=== PATIENT | female | born 1970 | race Caucasian/White ===

== ENCOUNTER → 2016-12-24 | Outpatient (CLI) | payer MEDICAID ==
[~2016-12-24] MED LIST: /METO5TA PO; ALBU17IN INH; ALBU83IN INH; AMBI10TA PO; BACITAB3 PO; BACT800T5 PO; BUSP10TA PO; BUSP15TA47 PO; CALTTAB2 PO; CELE20TA PO; CELE40TA PO; CENTRAL LINE FLUSH IV; CIPR500T3 PO; CITA20TA4 PO; CITR1SOL PO; CRES40TA PO; CRES5TAB PO; DIFL150T PO; DIOV80TA3 PO; DOXY75CA3 PO; DRIS50002 PO; ELIQ5TAB PO; FLUC150T PO; FOLI1TAB2 PO; HUMA100I SC; HUMA100I3 SC; INSUDET SC; INSUHUMDS SC; KEFL500C7 PO; KLOR1POW2 PO; LASI20TA PO; LASI40TA PO; LEVA750T PO; LEVO500T PO; LEVO750T PO; LIDO1DIS2 TD; LIDO5DIS36 TD; META800T82 PO; METH2.5TA PO; MILKSUS5 PO; MULTTAB6 PO; PERC10TA17 PO; PERC5TAB PO; PERC7.5T12 PO; PERCOCET PO; PHEN25IN3 PO; PRED10TA PO; PROA1AER INH; PROBCAP14 PO; PROBCAP4 PO; PROZ40CA PO; ROBA750T4 PO; SENO8.6T10 PO; SENO8.6T9 PO; SERO1TAB PO; SILV1CRE19 TOP; SKEL-29 PO; SPIR25TA2 PO; TYLE650T30 PO; VALS1TAB49 PO; VANC500I IV; VITA500047 PO; VITMTA PO; ZYVO100T PO; mag citrate PO
--- NOTE | 2016-12-24 11:07 | REPMRS ---
Patient History The patient states she had a clinical breast exam in 2015. Patient has history of other cancer at age 37. Family history of breast cancer in 3 maternal aunts under age 50, endometrial cancer in maternal aunt under age 50, unknown cancer in maternal aunt under age 50, endometrial cancer in maternal grandmother under age 50, unknown cancer in 2 maternal cousins under age 50, endometrial cancer in 2 other maternal cousins under age 50, breast cancer in 2 other maternal cousins under age 50, and unknown cancer in 2 maternal uncles under age 50. Took hormonal contraceptives for 11 years. Patient states she has had a 9 lbs intentional weight loss since her last mammo Patient has very limited movement of both shoulders Digital Mammo Screening Bilat: December 24, 2016 - Exam #: [id number] Bilateral CC and MLO view(s) were taken. Technologist: Jessica Godinez, Technologist Prior study comparison: November 09, 2015, bilateral digital mammo screening bilat performed at [facility]. November 07, 2014, bilateral bilat screen digital mammo, performed at [facility] ([facility]). FINDINGS: There are scattered fibroglandular densities. There has been no change in the appearance of the mammogram from the prior studies. There is a mild amount of residual fibroglandular tissue which is fairly symmetric. There is no interval development of dominant mass, architectural distortion, or clustered microcalcification suggestive of malignancy. ASSESSMENT: BI-RADS/ACR category 1 mammogram. Negative. Recommendation Routine screening mammogram in 1 year (for women over age 40). This mammogram was interpreted with the aid of an FDA-approved computer-aided dectection system. Electronically Signed By: Shawn Aguirre MD 12/24/16 [id number]
== END ==
LOC: M RAD 10:08
PROVIDERS: ATTEND Internal Medicine
DX: Z12.39 Encounter for other screening for malignant neoplasm of breast (principal)

== ENCOUNTER 2016-12-26 10:12 | Emergency (ER) | payer MEDICAID ==
--- NOTE | 2016-12-26 11:11 | REP ---
Clinical: Trauma . Comparison: None . Findings: The ventricles, sulci, and cisterns are normal in position and appearance. Aguirre-white differentiation is maintained. No acute intracranial hemorrhage, mass/mass effect, pathology or trauma/injury. No evidence for acute infarction. No extra-axial fluid collection. Calvarium is intact. Paranasal sinuses and mastoid air cells are clear. Impression: Normal noncontrast head CT. No evidence for acute intracranial pathology or trauma/injury. Signed by Kelechi Gonzalez MD 12/26/2016 11:03 A
--- NOTE | 2016-12-26 11:29 | EDDOCDS ---
Physician Documentation [facility] Name: Ayaka Levine Age: 46 yrs Sex: Female : 1970 Arrival Date: 12/26/2016 Time: 10:12 Bed 12 Private MD: Agustin Boogie Disposition: 12/26 11:21 Critical Care: Critical care not applicable. pc Disposition: 12/26/16 11:22 Discharged to Home/Self Care. Impression: Fall on same level from slipping, tripping and stumbling, Contusion of scalp. - Condition is Stable. - Discharge Instructions: Facial or Scalp Contusion. - Medication Reconciliation, Local Pharmacy Hours form. - Follow up: Agustin Boogie; When: Call to arrange an appointment; Reason: Continuance of care. - Problem is new. - Symptoms have improved. HPI: 10:46 This 46 yrs old Female presents to ER via Walkin/Carried/Asstd with pc complaints of Fall Injury. 10:46 The history is obtained from the patient. She has chronic right leg weakness and says pc it gave out while she was walking in her home today. She fell and says she struck her head on a coffee table. She denies LOC but says she has vomited twice since. She is on Eliquis for a right leg DVT. She also complains of aching in her wrists and forearms. At their worst, the symptoms were moderate. In the emergency department, the symptoms are mild. The patient has experienced similar episodes in the past, several times. The patient has not recently seen a physician. Historical: - Allergies: Dilaudid (stops breathing); Latex (Rash); - Home Meds: 1. albuterol sulfate 2.5 mg /3 mL (0.083 %) Inhl nebu every 6 hours 2. Aldactone 25 mg Oral tab 1 tab once daily 3. Celexa 20 mg Oral tab 1 tab once daily 4. Crestor 40 mg Oral tab 1 tab nightly 5. Diovan 40 mg Oral tab once daily 6. Ambien 10 mg Oral tab 1 tab once daily 7. BuSpar 15 mg Oral tab three times a day 8. Lasix 40 mg Oral tab 1 tab once daily 9. Percocet 10-325 mg Oral tab 1 tab twice a day as needed 10. Seroquel 250mg Oral once daily 11. Humalog 100 unit/mL Sub-Q crtg With every meal 12. Levemir 70 units subcutaneous soln daily 13. Eliquis 5 mg oral tab 1 tab 2 times per day - PMHx: Anxiety; Asthma; back pain; Diabetes - IDDM: controlled; DVT; Hypercholesterolemia; Hypertension; Rheumatoid Arthritis; - PSHx: Appendectomy; Oophorectomy- Right; Cholecystectomy; Hysterectomy; toe right foot; shoulder surgeries bilateral 3 times each; - The history from nurses notes was reviewed: and I agree with what is documented. - Social history: Smoking status: Patient states former smoker of tobacco. No barriers to communication noted, The patient speaks fluent Turkmen, Speaks appropriately for age. - : The pt / caregiver states he / she is not on anticoagulants. Home medication list is obtained from the patient. - Hospitalizations: : No recent hospitalization is reported. - Exposure Risk Screening:: None identified. - Immunization history:: All immunizations up-to-date. - Family history: Not pertinent. - Social history:: the patient is a non-smoker, the patient does not drink alcohol. 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 pc Exam: 10:46 General Appearance: no acute distress, alert. pc 10:46 EENT: normal eye inspection, ears, nose and throat normal, pharynx normal, mucous membranes moist no apparent trauma, no signs of trauma to scalp at point of patient identified contact with the table. 10:46 Neck: The exam reveals no acute abnormalities. ROM is normal and painless. No nuchal rigidity is noted.. 10:46 Respiratory: no respiratory distress, normal breath sounds, chest non-tender. 10:46 CVS: regular pulse rate, regular rhythm, normal S1 and S2, no murmurs, strong peripheral pulses. 10:46 Abdomen: soft, non-tender, no organomegaly, normal bowel sounds. 10:46 Back: normal inspection. 10:46 Skin: skin color is normal, warm, dry. 10:46 Extremities: The extremities have a grossly normal appearance, are non-tender, without acute ROM abnormalities. 10:46 Neuro: oriented x 3, cranial nerves normal as tested, no motor deficits, no sensory deficits. 10:46 Psych: normal mood. Vital Signs: 10:14 BP 147 / 79; Pulse 94; Resp 18; Temp 97.6(O); Pulse Ox 100% on R/A; Weight 111.13 kg / ct3 245 lbs (R); Height 5 ft. 7 in. (170.18 cm) (R); Pain 8/10; 11:27 BP 117 / 58; Pulse 94; Resp 16; Temp 98.7(TE); Pulse Ox 96% on R/A; Pain 9/10; mlb1 10:14 Body Mass Index 38.37 (111.13 kg, 170.18 cm) ct3 MDM: 10:46 Differential Diagnosis: fall, head injury without evidence of trauma, on Eliquis. Plan: pc CT. 10:47 CT Head Without Contrast Ordered. EDFL 11:21 Data reviewed: old medical records, vital signs, nurses notes, all radiology studies pc and available results. Test interpretation: interpreted by Radiologist and personally reviewed, Head CT; no acute disease. The patient has been re-examined and re-evaluated. The clinical presentation did not require any ED treatment or interventions. Disposition: The historical points, examination findings, and any diagnostic results supporting the provided diagnosis, were discussed with the patient or legal guardian. The need for outpatient follow up with the provider listed on their discharge instructions was discussed. They were encouraged to return to [facility], or the nearest ED, if symptoms worsen/persist, or for any other questions/concerns. Signatures: Dispatcher [employer] Saul Melton MD MD pc Barney, Michael B RN RN mlb1 Jessica EscotoRN RN jo3 MTDEnriqueta
--- NOTE | 2016-12-26 11:29 | EDDOCDS ---
Nurse's Notes [facility] Name: Ayaka Levine Age: 46 yrs Sex: Female : 1970 Arrival Date: 12/26/2016 Time: 10:12 Bed 12 Private MD: Agustin Boogie Diagnosis: Fall on same level from slipping, tripping and stumbling;Contusion of scalp Presentation: 12/26 10:27 Presenting complaint: Patient states: Pt fell at 0800 and has pain to mario wrists, head jo3 and right hip. Had 2 episodes of vomiting at home. Pt is on anticoagulants. Adult Sepsis Screening: The patient does not have new or worsening altered mentation. Patient's respiratory rate is less than 22. Systolic blood pressure is greater than 100. Patient has a qSOFA score of 0- Negative Sepsis Screen. Suicide/Homicide risk assessment- the patient denies having any suicidal and/or homicidal ideations and does not present with any other emotional, behavioral or mental health complaints. Status: Patient is not a services engineer or dependent. Transition of care: patient was not received from another setting of care. 10:27 Acuity: ROSMERY Level 2 jo3 10:27 Method Of Arrival: Walkin/Carried/Asstd jo3 Triage Assessment: 10:30 General: Appears in no apparent distress, Behavior is appropriate for age, cooperative. jo3 Pain: Pain currently is 8 out of 10 on a pain scale. HIV screening NA for this visit Offered previously. Neurological: Level of Consciousness is awake, alert, Oriented to person, place, time. Respiratory: Airway is patent Respiratory effort is even, unlabored. Derm: Skin is pink, warm & dry. 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 albuterol sulfate 2.5 mg /3 mL (0.083 %) Inhl nebu every 6 hours 2. Aldactone 25 mg Oral tab 1 tab once daily 3. Celexa 20 mg Oral tab 1 tab once daily 4. Crestor 40 mg Oral tab 1 tab nightly 5. Diovan 40 mg Oral tab once daily 6. Ambien 10 mg Oral tab 1 tab once daily 7. BuSpar 15 mg Oral tab three times a day 8. Lasix 40 mg Oral tab 1 tab once daily 9. Percocet 10-325 mg Oral tab 1 tab twice a day as needed 10. Seroquel 250mg Oral once daily 11. Humalog 100 unit/mL Sub-Q crtg With every meal 12. Levemir 70 units subcutaneous soln daily 13. Eliquis 5 mg oral tab 1 tab 2 times per day - PMHx: Anxiety; Asthma; back pain; Diabetes - IDDM: controlled; DVT; Hypercholesterolemia; Hypertension; Rheumatoid Arthritis; - PSHx: Appendectomy; Oophorectomy- Right; Cholecystectomy; Hysterectomy; toe right foot; shoulder surgeries bilateral 3 times each; - The history from nurses notes was reviewed: and I agree with what is documented. - Social history: Smoking status: Patient states former smoker of tobacco. No barriers to communication noted, The patient speaks fluent Lithuanian, Speaks appropriately for age. - : The pt / caregiver states he / she is not on anticoagulants. Home medication list is obtained from the patient. - Hospitalizations: : No recent hospitalization is reported. - Exposure Risk Screening:: None identified. - Immunization history:: All immunizations up-to-date. - Family history: Not pertinent. - Social history:: the patient is a non-smoker, the patient does not drink alcohol. Screenin:27 Screening information is obtained from the patient. Fall risk: No risks identified. mlb1 Assistance ADL's: requires no assistance with activities of daily living. Abuse/DV Screen: The patient / caregiver reports he/she is: not in a situation that causes fear, pain or injury. Nutritional screening: No deficits noted. Advance Directives: Currently, there is no health care proxy. home support is adequate. Assessment: 11:00 General: Appears in no apparent distress, Behavior is cooperative. Pain: Location: mlb1 right frontal area, right temporal area and right side of forehead Pain currently is 9 out of 10 on a pain scale. Pain: Location: right hip. Neurological: Level of Consciousness is awake, alert, Oriented to person, place, time, Speech is normal, Pupils are PERRLA. Respiratory: Airway is patent Respiratory effort is even, unlabored, Breath sounds are clear bilaterally. Musculoskeletal: Range of motion intact in all extremities. 11:26 General: Appears in no apparent distress, comfortable, Behavior is appropriate for age, mlb1 cooperative. Pain: Location: right hip and right side of forehead and right temporal area and right frontal area Pain currently is 9 out of 10 on a pain scale. Neurological: No deficits noted. Derm: No deficits noted. Musculoskeletal: No deficits noted. Injury Description: no bruising or swelling noted. Vital Signs: 10:14 BP 147 / 79; Pulse 94; Resp 18; Temp 97.6(O); Pulse Ox 100% on R/A; Weight 111.13 kg ct3 (R); Height 5 ft. 7 in. (170.18 cm) (R); Pain 8/10; 11:27 BP 117 / 58; Pulse 94; Resp 16; Temp 98.7(TE); Pulse Ox 96% on R/A; Pain 9/10; mlb1 10:14 Body Mass Index 38.37 (111.13 kg, 170.18 cm) ct3 Vitals: 10:14 Log In Time: December 26, 2016 at 10:11. ct3 ED Course: 10:13 Patient visited by Lorena Jackson PCA. ct3 10:13 Patient moved to Waiting ct3 10:14 Agustin Boogie is Private Physician. ct3 10:15 Patient moved to Pre RCE ct3 10:28 Triage Initiated jo3 10:31 Patient visited by Jessica Escoto RN. jo3 10:40 Patient moved to 12 jo3 10:41 Saul Arreola MD is Attending Physician. pc 10:42 Patient visited by Claritza Barraza PCA. jb5 10:42 Pt greeted and oriented to ED. Patient advised of names of staff involved in care, jb5 location of call [place], wait times and NPO status. Patient has correct armband on for positive identification. Placed in gown. Bed in low position. Side rails up X2. Property :Personal belongings accompany Pt. 10:43 Patient visited by Claritza Barraza PCA. jb5 10:45 Patient visited by Saul Arreola MD. pc 11:13 CT Head Without Contrast Returned. EDMS 11:22 Agustin Boogie is Referral Physician. pc 11:28 Patient visited by Den Carter RN. mlb1 11:28 The patient / caregiver is instructed regarding the plan of care and ED course. mlb1 11:28 No IV's were initiated during this patient's visit. No procedures done that require mlb1 assistance. Order Results: Radiology Order: CT Head Without Contrast Test: CT Head Without Contrast REASON FOR EXAMINATION: HI on blood thinners; Clinical: Trauma .; ; Comparison: None .; ; Findings:; The ventricles, sulci, and cisterns are normal in position and appearance.; Aguirre-white differentiation is maintained. No acute intracranial hemorrhage,; mass/mass effect, pathology or trauma/injury. No evidence for acute infarction.; No extra-axial fluid collection. Calvarium is intact. Paranasal sinuses and; mastoid air cells are clear.; ; Impression:; Normal noncontrast head CT.; No evidence for acute intracranial pathology or trauma/injury.; ; ; Signed by; Kelechi Gonzalez MD 12/26/2016 11:03 A; Outcome: 11:01 CT Study completed. mlb1 11:22 Discharge ordered by Provider. 11:28 Discharge Assessment: Patient awake, alert and oriented x 3. No cognitive and/or mlb1 functional deficits noted. Patient verbalized understanding of disposition instructions. Patient awake and alert. patient administered narcotics - no. The following High Risk Discharge criteria are identified: None. Discharged to home ambulatory. Condition: good. Discharge instructions given to patient, Instructed on discharge instructions, follow up and referral plans. Demonstrated understanding of instructions, medications, Pt was receptive of discharge instructions/ teaching. 11:28 Patient left the ED. mlb1 Signatures: Dispatcher [employer] Saul Melton MD MD pc Barney, Michael B RN RN mlb1 Claritza Barraza, OCCUPATIONAL HEALTH PHYSICIAN OCCUPATIONAL HEALTH PHYSICIAN jb5 Jessica Escoto RN RN naif3 Lorena Jackson, OCCUPATIONAL HEALTH PHYSICIAN OCCUPATIONAL HEALTH PHYSICIAN ct3 MTDD
--- NOTE | 2016-12-28 12:30 | EDDOCDS ---
Nurse's Notes [facility] Name: Ayaka Levine Age: 46 yrs Sex: Female : 1970 Arrival Date: 12/26/2016 Time: 10:12 Bed 12 Private MD: Agustin Boogie Diagnosis: Fall on same level from slipping, tripping and stumbling;Contusion of scalp Presentation: 12/26 10:27 Presenting complaint: Patient states: Pt fell at 0800 and has pain to mario wrists, head jo3 and right hip. Had 2 episodes of vomiting at home. Pt is on anticoagulants. Adult Sepsis Screening: The patient does not have new or worsening altered mentation. Patient's respiratory rate is less than 22. Systolic blood pressure is greater than 100. Patient has a qSOFA score of 0- Negative Sepsis Screen. Suicide/Homicide risk assessment- the patient denies having any suicidal and/or homicidal ideations and does not present with any other emotional, behavioral or mental health complaints. Status: Patient is not a patient financial services coordinator or dependent. Transition of care: patient was not received from another setting of care. 10:27 Acuity: ROSMERY Level 2 jo3 10:27 Method Of Arrival: Walkin/Carried/Asstd jo3 Triage Assessment: 10:30 General: Appears in no apparent distress, Behavior is appropriate for age, cooperative. jo3 Pain: Pain currently is 8 out of 10 on a pain scale. HIV screening NA for this visit Offered previously. Neurological: Level of Consciousness is awake, alert, Oriented to person, place, time. Respiratory: Airway is patent Respiratory effort is even, unlabored. Derm: Skin is pink, warm & dry. 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 albuterol sulfate 2.5 mg /3 mL (0.083 %) Inhl nebu every 6 hours 2. Aldactone 25 mg Oral tab 1 tab once daily 3. Celexa 20 mg Oral tab 1 tab once daily 4. Crestor 40 mg Oral tab 1 tab nightly 5. Diovan 40 mg Oral tab once daily 6. Ambien 10 mg Oral tab 1 tab once daily 7. BuSpar 15 mg Oral tab three times a day 8. Lasix 40 mg Oral tab 1 tab once daily 9. Percocet 10-325 mg Oral tab 1 tab twice a day as needed 10. Seroquel 250mg Oral once daily 11. Humalog 100 unit/mL Sub-Q crtg With every meal 12. Levemir 70 units subcutaneous soln daily 13. Eliquis 5 mg oral tab 1 tab 2 times per day - PMHx: Anxiety; Asthma; back pain; Diabetes - IDDM: controlled; DVT; Hypercholesterolemia; Hypertension; Rheumatoid Arthritis; - PSHx: Appendectomy; Oophorectomy- Right; Cholecystectomy; Hysterectomy; toe right foot; shoulder surgeries bilateral 3 times each; - The history from nurses notes was reviewed: and I agree with what is documented. - Social history: Smoking status: Patient states former smoker of tobacco. No barriers to communication noted, The patient speaks fluent Serbian, Speaks appropriately for age. - : The pt / caregiver states he / she is not on anticoagulants. Home medication list is obtained from the patient. - Hospitalizations: : No recent hospitalization is reported. - Exposure Risk Screening:: None identified. - Immunization history:: All immunizations up-to-date. - Family history: Not pertinent. - Social history:: the patient is a non-smoker, the patient does not drink alcohol. Screenin:27 Screening information is obtained from the patient. Fall risk: No risks identified. mlb1 Assistance ADL's: requires no assistance with activities of daily living. Abuse/DV Screen: The patient / caregiver reports he/she is: not in a situation that causes fear, pain or injury. Nutritional screening: No deficits noted. Advance Directives: Currently, there is no health care proxy. home support is adequate. Assessment: 11:00 General: Appears in no apparent distress, Behavior is cooperative. Pain: Location: mlb1 right frontal area, right temporal area and right side of forehead Pain currently is 9 out of 10 on a pain scale. Pain: Location: right hip. Neurological: Level of Consciousness is awake, alert, Oriented to person, place, time, Speech is normal, Pupils are PERRLA. Respiratory: Airway is patent Respiratory effort is even, unlabored, Breath sounds are clear bilaterally. Musculoskeletal: Range of motion intact in all extremities. 11:26 General: Appears in no apparent distress, comfortable, Behavior is appropriate for age, mlb1 cooperative. Pain: Location: right hip and right side of forehead and right temporal area and right frontal area Pain currently is 9 out of 10 on a pain scale. Neurological: No deficits noted. Derm: No deficits noted. Musculoskeletal: No deficits noted. Injury Description: no bruising or swelling noted. Vital Signs: 10:14 BP 147 / 79; Pulse 94; Resp 18; Temp 97.6(O); Pulse Ox 100% on R/A; Weight 111.13 kg ct3 (R); Height 5 ft. 7 in. (170.18 cm) (R); Pain 8/10; 11:27 BP 117 / 58; Pulse 94; Resp 16; Temp 98.7(TE); Pulse Ox 96% on R/A; Pain 9/10; mlb1 10:14 Body Mass Index 38.37 (111.13 kg, 170.18 cm) ct3 Vitals: 10:14 Log In Time: December 26, 2016 at 10:11. ct3 ED Course: 10:13 Patient visited by Lorena Jackson PCA. ct3 10:13 Patient moved to Waiting ct3 10:14 Agustin Boogie is Private Physician. ct3 10:15 Patient moved to Pre RCE ct3 10:28 Triage Initiated jo3 10:31 Patient visited by Jessica Escoto RN. jo3 10:40 Patient moved to 12 jo3 10:41 Saul Arreola MD is Attending Physician. pc 10:42 Patient visited by Claritza Barraza PCA. jb5 10:42 Pt greeted and oriented to ED. Patient advised of names of staff involved in care, jb5 location of call [place], wait times and NPO status. Patient has correct armband on for positive identification. Placed in gown. Bed in low position. Side rails up X2. Property :Personal belongings accompany Pt. 10:43 Patient visited by Claritza Barraza PCA. jb5 10:45 Patient visited by Saul Arreola MD. pc 11:13 CT Head Without Contrast Returned. EDMS 11:22 Agustin Boogie is Referral Physician. pc 11:28 Patient visited by Den Carter RN. mlb1 11:28 The patient / caregiver is instructed regarding the plan of care and ED course. mlb1 11:28 No IV's were initiated during this patient's visit. No procedures done that require mlb1 assistance. 11:34 [facility] Payment Agreement was scanned into [employer] and attached to record. jp5 13:36 Patient name changed from Ayaka\S\A\S\Levine\S\ to Ayaka\S\Suellen\S\Levine. EDMS Order Results: Radiology Order: CT Head Without Contrast Test: CT Head Without Contrast REASON FOR EXAMINATION: HI on blood thinners; Clinical: Trauma .; ; Comparison: None .; ; Findings:; The ventricles, sulci, and cisterns are normal in position and appearance.; Aguirre-white differentiation is maintained. No acute intracranial hemorrhage,; mass/mass effect, pathology or trauma/injury. No evidence for acute infarction.; No extra-axial fluid collection. Calvarium is intact. Paranasal sinuses and; mastoid air cells are clear.; ; Impression:; Normal noncontrast head CT.; No evidence for acute intracranial pathology or trauma/injury.; ; ; Signed by; Kelechi Gonzalez MD 12/26/2016 11:03 A; Outcome: 11:01 CT Study completed. mlb1 11:22 Discharge ordered by Provider. 11:28 Discharge Assessment: Patient awake, alert and oriented x 3. No cognitive and/or mlb1 functional deficits noted. Patient verbalized understanding of disposition instructions. Patient awake and alert. patient administered narcotics - no. The following High Risk Discharge criteria are identified: None. Discharged to home ambulatory. Condition: good. Discharge instructions given to patient, Instructed on discharge instructions, follow up and referral plans. Demonstrated understanding of instructions, medications, Pt was receptive of discharge instructions/ teaching. 11:28 Patient left the ED. mlb1 Signatures: Dispatcher [employer] EDMS Saul Arreola MD MD pc Barney, Michael B RN RN mlb1 Claritza Barraza, ELEMENTARY SCHOOL SCIENCE TEACHER ELEMENTARY SCHOOL SCIENCE TEACHER jb5 Jessica Escoto RN RN Lorena Tsang, ELEMENTARY SCHOOL SCIENCE TEACHER ELEMENTARY SCHOOL SCIENCE TEACHER ct3 Angela Méndez jp5 Chart Complete MTDD
--- NOTE | 2016-12-28 12:30 | EDDOCDS ---
Physician Documentation [facility] Name: Ayaka Levine Age: 46 yrs Sex: Female : 1970 Arrival Date: 12/26/2016 Time: 10:12 Bed 12 Private MD: Agustin Boogie Disposition: 12/26 11:21 Critical Care: Critical care not applicable. pc Disposition: 12/26/16 11:22 Discharged to Home/Self Care. Impression: Fall on same level from slipping, tripping and stumbling, Contusion of scalp. - Condition is Stable. - Discharge Instructions: Facial or Scalp Contusion. - Medication Reconciliation, Local Pharmacy Hours form. - Follow up: Agustin Boogie; When: Call to arrange an appointment; Reason: Continuance of care. - Problem is new. - Symptoms have improved. HPI: 10:46 This 46 yrs old Female presents to ER via Walkin/Carried/Asstd with pc complaints of Fall Injury. 10:46 The history is obtained from the patient. She has chronic right leg weakness and says pc it gave out while she was walking in her home today. She fell and says she struck her head on a coffee table. She denies LOC but says she has vomited twice since. She is on Eliquis for a right leg DVT. She also complains of aching in her wrists and forearms. At their worst, the symptoms were moderate. In the emergency department, the symptoms are mild. The patient has experienced similar episodes in the past, several times. The patient has not recently seen a physician. Historical: - Allergies: Dilaudid (stops breathing); Latex (Rash); - Home Meds: 1. albuterol sulfate 2.5 mg /3 mL (0.083 %) Inhl nebu every 6 hours 2. Aldactone 25 mg Oral tab 1 tab once daily 3. Celexa 20 mg Oral tab 1 tab once daily 4. Crestor 40 mg Oral tab 1 tab nightly 5. Diovan 40 mg Oral tab once daily 6. Ambien 10 mg Oral tab 1 tab once daily 7. BuSpar 15 mg Oral tab three times a day 8. Lasix 40 mg Oral tab 1 tab once daily 9. Percocet 10-325 mg Oral tab 1 tab twice a day as needed 10. Seroquel 250mg Oral once daily 11. Humalog 100 unit/mL Sub-Q crtg With every meal 12. Levemir 70 units subcutaneous soln daily 13. Eliquis 5 mg oral tab 1 tab 2 times per day - PMHx: Anxiety; Asthma; back pain; Diabetes - IDDM: controlled; DVT; Hypercholesterolemia; Hypertension; Rheumatoid Arthritis; - PSHx: Appendectomy; Oophorectomy- Right; Cholecystectomy; Hysterectomy; toe right foot; shoulder surgeries bilateral 3 times each; - The history from nurses notes was reviewed: and I agree with what is documented. - Social history: Smoking status: Patient states former smoker of tobacco. No barriers to communication noted, The patient speaks fluent Norwegian, Speaks appropriately for age. - : The pt / caregiver states he / she is not on anticoagulants. Home medication list is obtained from the patient. - Hospitalizations: : No recent hospitalization is reported. - Exposure Risk Screening:: None identified. - Immunization history:: All immunizations up-to-date. - Family history: Not pertinent. - Social history:: the patient is a non-smoker, the patient does not drink alcohol. 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 pc Exam: 10:46 General Appearance: no acute distress, alert. pc 10:46 EENT: normal eye inspection, ears, nose and throat normal, pharynx normal, mucous membranes moist no apparent trauma, no signs of trauma to scalp at point of patient identified contact with the table. 10:46 Neck: The exam reveals no acute abnormalities. ROM is normal and painless. No nuchal rigidity is noted.. 10:46 Respiratory: no respiratory distress, normal breath sounds, chest non-tender. 10:46 CVS: regular pulse rate, regular rhythm, normal S1 and S2, no murmurs, strong peripheral pulses. 10:46 Abdomen: soft, non-tender, no organomegaly, normal bowel sounds. 10:46 Back: normal inspection. 10:46 Skin: skin color is normal, warm, dry. 10:46 Extremities: The extremities have a grossly normal appearance, are non-tender, without acute ROM abnormalities. 10:46 Neuro: oriented x 3, cranial nerves normal as tested, no motor deficits, no sensory deficits. 10:46 Psych: normal mood. Vital Signs: 10:14 BP 147 / 79; Pulse 94; Resp 18; Temp 97.6(O); Pulse Ox 100% on R/A; Weight 111.13 kg / ct3 245 lbs (R); Height 5 ft. 7 in. (170.18 cm) (R); Pain 8/10; 11:27 BP 117 / 58; Pulse 94; Resp 16; Temp 98.7(TE); Pulse Ox 96% on R/A; Pain 9/10; mlb1 10:14 Body Mass Index 38.37 (111.13 kg, 170.18 cm) ct3 MDM: 10:46 Differential Diagnosis: fall, head injury without evidence of trauma, on Eliquis. Plan: pc CT. 10:47 CT Head Without Contrast Ordered. EDAK 11:21 Data reviewed: old medical records, vital signs, nurses notes, all radiology studies pc and available results. Test interpretation: interpreted by Radiologist and personally reviewed, Head CT; no acute disease. The patient has been re-examined and re-evaluated. The clinical presentation did not require any ED treatment or interventions. Disposition: The historical points, examination findings, and any diagnostic results supporting the provided diagnosis, were discussed with the patient or legal guardian. The need for outpatient follow up with the provider listed on their discharge instructions was discussed. They were encouraged to return to [facility], or the nearest ED, if symptoms worsen/persist, or for any other questions/concerns. 11:34 [facility] Payment Agreement was scanned into [employer] and attached to record. jp5 11:34 Financial registration complete. jp5 Signatures: [facility] EDAK Saul Arreola MD MD pc Barney, Michael B RN RN mlb1 Jessica EscotoRN RN jo3 Angela Méndez jp5 The chart was reviewed and I authenticate all verbal orders and agree with the evaluation and treatment provided.Attachments: 11:34 [facility] Payment Agreement jp5 Chart Complete MTDD
--- NOTE | 2016-12-28 12:30 | EDDOCDS ---
Physician Documentation [facility] Name: Ayaka Levine Age: 46 yrs Sex: Female : 1970 Arrival Date: 12/26/2016 Time: 10:12 Bed 12 Private MD: Agustin Boogie Disposition: 12/26 11:21 Critical Care: Critical care not applicable. pc Disposition: 12/26/16 11:22 Discharged to Home/Self Care. Impression: Fall on same level from slipping, tripping and stumbling, Contusion of scalp. - Condition is Stable. - Discharge Instructions: Facial or Scalp Contusion. - Medication Reconciliation, Local Pharmacy Hours form. - Follow up: Agustin Boogie; When: Call to arrange an appointment; Reason: Continuance of care. - Problem is new. - Symptoms have improved. HPI: 10:46 This 46 yrs old Female presents to ER via Walkin/Carried/Asstd with pc complaints of Fall Injury. 10:46 The history is obtained from the patient. She has chronic right leg weakness and says pc it gave out while she was walking in her home today. She fell and says she struck her head on a coffee table. She denies LOC but says she has vomited twice since. She is on Eliquis for a right leg DVT. She also complains of aching in her wrists and forearms. At their worst, the symptoms were moderate. In the emergency department, the symptoms are mild. The patient has experienced similar episodes in the past, several times. The patient has not recently seen a physician. Historical: - Allergies: Dilaudid (stops breathing); Latex (Rash); - Home Meds: 1. albuterol sulfate 2.5 mg /3 mL (0.083 %) Inhl nebu every 6 hours 2. Aldactone 25 mg Oral tab 1 tab once daily 3. Celexa 20 mg Oral tab 1 tab once daily 4. Crestor 40 mg Oral tab 1 tab nightly 5. Diovan 40 mg Oral tab once daily 6. Ambien 10 mg Oral tab 1 tab once daily 7. BuSpar 15 mg Oral tab three times a day 8. Lasix 40 mg Oral tab 1 tab once daily 9. Percocet 10-325 mg Oral tab 1 tab twice a day as needed 10. Seroquel 250mg Oral once daily 11. Humalog 100 unit/mL Sub-Q crtg With every meal 12. Levemir 70 units subcutaneous soln daily 13. Eliquis 5 mg oral tab 1 tab 2 times per day - PMHx: Anxiety; Asthma; back pain; Diabetes - IDDM: controlled; DVT; Hypercholesterolemia; Hypertension; Rheumatoid Arthritis; - PSHx: Appendectomy; Oophorectomy- Right; Cholecystectomy; Hysterectomy; toe right foot; shoulder surgeries bilateral 3 times each; - The history from nurses notes was reviewed: and I agree with what is documented. - Social history: Smoking status: Patient states former smoker of tobacco. No barriers to communication noted, The patient speaks fluent Mauritanian, Speaks appropriately for age. - : The pt / caregiver states he / she is not on anticoagulants. Home medication list is obtained from the patient. - Hospitalizations: : No recent hospitalization is reported. - Exposure Risk Screening:: None identified. - Immunization history:: All immunizations up-to-date. - Family history: Not pertinent. - Social history:: the patient is a non-smoker, the patient does not drink alcohol. 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 pc Exam: 10:46 General Appearance: no acute distress, alert. pc 10:46 EENT: normal eye inspection, ears, nose and throat normal, pharynx normal, mucous membranes moist no apparent trauma, no signs of trauma to scalp at point of patient identified contact with the table. 10:46 Neck: The exam reveals no acute abnormalities. ROM is normal and painless. No nuchal rigidity is noted.. 10:46 Respiratory: no respiratory distress, normal breath sounds, chest non-tender. 10:46 CVS: regular pulse rate, regular rhythm, normal S1 and S2, no murmurs, strong peripheral pulses. 10:46 Abdomen: soft, non-tender, no organomegaly, normal bowel sounds. 10:46 Back: normal inspection. 10:46 Skin: skin color is normal, warm, dry. 10:46 Extremities: The extremities have a grossly normal appearance, are non-tender, without acute ROM abnormalities. 10:46 Neuro: oriented x 3, cranial nerves normal as tested, no motor deficits, no sensory deficits. 10:46 Psych: normal mood. Vital Signs: 10:14 BP 147 / 79; Pulse 94; Resp 18; Temp 97.6(O); Pulse Ox 100% on R/A; Weight 111.13 kg / ct3 245 lbs (R); Height 5 ft. 7 in. (170.18 cm) (R); Pain 8/10; 11:27 BP 117 / 58; Pulse 94; Resp 16; Temp 98.7(TE); Pulse Ox 96% on R/A; Pain 9/10; mlb1 10:14 Body Mass Index 38.37 (111.13 kg, 170.18 cm) ct3 MDM: 10:46 Differential Diagnosis: fall, head injury without evidence of trauma, on Eliquis. Plan: pc CT. 10:47 CT Head Without Contrast Ordered. EDWV 11:21 Data reviewed: old medical records, vital signs, nurses notes, all radiology studies pc and available results. Test interpretation: interpreted by Radiologist and personally reviewed, Head CT; no acute disease. The patient has been re-examined and re-evaluated. The clinical presentation did not require any ED treatment or interventions. Disposition: The historical points, examination findings, and any diagnostic results supporting the provided diagnosis, were discussed with the patient or legal guardian. The need for outpatient follow up with the provider listed on their discharge instructions was discussed. They were encouraged to return to [facility], or the nearest ED, if symptoms worsen/persist, or for any other questions/concerns. 11:34 [facility] Payment Agreement was scanned into [employer] and attached to record. jp5 11:34 Financial registration complete. jp5 Signatures: Dispatcher [facility] EDWV Saul Arreola MD MD pc Barney, Michael B RN RN mlb1 Jessica EscotoRN RN jo3 Angela Méndez jp5 The chart was reviewed and I authenticate all verbal orders and agree with the evaluation and treatment provided.Attachments: 11:34 [facility] Payment Agreement jp5 Chart Complete MTDD
== END 2016-12-26 11:28 | disposition home or self-care (01) ==
LOC: M ED 10:12
DX: S00.03XA Contusion of scalp, initial encounter (principal); W01.0XXA Fall on same level from slipping, tripping and stumbling without subsequent striking against object, initial encounter; Y92.019 Unspecified place in single-family (private) house as the place of occurrence of the external cause; Y93.01 Activity, walking, marching and hiking; Y99.8 Other external cause status; M05.40 Rheumatoid myopathy with rheumatoid arthritis of unspecified site; J45.909 Unspecified asthma, uncomplicated; M54.9 Dorsalgia, unspecified; E11.9 Type 2 diabetes mellitus without complications; E78.00 Pure hypercholesterolemia, unspecified; I10 Essential (primary) hypertension; Z86.711 Personal history of pulmonary embolism; Z87.891 Personal history of nicotine dependence; Z79.899 Other long term (current) drug therapy; Z79.4 Long term (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 insulin; Z79.01 Long term (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 anticoagulants; Z88.8 Allergy status to other drugs, medicaments and biological substances; Z91.040 Latex allergy status

== ENCOUNTER → 2017-02-25 | Outpatient (CLI) | payer MEDICAID ==
[2017-02-25 15:46] LABS: BASO % 0.6 % (0.0-1.0); EOS # 0.1 K/mm3 (0.0-0.50); EOS % 1.5 % (0.0-3.0); LARGE UNSTAINED CELL # 0.1 K/mm3 (0.0-0.4); LARGE UNSTAINED CELL % 1.3 % (0.0-4.0); LYMPH # 2.5 K/mm3 (1.5-4.5); LYMPH % 35.3 % (24.0-44.0); MEAN CORPUSCULAR HEMOGLOBIN 30.5 pg (27.0-33.0); MEAN CORPUSCULAR HGB CONC 34.8 g/dl (32.0-36.5); MEAN CORPUSCULAR VOLUME 87.8 fl (80.0-96.0); MONO # 0.2 K/mm3 (0.0-0.8); MONO % 2.3 % (0.0-5.0); NEUTROPHILS # 4.2 K/mm3 (1.8-7.7); PLATELET COUNT, AUTOMATED 240 k/mm3 (150-450); RED CELL DISTRIBUTION WIDTH 11.8 % (11.5-14.5); WHITE BLOOD COUNT 7.1 K/mm3 (4.0-10.0)
[2017-02-25 15:49] LABS: ALBUMIN 3.7 GM/DL (3.2-5.2); ALBUMIN/GLOBULIN RATIO 1.12 (1.00-1.93); ALKALINE PHOSPHATASE 78 U/L (45-117); ALT/SGPT 36 U/L (12-78); ANION GAP 9 MEQ/L (8-16); AST/SGOT 18 U/L (15-37); BILIRUBIN,TOTAL 0.3 MG/DL (0.2-1.0); BLOOD UREA NITROGEN 11 MG/DL (7-18); CALCIUM LEVEL 8.5 MG/DL (8.5-10.1); CARBON DIOXIDE LEVEL 28 MEQ/L (21-32); CHLORIDE LEVEL 102 MEQ/L (98-107); COMPLEMENT C3 138 MG/DL (90-180); COMPLEMENT C4 23.3 MG/DL (10-40); CREATININE FOR GFR 0.86 MG/DL (0.55-1.02); GLOMERULAR FILTRATION RATE > 60.0 (>58); IMMUNOGLOBULIN E 40.8 IU/ML (<100); IMMUNOGLOBULIN G 1170 MG/DL (681-1648); IMMUNOGLOBULIN M 93.4 MG/DL (40-230); POTASSIUM SERUM 4.4 MEQ/L (3.5-5.1); SODIUM LEVEL 139 MEQ/L (136-145)
[2017-02-25 15:58] LABS: GLUCOSE, FASTING 436 MG/DL (70-105)
[2017-02-28 08:06] LABS: SJOGREN'S ANTI SS-A <0.2 AI (0.0-0.9); SJOGREN'S ANTI SS-B 1.1 AI (0.0-0.9)
== END ==
LOC: M LAB 14:04
PROVIDERS: ATTEND Internal Medicine Rheumatology
DX: M19.90 Unspecified osteoarthritis, unspecified site (principal)

== ENCOUNTER 2017-07-05 21:47 | Emergency (ER) | payer OTHER, MEDICARE, MEDICAID ==
[~2017-07-05] VITALS: Ht 170.2 cm; Wt 122.7 kg
[~2017-07-05 21:47] MED LIST changes: +BACITAB PO; -BACITAB3 PO; -FOLI1TAB2 PO; +FOLI1TAB4 PO; +KEFL500C17 PO; -KEFL500C7 PO; -LEVA750T PO; +LEVA750T7 PO; -LIDO5DIS36 TD; +LIDO5DIS41 TD; -PERC10TA17 PO; +PERC10TA26 PO; -PROA1AER INH; +PROAAER10 INH; -SILV1CRE19 TOP; +SILV1CRE60 TOP; -SKEL-29 PO; +SKEL800T97 PO
[2017-07-05] MEDS ORDERED: NS 1,000 ML IV ONE (22:15)
[2017-07-05] MEDS ORDERED: MORPHINE 2 MG/ML 1ML SYRINGE IV ONE (22:30)
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
[2017-07-05 23:11] LABS: BASO % 0.5 % (0.0-1.0); EOS # 0.1 K/mm3 (0.0-0.50); LARGE UNSTAINED CELL # 0.1 K/mm3 (0.0-0.4); LARGE UNSTAINED CELL % 0.8 % (0.0-4.0); LYMPH % 18.2 % (24.0-44.0); MEAN CORPUSCULAR HEMOGLOBIN 30.5 pg (27.0-33.0); MEAN CORPUSCULAR HGB CONC 33.6 g/dl (32.0-36.5); MEAN CORPUSCULAR VOLUME 90.6 fl (80.0-96.0); MONO # 0.3 K/mm3 (0.0-0.8); MONO % 3.1 % (0.0-5.0); NEUTROPHILS # 8.1 K/mm3 (1.8-7.7); NEUTROPHILS % 76.4 % (36.0-66.0); PLATELET COUNT, AUTOMATED 251 k/mm3 (150-450); RED CELL DISTRIBUTION WIDTH 12.7 % (11.5-14.5); WHITE BLOOD COUNT 10.6 K/mm3 (4.0-10.0)
[2017-07-05 23:19] LABS: INR 1.15
[2017-07-05 23:37] LABS: ALBUMIN 3.3 GM/DL (3.2-5.2); ALKALINE PHOSPHATASE 76 U/L (45-117); ALT/SGPT 44 U/L (12-78); AMYLASE 22 U/L (25-115); ANION GAP 6 MEQ/L (8-16); AST/SGOT 54 U/L (15-37); BILIRUBIN,DIRECT < 0.1 MG/DL (0.0-0.2); BILIRUBIN,TOTAL 0.3 MG/DL (0.2-1.0); BLOOD UREA NITROGEN 10 MG/DL (7-18); CALCIUM LEVEL 8.8 MG/DL (8.5-10.1); CARBON DIOXIDE LEVEL 28 MEQ/L (21-32); CHLORIDE LEVEL 103 MEQ/L (98-107); CREATININE FOR GFR 0.74 MG/DL (0.55-1.02); GLOMERULAR FILTRATION RATE > 60.0 (>58); GLUCOSE, FASTING 338 MG/DL (70-105); POTASSIUM SERUM 4.1 MEQ/L (3.5-5.1); SODIUM LEVEL 137 MEQ/L (136-145); TOTAL PROTEIN 6.6 GM/DL (6.4-8.2)
[2017-07-05] MEDS ORDERED: ISOVUE-370 76% 100ML VIAL (Q9967) As Ordered ONE (23:55)
[2017-07-06] MEDS ORDERED: HumaLOG INSULIN (NovoLOG) PER UNIT SC ONE
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
[2017-07-06 02:28] LABS: YEAST LIKE CELL URINE AUTO SMALL
[2017-07-06 02:40] LABS: METHADONE URINE NEGATIVE (NEGATIVE)
[2017-07-06 04:45] VITALS: BP 105/74
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
--- NOTE | 2017-07-06 08:43 | ECGEPIP ---
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
== END 2017-07-06 05:25 | disposition home or self-care (01) ==
LOC: EDBD 21:47 → M ED 21:47
DX: S16.1XXA Strain of muscle, fascia and tendon at neck level, initial encounter (principal); M50.30 Other cervical disc degeneration, unspecified cervical region; V49.40XA Driver injured in collision with unspecified motor vehicles in traffic accident, initial encounter; Y92.410 Unspecified street and highway as the place of occurrence of the external cause; Y93.89 Activity, other specified; Y99.9 Unspecified external cause status
CPT/HCPCS: 70450; 71010; 71260; 72125; 72141; 73110; 74177; 80048; 80076; 80307; 81001; 82150; 82550; 82553; 83605; 83690; 85025; 85610; 85730; 86850; 86900; 86901; 93005; 93041; 94760; 96372; 96374; 99285; G0480; Q9967

== ENCOUNTER 2017-07-24 18:18 | Emergency (ER) | payer OTHER, MEDICARE, MEDICAID ==
[~2017-07-24] VITALS: Ht 170.2 cm; Wt 109.1 kg
[2017-07-24] MEDS ORDERED: CLEO150C PO (21:32)
[2017-07-24] MEDS ORDERED: CYCL10TA PO (21:33)
[2017-07-24] MEDS ORDERED: CLINDAMYCIN 150 MG CAP PO ONE (23:00)
[2017-07-24] MEDS ORDERED: CYCLOBENZAPRINE 10 MG TAB PO ONE (23:00)
[2017-07-24 23:02] VITALS: BP 138/71
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
== END 2017-07-24 23:03 | disposition home or self-care (01) ==
LOC: M ED 18:18
DX: S20.219D Contusion of unspecified front wall of thorax, subsequent encounter (principal); L03.113 Cellulitis of right upper limb; V49.9XXD Car occupant (driver) (passenger) injured in unspecified traffic accident, subsequent encounter; Y92.410 Unspecified street and highway as the place of occurrence of the external cause

== ENCOUNTER 2017-10-23 08:44 | Emergency (ER) | payer MEDICARE, MEDICAID ==
[~2017-10-23] VITALS: Ht 170.2 cm; Wt 109.1 kg
[~2017-10-23 08:44] MED LIST changes: +CLEO150C PO; +CYCL10TA PO
[2017-10-23 08:45] VITALS: BP 123/60
[2017-10-23] MEDS ORDERED: PERC5TAB12 PO (10:18)
[2017-10-23] MEDS ORDERED: PRED20TA PO (10:18)
== END 2017-10-23 10:32 | disposition home or self-care (01) ==
LOC: M ED 08:44
DX: M19.022 Primary osteoarthritis, left elbow (principal); I10 Essential (primary) hypertension; E11.9 Type 2 diabetes mellitus without complications; J45.909 Unspecified asthma, uncomplicated; E78.00 Pure hypercholesterolemia, unspecified; G62.9 Polyneuropathy, unspecified; K58.9 Irritable bowel syndrome, unspecified; F41.9 Anxiety disorder, unspecified; F33.9 Major depressive disorder, recurrent, unspecified; F43.10 Post-traumatic stress disorder, unspecified; F42.9 Obsessive-compulsive disorder, unspecified; Z79.899 Other long term (current) drug therapy; Z79.4 Long term (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 insulin; Z79.01 Long term (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 anticoagulants; Z88.5 Allergy status to narcotic agent; Z91.018 Allergy to other foods; Z91.040 Latex allergy status; Z87.891 Personal history of nicotine dependence

== ENCOUNTER 2017-11-23 12:47 | Emergency (ER) | payer MEDICARE, MEDICAID ==
[2017-11-23 15:38] LABS: HEMATOCRIT 38.1 % (36.0-47.0); MEAN CORPUSCULAR HGB CONC 34.1 g/dl (32.0-36.5); PLATELET COUNT, AUTOMATED 299 10^3/uL (150-450); RED BLOOD COUNT 4.33 10^6/uL (4.00-5.40); RED CELL DISTRIBUTION WIDTH 12.1 % (11.5-14.5); WHITE BLOOD COUNT 8.3 10^3/uL (4.0-10.0)
[2017-11-23 15:44] LABS: CONTROL LINE HCG INT CTR LINE PRESENT; HCG, SERUM QUALITATIVE NEGATIVE (NEGATIVE)
[2017-11-23] MEDS: ONDANSETRON 4MG/2ML VIAL (J2405) IV (15:45)
[2017-11-23] MEDS: PERCOCET 5MG/325MG TAB PO (15:46)
[2017-11-23 15:54] LABS: ALBUMIN 3.4 GM/DL (3.2-5.2); ALBUMIN/GLOBULIN RATIO 0.81 (1.00-1.93); ALKALINE PHOSPHATASE 77 U/L (45-117); ALT/SGPT 21 U/L (12-78); ANION GAP 5 MEQ/L (8-16); AST/SGOT 13 U/L (7-37); BILIRUBIN,DIRECT < 0.1 MG/DL (0.0-0.2); BILIRUBIN,TOTAL 0.3 MG/DL (0.2-1.0); BLOOD UREA NITROGEN 7 MG/DL (7-18); C REACTIVE PROTEIN QUANTITATIV 0.59 MG/DL (0.00-0.30); CALCIUM LEVEL 8.7 MG/DL (8.5-10.1); CARBON DIOXIDE LEVEL 29 MEQ/L (21-32); CHLORIDE LEVEL 104 MEQ/L (98-107); CREATININE FOR GFR 0.73 MG/DL (0.55-1.02); GLOMERULAR FILTRATION RATE > 60.0 (>58); GLUCOSE, FASTING 279 MG/DL (70-105); SODIUM LEVEL 138 MEQ/L (136-145); TOTAL PROTEIN 7.6 GM/DL (6.4-8.2)
[2017-11-23 16:06] LABS: ERYTHROCYTE SEDIMENTATION RATE 24 mm/hr (0-20)
[2017-11-23 16:31] LABS: ESTIMATED AVERAGE GLUCOSE 240 MG/DL (60-110)
[2017-11-23] MEDS ORDERED: ISOVUE-370 76% 100ML VIAL (Q9967) As Ordered (16:47)
[2017-11-23 17:15] LABS: INR 0.99; PROTHROMBIN TIME 13.2 SECONDS (12.4-14.5)
[2017-11-23] MEDS: CEFTRIAXONE SOD 2 GM in APPROPRIATE DILUENT 1 EA IV (17:20)
== END 2017-11-23 19:24 | disposition home or self-care (01) ==
LOC: M ED 12:47
DX: L03.115 Cellulitis of right lower limb (principal); E11.65 Type 2 diabetes mellitus with hyperglycemia; F41.9 Anxiety disorder, unspecified; M86.9 Osteomyelitis, unspecified; Z79.899 Other long term (current) drug therapy; Z79.01 Long term (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 anticoagulants; Z79.4 Long term (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 insulin; Z88.5 Allergy status to narcotic agent; Z91.018 Allergy to other foods; Z91.040 Latex allergy status; Z87.891 Personal history of nicotine dependence
CPT/HCPCS: J2405

== ENCOUNTER → 2017-12-11 | Outpatient (REF) | payer MEDICARE, MEDICAID | LOC: M LAB REF 18:38 | DX: D23.71 Other benign neoplasm of skin of right lower limb, including hip (principal); L98.9 Disorder of the skin and subcutaneous tissue, unspecified (principal); L90.5 Scar conditions and fibrosis of skin | CPT/HCPCS: 88305 ==

== ENCOUNTER → 2017-12-26 | Outpatient (CLI) | payer MEDICARE, MEDICAID | LOC: M RAD 08:54 | DX: Z12.4 Encounter for screening for malignant neoplasm of cervix (principal); Z12.31 Encounter for screening mammogram for malignant neoplasm of breast | CPT/HCPCS: 77067 ==

== ENCOUNTER 2018-01-09 08:46 | Day surgery (SDC) | payer MEDICARE, MEDICAID ==
[2018-01-09] MEDS: NS 1,000 ML IV (09:00)
[2018-01-09] MEDS ORDERED: PROPOFOL 200 MG/20 ML VIAL As Ordered ×3 (10:25→10:58)
== END 2018-01-09 11:05 | disposition home or self-care (01) ==
LOC: M SDC 08:46
DX: Z86.010 Personal history of colon polyps (principal); D12.4 Benign neoplasm of descending colon; D12.3 Benign neoplasm of transverse colon; D12.2 Benign neoplasm of ascending colon; K64.8 Other hemorrhoids; I10 Essential (primary) hypertension; J45.909 Unspecified asthma, uncomplicated; E10.40 Type 1 diabetes mellitus with diabetic neuropathy, unspecified; K58.9 Irritable bowel syndrome, unspecified; K21.9 Gastro-esophageal reflux disease without esophagitis; M62.81 Muscle weakness (generalized); M14.679 Charcot's joint, unspecified ankle and foot; R60.0 Localized edema; M54.9 Dorsalgia, unspecified; I49.9 Cardiac arrhythmia, unspecified; E78.00 Pure hypercholesterolemia, unspecified; R01.1 Cardiac murmur, unspecified; F41.9 Anxiety disorder, unspecified; F31.9 Bipolar disorder, unspecified; F32.9 Major depressive disorder, single episode, unspecified; G43.909 Migraine, unspecified, not intractable, without status migrainosus; R06.83 Snoring; Z88.5 Allergy status to narcotic agent; Z91.018 Allergy to other foods; Z91.040 Latex allergy status; Z79.899 Other long term (current) drug therapy; Z79.01 Long term (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 anticoagulants; Z79.4 Long term (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 insulin; Z86.718 Personal history of other venous thrombosis and embolism; Z92.21 Personal history of antineoplastic chemotherapy; Z87.828 Personal history of other (healed) physical injury and trauma; Z90.710 Acquired absence of both cervix and uterus
CPT/HCPCS: 45385

== ENCOUNTER → 2018-01-20 | Outpatient (REF) | payer MEDICARE, MEDICAID ==
[2018-01-20 12:03] LABS: HEMATOCRIT 38.4 % (36.0-47.0); HEMOGLOBIN 12.9 g/dl (12.0-16.0); MEAN CORPUSCULAR HEMOGLOBIN 29.2 pg (27.0-33.0); MEAN CORPUSCULAR HGB CONC 33.6 g/dl (32.0-36.5); MEAN CORPUSCULAR VOLUME 86.9 fl (80.0-96.0); PLATELET COUNT, AUTOMATED 338 10^3/uL (150-450); RED BLOOD COUNT 4.42 10^6/uL (4.00-5.40); RED CELL DISTRIBUTION WIDTH 12.7 % (11.5-14.5); WHITE BLOOD COUNT 9.6 10^3/uL (4.0-10.0)
[2018-01-20 12:31] LABS: ALBUMIN 3.5 GM/DL (3.2-5.2); ALBUMIN/GLOBULIN RATIO 0.95 (1.00-1.93); ALKALINE PHOSPHATASE 74 U/L (45-117); ALT/SGPT 22 U/L (12-78); ANION GAP 10 MEQ/L (8-16); AST/SGOT 12 U/L (7-37); BILIRUBIN,TOTAL 0.3 MG/DL (0.2-1.0); BLOOD UREA NITROGEN 13 MG/DL (7-18); CALCIUM LEVEL 9.1 MG/DL (8.5-10.1); CARBON DIOXIDE LEVEL 25 MEQ/L (21-32); CHLORIDE LEVEL 103 MEQ/L (98-107); CHOLESTEROL LEVEL 218 MG/DL (<200); CHOLESTEROL RISK RATIO 3.694 (<5); CREATININE FOR GFR 0.73 MG/DL (0.55-1.30); GLOMERULAR FILTRATION RATE > 60.0 (>58); GLUCOSE, FASTING 242 MG/DL (70-100); HDL CHOLESTEROL 59 MG/DL (>40); LDL CHOLESTEROL 139.8 MG/DL (<100); NON-HDL-C 159 MG/DL; POTASSIUM SERUM 4.3 MEQ/L (3.5-5.1); SODIUM LEVEL 138 MEQ/L (136-145); TOTAL PROTEIN 7.2 GM/DL (6.4-8.2); TRIGLYCERIDES LEVEL 96 MG/DL (<150)
[2018-01-20 12:44] LABS: TOTAL 25(OH) VITAMIN D 32.5 NG/ML (30.0-100.0)
[2018-01-20 14:05] LABS: ESTIMATED AVERAGE GLUCOSE 237 MG/DL (60-110); HEMOGLOBIN A1c 9.9 %
== END ==
LOC: M SFHCPLAZ 09:02
DX: E78.5 Hyperlipidemia, unspecified (principal); Z86.010 Personal history of colon polyps; E11.51 Type 2 diabetes mellitus with diabetic peripheral angiopathy without gangrene; I10 Essential (primary) hypertension; E55.9 Vitamin D deficiency, unspecified
CPT/HCPCS: 83735

== ENCOUNTER 2018-02-04 14:47 | Emergency (ER) | payer MEDICARE, MEDICAID ==
[2018-02-04 15:51] LABS: BASO # 0.1 10^3/uL (0.0-0.2); EOS # 0.2 10^3/uL (0.0-0.50); EOS % 1.8 % (0.0-3.0); HEMATOCRIT 40.5 % (36.0-47.0); HEMOGLOBIN 13.7 g/dl (12.0-16.0); IMMATURE GRANULOCYTE % 0.6 % (0-3.0); LYMPH # 4.2 10^3/uL (1.5-4.5); LYMPH % 40.3 % (24.0-44.0); MEAN CORPUSCULAR HEMOGLOBIN 29.6 pg (27.0-33.0); MEAN CORPUSCULAR HGB CONC 33.8 g/dl (32.0-36.5); MEAN CORPUSCULAR VOLUME 87.5 fl (80.0-96.0); MONO # 0.4 10^3/uL (0.0-0.8); MONO % 3.9 % (0.0-5.0); NEUTROPHILS # 5.4 10^3/uL (1.8-7.7); NEUTROPHILS % 52.4 % (36.0-66.0); PLATELET COUNT, AUTOMATED 322 10^3/uL (150-450); RED BLOOD COUNT 4.63 10^6/uL (4.00-5.40); RED CELL DISTRIBUTION WIDTH 12.5 % (11.5-14.5); WHITE BLOOD COUNT 10.3 10^3/uL (4.0-10.0)
[2018-02-04] MEDS: ASPIRIN 81 MG CHEW TABLET PO (16:00)
[2018-02-04] MEDS: ONDANSETRON 4MG/2ML VIAL (J2405) IV (16:03)
[2018-02-04 16:17] LABS: ALBUMIN 3.7 GM/DL (3.2-5.2); ALKALINE PHOSPHATASE 81 U/L (45-117); ALT/SGPT 24 U/L (12-78); ANION GAP 8 MEQ/L (8-16); AST/SGOT 10 U/L (7-37); BILIRUBIN,DIRECT < 0.1 MG/DL (0.0-0.2); BILIRUBIN,TOTAL 0.3 MG/DL (0.2-1.0); BLOOD UREA NITROGEN 18 MG/DL (7-18); CALCIUM LEVEL 8.9 MG/DL (8.5-10.1); CARBON DIOXIDE LEVEL 25 MEQ/L (21-32); CHLORIDE LEVEL 103 MEQ/L (98-107); CK-MB VALUE MASS < 1.0 NG/ML (<3.6); CPK CREATINE PHOSPHOKINASE 36 U/L (26-192); CREATININE FOR GFR 0.87 MG/DL (0.55-1.30); GLOMERULAR FILTRATION RATE > 60.0 (>58); GLUCOSE, FASTING 211 MG/DL (70-100); LIPASE 325 U/L (73-393); MB/CK RELATIVE INDEX 2.77 (< OR =4); NT-PRO BNP 28 PG/ML (<125); SODIUM LEVEL 136 MEQ/L (136-145); TOTAL PROTEIN 7.8 GM/DL (6.4-8.2); TROPONIN I < 0.02 NG/ML (< 0.10)
[2018-02-04] MEDS ORDERED: ISOVUE-370 76% 100ML VIAL (Q9967) As Ordered (16:23)
[2018-02-04 19:25] LABS: CPK CREATINE PHOSPHOKINASE 38 U/L (26-192); TROPONIN I < 0.02 NG/ML (< 0.10)
[2018-02-04] MEDS: ACETAMINOPHEN TAB 650MG DOSE (2X325MG) PO (19:25)
[2018-02-04 19:26] LABS: CK-MB VALUE MASS < 1.0 NG/ML (<3.6); MB/CK RELATIVE INDEX 2.63 (< OR =4)
== END 2018-02-04 20:05 | disposition home or self-care (01) ==
LOC: M ED 14:47
DX: R07.9 Chest pain, unspecified (principal); R00.0 Tachycardia, unspecified; R06.02 Shortness of breath; I51.9 Heart disease, unspecified; E78.5 Hyperlipidemia, unspecified; J45.909 Unspecified asthma, uncomplicated; R51 Headache; Z87.442 Personal history of urinary calculi; F31.9 Bipolar disorder, unspecified; F43.10 Post-traumatic stress disorder, unspecified; Z87.891 Personal history of nicotine dependence; Z79.4 Long term (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 insulin; Z79.899 Other long term (current) drug therapy; Z88.8 Allergy status to other drugs, medicaments and biological substances; Z91.018 Allergy to other foods; Z91.040 Latex allergy status
CPT/HCPCS: J2405

== ENCOUNTER 2018-04-01 11:36 | Emergency (ER) | payer MEDICARE, MEDICAID ==
[2018-04-01] MEDS: NORCO, ANEXSIA 5/325MG TABLET (HYDROcodone/ACETAMINOPHEN) PO (14:43)
== END 2018-04-01 15:10 | disposition home or self-care (01) ==
LOC: M ED 11:36
DX: S83.91XA Sprain of unspecified site of right knee, initial encounter (principal); S93.401A Sprain of unspecified ligament of right ankle, initial encounter; W54.1XXA Struck by dog, initial encounter; Y92.009 Unspecified place in unspecified non-institutional (private) residence as the place of occurrence of the external cause; E11.9 Type 2 diabetes mellitus without complications; J45.909 Unspecified asthma, uncomplicated; I10 Essential (primary) hypertension; E78.00 Pure hypercholesterolemia, unspecified; K58.9 Irritable bowel syndrome, unspecified; F41.9 Anxiety disorder, unspecified; F31.9 Bipolar disorder, unspecified; F43.10 Post-traumatic stress disorder, unspecified; F42.9 Obsessive-compulsive disorder, unspecified; Z79.899 Other long term (current) drug therapy; Z79.4 Long term (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 insulin; Z88.5 Allergy status to narcotic agent; Z91.040 Latex allergy status; Z91.018 Allergy to other foods; Z98.890 Other specified postprocedural states; Z86.69 Personal history of other diseases of the nervous system and sense organs; Z86.718 Personal history of other venous thrombosis and embolism
CPT/HCPCS: 73564

== ENCOUNTER → 2018-06-02 | Outpatient (CLI) | payer MEDICARE, MEDICAID ==
[2018-06-02 09:58] LABS: ANION GAP 9 MEQ/L (8-16); BLOOD UREA NITROGEN 15 MG/DL (7-18); CARBON DIOXIDE LEVEL 25 MEQ/L (21-32); CHLORIDE LEVEL 105 MEQ/L (98-107); CREATININE FOR GFR 0.91 MG/DL (0.55-1.30); GLOMERULAR FILTRATION RATE > 60.0 (>58); GLUCOSE, FASTING 255 MG/DL (70-100); POTASSIUM SERUM 4.1 MEQ/L (3.5-5.1); SODIUM LEVEL 139 MEQ/L (136-145)
== END ==
LOC: M LAB 08:58
DX: E11.621 Type 2 diabetes mellitus with foot ulcer (principal); L97.509 Non-pressure chronic ulcer of other part of unspecified foot with unspecified severity
CPT/HCPCS: 80048

== ENCOUNTER 2018-07-05 12:43 | Emergency (ER) | payer MEDICARE, MEDICAID | END 2018-07-05 13:40 | disposition home or self-care (01) | LOC: M ED 12:43 | DX: J32.9 Chronic sinusitis, unspecified (principal); E11.9 Type 2 diabetes mellitus without complications; I10 Essential (primary) hypertension; J45.909 Unspecified asthma, uncomplicated; G62.9 Polyneuropathy, unspecified; E78.00 Pure hypercholesterolemia, unspecified; K58.9 Irritable bowel syndrome, unspecified; F31.9 Bipolar disorder, unspecified; F43.10 Post-traumatic stress disorder, unspecified; F41.9 Anxiety disorder, unspecified; F42.9 Obsessive-compulsive disorder, unspecified; Z79.01 Long term (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 anticoagulants; Z87.891 Personal history of nicotine dependence; Z88.5 Allergy status to narcotic agent; Z91.040 Latex allergy status; Z91.018 Allergy to other foods; Z79.4 Long term (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 insulin; Z79.899 Other long term (current) drug therapy | CPT/HCPCS: 99282 ==

== ENCOUNTER 2018-08-09 08:56 | Inpatient (IN) | payer MEDICARE, MEDICAID, OTHER ==
[2018-08-09] MEDS: NS 1,000 ML IV ×3 (09:15→18:00)
[2018-08-09 09:17] LABS: BEDSIDE GLUCOSE 339 MG/DL (70-105)
[2018-08-09 09:44] LABS: BASO # 0.1 10^3/uL (0.0-0.2); BASO % 0.4 % (0.0-1.0); HEMATOCRIT 38.8 % (36.0-47.0); HEMOGLOBIN 13.1 g/dl (12.0-15.5); LYMPH # 1.8 10^3/uL (1.5-4.5); MEAN CORPUSCULAR HEMOGLOBIN 28.4 pg (27.0-33.0); MEAN CORPUSCULAR HGB CONC 33.8 g/dl (32.0-36.5); MONO # 1.1 10^3/uL (0.0-0.8); MONO % 5.8 % (0.0-5.0); NEUTROPHILS # 16.4 10^3/uL (1.8-7.7); NEUTROPHILS % 83.8 % (36.0-66.0); PLATELET COUNT, AUTOMATED 275 10^3/uL (150-450); RED BLOOD COUNT 4.62 10^6/uL (4.00-5.40); RED CELL DISTRIBUTION WIDTH 12.9 % (11.5-14.5); WHITE BLOOD COUNT 19.6 10^3/uL (4.0-10.0)
[2018-08-09 09:48] LABS: VENOUS BASE EXCESS -4.3 (-2.0-2.0); VENOUS HCO3 17.3 MEQ/L (23.0-27.0); VENOUS O2 SATURATION 99.1 % (60.0-80.0); VENOUS PARTIAL PRESSURE CO2 23.6 mmHg (38.0-50.0); VENOUS PH 7.482 UNITS (7.330-7.430)
[2018-08-09] MEDS: ACETAMINOPHEN 325 MG TAB PO (09:49)
[2018-08-09] MEDS: PIPERACILLIN/TAZOBACTAM SOD 4.5 GM in D5W MINI-BAG PLUS 50 ML IV (09:49)
[2018-08-09 10:02] LABS: VENOUS BASE EXCESS -2.9 (-2.0-2.0); VENOUS HCO3 19.4 MEQ/L (23.0-27.0); VENOUS PARTIAL PRESSURE CO2 27.7 mmHg (38.0-50.0); VENOUS PARTIAL PRESSURE O2 130.7 mmHg (30.0-50.0); VENOUS PH 7.463 UNITS (7.330-7.430); VENOUS STANDARD HCO3 22.1 MEQ/L; VENOUS TOTAL CO2 20.2 MEQ/L (24.0-28.0)
[2018-08-09 10:03] LABS: CONTROL LINE HCG INT CTR LINE PRESENT; HCG, SERUM QUALITATIVE NEGATIVE (NEGATIVE)
[2018-08-09 10:09] LABS: ALBUMIN 3.2 GM/DL (3.2-5.2); ALBUMIN/GLOBULIN RATIO 0.68 (1.00-1.93); ALKALINE PHOSPHATASE 74 U/L (45-117); ALT/SGPT 22 U/L (12-78); ANION GAP 14 MEQ/L (8-16); AST/SGOT 21 U/L (7-37); BILIRUBIN,DIRECT 0.3 MG/DL (0.0-0.2); BILIRUBIN,TOTAL 0.9 MG/DL (0.2-1.0); BLOOD UREA NITROGEN 12 MG/DL (7-18); CARBON DIOXIDE LEVEL 19 MEQ/L (21-32); CHLORIDE LEVEL 97 MEQ/L (98-107); CK-MB VALUE MASS < 1.0 NG/ML (<3.6); CPK CREATINE PHOSPHOKINASE 70 U/L (26-192); CREATININE FOR GFR 0.98 MG/DL (0.55-1.30); GLOMERULAR FILTRATION RATE > 60.0 (>58); GLUCOSE, FASTING 329 MG/DL (70-100); LIPASE 106 U/L (73-393); MAGNESIUM LEVEL 1.7 MG/DL (1.8-2.4); MB/CK RELATIVE INDEX 1.43 (< OR =4); POTASSIUM SERUM 4.1 MEQ/L (3.5-5.1); SODIUM LEVEL 130 MEQ/L (136-145); TOTAL PROTEIN 7.9 GM/DL (6.4-8.2); TROPONIN I < 0.02 NG/ML (< 0.10)
[2018-08-09 10:22] LABS: ACETONE/KETONE 10.24 MG/DL (<2.81)
[2018-08-09 10:23] LABS: OSMOLALITY SERUM 283 MOSM/KG (275-295)
[2018-08-09 10:23] LABS: LACTIC ACID SEPSIS PROTOCOL 1.7 MMOL/L (0.4-2.0)
[2018-08-09 10:30] LABS: ESTIMATED AVERAGE GLUCOSE 192 MG/DL (60-110); HEMOGLOBIN A1c 8.3 %
[2018-08-09] MEDS: HumuLIN R (REGULAR) INSULIN (NovoLIN R) **100U/ML** PER UNIT IV (10:41)
[2018-08-09] MEDS: ONDANSETRON 4MG/2ML VIAL (J2405) IV (10:41)
[2018-08-09 10:47] LABS: KETONE, URINE AUTO RFX 1+ mg/dL (NEGATIVE); LEUKOCYTE ESTERASE UR AUTO RFX NEGATIVE (NEGATIVE); MUCUS, URINE RFX SMALL (NEGATIVE); NITRITE, URINE AUTO RFX NEGATIVE (NEGATIVE); RBC, URINE AUTO RFX 1 /HPF (0-3); SPECIFIC GRAVITY UR AUTO RFX 1.031 (1.002-1.035); SQUAM EPITHELIAL CELL UR AURFX 1 /HPF (0-6); WBC, URINE AUTO RFX 3 /HPF (0-3)
[2018-08-09] MEDS ORDERED: GLUCAGON FOR INJ 1 MG VIAL (J1610) SC (11:15)
[2018-08-09] MEDS ORDERED: GLUCOSE 4 GM CHEW TABLET PO (11:15)
[2018-08-09] MEDS ORDERED: DEXTROSE 50% 50 ML SYRINGE IV (11:15)
[2018-08-09 11:57] LABS: BEDSIDE GLUCOSE 292 MG/DL (70-105)
[2018-08-09] MEDS: PANTOPRAZOLE 40MG INJ (PROTONIX) (C9113) IV (12:49)
[2018-08-09] MEDS: MAG SULF 1GM/100ML (MAG RUN) 1 GM in APPROPRIATE DILUENT 1 EA IV (12:49)
[2018-08-09] MEDS: CEFTAROLINE FOSAMIL 600 MG in D5W MINI-BAG PLUS 50 ML IV (12:49)
[2018-08-09] MEDS: HumaLOG INSULIN (NovoLOG) PER UNIT SC ×3 (12:50→20:46)
[2018-08-09] MEDS: ENOXAPARIN 40 MG/0.4 ML SYRINGE (J1650) SC (12:50)
[2018-08-09] MEDS: ACETAMINOPHEN TAB 650MG DOSE (2X325MG) PO ×2 (14:22→20:47)
[2018-08-09 15:24] LABS: ANION GAP 10 MEQ/L (8-16); BLOOD UREA NITROGEN 14 MG/DL (7-18); CALCIUM LEVEL 8.4 MG/DL (8.5-10.1); CARBON DIOXIDE LEVEL 21 MEQ/L (21-32); CHLORIDE LEVEL 101 MEQ/L (98-107); CREATININE FOR GFR 1.07 MG/DL (0.55-1.30); GLUCOSE, FASTING 326 MG/DL (70-100); POTASSIUM SERUM 3.6 MEQ/L (3.5-5.1); SODIUM LEVEL 132 MEQ/L (136-145)
[2018-08-09] MEDS: busPIRone 10 MG TAB PO ×2 (15:56→20:48)
[2018-08-09] MEDS: SODIUM PHOSPHATE INJ 30 MMOL in D5W 500 ML IV (15:56)
[2018-08-09] MEDS: LOSARTAN 50 MG TAB PO (15:57)
[2018-08-09] MEDS: traMADol 50 MG TAB PO (15:57)
[2018-08-09] MEDS: FOLIC ACID 1 MG TAB PO (15:58)
[2018-08-09] MEDS: MULTIVITAMINS/MINERALS THERAP 1 TAB PO (15:58)
[2018-08-09 16:08] LABS: BEDSIDE GLUCOSE 321 MG/DL (70-105)
[2018-08-09 17:58] LABS: BEDSIDE GLUCOSE 319 MG/DL (70-105)
[2018-08-09 20:26] LABS: BEDSIDE GLUCOSE 388 MG/DL (70-105)
[2018-08-09] MEDS: LEVEMIR (INSULIN DETEMIR) 1 UNITS/0.01ML SC (20:45)
[2018-08-09] MEDS: METAXALONE 800 MG TABLET PO (20:47)
[2018-08-09] MEDS: ROSUVASTATIN 10 MG TAB (CRESTOR) PO (20:47)
[2018-08-09] MEDS: LACTOBACILLUS ACIDOPHILUS CAP (BACID) PO (20:48)
[2018-08-09] MEDS: APIXABAN 5 MG TAB (ELIQUIS) PO (20:48)
[2018-08-09] MEDS: zolPIDEM TARTRATE 5 MG TAB PO (23:13)
[2018-08-10] MEDS: CEFTAROLINE FOSAMIL 600 MG in D5W MINI-BAG PLUS 50 ML IV ×2 (01:11→13:10)
[2018-08-10] MEDS: ACETAMINOPHEN TAB 650MG DOSE (2X325MG) PO (01:12)
[2018-08-10] MEDS: METAXALONE 800 MG TABLET PO ×3 (03:04→21:45)
[2018-08-10] MEDS: traMADol 50 MG TAB PO ×2 (03:05→15:40)
[2018-08-10] MEDS: NS 1,000 ML IV (03:06)
[2018-08-10 05:26] LABS: BASO % 0.4 % (0.0-1.0); EOS # 0.1 10^3/uL (0.0-0.50); EOS % 0.7 % (0.0-3.0); HEMATOCRIT 32.1 % (36.0-47.0); IMMATURE GRANULOCYTE % 0.7 % (0-3.0); LYMPH # 1.9 10^3/uL (1.5-4.5); LYMPH % 16.6 % (24.0-44.0); MEAN CORPUSCULAR HEMOGLOBIN 28.2 pg (27.0-33.0); MEAN CORPUSCULAR HGB CONC 33.3 g/dl (32.0-36.5); MEAN CORPUSCULAR VOLUME 84.7 fl (80.0-96.0); MONO # 0.9 10^3/uL (0.0-0.8); MONO % 8.2 % (0.0-5.0); NEUTROPHILS # 8.2 10^3/uL (1.8-7.7); NEUTROPHILS % 73.4 % (36.0-66.0); PLATELET COUNT, AUTOMATED 213 10^3/uL (150-450); RED BLOOD COUNT 3.79 10^6/uL (4.00-5.40); RED CELL DISTRIBUTION WIDTH 13.1 % (11.5-14.5); WHITE BLOOD COUNT 11.1 10^3/uL (4.0-10.0)
[2018-08-10 05:52] LABS: HEMOGLOBIN 10.7 g/dl (12.0-15.5)
[2018-08-10 06:05] LABS: ALBUMIN 2.4 GM/DL (3.2-5.2); ALBUMIN/GLOBULIN RATIO 0.51 (1.00-1.93); ALKALINE PHOSPHATASE 62 U/L (45-117); ALT/SGPT 15 U/L (12-78); ANION GAP 8 MEQ/L (8-16); AST/SGOT 14 U/L (7-37); BILIRUBIN,TOTAL 0.3 MG/DL (0.2-1.0); BLOOD UREA NITROGEN 12 MG/DL (7-18); CALCIUM LEVEL 8.4 MG/DL (8.5-10.1); CARBON DIOXIDE LEVEL 23 MEQ/L (21-32); CHLORIDE LEVEL 105 MEQ/L (98-107); CREATININE FOR GFR 0.78 MG/DL (0.55-1.30); GLOMERULAR FILTRATION RATE > 60.0 (>58); GLUCOSE, FASTING 253 MG/DL (70-100); MAGNESIUM LEVEL 2.2 MG/DL (1.8-2.4); POTASSIUM SERUM 3.5 MEQ/L (3.5-5.1); SODIUM LEVEL 136 MEQ/L (136-145); TOTAL PROTEIN 7.1 GM/DL (6.4-8.2)
[2018-08-10] MEDS ORDERED: SLF 3 ML SYR IV (08:15)
[2018-08-10] MEDS: PANTOPRAZOLE 40MG INJ (PROTONIX) (C9113) IV (08:42)
[2018-08-10] MEDS: APIXABAN 5 MG TAB (ELIQUIS) PO ×2 (08:43→21:39)
[2018-08-10] MEDS: MULTIVITAMINS/MINERALS THERAP 1 TAB PO (08:43)
[2018-08-10] MEDS: HumaLOG INSULIN (NovoLOG) PER UNIT SC ×4 (08:43→20:16)
[2018-08-10] MEDS: LOSARTAN 50 MG TAB PO (08:43)
[2018-08-10] MEDS: FOLIC ACID 1 MG TAB PO (08:43)
[2018-08-10] MEDS: busPIRone 10 MG TAB PO ×3 (08:44→21:39)
[2018-08-10] MEDS: INFLUENZA QUADRIVALENT PF VACCINE 0.5ML SYRINGE (90686) IM (08:45)
[2018-08-10] MEDS: LACTOBACILLUS ACIDOPHILUS CAP (BACID) PO ×2 (09:00→21:39)
[2018-08-10] MEDS: PERCOCET 5MG/325MG TAB PO ×2 (11:10→18:03)
[2018-08-10 13:06] LABS: BEDSIDE GLUCOSE 166 MG/DL (70-105)
[2018-08-10] MEDS: SLF 3 ML SYR IV ×2 (13:15→21:40)
[2018-08-10 17:04] LABS: BEDSIDE GLUCOSE 286 MG/DL (70-105)
[2018-08-10 20:14] LABS: BEDSIDE GLUCOSE 207 MG/DL (70-105)
[2018-08-10] MEDS: ROSUVASTATIN 10 MG TAB (CRESTOR) PO (21:39)
[2018-08-10] MEDS: LEVEMIR (INSULIN DETEMIR) 1 UNITS/0.01ML SC (21:39)
[2018-08-10] MEDS: zolPIDEM TARTRATE 5 MG TAB PO (21:45)
[2018-08-11] MEDS: PERCOCET 5MG/325MG TAB PO ×3 (01:06→20:59)
[2018-08-11] MEDS: CEFTAROLINE FOSAMIL 600 MG in D5W MINI-BAG PLUS 50 ML IV ×2 (01:06→12:48)
[2018-08-11] MEDS: SLF 3 ML SYR IV ×3 (05:39→21:01)
[2018-08-11] MEDS: traMADol 50 MG TAB PO (05:39)
[2018-08-11 06:46] LABS: BASO # 0.1 10^3/uL (0.0-0.2); BASO % 0.5 % (0.0-1.0); EOS # 0.2 10^3/uL (0.0-0.50); EOS % 2.2 % (0.0-3.0); HEMATOCRIT 31.3 % (36.0-47.0); HEMOGLOBIN 10.3 g/dl (12.0-15.5); IMMATURE GRANULOCYTE % 0.8 % (0-3.0); LYMPH # 2.5 10^3/uL (1.5-4.5); LYMPH % 25.6 % (24.0-44.0); MEAN CORPUSCULAR HEMOGLOBIN 28.2 pg (27.0-33.0); MEAN CORPUSCULAR HGB CONC 32.9 g/dl (32.0-36.5); MEAN CORPUSCULAR VOLUME 85.8 fl (80.0-96.0); MONO # 0.7 10^3/uL (0.0-0.8); MONO % 7.1 % (0.0-5.0); NEUTROPHILS # 6.3 10^3/uL (1.8-7.7); NEUTROPHILS % 63.8 % (36.0-66.0); PLATELET COUNT, AUTOMATED 275 10^3/uL (150-450); RED BLOOD COUNT 3.65 10^6/uL (4.00-5.40); RED CELL DISTRIBUTION WIDTH 13.2 % (11.5-14.5); WHITE BLOOD COUNT 9.9 10^3/uL (4.0-10.0)
[2018-08-11 07:07] LABS: ALBUMIN 2.4 GM/DL (3.2-5.2); ALBUMIN/GLOBULIN RATIO 0.51 (1.00-1.93); ALKALINE PHOSPHATASE 93 U/L (45-117); ALT/SGPT 36 U/L (12-78); ANION GAP 7 MEQ/L (8-16); AST/SGOT 39 U/L (7-37); BILIRUBIN,TOTAL 0.2 MG/DL (0.2-1.0); BLOOD UREA NITROGEN 14 MG/DL (7-18); CALCIUM LEVEL 8.7 MG/DL (8.5-10.1); CARBON DIOXIDE LEVEL 25 MEQ/L (21-32); CHLORIDE LEVEL 105 MEQ/L (98-107); CREATININE FOR GFR 0.77 MG/DL (0.55-1.30); GLOMERULAR FILTRATION RATE > 60.0 (>58); GLUCOSE, FASTING 217 MG/DL (70-100); MAGNESIUM LEVEL 2.2 MG/DL (1.8-2.4); POTASSIUM SERUM 3.5 MEQ/L (3.5-5.1); SODIUM LEVEL 137 MEQ/L (136-145); TOTAL PROTEIN 7.1 GM/DL (6.4-8.2)
[2018-08-11] MEDS: busPIRone 10 MG TAB PO ×3 (07:58→21:00)
[2018-08-11] MEDS: MULTIVITAMINS/MINERALS THERAP 1 TAB PO (07:58)
[2018-08-11] MEDS: LACTOBACILLUS ACIDOPHILUS CAP (BACID) PO ×2 (07:59→21:00)
[2018-08-11] MEDS: HumaLOG INSULIN (NovoLOG) PER UNIT SC ×4 (07:59→21:00)
[2018-08-11] MEDS: FOLIC ACID 1 MG TAB PO (07:59)
[2018-08-11] MEDS: APIXABAN 5 MG TAB (ELIQUIS) PO ×2 (07:59→21:01)
[2018-08-11] MEDS: LOSARTAN 50 MG TAB PO (07:59)
[2018-08-11 11:28] LABS: BEDSIDE GLUCOSE 205 MG/DL (70-105)
[2018-08-11] MEDS: PANTOPRAZOLE 40MG TAB (PROTONIX) PO (11:36)
[2018-08-11] MEDS: METAXALONE 800 MG TABLET PO ×2 (15:55→20:59)
[2018-08-11 16:31] LABS: BEDSIDE GLUCOSE 279 MG/DL (70-105)
[2018-08-11] MEDS: SENOKOT S TAB PO (17:26)
[2018-08-11] MEDS: NYSTATIN 100,000 UNITS/GM TOPICAL PWD 15 GM TOP (17:27)
[2018-08-11 20:05] LABS: BEDSIDE GLUCOSE 287 MG/DL (70-105)
[2018-08-11] MEDS: LEVEMIR (INSULIN DETEMIR) 1 UNITS/0.01ML SC (20:59)
[2018-08-11] MEDS: zolPIDEM TARTRATE 5 MG TAB PO (20:59)
[2018-08-11] MEDS: ROSUVASTATIN 10 MG TAB (CRESTOR) PO (21:00)
[2018-08-12] MEDS: traMADol 50 MG TAB PO ×2 (00:14→17:01)
[2018-08-12] MEDS: CEFTAROLINE FOSAMIL 600 MG in D5W MINI-BAG PLUS 50 ML IV (00:14)
[2018-08-12] MEDS: PERCOCET 5MG/325MG TAB PO ×3 (02:55→20:23)
[2018-08-12] MEDS: CYCLOBENZAPRINE 5MG TABLET PO (03:01)
[2018-08-12] MEDS: SLF 3 ML SYR IV ×3 (05:42→20:22)
[2018-08-12 06:42] LABS: BASO # 0.1 10^3/uL (0.0-0.2); BASO % 0.5 % (0.0-1.0); EOS # 0.3 10^3/uL (0.0-0.50); EOS % 2.9 % (0.0-3.0); HEMATOCRIT 30.4 % (36.0-47.0); HEMOGLOBIN 10.3 g/dl (12.0-15.5); IMMATURE GRANULOCYTE % 1.4 % (0-3.0); LYMPH # 2.4 10^3/uL (1.5-4.5); LYMPH % 24.8 % (24.0-44.0); MEAN CORPUSCULAR HEMOGLOBIN 28.9 pg (27.0-33.0); MEAN CORPUSCULAR HGB CONC 33.9 g/dl (32.0-36.5); MEAN CORPUSCULAR VOLUME 85.2 fl (80.0-96.0); MONO # 0.6 10^3/uL (0.0-0.8); MONO % 6.4 % (0.0-5.0); NEUTROPHILS # 6.2 10^3/uL (1.8-7.7); PLATELET COUNT, AUTOMATED 312 10^3/uL (150-450); RED BLOOD COUNT 3.57 10^6/uL (4.00-5.40); RED CELL DISTRIBUTION WIDTH 13.2 % (11.5-14.5); WHITE BLOOD COUNT 9.7 10^3/uL (4.0-10.0)
[2018-08-12 07:27] LABS: ALBUMIN 2.5 GM/DL (3.2-5.2); ALBUMIN/GLOBULIN RATIO 0.51 (1.00-1.93); ALKALINE PHOSPHATASE 200 U/L (45-117); ALT/SGPT 120 U/L (12-78); ANION GAP 6 MEQ/L (8-16); AST/SGOT 218 U/L (7-37); BILIRUBIN,TOTAL 0.6 MG/DL (0.2-1.0); BLOOD UREA NITROGEN 12 MG/DL (7-18); CALCIUM LEVEL 8.6 MG/DL (8.5-10.1); CARBON DIOXIDE LEVEL 27 MEQ/L (21-32); CHLORIDE LEVEL 103 MEQ/L (98-107); CREATININE FOR GFR 0.76 MG/DL (0.55-1.30); GLOMERULAR FILTRATION RATE > 60.0 (>58); GLUCOSE, FASTING 185 MG/DL (70-100); POTASSIUM SERUM 3.5 MEQ/L (3.5-5.1); SODIUM LEVEL 136 MEQ/L (136-145); TOTAL PROTEIN 7.4 GM/DL (6.4-8.2)
[2018-08-12] MEDS: FOLIC ACID 1 MG TAB PO (10:03)
[2018-08-12] MEDS: PANTOPRAZOLE 40MG TAB (PROTONIX) PO (10:03)
[2018-08-12] MEDS: APIXABAN 5 MG TAB (ELIQUIS) PO ×2 (10:03→20:21)
[2018-08-12] MEDS: SENOKOT S TAB PO ×2 (10:04→20:21)
[2018-08-12] MEDS: LACTOBACILLUS ACIDOPHILUS CAP (BACID) PO ×2 (10:04→20:21)
[2018-08-12] MEDS: MULTIVITAMINS/MINERALS THERAP 1 TAB PO (10:04)
[2018-08-12] MEDS: busPIRone 10 MG TAB PO ×3 (10:04→20:21)
[2018-08-12] MEDS: VANCOMYCIN HCL 1,000 MG, VIAL MATE ADAPTER 1 EACH in D5W 250 ML IV ×2 (10:05→17:01)
[2018-08-12] MEDS: LOSARTAN 50 MG TAB PO (10:05)
[2018-08-12] MEDS: HumaLOG INSULIN (NovoLOG) PER UNIT SC ×4 (10:06→20:22)
[2018-08-12 11:58] LABS: BEDSIDE GLUCOSE 193 MG/DL (70-105)
[2018-08-12 12:53] LABS: HEPATITIS B SURFACE ANTIGEN NEGATIVE (NEGATIVE)
[2018-08-12 13:20] LABS: HEPATITIS B CORE ANTIBODY IGM NEGATIVE (NEGATIVE); HEPATITIS C VIRUS ABY INDEX 0.1 INDEX (<0.8)
[2018-08-12 13:22] LABS: HEPATITIS A ANTIBODY IGM NEGATIVE (NEGATIVE)
[2018-08-12 17:00] LABS: BEDSIDE GLUCOSE 149 MG/DL (70-105)
[2018-08-12] MEDS: ROSUVASTATIN 10 MG TAB (CRESTOR) PO (20:21)
[2018-08-12] MEDS: LEVEMIR (INSULIN DETEMIR) 1 UNITS/0.01ML SC (20:22)
[2018-08-12 20:38] LABS: BEDSIDE GLUCOSE 269 MG/DL (70-105)
[2018-08-12] MEDS: zolPIDEM TARTRATE 5 MG TAB PO (23:38)
[2018-08-13] MEDS: VANCOMYCIN HCL 1,000 MG, VIAL MATE ADAPTER 1 EACH in D5W 250 ML IV ×3 (00:55→17:07)
[2018-08-13] MEDS: SLF 3 ML SYR IV ×3 (05:19→21:26)
[2018-08-13] MEDS: PERCOCET 5MG/325MG TAB PO ×3 (05:37→21:25)
[2018-08-13 06:43] LABS: HEMATOCRIT 30.5 % (36.0-47.0); LYMPH % 21.7 % (24.0-44.0); MEAN CORPUSCULAR HEMOGLOBIN 28.3 pg (27.0-33.0); MEAN CORPUSCULAR HGB CONC 32.8 g/dl (32.0-36.5); MEAN CORPUSCULAR VOLUME 86.4 fl (80.0-96.0); MONO % 5.6 % (0.0-5.0); PLATELET COUNT, AUTOMATED 346 10^3/uL (150-450); RED BLOOD COUNT 3.53 10^6/uL (4.00-5.40); RED CELL DISTRIBUTION WIDTH 13.3 % (11.5-14.5)
[2018-08-13 07:05] LABS: ALBUMIN 2.3 GM/DL (3.2-5.2); ALBUMIN/GLOBULIN RATIO 0.47 (1.00-1.93); ALKALINE PHOSPHATASE 243 U/L (45-117); ALT/SGPT 194 U/L (12-78); ANION GAP 7 MEQ/L (8-16); AST/SGOT 152 U/L (7-37); BILIRUBIN,TOTAL 0.4 MG/DL (0.2-1.0); BLOOD UREA NITROGEN 8 MG/DL (7-18); CALCIUM LEVEL 8.6 MG/DL (8.5-10.1); CARBON DIOXIDE LEVEL 29 MEQ/L (21-32); CHLORIDE LEVEL 101 MEQ/L (98-107); CREATININE FOR GFR 0.71 MG/DL (0.55-1.30); GLOMERULAR FILTRATION RATE > 60.0 (>58); GLUCOSE, FASTING 172 MG/DL (70-100); MAGNESIUM LEVEL 2.1 MG/DL (1.8-2.4); POTASSIUM SERUM 3.7 MEQ/L (3.5-5.1); SODIUM LEVEL 137 MEQ/L (136-145); TOTAL PROTEIN 7.2 GM/DL (6.4-8.2)
[2018-08-13] MEDS: MULTIVITAMINS/MINERALS THERAP 1 TAB PO (08:15)
[2018-08-13] MEDS: PANTOPRAZOLE 40MG TAB (PROTONIX) PO (08:15)
[2018-08-13] MEDS: LACTOBACILLUS ACIDOPHILUS CAP (BACID) PO ×2 (08:15→21:25)
[2018-08-13] MEDS: FOLIC ACID 1 MG TAB PO (08:15)
[2018-08-13] MEDS: APIXABAN 5 MG TAB (ELIQUIS) PO ×2 (08:15→21:25)
[2018-08-13] MEDS: LOSARTAN 50 MG TAB PO (08:15)
[2018-08-13] MEDS: busPIRone 10 MG TAB PO ×3 (08:15→21:25)
[2018-08-13] MEDS: traMADol 50 MG TAB PO (08:16)
[2018-08-13] MEDS: HumaLOG INSULIN (NovoLOG) PER UNIT SC ×4 (08:16→21:00)
[2018-08-13] MEDS: SENOKOT S TAB PO ×2 (08:16→21:24)
[2018-08-13] MEDS: METAXALONE 800 MG TABLET PO (09:30)
[2018-08-13] MEDS ORDERED: PERCOCET 5MG/325MG TAB PO (11:45)
[2018-08-13 11:59] LABS: BEDSIDE GLUCOSE 223 MG/DL (70-105)
[2018-08-13 16:39] LABS: BEDSIDE GLUCOSE 205 MG/DL (70-105)
[2018-08-13 21:13] LABS: BEDSIDE GLUCOSE 246 MG/DL (70-105)
[2018-08-13] MEDS: LEVEMIR (INSULIN DETEMIR) 1 UNITS/0.01ML SC (21:24)
[2018-08-13] MEDS: ROSUVASTATIN 10 MG TAB (CRESTOR) PO (21:24)
[2018-08-13] MEDS: zolPIDEM TARTRATE 5 MG TAB PO (22:05)
[2018-08-14] MEDS: VANCOMYCIN HCL 1,000 MG, VIAL MATE ADAPTER 1 EACH in D5W 250 ML IV ×3 (01:14→17:29)
[2018-08-14] MEDS: SLF 3 ML SYR IV ×3 (05:10→21:01)
[2018-08-14] MEDS: PERCOCET 5MG/325MG TAB PO ×3 (06:11→21:01)
[2018-08-14 06:15] LABS: BEDSIDE GLUCOSE 172 MG/DL (70-105)
[2018-08-14 06:31] LABS: HEMATOCRIT 32.3 % (36.0-47.0); HEMOGLOBIN 10.3 g/dl (12.0-15.5); MEAN CORPUSCULAR HEMOGLOBIN 27.8 pg (27.0-33.0); MEAN CORPUSCULAR HGB CONC 31.9 g/dl (32.0-36.5); MEAN CORPUSCULAR VOLUME 87.3 fl (80.0-96.0); PLATELET COUNT, AUTOMATED 409 10^3/uL (150-450); RED CELL DISTRIBUTION WIDTH 13.2 % (11.5-14.5); WHITE BLOOD COUNT 10.7 10^3/uL (4.0-10.0)
[2018-08-14 06:49] LABS: ADD MANUAL DIFFER YES; DIFF SLIDE NUMBER 18; POS COUNT POS FLAG; POSITIVE MORPH POS FLAG
[2018-08-14 06:56] LABS: ALBUMIN 2.3 GM/DL (3.2-5.2); ALBUMIN/GLOBULIN RATIO 0.43 (1.00-1.93); ALKALINE PHOSPHATASE 231 U/L (45-117); ALT/SGPT 135 U/L (12-78); ANION GAP 6 MEQ/L (8-16); AST/SGOT 74 U/L (7-37); BILIRUBIN,TOTAL 0.4 MG/DL (0.2-1.0); BLOOD UREA NITROGEN 7 MG/DL (7-18); CALCIUM LEVEL 8.7 MG/DL (8.5-10.1); CARBON DIOXIDE LEVEL 30 MEQ/L (21-32); CHLORIDE LEVEL 101 MEQ/L (98-107); CREATININE FOR GFR 0.78 MG/DL (0.55-1.30); GLOMERULAR FILTRATION RATE > 60.0 (>58); GLUCOSE, FASTING 164 MG/DL (70-100); MAGNESIUM LEVEL 2.2 MG/DL (1.8-2.4); POTASSIUM SERUM 3.3 MEQ/L (3.5-5.1); SODIUM LEVEL 137 MEQ/L (136-145); TOTAL PROTEIN 7.7 GM/DL (6.4-8.2)
[2018-08-14] MEDS: BISACODYL 10 MG SUPP PR (06:59)
[2018-08-14] MEDS: ONDANSETRON 4MG/2ML VIAL (J2405) IV ×2 (06:59→14:08)
[2018-08-14 07:15] LABS: ATYPICAL LYMPH 2 % (0-5); BANDS 1 % (< 11); EOSINOPHILS 3 % (0-5); LYMPHOCYTES 22 % (16-52); METAMYELOCYTES 2 % (0-0); MONOCYTES 4 % (0-8); NEUTROPHILS 66 % (35-75)
[2018-08-14 07:16] LABS: PLATELET ESTIMATE NORMAL (NORMAL)
[2018-08-14] MEDS: busPIRone 10 MG TAB PO ×3 (08:39→21:01)
[2018-08-14] MEDS: APIXABAN 5 MG TAB (ELIQUIS) PO ×2 (08:39→21:00)
[2018-08-14] MEDS: MULTIVITAMINS/MINERALS THERAP 1 TAB PO (08:39)
[2018-08-14] MEDS: FOLIC ACID 1 MG TAB PO (08:39)
[2018-08-14] MEDS: LOSARTAN 50 MG TAB PO (08:40)
[2018-08-14] MEDS: HumaLOG INSULIN (NovoLOG) PER UNIT SC ×4 (08:40→20:45)
[2018-08-14] MEDS: SENOKOT S TAB PO ×2 (08:40→21:00)
[2018-08-14] MEDS: PANTOPRAZOLE 40MG TAB (PROTONIX) PO (08:40)
[2018-08-14] MEDS: LACTOBACILLUS ACIDOPHILUS CAP (BACID) PO ×2 (08:40→21:01)
[2018-08-14] MEDS: ACETAMINOPHEN TAB 650MG DOSE (2X325MG) PO (08:51)
[2018-08-14] MEDS: POTASSIUM CHLORIDE 10 MEQ SR TABLET PO (10:26)
[2018-08-14 12:22] LABS: BEDSIDE GLUCOSE 242 MG/DL (70-105)
[2018-08-14] MEDS: CLOTRIMAZOLE 1% TOPICAL CREAM 30GM TOP ×2 (12:42→21:02)
[2018-08-14 17:16] LABS: BEDSIDE GLUCOSE 175 MG/DL (70-105)
[2018-08-14 20:40] LABS: BEDSIDE GLUCOSE 226 MG/DL (70-105)
[2018-08-14] MEDS: LEVEMIR (INSULIN DETEMIR) 1 UNITS/0.01ML SC (20:59)
[2018-08-14] MEDS: zolPIDEM TARTRATE 5 MG TAB PO (21:00)
[2018-08-14] MEDS: ROSUVASTATIN 10 MG TAB (CRESTOR) PO (21:01)
[2018-08-15] MEDS: VANCOMYCIN HCL 1,000 MG, VIAL MATE ADAPTER 1 EACH in D5W 250 ML IV ×2 (00:33→09:00)
[2018-08-15] MEDS: PERCOCET 5MG/325MG TAB PO ×3 (04:37→22:14)
[2018-08-15] MEDS: SLF 3 ML SYR IV ×3 (06:00→20:47)
[2018-08-15 07:14] LABS: HEMATOCRIT 31.1 % (36.0-47.0); MEAN CORPUSCULAR HEMOGLOBIN 28.1 pg (27.0-33.0); MEAN CORPUSCULAR HGB CONC 32.2 g/dl (32.0-36.5); MEAN CORPUSCULAR VOLUME 87.4 fl (80.0-96.0); PLATELET COUNT, AUTOMATED 445 10^3/uL (150-450); RED BLOOD COUNT 3.56 10^6/uL (4.00-5.40); RED CELL DISTRIBUTION WIDTH 13.1 % (11.5-14.5); WHITE BLOOD COUNT 10.1 10^3/uL (4.0-10.0)
[2018-08-15 07:22] LABS: ADD MANUAL DIFFER YES; DIFF SLIDE NUMBER 19; POS COUNT POS FLAG; POSITIVE MORPH POS FLAG
[2018-08-15 07:44] LABS: ALBUMIN 2.3 GM/DL (3.2-5.2); ALBUMIN/GLOBULIN RATIO 0.46 (1.00-1.93); ALKALINE PHOSPHATASE 218 U/L (45-117); ALT/SGPT 112 U/L (12-78); ANION GAP 7 MEQ/L (8-16); AST/SGOT 99 U/L (7-37); BILIRUBIN,TOTAL 0.5 MG/DL (0.2-1.0); BLOOD UREA NITROGEN 5 MG/DL (7-18); CALCIUM LEVEL 8.7 MG/DL (8.5-10.1); CARBON DIOXIDE LEVEL 29 MEQ/L (21-32); CHLORIDE LEVEL 102 MEQ/L (98-107); CREATININE FOR GFR 0.77 MG/DL (0.55-1.30); GLOMERULAR FILTRATION RATE > 60.0 (>58); GLUCOSE, FASTING 163 MG/DL (70-100); POTASSIUM SERUM 3.8 MEQ/L (3.5-5.1); SODIUM LEVEL 138 MEQ/L (136-145); TOTAL PROTEIN 7.3 GM/DL (6.4-8.2)
[2018-08-15 08:06] LABS: BANDS 3 % (< 11); BASOPHILS 1 % (0-4); EOSINOPHILS 2 % (0-5); LYMPHOCYTES 24 % (16-52); MONOCYTES 3 % (0-8); NEUTROPHILS 67 % (35-75); PLATELET ESTIMATE NORMAL (NORMAL)
[2018-08-15 08:07] LABS: ANISOCYTOSIS 1+; POLYCHROMASIA 1+
[2018-08-15] MEDS: METAXALONE 800 MG TABLET PO (08:50)
[2018-08-15] MEDS: HumaLOG INSULIN (NovoLOG) PER UNIT SC ×5 (08:51→21:00)
[2018-08-15] MEDS: PANTOPRAZOLE 40MG TAB (PROTONIX) PO (08:51)
[2018-08-15] MEDS: SENOKOT S TAB PO ×2 (08:51→20:22)
[2018-08-15] MEDS: busPIRone 10 MG TAB PO ×3 (08:51→20:23)
[2018-08-15] MEDS: MULTIVITAMINS/MINERALS THERAP 1 TAB PO (08:51)
[2018-08-15] MEDS: APIXABAN 5 MG TAB (ELIQUIS) PO ×2 (08:51→20:23)
[2018-08-15] MEDS: FOLIC ACID 1 MG TAB PO (08:51)
[2018-08-15] MEDS: LACTOBACILLUS ACIDOPHILUS CAP (BACID) PO ×2 (08:51→20:22)
[2018-08-15] MEDS: LOSARTAN 50 MG TAB PO (08:54)
[2018-08-15] MEDS: CLOTRIMAZOLE 1% TOPICAL CREAM 30GM TOP ×2 (08:54→20:24)
[2018-08-15 11:42] LABS: BEDSIDE GLUCOSE 179 MG/DL (70-105)
[2018-08-15] MEDS: BACTRIM 160MG/800MG DS TAB PO ×2 (13:15→20:22)
[2018-08-15] MEDS: LevoFLOXacin 500 MG TABLET PO (13:15)
[2018-08-15] MEDS: GABAPENTIN 100 MG CAP PO ×3 (13:15→20:22)
[2018-08-15] MEDS: IPRATROPIUM 0.5MG/ALBUTEROL 2.5MG INH SOL UD 3ML (DUONEB)(J7620) NEB (15:32)
[2018-08-15 16:52] LABS: BEDSIDE GLUCOSE 235 MG/DL (70-105)
[2018-08-15 20:05] LABS: BEDSIDE GLUCOSE 204 MG/DL (70-105)
[2018-08-15] MEDS: LEVEMIR (INSULIN DETEMIR) 1 UNITS/0.01ML SC (20:22)
[2018-08-15] MEDS: ROSUVASTATIN 10 MG TAB (CRESTOR) PO (20:23)
[2018-08-16] MEDS: zolPIDEM TARTRATE 5 MG TAB PO (00:03)
[2018-08-16] MEDS: METAXALONE 800 MG TABLET PO (03:47)
[2018-08-16] MEDS: PERCOCET 5MG/325MG TAB PO ×3 (04:41→19:35)
[2018-08-16] MEDS: SLF 3 ML SYR IV ×3 (05:31→21:25)
[2018-08-16] MEDS: LevoFLOXacin 500 MG TABLET PO (05:31)
[2018-08-16 06:23] LABS: BASO # 0.1 10^3/uL (0.0-0.2); BASO % 0.6 % (0.0-1.0); EOS # 0.3 10^3/uL (0.0-0.50); EOS % 2.8 % (0.0-3.0); HEMATOCRIT 29.9 % (36.0-47.0); HEMOGLOBIN 9.7 g/dl (12.0-15.5); IMMATURE GRANULOCYTE % 4.2 % (0-3.0); LYMPH # 2.2 10^3/uL (1.5-4.5); LYMPH % 23.5 % (24.0-44.0); MEAN CORPUSCULAR HEMOGLOBIN 28.4 pg (27.0-33.0); MEAN CORPUSCULAR HGB CONC 32.4 g/dl (32.0-36.5); MEAN CORPUSCULAR VOLUME 87.4 fl (80.0-96.0); MONO # 0.7 10^3/uL (0.0-0.8); MONO % 7.9 % (0.0-5.0); NEUTROPHILS # 5.7 10^3/uL (1.8-7.7); PLATELET COUNT, AUTOMATED 442 10^3/uL (150-450); RED BLOOD COUNT 3.42 10^6/uL (4.00-5.40); RED CELL DISTRIBUTION WIDTH 13.2 % (11.5-14.5); WHITE BLOOD COUNT 9.4 10^3/uL (4.0-10.0)
[2018-08-16 06:52] LABS: ALBUMIN 2.1 GM/DL (3.2-5.2); ALBUMIN/GLOBULIN RATIO 0.41 (1.00-1.93); ALKALINE PHOSPHATASE 181 U/L (45-117); ALT/SGPT 79 U/L (12-78); ANION GAP 6 MEQ/L (8-16); AST/SGOT 40 U/L (7-37); BILIRUBIN,TOTAL 0.3 MG/DL (0.2-1.0); BLOOD UREA NITROGEN 6 MG/DL (7-18); CALCIUM LEVEL 8.1 MG/DL (8.5-10.1); CARBON DIOXIDE LEVEL 28 MEQ/L (21-32); CHLORIDE LEVEL 102 MEQ/L (98-107); GLOMERULAR FILTRATION RATE > 60.0 (>58); GLUCOSE, FASTING 187 MG/DL (70-100); POTASSIUM SERUM 3.9 MEQ/L (3.5-5.1); SODIUM LEVEL 136 MEQ/L (136-145); TOTAL PROTEIN 7.2 GM/DL (6.4-8.2)
[2018-08-16] MEDS: HumaLOG INSULIN (NovoLOG) PER UNIT SC ×3 (07:32→17:00)
[2018-08-16] MEDS: FOLIC ACID 1 MG TAB PO (07:32)
[2018-08-16] MEDS: GABAPENTIN 100 MG CAP PO ×3 (07:32→21:23)
[2018-08-16] MEDS: MULTIVITAMINS/MINERALS THERAP 1 TAB PO (07:32)
[2018-08-16] MEDS: APIXABAN 5 MG TAB (ELIQUIS) PO ×2 (07:32→21:23)
[2018-08-16] MEDS: SENOKOT S TAB PO ×2 (07:33→21:24)
[2018-08-16] MEDS: busPIRone 10 MG TAB PO ×3 (07:33→21:23)
[2018-08-16] MEDS: PANTOPRAZOLE 40MG TAB (PROTONIX) PO (07:33)
[2018-08-16] MEDS: LOSARTAN 50 MG TAB PO (07:33)
[2018-08-16] MEDS: BACTRIM 160MG/800MG DS TAB PO ×2 (07:33→21:24)
[2018-08-16] MEDS: LACTOBACILLUS ACIDOPHILUS CAP (BACID) PO ×2 (07:33→21:23)
[2018-08-16] MEDS: CLOTRIMAZOLE 1% TOPICAL CREAM 30GM TOP ×2 (07:34→21:25)
[2018-08-16 11:42] LABS: BEDSIDE GLUCOSE 178 MG/DL (70-105)
[2018-08-16 16:28] LABS: BEDSIDE GLUCOSE 182 MG/DL (70-105)
[2018-08-16 20:09] LABS: BEDSIDE GLUCOSE 195 MG/DL (70-105)
[2018-08-16] MEDS: ROSUVASTATIN 10 MG TAB (CRESTOR) PO (21:23)
[2018-08-16] MEDS: LEVEMIR (INSULIN DETEMIR) 1 UNITS/0.01ML SC (21:24)
[2018-08-17] MEDS: PERCOCET 5MG/325MG TAB PO ×4 (05:03→23:58)
[2018-08-17] MEDS: LevoFLOXacin 500 MG TABLET PO (05:23)
[2018-08-17] MEDS: MIRALAX *UNIT DOSE* 17GM PACKET PO (05:23)
[2018-08-17] MEDS: SLF 3 ML SYR IV ×3 (05:25→20:41)
[2018-08-17 06:56] LABS: BEDSIDE GLUCOSE 223 MG/DL (70-105)
[2018-08-17 07:32] LABS: HEMATOCRIT 30.9 % (36.0-47.0); HEMOGLOBIN 9.9 g/dl (12.0-15.5); MEAN CORPUSCULAR HEMOGLOBIN 28.2 pg (27.0-33.0); PLATELET COUNT, AUTOMATED 456 10^3/uL (150-450); RED BLOOD COUNT 3.51 10^6/uL (4.00-5.40); RED CELL DISTRIBUTION WIDTH 13.2 % (11.5-14.5); WHITE BLOOD COUNT 9.4 10^3/uL (4.0-10.0)
[2018-08-17 07:40] LABS: ANION GAP 8 MEQ/L (8-16); BLOOD UREA NITROGEN 6 MG/DL (7-18); CALCIUM LEVEL 8.2 MG/DL (8.5-10.1); CARBON DIOXIDE LEVEL 28 MEQ/L (21-32); CHLORIDE LEVEL 101 MEQ/L (98-107); CREATININE FOR GFR 0.78 MG/DL (0.55-1.30); GLOMERULAR FILTRATION RATE > 60.0 (>58); GLUCOSE, FASTING 207 MG/DL (70-100); POTASSIUM SERUM 4.6 MEQ/L (3.5-5.1); SODIUM LEVEL 137 MEQ/L (136-145)
[2018-08-17] MEDS: MULTIVITAMINS/MINERALS THERAP 1 TAB PO (08:03)
[2018-08-17] MEDS: FOLIC ACID 1 MG TAB PO (08:03)
[2018-08-17] MEDS: GABAPENTIN 100 MG CAP PO ×3 (08:03→20:39)
[2018-08-17] MEDS: LACTOBACILLUS ACIDOPHILUS CAP (BACID) PO ×2 (08:03→20:40)
[2018-08-17] MEDS: BACTRIM 160MG/800MG DS TAB PO ×2 (08:03→20:39)
[2018-08-17] MEDS: busPIRone 10 MG TAB PO ×3 (08:03→20:39)
[2018-08-17] MEDS: PANTOPRAZOLE 40MG TAB (PROTONIX) PO (08:03)
[2018-08-17] MEDS: SENOKOT S TAB PO ×2 (08:03→20:38)
[2018-08-17] MEDS: LOSARTAN 50 MG TAB PO (08:03)
[2018-08-17] MEDS: HumaLOG INSULIN (NovoLOG) PER UNIT SC ×4 (08:04→21:40)
[2018-08-17] MEDS: CLOTRIMAZOLE 1% TOPICAL CREAM 30GM TOP ×2 (08:05→20:40)
[2018-08-17] MEDS: APIXABAN 5 MG TAB (ELIQUIS) PO ×2 (08:05→20:39)
[2018-08-17 11:37] LABS: BEDSIDE GLUCOSE 211 MG/DL (70-105)
[2018-08-17 16:51] LABS: BEDSIDE GLUCOSE 225 MG/DL (70-105)
[2018-08-17] MEDS: ROSUVASTATIN 10 MG TAB (CRESTOR) PO (20:39)
[2018-08-17] MEDS: LEVEMIR (INSULIN DETEMIR) 1 UNITS/0.01ML SC (21:41)
[2018-08-17 22:19] LABS: BEDSIDE GLUCOSE 277 MG/DL (70-105)
[2018-08-18] MEDS: MIRALAX *UNIT DOSE* 17GM PACKET PO (06:16)
[2018-08-18] MEDS: LevoFLOXacin 500 MG TABLET PO (06:17)
[2018-08-18] MEDS: PERCOCET 5MG/325MG TAB PO ×3 (06:17→20:10)
[2018-08-18] MEDS: SLF 3 ML SYR IV ×4 (06:18→22:00)
[2018-08-18 06:36] LABS: HEMATOCRIT 31.3 % (36.0-47.0); HEMOGLOBIN 10.1 g/dl (12.0-15.5); MEAN CORPUSCULAR HEMOGLOBIN 28.4 pg (27.0-33.0); MEAN CORPUSCULAR HGB CONC 32.3 g/dl (32.0-36.5); MEAN CORPUSCULAR VOLUME 87.9 fl (80.0-96.0); PLATELET COUNT, AUTOMATED 473 10^3/uL (150-450); RED BLOOD COUNT 3.56 10^6/uL (4.00-5.40); RED CELL DISTRIBUTION WIDTH 13.2 % (11.5-14.5); WHITE BLOOD COUNT 9.6 10^3/uL (4.0-10.0)
[2018-08-18 07:11] LABS: ALBUMIN 2.3 GM/DL (3.2-5.2); ALBUMIN/GLOBULIN RATIO 0.43 (1.00-1.93); ALKALINE PHOSPHATASE 157 U/L (45-117); ALT/SGPT 47 U/L (12-78); ANION GAP 6 MEQ/L (8-16); AST/SGOT 14 U/L (7-37); BILIRUBIN,TOTAL 0.3 MG/DL (0.2-1.0); BLOOD UREA NITROGEN 7 MG/DL (7-18); C REACTIVE PROTEIN QUANTITATIV 9.58 MG/DL (0.00-0.30); CALCIUM LEVEL 8.5 MG/DL (8.5-10.1); CARBON DIOXIDE LEVEL 29 MEQ/L (21-32); CHLORIDE LEVEL 100 MEQ/L (98-107); CREATININE FOR GFR 0.91 MG/DL (0.55-1.30); GLOMERULAR FILTRATION RATE > 60.0 (>58); GLUCOSE, FASTING 210 MG/DL (70-100); POTASSIUM SERUM 4.3 MEQ/L (3.5-5.1); SODIUM LEVEL 135 MEQ/L (136-145); TOTAL PROTEIN 7.7 GM/DL (6.4-8.2)
[2018-08-18] MEDS ORDERED: SPIRONOLACTONE 25 MG TAB PO (09:00)
[2018-08-18] MEDS ORDERED: FUROSEMIDE 40 MG TAB PO (09:00)
[2018-08-18] MEDS: GABAPENTIN 100 MG CAP PO ×3 (10:00→20:09)
[2018-08-18] MEDS: busPIRone 10 MG TAB PO ×3 (10:00→20:09)
[2018-08-18] MEDS: APIXABAN 5 MG TAB (ELIQUIS) PO ×2 (10:00→20:09)
[2018-08-18] MEDS: BACTRIM 160MG/800MG DS TAB PO ×2 (10:07→20:08)
[2018-08-18] MEDS: MULTIVITAMINS/MINERALS THERAP 1 TAB PO (10:07)
[2018-08-18] MEDS: LOSARTAN 50 MG TAB PO (10:07)
[2018-08-18] MEDS: LACTOBACILLUS ACIDOPHILUS CAP (BACID) PO ×2 (10:07→20:09)
[2018-08-18] MEDS: PANTOPRAZOLE 40MG TAB (PROTONIX) PO (10:07)
[2018-08-18] MEDS: SENOKOT S TAB PO ×2 (10:07→20:09)
[2018-08-18] MEDS: FOLIC ACID 1 MG TAB PO (10:08)
[2018-08-18] MEDS: HumaLOG INSULIN (NovoLOG) PER UNIT SC ×4 (10:09→21:18)
[2018-08-18] MEDS: CLOTRIMAZOLE 1% TOPICAL CREAM 30GM TOP ×2 (10:10→21:19)
[2018-08-18 11:22] LABS: BEDSIDE GLUCOSE 275 MG/DL (70-105)
[2018-08-18] MEDS: IPRATROPIUM 0.5MG/ALBUTEROL 2.5MG INH SOL UD 3ML (DUONEB)(J7620) NEB (13:47)
[2018-08-18 16:41] LABS: BEDSIDE GLUCOSE 272 MG/DL (70-105)
[2018-08-18] MEDS: MOM 30ML SUSPENSION UDC PO (17:46)
[2018-08-18] MEDS: ROSUVASTATIN 10 MG TAB (CRESTOR) PO (20:09)
[2018-08-18] MEDS: LEVEMIR (INSULIN DETEMIR) 1 UNITS/0.01ML SC (21:19)
[2018-08-18 21:54] LABS: BEDSIDE GLUCOSE 264 MG/DL (70-105)
[2018-08-19] MEDS: PERCOCET 5MG/325MG TAB PO ×2 (02:32→09:04)
[2018-08-19] MEDS: SLF 3 ML SYR IV (05:45)
[2018-08-19] MEDS: LevoFLOXacin 500 MG TABLET PO (05:52)
[2018-08-19 06:40] LABS: HEMATOCRIT 31.8 % (36.0-47.0); HEMOGLOBIN 10.2 g/dl (12.0-15.5); MEAN CORPUSCULAR HEMOGLOBIN 27.9 pg (27.0-33.0); MEAN CORPUSCULAR HGB CONC 32.1 g/dl (32.0-36.5); MEAN CORPUSCULAR VOLUME 86.9 fl (80.0-96.0); PLATELET COUNT, AUTOMATED 494 10^3/uL (150-450); RED BLOOD COUNT 3.66 10^6/uL (4.00-5.40); RED CELL DISTRIBUTION WIDTH 13.2 % (11.5-14.5); WHITE BLOOD COUNT 9.9 10^3/uL (4.0-10.0)
[2018-08-19 07:04] LABS: ALBUMIN 2.5 GM/DL (3.2-5.2); ALBUMIN/GLOBULIN RATIO 0.47 (1.00-1.93); ALKALINE PHOSPHATASE 133 U/L (45-117); ALT/SGPT 40 U/L (12-78); ANION GAP 6 MEQ/L (8-16); AST/SGOT 14 U/L (7-37); BILIRUBIN,TOTAL 0.3 MG/DL (0.2-1.0); BLOOD UREA NITROGEN 9 MG/DL (7-18); CALCIUM LEVEL 9.4 MG/DL (8.5-10.1); CARBON DIOXIDE LEVEL 30 MEQ/L (21-32); CHLORIDE LEVEL 98 MEQ/L (98-107); CREATININE FOR GFR 0.95 MG/DL (0.55-1.30); GLOMERULAR FILTRATION RATE > 60.0 (>58); GLUCOSE, FASTING 250 MG/DL (70-100); POTASSIUM SERUM 4.5 MEQ/L (3.5-5.1); SODIUM LEVEL 134 MEQ/L (136-145); TOTAL PROTEIN 7.8 GM/DL (6.4-8.2)
[2018-08-19 08:19] LABS: C REACTIVE PROTEIN QUANTITATIV 7.44 MG/DL (0.00-0.30)
[2018-08-19] MEDS: HumaLOG INSULIN (NovoLOG) PER UNIT SC (09:01)
[2018-08-19] MEDS: APIXABAN 5 MG TAB (ELIQUIS) PO (09:01)
[2018-08-19] MEDS: FOLIC ACID 1 MG TAB PO (09:01)
[2018-08-19] MEDS: busPIRone 10 MG TAB PO (09:02)
[2018-08-19] MEDS: LACTOBACILLUS ACIDOPHILUS CAP (BACID) PO (09:02)
[2018-08-19] MEDS: BACTRIM 160MG/800MG DS TAB PO (09:02)
[2018-08-19] MEDS: SENOKOT S TAB PO (09:02)
[2018-08-19] MEDS: PANTOPRAZOLE 40MG TAB (PROTONIX) PO (09:02)
[2018-08-19] MEDS: GABAPENTIN 100 MG CAP PO (09:03)
[2018-08-19] MEDS: MULTIVITAMINS/MINERALS THERAP 1 TAB PO (09:03)
[2018-08-19] MEDS: LOSARTAN 50 MG TAB PO (09:03)
[2018-08-19] MEDS: FLUCONAZOLE 50MG TABLET PO (10:05)
[2018-08-19] MEDS: CLOTRIMAZOLE 1% TOPICAL CREAM 30GM TOP (10:06)
[2018-08-21 14:25] LABS: BEDSIDE GLUCOSE 269 MG/DL (70-105)
== END 2018-08-19 11:59 | disposition home health service (06) | DRG 603 ==
LOC: M ED 08:56 → M MSPAV 08-10 17:25 → M ED INP 11:09 → M PCU 12:05
PROVIDERS: Internal Medicine
DX: L03.115 Cellulitis of right lower limb (principal); E87.1 Hypo-osmolality and hyponatremia; E83.42 Hypomagnesemia; K21.9 Gastro-esophageal reflux disease without esophagitis; F41.9 Anxiety disorder, unspecified; F32.9 Major depressive disorder, single episode, unspecified; I10 Essential (primary) hypertension; E11.65 Type 2 diabetes mellitus with hyperglycemia; Z86.718 Personal history of other venous thrombosis and embolism; Z79.01 Long term (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 anticoagulants; Z79.4 Long term (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 insulin; Z79.899 Other long term (current) drug therapy; Z88.5 Allergy status to narcotic agent; Z91.040 Latex allergy status; Z91.018 Allergy to other foods

== ENCOUNTER 2018-08-24 11:41 | Inpatient (IN) | payer MEDICARE, MEDICAID ==
[2018-08-24 12:49] LABS: BASO # 0.1 10^3/uL (0.0-0.2); EOS # 0.1 10^3/uL (0.0-0.50); EOS % 1.9 % (0.0-3.0); HEMATOCRIT 32.5 % (36.0-47.0); HEMOGLOBIN 10.4 g/dl (12.0-15.5); IMMATURE GRANULOCYTE % 0.3 % (0-3.0); LYMPH # 2.9 10^3/uL (1.5-4.5); MEAN CORPUSCULAR VOLUME 87.6 fl (80.0-96.0); MONO # 0.5 10^3/uL (0.0-0.8); MONO % 6.6 % (0.0-5.0); NEUTROPHILS # 3.2 10^3/uL (1.8-7.7); NEUTROPHILS % 47.2 % (36.0-66.0); PLATELET COUNT, AUTOMATED 515 10^3/uL (150-450); RED BLOOD COUNT 3.71 10^6/uL (4.00-5.40); RED CELL DISTRIBUTION WIDTH 13.2 % (11.5-14.5); WHITE BLOOD COUNT 6.8 10^3/uL (4.0-10.0)
[2018-08-24 12:58] LABS: ANION GAP 8 MEQ/L (8-16); BLOOD UREA NITROGEN 11 MG/DL (7-18); C REACTIVE PROTEIN QUANTITATIV 1.99 MG/DL (0.00-0.30); CALCIUM LEVEL 8.6 MG/DL (8.5-10.1); CARBON DIOXIDE LEVEL 27 MEQ/L (21-32); CHLORIDE LEVEL 101 MEQ/L (98-107); CREATININE FOR GFR 0.93 MG/DL (0.55-1.30); GLOMERULAR FILTRATION RATE > 60.0 (>58); GLUCOSE, FASTING 215 MG/DL (70-100); POTASSIUM SERUM 4.2 MEQ/L (3.5-5.1); SODIUM LEVEL 136 MEQ/L (136-145)
[2018-08-24 13:01] LABS: LACTIC ACID SEPSIS PROTOCOL 1.8 MMOL/L (0.4-2.0)
[2018-08-24 13:28] LABS: ERYTHROCYTE SEDIMENTATION RATE 106 mm/hr (0-20)
[2018-08-24] MEDS: NS 1,000 ML IV (13:30)
[2018-08-24] MEDS ORDERED: METAXALONE 800 MG TABLET PO (14:45)
[2018-08-24] MEDS ORDERED: ACETAMINOPHEN TAB 650MG DOSE (2X325MG) PO (14:45)
[2018-08-24] MEDS ORDERED: ONDANSETRON 4MG/2ML VIAL (J2405) IV (14:45)
[2018-08-24] MEDS: busPIRone 10 MG TAB PO ×2 (16:00→21:27)
[2018-08-24] MEDS: GABAPENTIN 300 MG CAP PO ×2 (16:00→21:27)
[2018-08-24] MEDS ORDERED: PIPERACILLIN/TAZOBACTAM SOD 3.375 GM in D5W MINI-BAG PLUS 50 ML IV (16:00)
[2018-08-24] MEDS ORDERED: VANCOMYCIN HCL 1,000 MG, VIAL MATE ADAPTER 1 EACH in D5W 250 ML IV (17:00)
[2018-08-24 18:32] LABS: BEDSIDE GLUCOSE 103 MG/DL (70-105)
[2018-08-24] MEDS: PERCOCET 5MG/325MG TAB PO ×2 (19:21→23:50)
[2018-08-24] MEDS: PIPERACILLIN/TAZOBACTAM SOD 3.375 GM in D5W MINI-BAG PLUS 50 ML IV (19:21)
[2018-08-24] MEDS ORDERED: GLUCOSE 4 GM CHEW TABLET PO (19:30)
[2018-08-24] MEDS ORDERED: GLUCAGON FOR INJ 1 MG VIAL (J1610) SC (19:30)
[2018-08-24] MEDS ORDERED: DEXTROSE 50% 50 ML SYRINGE IV (19:30)
[2018-08-24 21:24] LABS: BEDSIDE GLUCOSE 221 MG/DL (70-105)
[2018-08-24] MEDS: VANCOMYCIN HCL 1,000 MG, VIAL MATE ADAPTER 1 EACH in D5W 250 ML IV (21:26)
[2018-08-24] MEDS: APIXABAN 5 MG TAB (ELIQUIS) PO (21:27)
[2018-08-24] MEDS: ROSUVASTATIN 10 MG TAB (CRESTOR) PO (21:27)
[2018-08-24] MEDS: HumaLOG INSULIN (NovoLOG) PER UNIT SC (21:27)
[2018-08-24] MEDS: LEVEMIR (INSULIN DETEMIR) 1 UNITS/0.01ML SQ (21:29)
[2018-08-25] MEDS: PIPERACILLIN/TAZOBACTAM SOD 3.375 GM in D5W MINI-BAG PLUS 50 ML IV ×4 (00:58→19:08)
[2018-08-25] MEDS: PERCOCET 5MG/325MG TAB PO ×4 (01:36→19:09)
[2018-08-25] MEDS: VANCOMYCIN HCL 1,000 MG, VIAL MATE ADAPTER 1 EACH in D5W 250 ML IV ×3 (03:50→20:32)
[2018-08-25 06:58] LABS: BASO # 0.1 10^3/uL (0.0-0.2); BASO % 1.5 % (0.0-1.0); EOS # 0.2 10^3/uL (0.0-0.50); EOS % 3.1 % (0.0-3.0); HEMATOCRIT 29.7 % (36.0-47.0); HEMOGLOBIN 9.3 g/dl (12.0-15.5); IMMATURE GRANULOCYTE % 0.2 % (0-3.0); LYMPH # 3.4 10^3/uL (1.5-4.5); LYMPH % 55.4 % (24.0-44.0); MEAN CORPUSCULAR HEMOGLOBIN 27.6 pg (27.0-33.0); MEAN CORPUSCULAR HGB CONC 31.3 g/dl (32.0-36.5); MEAN CORPUSCULAR VOLUME 88.1 fl (80.0-96.0); MONO # 0.4 10^3/uL (0.0-0.8); MONO % 6.7 % (0.0-5.0); NEUTROPHILS % 33.1 % (36.0-66.0); PLATELET COUNT, AUTOMATED 464 10^3/uL (150-450); RED BLOOD COUNT 3.37 10^6/uL (4.00-5.40); RED CELL DISTRIBUTION WIDTH 13.1 % (11.5-14.5); WHITE BLOOD COUNT 6.2 10^3/uL (4.0-10.0)
[2018-08-25 07:29] LABS: ALBUMIN 2.4 GM/DL (3.2-5.2); ALBUMIN/GLOBULIN RATIO 0.51 (1.00-1.93); ALKALINE PHOSPHATASE 81 U/L (45-117); ALT/SGPT 22 U/L (12-78); ANION GAP 6 MEQ/L (8-16); AST/SGOT 23 U/L (7-37); BILIRUBIN,TOTAL 0.2 MG/DL (0.2-1.0); BLOOD UREA NITROGEN 9 MG/DL (7-18); CARBON DIOXIDE LEVEL 27 MEQ/L (21-32); CHLORIDE LEVEL 106 MEQ/L (98-107); GLOMERULAR FILTRATION RATE > 60.0 (>58); GLUCOSE, FASTING 136 MG/DL (70-100); POTASSIUM SERUM 3.8 MEQ/L (3.5-5.1); SODIUM LEVEL 139 MEQ/L (136-145); TOTAL PROTEIN 7.1 GM/DL (6.4-8.2)
[2018-08-25] MEDS: HumaLOG INSULIN (NovoLOG) PER UNIT SC ×4 (08:53→20:33)
[2018-08-25] MEDS: busPIRone 10 MG TAB PO ×3 (08:54→20:32)
[2018-08-25] MEDS: MULTIVITAMINS/MINERALS THERAP 1 TAB PO (08:54)
[2018-08-25] MEDS: VITAMIN D 50,000 UNITS CAPSULE (ERGOCALCIFEROL 1.25MG) PO (08:54)
[2018-08-25] MEDS: FOLIC ACID 1 MG TAB PO (08:54)
[2018-08-25] MEDS: APIXABAN 5 MG TAB (ELIQUIS) PO ×2 (08:54→20:32)
[2018-08-25] MEDS: OMEPRAZOLE 20 MG CAP PO (08:55)
[2018-08-25] MEDS: GABAPENTIN 300 MG CAP PO ×3 (08:55→20:32)
[2018-08-25] MEDS: LOSARTAN 50 MG TAB PO (08:55)
[2018-08-25 12:20] LABS: BEDSIDE GLUCOSE 129 MG/DL (70-105)
[2018-08-25 16:54] LABS: BEDSIDE GLUCOSE 206 MG/DL (70-105)
[2018-08-25 19:58] LABS: VANCOMYCIN LEVEL TROUGH 17.1 UG/ML (10.0-20.0)
[2018-08-25] MEDS: ROSUVASTATIN 10 MG TAB (CRESTOR) PO (20:32)
[2018-08-25] MEDS: LEVEMIR (INSULIN DETEMIR) 1 UNITS/0.01ML SQ (20:33)
[2018-08-25 20:53] LABS: BEDSIDE GLUCOSE 189 MG/DL (70-105)
[2018-08-26] MEDS: PIPERACILLIN/TAZOBACTAM SOD 3.375 GM in D5W MINI-BAG PLUS 50 ML IV ×4 (01:10→18:47)
[2018-08-26] MEDS: PERCOCET 5MG/325MG TAB PO ×4 (02:11→21:48)
[2018-08-26] MEDS: VANCOMYCIN HCL 1,000 MG, VIAL MATE ADAPTER 1 EACH in D5W 250 ML IV ×3 (03:46→20:17)
[2018-08-26 06:47] LABS: BASO # 0.1 10^3/uL (0.0-0.2); EOS # 0.2 10^3/uL (0.0-0.50); EOS % 2.5 % (0.0-3.0); HEMATOCRIT 28.1 % (36.0-47.0); IMMATURE GRANULOCYTE % 0.3 % (0-3.0); LYMPH % 50.6 % (24.0-44.0); MEAN CORPUSCULAR VOLUME 87.3 fl (80.0-96.0); MONO # 0.4 10^3/uL (0.0-0.8); MONO % 6.4 % (0.0-5.0); NEUTROPHILS # 2.3 10^3/uL (1.8-7.7); NEUTROPHILS % 39.2 % (36.0-66.0); PLATELET COUNT, AUTOMATED 433 10^3/uL (150-450); RED BLOOD COUNT 3.22 10^6/uL (4.00-5.40); RED CELL DISTRIBUTION WIDTH 13.2 % (11.5-14.5)
[2018-08-26 07:08] LABS: ALBUMIN 2.3 GM/DL (3.2-5.2); ALBUMIN/GLOBULIN RATIO 0.52 (1.00-1.93); ALKALINE PHOSPHATASE 76 U/L (45-117); ALT/SGPT 19 U/L (12-78); ANION GAP 5 MEQ/L (8-16); AST/SGOT 14 U/L (7-37); BILIRUBIN,TOTAL 0.2 MG/DL (0.2-1.0); BLOOD UREA NITROGEN 8 MG/DL (7-18); C REACTIVE PROTEIN QUANTITATIV 1.01 MG/DL (0.00-0.30); CALCIUM LEVEL 7.9 MG/DL (8.5-10.1); CARBON DIOXIDE LEVEL 28 MEQ/L (21-32); CHLORIDE LEVEL 106 MEQ/L (98-107); CREATININE FOR GFR 0.76 MG/DL (0.55-1.30); GLOMERULAR FILTRATION RATE > 60.0 (>58); GLUCOSE, FASTING 206 MG/DL (70-100); SODIUM LEVEL 139 MEQ/L (136-145); TOTAL PROTEIN 6.7 GM/DL (6.4-8.2)
[2018-08-26] MEDS: HumaLOG INSULIN (NovoLOG) PER UNIT SC ×4 (08:31→21:00)
[2018-08-26] MEDS: busPIRone 10 MG TAB PO ×3 (09:28→21:46)
[2018-08-26] MEDS: MULTIVITAMINS/MINERALS THERAP 1 TAB PO (09:29)
[2018-08-26] MEDS: LOSARTAN 50 MG TAB PO (09:29)
[2018-08-26] MEDS: FOLIC ACID 1 MG TAB PO (09:29)
[2018-08-26] MEDS: APIXABAN 5 MG TAB (ELIQUIS) PO ×2 (09:29→21:46)
[2018-08-26] MEDS: GABAPENTIN 300 MG CAP PO ×3 (09:29→21:46)
[2018-08-26] MEDS: OMEPRAZOLE 20 MG CAP PO (09:29)
[2018-08-26 11:44] LABS: BEDSIDE GLUCOSE 157 MG/DL (70-105)
[2018-08-26 17:16] LABS: BEDSIDE GLUCOSE 192 MG/DL (70-105)
[2018-08-26] MEDS: ROSUVASTATIN 10 MG TAB (CRESTOR) PO (21:46)
[2018-08-26 21:52] LABS: BEDSIDE GLUCOSE 226 MG/DL (70-105)
[2018-08-26] MEDS: LEVEMIR (INSULIN DETEMIR) 1 UNITS/0.01ML SQ (22:00)
[2018-08-27] MEDS: PIPERACILLIN/TAZOBACTAM SOD 3.375 GM in D5W MINI-BAG PLUS 50 ML IV ×3 (00:58→13:36)
[2018-08-27] MEDS: PERCOCET 5MG/325MG TAB PO ×3 (02:32→16:19)
[2018-08-27] MEDS: VANCOMYCIN HCL 1,000 MG, VIAL MATE ADAPTER 1 EACH in D5W 250 ML IV ×3 (04:12→20:08)
[2018-08-27 07:05] LABS: BASO # 0.1 10^3/uL (0.0-0.2); BASO % 1.3 % (0.0-1.0); EOS # 0.2 10^3/uL (0.0-0.50); EOS % 2.7 % (0.0-3.0); IMMATURE GRANULOCYTE % 0.2 % (0-3.0); LYMPH # 3.2 10^3/uL (1.5-4.5); LYMPH % 50.9 % (24.0-44.0); MEAN CORPUSCULAR HEMOGLOBIN 27.6 pg (27.0-33.0); MEAN CORPUSCULAR HGB CONC 32.1 g/dl (32.0-36.5); MEAN CORPUSCULAR VOLUME 85.9 fl (80.0-96.0); MONO # 0.4 10^3/uL (0.0-0.8); MONO % 6.3 % (0.0-5.0); NEUTROPHILS # 2.4 10^3/uL (1.8-7.7); NEUTROPHILS % 38.6 % (36.0-66.0); PLATELET COUNT, AUTOMATED 455 10^3/uL (150-450); RED BLOOD COUNT 3.26 10^6/uL (4.00-5.40); RED CELL DISTRIBUTION WIDTH 12.9 % (11.5-14.5); WHITE BLOOD COUNT 6.2 10^3/uL (4.0-10.0)
[2018-08-27 07:35] LABS: ALBUMIN 2.4 GM/DL (3.2-5.2); ALBUMIN/GLOBULIN RATIO 0.56 (1.00-1.93); ALKALINE PHOSPHATASE 73 U/L (45-117); ALT/SGPT 17 U/L (12-78); ANION GAP 7 MEQ/L (8-16); AST/SGOT 12 U/L (7-37); BILIRUBIN,TOTAL 0.2 MG/DL (0.2-1.0); BLOOD UREA NITROGEN 8 MG/DL (7-18); C REACTIVE PROTEIN QUANTITATIV 1.07 MG/DL (0.00-0.30); CARBON DIOXIDE LEVEL 29 MEQ/L (21-32); CHLORIDE LEVEL 103 MEQ/L (98-107); CREATININE FOR GFR 0.79 MG/DL (0.55-1.30); GLOMERULAR FILTRATION RATE > 60.0 (>58); GLUCOSE, FASTING 169 MG/DL (70-100); SODIUM LEVEL 139 MEQ/L (136-145); TOTAL PROTEIN 6.7 GM/DL (6.4-8.2)
[2018-08-27] MEDS: VITAMIN D 50,000 UNITS CAPSULE (ERGOCALCIFEROL 1.25MG) PO (08:25)
[2018-08-27] MEDS: FOLIC ACID 1 MG TAB PO (08:25)
[2018-08-27] MEDS: APIXABAN 5 MG TAB (ELIQUIS) PO ×2 (08:25→21:15)
[2018-08-27] MEDS: busPIRone 10 MG TAB PO ×3 (08:26→21:14)
[2018-08-27] MEDS: MULTIVITAMINS/MINERALS THERAP 1 TAB PO (08:26)
[2018-08-27] MEDS: OMEPRAZOLE 20 MG CAP PO (08:26)
[2018-08-27] MEDS: GABAPENTIN 300 MG CAP PO ×3 (08:26→21:15)
[2018-08-27] MEDS: LOSARTAN 50 MG TAB PO (08:27)
[2018-08-27] MEDS: HumaLOG INSULIN (NovoLOG) PER UNIT SC ×4 (08:52→21:00)
[2018-08-27] MEDS: FLUCONAZOLE 100 MG TAB PO (11:15)
[2018-08-27] MEDS: KETOROLAC 30 MG/ML VIAL (J1885) IV ×3 (11:16→23:32)
[2018-08-27 11:46] LABS: BEDSIDE GLUCOSE 130 MG/DL (70-105)
[2018-08-27] MEDS: MICONAZOLE-7 VAGINAL 2% CREAM 47.7 GM PV (12:19)
[2018-08-27] MEDS: LACTOBACILLUS ACIDOPHILUS CAP (BACID) PO ×3 (12:19→21:14)
[2018-08-27] MEDS ORDERED: MICONAZOLE TOPICAL 2% CREAM 15GM TOP (16:00)
[2018-08-27 17:37] LABS: BEDSIDE GLUCOSE 213 MG/DL (70-105)
[2018-08-27] MEDS: FUROSEMIDE 20 MG/2 ML VIAL (J1940) IV (17:48)
[2018-08-27] MEDS ORDERED: FUROSEMIDE 40 MG/4 ML VIAL (J1940) IV (18:00)
[2018-08-27 21:03] LABS: BEDSIDE GLUCOSE 242 MG/DL (70-105)
[2018-08-27] MEDS: ROSUVASTATIN 10 MG TAB (CRESTOR) PO (21:15)
[2018-08-27] MEDS: LEVEMIR (INSULIN DETEMIR) 1 UNITS/0.01ML SQ (21:16)
[2018-08-28] MEDS: VANCOMYCIN HCL 1,000 MG, VIAL MATE ADAPTER 1 EACH in D5W 250 ML IV ×2 (04:06→11:48)
[2018-08-28] MEDS: KETOROLAC 30 MG/ML VIAL (J1885) IV ×2 (04:06→11:11)
[2018-08-28] MEDS: PERCOCET 5MG/325MG TAB PO (06:49)
[2018-08-28 07:06] LABS: BASO # 0.1 10^3/uL (0.0-0.2); BASO % 1.1 % (0.0-1.0); EOS # 0.2 10^3/uL (0.0-0.50); EOS % 3.4 % (0.0-3.0); HEMATOCRIT 28.8 % (36.0-47.0); HEMOGLOBIN 9.2 g/dl (12.0-15.5); IMMATURE GRANULOCYTE % 0.2 % (0-3.0); LYMPH # 2.8 10^3/uL (1.5-4.5); LYMPH % 48.8 % (24.0-44.0); MEAN CORPUSCULAR HEMOGLOBIN 27.7 pg (27.0-33.0); MEAN CORPUSCULAR HGB CONC 31.9 g/dl (32.0-36.5); MEAN CORPUSCULAR VOLUME 86.7 fl (80.0-96.0); MONO # 0.4 10^3/uL (0.0-0.8); MONO % 6.4 % (0.0-5.0); NEUTROPHILS # 2.3 10^3/uL (1.8-7.7); NEUTROPHILS % 40.1 % (36.0-66.0); PLATELET COUNT, AUTOMATED 436 10^3/uL (150-450); RED BLOOD COUNT 3.32 10^6/uL (4.00-5.40); RED CELL DISTRIBUTION WIDTH 12.9 % (11.5-14.5); WHITE BLOOD COUNT 5.6 10^3/uL (4.0-10.0)
[2018-08-28 07:33] LABS: ALBUMIN 2.4 GM/DL (3.2-5.2); ALBUMIN/GLOBULIN RATIO 0.56 (1.00-1.93); ALKALINE PHOSPHATASE 71 U/L (45-117); ALT/SGPT 16 U/L (12-78); ANION GAP 6 MEQ/L (8-16); AST/SGOT 12 U/L (7-37); BILIRUBIN,TOTAL 0.2 MG/DL (0.2-1.0); BLOOD UREA NITROGEN 10 MG/DL (7-18); C REACTIVE PROTEIN QUANTITATIV 1.07 MG/DL (0.00-0.30); CALCIUM LEVEL 8.2 MG/DL (8.5-10.1); CARBON DIOXIDE LEVEL 29 MEQ/L (21-32); CHLORIDE LEVEL 102 MEQ/L (98-107); CREATININE FOR GFR 0.78 MG/DL (0.55-1.30); GLOMERULAR FILTRATION RATE > 60.0 (>58); GLUCOSE, FASTING 179 MG/DL (70-100); POTASSIUM SERUM 3.8 MEQ/L (3.5-5.1); SODIUM LEVEL 137 MEQ/L (136-145); TOTAL PROTEIN 6.7 GM/DL (6.4-8.2)
[2018-08-28] MEDS: HumaLOG INSULIN (NovoLOG) PER UNIT SC ×3 (08:30→17:54)
[2018-08-28] MEDS ORDERED: MOM 30ML SUSPENSION UDC PO (08:30)
[2018-08-28] MEDS: LACTOBACILLUS ACIDOPHILUS CAP (BACID) PO ×2 (08:30→12:19)
[2018-08-28] MEDS: busPIRone 10 MG TAB PO ×2 (09:15→15:55)
[2018-08-28] MEDS: LOSARTAN 50 MG TAB PO (09:16)
[2018-08-28] MEDS: SENOKOT S TAB PO (09:17)
[2018-08-28] MEDS: GABAPENTIN 300 MG CAP PO ×2 (09:17→15:55)
[2018-08-28] MEDS: FOLIC ACID 1 MG TAB PO (09:17)
[2018-08-28] MEDS: APIXABAN 5 MG TAB (ELIQUIS) PO (09:17)
[2018-08-28] MEDS: FLUCONAZOLE 100 MG TAB PO (09:17)
[2018-08-28] MEDS: MULTIVITAMINS/MINERALS THERAP 1 TAB PO (09:21)
[2018-08-28] MEDS: OMEPRAZOLE 20 MG CAP PO (09:21)
[2018-08-28] MEDS: MOM 30ML SUSPENSION UDC PO (09:21)
[2018-08-28 11:52] LABS: BEDSIDE GLUCOSE 186 MG/DL (70-105)
[2018-08-28 16:56] LABS: BEDSIDE GLUCOSE 222 MG/DL (70-105)
== END 2018-08-28 18:10 | disposition home or self-care (01) | DRG 603 ==
LOC: M ED 11:41 → M ED INP 13:28 → M PED 18:10
DX: L03.115 Cellulitis of right lower limb (principal); I10 Essential (primary) hypertension; K21.9 Gastro-esophageal reflux disease without esophagitis; F41.9 Anxiety disorder, unspecified; F32.9 Major depressive disorder, single episode, unspecified; E11.9 Type 2 diabetes mellitus without complications; Z87.891 Personal history of nicotine dependence; Z79.4 Long term (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 insulin; Z79.899 Other long term (current) drug therapy; Z88.5 Allergy status to narcotic agent; Z91.018 Allergy to other foods; Z91.040 Latex allergy status; E78.5 Hyperlipidemia, unspecified

== ENCOUNTER → 2018-09-15 | Outpatient (CLI) | payer MEDICARE, MEDICAID ==
[2018-09-15 11:07] LABS: ERYTHROCYTE SEDIMENTATION RATE 69 mm/hr (0-20)
[2018-09-15 11:33] LABS: ESTIMATED AVERAGE GLUCOSE 177 MG/DL (60-110); HEMOGLOBIN A1c 7.8 %
[2018-09-15 11:43] LABS: ALBUMIN 3.5 GM/DL (3.2-5.2); ALBUMIN/GLOBULIN RATIO 0.74 (1.00-1.93); ALKALINE PHOSPHATASE 77 U/L (45-117); ALT/SGPT 19 U/L (12-78); ANION GAP 9 MEQ/L (8-16); AST/SGOT 15 U/L (7-37); BILIRUBIN,TOTAL 0.3 MG/DL (0.2-1.0); BLOOD UREA NITROGEN 9 MG/DL (7-18); C REACTIVE PROTEIN QUANTITATIV 1.35 MG/DL (0.00-0.30); CALCIUM LEVEL 9.2 MG/DL (8.5-10.1); CARBON DIOXIDE LEVEL 25 MEQ/L (21-32); CHLORIDE LEVEL 103 MEQ/L (98-107); CREATININE FOR GFR 0.79 MG/DL (0.55-1.30); GLOMERULAR FILTRATION RATE > 60.0 (>58); GLUCOSE, FASTING 97 MG/DL (70-100); POTASSIUM SERUM 4.3 MEQ/L (3.5-5.1); SODIUM LEVEL 137 MEQ/L (136-145); TOTAL PROTEIN 8.2 GM/DL (6.4-8.2)
== END ==
LOC: M LAB 09:59
DX: I10 Essential (primary) hypertension (principal); E11.51 Type 2 diabetes mellitus with diabetic peripheral angiopathy without gangrene; Z87.2 Personal history of diseases of the skin and subcutaneous tissue
CPT/HCPCS: 83735

== ENCOUNTER 2018-09-24 15:47 | Emergency (ER) | payer MEDICARE, MEDICAID ==
[2018-09-24 17:15] LABS: BASO # 0.1 10^3/uL (0.0-0.2); BASO % 0.6 % (0.0-1.0); EOS # 0.2 10^3/uL (0.0-0.50); EOS % 2.2 % (0.0-3.0); HEMOGLOBIN 12.1 g/dl (12.0-15.5); IMMATURE GRANULOCYTE % 0.2 % (0-3.0); LYMPH % 46.8 % (24.0-44.0); MEAN CORPUSCULAR HEMOGLOBIN 28.1 pg (27.0-33.0); MEAN CORPUSCULAR HGB CONC 32.7 g/dl (32.0-36.5); MEAN CORPUSCULAR VOLUME 85.8 fl (80.0-96.0); MONO # 0.4 10^3/uL (0.0-0.8); MONO % 4.3 % (0.0-5.0); NEUTROPHILS # 3.9 10^3/uL (1.8-7.7); NEUTROPHILS % 45.9 % (36.0-66.0); PLATELET COUNT, AUTOMATED 343 10^3/uL (150-450); RED BLOOD COUNT 4.31 10^6/uL (4.00-5.40); RED CELL DISTRIBUTION WIDTH 13.1 % (11.5-14.5); WHITE BLOOD COUNT 8.5 10^3/uL (4.0-10.0)
[2018-09-24 17:34] LABS: ANION GAP 9 MEQ/L (8-16); BLOOD UREA NITROGEN 14 MG/DL (7-18); C REACTIVE PROTEIN QUANTITATIV 0.56 MG/DL (0.00-0.30); CARBON DIOXIDE LEVEL 26 MEQ/L (21-32); CHLORIDE LEVEL 102 MEQ/L (98-107); CREATININE FOR GFR 0.86 MG/DL (0.55-1.30); GLOMERULAR FILTRATION RATE > 60.0 (>58); GLUCOSE, FASTING 179 MG/DL (70-100); POTASSIUM SERUM 3.5 MEQ/L (3.5-5.1); SODIUM LEVEL 137 MEQ/L (136-145)
[2018-09-24 17:39] LABS: LACTIC ACID SEPSIS PROTOCOL 1.3 MMOL/L (0.4-2.0)
[2018-09-24 17:41] LABS: ERYTHROCYTE SEDIMENTATION RATE 55 mm/hr (0-20)
== END 2018-09-24 19:27 | disposition home or self-care (01) ==
LOC: M ED 15:47
DX: I89.0 Lymphedema, not elsewhere classified (principal); I87.2 Venous insufficiency (chronic) (peripheral); E11.40 Type 2 diabetes mellitus with diabetic neuropathy, unspecified; I10 Essential (primary) hypertension; K58.9 Irritable bowel syndrome, unspecified; K21.9 Gastro-esophageal reflux disease without esophagitis; K76.0 Fatty (change of) liver, not elsewhere classified; E78.00 Pure hypercholesterolemia, unspecified; F31.9 Bipolar disorder, unspecified; F43.10 Post-traumatic stress disorder, unspecified; M48.02 Spinal stenosis, cervical region; R16.0 Hepatomegaly, not elsewhere classified; F42.9 Obsessive-compulsive disorder, unspecified; M32.9 Systemic lupus erythematosus, unspecified; Z85.828 Personal history of other malignant neoplasm of skin; Z86.718 Personal history of other venous thrombosis and embolism; Z87.891 Personal history of nicotine dependence; Z79.01 Long term (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 anticoagulants; Z79.4 Long term (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 insulin; Z79.899 Other long term (current) drug therapy; Z88.5 Allergy status to narcotic agent; Z91.040 Latex allergy status; Z91.018 Allergy to other foods
CPT/HCPCS: 93971

== ENCOUNTER 2018-10-22 14:51 | Emergency (ER) | payer MEDICARE, MEDICAID, OTHER ==
[2018-10-22] MEDS: MORPHINE 4 MG/ML 1ML VIAL/SYRINGE (J2270) IV (15:47)
[2018-10-22] MEDS: NS 1,000 ML IV (15:47)
[2018-10-22] MEDS: ONDANSETRON 4MG/2ML VIAL (J2405) IV (15:47)
[2018-10-22 16:05] LABS: BASO # 0.1 10^3/uL (0.0-0.2); BASO % 0.6 % (0.0-1.0); EOS # 0.2 10^3/uL (0.0-0.50); EOS % 1.7 % (0.0-3.0); HEMATOCRIT 37.4 % (36.0-47.0); HEMOGLOBIN 12.3 g/dl (12.0-15.5); IMMATURE GRANULOCYTE % 0.5 % (0-3.0); LYMPH # 4.2 10^3/uL (1.5-4.5); LYMPH % 40.8 % (24.0-44.0); MEAN CORPUSCULAR HEMOGLOBIN 27.9 pg (27.0-33.0); MEAN CORPUSCULAR HGB CONC 32.9 g/dl (32.0-36.5); MEAN CORPUSCULAR VOLUME 84.8 fl (80.0-96.0); MONO # 0.4 10^3/uL (0.0-0.8); MONO % 4.1 % (0.0-5.0); NEUTROPHILS # 5.4 10^3/uL (1.8-7.7); NEUTROPHILS % 52.3 % (36.0-66.0); PLATELET COUNT, AUTOMATED 335 10^3/uL (150-450); RED BLOOD COUNT 4.41 10^6/uL (4.00-5.40); WHITE BLOOD COUNT 10.3 10^3/uL (4.0-10.0)
[2018-10-22 16:15] LABS: ANION GAP 6 MEQ/L (8-16); BLOOD UREA NITROGEN 12 MG/DL (7-18); C REACTIVE PROTEIN QUANTITATIV 0.63 MG/DL (0.00-0.30); CALCIUM LEVEL 8.8 MG/DL (8.5-10.1); CARBON DIOXIDE LEVEL 28 MEQ/L (21-32); CHLORIDE LEVEL 101 MEQ/L (98-107); CREATININE FOR GFR 0.78 MG/DL (0.55-1.30); GLOMERULAR FILTRATION RATE > 60.0 (>58); GLUCOSE, FASTING 227 MG/DL (70-100); POTASSIUM SERUM 3.8 MEQ/L (3.5-5.1); SODIUM LEVEL 135 MEQ/L (136-145)
[2018-10-22 16:16] LABS: INR 1.04; PROTHROMBIN TIME 13.7 SECONDS (12.1-14.4)
[2018-10-22 16:17] LABS: PARTIAL THROMBOPLASTIN TIME 33.2 SECONDS (25.4-37.6)
[2018-10-22 16:32] LABS: LACTIC ACID SEPSIS PROTOCOL 2.2 MMOL/L (0.4-2.0)
[2018-10-22 16:35] LABS: ERYTHROCYTE SEDIMENTATION RATE 46 mm/hr (0-20)
[2018-10-22] MEDS ORDERED: NS 1,000 ML IV (16:45)
== END 2018-10-22 16:58 | disposition home or self-care (01) ==
LOC: M ED 14:51
DX: M79.661 Pain in right lower leg (principal); R11.0 Nausea; E11.9 Type 2 diabetes mellitus without complications; I10 Essential (primary) hypertension; G43.909 Migraine, unspecified, not intractable, without status migrainosus; E78.5 Hyperlipidemia, unspecified; J45.909 Unspecified asthma, uncomplicated; J01.90 Acute sinusitis, unspecified; K21.9 Gastro-esophageal reflux disease without esophagitis; F43.10 Post-traumatic stress disorder, unspecified; F41.9 Anxiety disorder, unspecified; F32.9 Major depressive disorder, single episode, unspecified; F31.9 Bipolar disorder, unspecified; F42.9 Obsessive-compulsive disorder, unspecified; M32.9 Systemic lupus erythematosus, unspecified; Z79.01 Long term (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 anticoagulants; Z79.4 Long term (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 insulin; Z79.899 Other long term (current) drug therapy; Z88.5 Allergy status to narcotic agent; Z91.040 Latex allergy status; Z91.018 Allergy to other foods
CPT/HCPCS: J2270

== ENCOUNTER → 2018-12-08 | Outpatient (REF) | payer MEDICARE, MEDICAID ==
[~2018-12-08] MED LIST changes: +AMBI5TAB PO; +AUGM875T28 PO; +CEFD1CAP8 PO; -DRIS50002 PO; +DRIS50003 PO; +FOLI1TAB11 PO; -FOLI1TAB4 PO; +GABA-843 PO; +LANTINJ4 SQ; -LASI40TA PO; +LASI40TA9 PO; +LEVA1TAB2 PO; +LOSA50TA88 PO; +METF-723; +METH2.5T48 PO; -METH2.5TA PO; +METO5TAB2 PO; +NORCOTAB PO; +OMEP40CA2 PO; +PERC5TAB12 PO; +PRED20TA PO; +ROSU20TA4 PO; +SPIR-10 PO; -SPIR25TA2 PO; +SULF1TAB93 PO; +TOUJ1.2I SC; +TRAM50TA2 PO; +TYLE650T35 PO; +ZOFR4TAB14 PO; +ZOFR4TAB16 PO; -ZYVO100T PO; +ZYVO1TAB PO
[2018-12-08 13:32] LABS: APPEARANCE, URINE TURBID (CLEAR); BACTERIA, URINE AUTO 1+ (NEGATIVE); BILIRUBIN, URINE AUTO NEGATIVE (NEGATIVE); BLOOD, URINE BLOOD NEGATIVE (NEGATIVE); COLOR, URINE YELLOW (YELLOW); GLUCOSE, URINE (UA) AUTO 2+ mg/dL (NEGATIVE); KETONE, URINE AUTO NEGATIVE (NEGATIVE); LEUKOCYTE ESTERASE, URINE AUTO 2+ (NEGATIVE); MUCUS, URINE SMALL (NEGATIVE); NITRITE, URINE AUTO NEGATIVE (NEGATIVE); PROTEIN, URINE AUTO NEGATIVE (NEGATIVE); RBC, URINE AUTO 3 /HPF (0-3); SPECIFIC GRAVITY URINE AUTO 1.031 (1.002-1.035); SQUAMOUS EPITHELIAL CELL UR AU 44 /HPF (0-6); UROBILINOGEN, URINE AUTO 0.2 mg/dL (0.0-2.0); WBC, URINE AUTO 33 /HPF (0-3)
[2018-12-08 13:53] LABS: CHOLESTEROL RISK RATIO 4.518 (<5); THYROID STIMULATING HORMONE 1.57 uIU/ML (0.358-3.740)
== END ==
LOC: M SFHCPLAZ 11:18
PROVIDERS: ATTEND Internal Medicine
DX: E78.5 Hyperlipidemia, unspecified (principal); M62.81 Muscle weakness (generalized); F51.01 Primary insomnia; R30.0 Dysuria
CPT/HCPCS: 80061; 81001; 82085; 82550; 84443; 87086; G0463

== ENCOUNTER → 2018-12-10 | Outpatient (RCR) | payer MEDICARE, MEDICAID | END | disposition home or self-care (01) | LOC: M PT 11-16 11:44 | DX: Z51.89 Encounter for other specified aftercare (principal); M54.5 Low back pain ==

== ENCOUNTER → 2018-12-31 | Outpatient (CLI) | payer MEDICARE, MEDICAID ==
--- NOTE | 2018-12-31 18:23 | REPMRS ---
Patient History The patient states she has not had a clinical breast exam in over a year. Family history of endometrial cancer under age 50 in maternal grandmother, breast cancer under age 50 in maternal aunt, breast cancer under age 50 in maternal aunt, breast cancer under age 50 in maternal aunt, endometrial cancer under age 50 in maternal aunt, unknown cancer under age 50 in maternal cousin, unknown cancer under age 50 in maternal cousin, endometrial cancer under age 50 in maternal cousin, endometrial cancer under age 50 in maternal cousin, breast cancer under age 50 in maternal cousin, breast cancer under age 50 in maternal cousin, unknown cancer under age 50 in maternal aunt, unknown cancer under age 50 in maternal uncle, unknown cancer under age 50 in maternal uncle. Took hormonal contraceptives for 11 years. Digital Mammo Screening Bilat: December 31, 2018 - Exam #: [id number] Bilateral CC and MLO view(s) were taken. Technologist: Sarah Hines, Technologist Prior study comparison: December 26, 2017, bilateral digital mammo screening bilat performed at [facility]. December 24, 2016, bilateral digital mammo screening bilat performed at [facility]. FINDINGS: The breast tissue is almost entirely fat. There has been no change in the appearance of the mammogram from the prior studies. There is no interval development of dominant mass, areas of architectural distortion, or clustered microcalcification typical of malignancy. Scattered lymph nodes are seen in the axillae. 3-D tomosynthesis shows no additional findings. The patient's Tyrer-Cuzick lifetime risk assessment score is 11.5 %. No significant changes when compared with prior studies. Assessment: BI-RADS/ACR category 2 mammogram. Benign Findings. Recommendation Routine screening mammogram in 1 year. A. Negative x-ray reports should not delay biopsy if a dominant or clinically suspicious mass is present. B. Four to eight percent of cancers are not identified by mammography. C. Adenosis and dense breast may obscure an underlying neoplasm.(for women over age 40). This mammogram was interpreted with the aid of an FDA-approved computer-aided dectection system. Electronically Signed By: Seth De La Paz MD 12/31/18 [id number]
== END ==
LOC: M RAD 10:49
PROVIDERS: ATTEND Internal Medicine
DX: Z12.31 Encounter for screening mammogram for malignant neoplasm of breast (principal)

== ENCOUNTER → 2019-01-07 | Outpatient (RCR) | payer MEDICARE, MEDICAID | LOC: M PT 12-29 10:09 | PROVIDERS: ATTEND Psychiatry & Neurology Neurology | DX: Z51.89 Encounter for other specified aftercare (principal); M54.5 Low back pain ==

== ENCOUNTER 2019-02-24 12:21 | Emergency (ER) | payer MEDICARE, MEDICAID ==
[~2019-02-24] VITALS: Ht 170.2 cm; Wt 118.2 kg
[~2019-02-24 12:21] MED LIST changes: -/METO5TA PO; -CITA20TA4 PO; +CITA20TA6 PO; +HYDR-3715 PO; +METO1TAB88 PO; -NORCOTAB PO; +OXYC1TAB23 PO; +PRED-351 PO; -PRED10TA PO
--- NOTE | 2019-02-24 13:24 | REP ---
CT Head without contrast HISTORY: Headache COMPARISON: 07/05/2017 There is no intraparenchymal hemorrhage, acute infarct, mass or midline shift. The ventricular system is normal in appearance. There is no extra cerebral collection. There is no fracture. The visualized sinuses are clear. IMPRESSION: There is no intracranial lesion. Electronically Signed by Francisco Shah MD 02/24/2019 01:16 P
[2019-02-24] MEDS ORDERED: METOCLOPRAMIDE INJ 10MG/2ML VIAL (J2765) IV ONE (13:45)
[2019-02-24] MEDS ORDERED: KETOROLAC 30 MG/ML VIAL (J1885) IV ONE (13:45)
[2019-02-24] MEDS ORDERED: NS 1,000 ML IV ONE (13:45)
[2019-02-24 14:04] LABS: BASO # 0.1 10^3/uL (0.0-0.2); BASO % 0.6 % (0.0-1.0); EOS # 0.2 10^3/uL (0.0-0.50); HEMATOCRIT 39.7 % (36.0-47.0); HEMOGLOBIN 13.2 g/dl (12.0-15.5); LYMPH # 3.2 10^3/uL (1.5-4.5); LYMPH % 31.8 % (24.0-44.0); MEAN CORPUSCULAR HEMOGLOBIN 28.6 pg (27.0-33.0); MEAN CORPUSCULAR HGB CONC 33.2 g/dl (32.0-36.5); MEAN CORPUSCULAR VOLUME 85.9 fl (80.0-96.0); MONO # 0.5 10^3/uL (0.0-0.8); MONO % 4.6 % (0.0-5.0); NEUTROPHILS # 6.1 10^3/uL (1.8-7.7); NEUTROPHILS % 60.6 % (36.0-66.0); PLATELET COUNT, AUTOMATED 308 10^3/uL (150-450); RED BLOOD COUNT 4.62 10^6/uL (4.00-5.40)
--- NOTE | 2019-02-24 14:05 | REP ---
Chest one-view HISTORY: Chest pain Comparison: 08/09/2018 The lungs are clear. T the heart is upper limits of normal in size. The pulmonary vasculature is normal in appearance. Impression: No acute disease. Electronically Signed by Francisco Shah MD 02/24/2019 01:56 P
[2019-02-24 14:36] LABS: BLOOD UREA NITROGEN 10 MG/DL (7-18); CALCIUM LEVEL 9.6 MG/DL (8.5-10.1); CARBON DIOXIDE LEVEL 26 MEQ/L (21-32); CHLORIDE LEVEL 105 MEQ/L (98-107); CPK CREATINE PHOSPHOKINASE 43 U/L (26-192); GLOMERULAR FILTRATION RATE > 60.0 (>58); GLUCOSE, FASTING 145 MG/DL (70-100); MB/CK RELATIVE INDEX 3.26 (< OR =4); SODIUM LEVEL 138 MEQ/L (136-145); TROPONIN I < 0.02 NG/ML (< 0.10)
[2019-02-24] MEDS ORDERED: PROMETHAZINE INJ 25 MG/ML VIAL (J2550) IV ONE (16:00)
[2019-02-24] MEDS ORDERED: SUMAtriptan SUCCINATE 6 MG/0.5 ML VIAL SC ONE (16:00)
[2019-02-24] MEDS ORDERED: IMIT50TA PO (17:56)
[2019-02-24 18:26] VITALS: BP 135/66
--- NOTE | 2019-02-25 21:32 | ECGEPIP ---
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
== END 2019-02-24 18:33 | disposition home or self-care (01) ==
LOC: M ED 12:21
DX: G44.099 Other trigeminal autonomic cephalgias (TAC), not intractable (principal); E11.9 Type 2 diabetes mellitus without complications; E78.00 Pure hypercholesterolemia, unspecified; Z86.718 Personal history of other venous thrombosis and embolism; I10 Essential (primary) hypertension; E78.5 Hyperlipidemia, unspecified; K21.9 Gastro-esophageal reflux disease without esophagitis; G47.00 Insomnia, unspecified; Z79.4 Long term (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 insulin; Z79.01 Long term (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 anticoagulants; Z79.899 Other long term (current) drug therapy; Z88.5 Allergy status to narcotic agent; Z91.040 Latex allergy status
CPT/HCPCS: 70450; 71045; 80048; 82550; 82553; 84443; 84484; 85025; 85652; 93005; 93041; 94760; 96374; 96375; 99285; J1885; J2765

== ENCOUNTER → 2019-03-08 | Outpatient (CLI) | payer MEDICARE, MEDICAID ==
[~2019-03-08] MED LIST changes: +IMIT50TA PO
[2019-03-08 10:05] LABS: ALBUMIN 3.7 GM/DL (3.2-5.2); ALT/SGPT 28 U/L (12-78); BILIRUBIN,TOTAL 0.5 MG/DL (0.2-1.0); BLOOD UREA NITROGEN 12 MG/DL (7-18); C REACTIVE PROTEIN QUANTITATIV 0.85 MG/DL (0.00-0.30); CARBON DIOXIDE LEVEL 29 MEQ/L (21-32); CHLORIDE LEVEL 102 MEQ/L (98-107); CHOLESTEROL LEVEL 196 MG/DL (<200); CHOLESTEROL RISK RATIO 4.083 (<5); CREATININE FOR GFR 0.76 MG/DL (0.55-1.30); GLOMERULAR FILTRATION RATE > 60.0 (>58); GLUCOSE, FASTING 207 MG/DL (70-100); HDL CHOLESTEROL 48 MG/DL (>40); LDL CHOLESTEROL 117 MG/DL (<100); NON-HDL-C 148 MG/DL; POTASSIUM SERUM 4.1 MEQ/L (3.5-5.1); SODIUM LEVEL 135 MEQ/L (136-145); TOTAL PROTEIN 7.5 GM/DL (6.4-8.2); TRIGLYCERIDES LEVEL 153 MG/DL (<150)
[2019-03-08 10:13] LABS: MALB URINE SIEMENS 14.5 MG/L; MAU/CREAT RATIO 7.6 MCG/MG (0.0-30.0)
[2019-03-08 10:32] LABS: HEMOGLOBIN A1c 9.3 %
== END ==
LOC: M LAB 08:46
PROVIDERS: ATTEND Internal Medicine
DX: I10 Essential (primary) hypertension (principal); G43.109 Migraine with aura, not intractable, without status migrainosus; E11.51 Type 2 diabetes mellitus with diabetic peripheral angiopathy without gangrene; E78.5 Hyperlipidemia, unspecified

== ENCOUNTER 2019-04-22 09:54 | Emergency (ER) | payer MEDICARE, MEDICAID ==
[~2019-04-22] VITALS: Ht 170.2 cm; Wt 125.5 kg
[2019-04-22] MEDS ORDERED: NAPR-885 PO (10:12)
[2019-04-22] MEDS ORDERED: NS 1,000 ML IV ONE (10:30)
[2019-04-22 11:28] LABS: BASO # 0.1 10^3/uL (0.0-0.2); BASO % 0.9 % (0.0-1.0); EOS # 0.2 10^3/uL (0.0-0.50); EOS % 1.9 % (0.0-3.0); HEMATOCRIT 38.8 % (36.0-47.0); HEMOGLOBIN 12.9 g/dl (12.0-15.5); LYMPH # 3.5 10^3/uL (1.5-4.5); LYMPH % 39.4 % (24.0-44.0); MEAN CORPUSCULAR HEMOGLOBIN 29.5 pg (27.0-33.0); MEAN CORPUSCULAR HGB CONC 33.2 g/dl (32.0-36.5); MEAN CORPUSCULAR VOLUME 88.8 fl (80.0-96.0); MONO # 0.4 10^3/uL (0.0-0.8); MONO % 4.2 % (0.0-5.0); NEUTROPHILS # 4.7 10^3/uL (1.8-7.7); NEUTROPHILS % 53.3 % (36.0-66.0); PLATELET COUNT, AUTOMATED 304 10^3/uL (150-450); RED BLOOD COUNT 4.37 10^6/uL (4.00-5.40); WHITE BLOOD COUNT 8.9 10^3/uL (4.0-10.0)
--- NOTE | 2019-04-22 11:28 | REP ---
CT ABDOMEN AND PELVIS WITHOUT CONTRAST: CT abdomen and pelvis performed without oral or IV contrast. Sagittal and coronal reconstruction images are performed. Visualized lung bases demonstrate no infiltrate. Liver is grossly unremarkable. Patient has had a prior cholecystectomy. There does not appear to be significant biliary dilatation. The spleen, adrenals, pancreas and kidneys are unremarkable. No renal, ureteral or bladder calculus is seen and I see no hydroureteronephrosis. There is mild atherosclerotic calcification of the abdominal aorta without aneurysm. There is no adenopathy. There is no free air or free fluid. There is no bowel wall thickening. No pelvic mass is seen. There are degenerative changes of the spine. Tiny amount of air in the bladder is likely from recent catheterization. IMPRESSION: No renal, ureteral or bladder calculus and no hydroureteronephrosis. No free air or free fluid. Status post cholecystectomy. Tiny amount of air in the bladder is likely from recent catheterization. Electronically Signed by Shawn Aguirre MD 04/22/2019 04:38 P
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
[2019-04-22 11:49] LABS: ALBUMIN 3.3 GM/DL (3.2-5.2); ALT/SGPT 34 U/L (12-78); BILIRUBIN,TOTAL 0.3 MG/DL (0.2-1.0); BLOOD UREA NITROGEN 11 MG/DL (7-18); CALCIUM LEVEL 8.5 MG/DL (8.5-10.1); CARBON DIOXIDE LEVEL 22 MEQ/L (21-32); CHLORIDE LEVEL 107 MEQ/L (98-107); CREATININE FOR GFR 0.82 MG/DL (0.55-1.30); GLOMERULAR FILTRATION RATE > 60.0 (>58); GLUCOSE, FASTING 224 MG/DL (70-100); POTASSIUM SERUM 4.6 MEQ/L (3.5-5.1); SODIUM LEVEL 138 MEQ/L (136-145); TOTAL PROTEIN 7.4 GM/DL (6.4-8.2)
[2019-04-22 12:08] VITALS: BP 147/65
== END 2019-04-22 12:10 | disposition home or self-care (01) ==
LOC: M ED 09:54
DX: M25.551 Pain in right hip (principal); M25.521 Pain in right elbow; M25.531 Pain in right wrist; R10.9 Unspecified abdominal pain; E11.9 Type 2 diabetes mellitus without complications; I10 Essential (primary) hypertension; J45.909 Unspecified asthma, uncomplicated; K58.9 Irritable bowel syndrome, unspecified; E78.00 Pure hypercholesterolemia, unspecified; R51 Headache; M06.9 Rheumatoid arthritis, unspecified; M32.9 Systemic lupus erythematosus, unspecified; F41.9 Anxiety disorder, unspecified; F33.9 Major depressive disorder, recurrent, unspecified; F43.10 Post-traumatic stress disorder, unspecified; F42.9 Obsessive-compulsive disorder, unspecified; Z79.899 Other long term (current) drug therapy; Z79.4 Long term (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 insulin; Z79.01 Long term (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 anticoagulants; Z88.5 Allergy status to narcotic agent; Z91.040 Latex allergy status

== ENCOUNTER → 2019-05-26 | Outpatient (REF) | payer MEDICARE, MEDICAID ==
[~2019-05-26] MED LIST changes: +NAPR-885 PO; -ROSU20TA4 PO; +ROSU20TA5 PO
== END ==
LOC: M SFHCPLAZ 14:00
PROVIDERS: ATTEND Internal Medicine
DX: R10.9 Unspecified abdominal pain (principal); Z53.8 Procedure and treatment not carried out for other reasons

== ENCOUNTER → 2019-05-28 | Outpatient (REF) | payer MEDICARE, MEDICAID ==
[2019-05-28 15:01] LABS: APPEARANCE, URINE CLEAR (CLEAR); BACTERIA, URINE AUTO NEGATIVE (NEGATIVE); BILIRUBIN, URINE AUTO NEGATIVE (NEGATIVE); BLOOD, URINE BLOOD 1+ (NEGATIVE); COLOR, URINE YELLOW (YELLOW); GLUCOSE, URINE (UA) AUTO 3+ mg/dL (NEGATIVE); KETONE, URINE AUTO NEGATIVE (NEGATIVE); LEUKOCYTE ESTERASE, URINE AUTO NEGATIVE (NEGATIVE); NITRITE, URINE AUTO NEGATIVE (NEGATIVE); PROTEIN, URINE AUTO NEGATIVE (NEGATIVE); RBC, URINE AUTO 2 /HPF (0-3); SPECIFIC GRAVITY URINE AUTO 1.022 (1.002-1.035); SQUAMOUS EPITHELIAL CELL UR AU 1 /HPF (0-6); UROBILINOGEN, URINE AUTO 0.2 mg/dL (0.0-2.0); WBC, URINE AUTO 0 /HPF (0-3)
== END ==
LOC: M SFHCPLAZ 14:46
PROVIDERS: ATTEND Internal Medicine
DX: R10.9 Unspecified abdominal pain (principal)

== ENCOUNTER → 2019-07-09 | Outpatient (REF) | payer MEDICARE, MEDICAID ==
[2019-07-09 19:07] LABS: CHLAMYDIA DNA AMPLIFICATION NEGATIVE (NEGATIVE); GC DNA AMPLIFICATION NEGATIVE (NEGATIVE)
== END ==
LOC: M SFHCWAGY 14:59
PROVIDERS: ATTEND Family Medicine
DX: Z12.4 Encounter for screening for malignant neoplasm of cervix (principal); Z11.3 Encounter for screening for infections with a predominantly sexual mode of transmission; Z80.9 Family history of malignant neoplasm, unspecified
CPT/HCPCS: 81002; 87491; 87591; G0123; G0463

== ENCOUNTER 2019-09-30 14:01 | Emergency (ER) | payer MEDICARE, MEDICAID ==
[~2019-09-30] VITALS: Ht 170.2 cm; Wt 118.2 kg
[~2019-09-30 14:01] MED LIST changes: -OMEP40CA2 PO; +OMEP40CA97 PO
--- NOTE | 2019-09-30 14:55 | REP ---
Duplex extremity venous ultrasound: Right lower extremity. History: Right calf pain. History of DVT. Findings: The deep veins are anechoic and fully compressible from the groin to the popliteal fossa in the right lower extremity. Color flow imaging is homogeneous. Spectral Doppler interrogation demonstrates intact respiratory variation in flow and normal manual augmentation of flow. There is no evidence of deep vein thrombosis. Impression: Negative right lower extremity duplex venous ultrasound. No evidence of deep vein thrombosis. Electronically Signed by Delio Sylvester MD 09/30/2019 02:46 P
[2019-09-30 15:33] VITALS: BP 125/74
== END 2019-09-30 15:37 | disposition home or self-care (01) ==
LOC: M ED 14:01
DX: M25.561 Pain in right knee (principal); E11.9 Type 2 diabetes mellitus without complications; K21.9 Gastro-esophageal reflux disease without esophagitis; K58.9 Irritable bowel syndrome, unspecified; F31.9 Bipolar disorder, unspecified; F43.10 Post-traumatic stress disorder, unspecified; F42.9 Obsessive-compulsive disorder, unspecified; Z86.718 Personal history of other venous thrombosis and embolism; Z79.899 Other long term (current) drug therapy; Z79.4 Long term (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 insulin; Z79.01 Long term (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 anticoagulants; Z88.5 Allergy status to narcotic agent; Z91.040 Latex allergy status

== ENCOUNTER → 2019-11-16 | Outpatient (REF) | payer MEDICARE, MEDICAID ==
[~2019-11-16] MED LIST changes: -VALS1TAB49 PO; +VALS40TA9 PO
[2019-11-16 19:52] LABS: INFLUENZA A AMPLIFICATION NEGATIVE (NEGATIVE); INFLUENZA B AMPLIFICATION NEGATIVE (NEGATIVE)
== END ==
LOC: M LAB REF 19:13
PROVIDERS: ATTEND Physician Assistant Medical
DX: R50.9 Fever, unspecified (principal)

== ENCOUNTER → 2019-12-07 | Outpatient (CLI) | payer MEDICARE, MEDICAID ==
[2019-12-07 09:03] LABS: HEMOGLOBIN 12.7 g/dl (12.0-15.5); MEAN CORPUSCULAR HEMOGLOBIN 29.1 pg (27.0-33.0); MEAN CORPUSCULAR HGB CONC 31.8 g/dl (32.0-36.5); MEAN CORPUSCULAR VOLUME 91.5 fl (80.0-96.0); PLATELET COUNT, AUTOMATED 299 10^3/uL (150-450); RED BLOOD COUNT 4.37 10^6/uL (4.00-5.40); WHITE BLOOD COUNT 8.6 10^3/uL (4.0-10.0)
[2019-12-07 09:41] LABS: ALBUMIN 3.6 GM/DL (3.2-5.2); ALT/SGPT 29 U/L (12-78); BILIRUBIN,TOTAL 0.3 MG/DL (0.2-1.0); BLOOD UREA NITROGEN 11 MG/DL (7-18); CALCIUM LEVEL 8.9 MG/DL (8.5-10.1); CARBON DIOXIDE LEVEL 27 MEQ/L (21-32); CHLORIDE LEVEL 105 MEQ/L (98-107); CHOLESTEROL LEVEL 195 MG/DL (<200); CHOLESTEROL RISK RATIO 3.979 (<5); CREATININE FOR GFR 0.72 MG/DL (0.55-1.30); FERRITIN 87 NG/ML (8-252); FREE T4 1.14 NG/DL (0.76-1.46); GLOMERULAR FILTRATION RATE > 60.0 (>51); GLUCOSE, FASTING 162 MG/DL (70-100); HDL CHOLESTEROL 49 MG/DL (>40); IRON (FE) 46 UG/DL (50-170); LDL CHOLESTEROL 118 MG/DL (<100); NON-HDL-C 146 MG/DL; PERCENT SATURATION 17.4 % (13.2-45.0); POTASSIUM SERUM 4.5 MEQ/L (3.5-5.1); SODIUM LEVEL 138 MEQ/L (136-145); TOTAL IRON BINDING CAPACITY 265 UG/DL (250-450); TOTAL PROTEIN 7.3 GM/DL (6.4-8.2); TRIGLYCERIDES LEVEL 141 MG/DL (<150)
[2019-12-07 09:46] LABS: FOLATE 10.5 NG/ML; TOTAL 25(OH) VITAMIN D 21.1 NG/ML (30.0-100.0); VITAMIN B12 LEVEL 583 PG/ML
[2019-12-07 09:47] LABS: HEMOGLOBIN A1c 8.8 %
== END ==
LOC: M LAB 08:13
PROVIDERS: ATTEND Registered Nurse
DX: E66.01 Morbid (severe) obesity due to excess calories (principal); Z79.51 Long term (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 inhaled steroids; Z79.4 Long term (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 insulin; Z79.899 Other long term (current) drug therapy

== ENCOUNTER 2019-12-28 14:03 | Emergency (ER) | payer MEDICARE, MEDICAID ==
[2019-12-28] MEDS ORDERED: TRAZ-252 OR (14:19)
[2019-12-28] MEDS ORDERED: OXYB-54 OR (14:19)
--- NOTE | 2019-12-28 14:51 | REP ---
Clinical: Pain Technique: AP, lateral, bilateral oblique views of the right hand. Findings: Early arthritic changes involving the interphalangeal joints including subchondral sclerosis, joint space narrowing, and marginal spurring noted. No acute fracture or dislocation. Impression: Early arthritic changes. Electronically Signed by Kelechi Gonzalez MD 12/28/2019 02:43 P
--- NOTE | 2019-12-28 14:52 | REP ---
Clinical: Pain. Technique: AP, lateral, bilateral oblique views. Findings: The carpal bones, surrounding osseous structures, soft tissues, and joint spaces are essentially age-appropriate. There is no evidence for acute fracture or dislocation. No subcutaneous emphysema or radiodense foreign body. Impression: Generalized age-related changes. No acute fracture or dislocation. Electronically Signed by Kelechi Gonzalez MD 12/28/2019 02:44 P
[2019-12-28] MEDS ORDERED: KETOROLAC TROMETHAMINE 10 MG TAB PO ONE (16:00)
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
[2019-12-28 16:55] VITALS: BP 143/70
== END 2019-12-28 17:01 | disposition home or self-care (01) ==
LOC: M ED 14:03 → EDBD 14:03 → M ED 17:01
DX: S63.601A Unspecified sprain of right thumb, initial encounter (principal); Y04.8XXA Assault by other bodily force, initial encounter; Y07.410 Brother, perpetrator of maltreatment and neglect; E11.9 Type 2 diabetes mellitus without complications; I10 Essential (primary) hypertension; J45.909 Unspecified asthma, uncomplicated; M32.9 Systemic lupus erythematosus, unspecified; F31.9 Bipolar disorder, unspecified; F42.9 Obsessive-compulsive disorder, unspecified; K58.9 Irritable bowel syndrome, unspecified; G62.9 Polyneuropathy, unspecified; K21.9 Gastro-esophageal reflux disease without esophagitis; Z79.899 Other long term (current) drug therapy; Z79.4 Long term (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 insulin; Z79.01 Long term (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 anticoagulants; Z88.5 Allergy status to narcotic agent

== ENCOUNTER 2020-01-16 08:58 | Emergency (ER) | payer MEDICARE, MEDICAID ==
[~2020-01-16] VITALS: Ht 170.2 cm; Wt 122.9 kg
[2020-01-16 08:58] VITALS: BP 150/66
[~2020-01-16 08:58] MED LIST changes: +OXYB-54 OR; +TRAZ-252 OR
[2020-01-16 09:55] LABS: INFLUENZA A AMPLIFICATION POSITIVE (NEGATIVE); INFLUENZA B AMPLIFICATION NEGATIVE (NEGATIVE)
[2020-01-16] MEDS ORDERED: ALBUTEROL SULFATE 2.5 MG/0.5 ML INH NEB SOLN NEB ONE (10:00)
[2020-01-16] MEDS ORDERED: ACETAMINOPHEN 500 MG TAB PO ONE (10:00)
--- NOTE | 2020-01-16 10:23 | REP ---
Chest x-ray: Two views. History: Cough times 1 week. Decreased on the right. Comparison chest x-ray: February 24, 2019. Findings: The lungs are symmetrically aerated and clear. Pleural angles are sharp. Heart is not enlarged. Pulmonary vasculature is not increased. No significant bony abnormality. Impression: No active disease. Electronically Signed by Delio Sylvester MD 01/16/2020 10:14 A
== END 2020-01-16 10:44 | disposition home or self-care (01) ==
LOC: M ED 08:58
DX: J09.X2 Influenza due to identified novel influenza A virus with other respiratory manifestations (principal); E11.9 Type 2 diabetes mellitus without complications; I10 Essential (primary) hypertension; J45.909 Unspecified asthma, uncomplicated; F33.9 Major depressive disorder, recurrent, unspecified; F41.9 Anxiety disorder, unspecified; F43.10 Post-traumatic stress disorder, unspecified; F42.9 Obsessive-compulsive disorder, unspecified; E78.5 Hyperlipidemia, unspecified; M32.9 Systemic lupus erythematosus, unspecified; K58.9 Irritable bowel syndrome, unspecified; Z79.899 Other long term (current) drug therapy; Z79.4 Long term (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 insulin; Z79.01 Long term (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 anticoagulants; Z88.5 Allergy status to narcotic agent; Z91.040 Latex allergy status

== ENCOUNTER → 2020-01-27 | Outpatient (CLI) | payer MEDICARE, MEDICAID ==
--- NOTE | 2020-01-27 16:16 | REPPI ---
Chest x-ray: Two views. History: Shortness of breath. Comparison chest x-ray January 16, 2020. Findings: The lungs are symmetrically aerated. No focal infiltrate is seen. Pleural angles are sharp. Heart size is normal. Pulmonary vasculature is not increased. Impression: No infiltrate seen. Electronically Signed by Delio Sylvester MD 01/27/2020 04:08 P
== END ==
LOC: M PLAIMG 15:17
PROVIDERS: ATTEND Internal Medicine
DX: R06.02 Shortness of breath (principal)
CPT/HCPCS: 71046; 87486; 87581; 87633; 87798; G0463; U0002

== ENCOUNTER → 2020-01-27 | Outpatient (REF) | payer MEDICARE, MEDICAID | LOC: M SFHCPLAZ 16:46 | PROVIDERS: ATTEND Internal Medicine | DX: R06.02 Shortness of breath (principal) | CPT/HCPCS: 87486; 87581; 87633; 87798; U0002 ==

== ENCOUNTER 2020-04-03 11:00 | Emergency (ER) | payer MEDICARE, MEDICAID ==
[~2020-04-03] VITALS: Ht 170.2 cm; Wt 120.2 kg
[2020-04-03 11:00] VITALS: BP 138/77
[~2020-04-03 11:00] MED LIST changes: +CYCL-707 PO; -CYCL10TA PO; -METF-723; +METF-723 PO
[2020-04-03] MEDS ORDERED: NYSTOI TOP (11:28)
[2020-04-03] MEDS ORDERED: DOXY100C37 PO (11:28)
[2020-04-03] MEDS ORDERED: cefTRIAXone SOD 2 GM VIAL (J0696 PER 250MG) IM ONE (11:30)
[2020-04-03] MEDS ORDERED: LIDOCAINE 1% SDV 5ML VIAL DILUENT ONE (11:30)
[2020-04-03 11:50] LABS: BASO # 0.1 10^3/uL (0.0-0.2); BASO % 0.5 % (0.0-1.0); EOS # 0.1 10^3/uL (0.0-0.5); EOS % 0.8 % (0.0-3.0); HEMATOCRIT 35.6 % (36.0-47.0); HEMOGLOBIN 11.8 g/dl (12.0-15.5); LYMPH # 2.6 10^3/uL (1.5-5.0); LYMPH % 24.3 % (24.0-44.0); MEAN CORPUSCULAR HGB CONC 33.1 g/dl (32.0-36.5); MEAN CORPUSCULAR VOLUME 87.5 fl (80.0-96.0); MONO # 0.3 10^3/uL (0.0-0.8); MONO % 2.8 % (0.0-5.0); NEUTROPHILS # 7.6 10^3/uL (1.5-8.5); PLATELET COUNT, AUTOMATED 324 10^3/uL (150-450); RED BLOOD COUNT 4.07 10^6/uL (4.00-5.40); WHITE BLOOD COUNT 10.6 10^3/uL (4.0-10.0)
[2020-04-03] MEDS ORDERED: WARF-23 PO (12:06)
[2020-04-03] MEDS ORDERED: ENOX120I3 INJ (12:06)
[2020-04-03 12:14] LABS: ALBUMIN 3.7 GM/DL (3.2-5.2); ALT/SGPT 33 U/L (12-78); BILIRUBIN,DIRECT 0.3 MG/DL (0.0-0.2); BILIRUBIN,TOTAL 0.8 MG/DL (0.2-1.0); BLOOD UREA NITROGEN 12 MG/DL (7-18); C REACTIVE PROTEIN QUANTITATIV 1.01 MG/DL (0.00-0.30); CALCIUM LEVEL 8.7 MG/DL (8.5-10.1); CARBON DIOXIDE LEVEL 27 MEQ/L (21-32); CHLORIDE LEVEL 105 MEQ/L (98-107); CREATININE FOR GFR 0.81 MG/DL (0.55-1.30); GLOMERULAR FILTRATION RATE > 60.0 (>51); GLUCOSE, FASTING 249 MG/DL (70-100); POTASSIUM SERUM 4.1 MEQ/L (3.5-5.1); SODIUM LEVEL 134 MEQ/L (136-145); TOTAL PROTEIN 7.7 GM/DL (6.4-8.2)
[2020-04-03 12:23] LABS: ERYTHROCYTE SEDIMENTATION RATE 48 mm/hr (0-30)
== END 2020-04-03 12:17 | disposition home or self-care (01) ==
LOC: M ED 11:00
DX: L03.311 Cellulitis of abdominal wall (principal); J45.909 Unspecified asthma, uncomplicated; G43.909 Migraine, unspecified, not intractable, without status migrainosus; F31.9 Bipolar disorder, unspecified; E10.9 Type 1 diabetes mellitus without complications; F42.9 Obsessive-compulsive disorder, unspecified; Z91.040 Latex allergy status; Z88.5 Allergy status to narcotic agent; Z79.4 Long term (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 insulin; Z79.01 Long term (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 anticoagulants; Z79.899 Other long term (current) drug therapy; K21.9 Gastro-esophageal reflux disease without esophagitis
CPT/HCPCS: 36415; 80048; 80076; 85025; 85652; 86140; 87040; 87070; 87077; 87186; 87205; 99282; J0696

== ENCOUNTER 2020-04-04 10:08 | Emergency (ER) | payer MEDICARE, MEDICAID ==
[~2020-04-04] VITALS: Ht 170.2 cm; Wt 120.6 kg
[~2020-04-04 10:08] MED LIST changes: +DOXY100C37 PO; +ENOX120I3 INJ; +NYSTOI TOP; +WARF-23 PO
[2020-04-04 11:10] VITALS: BP 119/58
== END 2020-04-04 11:12 | disposition home or self-care (01) ==
LOC: M ED 10:08
DX: B35.6 Tinea cruris (principal); G44.209 Tension-type headache, unspecified, not intractable; E78.00 Pure hypercholesterolemia, unspecified; I10 Essential (primary) hypertension; J45.909 Unspecified asthma, uncomplicated; K58.9 Irritable bowel syndrome, unspecified; K21.9 Gastro-esophageal reflux disease without esophagitis; Z87.442 Personal history of urinary calculi; E11.40 Type 2 diabetes mellitus with diabetic neuropathy, unspecified; K76.0 Fatty (change of) liver, not elsewhere classified; Z79.84 Long term (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 oral hypoglycemic drugs; Z86.718 Personal history of other venous thrombosis and embolism; Z79.899 Other long term (current) drug therapy; Z79.01 Long term (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 anticoagulants; Z79.4 Long term (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 insulin

== ENCOUNTER → 2020-04-07 | Outpatient (CLI) | payer MEDICARE, MEDICAID ==
--- NOTE | 2020-04-07 08:41 | REP ---
Duplex extremity venous ultrasound: Bilateral lower extremity. History: Bilateral lower extremity edema. Rule out DVT. Findings: The deep veins are anechoic and fully compressible from the groin to the popliteal fossa in the left and right lower extremity. Color flow imaging is homogeneous. Spectral Doppler interrogation demonstrates intact respiratory variation in flow and normal manual augmentation of flow. There is no evidence of deep vein thrombosis. Impression: Negative bilateral lower extremity duplex venous ultrasound. No evidence of deep vein thrombosis. Electronically Signed by Delio Sylvester MD 04/07/2020 08:33 A
== END ==
LOC: M WHC 06:48
PROVIDERS: ATTEND Internal Medicine Hematology & Oncology
DX: R60.0 Localized edema (principal); R25.2 Cramp and spasm

== ENCOUNTER → 2020-04-18 | Outpatient (REF) | payer MEDICARE, MEDICAID ==
[2020-04-18 11:31] LABS: INR 2.94; PROTHROMBIN TIME 30.6 SECONDS (11.8-14.0)
== END ==
LOC: M SFHCPLAZ 09:20
PROVIDERS: ATTEND Internal Medicine
DX: Z86.718 Personal history of other venous thrombosis and embolism (principal)

== ENCOUNTER → 2020-05-02 | Outpatient (CLI) | payer MEDICARE, MEDICAID ==
[2020-05-02 12:41] LABS: INR 3.52; PROTHROMBIN TIME 35.3 SECONDS (11.8-14.0)
[2020-05-02 13:00] LABS: ALBUMIN 3.5 GM/DL (3.2-5.2); ALT/SGPT 30 U/L (12-78); BILIRUBIN,TOTAL 0.2 MG/DL (0.2-1.0); BLOOD UREA NITROGEN 13 MG/DL (7-18); CALCIUM LEVEL 9.1 MG/DL (8.5-10.1); CARBON DIOXIDE LEVEL 28 MEQ/L (21-32); CHLORIDE LEVEL 104 MEQ/L (98-107); CHOLESTEROL LEVEL 234 MG/DL (<200); CHOLESTEROL RISK RATIO 4.588 (<5); CREATININE FOR GFR 0.67 MG/DL (0.55-1.30); GLOMERULAR FILTRATION RATE > 60.0 (>51); GLUCOSE, FASTING 207 MG/DL (70-100); HDL CHOLESTEROL 51 MG/DL (>40); LDL CHOLESTEROL 150 MG/DL (<100); NON-HDL-C 183 MG/DL; POTASSIUM SERUM 4.5 MEQ/L (3.5-5.1); SODIUM LEVEL 136 MEQ/L (136-145); TOTAL PROTEIN 7.4 GM/DL (6.4-8.2); TRIGLYCERIDES LEVEL 166 MG/DL (<150)
[2020-05-02 13:50] LABS: HEMOGLOBIN A1c 9.2 %
== END ==
LOC: M PLALAB 09:45
PROVIDERS: ATTEND Internal Medicine
DX: I10 Essential (primary) hypertension (principal); E78.5 Hyperlipidemia, unspecified; E11.51 Type 2 diabetes mellitus with diabetic peripheral angiopathy without gangrene; E55.9 Vitamin D deficiency, unspecified; Z86.718 Personal history of other venous thrombosis and embolism

== ENCOUNTER → 2020-05-02 | Outpatient (CLI) | payer MEDICARE, MEDICAID ==
[2020-05-02 12:25] LABS: BASO # 0.1 10^3/uL (0.0-0.2); BASO % 0.9 % (0.0-1.0); EOS # 0.2 10^3/uL (0.0-0.5); EOS % 2.9 % (0.0-3.0); HEMATOCRIT 37.5 % (36.0-47.0); HEMOGLOBIN 12.3 g/dl (12.0-15.5); LYMPH # 2.7 10^3/uL (1.5-5.0); LYMPH % 39.5 % (24.0-44.0); MEAN CORPUSCULAR HEMOGLOBIN 28.9 pg (27.0-33.0); MEAN CORPUSCULAR HGB CONC 32.8 g/dl (32.0-36.5); MONO # 0.4 10^3/uL (0.0-0.8); MONO % 5.5 % (0.0-5.0); NEUTROPHILS # 3.5 10^3/uL (1.5-8.5); NEUTROPHILS % 50.9 % (36.0-66.0); PLATELET COUNT, AUTOMATED 299 10^3/uL (150-450); RED BLOOD COUNT 4.26 10^6/uL (4.00-5.40); WHITE BLOOD COUNT 6.9 10^3/uL (4.0-10.0)
[2020-05-02 12:55] LABS: BLOOD UREA NITROGEN 13 MG/DL (7-18); CARBON DIOXIDE LEVEL 28 MEQ/L (21-32); CHLORIDE LEVEL 105 MEQ/L (98-107); CREATININE FOR GFR 0.73 MG/DL (0.55-1.30); GLOMERULAR FILTRATION RATE > 60.0 (>51); GLUCOSE, FASTING 205 MG/DL (70-100); POTASSIUM SERUM 4.6 MEQ/L (3.5-5.1); SODIUM LEVEL 138 MEQ/L (136-145)
== END ==
LOC: M PLALAB 09:41
PROVIDERS: ATTEND Internal Medicine Cardiovascular Disease
DX: E78.5 Hyperlipidemia, unspecified (principal); E11.9 Type 2 diabetes mellitus without complications; R06.02 Shortness of breath

== ENCOUNTER → 2020-05-02 | Outpatient (CLI) | payer MEDICARE, MEDICAID ==
[~2020-05-02] MED LIST changes: +ACET650T61 PO; +METF500T13 PO; +NORC1TAB7 PO; -TYLE650T35 PO
== END ==
LOC: M PLALAB 09:37
PROVIDERS: ATTEND Registered Nurse
DX: E53.8 Deficiency of other specified B group vitamins (principal)

== ENCOUNTER → 2020-05-02 | Outpatient (CLI) | payer MEDICARE, MEDICAID ==
[~2020-05-02] MED LIST changes: -ACET650T61 PO; -METF500T13 PO; -NORC1TAB7 PO; +TYLE650T35 PO
--- NOTE | 2020-05-02 16:18 | REPMRS ---
Patient History The patient states she has not had a clinical breast exam in over a year. Family history of endometrial cancer under age 50 in maternal grandmother, breast cancer under age 50 in maternal aunt, breast cancer under age 50 in maternal aunt, breast cancer under age 50 in maternal aunt, endometrial cancer under age 50 in maternal aunt, unknown cancer under age 50 in maternal cousin, unknown cancer under age 50 in maternal cousin, endometrial cancer under age 50 in maternal cousin, endometrial cancer under age 50 in maternal cousin, breast cancer under age 50 in maternal cousin, breast cancer under age 50 in maternal cousin, unknown cancer under age 50 in maternal aunt, unknown cancer under age 50 in maternal uncle, unknown cancer under age 50 in maternal uncle. Took hormonal contraceptives for 11 years. 3D TOMOSYNTHESIS WAS PERFORMED. [facility] risk for [facility] cancer is 11.3%. INA FIGUEROA A. Digital Woman Screen Mammo: May 02, 2020 - Exam #: [id number] Bilateral CC and MLO view(s) were taken. Technologist: Malka Amador, Sagarologist Prior study comparison: December 31, 2018, bilateral digital mammo screening bilat, performed at [facility]. December 26, 2017, bilateral digital mammo screening bilat, performed at [facility]. FINDINGS: There are scattered fibroglandular densities. There has been no change in the appearance of the mammogram from the prior studies. There is a mild amount of residual fibroglandular tissue which is fairly symmetric. There is no interval development of dominant mass, architectural distortion, or clustered microcalcification suggestive of malignancy. Assessment: BI-RADS/ACR category 1 mammogram. Negative Mammogram. Recommendation Routine screening mammogram in 1 year (for women over age 40). This mammogram was interpreted with the aid of an FDA-approved computer-aided dectection system. Electronically Signed By: Shawn Aguirre MD 05/02/20 [id number]
== END ==
LOC: M WHC 12:51
PROVIDERS: ATTEND Internal Medicine
DX: Z12.31 Encounter for screening mammogram for malignant neoplasm of breast (principal); Z80.3 Family history of malignant neoplasm of breast; Z80.49 Family history of malignant neoplasm of other genital organs; Z86.718 Personal history of other venous thrombosis and embolism; I10 Essential (primary) hypertension; E78.5 Hyperlipidemia, unspecified; E11.51 Type 2 diabetes mellitus with diabetic peripheral angiopathy without gangrene; E55.9 Vitamin D deficiency, unspecified; R06.02 Shortness of breath

== ENCOUNTER → 2020-05-16 | Outpatient (REF) | payer MEDICARE, MEDICAID ==
[~2020-05-16] MED LIST changes: +ACET650T61 PO; +METF500T13 PO; +NORC1TAB7 PO; -TYLE650T35 PO
[2020-05-16 14:22] LABS: INR 1.64; PROTHROMBIN TIME 19.2 SECONDS (11.8-14.0)
[2020-05-16 14:48] LABS: ALBUMIN 3.5 GM/DL (3.2-5.2); ALT/SGPT 27 U/L (12-78); BILIRUBIN,TOTAL 0.2 MG/DL (0.2-1.0); BLOOD UREA NITROGEN 13 MG/DL (7-18); CALCIUM LEVEL 8.9 MG/DL (8.5-10.1); CARBON DIOXIDE LEVEL 27 MEQ/L (21-32); CHLORIDE LEVEL 103 MEQ/L (98-107); CHOLESTEROL LEVEL 190 MG/DL (<200); CREATININE FOR GFR 0.74 MG/DL (0.55-1.30); GLOMERULAR FILTRATION RATE > 60.0 (>51); GLUCOSE, FASTING 287 MG/DL (70-100); HDL CHOLESTEROL 46 MG/DL (>40); LDL CHOLESTEROL 111 MG/DL (<100); NON-HDL-C 144 MG/DL; POTASSIUM SERUM 4.7 MEQ/L (3.5-5.1); SODIUM LEVEL 135 MEQ/L (136-145); TOTAL 25(OH) VITAMIN D 26.7 NG/ML (30.0-100.0); TOTAL PROTEIN 7.4 GM/DL (6.4-8.2); TRIGLYCERIDES LEVEL 164 MG/DL (<150)
[2020-05-16 14:57] LABS: CREATININE, URINE 82.4 MG/DL; MALB URINE SIEMENS 7.9 MG/L; MAU/CREAT RATIO 9.5 MCG/MG (0.0-30.0)
[2020-05-16 19:09] LABS: HEMOGLOBIN A1c 9.3 %
== END ==
LOC: M PLALAB 12:31
PROVIDERS: ATTEND Internal Medicine
DX: E11.51 Type 2 diabetes mellitus with diabetic peripheral angiopathy without gangrene (principal); I10 Essential (primary) hypertension; E78.5 Hyperlipidemia, unspecified; Z86.718 Personal history of other venous thrombosis and embolism; E55.9 Vitamin D deficiency, unspecified; Z79.01 Long term (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 anticoagulants; Z79.899 Other long term (current) drug therapy

== ENCOUNTER → 2020-05-24 | Outpatient (CLI) | payer MEDICARE, MEDICAID | LOC: M LABSMTC 10:19 | PROVIDERS: ATTEND Internal Medicine Cardiovascular Disease | DX: Z11.59 Encounter for screening for other viral diseases (principal) | CPT/HCPCS: C9803; U0003 ==

== ENCOUNTER → 2020-06-07 | Outpatient (CLI) | payer MEDICARE, MEDICAID | LOC: M LABSMTC 10:15 | PROVIDERS: ATTEND Internal Medicine Cardiovascular Disease | DX: Z20.828 Contact with and (suspected) exposure to other viral communicable diseases (principal); Z79.01 Long term (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 anticoagulants | CPT/HCPCS: 36415; 80048; 85025; 85610; C9803; U0002 ==

== ENCOUNTER → 2020-06-07 | Outpatient (REF) | payer MEDICARE, MEDICAID ==
[2020-07-03 09:06] LABS: INR 3.29; PROTHROMBIN TIME 34.2 SECONDS (11.8-14.0)
[2020-07-03 09:15] LABS: BASO # 0.1 10^3/uL (0.0-0.2); BASO % 0.8 % (0.0-1.0); EOS # 0.2 10^3/uL (0.0-0.5); EOS % 2.8 % (0.0-3.0); HEMATOCRIT 39.6 % (36.0-47.0); HEMOGLOBIN 12.8 g/dl (12.0-15.5); LYMPH # 3.4 10^3/uL (1.5-5.0); LYMPH % 39.8 % (24.0-44.0); MEAN CORPUSCULAR HEMOGLOBIN 28.4 pg (27.0-33.0); MEAN CORPUSCULAR HGB CONC 32.3 g/dl (32.0-36.5); MEAN CORPUSCULAR VOLUME 87.8 fl (80.0-96.0); MONO # 0.4 10^3/uL (0.0-0.8); MONO % 4.7 % (0.0-5.0); NEUTROPHILS # 4.4 10^3/uL (1.5-8.5); NEUTROPHILS % 51.7 % (36.0-66.0); PLATELET COUNT, AUTOMATED 327 10^3/uL (150-450); RED BLOOD COUNT 4.51 10^6/uL (4.00-5.40); WHITE BLOOD COUNT 8.6 10^3/uL (4.0-10.0)
[2020-07-13 07:18] LABS: BLOOD UREA NITROGEN 10 MG/DL (7-18); CALCIUM LEVEL 8.8 MG/DL (8.5-10.1); CARBON DIOXIDE LEVEL 29 MEQ/L (21-32); CHLORIDE LEVEL 105 MEQ/L (98-107); CREATININE FOR GFR 0.72 MG/DL (0.55-1.30); GLOMERULAR FILTRATION RATE > 60.0 (>51); GLUCOSE, FASTING 204 MG/DL (70-100); POTASSIUM SERUM 4.6 MEQ/L (3.5-5.1); SODIUM LEVEL 137 MEQ/L (136-145)
== END ==
LOC: M SFHCPLAZ 08:39
PROVIDERS: ATTEND Internal Medicine
DX: E78.5 Hyperlipidemia, unspecified (principal); I10 Essential (primary) hypertension; I25.119 Atherosclerotic heart disease of native coronary artery with unspecified angina pectoris

== ENCOUNTER → 2020-07-05 | Outpatient (CLI) | payer MEDICARE, MEDICAID ==
[2020-07-05 17:34] LABS: INR 2.28; PROTHROMBIN TIME 25.6 SECONDS (11.8-14.0)
[2020-07-05 17:36] LABS: ALBUMIN 3.6 GM/DL (3.2-5.2); ALT/SGPT 22 U/L (12-78); BILIRUBIN,TOTAL 0.4 MG/DL (0.2-1.0); BLOOD UREA NITROGEN 10 MG/DL (7-18); CALCIUM LEVEL 8.9 MG/DL (8.5-10.1); CARBON DIOXIDE LEVEL 29 MEQ/L (21-32); CHLORIDE LEVEL 106 MEQ/L (98-107); CREATININE FOR GFR 0.74 MG/DL (0.55-1.30); GLOMERULAR FILTRATION RATE > 60.0 (>51); GLUCOSE, FASTING 183 MG/DL (70-100); POTASSIUM SERUM 4.4 MEQ/L (3.5-5.1); SODIUM LEVEL 138 MEQ/L (136-145); TOTAL PROTEIN 7.2 GM/DL (6.4-8.2)
== END ==
LOC: M PLALAB 15:33
PROVIDERS: ATTEND Nurse Practitioner Adult Health
DX: R60.0 Localized edema (principal); I10 Essential (primary) hypertension; Z86.718 Personal history of other venous thrombosis and embolism
CPT/HCPCS: 36415; 80053; 85610; G0463

== ENCOUNTER → 2020-07-10 | Outpatient (CLI) | payer MEDICARE, MEDICAID ==
[2020-07-10 13:32] LABS: BLOOD UREA NITROGEN 15 MG/DL (7-18); CALCIUM LEVEL 8.7 MG/DL (8.5-10.1); CARBON DIOXIDE LEVEL 32 MEQ/L (21-32); CHLORIDE LEVEL 104 MEQ/L (98-107); CREATININE FOR GFR 0.83 MG/DL (0.55-1.30); GLOMERULAR FILTRATION RATE > 60.0 (>51); GLUCOSE, FASTING 184 MG/DL (70-100); POTASSIUM SERUM 4.2 MEQ/L (3.5-5.1); SODIUM LEVEL 138 MEQ/L (136-145)
== END ==
LOC: M PLALAB 09:07
PROVIDERS: ATTEND Nurse Practitioner Adult Health
DX: R60.0 Localized edema (principal)
CPT/HCPCS: 36415; 80048; G0463

== ENCOUNTER → 2020-07-19 | Outpatient (CLI) | payer MEDICARE, MEDICAID ==
[2020-07-25 15:12] LABS: PROTEIN C ANTIGEN 45 % (60-150); PROTEIN S ANTIGEN FREE 38 % (57-157); PROTEIN S ANTIGEN TOTAL 43 % (60-150)
== END ==
LOC: M PLALAB 13:09
PROVIDERS: ATTEND Surgery
DX: E11.621 Type 2 diabetes mellitus with foot ulcer (principal); L97.522 Non-pressure chronic ulcer of other part of left foot with fat layer exposed; I87.311 Chronic venous hypertension (idiopathic) with ulcer of right lower extremity; L97.812 Non-pressure chronic ulcer of other part of right lower leg with fat layer exposed
CPT/HCPCS: 11042; 36415; 81241; 85302; 85305; 85306; G0463

== ENCOUNTER 2020-08-06 21:47 | Emergency (ER) | payer MEDICARE, MEDICAID ==
[~2020-08-06] VITALS: Ht 170.2 cm; Wt 127.0 kg
[~2020-08-06 21:47] MED LIST changes: -METF500T13 PO; -NORC1TAB7 PO
[2020-08-06 21:48] VITALS: BP 146/84
[2020-08-07] MEDS ORDERED: METF500T13 PO (10:28)
== END 2020-08-06 21:55 | disposition left against medical advice (07) ==
LOC: M ED 21:47
DX: Z53.21 Procedure and treatment not carried out due to patient leaving prior to being seen by health care provider (principal)

== ENCOUNTER 2020-08-07 09:57 | Emergency (ER) | payer MEDICARE, MEDICAID ==
[~2020-08-07] VITALS: Ht 170.2 cm; Wt 125.0 kg
[2020-08-07] MEDS ORDERED: METF500T13 PO (10:28)
--- NOTE | 2020-08-07 11:10 | REPVR ---
PROCEDURE INFORMATION: Exam: CT Cervical Spine Without Contrast Exam date and time: 08/07/2020 10:36 AM Age: 50 years old Clinical indication: Injury or trauma; Fall; Initial encounter; Blunt trauma; Additional info: Trauam on warfarin TECHNIQUE: Imaging protocol: Computed tomography images of the cervical spine without contrast. Radiation optimization: All CT scans at this facility use at least one of these dose optimization techniques: automated exposure control; mA and/or kV adjustment per patient size (includes targeted exams where dose is matched to clinical indication); or iterative reconstruction. COMPARISON: CT Spine,cervical w/o contrast 07/05/2017 10:31 PM FINDINGS: Vertebrae: No acute bony injury or malalignment in the cervical spine. Discs/Spinal canal/Neural foramina: No acute findings. Soft tissues: Unremarkable. Lungs: Mild apical airspace disease. IMPRESSION: No acute bony injury or malalignment in the cervical spine. Electronically signed by: Kunal Gtz On 08/07/2020 11:10:11 AM
--- NOTE | 2020-08-07 11:12 | REPVR ---
PROCEDURE INFORMATION: Exam: CT Head Without Contrast Exam date and time: 08/07/2020 10:36 AM Age: 50 years old Clinical indication: Injury or trauma; Fall; Initial encounter; Blunt trauma (contusions or hematomas); Consciousness not specified; Additional info: Trauam on warfarin TECHNIQUE: Imaging protocol: Computed tomography of the head without contrast. Radiation optimization: All CT scans at this facility use at least one of these dose optimization techniques: automated exposure control; mA and/or kV adjustment per patient size (includes targeted exams where dose is matched to clinical indication); or iterative reconstruction. COMPARISON: CT Head without contrast 02/24/2019 12:36 PM FINDINGS: Brain: Symmetric caliber of the cortical sulci. Mild small vessel ischemic change. Dural calcifications. No acute post-traumatic brain injury. Cerebral ventricles: Normal configuration of the ventricles. Bones/joints: No acute calvarial injury. Paranasal sinuses: No sinus fluid. Mastoid air cells: No mastoid effusion. Soft tissues: No significant scalp hematoma. IMPRESSION: No acute post-traumatic brain injury. Electronically signed by: Kunal Gtz On 08/07/2020 11:12:22 AM
--- NOTE | 2020-08-07 11:49 | REPVR ---
PROCEDURE INFORMATION: Exam: XR Left Wrist Exam date and time: 08/07/2020 11:31 AM Age: 50 years old Clinical indication: Pain and injury or trauma; Fall; Initial encounter; Sprain or strain; Wrist; Left; Patient HX: PT fell TECHNIQUE: Imaging protocol: XR Left wrist. Views: 3 or more views. COMPARISON: CR Wrist, complete 07/05/2017 10:33 PM FINDINGS: Bones/joints: Mild degenerative change. No acute bony injury or malalignment. Soft tissues: No radiopaque foreign body. IMPRESSION: No acute bony injury or malalignment. Electronically signed by: Kunal Gtz On 08/07/2020 11:48:32 AM
[2020-08-07 12:30] VITALS: BP 148/73
== END 2020-08-07 13:10 | disposition home or self-care (01) ==
LOC: M ED 09:57 → EDSEX 09:57 → EDBD 09:57 → M ED 13:10
DX: S63.502A Unspecified sprain of left wrist, initial encounter (principal); S43.402A Unspecified sprain of left shoulder joint, initial encounter; W01.0XXA Fall on same level from slipping, tripping and stumbling without subsequent striking against object, initial encounter; Y92.410 Unspecified street and highway as the place of occurrence of the external cause; Y93.K1 Activity, walking an animal; M54.2 Cervicalgia; M25.552 Pain in left hip; R07.81 Pleurodynia; E11.621 Type 2 diabetes mellitus with foot ulcer; L97.524 Non-pressure chronic ulcer of other part of left foot with necrosis of bone; I10 Essential (primary) hypertension; E78.5 Hyperlipidemia, unspecified; G43.909 Migraine, unspecified, not intractable, without status migrainosus; Z86.718 Personal history of other venous thrombosis and embolism; Z87.891 Personal history of nicotine dependence; Z79.01 Long term (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 anticoagulants; Z79.51 Long term (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 inhaled steroids; Z79.899 Other long term (current) drug therapy; Z91.040 Latex allergy status

== ENCOUNTER 2020-08-11 10:17 | Emergency (ER) | payer MEDICARE, MEDICAID ==
[~2020-08-11] VITALS: Ht 170.2 cm; Wt 125.9 kg
[~2020-08-11 10:17] MED LIST changes: +METF500T13 PO
[2020-08-11 11:01] LABS: BASO # 0.1 10^3/uL (0.0-0.2); BASO % 0.8 % (0.0-1.0); EOS # 0.2 10^3/uL (0.0-0.5); EOS % 1.9 % (0.0-3.0); HEMATOCRIT 39.1 % (36.0-47.0); HEMOGLOBIN 12.8 g/dl (12.0-15.5); LYMPH # 3.3 10^3/uL (1.5-5.0); LYMPH % 32.2 % (24.0-44.0); MEAN CORPUSCULAR HEMOGLOBIN 28.5 pg (27.0-33.0); MEAN CORPUSCULAR HGB CONC 32.7 g/dl (32.0-36.5); MEAN CORPUSCULAR VOLUME 87.1 fl (80.0-96.0); MONO # 0.5 10^3/uL (0.0-0.8); MONO % 4.8 % (0.0-5.0); NEUTROPHILS # 6.2 10^3/uL (1.5-8.5); NEUTROPHILS % 60.1 % (36.0-66.0); PLATELET COUNT, AUTOMATED 292 10^3/uL (150-450); RED BLOOD COUNT 4.49 10^6/uL (4.00-5.40); WHITE BLOOD COUNT 10.2 10^3/uL (4.0-10.0)
[2020-08-11 11:13] LABS: INR 2.7; PROTHROMBIN TIME 29.3 SECONDS (12.5-14.3)
[2020-08-11 11:14] LABS: PARTIAL THROMBOPLASTIN TIME 47.7 SECONDS (24.2-38.5)
[2020-08-11 11:37] LABS: ALBUMIN 3.5 GM/DL (3.2-5.2); ALT/SGPT 25 U/L (12-78); BILIRUBIN,DIRECT 0.1 MG/DL (0.0-0.2); BILIRUBIN,TOTAL 0.4 MG/DL (0.2-1.0); BLOOD UREA NITROGEN 14 MG/DL (7-18); C REACTIVE PROTEIN QUANTITATIV 1.06 MG/DL (0.00-0.30); CARBON DIOXIDE LEVEL 27 MEQ/L (21-32); CHLORIDE LEVEL 105 MEQ/L (98-107); CREATININE FOR GFR 0.84 MG/DL (0.55-1.30); GLOMERULAR FILTRATION RATE > 60.0 (>51); GLUCOSE, FASTING 280 MG/DL (70-100); POTASSIUM SERUM 4.3 MEQ/L (3.5-5.1); SODIUM LEVEL 136 MEQ/L (136-145); TOTAL PROTEIN 7.5 GM/DL (6.4-8.2)
[2020-08-11 11:42] LABS: ERYTHROCYTE SEDIMENTATION RATE 39 mm/hr (0-30)
[2020-08-11] MEDS ORDERED: NORCO, ANEXSIA 5/325MG TABLET (HYDROcodone/ACETAMINOPHEN) PO ONE (12:15)
[2020-08-11] MEDS ORDERED: NORC1TAB7 PO (12:22)
[2020-08-11 12:34] VITALS: BP 141/75
== END 2020-08-11 12:35 | disposition home or self-care (01) ==
LOC: M ED 10:17
DX: L97.429 Non-pressure chronic ulcer of left heel and midfoot with unspecified severity (principal); F31.9 Bipolar disorder, unspecified; E78.5 Hyperlipidemia, unspecified; E11.9 Type 2 diabetes mellitus without complications; I10 Essential (primary) hypertension; K21.9 Gastro-esophageal reflux disease without esophagitis; Z79.01 Long term (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 anticoagulants; Z79.4 Long term (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 insulin; Z79.51 Long term (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 inhaled steroids; Z79.899 Other long term (current) drug therapy; Z87.891 Personal history of nicotine dependence; Z88.6 Allergy status to analgesic agent; Z91.018 Allergy to other foods; Z91.040 Latex allergy status

== ENCOUNTER → 2020-08-22 | Outpatient (REF) | payer MEDICARE, MEDICAID ==
[~2020-08-22] MED LIST changes: +NORC1TAB7 PO
[2020-08-22 17:39] LABS: INR 2.38; PROTHROMBIN TIME 26.6 SECONDS (12.5-14.3)
[2020-08-22 17:46] LABS: HEMOGLOBIN A1c 9.6 %
[2020-08-22 17:56] LABS: BLOOD UREA NITROGEN 13 MG/DL (7-18); CALCIUM LEVEL 9.1 MG/DL (8.5-10.1); CARBON DIOXIDE LEVEL 28 MEQ/L (21-32); CHLORIDE LEVEL 102 MEQ/L (98-107); CREATININE FOR GFR 0.84 MG/DL (0.55-1.30); GLOMERULAR FILTRATION RATE > 60.0 (>51); GLUCOSE, FASTING 292 MG/DL (70-100); POTASSIUM SERUM 4.4 MEQ/L (3.5-5.1); SODIUM LEVEL 135 MEQ/L (136-145)
== END ==
LOC: M SFHCPLAZ 14:35
PROVIDERS: ATTEND Family Medicine
DX: E11.51 Type 2 diabetes mellitus with diabetic peripheral angiopathy without gangrene (principal); I10 Essential (primary) hypertension; Z86.718 Personal history of other venous thrombosis and embolism; Z79.899 Other long term (current) drug therapy
CPT/HCPCS: 36415; 80048; 83036; 85610; G0463

== ENCOUNTER → 2020-09-13 | Outpatient (CLI) | payer MEDICARE, MEDICAID ==
[2020-09-13 14:13] LABS: INR 2.32
== END ==
LOC: M PLALAB 11:18
PROVIDERS: ATTEND Internal Medicine
DX: Z86.718 Personal history of other venous thrombosis and embolism (principal); Z79.899 Other long term (current) drug therapy
CPT/HCPCS: 36415; 85610; G0463

== ENCOUNTER → 2020-09-27 | Outpatient (REF) | payer MEDICARE, MEDICAID ==
[2020-09-27 13:56] LABS: INR 1.14; PROTHROMBIN TIME 14.9 SECONDS (12.5-14.3)
== END ==
LOC: M PLALAB 09:30
PROVIDERS: ATTEND Internal Medicine
DX: Z86.718 Personal history of other venous thrombosis and embolism (principal); Z79.01 Long term (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 anticoagulants; Z79.899 Other long term (current) drug therapy

== ENCOUNTER → 2020-10-02 | Outpatient (REF) | payer MEDICARE, MEDICAID ==
[2020-10-02 14:06] LABS: INR 2.57; PROTHROMBIN TIME 28.2 SECONDS (12.5-14.3)
== END ==
LOC: M PLALAB 11:20
PROVIDERS: ATTEND Internal Medicine
DX: Z86.718 Personal history of other venous thrombosis and embolism (principal); Z79.899 Other long term (current) drug therapy; Z79.01 Long term (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 anticoagulants

== ENCOUNTER → 2020-10-03 | Outpatient (CLI) | payer MEDICARE, MEDICAID ==
--- NOTE | 2020-10-03 16:32 | REP ---
INDICATION: R25.2 R/O DVT RIGHT STAT - CALL [phone] COMPARISON: None. TECHNIQUE: Real time compression and duplex Doppler interrogation of the right lower extremity deep venous system is performed. FINDINGS: The right common femoral, superficial femoral and popliteal veins are fully compressible with transducer pressure and demonstrate normal spontaneous and phasic flow, without evidence of deep venous thrombosis. IMPRESSION: No evidence of deep venous thrombosis of the right lower extremity femoral popliteal venous system. <Electronically signed by Shawn Aguirre > 10/03/20 [id number]
== END ==
LOC: M PLAIMG 15:43
PROVIDERS: ATTEND Nurse Practitioner Adult Health
DX: R25.2 Cramp and spasm (principal); Z86.718 Personal history of other venous thrombosis and embolism
CPT/HCPCS: 93971; G0463

== ENCOUNTER → 2020-10-16 | Outpatient (REF) | payer MEDICARE, MEDICAID ==
[2020-10-16 10:40] LABS: INR 2.15; PROTHROMBIN TIME 24.5 SECONDS (12.5-14.3)
== END ==
LOC: M PLALAB 08:57
PROVIDERS: ATTEND Internal Medicine
DX: Z86.718 Personal history of other venous thrombosis and embolism (principal); Z79.899 Other long term (current) drug therapy

== ENCOUNTER → 2020-11-08 | Outpatient (CLI) | payer MEDICARE, MEDICAID | LOC: M LABSMTC 12:24 | PROVIDERS: ATTEND Family Medicine | DX: Z20.828 Contact with and (suspected) exposure to other viral communicable diseases (principal) ==

== ENCOUNTER → 2020-11-15 | Outpatient (CLI) | payer MEDICARE, MEDICAID ==
[~2020-11-15] MED LIST changes: +GABA-282 PO; -GABA-843 PO
--- NOTE | 2020-11-15 17:37 | REP ---
INDICATION: PAIN IN RT KNEE. COMPARISON: 04/04/2020. TECHNIQUE: Multiple sequences obtained in the axial, coronal and sagittal planes. FINDINGS: Menisci: There is diffuse fraying of the central aspect of the posterior horn of the lateral meniscus. The medial meniscus is intact. Cruciate ligaments: Intact. Collateral ligaments: Intact. Extensor mechanism/patellar retinacula: Intact. Cartilage: There is mild chondromalacia of the medial patellar facet. There is mild global chondromalacia of the femoral condyles and tibial plateaus. No focal osteochondral defect is seen. Bone marrow: Normal signal, no edema or occult fracture. Joint fluid: There is a mild to moderate joint effusion. Popliteal region: No cyst. There is a suprapatellar plica. IMPRESSION: No significant change when compared to the prior study. There is diffuse fraying of the central aspect of the posterior horn the lateral meniscus. Cruciate and collateral ligaments intact. Mild global chondromalacia as discussed above. Mild to moderate joint effusion. Suprapatellar plica. <Electronically signed by Shawn Aguirre > 11/15/20 [id number]
== END ==
LOC: M RAD 15:27
PROVIDERS: ATTEND Orthopaedic Surgery Sports Medicine
DX: M25.461 Effusion, right knee (principal); M25.561 Pain in right knee
CPT/HCPCS: 73721; G0463

== ENCOUNTER 2020-11-26 16:43 | Emergency (ER) | payer MEDICARE, MEDICAID ==
[~2020-11-26] VITALS: Ht 170.2 cm; Wt 117.2 kg
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
--- OUTSIDE RECORDS SUMMARY | 2020-11-26 16:53 | CCD | Continuity of Care Document ---
Author Author Ayaka WARREN MD Organization Unknown Address [address] [place] [address], [address] [place] [address] Phone [phone] Care Team Providers Care Packing And Final Assembly Supervisor Name Role Phone Agustin Boogie M.D. AUTM [phone] Jasmin Roque M.D. AUTM [phone] AUTM Unavailable [facility] AUTM [phone] Problems Active Problems Provider Date Allergic asthma without status asthmaticus Den Major MD Onset: 03/27/2015 Impacted cerumen Den Major MD Onset: 01/02/2016 Neoplasm of uncertain behavior of skin Den Major MD O nset: 01/02/2016 Chronic tonsillitis Den Major MD Onset: 01/02/2016 Sleep apnea Lory Saleh M.D. Onset: Disturbance of consciousness Lory Saleh M.D. O nset: 05/28/2016 Gastroesophageal reflux disease Kelli Booker Onset: 05/28/2016 Ex-smoker Lory Saleh M.D. Onset: Other insomnia not due to a substance or known physiol ogical condition Lory Saleh M.D. Onset: 05/28/2016 Social History Type Date Description Comments Sex Unknown ETOH Use Sociable ETOH Use Sociable Tobacco Use Start: Unknown End: Unknown Patient is a former smoker hx: 1 1/2ppd x 12 yrs, quit 2002 Recreational Drug Use Current Drug User Smoking Status Reviewed: 04/12/20 Patient is a former smoker hx : 1 1/2ppd x 12 yrs, quit 2002 Exercise Type/Frequency Exercises regularly Allergies, Adverse Reactions, Alerts Active Allergies Reaction Severity Comments Date Dilaudid 08/09/2014 Latex 03/27/2015 Medications Active Medications SIG Qnty Indications Ordering Provide r Date Gelsyn-3 16.8mg/2ML Soln Prefill S yringe right knee #1 10/16/20 swm/cp right knee #2 10/24/2020 swm/ag, right knee #3 swm/ag 10/31/2020. Kevin Warren MD 10/16/2020 Oxybutynin Chloride ER 5mg Tablets ER 24HR 1 by mouth every day 30tabs Cathy Santana MD 12/16 Crestor 20mg Tablets 1 by mouth every day Unknown Humalog 100Unit/ML Solution sliding scale tid Unknown Omeprazole 40mg Capsules DR 1 tab by mouth every day before meals Unknown 0 Ambien 10mg Tablets 1 by mouth every night at bedtime Unknown Toujeo Max Solostar 300Unit/ML Solution Pen-Inject Unknown Tramadol HCL 50mg Tablets 1-2 every 6 hours as needed for pain after surgery Unknown Trazodone HCL 50mg Tablets Unknown Metformin HCL 1000mg Tablets Unknown Losartan Potassium/Hydrochlorothiazide 100-25mg Tablets every day Unknown Immunizations Description No Information Available Vital Signs Date Vital Result Comment 10/16/2020 8:17am Body Temperature 96.7 F 03/15/2020 10:26am Body Temperature 97.2 F Height 67 inches 5'7" Weight 265.00 lb BMI (Body Mass Index) 41.5 kg/m2 Dixon Body Weight 135 lb Weight 120.204 kg BSA (Body Surface Area) 2.28 m2 Results Description No Information Available Procedures Date Code Description Status 10/31/2020 Inject/Drain Arthrocentesis Halina r Joint/Bursa/Ganglion Cyst Completed 10/24/2020 Inject/Drain Arthrocentesis Halina r Joint/Bursa/Ganglion Cyst Completed 10/16/2020 Inject/Drain Arthrocentesis Halina r Joint/Bursa/Ganglion Cyst Completed Medical Devices Description No Information Available Encounters Type Date Location Provider Dx Diagnosis Office Visit 10/31/2020 8:40a [facility] Kevin Warren MD Office Visit 10/24/2020 8:00a [facility] Kevin Warren MD M17.11 Unilateral primary osteoarthritis, right knee Assessments Date Code Description Provider 10/24/2020 M17.11 Unilateral primary osteoarthriti s, right knee Kevin Warren MD 10/16/2020 M17.11 Unilateral primary osteoarthriti s, right knee Kevin Warren MD 10/16/2020 M25.561 Pain in right knee Kevin fenton MD Plan of Treatment No Information Available Functional Status Functional Condition Comment Date Status Independent with all ADL's Activ e Independent with all IADL's Acti ve Mental Status Mental Condition Comment Date Status Cognitive ability not impaired A ctive Referrals Refer to Reason for Referral Status Appt Kevin Warren MD MRI RT KNEE PER DYNEE W NO AUTH REQUIRED. CASE #[id number]. LS Created [address] [place] [address] [phone] Kevin Warren MD [facility] 3 [id number] RIGHT KNEE APPROVED AUTH [id number], AUTH [employer] 11-09-20, SENT TO [facility] WilsonLD Created [address] [place] [address] [phone]
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
--- OUTSIDE RECORDS SUMMARY | 2020-11-26 16:53 | CCD | Continuity of Care Document ---
Author Author Ayaka WARREN MD Organization Unknown Address [address] [place] [address], [address] [place] [address] Phone [phone] Care Team Providers Care Locomotive Mechanic Name Role Phone Agustin Boogie M.D. AUTM [phone] Jasmin Roque M.D. AUTM [phone] AUTM Unavailable [facility] AUTM [phone] Problems Active Problems Provider Date Allergic asthma [...] #1 10/16/20 swm/cp right knee #2 10/24/2020 SWM/Ag, Kevin Warren MD 10/16/2020 Oxybutynin Chloride ER [...] lb BMI (Body Mass Index) 41.5 kg/m2 [place] Body Weight 135 lb Weight 120.204 kg BSA (Body Surface Area) 2.28 m2 Results Description No Information Available Procedures Date Code Description Status 10/16/2020 53711 Inject/Drain Arthrocentesis Halina r Joint/Bursa/Ganglion Cyst Completed Medical Devices Description No Information Available Encounters Description No Information Available Assessments Date Code Description Provider 10/16/2020 M17.11 Unilateral primary osteoarthriti s, right knee Kevin Warren MD 10/16/2020 M25.561 Pain in right knee Kevin fenton MD Plan of Treatment Future Appointment(s):* 10/31/2020 8:40 am - Kevin Warren MD at [facility] 10/16/2020 - Kevin Warren MD* M17.11 Unilateral primary osteoarthritis, right knee * M25.561 Pain in right knee* New Xrays:* MRI Right Knee, Ordered: 10/16/20 * Follow up:* with swm for next inj *after mri with swm Functional Status Functional Condition Comment Date Status Independent with all ADL's Activ e Independent with all IADL's Acti ve Mental Status Mental Condition Comment Date Status Cognitive ability not impaired A ctive Referrals Refer to Dr Reason for Referral Status Appt Date Kevin Warren MD MRI RT KNEE PER DYNEE W NO AUTH REQUIRED. CASE #[id number]. LS Created [address] [facility], [place] [address] [phone] Kevin Warren MD [facility] 3 [id number], [id number] RIGHT KNEE APPROVED AUTH [id number], AUTH [employer] 11-09-20, SENT TO SAUNDRA WilsonLD Created [address] [facility], [place] [address] [phone]
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
--- OUTSIDE RECORDS SUMMARY | 2020-11-26 16:53 | CCD | Summary of Care ---
Author Author [facility] Address Unknown Phone Unavailable Care Team Providers Care Drum Filler Name Role Phone Agustin Boogie MD PCP Reason for Visit * Reason Comments Diabetes Encounter Details Care Team Description Date Type Department Riaz Fisher PA [address] [place], [place] [id number] Type 2 diabetes mellitus with hypoglycem ia unawareness (Primary Dx); Type 2 diabetes mellitus with peripheral neuropathy; Type 2 diabetes mellitus with hyperglycemia, with long-term current use of insulin; Obesity (BMI 30-39.9); Insulin long-term use 11/14/2020 Telemedicine [facility] [address] [place] [id number] Allergies Comments Active Allergy Reactions Severity Noted Date Hydromorphone Hcl Anaphylaxis High 01/12/2016 Latex Rash Low 01/12/2016 documented as of this encounter (statuses as of 11/14/2020) Medications End Date Status Medication Sig Dispensed Refills Start Date Active lidocaine (LIDODERM) 5 % Place 1 patch 0 onto the skin every 24 (twenty-four) hours. Active spironolactone Take 25 mg by 0 (ALDACTONE) 25 MG tablet mouth daily. Active Vitamin D, Take 50,000 0 Ergocalciferol, 15413 Units by UNITS CAPS mouth every other day. Active busPIRone (BUSPAR) 10 MG Take 20 mg by 0 tablet mouth Three times daily Active omeprazole (PRILOSEC) 40 Take 40 mg by 0 MG capsule mouth daily. Active rosuvastatin (CRESTOR) 20 daily 0 06/1 0/201 MG tablet 8 Active gabapentin (NEURONTIN) Take 1 0 10/10/2 01 300 MG capsule capsule by 8 mouth Take one capsule with breakfast ,one cap with lunch, and two capsules at bedtime Active tramadol (ULTRAM) 50 MG TAKE ONE 0 tablet TABLET BY 8 MOUTH EVERY 12 HOURS NEEDED FOR PAIN SEVERE MAXIMUM DAILY DOSE 2 Active zolpidem (AMBIEN) 5 MG TAKE ONE 0 tablet TABLET BY 8 MOUTH ONCE A DAY AT BEDTIME NEEDED FOR INSOMNIA MAXIMUM DAILY DOSE 1 TABLET Active losartan (COZAAR) 50 MG Take 50 mg by 0 tablet mouth daily Active ONETOUCH VERIO test Use as 200 each stripIndications: Type 2 instructed 6 8 diabetes mellitus with times daily hyperglycemia, with long-term current use of insulin Active OneTouch (DELICA) MISC Use as 200 each fine lancetsIndications: directed 6 8 Type 2 diabetes mellitus times daily with hyperglycemia, with long-term current use of insulin Active ciclopirox (PENLAC) 8 % daily 3 solution 9 Active sumatriptan (IMITREX) 50 as needed 1 03/13 MG tablet 9 Active glucagon (GLUCAGON Inject 1 mg 2 each 1 EMERGENCY) 1 MG IM as 9 injectionIndications: directed as Type 2 diabetes mellitus needed. DX with hyperglycemia, with E11.65 long-term current use of insulin Active traZODone HCl 50 MG Oral TAKE ONE 08/28 Tablet (DESYREL) TABLET BY 9 MOUTH ONCE A DAY AT BEDTIME NEEDED Active Ondansetron 4 MG Oral DISSOLVE ONE 1 08/11/20 1 Tablet Disintegrating TABLET ON 9 (ZOFRAN-ODT) TONGUE EVERY 6 HOURS NEEDED FOR NAUSEA Active Insulin Lispro (1 Unit Inject subq 3 60 mL 1 1 Dial) 100 UNIT/ML times daily 9 Subcutaneous Solution per insulin Pen-injector (HUMALOG orders. Max KWIKPEN)Indications: Type Daily Dose: 2 diabetes mellitus with 55 units hyperglycemia, with inclusive of long-term current use of priming and insulin titiration. Dx code: E11.65 Active Vitamin B-[address] under 0 Sublingual Tablet the tongue Sublingual daily Active Pediatric Multiple Take by mouth 0 Vit-C-FA (CHILDRENS CHEWABLE MULTI VITS PO) Active Ensure High Protein Oral Take by mouth 0 Powder daily Active Folic Acid 1 MG Oral Take 1 tablet 90 tablet 3 Tablet by mouth 0 (FOLVITE)Indications: daily Encounter for methotrexate monitoring Active Warfarin Sodium 7.5 MG Take 1 tablet 0 Oral Tablet (COUMADIN) by mouth Friday- ay Active Warfarin Sodium 5 MG Oral Take one 0 Tablet (COUMADIN) tablet Friday by mouth Active Levocetirizine Take by mouth 0 Dihydrochloride (XYZAL daily PO) Active TORSEMIDE PO Take 20 mg by 0 mouth daily Active metFORMIN HCl ER 500 MG Take one 120 tablet 5 Oral Tablet Extended tablet with 0 Release 24 Hour breakfast and (GLUCOPHAGE-XR) 2 tablets with dinner Active OneTouch Verio w/Device 1 each by 1 kit 0 KitIndications: Type 2 Does not 0 diabetes mellitus with apply route hyperglycemia, with daily DX E long-term current use of 11.65 insulin Active Unifine Pentips Plus 31G USE TO INJECT 400 each 1 X 5 MM (Insulin Pen INSULIN FOUR 0 Needle)Indications: Type TIMES A DAY 2 diabetes mellitus with hyperglycemia, with long-term current use of insulin Active Methotrexate 2.5 MG Oral Take 8 96 tablet 3 1 TabletIndications: tablets by 0 Seropositive rheumatoid mouth every 7 arthritis (seven) days Active Toujeo Max SoloStar 300 Inject 80 30 mL 1 UNIT/ML Subcutaneous units under 1 Solution Pen-injector the skin (insulin glargine (2 Unit daily. MDD Dial))Indications: Type 2 102 units. diabetes mellitus with DX: E11.65 hypoglycemia unawareness 11/14/2020 Discontinued (No longer need ed) metaxalone (SKELAXIN) 800 Take 800 mg 0 MG tablet by mouth Three times daily. 11/14/2020 Discontinued (No longer need ed) furosemide (LASIX) 40 MG Take 40 mg by 0 tablet mouth daily. 11/14/2020 Discontinued (No longer need ed) Apixaban (ELIQUIS PO) Take 5 mg by 0 mouth. 11/14/2020 Discontinued (Reorder) Insulin Glargine (2 Unit Inject 80 120 mL 1 0 Dial) 300 UNIT/ML units under 0 Subcutaneous Solution the skin Pen-injector (Toujeo Max daily. MDD SoloStar)Indications: 102 units. Type 2 diabetes mellitus DX: E11.65 with hypoglycemia unawareness 11/14/2020 Discontinued (No longer need ed) levoFLOXacin 750 MG Oral Take 750 mg 0 Tablet (LEVAQUIN) by mouth daily 11/14/2020 Discontinued (Duplicate) Levocetirizine 0 Dihydrochloride 5 MG Oral 0 Tablet (XYZAL) documented as of this encounter (statuses as of 11/14/2020) Active Problems Problem Noted Date Type 2 diabetes mellitus with peripheral neuropathy 08/08/2020 Vitamin D deficiency 06/17/2019 Type 2 diabetes mellitus with hypoglycemia unawarenes s 06/17/2019 Essential hypertension 09/22/2018 Type 2 diabetes mellitus with hyperglycemia, with colton g-term current use of 12/29/2017 insulin Dyslipidemia 09/19/2017 Obesity (BMI 30-39.9) 09/19/2017 Methotrexate, fdc, current use 01/26/2016 Polyarthritis 01/12/2016 History of recurrent miscarriages, not currently preg nant 01/12/2016 Malar rash 01/12/2016 Seropositive rheumatoid arthritis 01/12/2016 Pleurisy 01/12/2016 Lower leg DVT (deep venous thromboembolism), chronic 01/12/2016 Dysphagia 01/12/2016 Insulin long-term use 09/19/1997 Last Assessment & Plan: Formatting of this note might be differ ent from the original. Insulin Injection Record Ayaka Levine 11/14/2020 Meal Time Insulin Type: Humalog Blood Glucose (Mg/dl) Breakfast Lunch Supper Day Snack Night Snack Correction for High Glucose if not Eating Meal Correction for High Glucose at Bedtime Less than 70 Treat low blood sugar with 15 grams carbohydrate (example: 4 ounces juice or 4 glucose t ablets), recheck in 15 minutes and repeat treatm ent until above 70, then take insulin in 70 - 90 row. 70 - 90 0 0 0 91 - 130 0 0 0 131 - 150 1 1 1 151 - 200 2 2 2 201 - 250 3 3 3 251 - 300 3 3 3 301 - 350 4 4 4 351 - 400 4 4 4 401 - 450 5 5 5 Over 450 5 5 5 Do not give mealtime or correction insu ezra more frequently than every 3 hours. Long acting insulin: Toujeo 80 units at bedtime - decrease by 4 units every 3 consecuti ve days your morning fasting blood sugar is below 90 Discontinue metformin Carb consistent diet Exercise daily Please check fingerstick glucose before each meal and bedtime and once a week At 2 am documented as of this encounter (statuses as of 11/14/2020) Resolved Problems Problem Noted Date Resolved Date Uncontrolled type 1 diabetes mellitus with hyperglycemia 1 11/19/2016 12/29/2017 Uncontrolled type 1 diabetes mellitus with hypoglycem ia without coma 09/19/2017 12/29/2017 Uncontrolled type 1 diabetes mellitus with diabetic p eripheral neuropathy 09/19/2017 12/29/2017 SLE (systemic lupus erythematosus) 01/12/201608/2016 Serositis 01/12/2016 01/18/2016 Diabetes type 2, uncontrolled 01/12/2016 09/19/20 17 watermaster current use of systemic steroids 01/12/2016 04/28/2018 documented as of this encounter (statuses as of 11/14/2020) Immunizations Name Administration Dates Next Due Pneumococcal Conjugate 02/14/2017 PCV13 Pneumococcal 08/01/2017 Polysaccharide PPV23 documented as of this encounter Social History Date Tobacco Use Types Packs/Day Years Used Quit: 01/11/2002 Former Smoker 1 9 Smokeless Tobacco: Never Used Drinks/Week oz/Week Comments Alcohol Use 0 Standard drinks or equivalent 0.0 rare Yes Sex Assigned at Date Recorded Not on file documented as of this encounter Last Filed Vital Signs Reading Time Taken Comments Vital Sign - - Blood Pressure - - Pulse - - Temperature - - Respiratory Rate - - Oxygen Saturation - - Inhaled Oxygen Concentration 112.9 kg (249 lb) 11/14/2020 9:21 AM EST Weight - - Height 39 08/08/2020 10:27 AM EDT Body Mass Index documented in this encounter Patient Instructions * Patient Instructions* Riaz Fisher PA - 11/14/2020 9:30 AM EST Insulin long-term use Insulin Injection Record Ayaka Levine 11/14/2020 Meal Time Insulin Type: Humalog Blood Glucose (Mg/dl) Breakfast Lunch Supper Day Snack Night Snack Correction for High Glucose if not Eating Meal Correcti on for High Glucose at Bedtime Less than 70 Treat low blood sugar with 15 grams carbohydrate (example: 4 ounces juice or 4 glucose tablets), recheck in 15 minutes and repeat treatment until above 70, then take insulin in 70 - 90 row. 70 - 90 0 0 0 91 - 130 0 0 0 131 - 150 1 1 1 151 - 200 2 2 2 201 - 250 3 3 3 251 - 300 3 3 3 301 - 350 4 4 4 351 - 400 4 4 4 401 - 450 5 5 5 Over 450 5 5 5 Do not give mealtime or correction insulin more frequently than every 3 hours. Long acting insulin: Toujeo 80 units at bedtime - decrease by 4 units every 3 consecutive days your morning fasting blood sugar is below 90 Discontinue metformin Carb consistent diet Exercise daily Please check fingerstick glucose before each meal and bedtime and once a week A t 2 am documented in this encounter Progress Notes * Riaz Fisher PA - 11/14/2020 9:30 AM EST Ayaka Levine is a 50 y.o. female seen today for evaluation and management of type II diabetes. History taken from patient. This is a telephonic visit which w as performed without the use of video technology due to patient inability to con nect with video. The patient was informed of the risks including security breach , technological failure, inability to perform a physical exam which could delay or prevent an accurate diagnosis, and potential complications from treatment dec isions rendered over a telephonic platform. The patient understands and consente d to the use of a telephonic visit/telephone call. She was last seen on 08/08/[address] Quevedo. Interval since last visit: - knee problem causing imobility, had weekly steroid injections with gel in Dece mber 2019 by orthopedic group in [place], last on done end of October. - wound management in [place] taking care of her ulcers, healing well now, two completely healed. - 08/29/20 underwent gastric sleeve procedure, Dr. Quevedo, went from 277 to 24 9, will be losing more now that she is more mobile with improvement in knee. - has not needed meal insulin after steroid injections, except a few times with supper used 1:10 ratio above 120, states no lows so far. - getting routine labs including A1c done today with primary - d/c metformin after gastric sleeve due to vomiting - started Dexcom G6 Questions or concerns: none HPI: Diabetes first diagnosed: 1995 Previously treated with: Metformin (d/c post gastric sleeve vomiting), Glipizide . Currently manages diabetes with: Toujeo 80 units qHS Humalog 1:10 over 120 Checks glucose with: Dexcom G6 SMBG - One touch ultra Adherence to medication: good Daily ASA: no, Eliquis 5 mg bid Statin: yes DIABETES RELATED ROS: 1. Blood sugar checks: 4/day 2. Symptoms of hypoglycemia: rare, Unawareness -states dog can warn her because she smells different to him. Require outside assistance: yes, 4+ years ago, Loss of consciousness: no, Seizu re: no Medic Alert: no 3. Threshold: unaware 4. Diabetic ketoacidosis: no 5. Neuropathic symptoms (paresthesiae/numbness/pain): yes 6. Macrovascular disease symptoms: h/o no ID, no CVA, no PVD, angina: no, intermittent claudication: Yes, (left le g bill clot, right leg last year), TIA: no 7. Last eye exam: 09/2019, Retinopathy: no 8. Forest Pathology Associate Professor: Dr. Galindo, q3 months Foot Ulceration: yes Neuropathy: yes - charcot's arthropathy 9. Cadd Technician: no, possibly in future 10. General Road Supervisor: no Nephropathy: no 11. Rheumatology: Dr. Barron, every 3-6 months - RA 12. Spare Hand: Dr. Santana - s/p total hysterectomy (2009) - treating poor bladder control (displaced due to hysterectomy) -Hx of back injury about 2002, [place], leg pain fol lowed DIET Numbers of meals per day: 3 meals, cut out bread, goal 1200 calories (talked to tobacco primer machine operator here) -son has intestinal blockage issues, her diet based around son - having less carbs Breakfast: 5:30 am - boiled egg, taost, coffee Lunch: 11 am - sandwich, fruits Dinner: 5:30 pm - meat, rice, pasta on Friday Beverages: diet cranberry, water, coffee, unsweetened tea Snacks: no Bedtime: MN Lives: son (autism) Work: disability Regular physical activity: walkng with dog 4-5 times a day Needs for diabetes education assessed: yes Flu vaccine: yes PHQ-2 Score: PHQ-9 Score: HOME BLOOD GLUCOSE RECORD States she sent BG logs last night through [employer] but I do not see anything. Cu rrently not home. - Post steroid treatment as per patient: AM BG 80-100, daytime 100-120, bedtime 115-120 Past Medical History: Diagnosis Date Anxiety Asthma Basal cell carcinoma 2009 Diabetes Dyslipidemia Hepatomegaly Hypertension IBS (irritable bowel syndrome) Osteomyelitis PTSD (post-traumatic stress disorder) Seizure 1999 Loss of conciousness associated with jerking, eyes rolled up, tongue bite, and incontinence, Past Surgical History: Procedure Laterality Date APPENDECTOMY CHOLECYSTECTOMY 1995 HYSTERECTOMY, ABDOM, BILAT SALPINGO OOPHORECTOMY SHOULDER SURGERY Bilateral toe amp Right 2013 right foot 2nd toe Family History Problem Relation Age of Onset Lupus Cousin Crohn's disease Cousin Psoriasis Son Cancer Mother COPD Mother Heart disease Mother Thyroid disease Sister hypo Diabetes Maternal Aunt Thyroid cancer Neg Hx SOCIAL HISTORY: Social History Tobacco Use Smoking status: Former Smoker Packs/day: 1.00 Years: 9.00 Pack years: 9.00 Quit date: 01/11/2002 Years since quittin.8 Smokeless tobacco: Never Used Substance Use Topics Alcohol use: Yes Alcohol/week: 0.0 standard drinks Comment: rare Drug use: No Allergies Allergen Reactions Dilaudid [Hydromorphone Hcl] Anaphylaxis Latex Rash Current Outpatient Medications Medication Sig Dispense Refill busPIRone (BUSPAR) 10 MG tablet Take 20 mg by mouth Three times daily ciclopirox (PENLAC) 8 % solution daily 3 Ensure High Protein Oral Powder Take by mouth daily Folic Acid 1 MG Oral Tablet (FOLVITE) Take 1 tablet by mouth daily 90 tab let 3 gabapentin (NEURONTIN) 300 MG capsule Take 1 capsule by mouth Take one ca psule with breakfast ,one cap with lunch, and two capsules at bedtime 0 glucagon (GLUCAGON EMERGENCY) 1 MG injection Inject 1 mg IM as directed a s needed. DX E11.65 2 each 1 Insulin Lispro (1 Unit Dial) 100 UNIT/ML Subcutaneous Solution Pen-inject or (HUMALOG KWIKPEN) Inject subq 3 times daily per insulin orders. Max Daily Do se: 55 units inclusive of priming and titiration. Dx code: E11.65 60 mL 1 Levocetirizine Dihydrochloride (XYZAL PO) Take by mouth daily lidocaine (LIDODERM) 5 % Place 1 patch onto the skin every 24 (twenty-fou r) hours. losartan (COZAAR) 50 MG tablet Take 50 mg by mouth daily metFORMIN HCl ER 500 MG Oral Tablet Extended Release 24 Hour (GLUCOPHAGE- XR) Take one tablet with breakfast and 2 tablets with dinner 120 tablet 5 Methotrexate 2.5 MG Oral Tablet Take 8 tablets by mouth every 7 (seven) d ays 96 tablet 3 omeprazole (PRILOSEC) 40 MG capsule Take 40 mg by mouth daily. Ondansetron 4 MG Oral Tablet Disintegrating (ZOFRAN-ODT) DISSOLVE ONE TAB LET ON TONGUE EVERY 6 HOURS NEEDED FOR NAUSEA 1 OneTouch (DELiHireHelp) MISC fine lancets Use as directed 6 times daily 200 eac h 5 ONETOUCH VERIO test strip Use as instructed 6 times daily 200 each 5 OneTouch Verio w/Device Kit 1 each by Does not apply route daily DX E 11. 65 1 kit 0 Pediatric Multiple Vit-C-FA (CHILDRENS CHEWABLE MULTI VITS PO) Take by mo uth rosuvastatin (CRESTOR) 20 MG tablet daily spironolactone (ALDACTONE) 25 MG tablet Take 25 mg by mouth daily. sumatriptan (IMITREX) 50 MG tablet as needed 1 TORSEMIDE PO Take 20 mg by mouth daily Toualvina Max SoloStar 300 UNIT/ML Subcutaneous Solution Pen-injector (insul in glargine (2 Unit Dial)) Inject 80 units under the skin daily. MDD 102 units. DX: E11.65 30 mL 1 tramadol (ULTRAM) 50 MG tablet TAKE ONE TABLET BY MOUTH EVERY 12 HOURS NEEDED FOR PAIN SEVERE MAXIMUM DAILY DOSE 2 0 traZODone HCl 50 MG Oral Tablet (DESYREL) TAKE ONE TABLET BY MOUTH ONCE A DAY AT BEDTIME NEEDED 5 Unifine Pentips Plus 31G X 5 MM (Insulin Pen Needle) USE TO INJECT INSULI N FOUR TIMES A DAY 400 each 1 Vitamin B-12 1000 MCG Sublingual Tablet Sublingual Place under the tongue daily Vitamin D, Ergocalciferol, 78080 UNITS CAPS Take 50,000 Units by mouth ev scot other day. Warfarin Sodium 5 MG Oral Tablet (COUMADIN) Take one tablet Friday by brian Warfarin Sodium 7.5 MG Oral Tablet (COUMADIN) Take 1 tablet by mouth -Friday zolpidem (AMBIEN) 5 MG tablet TAKE ONE TABLET BY MOUTH ONCE A DAY AT BEDT AVNI NEEDED FOR INSOMNIA MAXIMUM DAILY DOSE 1 TABLET 0 No current facility-administered medications for this visit. ROS: The full 10-point review of systems is otherwise negative except as noted in HPI . PHYSICAL EXAM: Vitals: 11/14/20 0921 Weight: 112.9 kg (249 lb) Body mass index is 39 kg/m. Wt Readings from Last 3 Encounters: 11/14/20 112.9 kg (249 lb) 08/08/20 124.7 kg (275 lb) 03/03/20 120.2 kg (265 lb) BP Readings from Last 3 Encounters: 11/19/19 138/81 09/20/19 124/74 06/17/19 128/76 Physical Exam: phone call OUTSIDE RECORDS: reviewed. Pertinent positives summarized in HPI LABS: results reviewed in epic, discussed with the pt. Lab Results Component Value Date HGBA1C 8.2 (H) 09/20/2019 HGBA1C 8.4 (H) 06/17/2019 HGBA1C 9.3 03/08/2019 Lab Results Component Value Date POCGLU 111 09/20/2019 Lab Results Component Value Date CHO 196 03/08/2019 TRIG 153 03/08/2019 HDL 48 03/08/2019 LDL 117 03/08/2019 No results found for: LDLDIRECT Lab Results Component Value Date CREATININE 0.68 11/19/2019 BUN 11 04/22/2019 NA 136 04/24/2018 K 4.8 04/24/2018 CL 96 (L) 04/24/2018 No components found for: EGFR Lab Results Component Value Date MICROALBCR 09/19/2017 Microalbumin less than linear limit, therefore no MALB/CRE ratio available Lab Results Component Value Date AST 19 11/19/2019 Lab Results Component Value Date ALT 19 11/19/2019 Lab Results Component Value Date TSH 1.570 12/08/2018 Lab Results Component Value Date FREET4 0.90 (L) 09/19/2017 Lab Results Component Value Date CALCIUM 9.6 04/24/2018 Assessment/Plan: 1. Diabetes Mellitus Type II: last Hemoglobin A1c of 9.3%, and a prior A1C of 8. 2%. Goal ~7% with no lows. - underwent gastric sleeve 08/29/20 - continue toujeo 80 units - decrease toujeo 4 units every 3 consecutive days fasting morning BG is below 9 0 - will likely need significant decrease in toujeo but current BG seems to be wel l controlled - gave a Humalog scale - do not restart metformin - encourage to continue to lose weight - consult education to help upload dexcom - advise to upload cgm or send BG logs in 2 weeks - patients last labs were reviewed. Lifestyle issues for good control of diabete s, including diet, weight management and physical activity was discussed with th e patient. We reviewed proper administration of patient's medications. - will get lab results from primary care The patient has been instructed to check their blood glucose level 4 times per d ay including fasting, premeal, and bedtime, but up to 6 times per day for sickda y management, when symptomatic, or is correcting a low blood sugar. We reviewed the goals for good glycemic control and the symptoms of low blood deleon gar. Should she note readings below 70 or above 250 on a regular basis, she is t o contact the office for further medication adjustment. She is aware of the 15:1 5 rule to treat hypoglycemic episodes and the need for yearly eye exams and prop er foot care. Recommend yearly dilated eye exam and immunization (Flu vaccination/Pneumonia va ccination, Vaccine for Shingles and Hepatitis B vaccination). 2. Blood Pressure: - takes losartan 50 mg daily, furosemide, and spironolactone. 3. Lipids: - LDL 111, takes Rosuvastatin 20 mg daily, followed by primary. 4. Vitamin D deficiency: - Vit D 26, takes supplement, followed by primary 5. Obesity: - BMI 39.00, discussed lifestyle management, healthy diet and exercise (goal 150 min/week or 30 min/day moderate with no more then two consecutive days without exercise) 6. Neuropathy: - takes gabapentin, followed by podiatry 7. Charcot's arthropathy: - will be getting a brace, followed by podiatry 8. Foot Ulcer: - on Abx, followed by wound management Time spent on the telephonic visit today: 24 minutes RTC 3 months Diabetes Self-Management Education/Training (DSME/T) Per [facility] policy AMB J-19, the [place] RN loan workout officer CDE may provide my patient with insulin adjustments and all diabetes management guidelines per approved policies AMB J-01 through AMB J-18. My patient may receive diabetes self-management edu cation for any nursing, nutrition, or physical therapy needs which arise and req uire the expertise of a [place] educator. Insulin long-term use Insulin Injection Record Ayaka Levine 11/14/2020 Meal Time Insulin Type: Humalog Blood Glucose (Mg/dl) Breakfast Lunch Supper Day Snack Night Snack Correction for High Glucose if not Eating Meal Correcti on for High Glucose at Bedtime Less than 70 Treat low blood sugar with 15 grams carbohydrate (example: 4 ounces juice or 4 glucose tablets), recheck in 15 minutes and repeat treatment until above 70, then take insulin in 70 - 90 row. 70 - 90 0 0 0 91 - 130 0 0 0 131 - 150 1 1 1 151 - 200 2 2 2 201 - 250 3 3 3 251 - 300 3 3 3 301 - 350 4 4 4 351 - 400 4 4 4 401 - 450 5 5 5 Over 450 5 5 5 Do not give mealtime or correction insulin more frequently than every 3 hours. Long acting insulin: Toujeo 80 units at bedtime - decrease by 4 units every 3 consecutive days your morning fasting blood sugar is below 90 Discontinue metformin Carb consistent diet Exercise daily Please check fingerstick glucose before each meal and bedtime and once a week A t 2 am Orders Placed This Encounter Toujeo Max SoloStar 300 UNIT/ML Subcutaneous Solution Pen-injector (insul in glargine (2 Unit Dial)) Thank you for allowing us to participate in the care of your patient. Please river l us with further questions. Riaz Fisher PA-C Endocrinology, Diabetes and Metabolism [facility] documented in this encounter Miscellaneous Notes * Assessment & Plan Note - Riaz Fisher PA - 11/14/2020 9:50 AM EST Associated Problem(s): Insulin long-term use Insulin Injection Record Ayaka Levine 11/14/2020 Meal Time Insulin Type: Humalog Blood Glucose (Mg/dl) Breakfast Lunch Supper Day Snack Night Snack Correction for High Glucose if not Eating Meal Correcti on for High Glucose at Bedtime Less than 70 Treat low blood sugar with 15 grams carbohydrate (example: 4 ounces juice or 4 glucose tablets), recheck in 15 minutes and repeat treatment until above 70, then take insulin in 70 - 90 row. 70 - 90 0 0 0 91 - 130 0 0 0 131 - 150 1 1 1 151 - 200 2 2 2 201 - 250 3 3 3 251 - 300 3 3 3 301 - 350 4 4 4 351 - 400 4 4 4 401 - 450 5 5 5 Over 450 5 5 5 Do not give mealtime or correction insulin more frequently than every 3 hours. Long acting insulin: Toujeo 80 units at bedtime - decrease by 4 units every 3 consecutive days your morning fasting blood sugar is below 90 Discontinue metformin Carb consistent diet Exercise daily Please check fingerstick glucose before each meal and bedtime and once a week A t 2 am documented in this encounter Plan of Treatment Care Team Description Date Type Specialty Riaz Fisher PA [address] [place] [address] [phone] 02/15/2021 Office Visit Endocrinology Ina Quevedo MD [address] [place] [address] [phone] 06/05/2021 Office Visit Endocrinology Health Maintenance Due Date Last Done Comments MMR Vaccines (1 of - 1970 Standard series) Varicella Vaccines (1 of 1970 2 - 2-dose childhood series) DTaP,Tdap,and Td Vaccines 1976 (1 - Tdap) HIV Screening 1982 Diabetic Foot Exam 1987 Dilated Retinal Exam 1987 Hepatitis B Vaccines (1 1988 of 3 - Risk 3-dose series) Cervical Cancer Screening 1990 5 years Breast Cancer Screening 2 2019 years Colon Cancer Screening 10 2019 yrs Lipid Disorder Screening 03/08/2020 03/08/2019, 12/08/2018 Urine Microalbumin 03/08/2020 03/08/2019, 09/19/2017 Hemoglobin A1c 03/20/2020 09/20/2019, 06/17/2019, 03/08/2019, Additional history exists Influenza Vaccine 08/10/2020 08/10/2018, 09/23/2017 Pneumococcal Vaccine: 65+ 2034 08/01/2017, Years (2 of 2 - PPSV23) 02/14/2017 Pneumococcal Vaccine: Completed 08/01/2017, Pediatrics (0 to 5 Years) 02/14/2017 and At-Risk Patients (6 to 64 Years) HIB Vaccines Aged Out No longer eligible based on patient's age to complete this topic Hepatitis A Vaccines Aged Out No longer eligibl e based on patient's age to complete this topic IPV Vaccines Aged Out No longer eligible based on patient's age to complete this topic documented as of this encounter Results Not on filedocumented in this encounter Visit Diagnoses Diagnosis Type 2 diabetes mellitus with hypoglyce marguerite unawareness - Primary Type II or unspecified type diabetes me llitus with other specified manifestations, not stated as uncontrolled Type 2 diabetes mellitus with periphera l neuropathy Type 2 diabetes mellitus with hyperglyc emia, with long-term current use of insulin Obesity (BMI 30-39.9) Obesity, unspecified Insulin long-term use Encounter for long-term (current) use o f insulin documented in this encounter
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
--- OUTSIDE RECORDS SUMMARY | 2020-11-26 16:54 | CCD ---
Continuity of Care Document (CCD) Created on: 10/16/2020 Ayaka Levine External Reference #: [id number] : [id number] Sex: Female Author Author Ayaka WARREN MD Organization Unknown Address [address] [place] [address], [address] [place] [address] Phone [phone] Care Team Providers Care Cloth Stretcher Name Role Phone Agustin Boogie M.D. AUTM [phone] Jasmin Roque M.D. AUTM [phone] AUTM Unavailable [facility] AUTM [phone] Problems Active Problems Provider Date Allergic asthma [...] S yringe right knee #1 10/16/20 swm/cp Kevin Warren MD 10/16/2020 Oxybutynin Chloride ER [...] lb BMI (Body Mass Index) 41.5 kg/m2 [place] Body Weight 135 lb Weight 120.204 kg BSA (Body Surface Area) 2.28 m2 Results Test Acquired Date Facility Test Result H/L Range Note Order 04/20/2020 [facility] Ce nter Physical PT Physical Therapy <pending> Procedures Date Code Description Status 10/16/2020 43697 Inject/Drain Arthrocentesis Halina r Joint/Bursa/Ganglion Cyst Completed Medical Devices Description No Information Available Encounters Type Date Location Provider Dx Diagnosis Office Visit 10/16/2020 8:10a [facility] Kevin Warren MD M17.11 Unilateral primary osteoarthritis, right knee M25.561 Pain in right knee Assessments Date Code Description Provider 10/16/2020 M17.11 Unilateral primary osteoarthriti s, right knee Kevin Warren MD 10/16/2020 M25.561 Pain in right knee Kevin fenton MD Plan of Treatment Future Appointment(s):* 10/31/2020 8:40 am - Kevin Warren MD at [facility] * 10/24/2020 8:00 am - Kevin Warren MD at [facility] 10/16/2020 - Kevin Warren MD* M17.11 Unilateral primary osteoarthritis, right knee * M25.561 Pain in right knee Functional Status Functional Condition Comment Date Status Independent with all ADL's Activ e Independent with all IADL's Acti ve Mental Status Mental Condition Comment Date Status Cognitive ability not impaired A ctive Referrals Refer to Dr Reason for Referral Status Appt Date Kevin Warren MD [facility] 3 [id number], [id number] RIGHT KNEE APPROVED AUTH [id number], AUTH [employer]ILL 11-09-20, SENT TO [facility] Do.LD Created [facility] [place] [address] [phone] Kevin Warren MD PT EVAL [phone], R IGHT KNEE, NO AUTH REQD DEEMED MED NEC. [facility] PT DEPT..LD Created [address] [place] [address] [phone] Kevin Warren MD Closed [facility] [place] [address] [phone]
--- OUTSIDE RECORDS SUMMARY | 2020-11-26 16:54 | CCD | Continuity of Care Document ---
Author Author Ayaka GARCIA QUALITY ASSURANCE/R&D LAB TECHNICIAN Organization Unknown Address [address], [address] [place] [address] Phone [phone] Care Team Providers Care Security Patrol Officer Name Role Phone Agustin Boogie MD AUTM [phone] Alvaro Barry M.D. AUTM [phone] Yariel Lemon MD AUTM [phone] Delio Kim M.D. AUTM Problems Active Problems Provider Date Morbid obesity Danni Garcia QUALITY ASSURANCE/R&D LAB TECHNICIAN Onset: 07/21/2020 Hyperlipidemia Danni Garcia, QUALITY ASSURANCE/R&D LAB TECHNICIAN Onset: 07/21/2020 Anemia Danni Garcia, QUALITY ASSURANCE/R&D LAB TECHNICIAN Onset: 07/21/2020 Deep venous thrombosis Danni Garcia QUALITY ASSURANCE/R&D LAB TECHNICIAN Onset: 07/21/2020 Depressive disorder Danni Garcia QUALITY ASSURANCE/R&D LAB TECHNICIAN Onset: 07/21/2020 Diabetes mellitus Danni Garcia QUALITY ASSURANCE/R&D LAB TECHNICIAN Onset: 07/21/2020 Essential hypertension Danni Garcia QUALITY ASSURANCE/R&D LAB TECHNICIAN Onset: 07/21/2020 Irritable bowel syndrome Danni Garcia QUALITY ASSURANCE/R&D LAB TECHNICIAN Onset: 07/21/20 20 Gastroesophageal reflux disease Danni Garcia QUALITY ASSURANCE/R&D LAB TECHNICIAN Onset: 0 07/21/2020 Social History Type Date Description Comments Sex Unknown ETOH Use 08/21/2020 Denies alcohol use Tobacco Use Start: Unknown End: Unknown Patient is a former smoker Allergies, Adverse Reactions, Alerts Active Allergies Reaction Severity Comments Date Dilaudid 01/09/2020 Latex 01/09/2020 Nickel rash 05/01/2020 Medications Active Medications SIG Qnty Indications Ordering Provide r Date Zofran 4mg Tablets needed Radha Cochran NP 06/09/2020 Metoprolol Succinate ER 25mg Tablets ER 24HR Take One Tablet By Mouth Every Day 90tabs Yariel Lemon MD 05/01/2020 Zolpidem Tartrate 5mg Tablets 1 PO daily AT bedtime. Unknown 01/09/2020 Vitamin D2 2000Unit Tablets 1 by mouth every day Unknown 01/09/2020 Stephanie Coxostar 300Unit/ML Solution Pen-Inject 88 units every night AT bedtime Unknown 01/09/2020 Spironolactone 25mg Tablets 1 by mouth every day Unknown 01/09/[address] 1 by mouth every day Unknown 01/09/2020 Methotrexate 2.5mg Tablets 8 tabs on directed by Rheumatology Unknown 01/09/2020 Losartan Potassium 50mg Tablets 1 by mouth every day Unknown 01/09/2020 Lidoderm 5% Patches apply to affected area needed remove after 12 hours Unknown 01/09/2020 Imitrex 50mg Tablets 1 by mouth AT onset of migraine, may repeat in 2 hours if symptoms persist. Unknown 01/09/2020 Humalog 100Unit/ML Solution S S Unknown 01/09/2020 Gabapentin 300mg Capsules 1 by mouth 2 times a day, then 600 mg AT night Unknown 01/09/2020 Folic Acid 800mcg Tablets 1 by mouth once a day Unknown 01/09/2020 Rosuvastatin Calcium 20mg Tablets 1 by mouth every day Unknown 01/09/2020 Buspirone HCL 10mg Tablets 2 by mouth three times a day Unknown 01/09/2020 Warfarin Sodium 7.5mg Tablets directed followed by PCP Dr Boogie in [place] Unknown Ergocalciferol 1.25mg (68785 Ut) C apsules take one capsule 3 times a week Unknown B12 Fast Dissolve 5000mcg Tablets Dispers 1 by mouth every day Unknown Torsemide 20mg Tablets 1 by mouth every day Unknown Metformin HCL 500mg Tablets take 1 tablet in the morning and 2 tablets with dinner Unknown Trazodone HCL 50mg Tablets take 1 tablet by mouth AT bedtime Unknown History Medications Aspirin [address] 1 by mouth every day Yariel Lemon MD 05/01/2020 - 07/24/2020 Immunizations Description No Information Available Vital Signs Date Vital Result Comment 09/08/2020 9:23am Height 67 inches 5'7" Weight 256.12 lb BMI (Body Mass Index) 40.1 kg/m2 BP Systolic 110 mmHg BP Diastolic 70 mmHg Heart Rate 77 /min Body Temperature 97.3 F Body Temperature 36.3 C O2 % BldC Oximetry 99 % 08/21/2020 1:02pm Height 67 inches 5'7" Weight 275.38 lb BMI (Body Mass Index) 43.1 kg/m2 BP Systolic 138 mmHg BP Diastolic 80 mmHg Heart Rate 77 /min Body Temperature 96.8 F Body Temperature 36.0 C O2 % BldC Oximetry 98 % Results Test Acquired Date Facility Test Result H/L Range Note Cbcadp 09/08/2020 [facility] [address] [place] [address] [phone] WBC. 9.63 x10E3/uL 4.2-12.0 RBC 4.75 x10E6/uL 3.9-5.4 HGB 13.5 g/dL 12.0-16.0 HCT 42.3 % 36-47 MCV 89.2 fL 80-98 MCH 28.5 pg 27-33 MCHC 31.9 g/dL Low 32-36 RDW 14.5 % 11.2-15.2 PLT 357 x10E3/uL 135-420 MPV 7.9 fL 7.0-12.3 % Elicia 62.3 % 41.0-80.0 %Lym 32.5 % 10.0-45.2 %[place] 3.0 % 2.0-13.0 %Eos 1.3 % 0.0-8.0 %Baso 0.9 % 0.0-3.0 Neut 6.0 x10E3/uL 2.0-8.1 Lymp 3.1 x10E3/uL 0.6-3.1 [place] 0.3 x10E3/uL 0.0-1.0 Eos 0.1 x10E3/uL 0.0-0.6 Baso 0.1 x10E3/uL 0.0-0.2 BMP-Female 09/08/2020 [facility] [address] [place] [address] [phone] Glucose 205 mg/dL High 74-106 1 BUN 10 mg/dL 6-20 Creatinine 0.8 mg/dL 0.5-1.3 Sodium 134 mmol/L Low 136-145 Potassium 5.2 mmol/L 3.5-5.3 Chloride 99 mmol/L 98-107 Co2 26 mEq/L 20-31 Anion Gap 9 mmol/L 7-16 eGFR-female 76 mL/m/1.73m - eGFR-Aa female 92 mL/m/1.73m - 2 Calcium 9.7 mg/dL 8.9-10.5 Laboratory test finding 09/08/2020 [facility] [address] [place] [address] [phone] Magnesium 1.8 mg/dL 1.7-2.4 3 Phosphorus 3.3 mg/dL 2.7-4.5 4 PT-Inr 09/08/2020 [facility] [address] [place] [address] [phone] PT 44.6 Sec High 10.6-13.0 Inr 4.1 - 5 Laboratory test finding 09/08/2020 [facility] [address] [place] [address] [phone] Venipuncture DONE - 6 Laboratory test finding 2020 [facility] [address] [place] [address] [phone] Sars Covid-19 Amplification NEGATIVE Normal Nega tive 7 Coronavirus 2019 Nasopharygeal 05/24/[address] [address] [phone] Coronavirus 2019 Nasopharygeal Testing was perf <SEE N OTE> 8 Complete Blood Count 05/02/2020 [facility] [address] [place] [address] [phone] White Blood Count 6.9 10 Normal 4.0-10.0 Red Blood Count 4.26 10 Normal 4.00-5.40 Hemoglobin 12.3 g/dL Normal 12.0-15.5 Hematocrit 37.5 % Normal 36.0-47.0 Mean Corpuscular Volume 88.0 fl Normal 80.0-96.0 Mean Corpuscular Hemoglobin 28.9 pg Normal 27.0-33.0 Mean Corpuscular HGB Conc 32.8 g/dL Normal 32.0-36.5 Red Cell Distribution Width 12.8 % Normal 11.5-14.5 Platelet Count, Automated 299 10 Normal 150-450 Nucleated Red Blood Cell % 0.0 % Normal 0-0 Differential Automated 05/02/[address] [address] [phone] Neutrophils % 50.9 % Normal 36.0-66.0 Lymph % 39.5 % Normal 24.0-44.0 [place]ot % 5.5 % High 0.0-5.0 Eos % 2.9 % Normal 0.0-3.0 Baso % 0.9 % Normal 0.0-1.0 Immature Granulocyte % 0.3 % Normal 0-3.0 Neutrophils # 3.5 10 Normal 1.5-8.5 Lymph # 2.7 10 Normal 1.5-5.0 Chicot # 0.4 10 Normal 0.0-0.8 Eos # 0.2 10 Normal 0.0-0.5 Baso # 0.1 10 Normal 0.0-0.2 Basic Metabolic Profile 05/02/[address] [address] [phone] Glucose, Fasting 205 mg/dL High 70-100 Blood Urea Nitrogen 13 mg/dL Normal 7-18 Creatinine For GFR 0.73 mg/dL Normal 0.55-1.30 Glomerular Filtration Rate > 60.0 Normal >51 9 Sodium Level 138 mEq/L Normal 136-145 Potassium Serum 4.6 mEq/L Normal 3.5-5.1 Chloride Level 105 mEq/L Normal 98-107 Carbon Dioxide Level 28 mEq/L Normal 21-32 Anion Gap 5 mEq/L Low 8-16 Calcium Level 9.0 mg/dL Normal 8.5-10.1 1 [place] Diabetes Associatio n (ADA) Recommended Range is 65-99 mg/dL 2 Normal Kidney Function or Mi ld Disease GFR >59 mL/min/1.73m2 Chronic Kidney Disease GFR 15-59 mL/min/1.73m2 Renal Failure GFR <15 mL/min/1.73m2 3 pt did not fast 4 04/17/2020-According to Magali s - Blood samples from some patients with monoclonal gammopathies may produce falsely elevated phosphorous results with this assay. 5 Results Confirmed by Repeat Analysis. called to Geri Rodriguez and transmitted 1206 josué 09/08/2020 * INR Interpretation : . Recommended Theraputic Range: 2.0 - 3.0 . For treatment/prophylaxis . of venous thrombosis, . prevention of embolism. . . 6 pt did not fast 7 A false negative result may occur if a specimen is improperly collected, transported or handled. False negative results may also occur if inadequate numbers of organisms are present in the specimen. As with any molecular test, mutations within the target regions of Xpert Xpress SARS-CoV-2 could affect primer and/or probe binding resulting in failure to detect the presence of virus. This test cannot rule out diseases caused by other bacterial or viral pathogens. DISCLAIMER: Testing was performed using the [employer] SARS-CoV-2 test. This test was developed and its performance characteristics determined by [employer]. This test has not been FDA cleared or approved. This test has been authorized by FDA under an Emergency Use Authorization (EUA). This test is only authorized for the duration of time the declaration that circumstances exist justifying the authorization of the emergency use of in vitro diagnostic tests for detection of SARS-CoV-2 virus and/or diagnosis of COVID-19 infection under section 564(b)(1) of the Act, 21 U.S.C. 360bbb-3(b)(1), unless the authorization is terminated or revoked sooner. 8 Testing was performed using the charlene(R) SARS-CoV-2 test. This test was developed and its performance characteristics determined by [employer]. This test has not been FDA cleared or approved. This test has been authorized by FDA under an Emergency Use Authorization (EUA). This test is only authorized for the duration of time the declaration that circumstances exist justifying the authorization of the emergency use of in vitro diagnostic tests for detection of SARS-CoV-2 virus and/or diagnosis of COVID-19 infection under section 564(b)(1) of the Act, 21 U.S.C. 360bbb-3(b)(1), unless the authorization is terminated or revoked sooner. When diagnostic testing is negative, the possibility of a false negative result should be considered in the context of a patient's recent exposures and the presence of clinical signs and symptoms consistent with COVID-19. An individual without symptoms of COVID-19 and who is not shedding SARS-CoV-2 virus would expect to have a negative (not detected) result in this assay. Performed at: RN - [facility] [address] [id number] Head Of Quality: Alla Mcgregor MD, Phone: [phone] Not Detected 9 Units are mL/min/1.73 m2 Chronic Kidney Disease Staging per NKF: Stage I & II GFR >=60 Normal to Mildly Decreased Stage III GFR 30-59 Moderately Decreased Stage IV GFR 15-29 Severely Decreased Stage V GFR <15 Very Little GFR Left ESRD GFR <15 on [employer] EX[employer]IVE Procedures Date Code Description Status 08/29/2020 99682 Laparoscopy Surg Gas t Restrict Procedure Longitudinal Gastrectomy Completed 06/12/2020 06132 Coronary Angiography With Left H eart Catheterization Completed 05/01/2020 24721 Echocardiography, Tranthoracic R eal-Time Image Documentation Completed 05/01/2020 59090 Echocardiography, Tranthoracic R eal-Time Image Documentation Completed 05/01/2020 93267 Cardiovascular Stress Test Inter pretation & Report Only Completed 05/01/2020 36404 Cardiovascular Stress Test Physi bryn Supervision Only Completed 05/01/2020 85205 Myocardial Perfusion Imaging Tomographic (Spect) Multiple Studies Completed Medical Devices Description No Information Available Encounters Type Date Location Provider Dx Diagnosis Office Visit 10/09/2020 10:30a [facility] Surgical Services Danni Garcia NP Z09 Encntr for f/u exam aft trtmt for cond oth than malig neoplm Office Visit 09/08/2020 9:30a [facility] Surgical Services Danni Garcia NP E66.01 Morbid (severe) obesity due to excess calories E11.9 Type 2 diabetes mellitus wit hout complications 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.01 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 nticoagulants Office Visit 09/01/2020 3:13a [facility] Surgical Services Prosper Cantrell DO Office Visit 08/30/2020 3:33a [facility] Surgical Services Delio Kim MD Office Visit 08/21/2020 12:30p [facility] Surgical Services Delio garcia MD E66.01 Morbid (severe) obesity due to excess ca lories I10 Essential (primary) hyperten livier E78.5 Hyperlipidemia, unspecified E11.9 Type 2 diabetes mellitus wit hout complications Z79.4 military source operations specialist (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 i nsulin Z79.01 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 nticoagulants Z68.41 Body mass index [BMI]40.0-44 .9, adult Office Visit 07/24/2020 1:45p [facility] [place] Yariel donis MD Z01.810 Encounter for preprocedural cardiovascul ar examination I25.10 Athscl heart disease of [place] ve coronary artery w/o ang pctrs E78.5 Hyperlipidemia, unspecified I11.0 Hypertensive heart disease w ith heart failure I50.32 Chronic diastolic (congestiv e) heart failure E66.01 Morbid (severe) obesity due to excess calories R60.0 Localized edema Z79.02 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 ntithrombotics/antiplatelets Z82.49 Family hx of ischem heart di s and oth dis of the circ sys Z68.41 Body mass index (BMI) 40.0-4 4.9, adult Office Visit 07/21/2020 9:00a [facility] Surgical Services Danni Garcia NP I25.84 Coronary atherosclerosis due to calcified coronary lesion E66.01 Morbid (severe) obesity due to excess calories I11.9 Hypertensive heart disease w ithout heart failure E78.00 Pure hypercholesterolemia, u nspecified J44.9 Chronic obstructive pulmonar y disease, unspecified I73.9 Peripheral vascular disease, unspecified Z68.41 Body mass index (BMI) 40.0-4 4.9, adult Office Visit 06/09/2020 1:45p [facility] [place] Radha cali NP R94.39 Abnormal result of other cardiovascular function study R07.9 Chest pain, unspecified Z82.49 Family hx of ischem heart di s and oth dis of the circ sys Office Visit 05/01/2020 3:45p [facility] [place] Yariel donis MD Z01.810 Encounter for preprocedural cardiovascul ar examination E78.5 Hyperlipidemia, unspecified I25.119 Athscl heart disease of [place] ve cor art w unsp ang pctrs I10 Essential (primary) hyperten livier Z82.49 Family hx of ischem heart di s and oth dis of the circ sys Assessments Date Code Description Provider 10/09/2020 Z09 Encounter for follow -up examination after completed treatment for conditions other than malignant neoplasm Danni Jose, QUALITY ASSURANCE/R&D LAB TECHNICIAN 09/08/2020 E66.01 Morbid (severe) obesity due to e xcess calories Danni Walker, QUALITY ASSURANCE/R&D LAB TECHNICIAN 09/08/2020 E11.9 Type 2 diabetes mellitus without complications Danni Walker, QUALITY ASSURANCE/R&D LAB TECHNICIAN 09/08/2020 Z79.01 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ntic oagulants Danni Walker, QUALITY ASSURANCE/R&D LAB TECHNICIAN 09/08/2020 E66.01 Morbid (severe) obesity due to e xcess calories [facility] 09/08/2020 Z79.01 skilled nursing (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 antic oagulants [facility] 09/08/2020 E66.01 Morbid (severe) obesity due to e xcess calories [facility] 09/08/2020 Z79.01 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ntic oagulants [facility] 08/29/2020 E66.01 Morbid (severe) obesity due to e xcess calories Delio Kim MD 08/29/2020 E11.9 Type 2 diabetes mellitus without complications Delio Kim MD 08/29/2020 I10 Essential (primary) hypertension Delio Kim MD 08/29/2020 Z79.4 skilled nursing (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 insul in Delio Kim MD 08/29/2020 Z68.41 Body mass index [BMI]40.0-44.9, adult Delio Kim MD 08/21/2020 E66.01 Morbid (severe) obesity due to e xcess calories Delio Kim MD 08/21/2020 I10 Essential (primary) hypertension Delio Kim MD 08/21/2020 E78.5 Hyperlipidemia, unspecified Fidencio Kim MD 08/21/2020 E11.9 Type 2 diabetes mellitus without complications Delio Kim MD 08/21/2020 Z79.4 military source operations specialist (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 insul in Delio Kim MD 08/21/2020 Z79.01 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ntic oagulanlydia Kim MD 08/21/2020 Z68.41 Body mass index [BMI]40.0-44.9, adult Delio Kim MD 07/24/2020 Z01.810 Encounter for preprocedural card iovascular examination Yariel Lemon MD 07/24/2020 I25.10 Atherosclerotic hear t disease of [place] coronary artery without angina pectoris Yariel Lemon MD 07/24/2020 E78.5 Hyperlipidemia, unspecified Yariel Lemon MD 07/24/2020 I11.0 Hypertensive heart disease with heart failure Yariel Lemon MD 07/24/2020 I50.32 Chronic diastolic (congestive) h eart failure Yariel Lemon MD 07/24/2020 E66.01 Morbid (severe) obesity due to e xcess calories Yariel Lemon MD 07/24/2020 R60.0 Localized edema Yariel Lemon MD 07/24/2020 Z79.02 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ntit hrombotics/antiplatelets Yariel Lemon MD 07/24/2020 Z82.49 Family history of is chemic heart disease and other diseases of the circulatory system Yariel Lemon MD 07/24/2020 Z68.41 Body mass index (BMI) 40.0-44.9, adult Yariel Lemon MD 07/21/2020 I25.84 Coronary atherosclerosis due to calcified coronary lesion Danni Garcia, CLIFF 07/21/2020 E66.01 Morbid (severe) obesity due to e xcess calories Danni Garcia, CLIFF 07/21/2020 I11.9 Hypertensive heart disease witho ut heart failure Danni Garcia, CLIFF 07/21/2020 E78.00 Pure hypercholesterolemia, unspe cified Danni Garcia, QUALITY ASSURANCE/R&D LAB TECHNICIAN 07/21/2020 J44.9 Chronic obstructive pulmonary di sease, unspecified Danni Walker, QUALITY ASSURANCE/R&D LAB TECHNICIAN 07/21/2020 I73.9 Peripheral vascular disease, uns pecified Danni Walker, QUALITY ASSURANCE/R&D LAB TECHNICIAN 07/21/2020 Z68.41 Body mass index (BMI) 40.0-44.9, adult Danni Garcia, CLIFF 06/12/2020 I25.10 Atherosclerotic hear t disease of [place] coronary artery without angina pectoris Ren Weaver MD 06/12/2020 I25.84 Coronary atherosclerosis due to calcified coronary lesion Ren Weaver MD 06/12/2020 I25.82 Chronic total occlusion of coron radha artery Ren Weaver MD 06/12/2020 I11.9 Hypertensive heart disease witho ut heart failure Ren Weaver MD 06/12/2020 E78.00 Pure hypercholesterolemia, unspe cified Ren Weaver MD 06/12/2020 J44.9 Chronic obstructive pulmonary di sease, unspecified Ren Weaver MD 06/12/2020 I73.9 Peripheral vascular disease, uns pecified Ren Weaver MD 06/12/2020 E11.9 Type 2 diabetes mellitus without complications Ren Weaver MD 06/12/2020 Z79.4 skilled nursing (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 insul in Ren Weaver MD 06/12/2020 Z79.01 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ntic oagulants Ren Weaver MD 06/12/2020 Z86.718 Personal history of other venous thrombosis and embolism Ren Weaver MD 06/12/2020 Z82.49 Family history of is chemic heart disease and other diseases of the circulatory system Ren Weaver MD 06/09/2020 R94.39 Abnormal result of other cardiov ascular function study Radha Cochran NP 06/09/2020 R07.9 Chest pain Radha Cochran NP 06/09/2020 Z82.49 Family history of is chemic heart disease and other diseases of the circulatory system Radha Cochran NP 05/01/2020 Z01.810 Encounter for preprocedural card iovascular examination Testing 05/01/2020 Z01.810 Encounter for preprocedural card iovascular examination Yariel Lemon MD 05/01/2020 R94.39 Abnormal result of other cardiov ascular function study Testing 05/01/2020 E78.5 Hyperlipidemia, unspecified Yariel Lemon MD 05/01/2020 R06.02 Shortness of breath Testing 05/01/2020 I25.119 Atherosclerotic hear t disease of [place] coronary artery with unspecified angina pectoris Yariel Lemon MD 05/01/2020 I10 Essential (primary) hypertension Testing 05/01/2020 I10 Essential (primary) hypertension Yariel Lemon MD 05/01/2020 E78.00 Pure hypercholesterolemia, unspe cified Testing 05/01/2020 Z82.49 Family history of is chemic heart disease and other diseases of the circulatory system Yariel Lemon MD 05/01/2020 E11.9 Type 2 diabetes mellitus without complications Testing 05/01/2020 Z01.810 Encounter for preprocedural card iovascular examination Yariel Lemon MD 05/01/2020 E66.9 Obesity, unspecified Testing 05/01/2020 R94.39 Abnormal result of other cardiov ascular function study Yariel Lemon MD 05/01/2020 Z87.891 Personal history of nicotine dep endence Testing 05/01/2020 R06.02 Shortness of breath Yariel phillips MD 05/01/2020 I10 Essential (primary) hypertension Yariel Lemon MD 05/01/2020 E78.00 Pure hypercholesterolemia, unspe cified Yariel Lemon MD 05/01/2020 E11.9 Type 2 diabetes mellitus without complications Yariel Lemon MD 05/01/2020 E66.9 Obesity, unspecified Yariel kimble MD 05/01/2020 Z87.891 Personal history of nicotine dep endence Yariel Lemon MD 05/01/2020 Z01.810 Encounter for preprocedural card iovascular examination Yariel Lemon MD 05/01/2020 R94.39 Abnormal result of other cardiov ascular function study Yariel Lemon MD 05/01/2020 R06.02 Shortness of breath Yariel phillips MD 05/01/2020 I10 Essential (primary) hypertension Yariel Lemon MD 05/01/2020 E78.00 Pure hypercholesterolemia, unspe cified Yariel Lemon MD 05/01/2020 E11.9 Type 2 diabetes mellitus without complications Yariel Lemon MD 05/01/2020 E66.9 Obesity, unspecified Yariel kimble MD 05/01/2020 Z87.891 Personal history of nicotine dep fatoumata Lemon MD Plan of Treatment Future Appointment(s):* 01/22/2021 1:30 pm - Yariel Lemon MD at [facility] [place] 08/21/2020 - Delio Kim MD* E66.01 Morbid (severe) obesity due to excess calories* New Labs:* CBC W/Auto Differential, Ordered: 08/21/20 * [facility]-Female, Ordered: 08/21/20 * Comments:* Ayaka has a long-standing history of morbid obesity.She has completed her bariatric program.She has had nutritional counseling.She has been seen and cleared by her psychologist.She has been seen and cleared by her gunstock spray unit adjuster for surgery.She will see her primary care physician tomorrow.She was instructed on which medications to avoid, and went to avoid them prior to her surgery.We discussed the surgery in detail.We discussed the risks, options, benefits, potential consultations with surgery in some detail.I discussed the use of the CHG wipes in detail.The patient will need routine blood testing performed by her primary care physician tomorrow. * I10 Essential (primary) hypertension * E78.5 Hyperlipidemia, unspecified* New Labs:* CBC W/Auto Differential, Ordered: 08/21/20 * [facility]-Female, Ordered: 08/21/20 * E11.9 Type 2 diabetes mellitus without complications* New Labs:* CBC W/Auto Differential, Ordered: 08/21/20 * [facility]-Female, Ordered: 08/21/20 * Z79.4 skilled nursing (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 insulin * Z79.01 skilled nursing (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 anticoagulants * Z68.41 Body mass index [BMI]40.0-44.9, adult Functional Status Description No Information Available Mental Status Description No Information Available Referrals Description No Information Available
--- OUTSIDE RECORDS SUMMARY | 2020-11-26 16:54 | CCD | Continuity of Care Document ---
Author Author [facility] Organization Unknown Address [address] [address] Phone [phone] Care Team Providers Care Wire Wheeler Name Role Phone Agustin Boogie MD AUTM [phone] Alvaro Barry M.D. AUTM [phone] Yariel Lemon MD AUTM [phone] Delio Kim M.D. AUTM [phone] Problems Active Problems Provider Date Morbid obesity Danni Walker, [employer] Onset: 07/21/2020 Hyperlipidemia Danni Walker, [employer] Onset: 07/21/2020 Anemia Danni Walker, [employer] Onset: 07/21/2020 Deep venous thrombosis Dannielma Garcia, [employer] Onset: 07/21/2020 Depressive disorder Danni Garcia, [employer] Onset: 07/21/2020 Diabetes mellitus Dannielma Garcia, [employer] Onset: 07/21/2020 Essential hypertension Danni Garcia, [employer] Onset: 07/21/2020 Irritable bowel syndrome Danni Garcia, [employer] Onset: 07/21/20 20 Gastroesophageal reflux disease Danni Garcia [employer] Onset: 0 07/21/2020 Social History Type Date [...] by mouth every day Unknown 01/09/2020 Stephanie Hernandez Solostar 300Unit/ML Solution Pen-Inject 88 units every night [...] directed followed by PCP Dr Boogie in [place] Unknown Ergocalciferol 1.25mg (74138 Ut) C apsules take one capsule 3 [...] Test Result H/L Range Note Cbcadp 09/08/2020 [facility] [address] [place] [address] [phone] WBC. 9.63 x10E3/uL 4.2-12.0 RBC 4.75 x10E6/uL 3.9-5.4 HGB 13.5 g/dL 12.0-16.0 HCT 42.3 % 36-47 MCV 89.2 fL 80-98 MCH 28.5 pg 27-33 MCHC 31.9 g/dL Low 32-36 RDW 14.5 % 11.2-15.2 PLT 357 x10E3/uL 135-420 MPV 7.9 fL 7.0-12.3 % Elicia 62.3 % 41.0-80.0 %Lym 32.5 % 10.0-45.2 %[place] 3.0 % 2.0-13.0 %Eos 1.3 % 0.0-8.0 %Baso 0.9 % 0.0-3.0 Neut 6.0 x10E3/uL 2.0-8.1 Lymp 3.1 x10E3/uL 0.6-3.1 [place] 0.3 x10E3/uL 0.0-1.0 Eos 0.1 x10E3/uL 0.0-0.6 Baso 0.1 x10E3/uL 0.0-0.2 BMP-Female 09/08/2020 [facility] [address] [address] [phone] Glucose 205 mg/dL High 74-106 1 BUN 10 mg/dL 6-20 Creatinine 0.8 mg/dL 0.5-1.3 Sodium 134 mmol/L Low 136-145 Potassium 5.2 mmol/L 3.5-5.3 Chloride 99 mmol/L 98-107 Co2 26 mEq/L 20-31 Anion Gap 9 mmol/L 7-16 eGFR-female 76 mL/m/1.73m - eGFR-Aa female 92 mL/m/1.73m - 2 Calcium 9.7 mg/dL 8.9-10.5 Laboratory test finding 09/08/2020 [facility] [address] [place] [phone] Magnesium 1.8 mg/dL 1.7-2.4 3 Phosphorus 3.3 mg/dL 2.7-4.5 4 PT-Inr 09/08/2020 [facility] [address] [place] [address] [phone] PT 44.6 Sec High 10.6-13.0 Inr 4.1 - 5 Laboratory test finding 09/08/2020 [facility] [address] [place] [address] [phone] Venipuncture DONE - 6 Laboratory test finding [facility] [address] [place] [address] [phone] Sars Covid-19 Amplification NEGATIVE Normal Nega tive 7 Coronavirus 2019 Nasopharygeal 05/24/[address] [address] [phone] Coronavirus 2019 Nasopharygeal Testing was perf <SEE N OTE> 8 Complete Blood Count 05/02/2020 [facility] enter [address] [place] [address] [phone] White Blood Count 6.9 10 Normal 4.0-10.0 [...] 0.0 % Normal 0-0 Differential Automated 05/02/[address] [id number] [phone] Neutrophils % 50.9 % Normal 36.0-66.0 Lymph % 39.5 % Normal 24.0-44.0 [place] % 5.5 % High 0.0-5.0 Eos % 2.9 % Normal 0.0-3.0 Baso % 0.9 % Normal 0.0-1.0 Immature Granulocyte % 0.3 % Normal 0-3.0 Neutrophils # 3.5 10 Normal 1.5-8.5 Lymph # 2.7 10 Normal 1.5-5.0 [place] # 0.4 10 Normal 0.0-0.8 Eos # 0.2 10 Normal 0.0-0.5 Baso # 0.1 10 Normal 0.0-0.2 Basic Metabolic Profile 05/02/[address] [address] [phone] Glucose, Fasting 205 mg/dL High 70-100 Blood [...] Calcium Level 9.0 mg/dL Normal 8.5-10.1 1 [place] [employer] n (ADA) Recommended Range is [...] Confirmed by Repeat Analysis. called to Geri Jennifer and transmitted 1206 josué 09/08/2020 * INR [...] pathogens. DISCLAIMER: Testing was performed using the [facility] SARS-CoV-2 test. This test was developed and its performance characteristics determined by [facility]. This test has not been FDA cleared [...] developed and its performance characteristics determined by [facility]. This test has not been FDA cleared [...] this assay. Performed at: RN - [facility] [address] [id number] Benefits Counselor: Alla Mcgregor MD, Phone: [phone] Not Detected 9 Units are mL/min/1.73 m2 Chronic Kidney Disease Staging per NKF: Stage I & II GFR >=60 Normal to Mildly Decreased Stage III GFR 30-59 Moderately Decreased Stage IV GFR 15-29 Severely Decreased Stage V GFR <15 Very Little GFR Left ESRD GFR <15 on TRAFFIC MANAGER Procedures Date Code Description Status 08/29/2020 29105 Laparoscopy Surg Gas t Restrict Procedure Longitudinal Gastrectomy Completed 06/12/2020 08925 Coronary Angiography With Left H eart Catheterization Completed 05/01/2020 33975 Echocardiography, Tranthoracic R eal-Time Image Documentation Completed 05/01/2020 78205 Echocardiography, Tranthoracic R eal-Time Image Documentation Completed 05/01/2020 87292 Cardiovascular Stress Test Inter pretation & Report Only Completed 05/01/2020 69457 Cardiovascular Stress Test Physi bryn Supervision Only Completed 05/01/2020 55930 Myocardial Perfusion Imaging Tomographic (Spect) Multiple Studies Completed Medical Devices Description No Information Available Encounters Type Date Location Provider Dx Diagnosis Office Visit 10/09/2020 10:30a [facility] [address] Surgical Services Danni Garcia NP Z09 Encntr for f/u exam aft trtmt for cond oth than malig neoplm Office Visit 09/08/2020 9:30a [facility] Danni Garcia NP E66.01 Morbid (severe) obesity due to excess calories E11.9 Type 2 diabetes mellitus wit hout complications Z79.01 USP (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 a nticoagulants Office Visit 09/01/2020 3:13a [facility] Prosper Cantrell DO Office Visit 08/30/2020 3:33a [facility] Delio Kim MD Office Visit 08/21/2020 12:30p [facility] Delio garcia MD E66.01 Morbid (severe) obesity due to excess ca lories I10 Essential (primary) hyperten livier E78.5 Hyperlipidemia, unspecified E11.9 Type 2 diabetes mellitus wit hout complications Z79.4 USP (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 i nsulin Z79.01 USP (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 a nticoagulants Z68.41 Body mass index [BMI]40.0-44 .9, adult Office Visit 07/24/2020 1:45p [facility] [place] Yariel donis MD Z01.810 Encounter for preprocedural cardiovascul ar examination I25.10 Athscl heart disease of [place] coronary artery w/o ang pctrs E78.5 Hyperlipidemia, unspecified I11.0 Hypertensive heart disease w ith heart failure I50.32 Chronic diastolic (congestiv e) heart failure E66.01 Morbid (severe) obesity due to excess calories R60.0 Localized edema Z79.02 long term care social worker (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 a ntithrombotics/antiplatelets Z82.49 Family hx of ischem heart di s and oth dis of the circ sys Z68.41 Body mass index (BMI) 40.0-4 4.9, adult Office Visit 07/21/2020 9:00a [facility] Surgical Services Danni Garcia NP I25.84 Coronary atherosclerosis due to calcified coronary lesion E66.01 Morbid (severe) obesity due to excess calories I11.9 Hypertensive heart disease w ithout heart failure E78.00 Pure hypercholesterolemia, u nspecified J44.9 Chronic obstructive pulmonar y disease, unspecified I73.9 Peripheral vascular disease, unspecified Z68.41 Body mass index (BMI) 40.0-4 4.9, adult Office Visit 06/09/2020 1:45p [facility] [place] Radha cali NP R94.39 Abnormal result of other cardiovascular function study R07.9 Chest pain, unspecified Z82.49 Family hx of ischem heart di s and oth dis of the circ sys Office Visit 05/01/2020 3:45p [facility] [place] Z01.810 Encounter for preprocedural cardiovascul [...] for conditions other than malignant neoplasm Danni Garcia, [employer] 09/08/2020 E66.01 Morbid (severe) obesity due to e xcess calories Danni Walker, [employer] 09/08/2020 E11.9 Type 2 diabetes mellitus without complications Danni Garcia, [employer] 09/08/2020 Z79.01 USP (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 antic oagulants Danni Garcia, [employer] 09/08/2020 E66.01 Morbid (severe) obesity due to e xcess calories [facility] 09/08/2020 Z79.01 long term care social worker (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 antic oagulants [facility] 09/08/2020 E66.01 Morbid (severe) obesity due to e xcess calories [facility] 09/08/2020 Z79.01 USP (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 antic oagulants [facility] 08/29/2020 E66.01 Morbid (severe) obesity due to e xcess calories Delio Kim MD 08/29/2020 E11.9 Type 2 diabetes mellitus without complications Delio Kim MD 08/29/2020 I10 Essential (primary) hypertension Delio Kim MD 08/29/2020 Z79.4 USP (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 insul in Delio Kim MD 08/29/2020 Z68.41 Body mass index [BMI]40.0-44.9, adult Delio Kim MD 08/21/2020 E66.01 Morbid (severe) obesity due to e xcess calories Delio Kim MD 08/21/2020 I10 Essential (primary) hypertension Delio Kim MD 08/21/2020 E78.5 Hyperlipidemia, unspecified Fidencio Kim MD 08/21/2020 E11.9 Type 2 diabetes mellitus without complications Delio Kim MD 08/21/2020 Z79.4 USP (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 insul in Delio Kim MD 08/21/2020 Z79.01 USP (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 antic oagulants Delio Kim MD 08/21/2020 Z68.41 Body mass index [BMI]40.0-44.9, adult Delio Kim MD 07/24/2020 Z01.810 Encounter for preprocedural card iovascular examination Yariel Lemon MD 07/24/2020 I25.10 Atherosclerotic hear t disease of [place] coronary artery without angina pectoris Yariel Lemon MD 07/24/2020 E78.5 Hyperlipidemia, unspecified Yariel Lemon MD 07/24/2020 I11.0 Hypertensive heart disease with heart failure Yariel Lemon MD 07/24/2020 I50.32 Chronic diastolic (congestive) h eart failure Yariel Lemon MD 07/24/2020 E66.01 Morbid (severe) obesity due to e xcess calories Yariel Lemon MD 07/24/2020 R60.0 Localized edema Yariel Lemon MD 07/24/2020 Z79.02 long term care social worker (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 antit hrombotics/antiplatelets Yariel Lemon [...] E78.00 Pure hypercholesterolemia, unspe cified Danni Garcia, CLIFF 07/21/2020 J44.9 Chronic obstructive pulmonary di sease, unspecified Danni Garcia, [employer] 07/21/2020 I73.9 Peripheral vascular disease, uns pecified Danni Garcia, CLIFF 07/21/2020 Z68.41 Body mass index (BMI) 40.0-44.9, adult Danni Garcia, CLIFF 06/12/2020 I25.10 Atherosclerotic hear t disease of [place] coronary artery without angina pectoris Ren Weaver [...] without complications Ren Weaver MD 06/12/2020 Z79.4 USP (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 insul in Ren Weaver MD 06/12/2020 Z79.01 USP (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 antic oagulants Ren Weaver [...] 05/01/2020 I25.119 Atherosclerotic hear t disease of [place] coronary artery with unspecified angina pectoris Yariel [...] 1:30 pm - Yariel Lemon MD at [facility] [place] 08/21/2020 - Delio Kim MD* E66.01 Morbid (severe) obesity due to excess calories* New Labs:* CBC W/Auto Differential, Ordered: 08/21/20 * CMP-Female, Ordered: 08/21/20 * Comments:* Ayaka has a long-standing history of morbid obesity.She has completed her bariatric program.She has had nutritional counseling.She has been seen and cleared by her psychologist.She has been seen and cleared by her triple drum operator for surgery.She will see her primary care [...] Labs:* CBC W/Auto Differential, Ordered: 08/21/20 * CMP-Female, Ordered: 08/21/20 * E11.9 Type 2 diabetes mellitus without complications* New Labs:* CBC W/Auto Differential, Ordered: 08/21/20 * [facility]-Female, Ordered: 08/21/20 * Z79.4 long term care social worker (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 insulin * Z79.01 USP (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 anticoagulants * Z68.41 Body mass index [BMI]40.0-44.9, adult Functional Status Description No Information Available Mental Status Description No Information Available Referrals Description No Information Available
--- OUTSIDE RECORDS SUMMARY | 2020-11-26 16:54 | CCD | Summary of Care ---
Author Author [facility] Organization [facility] Address Unknown Phone Unavailable Care Team Providers Care Technology Program Manager Name Role Phone Agustin Boogie MD PCP Reason for Referral * Consultation (Routine) Referred By Contact Referred To Contact Status Reason Specialty Diagnoses / Procedures Serafin Sampson MD [address] [place] [id number] Email: [email or web address] Jose Luis Perez MD [address] [place] [address] Dr Beard [address] [place] [phone] Authorized Specialty Services Gastroenterology Diagnoses Required Dysphagia, unspecified type Nutcracker esophagus Reason for Visit * Reason Comments Follow-up Encounter Details Care Team Description Date Type Department Serafin Sampson MD [address] [place] [id number] [phone] Dysphagia, unspecified type (Primary Dx) ; Seropositive rheumatoid arthritis; Nutcracker esophagus; Methotrexate, senior care, current use 09/29/2020 Telemedicine [facility] [[email or web address] Rheumatolog at [facility] [address], [address] [place] [phone] Allergies Comments Active Allergy Reactions Severity Noted Date Hydromorphone Hcl Anaphylaxis High 01/12/2016 Latex Rash Low 01/12/2016 documented as of this encounter (statuses as of 09/29/2020) Medications End Date Status Medication Sig Dispensed Refills Start Date Active metaxalone (SKELAXIN) 800 Take 800 mg 0 MG tablet by mouth Three times daily. Active lidocaine (LIDODERM) 5 % Place 1 patch 0 onto the skin every 24 (twenty-four) hours. Active furosemide (LASIX) 40 MG Take 40 mg by 0 tablet mouth daily. Active spironolactone Take 25 mg by 0 (ALDACTONE) 25 MG tablet mouth daily. Active Vitamin D, Take 50,000 0 Ergocalciferol, 15751 Units by UNITS CAPS mouth every other day. Active busPIRone (BUSPAR) 10 MG Take 20 mg by 0 tablet mouth Three times daily Active Apixaban (ELIQUIS PO) Take 5 mg by 0 mouth. Active omeprazole (PRILOSEC) 40 Take 40 mg by 0 MG capsule mouth daily. Active rosuvastatin (CRESTOR) 20 daily 0 04/10 0/201 MG tablet 8 Active gabapentin (NEURONTIN) Take 1 0 300 MG capsule capsule by 8 mouth [...] OneTouch (DELICA) MISC Use as 200 each 5 fine lancetsIndications: directed 6 8 Type 2 [...] Ondansetron 4 MG Oral DISSOLVE ONE 1 10/02/20 1 Tablet Disintegrating TABLET ON 9 (ZOFRAN-ODT) [...] and insulin titiration. Dx code: E11.65 Active Insulin Glargine (2 Unit Inject 80 120 mL 1 0 Dial) 300 UNIT/ML units under 0 Subcutaneous Solution the skin Pen-injector (Toujeo Max daily. MDD SoloStar)Indications: 102 units. Type 2 diabetes mellitus DX: E11.65 with hypoglycemia unawareness Additional Information Patient taking differently: Inject 88 units under the skin daily. MDD 102 units. DX: E11.65, Reported on 08/08/2020 10:30 AM Active Vitamin B-[address] under 0 Sublingual Tablet the tongue Sublingual daily Active Pediatric Multiple Take by mouth 0 Vit-C-FA (CHILDRENS CHEWABLE MULTI VITS PO) Active Ensure High Protein Oral Take by mouth 0 Powder daily Active Folic Acid 1 MG Oral Take 1 tablet 90 tablet 3 Tablet by mouth 0 (FOLVITE)Indications: daily Encounter for methotrexate monitoring Active levoFLOXacin 750 MG Oral Take 750 mg 0 Tablet (LEVAQUIN) by mouth daily Active Warfarin Sodium 7.5 MG Take 1 [...] rheumatoid mouth every 7 arthritis (seven) days 09/29/2020 Discontinued (Reorder) Methotrexate 2.5 MG Oral Take 8 96 tablet 3 0 TabletIndications: tablets by 0 Seropositive rheumatoid mouth every 7 arthritis (seven) days documented as of this encounter (statuses as of 09/29/2020) Active Problems Problem Noted Date Type 2 diabetes mellitus with peripheral neuropathy 08/08/2020 Vitamin D deficiency 06/17/2019 Type 2 diabetes mellitus with hypoglycemia unawarenes s 06/17/2019 Essential hypertension 09/22/2018 Type 2 diabetes mellitus with hyperglycemia, with colton g-term current use of 12/29/2017 insulin Dyslipidemia 09/19/2017 Obesity (BMI 30-39.9) 09/19/2017 Methotrexate, senior care, current use 01/26/2016 Polyarthritis 01/12/2016 History of recurrent miscarriages, not currently preg nant 01/12/2016 Malar rash 01/12/2016 Seropositive rheumatoid arthritis 01/12/2016 Pleurisy 01/12/2016 Lower leg DVT (deep venous thromboembolism), chronic 01/12/2016 Dysphagia 01/12/2016 Insulin long-term use 09/19/1997 Last Assessment & Plan: Long acting insulin: Toujeo 80 units at bedtime Humalog Pens: Meal dose plus correctio n Breakfast 12 units + correction factor Lunch 15 units + correction factor Supper 24 units + correction factor Correction Factor: 1:10 over 120 (bedti me 180) Do not give Humalog more then every 3 h ours Metformin ER 500 mg 1 tab with breakfas t and two tabs with dinner daily. Carb consistent diet Exercise daily Please check fingerstick glucose before each meal and bedtime and once a week At 2 am documented as of this encounter (statuses as of 09/29/2020) Resolved Problems Problem Noted Date Resolved Date Uncontrolled type 1 diabetes mellitus with hyperglycemia 1 11/19/2016 12/29/2017 Uncontrolled type 1 diabetes mellitus with hypoglycem ia without coma 09/19/2017 12/29/2017 Uncontrolled type 1 diabetes mellitus with diabetic p eripheral neuropathy 09/19/2017 12/29/2017 SLE (systemic lupus erythematosus) 01/12/201608/2016 Serositis 01/12/2016 01/18/2016 Diabetes type 2, uncontrolled 01/12/2016 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 01/12/2016 04/28/2018 documented as of this encounter (statuses as of 09/29/2020) Immunizations Name Administration Dates Next Due Pneumococcal [...] of this encounter Last Filed Vital Signs Not on filedocumented in this encounter Progress Notes * Serafin Sampson MD - 09/29/2020 10:30 AM EST Rheumatology Clinic Note Patient name: Ayaka Levine : 1970 PCP: Agustin Boogie MD Subjective The patient was informed of and understood the risks of telemedicine encouter including security breech, technological failure, inability to perform a physica l exam which could delay or prevent an accurate diagnosis, and potential complic ations from treatment decisions rendered over a telephonic platform. Nonetheless , she was advised that pyvu-jg-[id number] visit was not expected to bring more benefit s than harms in light of the ongoing COVID-19 pandemic, and provided a verbal co nsent to a telemedicine consultation as reported below. Reason for consultation: Follow-up rheumatoid arthritis History of Present Illness: Ms. Levine is [id number] woman who was originally evaluated in our clinic in [place] of 2016for 3-year history of symmetrical polyarthralgia. Physical exam showed synovitis. Additional clinical features; faical rash, phot osensitivity, pleurisy, and history of seizure with unclear etiology, raised a s uspicion for SLE; however, her BRIAN came back negative. Alternatively, she was fo und to have rheumatoid factor and erosive arthritis on X-ray. The patient was th usstarted on methotrexate. Her care has been challenged as she hasnot been able to follow with us consi stently. In January of 2019, her methotrexate was resumed, and the patient noted o verall improvement of arthritic symptoms. The patient developed open wound in her left foot summer 2019, she was put on pr otective boots, and abrasion with the boots led to open wounds in bilateral heel s. She opted to have laparoscopic sleeve gastrectomy for obesity and uncontroll ed diabetes 08/29/2020, for which she held her methotrexate 2 weeks prior. She noticed that her wound started to heal better after she held her methotrexate. After discussion with her PCP and her gastric bypass surgeon, she has not starte d methotrexate since end of August. She reports that her surgery went well, he r wounds had healed mostly except her left heel which has decreased over 50% in size, she is following wound care at [facility], she is not on any antibiotics. She reports she has lost 25 pounds since her surgery and her blood sugar is much better controlled now, she is on a soft diet and tolerated. 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 She denies a ny choking or aspiration episodes. Since of methotrexate, she reports she still has joint pressure in her fingers hips and knees, with morning stiffness lasting about an hour. She is using Tylenol 2 times a week to help with the pain. She was referred to dermatology for evaluation of migratory maculopapular rash, she has not been able to see dermatology. The patient has a history ofunprovoked DVT and has history of two miscarriag es, but her initial screening for lupus anticoagulant and antiphospholipid antib odies were negative. Review of systems: As noted above. The patient denied history of alopecia, oral ulcers, sicca, swel ling of parotid glands, xerostomia, postprandial abdominal pain, hematuria, and muscle weakness. The patient denied history of stroke, seizure, psychiatric illn ess, heart attack, renal disease, cytopenias, and venous thrombosis. The remaind er of the complete review of system was negative. Past Medical History: Past Medical History: Diagnosis Date Anxiety Asthma Basal cell carcinoma 2009 Diabetes Dyslipidemia Hepatomegaly Hypertension IBS (irritable bowel syndrome) Osteomyelitis PTSD (post-traumatic stress disorder) Seizure 1999 Loss of conciousness associated with jerking, eyes rolled up, tongue bite, and incontinence, Past Surgical History: Past Surgical History: Procedure Laterality Date APPENDECTOMY CHOLECYSTECTOMY 1995 HYSTERECTOMY, ABDOM, BILAT SALPINGO OOPHORECTOMY SHOULDER SURGERY Bilateral toe amp Right 2013 right foot 2nd toe Past Social History: Social History Socioeconomic History Marital status: Spouse name: Not on file Number of children: Not on file Years of education: Not on file Highest education level: Not on file Occupational History Not on file Social Needs Financial resource strain: Not on file Food insecurity Worry: Not on file Inability: Not on file Transportation needs Medical: Not on file Non-medical: Not on file Tobacco Use Smoking status: Former Smoker Packs/day: 1.00 Years: 9.00 Pack years: 9.00 Quit date: 01/11/2002 Years since quittin.7 Smokeless tobacco: Never Used Substance and Sexual Activity Alcohol use: Yes Alcohol/week: 0.0 standard drinks Comment: rare Drug use: No Sexual activity: Not on file Lifestyle Physical activity Days per week: Not on file Minutes per session: Not on file Stress: Not on file Relationships Social connections Talks on phone: Not on file Gets together: Not on file Attends christian service: Not on file Active member of club or organization: Not on file Attends meetings of clubs or organizations: Not on file Relationship status: Not on file Intimate partner violence Fear of current or ex partner: Not on file Emotionally abused: Not on file Physically abused: Not on file Forced sexual activity: Not on file Other Topics Concern Not on file Social History Narrative Not on file Family History: Family History Problem Relation Age of Onset Lupus Cousin Crohn's disease Cousin Psoriasis Son Cancer Mother COPD Mother Heart disease Mother Thyroid disease Sister hypo Diabetes Maternal Aunt Thyroid cancer Neg Hx Medications: Current Outpatient Medications Medication Sig Dispense Refill Apixaban (ELIQUIS PO) Take 5 mg by mouth. busPIRone (BUSPAR) 10 MG tablet Take 20 mg by mouth Three times daily ciclopirox (PENLAC) 8 % solution daily 3 Ensure High Protein Oral Powder Take by mouth daily Folic Acid 1 MG Oral Tablet (FOLVITE) Take 1 tablet by mouth daily 90 tab let 3 furosemide (LASIX) 40 MG tablet Take 40 mg by mouth daily. gabapentin (NEURONTIN) 300 MG capsule Take 1 capsule by mouth Take one ca psule with breakfast ,one cap with lunch, and two capsules at bedtime 0 glucagon (GLUCAGON EMERGENCY) 1 MG injection Inject 1 mg IM as directed a s needed. DX E11.65 2 each 1 Insulin Glargine (2 Unit Dial) 300 UNIT/ML Subcutaneous Solution Pen-inje ctor (Toujeo Max SoloStar) Inject 80 units under the skin daily. MDD 102 units. DX: E11.65 (Patient taking differently: Inject 88 units under the skin daily. MD Robison 102 units. DX: E11) 120 mL 1 Insulin Lispro (1 Unit Dial) 100 UNIT/ML Subcutaneous Solution Pen-inject or (HUMALOG KWIKPEN) Inject subq 3 times daily per insulin orders. Max Daily Do se: 55 units inclusive of priming and titiration. Dx code: E11.65 60 mL 1 Levocetirizine Dihydrochloride (XYZAL PO) Take by mouth daily levoFLOXacin 750 MG Oral Tablet (LEVAQUIN) Take 750 mg by mouth daily lidocaine (LIDODERM) 5 % Place 1 patch onto the skin every 24 (twenty-fou r) hours. losartan (COZAAR) 50 MG tablet Take 50 mg by mouth daily metaxalone (SKELAXIN) 800 MG tablet Take 800 mg by mouth Three times jami y. metFORMIN HCl ER 500 MG Oral Tablet [...] 6 HOURS NEEDED FOR NAUSEA 1 OneTouch (DELThe [employer] Foundation) MISC fine lancets Use as directed 6 times daily 200 eac h 5 ONETOUCH VERIO test strip Use as instructed 6 times daily 200 each 5 OneTouch Verio w/Device Kit 1 each by Does not apply route daily DX E 11 1 kit 0 Pediatric Multiple Vit-C-FA (CHILDRENS CHEWABLE MULTI VITS PO) Take by mo uth rosuvastatin (CRESTOR) 20 MG tablet daily spironolactone (ALDACTONE) 25 MG tablet Take 25 mg by mouth daily. sumatriptan (IMITREX) 50 MG tablet as needed 1 TORSEMIDE PO Take 20 mg by mouth daily tramadol (ULTRAM) 50 MG tablet TAKE ONE [...] under the tongue daily Vitamin D, Ergocalciferol, 98106 UNITS CAPS Take 50,000 Units by mouth ev scot other day. Warfarin Sodium 5 MG Oral Tablet (COUMADIN) Take one tablet Friday by Warfarin Sodium 7.5 MG Oral Tablet (COUMADIN) Take 1 tablet by mouth -Friday zolpidem (AMBIEN) 5 MG tablet TAKE ONE TABLET BY MOUTH ONCE A DAY AT BEDT AVNI NEEDED FOR INSOMNIA MAXIMUM DAILY DOSE 1 TABLET 0 No current facility-administered medications for this visit. Review of Systems: Review of Systems Constitutional: Negative. HENT: Negative. Eyes: Negative. Respiratory: Negative. Cardiovascular: Negative. Gastrointestinal: Negative. Endocrine: Negative. Genitourinary: Negative. Musculoskeletal: Positive for arthralgias. Skin: Positive for rash. Allergic/Immunologic: Negative. Neurological: Negative. Hematological: Negative. Psychiatric/Behavioral: Negative. Objective There were no vitals filed for this visit. PHYSICAL EXAM (visual only) The patient is not in acute distress. Constitutional: The patient is oriented to person, place, and time. The patient appears well-developed and well-nourished. No acute distress. HENT: The patient is not cushingoid. No facial redness. The patient is not in acute distress. No facial droop. Head: Normal looking, no alopecia. Right Ear: External ear normal. Left Ear: External ear normal. Nose: Nose normal. Mouth: no obvious swelling, can open normally. Eyes: The patient can close normally. Right eye exhibits no discharge. Left eye exhibits no discharge Neck: Normal range of motion. Neck supple. Cardiovascular: no cyanosis, not in distress while lying down. Pulmonary/Chest: Effort is not labored. Abdominal: The patient exhibits no distension. Musculoskeletal: The patient exhibits no swelling in upper and lower extremity j oints. Neurological: The patient is alert and oriented to person, place, and time. No facial droop. Exhibits normal muscle bulk. Coordination normal. Skin: No rash noted. No erythema. Psychiatric: Judgment and thought content normal. 06/2020 WBC 6.9, hemoglobin 12.3, platelet 299, creatinine 0.73, AST 15, ALT 27, alk phos 74. Given the current pandemic, to minimize exposure to healthcare facility, we have asked her to send us her blood results from 08/2020. Assessment & Plan Summary: Ms. Levine is [id number] woman presenting with 3-year his tory of multisystem illness characterized by polyarthritis, faical rash, photose nsitivity, pleurisy, unprovoked DVT, miscarriages, and seizure disorder. Her ser ologies were essentially negative except for mildly elevated rheumatoid factor. She noted improvement of arthritic symptoms on methotrexate. Several months ago, she developed non-healing lower extremity ulcers. In association with improved glucose control following the recent bariatric surgery, her wounds have signific antly improved. 1.Erosiverheumatoidarthirits: Methotrexate was stopped two weeks prior to the bariatric surgery. Following the surgery, her glucose control has significantly improved in association with sub stantial weight loss. Her wounds have also improved. The patient wonders if meth otrexate has contributed to the would development or poor would healing. However , methotrexate-induced cutaneous ulcers are generally more wide spread, and most patients have mucosal involvement whereas her ulcers were confined to the distal legs. Based on the clinical course, poor glucose control was the most likely d river of would development and poor would healing. We thus advised the patient t o resume methotrexate 20 mg once weekly along with folic acid 1 mg once daily. W e encouraged the patient to let us know should her ulcers recur. The patient nakul balized her understanding and agreed with the plans. 2. Migratory maculopapular rash: Given her diabetes, impetigo deserves to be considered. The patient missed the a ppointment in our Dermatology clinic. We will help her reschedule it. 3. Nutcracker esophagus: We referred her to our Gastroenterology service. 4. Toxicity monitoring for methotrexate: * Mucosal and gastrointestinal toxicities: I advised the patient to start Folic acid 1mg PO daily. * Liver and bone marrow toxicities: I advised the patient to comply with lab mon itoring (CBC and liver function panel) in our clinic every 2-3 months. * Pulmonary toxicities: The patient was instructed to notify us should she note worsening cough, dyspnea, or chest pain. * Increased susceptibility to infections:The patient has received 13-& 23-valent pneumococcal and annual flu vaccines. The patient was instructed t o notify us in case she develops any signs of infections. Given the current pand emic, it is imperative to minimize her number of visits to healthcare facilities . We asked her to send us the results of blood work from 08/2020. RTC: 3M The patient was seen with the attending, Dr Barron. Serafin Sampson MD Rheumatology Fellow, PGY-4 [facility] Attending addendum: I saw and evaluated the patient. Discussed with the resident and agree with the residents findings and plans as written, along with any supplemental dictated a nd/or attending documentation in the patient record by myself. I spent a total of 40 minutes for the care of this patient today, more than half of which was sp ent discussing the issues as documented above in my assessment and plan. documented in this encounter Plan of Treatment Care Team Description Date Type Specialty Riaz Fisher PA [address] [place] [address] [phone] 11/14/2020 Office Visit Endocrinology Riaz Fisher PA [address] [place] [address] [phone] 02/15/2021 Office Visit Endocrinology Ina Quevedo MD [address] [place] [address] [phone] 06/05/2021 Office Visit Endocrinology Order Schedule Name Type Priority Associated Diag noses Ordered: 09/29/2020 Referral to Outpatient Routine Dysphagia, unsp ecified Gastroenterology Referral type Nutcracker esophagus Health Maintenance Due Date Last Done Comments [...] filedocumented in this encounter Visit Diagnoses Diagnosis Dysphagia, unspecified type - Primary Seropositive rheumatoid arthritis Rheumatoid arthritis Nutcracker esophagus Dyskinesia of esophagus Methotrexate, senior care, current use Encounter for long-term (current) use o f other medications documented in this encounter
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
--- OUTSIDE RECORDS SUMMARY | 2020-11-26 16:54 | CCD | Continuity of Care Document ---
Author Author Ayaka GARCIA PATTERN MARKING SUPERVISOR Organization Unknown Address [address], [address] [place] [address] Phone [phone] Care Team Providers Care Silk Opener Name Role Phone Agustin Boogie MD AUTM [phone] Alvaro Barry M.D. AUTM [phone] Yariel Lemon MD AUTM [phone] Delio Kim M.D. AUTM Problems Active Problems Provider Date Morbid obesity Danni Garcia PATTERN MARKING SUPERVISOR Onset: 07/21/2020 Hyperlipidemia Danni Garcia, PATTERN MARKING SUPERVISOR Onset: 07/21/2020 Anemia Danni Garcia, PATTERN MARKING SUPERVISOR Onset: 07/21/2020 Deep venous thrombosis Danni Garcia PATTERN MARKING SUPERVISOR Onset: 07/21/2020 Depressive disorder Danni Garcia PATTERN MARKING SUPERVISOR Onset: 07/21/2020 Diabetes mellitus Danni Garcia PATTERN MARKING SUPERVISOR Onset: 07/21/2020 Essential hypertension Danni Garcia PATTERN MARKING SUPERVISOR Onset: 07/21/2020 Irritable bowel syndrome Danni Garcia PATTERN MARKING SUPERVISOR Onset: 07/21/20 20 Gastroesophageal reflux disease Danni Garcia NP Onset: 0 07/21/2020 Social History Type Date [...] directed followed by PCP Dr Boogie in [place] Unknown Ergocalciferol 1.25mg (84467 Ut) C apsules take one capsule 3 [...] Test Result H/L Range Note Cbcadp 09/08/2020 [facility] [address] [place] [address] [phone] WBC. 9.63 x10E3/uL 4.2-12.0 RBC 4.75 x10E6/uL 3.9-5.4 HGB 13.5 g/dL 12.0-16.0 HCT 42.3 % 36-47 MCV 89.2 fL 80-98 MCH 28.5 pg 27-33 MCHC 31.9 g/dL Low 32-36 RDW 14.5 % 11.2-15.2 PLT 357 x10E3/uL 135-420 MPV 7.9 fL 7.0-12.3 % Elicia 62.3 % 41.0-80.0 %Lym 32.5 % 10.0-45.2 %[place] 3.0 % 2.0-13.0 %Eos 1.3 % 0.0-8.0 %Baso 0.9 % 0.0-3.0 Neut 6.0 x10E3/uL 2.0-8.1 Lymp 3.1 x10E3/uL 0.6-3.1 [place] 0.3 x10E3/uL 0.0-1.0 Eos 0.1 x10E3/uL 0.0-0.6 Baso 0.1 x10E3/uL 0.0-0.2 BMP-Female 09/08/2020 [facility] [address] [place] [address] [phone] Glucose 205 mg/dL High 74-106 1 BUN 10 mg/dL 6-20 Creatinine 0.8 mg/dL 0.5-1.3 Sodium 134 mmol/L Low 136-145 Potassium 5.2 mmol/L 3.5-5.3 Chloride 99 mmol/L 98-107 Co2 26 mEq/L 20-31 Anion Gap 9 mmol/L 7-16 eGFR-female 76 mL/m/1.73m - eGFR-Aa female 92 mL/m/1.73m - 2 Calcium 9.7 mg/dL 8.9-10.5 Laboratory test finding 09/08/2020 [facility] [address] [place] [address] [phone] Magnesium 1.8 mg/dL 1.7-2.4 3 Phosphorus 3.3 mg/dL 2.7-4.5 4 PT-Inr 09/08/2020 [facility] [address] [place] [address] [phone] PT 44.6 Sec High 10.6-13.0 Inr 4.1 - 5 Laboratory test finding 09/08/2020 [facility] [address] [place] [address] [phone] Venipuncture DONE - 6 Laboratory test finding 2020 [facility] [address] [place] [address] [phone] Sars Covid-19 Amplification NEGATIVE Normal Nega tive 7 Coronavirus 2019 Nasopharygeal 05/24/[address] [address] [phone] Coronavirus 2019 Nasopharygeal Testing was perf <SEE N OTE> 8 Complete Blood Count 05/02/2020 [facility] [address] [place] [address] [phone] White Blood Count 6.9 10 Normal 4.0-10.0 [...] 0.0 % Normal 0-0 Differential Automated 05/02/[address] [address] [phone] Neutrophils % 50.9 % Normal 36.0-66.0 Lymph % 39.5 % Normal 24.0-44.0 [place] % 5.5 % High 0.0-5.0 Eos % 2.9 % Normal 0.0-3.0 Baso % 0.9 % Normal 0.0-1.0 Immature Granulocyte % 0.3 % Normal 0-3.0 Neutrophils # 3.5 10 Normal 1.5-8.5 Lymph # 2.7 10 Normal 1.5-5.0 [place] # 0.4 10 Normal 0.0-0.8 Eos # 0.2 10 Normal 0.0-0.5 Baso # 0.1 10 Normal 0.0-0.2 Basic Metabolic Profile 05/02/[address] [address] [phone] Glucose, Fasting 205 mg/dL High 70-100 Blood [...] Calcium Level 9.0 mg/dL Normal 8.5-10.1 1 [place] [employer] n (ADA) Recommended Range is [...] pathogens. DISCLAIMER: Testing was performed using the [employer] SARS-CoV-2 test. This test was developed and its performance characteristics determined by [employer]. This test has not been FDA cleared [...] developed and its performance characteristics determined by [employer]. This test has not been FDA cleared [...] this assay. Performed at: RN - [facility] [address] [id number] Floor Layer Apprentice: Alla Mcgregor MD, Phone: [phone] Not Detected 9 Units are mL/min/1.73 m2 Chronic Kidney Disease Staging per NKF: Stage I & II GFR >=60 Normal to Mildly Decreased Stage III GFR 30-59 Moderately Decreased Stage IV GFR 15-29 Severely Decreased Stage V GFR <15 Very Little GFR Left ESRD GFR <15 on POLICE [employer]GE[employer]CIN[employer] Procedures Date Code Description Status 08/29/2020 42516 Laparoscopy Surg Gas t Restrict Procedure Longitudinal Gastrectomy Completed 06/12/2020 03683 Coronary Angiography With Left H eart Catheterization Completed 05/01/2020 58858 Echocardiography, Tranthoracic R eal-Time Image Documentation Completed 05/01/2020 53690 Echocardiography, Tranthoracic R eal-Time Image Documentation Completed 05/01/2020 79937 Cardiovascular Stress Test Inter pretation & Report Only Completed 05/01/2020 96372 Cardiovascular Stress Test Physi bryn Supervision Only Completed 05/01/2020 78366 Myocardial Perfusion Imaging Tomographic (Spect) Multiple Studies Completed Medical Devices Description No Information Available Encounters Type Date Location Provider Dx Diagnosis Office Visit 09/08/2020 9:30a [facility] Danni Garcia NP E66.01 Morbid (severe) obesity due to excess calories E11.9 Type 2 diabetes mellitus wit hout complications Z79.01 exterminator helper termite (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 a nticoagulants Office Visit 09/01/2020 3:13a [facility] Prosper Cantrell DO Office Visit 08/30/2020 3:33a [facility] Delio Kim MD Office Visit 08/21/2020 12:30p [facility] Delio garcia MD E66.01 Morbid (severe) obesity due to excess ca lories I10 Essential (primary) hyperten livier E78.5 Hyperlipidemia, unspecified E11.9 Type 2 diabetes mellitus wit hout complications Z79.4 exterminator helper termite (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 i nsulin Z79.01 [facility] (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 a nticoagulants Z68.41 Body mass index [BMI]40.0-44 .9, adult Office Visit 07/24/2020 1:45p [facility] Gris donis MD Z01.810 Encounter for preprocedural cardiovascul ar examination I25.10 Athscl heart disease of [place] ve coronary artery w/o ang pctrs E78.5 Hyperlipidemia, unspecified I11.0 Hypertensive heart disease w ith heart failure I50.32 Chronic diastolic (congestiv e) heart failure E66.01 Morbid (severe) obesity due to excess calories R60.0 Localized edema Z79.02 exterminator helper termite (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 a ntithrombotics/antiplatelets Z82.49 Family hx of ischem heart di s and oth dis of the circ sys Z68.41 Body mass index (BMI) 40.0-4 4.9, adult Office Visit 07/21/2020 9:00a [facility] Danni Garcia NP I25.84 Coronary atherosclerosis due to calcified coronary lesion E66.01 Morbid (severe) obesity due to excess calories I11.9 Hypertensive heart disease w ithout heart failure E78.00 Pure hypercholesterolemia, u nspecified J44.9 Chronic obstructive pulmonar y disease, unspecified I73.9 Peripheral vascular disease, unspecified Z68.41 Body mass index (BMI) 40.0-4 4.9, adult Office Visit 06/09/2020 1:45p [facility] Radha cali NP R94.39 Abnormal result of other cardiovascular function study R07.9 Chest pain, unspecified Z82.49 Family hx of ischem heart di s and oth dis of the circ sys Office Visit 05/01/2020 3:45p [facility] Girs donis MD Z01.810 Encounter for preprocedural cardiovascul ar examination E78.5 Hyperlipidemia, unspecified I25.119 Athscl heart disease of [place] cor art w unsp ang pctrs I10 Essential (primary) hyperten livier Z82.49 Family hx of ischem heart di s and oth dis of the circ sys Assessments Date Code Description Provider 09/08/2020 E66.01 Morbid (severe) obesity due to e xcess calories Danni Garcia NP 09/08/2020 E11.9 Type 2 diabetes mellitus without complications Danni Garcia, CLIFF 09/08/2020 Z79.01 [facility] (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 antic oagulants Danni Garcia, CLIFF 09/08/2020 E66.01 Morbid (severe) obesity due to e xcess calories [facility] 09/08/2020 Z79.01 [facility] (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 antic oagulants [facility] 09/08/2020 E66.01 Morbid (severe) obesity due to e xcess calories [facility] 09/08/2020 Z79.01 [facility] (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 antic oagulants [facility] 08/29/2020 E66.01 Morbid (severe) obesity due to e xcess calories Delio Kim MD 08/29/2020 E11.9 Type 2 diabetes mellitus without complications Delio Kim MD 08/29/2020 I10 Essential (primary) hypertension Delio Kim MD 08/29/2020 Z79.4 [facility] (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 insul in Delio Kim MD 08/29/2020 Z68.41 Body mass index [BMI]40.0-44.9, adult Delio Kim MD 08/21/2020 E66.01 Morbid (severe) obesity due to e xcess calories Delio Kim MD 08/21/2020 I10 Essential (primary) hypertension Delio Kim MD 08/21/2020 E78.5 Hyperlipidemia, unspecified Fidencio Kim MD 08/21/2020 E11.9 Type 2 diabetes mellitus without complications Delio Kim MD 08/21/2020 Z79.4 [facility] (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 insul in Delio Kim MD 08/21/2020 Z79.01 exterminator helper termite (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 antic oagulants Delio Kim MD 08/21/2020 Z68.41 Body mass index [BMI]40.0-44.9, adult Delio Kim MD 07/24/2020 Z01.810 Encounter for preprocedural card iovascular examination Yariel Lemon MD 07/24/2020 I25.10 Atherosclerotic hear t disease of [place] coronary artery without angina pectoris Yariel Lemon MD 07/24/2020 E78.5 Hyperlipidemia, unspecified Yariel Lemon MD 07/24/2020 I11.0 Hypertensive heart disease with heart failure Yariel Lmeon MD 07/24/2020 I50.32 Chronic diastolic (congestive) h eart failure Yariel Lemon MD 07/24/2020 E66.01 Morbid (severe) obesity due to e xcess calories Yariel Lemon MD 07/24/2020 R60.0 Localized edema Yariel Lemon MD 07/24/2020 Z79.02 exterminator helper termite (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 antit hrombotics/antiplatelets Yariel Lemon MD 07/24/2020 Z82.49 Family history of is chemic heart disease and other diseases of the circulatory system Yariel Lemon MD 07/24/2020 Z68.41 Body mass index (BMI) 40.0-44.9, adult Yariel Lemon MD 07/21/2020 I25.84 Coronary atherosclerosis due to calcified coronary lesion Danni Garcia, CLIFF 07/21/2020 E66.01 Morbid (severe) obesity due to e xcess calories Danni Garcia, PATTERN MARKING SUPERVISOR 07/21/2020 I11.9 Hypertensive heart disease witho ut heart failure Danni Garcia, PATTERN MARKING SUPERVISOR 07/21/2020 E78.00 Pure hypercholesterolemia, unspe cified Danni Garcia, PATTERN MARKING SUPERVISOR 07/21/2020 J44.9 Chronic obstructive pulmonary di sease, unspecified Danni Garcia, PATTERN MARKING SUPERVISOR 07/21/2020 I73.9 Peripheral vascular disease, uns pecified Danni Garcia, PATTERN MARKING SUPERVISOR 07/21/2020 Z68.41 Body mass index (BMI) 40.0-44.9, adult Danni Garcia, PATTERN MARKING SUPERVISOR 06/12/2020 I25.10 Atherosclerotic hear t disease of [place] coronary artery without angina pectoris Ren Weaver [...] without complications Ren Weaver MD 06/12/2020 Z79.4 [facility] (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 insul in Ren Weaver MD 06/12/2020 Z79.01 [facility] (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 antic oagulants Ren Weaver [...] 05/01/2020 I25.119 Atherosclerotic hear t disease of [place] coronary artery with unspecified angina pectoris Yariel [...] of nicotine dep endence Yariel Lemon MD Plan of Treatment Future Appointment(s):* 01/22/2021 1:30 pm - Yariel Lemon MD at [facility] Functional Status Description No Information Available Mental Status Description No Information Available Referrals Description No Information Available
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
--- OUTSIDE RECORDS SUMMARY | 2020-11-26 16:55 | CCD | Continuity of Care Document ---
Author Author Ayaka GARCIA ELECTRIC DISTRIBUTION ENGINEER Organization Unknown Address [address], [address] [place] [address] Phone [phone] Care Team Providers Care Grinder Set Up Operator External Name Role Phone Agustin Boogie MD AUTM [phone] Alvaro Barry M.D. AUTM [phone] Yariel Lemon MD AUTM [phone] Delio Kim M.D. AUTM [phone] Problems Active Problems Provider Date Morbid obesity Danni Garcia ELECTRIC DISTRIBUTION ENGINEER Onset: 07/21/2020 Hyperlipidemia Danni Garcia, ELECTRIC DISTRIBUTION ENGINEER Onset: 07/21/2020 Anemia Danni Garcia, ELECTRIC DISTRIBUTION ENGINEER Onset: 07/21/2020 Deep venous thrombosis Danni Garcia ELECTRIC DISTRIBUTION ENGINEER Onset: 07/21/2020 Depressive disorder Danni Garcia ELECTRIC DISTRIBUTION ENGINEER Onset: 07/21/2020 Diabetes mellitus Danni Garcia ELECTRIC DISTRIBUTION ENGINEER Onset: 07/21/2020 Essential hypertension Danni Garcia ELECTRIC DISTRIBUTION ENGINEER Onset: 07/21/2020 Irritable bowel syndrome Danni Garcia ELECTRIC DISTRIBUTION ENGINEER Onset: 07/21/20 20 Gastroesophageal reflux disease Danni [...] directed followed by PCP Dr Boogie in [place] Unknown Ergocalciferol 1.25mg (94821 Ut) C apsules take one capsule 3 [...] Test Result H/L Range Note Cbcadp 09/08/2020 [facility] [address] [place] [address] [phone] WBC. 9.63 x10E3/uL 4.2-12.0 RBC 4.75 x10E6/uL 3.9-5.4 HGB 13.5 g/dL 12.0-16.0 HCT 42.3 % 36-47 MCV 89.2 fL 80-98 MCH 28.5 pg 27-33 MCHC 31.9 g/dL Low 32-36 RDW 14.5 % 11.2-15.2 PLT 357 x10E3/uL 135-420 MPV 7.9 fL 7.0-12.3 % Elicia 62.3 % 41.0-80.0 %Lym 32.5 % 10.0-45.2 %[place] 3.0 % 2.0-13.0 %Eos 1.3 % 0.0-8.0 %Baso 0.9 % 0.0-3.0 Neut 6.0 x10E3/uL 2.0-8.1 Lymp 3.1 x10E3/uL 0.6-3.1 [place] 0.3 x10E3/uL 0.0-1.0 Eos 0.1 x10E3/uL 0.0-0.6 Baso 0.1 x10E3/uL 0.0-0.2 BMP-Female 09/08/2020 [facility] [address] [place] [address] [phone] Glucose 205 mg/dL High 74-106 1 BUN 10 mg/dL 6-20 Creatinine 0.8 mg/dL 0.5-1.3 Sodium 134 mmol/L Low 136-145 Potassium 5.2 mmol/L 3.5-5.3 Chloride 99 mmol/L 98-107 Co2 26 mEq/L 20-31 Anion Gap 9 mmol/L 7-16 eGFR-female 76 mL/m/1.73m - eGFR-Aa female 92 mL/m/1.73m - 2 Calcium 9.7 mg/dL 8.9-10.5 Laboratory test finding 09/08/2020 [facility] [address] [place] [address] [phone] Magnesium 1.8 mg/dL 1.7-2.4 3 Phosphorus 3.3 mg/dL 2.7-4.5 4 PT-Inr 09/08/2020 [facility] [address] [place] [address] [phone] PT 44.6 Sec High 10.6-13.0 Inr 4.1 - 5 Laboratory test finding 09/08/2020 [facility] [address] [place] [address] [phone] Venipuncture DONE - 6 Laboratory test finding 2020 [facility] [address] [place] [address] [phone] Sars Covid-19 Amplification NEGATIVE Normal Nega tive 7 Coronavirus 2019 Nasopharygeal 05/24/[address] [address] [phone] Coronavirus 2019 Nasopharygeal Testing was perf <SEE N OTE> 8 Complete Blood Count 05/02/2020 [facility] enter [address] [place] [address] [phone] White Blood Count 6.9 10 Normal 4.0-10.0 [...] 0.0 % Normal 0-0 Differential Automated 05/02/[address] [address] [phone] Neutrophils % 50.9 % Normal 36.0-66.0 Lymph % 39.5 % Normal 24.0-44.0 [place] % 5.5 % High 0.0-5.0 Eos % 2.9 % Normal 0.0-3.0 Baso % 0.9 % Normal 0.0-1.0 Immature Granulocyte % 0.3 % Normal 0-3.0 Neutrophils # 3.5 10 Normal 1.5-8.5 Lymph # 2.7 10 Normal 1.5-5.0 [place] # 0.4 10 Normal 0.0-0.8 Eos # 0.2 10 Normal 0.0-0.5 Baso # 0.1 10 Normal 0.0-0.2 Basic Metabolic Profile 05/02/[address] [address] [phone] Glucose, Fasting 205 mg/dL High 70-100 Blood [...] Calcium Level 9.0 mg/dL Normal 8.5-10.1 1 [employer] Diabetes [employer] n (ADA) Recommended Range is [...] pathogens. DISCLAIMER: Testing was performed using the [employer] SARS-CoV-2 test. This test was developed and its performance characteristics determined by [facility] [facility]. This test has not been FDA cleared [...] developed and its performance characteristics determined by [employer]. This test has not been FDA cleared [...] this assay. Performed at: RN - [facility] [address] [id number] Organ Assembler: Alla Mcgregor MD, Phone: [phone] Not Detected 9 Units are mL/min/1.73 m2 Chronic Kidney Disease Staging per NKF: Stage I & II GFR >=60 Normal to Mildly Decreased Stage III GFR 30-59 Moderately Decreased Stage IV GFR 15-29 Severely Decreased Stage V GFR <15 Very Little GFR Left ESRD GFR <15 on PLANETARIUM TECHNICIAN Procedures Date Code Description Status 08/29/2020 94192 Laparoscopy Surg Gas t Restrict Procedure Longitudinal Gastrectomy Completed 06/12/2020 09570 Coronary Angiography With Left H eart Catheterization Completed 05/01/2020 46169 Echocardiography, Tranthoracic R eal-Time Image Documentation Completed 05/01/2020 10858 Echocardiography, Tranthoracic R eal-Time Image Documentation Completed 05/01/2020 37842 Cardiovascular Stress Test Inter pretation & Report Only Completed 05/01/2020 33818 Cardiovascular Stress Test Physi bryn Supervision Only Completed 05/01/2020 32461 Myocardial Perfusion Imaging Tomographic (Spect) Multiple Studies Completed Medical Devices Description No Information Available Encounters Type Date Location Provider Dx Diagnosis Office Visit 09/08/2020 9:30a [facility] Danni Garcia NP E66.01 Morbid (severe) obesity due to excess calories E11.9 Type 2 diabetes mellitus wit hout complications 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 (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 a nticoagulants Office Visit 09/01/2020 3:13a [facility] Surgical Services Prosper Cantrell DO Office Visit 08/30/2020 3:33a [facility] Services Delio Kim MD Office Visit 08/21/2020 12:30p [facility] Services Delio garcia MD E66.01 Morbid (severe) obesity due to excess ca lories I10 Essential (primary) hyperten livier E78.5 Hyperlipidemia, unspecified E11.9 Type 2 diabetes mellitus wit hout complications Z79.4 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 operator truck driver (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 i nsulin Z79.01 long-term (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 a nticoagulants Z68.41 Body mass index [BMI]40.0-44 .9, adult Office Visit 07/24/2020 1:45p [facility] AT [facility] Gris donis MD Z01.810 Encounter for preprocedural cardiovascul ar examination I25.10 Athscl heart disease of arnoldo ve coronary artery w/o ang pctrs E78.5 Hyperlipidemia, unspecified I11.0 Hypertensive heart disease w ith heart failure I50.32 Chronic diastolic (congestiv e) heart failure E66.01 Morbid (severe) obesity due to excess calories R60.0 Localized edema Z79.02 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 operator truck driver (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 a ntithrombotics/antiplatelets Z82.49 Family [...] Office Visit 06/09/2020 1:45p [facility] AT [place] Radha cali NP R94.39 Abnormal result of other cardiovascular function study R07.9 Chest pain, unspecified Z82.49 Family hx of ischem heart di s and oth dis of the circ sys Office Visit 05/01/2020 3:45p [facility]MP Cardiology AT [facility] Gris donis MD Z01.810 Encounter for preprocedural cardiovascul ar examination E78.5 Hyperlipidemia, unspecified I25.119 Athscl heart disease of arnoldo ve cor art w unsp ang pctrs I10 Essential (primary) hyperten livier Z82.49 Family hx of ischem heart di s and oth dis of the circ sys Office Visit 03/22/2020 10:30a [facility] Danni Garcia NP E66.01 Morbid (severe) obesity due to excess calories I89.0 Lymphedema, not elsewhere cl assified E78.5 Hyperlipidemia, unspecified K21.9 Gastro-esophageal reflux dis ease without esophagitis I10 Essential (primary) hyperten livier E11.9 Type 2 diabetes mellitus wit hout complications Assessments Date Code Description Provider 09/08/2020 E66.01 Morbid (severe) obesity due to e xcess calories Danni Garcia, ELECTRIC DISTRIBUTION ENGINEER 09/08/2020 E11.9 Type 2 diabetes mellitus without complications Danni Garcia, ELECTRIC DISTRIBUTION ENGINEER 09/08/2020 Z79.01 long-term (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 antic oagulants Danni Garcia, ELECTRIC DISTRIBUTION ENGINEER 09/08/2020 E66.01 Morbid (severe) obesity due to e xcess calories [facility] 09/08/2020 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 (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 antic oagulants [facility] 09/08/2020 E66.01 Morbid (severe) obesity due to e xcess calories [facility] 09/08/2020 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 (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 antic oagulants [facility] 08/29/2020 E66.01 Morbid (severe) obesity due to e xcess calories Delio Kim MD 08/29/2020 E11.9 Type 2 diabetes mellitus without complications Delio Kim MD 08/29/2020 I10 Essential (primary) hypertension Delio Kim MD 08/29/2020 Z79.4 long-term (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 insul in Delio Kim MD 08/29/2020 Z68.41 Body mass index [BMI]40.0-44.9, adult Delio Kim MD 08/21/2020 E66.01 Morbid (severe) obesity due to e xcess calories Delio Kim MD 08/21/2020 I10 Essential (primary) hypertension Delio Kim MD 08/21/2020 E78.5 Hyperlipidemia, unspecified Fidencio Kim MD 08/21/2020 E11.9 Type 2 diabetes mellitus without complications Delio Kim MD 08/21/2020 Z79.4 long-term (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 insul in Delio Kim MD 08/21/2020 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 (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 antic oagulants Delio Kim MD 08/21/2020 Z68.41 Body mass index [BMI]40.0-44.9, adult Delio Kim MD 07/24/2020 Z01.810 Encounter for preprocedural card iovascular examination Yariel Lemon MD 07/24/2020 I25.10 Atherosclerotic hear t disease of [place] coronary artery without angina pectoris Yariel Lemon MD 07/24/2020 E78.5 Hyperlipidemia, unspecified Yariel Lemon MD 07/24/2020 I11.0 Hypertensive heart disease with heart failure Yariel Lemon MD 07/24/2020 I50.32 Chronic diastolic (congestive) h eart failure Yariel Lemon MD 07/24/2020 E66.01 Morbid (severe) obesity due to e xcess calories Yariel Lemon MD 07/24/2020 R60.0 Localized edema Yariel Lemon MD 07/24/2020 Z79.02 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 operator truck driver (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 antit hrombotics/antiplatelets Yariel Lemon MD 07/24/2020 Z82.49 Family history of is chemic heart disease and other diseases of the circulatory system aYriel Lemon MD 07/24/2020 Z68.41 Body mass index [...] obstructive pulmonary di sease, unspecified Danni Garcia, CLIFF 07/21/2020 I73.9 Peripheral vascular disease, uns pecified Danni Garcia, CLIFF 07/21/2020 Z68.41 Body mass index (BMI) 40.0-44.9, adult Danni Garcia, CLIFF 06/12/2020 I25.10 Atherosclerotic hear t disease of [place] coronary artery without angina pectoris Ren Weaver [...] without complications Ren Weaver MD 06/12/2020 Z79.4 long-term (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 insul in Ren Weaver MD 06/12/2020 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 (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 antic oagulants Ren Weaver [...] and other diseases of the circulatory system Rahda Cochran NP 05/01/2020 Z01.810 Encounter for preprocedural card iovascular examination Testing 05/01/2020 Z01.810 Encounter for preprocedural card iovascular examination Yariel Lemon MD 05/01/2020 R94.39 Abnormal result of other cardiov ascular function study Testing 05/01/2020 E78.5 Hyperlipidemia, unspecified Yariel Lemon MD 05/01/2020 R06.02 Shortness of breath Testing 05/01/2020 I25.119 Atherosclerotic hear t disease of [place] coronary artery with unspecified angina pectoris Yariel [...] of nicotine dep endence Yariel Lemon MD 03/22/2020 E66.01 Morbid (severe) obesity due to e xcess calories Danni Garcia, LCIFF 03/22/2020 I89.0 Lymphedema, not elsewhere classi fied Danni Garcia, CLIFF 03/22/2020 E78.5 Hyperlipidemia, unspecified Daron Garcia, CLIFF 03/22/2020 K21.9 Gastro-esophageal reflux disease without esophagitis Danni Garcia, CLIFF 03/22/2020 I10 Essential (primary) hypertension Danni Garcia, CLIFF 03/22/2020 E11.9 Type 2 diabetes mellitus without complications Danni Garcia NP Plan of Treatment Future Appointment(s):* 10/09/2020 10:30 am - Danni Garcia NP at [facility] Surgical Services * 01/22/2021 1:30 pm - Yariel Lemon MD at [facility] Cardiology AT [place] 08/21/2020 - Delio Kim MD* E66.01 Morbid (severe) obesity due to excess calories* New Labs:* CBC W/Auto Differential, Ordered: 08/21/20 * CMP-Female, Ordered: 08/21/20 * Comments:* Ayaka has a long-standing history of morbid obesity.She has completed her bariatric program.She has had nutritional counseling.She has been seen and cleared by her psychologist.She has been seen and cleared by her motor and generator brush cutter for surgery.She will see her primary care [...] Ordered: 08/21/20 * CMP-Female, Ordered: 08/21/20 * Z79.4 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 operator truck driver (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 insulin * 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 (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 anticoagulants * Z68.41 Body mass index [BMI]40.0-44.9, adult Functional Status Description No Information Available Mental Status Description No Information Available Referrals Description No Information Available
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
--- OUTSIDE RECORDS SUMMARY | 2020-11-26 16:59 | CCD ---
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 Name Role Phone Yegiazarov, Y Georgiy Unavailable Unavailable Yegiazarov, Y Georgiy Unavailable Unavailable Yegiazarov, Y Georgiy Unavailable Unavailable Yegiazarov, Y Georgiy Unavailable Unavailable Yegiazarov, Y Georgiy Unavailable Unavailable Yegiazarov, Y Georgiy Unavailable Unavailable Yegiazarov, Y Georgiy Unavailable Unavailable Yegiazarov, Y Georgiy Unavailable Unavailable Yegiazarov, Y Georgiy Unavailable Unavailable Yegiazarov, Y Georgiy Unavailable Unavailable Yegiazarov, Y Georgiy Unavailable Unavailable Yegiazarov, Y Georgiy Unavailable Unavailable Yegiazarov, Y Georgiy Unavailable Unavailable Yegiazarov, Y Georgiy Unavailable Unavailable Yegiazarov, Y Georgiy Unavailable Unavailable Yegiazarov, Y Georgiy Unavailable Unavailable Yegiazarov, Y Georgiy Unavailable Unavailable Yegiazarov, Y Georgiy Unavailable Unavailable Yegiazarov, Y Georgiy Unavailable Unavailable Yegiazarov, Y Georgiy Unavailable Unavailable JAYLINMARCO Morales Unavailable Unavailable NC, EHUGHES Unavailable Unavailable Sabino Olivera MD Unavailable Unavailable Sabino Olivera MD Unavailable Unavailable Sabino Olivera MD Unavailable Unavailable Sabino Olivera MD Unavailable Unavailable Sabino Olivera MD Unavailable Unavailable Sabino Olivera MD Unavailable Unavailable Sabino Olivera MD Unavailable Unavailable Sabino Olivera MD Unavailable Unavailable Sabino Olivera MD Unavailable Unavailable Sabino Olivera MD Unavailable Unavailable Sabino Olivera MD Unavailable Unavailable Sabino Olivera MD Unavailable Unavailable Sabino Olivera MD Unavailable Unavailable Sabino Olivera MD Unavailable Unavailable Sabino Olivera MD Unavailable Unavailable Sabino Olivera MD Unavailable Unavailable Sabino Olivera MD Unavailable Unavailable Sabino Olivera MD Unavailable Unavailable Sabino Olivera MD Unavailable Unavailable Sabino Olivera MD Unavailable Unavailable Sabino Olivera MD Unavailable Unavailable Sabino Olivera MD Unavailable Unavailable Sabino Olivera MD Unavailable Unavailable Sabino Olivera MD Unavailable Unavailable Sabino Olivera MD Unavailable Unavailable Sabino Olivera MD Unavailable Unavailable Sabino Olivera MD Unavailable Unavailable Sabino Olivera MD Unavailable Unavailable Sabino Oilvera MD Unavailable Unavailable Sabino Olivera MD Unavailable Unavailable Sabino Olivera MD Unavailable Unavailable Sabino Olivera MD Unavailable Unavailable De EdisSabino MD Unavailable Unavailable De EdisSabino MD Unavailable Unavailable De EdisSabino MD Unavailable Unavailable De EdisSabino MD Unavailable Unavailable De EdisSabino MD Unavailable Unavailable De EdisSabino MD Unavailable Unavailable De EdisSabino MD Unavailable Unavailable De EdisSabino MD Unavailable Unavailable De EdisSabino MD Unavailable Unavailable De EdisSabino MD Unavailable Unavailable De EdisSabino MD Unavailable Unavailable De EdisSabino MD Unavailable Unavailable De EdisSabino MD Unavailable Unavailable De EdisSabino MD Unavailable Unavailable De Edis, Sabino Kebede MD Unavailable Unavailable De Edis, Sabino Kebede MD Unavailable Unavailable De EdisSabino MD Unavailable Unavailable De EdisSabino MD Unavailable Unavailable De EdisSabino MD Unavailable Unavailable De EdisSabino MD Unavailable Unavailable De EdisSabino MD Unavailable Unavailable De EdisSabino MD Unavailable Unavailable De EdisSabino MD Unavailable Unavailable De EdisSabino MD Unavailable Unavailable De EdisSabino MD Unavailable Unavailable De EdisSabino MD Unavailable Unavailable De EdisSabino MD Unavailable Unavailable De EdisSabino MD Unavailable Unavailable De EdisSabino MD Unavailable Unavailable De EdisSabino MD Unavailable Unavailable De EdisSabino MD Unavailable Unavailable De EdisSabino MD Unavailable Unavailable De EdisSabino MD Unavailable Unavailable De EdisSabino MD Unavailable Unavailable De EdisSabino MD Unavailable Unavailable De EdisSabino MD Unavailable Unavailable De Sabino Randhawa MD Unavailable Unavailable De EdisSabino MD Unavailable Unavailable De EdisSabino MD Unavailable Unavailable De EdisSabino MD Unavailable Unavailable De Sabino Randhawa MD Unavailable Unavailable De Sabino Randhawa MD Unavailable Unavailable De EdisSabino MD Unavailable Unavailable De EdisSabino MD Unavailable Unavailable De EdisSabino MD Unavailable Unavailable De EdisSabino beach Delio MD Unavailable Unavailable Sabino Olivera MD Unavailable Unavailable Sabino Olivera MD Unavailable Unavailable Mollison, Rell Brown MD Unavailable Unavailable Mollison, Rell Brown MD Unavailable Unavailable Mollison, Rell Brown MD Unavailable Unavailable Mollison, Rell Brown MD Unavailable Unavailable Mollison, Rell Brown MD Unavailable Unavailable Mollison, Rell Brown MD Unavailable Unavailable Mollison, Rell Brown MD Unavailable Unavailable Mollison, Rell Brown MD Unavailable Unavailable Mollison, Rell Brown MD Unavailable Unavailable Mollison, Rell Brown MD Unavailable Unavailable Mollison, Rell Brown MD Unavailable Unavailable Mollison, Rell Brown MD Unavailable Unavailable Mollison, Rell Brown MD Unavailable Unavailable Mollison, Rell Brown MD Unavailable Unavailable Mollison, Rell Brown MD Unavailable Unavailable Mollison, Rell Brown MD Unavailable Unavailable Mollison, Rell Brown MD Unavailable Unavailable Mollison, Rell Brown MD Unavailable Unavailable Mollison, Rell Brown MD Unavailable Unavailable Mollison, Rell Brown MD Unavailable Unavailable Mollison, Rell Brown MD Unavailable Unavailable Walker, H Danni LIBRARY ASSOCIATE Unavailable Unavailable Walker, H Danni LIBRARY ASSOCIATE Unavailable Unavailable Walker, H Danni LIBRARY ASSOCIATE Unavailable Unavailable Walker, H Danni LIBRARY ASSOCIATE Unavailable Unavailable Walker, H Danni LIBRARY ASSOCIATE Unavailable Unavailable Walker, H Danni LIBRARY ASSOCIATE Unavailable Unavailable Walker, H Danni LIBRARY ASSOCIATE Unavailable Unavailable Walker, H Danni LIBRARY ASSOCIATE Unavailable Unavailable Walker, H Danni LIBRARY ASSOCIATE Unavailable Unavailable Walker, H Danni LIBRARY ASSOCIATE Unavailable Unavailable Walker, H Danni LIBRARY ASSOCIATE Unavailable Unavailable Walker, H Danni LIBRARY ASSOCIATE Unavailable Unavailable Walker, H Danni LIBRARY ASSOCIATE Unavailable Unavailable Walker, H Danni LIBRARY ASSOCIATE Unavailable Unavailable Walker, H Danni LIBRARY ASSOCIATE Unavailable Unavailable Walker, H Danni LIBRARY ASSOCIATE Unavailable Unavailable Walker, H Danni LIBRARY ASSOCIATE Unavailable Unavailable Walker, H Danni LIBRARY ASSOCIATE Unavailable Unavailable Walker, H Danni LIBRARY ASSOCIATE Unavailable Unavailable Walker, H Danni LIBRARY ASSOCIATE Unavailable Unavailable Walker, H Danni LIBRARY ASSOCIATE Unavailable Unavailable Walker, H Danni LIBRARY ASSOCIATE Unavailable Unavailable Walker, H Danni LIBRARY ASSOCIATE Unavailable Unavailable Walker, H Danni LIBRARY ASSOCIATE Unavailable Unavailable Walker, H Danni LIBRARY ASSOCIATE Unavailable Unavailable Walker, H Danni LIBRARY ASSOCIATE Unavailable Unavailable Walker, H Danni LIBRARY ASSOCIATE Unavailable Unavailable Walker, H Danni LIBRARY ASSOCIATE Unavailable Unavailable Walker, H Danni LIBRARY ASSOCIATE Unavailable Unavailable Walker, H Danni LIBRARY ASSOCIATE Unavailable Unavailable Walker, H Danni LIBRARY ASSOCIATE Unavailable Unavailable Walker, H Danni LIBRARY ASSOCIATE Unavailable Unavailable Walker, H Danni LIBRARY ASSOCIATE Unavailable Unavailable Walker, H Danni LIBRARY ASSOCIATE Unavailable Unavailable Walker, H Danni LIBRARY ASSOCIATE Unavailable Unavailable Walker, H Danni LIBRARY ASSOCIATE Unavailable Unavailable Walker, H Danni LIBRARY ASSOCIATE Unavailable Unavailable Walker, H Danni LIBRARY ASSOCIATE Unavailable Unavailable Walker, H Danni LIBRARY ASSOCIATE Unavailable Unavailable Walker, H Danni LIBRARY ASSOCIATE Unavailable Unavailable Walker, H Danni LIBRARY ASSOCIATE Unavailable Unavailable Walker, H Danni LIBRARY ASSOCIATE Unavailable Unavailable Walker, H Danni LIBRARY ASSOCIATE Unavailable Unavailable Walker, H Danni LIBRARY ASSOCIATE Unavailable Unavailable Walker, H Danni LIBRARY ASSOCIATE Unavailable Unavailable Walker, H Danni LIBRARY ASSOCIATE Unavailable Unavailable Walker, H Danni LIBRARY ASSOCIATE Unavailable Unavailable Walker, H Danni LIBRARY ASSOCIATE Unavailable Unavailable Walker, H Danni LIBRARY ASSOCIATE Unavailable Unavailable Walker, H Danni LIBRARY ASSOCIATE Unavailable Unavailable Basilio Gonzalez MD Unavailable Unavailable HeitBasilio galeana MD Unavailable Unavailable HeitnerBasilio MD Unavailable Unavailable HeitBasilio galeana MD Unavailable Unavailable Heitner, Basilio Cooley MD Unavailable Unavailable Heitner, Basilio Cooley MD Unavailable Unavailable Heitner, Basilio Cooley MD Unavailable Unavailable Hedipika, Basilio Cooley MD Unavailable Unavailable HeBasilio bar MD Unavailable Unavailable HeBasilio bar MD Unavailable Unavailable HeBasilio bar MD Unavailable Unavailable HeBasilio bar MD Unavailable Unavailable HeitBasilio galeana MD Unavailable Unavailable HeBasilio bar MD Unavailable Unavailable HeBasilio bar MD Unavailable Unavailable HeBasilio bar MD Unavailable Unavailable HeBasilio bar MD Unavailable Unavailable HeBasilio bar MD Unavailable Unavailable HeBasilio bar MD Unavailable Unavailable HeBasilio bar MD Unavailable Unavailable Basilio Gonzalez MD Unavailable Unavailable Basilio Gonzalez MD Unavailable Unavailable HeBasilio bar MD Unavailable Unavailable HeBasilio bar MD Unavailable Unavailable Basilio Gonzalez MD Unavailable Unavailable XexemekGris gomez MD Unavailable Unavailable XexemekuGris MD Unavailable Unavailable XexemekGris gomez MD Unavailable Unavailable XexemekGris gomez MD Unavailable Unavailable XexemekGris gomez MD Unavailable Unavailable XexemekGris gomez MD Unavailable Unavailable XexemekGris gomez MD Unavailable Unavailable XexemekGris gomez MD Unavailable Unavailable XexemekGris gomez MD Unavailable Unavailable XexemekGris gomez MD Unavailable Unavailable XexemekGris gomez MD Unavailable Unavailable XexemekGris gomez MD Unavailable Unavailable XexemekGris gomez MD Unavailable Unavailable Xexemeku, K Yariel SIGALA Unavailable Unavailable Xexemeku, K Yariel SIGALA Unavailable Unavailable Xexemeku, K Yariel SIGALA Unavailable Unavailable Xexemeku, K Yariel SIGALA Unavailable Unavailable Xexemeku, K Yariel SIGALA Unavailable Unavailable Xexemeku, K Yariel SIGALA Unavailable Unavailable Xexemeku, K Yariel SIGALA Unavailable Unavailable Xexemeku, K Yariel SIGALA Unavailable Unavailable Xexemeku, K Yariel SIGALA Unavailable Unavailable Xexemeku, K Yariel SIGALA Unavailable Unavailable Xexemeku, K Yariel SIGALA Unavailable Unavailable Xexemeku, K Yariel SIGALA Unavailable Unavailable Xexemeku, K Yariel SIGALA Unavailable Unavailable Xexemeku, K Yariel SIGALA Unavailable Unavailable Xexemeku, K Yariel SIGALA Unavailable Unavailable Xexemeku, K Yariel SIGALA Unavailable Unavailable Xexemeku, K Yariel SIGALA Unavailable Unavailable Xexemeku, K Yariel SIGALA Unavailable Unavailable Xexemeku, K Yariel SIGALA Unavailable Unavailable Xexemeku, K Yariel SIGALA Unavailable Unavailable Xexemeku, K Yariel SIGALA Unavailable Unavailable Xexemeku, K Yariel SIGALA Unavailable Unavailable Xexemeku, K Yariel SIGALA Unavailable Unavailable Xexemeku, K Yariel SIGALA Unavailable Unavailable Xexemeku, K Yariel SIGALA Unavailable Unavailable Xexemeku, K Yariel SIGALA Unavailable Unavailable Xexemeku, K Yariel SIGALA Unavailable Unavailable Xexemeku, K Yariel SIGALA Unavailable Unavailable Xexemeku, K Yariel SIGALA Unavailable Unavailable Xexemeku, K Yariel SIGALA Unavailable Unavailable Xexemeku, K Yariel SIGALA Unavailable Unavailable Xexemeku, K Yariel SIGALA Unavailable Unavailable Xexemeku, K Yariel SIGALA Unavailable Unavailable Xexemeku, K Yariel SIGALA Unavailable Unavailable Xexemeku, K Yariel SIGALA Unavailable Unavailable Xexemeku, K Yariel SIGALA Unavailable Unavailable Xexemeku, K Yariel SIGALA Unavailable Unavailable Xexemeku, K Yariel SIGALA Unavailable Unavailable Xexemeku, K Yariel SIGALA Unavailable Unavailable Sabino Olivera MD Unavailable Unavailable Sabino Olivera MD Unavailable Unavailable Sabino Olivera MD Unavailable Unavailable Sabino Olivera MD Unavailable Unavailable De EdisSabino beach MD Unavailable Unavailable De EdisSabino beach MD Unavailable Unavailable De EdisSabino MD Unavailable Unavailable De EdisSabino MD Unavailable Unavailable De EdisSabino MD Unavailable Unavailable De Sabino Randhawa MD Unavailable Unavailable De EdisSabino beach MD Unavailable Unavailable De EdisSabino MD Unavailable Unavailable De EdisSabino MD Unavailable Unavailable De EdisSabino MD Unavailable Unavailable De EdisSabino MD Unavailable Unavailable De EdisSabino MD Unavailable Unavailable De EdisSabino MD Unavailable Unavailable De EdisSabino MD Unavailable Unavailable De EdisSabino MD Unavailable Unavailable De EdisSabino MD Unavailable Unavailable De Sabino Randhawa MD Unavailable Unavailable De EdisSabino MD Unavailable Unavailable De Sabino Randhawa MD Unavailable Unavailable De EdisSabino MD Unavailable Unavailable De EdisSabino MD Unavailable Unavailable De Sabino Randhawa MD Unavailable Unavailable De Sabino Randhawa MD Unavailable Unavailable De Sabino Randhawa MD Unavailable Unavailable De Sabino Randhawa MD Unavailable Unavailable De EdisSabino MD Unavailable Unavailable De EdisSabino MD Unavailable Unavailable De Sabino Randhawa MD Unavailable Unavailable De Sabino Rnadhawa MD Unavailable Unavailable De Sabino Randhawa MD Unavailable Unavailable De Sabino Randhawa MD Unavailable Unavailable De EdisSabino beach MD Unavailable Unavailable De EdisSabino MD Unavailable Unavailable De Sabino Randhawa MD Unavailable Unavailable De Sabino Randhawa MD Unavailable Unavailable De Sabino Randhawa MD Unavailable Unavailable De EdisSabino beach MD Unavailable Unavailable De Sabino Randhawa MD Unavailable Unavailable De Sabino Randhawa MD Unavailable Unavailable Sabino Olivera MD Unavailable Unavailable De Sabino Randhawa MD Unavailable Unavailable De Sabino Randhawa MD Unavailable Unavailable De EdisSabino MD Unavailable Unavailable De EdisSabino beach MD Unavailable Unavailable De Edis, Sabino Delio MD Unavailable Unavailable De Sabino Randhawa MD Unavailable Unavailable De Sabino Randhawa MD Unavailable Unavailable De Sabino Randhawa MD Unavailable Unavailable De Sabino Randhawa MD Unavailable Unavailable De Sabino Randhawa MD Unavailable Unavailable Sabino Olivera MD Unavailable Unavailable De Sabino Randhawa MD Unavailable Unavailable De Sabino Randhawa MD Unavailable Unavailable De EdisSabino beach MD Unavailable Unavailable De Sabino Randhawa MD Unavailable Unavailable De EdisSabino beach MD Unavailable Unavailable De Sabino Randhawa MD Unavailable Unavailable De Edis, Sabino Kebede MD Unavailable Unavailable De Edis, Sabino Kebede MD Unavailable Unavailable De Edis, Sabino Kebede MD Unavailable Unavailable De Edis, Sabino Kebede MD Unavailable Unavailable De Sabino Randhawa MD Unavailable Unavailable Sabino Olivera MD Unavailable Unavailable De Sabino Randhawa MD Unavailable Unavailable De Sabino Randhawa MD Unavailable Unavailable Sabino Olivera MD Unavailable Unavailable De Sabino Randhawa MD Unavailable Unavailable Sabino Olivera MD Unavailable Unavailable Sabino Olivera MD Unavailable Unavailable Sabino Olivera MD Unavailable Unavailable De Sabino Randhawa MD Unavailable Unavailable De Sabino Randhawa MD Unavailable Unavailable Sabino Olivera MD Unavailable Unavailable Sabino Olivera MD Unavailable Unavailable Sabino Olivera MD Unavailable Unavailable De Sabino Randhwaa MD Unavailable Unavailable VETO PIEDRA Unavailable Unavailable Bahamonde, E Radha LIBRARY ASSOCIATE Unavailable Unavailable Bahamonde, E Radha LIBRARY ASSOCIATE Unavailable Unavailable Bahamonde, E Radha LIBRARY ASSOCIATE Unavailable Unavailable Bahamonde, E Radha LIBRARY ASSOCIATE Unavailable Unavailable Bahamonde, E Radha LIBRARY ASSOCIATE Unavailable Unavailable Bahamonde, E Radha LIBRARY ASSOCIATE Unavailable Unavailable Bahamonde, E Radha LIBRARY ASSOCIATE Unavailable Unavailable Bahamonde, E Radha LIBRARY ASSOCIATE Unavailable Unavailable Bahamonde, E Radha LIBRARY ASSOCIATE Unavailable Unavailable Bahamonde, E Radha LIBRARY ASSOCIATE Unavailable Unavailable Bahamonde, E Radha LIBRARY ASSOCIATE Unavailable Unavailable Bahamonde, E Radha LIBRARY ASSOCIATE Unavailable Unavailable Bahamonde, E Radha LIBRARY ASSOCIATE Unavailable Unavailable Bahamonde, E Radha LIBRARY ASSOCIATE Unavailable Unavailable Bahamonde, E Radha LIBRARY ASSOCIATE Unavailable Unavailable Bahamonde, E Radha LIBRARY ASSOCIATE Unavailable Unavailable Bahamonde, E Radha LIBRARY ASSOCIATE Unavailable Unavailable Bahamonde, E Radha LIBRARY ASSOCIATE Unavailable Unavailable Bahamonde, E Radha LIBRARY ASSOCIATE Unavailable Unavailable Bahamonde, E Radha LIBRARY ASSOCIATE Unavailable Unavailable Bahamonde, E Radha LIBRARY ASSOCIATE Unavailable Unavailable Owen, Isidro Mcclure MD Unavailable Unavailable Owen, Isidro Mcclure MD Unavailable Unavailable Owen, Isidro Mcclure MD Unavailable Unavailable Owen, Isidro Mcclure MD Unavailable Unavailable Owen, Isidro Mcclure MD Unavailable Unavailable Owen, Isidro Mcclure MD Unavailable Unavailable Owen, Isidro Mcclure MD Unavailable Unavailable Owen, Isidro Mcclure MD Unavailable Unavailable Owen, Isidro Mcclure MD Unavailable Unavailable Owen, Isidro Mcclure MD Unavailable Unavailable Owen, Isidro Mcclure MD Unavailable Unavailable Owen, Isidro Mcclure MD Unavailable Unavailable Owen, Isidro Mcclure MD Unavailable Unavailable Owen, Isidro Mcclure MD Unavailable Unavailable Owen, Isidro Mcclure MD Unavailable Unavailable Owen, Isidro Mcclure MD Unavailable Unavailable Owen, Isidro Mcclure MD Unavailable Unavailable Owen, Isidro Mcclure MD Unavailable Unavailable Owen, Isidro Mcclure MD Unavailable Unavailable Owen, Isidro Mcclure MD Unavailable Unavailable Owen, Isidro Mcclure MD Unavailable Unavailable Owen, Isidro Mcclure MD Unavailable Unavailable Owen, Isidro Mcclure MD Unavailable Unavailable Owen, Isidro Mcclure MD Unavailable Unavailable Owen, Isidro Mcclure MD Unavailable Unavailable Owen, Isidro Mcclure MD Unavailable Unavailable Owen, Isidro Mcclure MD Unavailable Unavailable Owen, Isidro Mcclure MD Unavailable Unavailable Owen, Isidro Mcclure MD Unavailable Unavailable Owen, Isidro Mcclure MD Unavailable Unavailable Owen, Isidro Mcclure MD Unavailable Unavailable Owen, Isidro Mcclure MD Unavailable Unavailable Owen, Isidro Mcclure MD Unavailable Unavailable Owen, Isidro Mcclure MD Unavailable Unavailable Owen, Isidro Mcclure MD Unavailable Unavailable Owen, Isidro Mcclure MD Unavailable Unavailable Owen, Isidro Mcclure MD Unavailable Unavailable Owen, Isidro Mcclure MD Unavailable Unavailable Owen, Isidro Mcclure MD Unavailable Unavailable Owen, Isidro Mcclure MD Unavailable Unavailable Owen, Isidro Mcclure MD Unavailable Unavailable Owen, Isidro Mcclure MD Unavailable Unavailable Owen, Isidro Mcclure MD Unavailable Unavailable Owen, Isidro Mcclure MD Unavailable Unavailable Owen, Isidro Mcclure MD Unavailable Unavailable Owen, Isidro Mcclure MD Unavailable Unavailable Owen, Isidro Mcclure MD Unavailable Unavailable Owen, Isidro Mcclure MD Unavailable Unavailable Owen, Isidro Mcclure MD Unavailable Unavailable Owen, Isidro Mcclure MD Unavailable Unavailable Owen, Isidro Mcclure MD Unavailable Unavailable Owen, Isidro Mcclure MD Unavailable Unavailable Owen, Isidro Mcclure MD Unavailable Unavailable Owen, Isidro Mcclure MD Unavailable Unavailable Owen, Isidro Mcclure MD Unavailable Unavailable Owen, Isidro Mcclure MD Unavailable Unavailable Owen, Isidro Mcclure MD Unavailable Unavailable Owen, Isidro Mcclure MD Unavailable Unavailable Owen, Isidro Mcclure MD Unavailable Unavailable Owen, Isidro Mcclure MD Unavailable Unavailable Owen, Isidro Mcclure MD Unavailable Unavailable Owen, Isidro Mcclure MD Unavailable Unavailable Owen, Isidro Mcclure MD Unavailable Unavailable Owen, Isidro Mcclure MD Unavailable Unavailable Owen, Isidro Mcclure MD Unavailable Unavailable Owen, Isidro Mcclure MD Unavailable Unavailable Owen, Isidro Mcclure MD Unavailable Unavailable Owen, Isidro Mcclure MD Unavailable Unavailable Owen, Isidro Mcclure MD Unavailable Unavailable Owen, Isidro Mcclure MD Unavailable Unavailable Owen, Isidro Mcclure MD Unavailable Unavailable Owen, Isidro Mcclure MD Unavailable Unavailable Owen, Isidro Mcclure MD Unavailable Unavailable Owen, Isidro Mcclure MD Unavailable Unavailable Owen, Isidro Mcclure MD Unavailable Unavailable Owen, Isidro Mcclure MD Unavailable Unavailable Owen, Isidro Mcclure MD Unavailable Unavailable Owen, Isidro Mcclure MD Unavailable Unavailable Owen, Isidro Mcclure MD Unavailable Unavailable Owen, Isidro Mcclure MD Unavailable Unavailable Owen, Isidro Mcclure MD Unavailable Unavailable Owen, Isidro Mcclure MD Unavailable Unavailable Owen, Isidro Mcclure MD Unavailable Unavailable Owen, Isidro Mcclure MD Unavailable Unavailable Owen, Isidro Mcclure MD Unavailable Unavailable Owen, Isidro Mcclure MD Unavailable Unavailable Owen, Isidro Mcclure MD Unavailable Unavailable Owen, Isidro Mcclure MD Unavailable Unavailable Owen, Isidro Mcclure MD Unavailable Unavailable Owen, Isidro Mcclure MD Unavailable Unavailable Owen, Isidro Mcclure MD Unavailable Unavailable Owen, Isidro Mcclure MD Unavailable Unavailable Owen, Isidro Mcclure MD Unavailable Unavailable Owen, Isidro Mcclure MD Unavailable Unavailable Owen, Isidro Mcclure MD Unavailable Unavailable Owen, Isidro Mcclure MD Unavailable Unavailable Owen, Isidro Mcclure MD Unavailable Unavailable NELLY, M CAS DO Unavailable Unavailable NELLY, M CAS DO Unavailable Unavailable NELLY, M CAS DO Unavailable Unavailable NELLY, M CAS DO Unavailable Unavailable NELLY, M CAS DO Unavailable Unavailable NELLY, M CAS DO Unavailable Unavailable NELLY, M CAS DO Unavailable Unavailable NELLY, M CAS DO Unavailable Unavailable NELLY, M CAS DO Unavailable Unavailable NELLY, M CAS DO Unavailable Unavailable NELLY, M CAS DO Unavailable Unavailable NELLY, M CAS DO Unavailable Unavailable NELLY, M CAS DO Unavailable Unavailable NELLY, M CAS DO Unavailable Unavailable NELLY, M CAS DO Unavailable Unavailable NELLY, M CAS DO Unavailable Unavailable NELLY, M CAS DO Unavailable Unavailable NELLY, M CAS DO Unavailable Unavailable NELLY, M CAS DO Unavailable Unavailable NELLY, M CAS DO Unavailable Unavailable NELLY, M CAS DO Unavailable Unavailable NELLY, M CAS DO Unavailable Unavailable NELLY, M CAS DO Unavailable Unavailable NELLY, M CAS DO Unavailable Unavailable NELLY, M CAS DO Unavailable Unavailable NELLY, M CAS DO Unavailable Unavailable NELLY, M CAS DO Unavailable Unavailable NELLY, M CAS DO Unavailable Unavailable NELLY, M CAS DO Unavailable Unavailable NELLY, M CAS DO Unavailable Unavailable NELLY, M CAS DO Unavailable Unavailable NELLY, M CAS DO Unavailable Unavailable NELLY, M CAS DO Unavailable Unavailable NELLY, M CAS DO Unavailable Unavailable NELLY, M CAS DO Unavailable Unavailable NELLY, M CAS DO Unavailable Unavailable NELLY, M CAS DO Unavailable Unavailable NELLY, M CAS DO Unavailable Unavailable NELLY, M CAS DO Unavailable Unavailable NELLY, M CAS DO Unavailable Unavailable NELLY, M CAS DO Unavailable Unavailable NELLY, M CAS DO Unavailable Unavailable NELLY, M CAS DO Unavailable Unavailable NELLY, M CAS DO Unavailable Unavailable NELLY, M CAS DO Unavailable Unavailable NELLY, M CAS DO Unavailable Unavailable NELLY, M CAS DO Unavailable Unavailable NELLY, M CAS DO Unavailable Unavailable NELLY, M CAS DO Unavailable Unavailable NELLY, M CAS DO Unavailable Unavailable NELLY, M CAS DO Unavailable Unavailable NELLY, M CAS DO Unavailable Unavailable NELLY, M CAS DO Unavailable Unavailable NELLY, M CAS DO Unavailable Unavailable NELLY, M CAS DO Unavailable Unavailable NELLY, M CAS DO Unavailable Unavailable NELLY, M CAS DO Unavailable Unavailable NELLY, M CAS DO Unavailable Unavailable NELLY, M CAS DO Unavailable Unavailable NELLY, M CAS DO Unavailable Unavailable NELLY, M CAS DO Unavailable Unavailable NELLY, M CAS DO Unavailable Unavailable NELLY, M CAS DO Unavailable Unavailable NELLY, M CAS DO Unavailable Unavailable NELLY, M CAS DO Unavailable Unavailable NELLY, M CAS DO Unavailable Unavailable NELLY, M CAS DO Unavailable Unavailable NELLY, M CAS DO Unavailable Unavailable Agustin Boogie MD Unavailable Unavailable Agustin Boogie MD Unavailable Unavailable Agustin Boogie MD Unavailable Unavailable Agustin Boogie MD Unavailable Unavailable Agustin Boogie MD Unavailable Unavailable Agustin Boogie MD Unavailable Unavailable Agustin Boogie MD Unavailable Unavailable Agustin Boogie MD Unavailable Unavailable Agustin Boogie MD Unavailable Unavailable Agustin Boogie MD Unavailable Unavailable Agustin Boogie MD Unavailable Unavailable Agustin Boogie MD Unavailable Unavailable Agustin Boogie MD Unavailable Unavailable Agustin Boogie MD Unavailable Unavailable Agustin Boogie MD Unavailable Unavailable Agustin Boogie MD Unavailable Unavailable Agustin Boogie MD Unavailable Unavailable Agustin Boogie MD Unavailable Unavailable Agustin Boogie MD Unavailable Unavailable Agustin Boogie MD Unavailable Unavailable Agustin Boogie MD Unavailable Unavailable Agustin Boogie MD Unavailable Unavailable Agustin Boogie MD Unavailable Unavailable Agustin Boogie MD Unavailable Unavailable Agustin Boogie MD Unavailable Unavailable Agustin Boogie MD Unavailable Unavailable Agustin Boogie MD Unavailable Unavailable Agustin Boogie MD Unavailable Unavailable Agustin Boogie MD Unavailable Unavailable Agustin Boogie MD Unavailable Unavailable Agustin Boogie MD Unavailable Unavailable Agustin Boogie MD Unavailable Unavailable Agustin Boogie MD Unavailable Unavailable Agustin Boogie MD Unavailable Unavailable Agustin Boogie MD Unavailable Unavailable Agustin Boogie MD Unavailable Unavailable Agustin Boogie MD Unavailable Unavailable Agustin Boogie MD Unavailable Unavailable Agustin Boogie MD Unavailable Unavailable Agustin Boogie MD Unavailable Unavailable Agustin Boogie MD Unavailable Unavailable Agustin Boogie MD Unavailable Unavailable Agustin Boogie MD Unavailable Unavailable Agustin Boogie MD Unavailable Unavailable Agustin Boogie MD Unavailable Unavailable Agustin Boogie MD Unavailable Unavailable Agustin Boogie MD Unavailable Unavailable Agustin Boogie MD Unavailable Unavailable Agustin Boogie MD Unavailable Unavailable Agustin Boogie MD Unavailable Unavailable Agustin Boogie MD Unavailable Unavailable Agustin Boogie MD Unavailable Unavailable Agustin Boogie MD Unavailable Unavailable Agustin Boogie MD Unavailable Unavailable Agustin Boogie MD Unavailable Unavailable Agustin Boogie MD Unavailable Unavailable Agustin Boogie MD Unavailable Unavailable Agustin Boogie MD Unavailable Unavailable Agustin Boogie MD Unavailable Unavailable Agustin Boogie MD Unavailable Unavailable Agustin Boogie MD Unavailable Unavailable Agustin Boogie MD Unavailable Unavailable Agustin Boogie MD Unavailable Unavailable Agustin Boogie MD Unavailable Unavailable Agustin Boogie MD Unavailable Unavailable Agustin Boogie MD Unavailable Unavailable Agustin Boogie MD Unavailable Unavailable Agustin Boogie MD Unavailable Unavailable Agustin Boogie MD Unavailable Unavailable Agustin Boogie MD Unavailable Unavailable Agustin Boogie MD Unavailable Unavailable Agustin Boogie MD Unavailable Unavailable Sae, Nahomi Buckley MD Unavailable Unavailable SaeNahomi MD Unavailable Unavailable SaeNahomi MD Unavailable Unavailable SaeNahomi MD Unavailable Unavailable SaeNahomi MD Unavailable Unavailable Sae, Nahomi Buckley MD Unavailable Unavailable SaeNahomi MD Unavailable Unavailable SaeNahomi MD Unavailable Unavailable SaeNahomi MD Unavailable Unavailable SaeNahomi MD Unavailable Unavailable SaeNahomi MD Unavailable Unavailable SaeNahomi MD Unavailable Unavailable SaeNahomi MD Unavailable Unavailable SaeNahomi MD Unavailable Unavailable SaeNahomi MD Unavailable Unavailable SaeNahomi MD Unavailable Unavailable SaeNahomi MD Unavailable Unavailable SaeNahomi MD Unavailable Unavailable SaeNahomi MD Unavailable Unavailable SaeNahomi MD Unavailable Unavailable SaeNahomi MD Unavailable Unavailable SaeNahomi MD Unavailable Unavailable SaeNahomi MD Unavailable Unavailable SaeNahomi MD Unavailable Unavailable SaeNahomi MD Unavailable Unavailable SaeNahomi MD Unavailable Unavailable SaeNahomi MD Unavailable Unavailable SaeNahomi MD Unavailable Unavailable SaeNahomi MD Unavailable Unavailable SaeNahomi MD Unavailable Unavailable SaeNahomi MD Unavailable Unavailable SaeNahomi MD Unavailable Unavailable Sae, Nahomi Buckley MD Unavailable Unavailable Sae, Nahomi Buckley MD Unavailable Unavailable Sae, Nahomi Buckley MD Unavailable Unavailable Sae, Nahomi Buckley MD Unavailable Unavailable Sae, Nahomi Buckley MD Unavailable Unavailable Sae, Nahomi Buckley MD Unavailable Unavailable Sae, Nahomi Buckley MD Unavailable Unavailable Sae, Nahomi Buckley MD Unavailable Unavailable Sae, Nahomi Buckley MD Unavailable Unavailable Sae, Nahomi Buckley MD Unavailable Unavailable Sae, Nahomi Buckley MD Unavailable Unavailable Sae, Nahomi Buckley MD Unavailable Unavailable Sae, Nahomi Buckley MD Unavailable Unavailable Sae, Nahomi Buckley MD Unavailable Unavailable Sae, Nahomi Buckley MD Unavailable Unavailable Sae, aNhomi Buckley MD Unavailable Unavailable Sae, Nahomi Buckley MD Unavailable Unavailable Sae, Nahomi Buckley MD Unavailable Unavailable Sae, Nahomi Buckley MD Unavailable Unavailable Sae, Nahomi Buckley MD Unavailable Unavailable Sae, Nahomi Buckley MD Unavailable Unavailable Sae, Nahomi Buckley MD Unavailable Unavailable Sae, Nahomi Buckley MD Unavailable Unavailable Sae, Nahomi Buckley MD Unavailable Unavailable Sae, Nahomi Buckley MD Unavailable Unavailable Sae, Nahomi Buckley MD Unavailable Unavailable Sae, Nahomi Buckley MD Unavailable Unavailable Sae, Nahomi Buckley MD Unavailable Unavailable XexemekuGris MD Unavailable Unavailable Xexemeku, K Yariel SIGALA Unavailable Unavailable Xexemeku, K Yariel SIGALA Unavailable Unavailable Xexemeku, K Yariel SIGALA Unavailable Unavailable Xexemeku, K Yariel SIGALA Unavailable Unavailable Xexemeku, K Yariel SIGALA Unavailable Unavailable Xexemeku, K Yariel SIGALA Unavailable Unavailable Xexemeku, K Yariel SIGALA Unavailable Unavailable Xexemeku, K Yariel SIGALA Unavailable Unavailable Xexemeku, K Yariel SIGALA Unavailable Unavailable Xexemeku, K Yariel SIGALA Unavailable Unavailable Xexemeku, K Yariel SIGALA Unavailable Unavailable Xexemeku, K Yariel SIGALA Unavailable Unavailable Xexemeku, K Yariel SIGALA Unavailable Unavailable Xexemeku, K Yariel SIGALA Unavailable Unavailable Xexemeku, K Yariel SIGALA Unavailable Unavailable Xexemeku, K Yariel SIGALA Unavailable Unavailable Xexemeku, K Yariel SIGALA Unavailable Unavailable Xexemeku, K Yariel SIGALA Unavailable Unavailable Xexemeku, K Yariel SIGALA Unavailable Unavailable Xexemeku, K Yariel SIGALA Unavailable Unavailable Xexemeku, K Yariel SIGALA Unavailable Unavailable Xexemeku, K Yariel SIGALA Unavailable Unavailable Xexemeku, K Yariel SIGALA Unavailable Unavailable Xexemeku, K Yariel SIGALA Unavailable Unavailable Xexemeku, K Yariel SIGALA Unavailable Unavailable Xexemeku, K Yariel SIGALA Unavailable Unavailable Xexemeku, K Yariel SIGALA Unavailable Unavailable Xexemeku, K Yariel SIGALA Unavailable Unavailable Xexemeku, K Yariel SIGALA Unavailable Unavailable Xexemeku, K Yariel SIGALA Unavailable Unavailable Xexemeku, K Yariel SIGALA Unavailable Unavailable Xexemeku, K Yariel SIGALA Unavailable Unavailable Xexemeku, K Yariel SIGALA Unavailable Unavailable Xexemeku, K Yariel SIGALA Unavailable Unavailable Xexemeku, K Yariel SIGALA Unavailable Unavailable Xexemeku, K Yariel SIGALA Unavailable Unavailable Xexemeku, K Yariel SIGALA Unavailable Unavailable Xexemeku, K Yariel SIGALA Unavailable Unavailable Xexemeku, K Yariel SIGALA Unavailable Unavailable Xexemeku, K Yariel SIGALA Unavailable Unavailable Xexemeku, K Yariel SIGALA Unavailable Unavailable Xexemeku, K Yariel SIGALA Unavailable Unavailable Xexemeku, K Yariel SIGALA Unavailable Unavailable Xexemeku, K Yariel SIGALA Unavailable Unavailable Xexemeku, K Yariel SIGALA Unavailable Unavailable Xexemeku, K Yariel SIGALA Unavailable Unavailable Xexemeku, K Yariel SIGALA Unavailable Unavailable Xexemeku, K Yariel SIGALA Unavailable Unavailable Xexemeku, K Yariel SIGALA Unavailable Unavailable Xexemeku, K Yariel SIGALA Unavailable Unavailable Xexemeku, K Yariel SIGALA Unavailable Unavailable Sabino Olivera MD Unavailable Unavailable Sabino Olivera MD Unavailable Unavailable Sabino Olivera MD Unavailable Unavailable Sabino Olivera MD Unavailable Unavailable Sabino Olivera MD Unavailable Unavailable Sabino Olivera MD Unavailable Unavailable Sabino Olivera MD Unavailable Unavailable Sabino Olivera MD Unavailable Unavailable Sabino Olivera MD Unavailable Unavailable Sabino Olivera MD Unavailable Unavailable De EdisSabino beach MD Unavailable Unavailable De Sabino Randhawa MD Unavailable Unavailable De EdisSabino MD Unavailable Unavailable De EdisSabino MD Unavailable Unavailable De EdisSabino MD Unavailable Unavailable De EdisSabino beach MD Unavailable Unavailable De EdisSabino MD Unavailable Unavailable De EdisSabino MD Unavailable Unavailable De EdisSabino MD Unavailable Unavailable De EdisSabino MD Unavailable Unavailable De EdisSabino MD Unavailable Unavailable De EdisSabino MD Unavailable Unavailable De EdisSabino MD Unavailable Unavailable De EdisSabino MD Unavailable Unavailable De EdisSabino MD Unavailable Unavailable De EdisSabino MD Unavailable Unavailable De EdisSabino MD Unavailable Unavailable De EdisSabino MD Unavailable Unavailable De EdisSabino MD Unavailable Unavailable De EdisSabino MD Unavailable Unavailable De EdisSabino MD Unavailable Unavailable De EdisSabino MD Unavailable Unavailable De EdisSabino MD Unavailable Unavailable De Sabino Randhawa MD Unavailable Unavailable De EdisSabino MD Unavailable Unavailable De EdisSabino MD Unavailable Unavailable De EdisSabino MD Unavailable Unavailable De EdisSabino MD Unavailable Unavailable De Sabino Randhawa MD Unavailable Unavailable De Sabino Randhawa MD Unavailable Unavailable De EdisSabino beach MD Unavailable Unavailable De EdisSabino MD Unavailable Unavailable De EdisSabino MD Unavailable Unavailable De EdisSabino MD Unavailable Unavailable De EdisSabino beach MD Unavailable Unavailable De Sabino Randhawa MD Unavailable Unavailable De Sabino Randhawa MD Unavailable Unavailable De EdisSabino MD Unavailable Unavailable De EdisSabino MD Unavailable Unavailable De EdisSabino MD Unavailable Unavailable De Sabino Randhawa MD Unavailable Unavailable De Sabino Randhawa MD Unavailable Unavailable De EdisSabino MD Unavailable Unavailable De EdisSabino MD Unavailable Unavailable De EdisSabino MD Unavailable Unavailable Sabino Olivera MD Unavailable Unavailable Sabino Olivera MD Unavailable Unavailable Sabino Olivera MD Unavailable Unavailable Sabino Olivera MD Unavailable Unavailable Sabino Olivera MD Unavailable Unavailable Sabino Olivera MD Unavailable Unavailable Sabino Olivera MD Unavailable Unavailable Sabino Olivera MD Unavailable Unavailable Sabino Olivera MD Unavailable Unavailable Sabino Olivera MD Unavailable Unavailable Sabino Olivera MD Unavailable Unavailable Sabino Olivera MD Unavailable Unavailable Sabino Olivera MD Unavailable Unavailable Sabino Olivera MD Unavailable Unavailable Sabino Olivera MD Unavailable Unavailable Sabino Olivera MD Unavailable Unavailable Sabino Olivera MD Unavailable Unavailable Sabino Olivera MD Unavailable Unavailable Sabino Olivera MD Unavailable Unavailable Sabino Olivera MD Unavailable Unavailable Sabino Olivera MD Unavailable Unavailable Sabion Olivera MD Unavailable Unavailable Sabino Olivera MD Unavailable Unavailable Sabino Olivera MD Unavailable Unavailable Sabino Olivera MD Unavailable Unavailable Rell Youssef MD Unavailable Unavailable Rell Youssef MD Unavailable Unavailable Rell Youssef MD Unavailable Unavailable Rell Youssef MD Unavailable Unavailable Rell Youssef MD Unavailable Unavailable Rell Youssef MD Unavailable Unavailable Rell Youssef MD Unavailable Unavailable Rell Youssef MD Unavailable Unavailable Rell Youssef MD Unavailable Unavailable Rell Youssef MD Unavailable Unavailable Rell Youssef MD Unavailable Unavailable Rell Youssef MD Unavailable Unavailable Rell Youssef MD Unavailable Unavailable Rell Youssef MD Unavailable Unavailable Rell Youssef MD Unavailable Unavailable Rell Youssef MD Unavailable Unavailable Rell Youssef MD Unavailable Unavailable Rell Youssef MD Unavailable Unavailable Rell Youssef MD Unavailable Unavailable Rell Youssef MD Unavailable Unavailable Rell Youssef MD Unavailable Unavailable MAVERICK CUEVA MD Unavailable Unavailable MAVERICK CUEVA MD Unavailable Unavailable MAVERICK CUEVA MD Unavailable Unavailable MAVERICK CUEVA MD Unavailable Unavailable MAVERICK CUEVA MD Unavailable Unavailable MAVERICK CUEVA MD Unavailable Unavailable MAVERICK CUEVA MD Unavailable Unavailable HAMMADMAVERICK MD Unavailable Unavailable HAMMADMAVERICK MD Unavailable Unavailable HAMMADMAVERICK MD Unavailable Unavailable HAMMADMAVERICK MD Unavailable Unavailable HAMMADMAVERICK MD Unavailable Unavailable HAMMADMAVERICK MD Unavailable Unavailable HAMMADMAVERICK MD Unavailable Unavailable HAMMADMAVERICK MD Unavailable Unavailable HAMMADMAVERICK MD Unavailable Unavailable HAMMADMAVERICK MD Unavailable Unavailable HAMMADMAVERICK MD Unavailable Unavailable HAMMADMAVERICK MD Unavailable Unavailable HAMMADMAVERICK MD Unavailable Unavailable HAMMADMAVERICK MD Unavailable Unavailable HAMMADMAVERICK MD Unavailable Unavailable HAMMAD, MAVERICK SIGALA Unavailable Unavailable HAMMADMAVERICK MD Unavailable Unavailable HAMMAD, MAVERICK SIGALA Unavailable Unavailable HAMMADMAVERICK MD Unavailable Unavailable HAMMADMAVERICK MD Unavailable Unavailable HAMMADMAVERICK MD Unavailable Unavailable HAMMADMAVERICK MD Unavailable Unavailable HAMMADMAVERICK MD Unavailable Unavailable HAMMADMAVERICK MD Unavailable Unavailable HAMMADMAVERICK MD Unavailable Unavailable HAMMADMAVERICK MD Unavailable Unavailable HAMMADMAVERICK MD Unavailable Unavailable HAMMADMAVERICK MD Unavailable Unavailable HAMMADMAVERICK MD Unavailable Unavailable HAMMADMAVERICK MD Unavailable Unavailable HAMMADMAVERICK MD Unavailable Unavailable HAMMADMAVERICK MD Unavailable Unavailable HAMMADMAVERICK MD Unavailable Unavailable HAMMADMAVERICK MD Unavailable Unavailable HAMMADMAVERICK Singh MD Unavailable Unavailable HAMMADMAVERICK MD Unavailable Unavailable HAMMADMAVERICK Singh MD Unavailable Unavailable HAMMADMAVERICK MD Unavailable Unavailable HAMMADMAVERICK MD Unavailable Unavailable HAMMADMAVERICK MD Unavailable Unavailable HAMMADMAVERICK MD Unavailable Unavailable HAMMADMAVERICK Singh MD Unavailable Unavailable HAMMADMAVERICK Singh MD Unavailable Unavailable HAMMADMAVERICK Singh MD Unavailable Unavailable HAMMADMAVERICK Singh MD Unavailable Unavailable HAMMADMAVERICK MD Unavailable Unavailable HAMMADMAVERICK MD Unavailable Unavailable HAMMADMAVERICK MD Unavailable Unavailable HAMMADMAVERICK MD Unavailable Unavailable HAMMADMAVERICK MD Unavailable Unavailable HAMMADMAVERICK Singh MD Unavailable Unavailable HAMMADMAVERICK MD Unavailable Unavailable HAMMADMAVERICK MD Unavailable Unavailable HAMMADMAVERICK MD Unavailable Unavailable HAMMADMAVERICK MD Unavailable Unavailable HAMMADMAVERICK MD Unavailable Unavailable HAMMADMAVERICK MD Unavailable Unavailable HAMMADMAVERICK MD Unavailable Unavailable HAMMADMAVERICK Singh MD Unavailable Unavailable HAMMADMAVERICK Singh MD Unavailable Unavailable HAMMADMAVERICK MD Unavailable Unavailable HAMMADMAVERICK MD Unavailable Unavailable MD MARGAUX REYNOLDS Unavailable Unavailable Owen, Isidro Mcclure MD Unavailable Unavailable Owen, Isidro Mcclure MD Unavailable Unavailable Owen, Isidro Mcclure MD Unavailable Unavailable Owen, Isidro Mcclure MD Unavailable Unavailable Owen, Isidro Mcclure MD Unavailable Unavailable Owen, Isidro Mcclure MD Unavailable Unavailable Owen, Isidro Mcclure MD Unavailable Unavailable Owen, Isidro Mcclure MD Unavailable Unavailable Owen, Isidro Mcclure MD Unavailable Unavailable Owen, Isidro Mcclure MD Unavailable Unavailable Owen, Isidro Mcclure MD Unavailable Unavailable Owen, Isidro Mcclure MD Unavailable Unavailable Owen, Isidro Mcclure MD Unavailable Unavailable Owen, Isidro Mcclure MD Unavailable Unavailable Owen, Isidro Mcclure MD Unavailable Unavailable Owen, Isidro Mcclure MD Unavailable Unavailable Owen, Isidro Mcclure MD Unavailable Unavailable Owen, Isidro Mcclure MD Unavailable Unavailable Owen, Isidro Mcclure MD Unavailable Unavailable Owen, Isidro Mcclure MD Unavailable Unavailable Owen, Isidro Mcclure MD Unavailable Unavailable Owen, Isidro Mcclure MD Unavailable Unavailable Owen, Isidro Mcclure MD Unavailable Unavailable Owen, Isidro Mcclure MD Unavailable Unavailable Owen, Isidro Mcclure MD Unavailable Unavailable Owen, Isidro Mcclure MD Unavailable Unavailable Owen, Isidro Mcclure MD Unavailable Unavailable Owen, Isidro Mcclure MD Unavailable Unavailable Owen, Isidro Mcclure MD Unavailable Unavailable Owen, Isidro Mcclure MD Unavailable Unavailable Owen, Isidro Mcclure MD Unavailable Unavailable Owen, Isidro Mcclure MD Unavailable Unavailable Owen, Isidro Mcclure MD Unavailable Unavailable Owen, Isidro Mcclure MD Unavailable Unavailable Owen, Isidro Mcclure MD Unavailable Unavailable Owen, Isidro Mcclure MD Unavailable Unavailable Owen, Isidro Mcclure MD Unavailable Unavailable Owen, Isidro Mcclure MD Unavailable Unavailable Owen, Isidro Mcclure MD Unavailable Unavailable Owen, Isidro Mcclure MD Unavailable Unavailable Owen, Isidro Mcclure MD Unavailable Unavailable Owen, Isidro Mcclure MD Unavailable Unavailable Owen, Isidro Mcclure MD Unavailable Unavailable Owen, Isidro Mcclure MD Unavailable Unavailable Owen, Isidro Mcclure MD Unavailable Unavailable Owen, Isidro Mcclure MD Unavailable Unavailable Owen, Isidro Mcclure MD Unavailable Unavailable Owen, Isidro Mcclure MD Unavailable Unavailable Owen, Isidro Mcclure MD Unavailable Unavailable Owen, Isidro Mcclure MD Unavailable Unavailable Owen, Isidro Mcclure MD Unavailable Unavailable Owen, Isidro Mcclure MD Unavailable Unavailable Owen, Isidro Mcclure MD Unavailable Unavailable Owen, Isidro Mcclure MD Unavailable Unavailable Owen, Isidro Mcclure MD Unavailable Unavailable Owen, Isidro Mcclure MD Unavailable Unavailable Owen, Isidro Mcclure MD Unavailable Unavailable Owen, Isidro Mcclure MD Unavailable Unavailable Owen, Isidro Mcclure MD Unavailable Unavailable Owen, Isidro Mcclure MD Unavailable Unavailable Owen, Isidro Mcclure MD Unavailable Unavailable Owen, Isidro Mcclure MD Unavailable Unavailable Owen, Isidro Mcclure MD Unavailable Unavailable Owen, Isidro Mcclure MD Unavailable Unavailable Owen, Isidro Mcclure MD Unavailable Unavailable Owen, Isidro Mcclure MD Unavailable Unavailable Owen, Isidro Mcclure MD Unavailable Unavailable Owen, Isidro Mcclure MD Unavailable Unavailable Owen, Isidro Mcclure MD Unavailable Unavailable Owen, Isidro Mcclure MD Unavailable Unavailable Owen, Isidro Mcclure MD Unavailable Unavailable Owen, Isidro Mcclure MD Unavailable Unavailable Owen, Isidro Mcclure MD Unavailable Unavailable Owen, Isidro Mcclure MD Unavailable Unavailable Owen, Isidro Mcclure MD Unavailable Unavailable Owen, Isidro Mcclure MD Unavailable Unavailable Owen, Isidro Mcclure MD Unavailable Unavailable Owen, Isidro Mcclure MD Unavailable Unavailable Owen, Isidro Mcclure MD Unavailable Unavailable Owen, Isidro Mcclure MD Unavailable Unavailable Owen, Isidro Mcclure MD Unavailable Unavailable Owen, Isidro Mcclure MD Unavailable Unavailable Owen, Isidro Mcclure MD Unavailable Unavailable Owen, Isidro Mcclure MD Unavailable Unavailable Owen, Isidro Mcclure MD Unavailable Unavailable Owen, Isidro Mcclure MD Unavailable Unavailable Owen, Isidro Mcclure MD Unavailable Unavailable Owen, Isidro Mcclure MD Unavailable Unavailable Owen, Isidro Mcclure MD Unavailable Unavailable Owen, Isidro Mcclure MD Unavailable Unavailable Owen, Isidro Mcclure MD Unavailable Unavailable Owen, Isidro Mcclure MD Unavailable Unavailable Owen, Isidro Mcclure MD Unavailable Unavailable Owen, Isidro Mcclure MD Unavailable Unavailable Owen, Isidro Mcclure MD Unavailable Unavailable Owen, Isidro Mcclure MD Unavailable Unavailable Owen, Isidro Mcclure MD Unavailable Unavailable Walker, H Danni LIBRARY ASSOCIATE Unavailable Unavailable Walker, H Danni LIBRARY ASSOCIATE Unavailable Unavailable Walker, H Danni LIBRARY ASSOCIATE Unavailable Unavailable Walker, H Danni LIBRARY ASSOCIATE Unavailable Unavailable Walker, H Danni LIBRARY ASSOCIATE Unavailable Unavailable Walker, H Danni LIBRARY ASSOCIATE Unavailable Unavailable Walker, H Danni LIBRARY ASSOCIATE Unavailable Unavailable Walker, H Danni LIBRARY ASSOCIATE Unavailable Unavailable Walker, H Danni LIBRARY ASSOCIATE Unavailable Unavailable Walker, H Danni LIBRARY ASSOCIATE Unavailable Unavailable Walker, H Danni LIBRARY ASSOCIATE Unavailable Unavailable Walker, H Danni LIBRARY ASSOCIATE Unavailable Unavailable Walker, H Danni LIBRARY ASSOCIATE Unavailable Unavailable Walker, H Danni LIBRARY ASSOCIATE Unavailable Unavailable Walker, H Danni LIBRARY ASSOCIATE Unavailable Unavailable Walker, H Danni LIBRARY ASSOCIATE Unavailable Unavailable Walker, H Danni LIBRARY ASSOCIATE Unavailable Unavailable Walker, H Danni LIBRARY ASSOCIATE Unavailable Unavailable Walker, H Danni LIBRARY ASSOCIATE Unavailable Unavailable Walker, H Danni LIBRARY ASSOCIATE Unavailable Unavailable Walker, H Danni LIBRARY ASSOCIATE Unavailable Unavailable Walker, H Danni LIBRARY ASSOCIATE Unavailable Unavailable Walker, H Danni LIBRARY ASSOCIATE Unavailable Unavailable Walker, H Danni LIBRARY ASSOCIATE Unavailable Unavailable Walker, H Danni LIBRARY ASSOCIATE Unavailable Unavailable Walker, H Danni LIBRARY ASSOCIATE Unavailable Unavailable Walker, H Danni LIBRARY ASSOCIATE Unavailable Unavailable Walker, H Danni LIBRARY ASSOCIATE Unavailable Unavailable Walker, H Danni LIBRARY ASSOCIATE Unavailable Unavailable Walker, H Danni LIBRARY ASSOCIATE Unavailable Unavailable Walker, H Danni LIBRARY ASSOCIATE Unavailable Unavailable Walker, H Danni LIBRARY ASSOCIATE Unavailable Unavailable Walker, H Danni LIBRARY ASSOCIATE Unavailable Unavailable Walker, H Danni LIBRARY ASSOCIATE Unavailable Unavailable Walker, H Danni LIBRARY ASSOCIATE Unavailable Unavailable Walker, H Danni LIBRARY ASSOCIATE Unavailable Unavailable Walker, H Danni LIBRARY ASSOCIATE Unavailable Unavailable Walker, H Danni LIBRARY ASSOCIATE Unavailable Unavailable Walker, H Danni LIBRARY ASSOCIATE Unavailable Unavailable Walker, H Danni LIBRARY ASSOCIATE Unavailable Unavailable Walker, H Danni LIBRARY ASSOCIATE Unavailable Unavailable Walker, H Danni LIBRARY ASSOCIATE Unavailable Unavailable Walker, H Danni LIBRARY ASSOCIATE Unavailable Unavailable Walker, H Danni LIBRARY ASSOCIATE Unavailable Unavailable Walker, H Danni LIBRARY ASSOCIATE Unavailable Unavailable Walker, H Danni LIBRARY ASSOCIATE Unavailable Unavailable Walker, H Danni LIBRARY ASSOCIATE Unavailable Unavailable Walker, H Danni LIBRARY ASSOCIATE Unavailable Unavailable Walker, H Danni LIBRARY ASSOCIATE Unavailable Unavailable Walker, H Danni LIBRARY ASSOCIATE Unavailable Unavailable RHODA, 0000{ Unavailable Unavailable MADISON HAYWARD MD Unavailable Unavailable MADISON HAYWARD MD Unavailable Unavailable MADISON HAYWARD MD Unavailable Unavailable MADISON HAYWARD MD Unavailable Unavailable MADISON HAYWARD MD Unavailable Unavailable MADISON HAYWARD MD Unavailable Unavailable MADISON HAYWARD MD Unavailable Unavailable MADISON HAYWARD MD Unavailable Unavailable MADISON HAYWARD MD Unavailable Unavailable MADISON HAYWARD MD Unavailable Unavailable MADISON HAYWARD MD Unavailable Unavailable MADISON HAYWARD MD Unavailable Unavailable MADISON HAYWARD MD Unavailable Unavailable HAYWARD, MADISON MD Unavailable Unavailable HAYWARD, MADISON MD Unavailable Unavailable HAYWARD, MADISON MD Unavailable Unavailable HAYWARD, MADISON MD Unavailable Unavailable HAYWARD, MADISON MD Unavailable Unavailable HAYWARD, MADISON MD Unavailable Unavailable HAYWARD, MADISON MD Unavailable Unavailable HAYWARD, MADISON MD Unavailable Unavailable HAYWARD, MADISON MD Unavailable Unavailable HAYWARD, MADISON MD Unavailable Unavailable HAYWARD, MADISON MD Unavailable Unavailable HAYWARD, MADISON MD Unavailable Unavailable HAYWARD, MADISON MD Unavailable Unavailable HAYWARD, MADISON MD Unavailable Unavailable HAYWARD, MADISON MD Unavailable Unavailable HAYWARD, MADISON MD Unavailable Unavailable HAYWARD, MADISON MD Unavailable Unavailable Re-disclosure Warning The records that you are about to access may contain information from federally-assisted alcohol or drug abuse programs. If such information is present, then the following federally mandated warning applies: This information has been disclosed to you from records protected by federal confidentiality rules (42 CFR part 2). The federal rules prohibit you from making any further disclosure of this information unless further disclosure is expressly permitted by the written consent of the person to whom it pertains or as otherwise permitted by 42 CFR part 2. A general authorization for the release of medical or other information is NOT sufficient for this purpose. The Federal rules restrict any use of the information to criminally investigate or prosecute any alcohol or drug abuse patient.The records that you are about to access may contain highly sensitive health information, the redisclosure of which is protected by Article 27-F of the [facility] Public Health law. If you continue you may have access to information: Regarding HIV / AIDS; Provided by facilities licensed or operated by the [facility] Office of Mental Health; or Provided by the [facility] Office for People With Developmental Disabilities. If such information is present, then the following [facility] mandated warning applies: This information has been disclosed to you from confidential records which are protected by state law. State law prohibits you from making any further disclosure of this information without the specific written consent of the person to whom it pertains, or as otherwise permitted by law. Any unauthorized further disclosure in violation of state law may result in a fine or mcfp sentence or both. A general authorization for the release of medical or other information is NOT sufficient authorization for further disc losure. Allergies and Adverse Reactions Type Description Substance Reaction Status Data Source(s ) Drug allergy Dilaudid Hydromorphone Dyspnea Active eCW1 ([facility]) Family History Family Member Name Family Member Gender Family Member Status Date o f Status Description Data Source(s) Unknown Female Problem MEDENT ([facility]) Unknown Male Problem MEDENT ([facility] () - in his 30's Encounters Encounter Providers Location Date Indications Data Source(s ) Outpatient Attender: Ina Gallardo MD 06/05/2021 12:00:0 0 AM [facility] Outpatient Attender: Riaz Fisher 02/27/2021 12:00:0 0 AM [facility] Outpatient Attender: Riaz Fisher 02/15/2021 12:00:0 0 AM [facility] Outpatient Attender: VETO PIEDRA 12/29/2020 12:00:00 AM [facility] ([id number]) For Template [place] [address] [place] [address] 11/15/2020 12:00:00 AM EST eCW1 ([facility]) Outpatient Attender: Riaz Fisher [id number] 03/2021 12:00:00 AM EST - 11/14/2020 12:17:20 PM EST Type 2 diabetes mellitus with hypoglycem ia without coma [facility] Type 2 diabetes mellitus with hypoglycem ia without coma ([id number]) For [facility] [place] [address] [place] [address] 11/01/2020 12:00:00 AM EST eCW1 ([facility]) Outpatient Attender: Kevin Martin/Caitlin/Pedrito/Erma indl 10/31/2020 07:40:00 AM EST MEDENT ([facility]) Unknown [address] [facility] [address] 10/25/2020 12:00:00 AM EST eCW1 ([facility]) Unknown [address] [facility] [address] 10/25/2020 12:00:00 AM EST eCW1 ([facility]) Outpatient Attender: Kevin Martin/Molina/Pedrito/Re indl 10/24/2020 07:00:00 AM EST MEDENT ([facility]) Outpatient [address] [facility] [address] 10/18/2020 12:00:00 AM EST eCW1 ([facility]) Outpatient Attender: Kevin Martin/Molina/Pedrito/Re indl 10/16/2020 07:10:00 AM EST MEDENT ([facility]) Office Visit Attender: Danni Garcia NP [facility] Internal Med [facility] [place] 10/09/2020 09:30:00 AM EST [facility] ([facility] ([id number]) For [facility] [place] [address] 10/04/2020 12:00:00 AM EST eCW1 ([facility]) Outpatient [address] [facility] [address] 10/03/2020 12:00:00 AM EST eCW1 ([facility]) Unknown [address] [facility] [address] 10/02/2020 12:00:00 AM EST eCW1 ([facility]) Outpatient Attender: VETO PIEDRAReferrer: Agustin Boogie MD 07 [id number] 09/29/2020 12:00:00 AM EST - 09/29/2020 11:32:18 AM EST Dysphagia, unspecified [facility] Dysphagia, unspecified Outpatient Attender: VETO PIEDRA 09/29/2020 12:00:00 AM [facility] Unknown [address] [facility] [address] 09/28/2020 12:00:00 AM EST eCW1 ([facility]) Outpatient Referrer: MAVERICK CUEVA MD 09/28/2020 12:00:00 A M [facility] ([id number]) For [facility] [place] [address] 09/27/2020 12:00:00 AM EST eCW1 ([facility]) Outpatient [address] [facility] [address] 09/18/2020 12:00:00 AM EST eCW1 ([facility]) Unknown [address] [facility] [place] [address] 09/13/2020 12:00:00 AM EST eCW1 ([facility]) Unknown [address] [facility] Y [address] 09/13/2020 12:00:00 AM EST eCW1 ([facility]) Outpatient [address] [facility] Y [address] 09/13/2020 12:00:00 AM EST eCW1 ([facility]) Unknown [address] [facility] [address] 09/12/2020 12:00:00 AM EST eCW1 ([facility]) (PT/INR TV) Telephone Encounter Visit [address] [place] [address] 09/11/2020 12:00:00 AM EST eCW1 ([facility]) Unknown [address] [facility] [address] 09/11/2020 12:00:00 AM EST eCW1 ([facility]) Office Visit Attender: Danni Garcia NP CMP Internal Med at [facility] 09/08/2020 09:30:00 AM EDT MEDENT ([facility]) ([id number]) For [facility] [place] [address] [place] [address] 09/06/2020 12:00:00 AM EDT eCW1 ([facility]) Office Visit Attender: CAS VILLEGAS DO CMP Internal Med at [place] 09/01/2020 03:13:00 AM EDT MED[facility] ([facility]) Office Visit Attender: Delio Olivera MD CMP Internal Med at [place] 08/30/2020 03:33:00 AM EDT [facility] ([facility]) Inpatient Attender: Delio Olivera MD 08/29/2020 06:50 :48 AM EDT [facility] [place] [facility] Inpatient Attender: Delio Olivera MDAdmitter: Delio Olivera MD 08/29/2020 06:25:00 AM EDT - 09/01/2020 12:38:00 PM EDT OBESITY, E66.01 [facility] OBESITY, E66.01 Patient discharged. [place] ( in Healthcare facility) Attender: Sajan Olivera MDAdmitter: Delio Olivera MDConsultant: MARCO JAYLIN 08/29/2020 06:25:00 A M EDT [facility] Outpatient [address] [facility] [address] 08/28/2020 12:00:00 AM EDT eCW1 ([facility]) Unknown [address] [facility] [address] 08/28/2020 12:00:00 AM EDT eCW1 ([facility]) Outpatient [address] [facility] [address] 08/25/2020 12:00:00 AM EDT eCW1 ([facility]) Unknown [address] [facility] [address] 08/25/2020 12:00:00 AM EDT eCW1 ([facility]) Unknown [address] [facility] [address] 08/24/2020 12:00:00 AM EDT eCW1 ([facility]) Outpatient [address] [facility] [address] 08/23/2020 12:00:00 AM EDT eCW1 ([facility]) Outpatient [address] [facility] [address] 08/22/2020 12:00:00 AM EDT eCW1 ([facility]) Outpatient Attender: Delio Olivera MD [facility] Internal Med at [place] 08/21/2020 12:30:00 PM EDT [facility] ([facility]) Outpatient [address] [facility] [address] 08/16/2020 12:00:00 AM EDT eCW1 ([facility]) Unknown [address] [facility] [address] 08/16/2020 12:00:00 AM EDT eCW1 ([facility]) Unknown [address] [facility] [address] 08/14/2020 12:00:00 AM EDT eCW1 ([facility]) Outpatient Attender: VETO PIEDRA 08/11/2020 12:00:00 AM ED [facility] Outpatient [address] [facility] [address] 08/10/2020 12:00:00 AM EDT eCW1 ([facility]) Outpatient Attender: 0000{ RHODA 08/09/2020 10:31:00 AM E DT [facility] Outpatient Attender: Delio Olivera MD 08/09/2020 10:31:00 AM EDT MORBID OBESITY [facility]ESITY Outpatient Attender: Ina Gallardo MD [id number] 08/08/2020 1 2:00:00 AM EDT Type 2 diabetes mellitus with hyperglycemia [facility] Type 2 diabetes mellitus with hyperglyce doug Outpatient Attender: Riaz Fisher 08/08/2020 12:00:0 0 AM [facility] Outpatient Attender: Yariel Lemon MD CMP [place] 07/24/2020 01:45:00 PM EDT [facility] ([facility]) Outpatient Attender: Danni Garcia NP CMP Internal Med [place] 07/21/2020 09:00:00 AM EDT [facility] ([facility]) Outpatient Attender: MAVERICK CUEVA MD [id number] 07/21/2020 12:00:00 AM [facility] [address] [place] [address] 07/14/2020 12:00:00 AM EDT eCW1 ([facility]) Outpatient Attender: Riaz Fisher [id number] 07/06/2020 1 2:00:00 AM [facility] Outpatient Attender: Riaz Fisher 06/13/2020 12:00:0 0 AM EDT [facility] Outpatient Attender: Ren Weaver MD 06/12/2020 10:17: 54 AM EDT [facility] [place] [facility] Outpatient Attender: Ren Weaver MDAdmitter: Ren vallejo MD 06/12/2020 08:48:00 AM EDT - 06/12/2020 03:30:00 PM EDT ABNORMAL NUCLEAR TEST LEFT HEART CATH [facility] ABNORMAL NUCLEAR TEST LEFT HEART CATH Patient discharged. Outpatient Referrer: MAVERICK CUEVA MD 06/12/2020 12:00:00 A M T [facility] Outpatient Attender: Radha Cochran NP CMP Internal Med at [place] 06/09/2020 01:45:00 PM EDT [facility] ([facility]) Unknown [address] [facility] [address] 05/26/2020 12:00:00 AM EDT [facility]CW1 ([facility]) Outpatient [address] [facility] [address] 05/25/2020 12:00:00 AM EDT eCW1 ([facility]) Unknown [address] [facility] [address] 05/24/2020 12:00:00 AM EDT eCW1 ([facility]) [facility] [address] [facility] [address] 05/17/2020 12:00:00 AM EDT eCW1 ([facility]) Outpatient Attender: Yariel Lemon MD [facility]MP [place] [facility] [place] 05/01/2020 03:45:00 PM EDT MED[facility] ([facility]) Outpatient Attender: Yariel Lemon MD 05/01/2020 11: 48:00 AM EDT [place] [address] [address] [address] [facility] [place] [address] [address] [address] Unknown [address] [facility] [address] 04/28/2020 12:00:00 AM EDT eCW1 ([facility]) Outpatient Attender: MADISON HAYWARD MD Physical Therapy 08:15:00 AM EDT MEDENT ([facility]) Outpatient Attender: JOE COUNT INCLUDES [facility] 04/18/2020 07:39:07 PM E DT [facility] Unknown [address] [facility] [address] 04/18/2020 12:00:00 AM EDT eCW1 ([facility]) [place] [address] [facility] [address] 04/17/2020 12:00:00 AM EDT [facility]1 [facility] Outpatient Attender: Kevin Martin/Caitlin/Pedrito/Re indl 04/12/2020 10:40:00 AM EDT [facility] ([facility]) Outpatient [address] [facility] [address] 04/11/2020 12:00:00 AM EDT eCW1 ([facility]) Outpatient Referrer: Kevin Youssef MD 04/10/2020 09:23:00 PM EDT [facility] Outpatient Attender: JOE COUNT INCLUDES THE [facility] 04/08/2020 12:11:51 AM E DT [facility] [place] [address] [facility] [address] 04/06/2020 12:00:00 AM EDT eCW1 ([facility]) Outpatient Referrer: Kevin Youssef MD 04/04/2020 09:10:00 AM EDT [facility] [place] [address] [facility] [address] 04/04/2020 12:00:00 AM EDT eCW1 ([facility]) [facility] [place] [address] [facility] [address] 03/31/2020 12:00:00 AM EDT eCW1 ([facility]) Outpatient Referrer: Kevin Youssef MD 03/27/2020 09:18:00 AM EDT [facility] Outpatient Attender: Danni Garcia NP CMP Internal Med [place] 03/22/2020 10:30:00 AM EDT MEDENT ([facility]) MARCIA Hussein: [address], [place] [address], Ph. Attender: Danni Garcia NP [facility] - Main Schedule 03/22/2020 12:00:00 AM EDT AKIRA ([facility]) Outpatient Referrer: Kevin Youssef MD 03/20/2020 09:06:00 AM EDT [facility] Outpatient Attender: Kevin Martin/Caitlin/Pedrito/Re indl 03/15/2020 10:00:00 AM EDT MEDENT ([facility]) [address] [address] 03/14/2020 12:00:00 AM EDT eCW1 [facility] [address] [address] 03/07/2020 12:00:00 AM EDT eCW1 ([facility]) [address] [address] 03/06/2020 12:00:00 AM EDT eCW1 ([facility]) Outpatient Attender: Riaz Fisher [id number] 03/03/2020 1 2:00:00 AM EDT Hyperlipidemia, unspecified [facility] Hyperlipidemia, unspecified [address] [address] 03/03/2020 12:00:00 AM EDT eCW1 ([facility]) [address] [address] 03/03/2020 12:00:00 AM EDT eCW1 ([facility]) Outpatient Attender: MAVERICK CUEVA MD [id number] 02/25/2020 12:00:00 AM EDT [facility] Outpatient Attender: Danni Garcia NP CMP Internal Med [place] 02/16/2020 11:00:00 AM EDT [facility] ([facility]) MARCIA Hussein: [address], [place] [address], Ph. Attender: Danni Garcia LIBRARY ASSOCIATE [facility] - Main Schedule 02/16/2020 12:00:00 AM EDT AKIRA ([facility]) ALVARO HusseinP: [address], [place] [address], Ph. Attender: Danni Garcia LIBRARY ASSOCIATE [facility] - Main Schedule 02/16/2020 12:00:00 AM EDT AKIRA ([facility]) Outpatient Attender: Riaz Fisher 02/16/2020 12:00:0 0 AM EDT [facility] [address] [place] [address] 02/14/2020 12:00:00 AM EDT eCW1 ([facility]) Outpatient Referrer: MD MARGAUX REYNOLDS 02/10/2020 05:45: 00 AM EDT [facility] [address] [place] [address] 02/09/2020 12:00:00 AM EDT eCW1 ([facility]) [address] [address] 02/07/2020 12:00:00 AM EDT eCW1 ([facility]) [address] [address] 02/04/2020 12:00:00 AM EDT eCW1 ([facility]) [address] [address] 02/03/2020 12:00:00 AM EDT eCW1 ([facility]) [address] [address] 02/02/2020 12:00:00 AM EDT eCW1 ([facility]) [address] [address] 01/31/2020 12:00:00 AM EDT eCW1 ([facility]) [facility] [address] [place] [address], [place] [address] 01/28/2020 12:00:00 AM EDT eCW1 ([facility]) [address] [address] 01/27/2020 12:00:00 AM EDT eCW1 ([facility]) [facility] [address] [place] [address] 01/27/2020 12:00:00 AM EDT eCW1 ([facility]) [address] [address] 01/27/2020 12:00:00 AM EDT eCW1 ([facility]) Outpatient Referrer: MD MARGAUX REYNOLDS 01/25/2020 10:34: 00 AM EDT [facility] [address] [address] 01/18/2020 12:00:00 AM EDT eCW1 ([facility]) [address] [address] 01/17/2020 12:00:00 AM EDT eCW1 ([facility]) Outpatient Attender: Yariel Lemon MD [facility] [place] 01/10/2020 01:30:00 PM EST [facility]ENT ([facility]) Outpatient Attender: Yasir Gonzalez MD Physical Therapy 12/2019 07:30:00 AM EST MEDENT ([facility]) Outpatient Referrer: MD MARGAUX REYNOLDS 01/04/2020 12:09: 00 PM EST [facility] [address] [address] 01/03/2020 12:00:00 AM EST eCW1 ([facility]) [address] [address] 12/29/2019 12:00:00 AM EST eCW1 ([facility]) [facility] [address] [place] [address] 12/22/2019 12:00:00 AM EST eCW1 ([facility]) Outpatient Attender: Riaz Fisher 12/21/2019 12:00:0 0 AM EST [facility] [address] [place] [address] 12/16/2019 12:00:00 AM EST eCW1 ([facility]) Outpatient Attender: Danni Garcia NP [facility] Internal Med at [facility] 12/15/2019 09:58:00 AM EST [facility] ([facility]) Outpatient Attender: 0000{ MIRA LOMA 12/15/2019 09:36:00 AM E [facility] Outpatient Attender: Danni Garcia NP 12/15/2019 09:3 6:00 AM EST PERSONAL HISTORY OF OTHER VENOUS THROMBOSIS AND EMBOLISM/ MO [facility] PERSONAL HISTORY OF OTHER VENOUS THROMBO SIS AND EMBOLISM/ MO MARCIA Hussein: [address], [place] [address], Ph. Attender: Danni Garcia NP [facility] - Main Schedule 12/15/2019 12:00:00 AM EST AKIRA ([facility]) MARCIA Hussein: [address], [place] [address], Ph. Attender: Danni Garcia NP [facility] sicians - Main Schedule 12/15/2019 12:00:00 AM EST AKIRA ([facility]) MARCIA Hussein: [address], [place] [address], Ph. Attender: Danni Garcia NP [facility] sicians - Main Schedule 12/15/2019 12:00:00 AM EST AKIRA ([facility]) [facility] [address] [address] 12/01/2019 12:00:00 AM EST eCW1 ([facility]) Outpatient Attender: MAVERICK CUEVA MD [id number] 2019 12:00:00 AM EST - 11/19/2019 01:20:43 PM EST Unspecified osteoarthritis, unspecified site [facility] Unspecified osteoarthritis, unspecified site MARCIA Hussein: [address], [place] [address], Ph. Attender: Danni Garcia NP [facility] sicians - Main Schedule 11/01/2019 12:00:00 AM EST AKIRA ([facility]) MARCIA Hussein: [address], [place] [address], Ph. Attender: Danni Garcia NP [facility] - Main Schedule 11/01/2019 12:00:00 AM EST AKIRA ([facility]) MARCIA Hussein: [address], [place] [address], Ph. Attender: Danni Garcia NP [facility] - Main Schedule 11/01/2019 12:00:00 AM EST AKIRA ([facility]) MARCIA Hussein: [address], [place] [address], Ph. Attender: Danni Garcia NP [facility] - Main Schedule 11/01/2019 12:00:00 AM EST AKIRA ([facility]) Outpatient Attender: MAVERICK CUEVA MD 10/29/2019 12:00:[address] [facility] [place] [address] [place] [address], [place] [address] 10/18/2019 12:00:00 AM EST eCW1 ([facility]) [address] [address] 10/18/2019 12:00:00 AM EST eCW1 ([facility]) Outpatient Referrer: MD MARGAUX REYNOLDS 10/13/2019 09:02: 00 PM EST [facility] [place] [address] [facility] [address] 10/01/2019 12:00:00 AM EST eCW1 ([facility]) Outpatient Attender: MAVERCIK CUEVA MD [id number] 2018 12:00:00 AM EDT - 04/23/2019 12:19:28 PM EDT Rheumatoid arthritis with rheumatoid fac tor, unspecified [facility] Rheumatoid arthritis with rheumatoid fac tor, unspecified Immunizations Vaccine Date Status Description Data Source(s) IIV3. This is one of two codes replacing CVX 15, which is being retired. 08/23/2020 08:20:00 AM EDT completed eCW1 ([facility]) IIV3. This is one of two codes replacing CVX 15, which is being retired. 08/23/2020 08:20:00 AM EDT completed eCW1 ([facility]) IIV3. This is one of two codes replacing CVX 15, which is being retired. 08/23/2020 08:20:00 AM EDT completed eCW1 ([facility]) IIV3. This is one of two codes replacing CVX 15, which is being retired. 08/23/2020 08:20:00 AM EDT completed eCW1 ([facility]) IIV3. This is one of two codes replacing CVX 15, which is being retired. 08/23/2020 08:20:00 AM EDT completed eCW1 ([facility]) IIV3. This is one of two codes replacing CVX 15, which is being retired. 08/23/2020 08:20:00 AM EDT completed eCW1 ([facility]) IIV3. This is one of two codes replacing CVX 15, which is being retired. 08/23/2020 08:20:00 AM EDT completed eCW1 ([facility]) IIV3. This is one of two codes replacing CVX 15, which is being retired. 08/23/2020 08:20:00 AM EDT completed eCW1 ([facility]) IIV3. This is one of two codes replacing CVX 15, which is being retired. 08/23/2020 08:20:00 AM EDT completed eCW1 ([facility]) IIV3. This is one of two codes replacing CVX 15, which is being retired. 08/23/2020 08:20:00 AM EDT completed eCW1 ([facility]) IIV3. This is one of two codes replacing CVX 15, which is being retired. 08/23/2020 08:20:00 AM EDT completed eCW1 ([facility]) IIV3. This is one of two codes replacing CVX 15, which is being retired. 08/23/2020 08:20:00 AM EDT completed eCW1 ([facility]) IIV3. This is one of two codes replacing CVX 15, which is being retired. 08/23/2020 08:20:00 AM EDT completed eCW1 ([facility]) IIV3. This is one of two codes replacing CVX 15, which is being retired. 08/23/2020 08:20:00 AM EDT completed eCW1 ([facility]) IIV3. This is one of two codes replacing CVX 15, which is being retired. 08/23/2020 08:20:00 AM EDT completed eCW1 ([facility]) IIV3. This is one of two codes replacing CVX 15, which is being retired. 08/23/2020 08:20:00 AM EDT completed eCW1 ([facility]) IIV3. This is one of two codes replacing CVX 15, which is being retired. 08/23/2020 08:20:00 AM EDT completed eCW1 ([facility]) IIV3. This is one of two codes replacing CVX 15, which is being retired. 08/23/2020 08:20:00 AM EDT completed eCW1 ([facility]) IIV3. This is one of two codes replacing CVX 15, which is being retired. 08/23/2020 08:20:00 AM EDT completed eCW1 ([facility]) IIV3. This is one of two codes replacing CVX 15, which is being retired. 08/23/2020 08:20:00 AM EDT completed eCW1 ([facility]) IIV3. This is one of two codes replacing CVX 15, which is being retired. 08/23/2020 08:20:00 AM EDT completed eCW1 ([facility]) IIV3. This is one of two codes replacing CVX 15, which is being retired. 08/23/2020 08:20:00 AM EDT completed eCW1 ([facility]) IIV3. This is one of two codes replacing CVX 15, which is being retired. 08/23/2020 08:20:00 AM EDT completed eCW1 ([facility]) IIV3. This is one of two codes replacing CVX 15, which is being retired. 08/23/2020 08:20:00 AM EDT completed eCW1 ([facility]) IIV3. This is one of two codes replacing CVX 15, which is being retired. 08/23/2020 08:20:00 AM EDT completed eCW1 ([facility]) IIV3. This is one of two codes replacing CVX 15, which is being retired. 08/23/2020 08:20:00 AM EDT completed eCW1 ([facility]) IIV3. This is one of two codes replacing CVX 15, which is being retired. 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 MDD 102 units. DX: E11.65 [facility] Type 2 diabetes mellitus with hypoglycem ia unawareness levocetirizine dihydrochloride 5 MG Oral Tablet Levocetirizine Dihydrochloride 5 MG Oral Tablet (XYZAL) Levocetirizine Dihydrochloride 5 MG Oral Tablet (XYZAL ) 11/07/2020 12:00:00 AM EST aborted [facility] Gelsyn-3 Gelsyn-3 10/16/2020 12:00:00 AM EST activ e MEDENT ([facility], ) Methotrexate 2.5 MG Oral Tablet Methotrexate 2.5 MG Oral Tab let 09/29/2020 12:00:00 AM EST 20 mg Oral active Seropositive rhe umatoid arthritis Take 8 tablets by mouth every 7 (seven) days [facility] Seropositive rheumatoid arthritis Polymyxin B 28539 UNT/ML / Trimethoprim 1 MG/ML Ophthalmic Solution [Polytrim] Polytrim 09564-4.1 UNIT/ML Polytrim 42900-5.1 UNIT/ML 09/13/2020 12:00:00 AM EST active Polytrim 36791-2. 1 UNIT/ML eCW1 ([facility]) Polymyxin B 90931 UNT/ML / Trimethoprim 1 MG/ML Ophthalmic Solution [Polytrim] Polytrim 92730-1.1 UNIT/ML Polytrim 33417-7.1 UNIT/ML 09/13/2020 12:00:00 AM EST active Polytrim 43143-0. 1 UNIT/ML eCW1 ([facility]) Polymyxin B 60164 UNT/ML / Trimethoprim 1 MG/ML Ophthalmic Solution [Polytrim] Polytrim 02416-8.1 UNIT/ML Polytrim 90322-0.1 UNIT/ML 09/13/2020 12:00:00 AM EST suspended Polytrim 25341 -0.1 UNIT/ML eCW1 ([facility]) Polymyxin B 35722 UNT/ML / Trimethoprim 1 MG/ML Ophthalmic Solution [Polytrim] Polytrim 11359-0.1 UNIT/ML Polytrim 50368-0.1 UNIT/ML 09/13/2020 12:00:00 AM EST active Polytrim 96880-4. 1 UNIT/ML eCW1 ([facility]) Polymyxin B 27885 UNT/ML / Trimethoprim 1 MG/ML Ophthalmic Solution [Polytrim] Polytrim 16732-5.1 UNIT/ML Polytrim 53067-0.1 UNIT/ML 09/13/2020 12:00:00 AM EST active Polytrim 14031-8. 1 UNIT/ML eCW1 ([facility]) Polymyxin B 72709 UNT/ML / Trimethoprim 1 MG/ML Ophthalmic Solution [Polytrim] Polytrim 37371-7.1 UNIT/ML Polytrim 08419-5.1 UNIT/ML 09/13/2020 12:00:00 AM EST suspended Polytrim 45750 -0.1 UNIT/ML eCW1 ([facility]) Polymyxin B 20868 UNT/ML / Trimethoprim 1 MG/ML Ophthalmic Solution [Polytrim] Polytrim 17037-5.1 UNIT/ML Polytrim 87917-9.1 UNIT/ML 09/13/2020 12:00:00 AM EST active Polytrim 30798-4. 1 UNIT/ML eCW1 ([facility]) Polymyxin B 74973 UNT/ML / Trimethoprim 1 MG/ML Ophthalmic Solution [Polytrim] Polytrim 75554-8.1 UNIT/ML Polytrim 08435-3.1 UNIT/ML 09/13/2020 12:00:00 AM EST suspended Polytrim 29082 -0.1 UNIT/ML eCW1 ([facility]) Polymyxin B 03883 UNT/ML / Trimethoprim 1 MG/ML Ophthalmic Solution [Polytrim] Polytrim 77881-3.1 UNIT/ML Polytrim 84565-8.1 UNIT/ML 09/13/2020 12:00:00 AM EST suspended Polytrim 42927 -0.1 UNIT/ML eCW1 ([facility]) Polymyxin B 25879 UNT/ML / Trimethoprim 1 MG/ML Ophthalmic Solution [Polytrim] Polytrim 80529-6.1 UNIT/ML Polytrim 40239-6.1 UNIT/ML 09/13/2020 12:00:00 AM EST suspended Polytrim 10296 -0.1 UNIT/ML eCW1 ([facility]) Polymyxin B 56740 UNT/ML / Trimethoprim 1 MG/ML Ophthalmic Solution [Polytrim] Polytrim 56315-4.1 UNIT/ML Polytrim 15009-7.1 UNIT/ML 09/13/2020 12:00:00 AM EST suspended Polytrim 27668 -0.1 UNIT/ML eCW1 ([facility]) Polymyxin B 34184 UNT/ML / Trimethoprim 1 MG/ML Ophthalmic Solution [Polytrim] Polytrim 92181-5.1 UNIT/ML Polytrim 80354-9.1 UNIT/ML 09/13/2020 12:00:00 AM EST suspended Polytrim 23957 -0.1 UNIT/ML eCW1 ([facility]) Polymyxin B 09331 UNT/ML / Trimethoprim 1 MG/ML Ophthalmic Solution [Polytrim] Polytrim 71940-1.1 UNIT/ML Polytrim 75026-2.1 UNIT/ML 09/13/2020 12:00:00 AM EST suspended Polytrim 91121 -0.1 UNIT/ML eCW1 ([facility]) Polymyxin B 32075 UNT/ML / Trimethoprim 1 MG/ML Ophthalmic Solution [Polytrim] Polytrim 08288-0.1 UNIT/ML Polytrim 91044-7.1 UNIT/ML 09/13/2020 12:00:00 AM EST suspended Polytrim 00289 -0.1 UNIT/ML eCW1 ([facility]) Polymyxin B 76800 UNT/ML / Trimethoprim 1 MG/ML Ophthalmic Solution [Polytrim] Polytrim 59952-1.1 UNIT/ML Polytrim 76189-2.1 UNIT/ML 09/13/2020 12:00:00 AM EST active Polytrim 36857-4. 1 UNIT/ML eCW1 ([facility]) Polymyxin B 61487 UNT/ML / Trimethoprim 1 MG/ML Ophthalmic Solution [Polytrim] Polytrim 83657-3.1 UNIT/ML Polytrim 87593-1.1 UNIT/ML 09/13/2020 12:00:00 AM EST active Polytrim 21185-1. 1 UNIT/ML eCW1 ([facility]) Unifine Pentips Plus 31G X 5 MM (Insulin Pen Needle) 8470-38 5001 09/12/2020 12:00:00 AM EST active Type 2 diabetes mellitus with hyperglycemia, with long-term current use of insulin USE TO INJECT INSULIN FOUR TIMES A DAY [facility] Type 2 diabetes mellitus with hyperglyce doug, with long-term current use of insulin [employer] w/Device Kit 24297-483-72 08/08/2020 12:00:00 AM EDT 1 {each} Does not apply active Type 2 diabetes mellitus with hyperglycemia, with long-term current use of insulin 1 each by Does not ap ply route daily DX E 11.65 [facility] Type 2 diabetes mellitus with hyperglyce doug, with long-term current use of insulin 24 HR Metformin hydrochloride 500 MG Ext ended Release Oral Tablet metFORMIN HCl ER 500 MG Oral Tablet Extended Release 24 Hour (GLUCOPHAGE-XR) metFORMIN HCl ER 500 MG Oral Tablet Extended Release 24 Hour (GLUCOPHAGE-XR) 07/06/2020 12:00:00 AM EDT active Take one tablet with breakfast and 2 tablets with dinner [facility] Sulfamethoxazole 800 MG / Trimethoprim 160 MG Oral Tab let Sulfamethoxazole/Trimethoprim DS 06/29/2020 12:00:00 AM EDT ORAL active MEDENT ([facility] Levofloxacin 750 MG Oral Tablet Levofloxacin 06/29/2020 12:00:00 AM E DT ORAL active MEDENT ([facility] Cephalexin 500 MG Oral Tablet Cephalexin 06/21/2020 12:00:00 AM EDT ORAL active MED[facility] ([facility] Mupirocin 0.02 MG/MG Topical Ointment Mupirocin 06/21/2020 12:00:00 AM EDT active MEDENT ([facility] Ondansetron 4 MG Oral Tablet [Zofran] Zofran 06/09/2020 12:00:00 AM EDT active MEDENT ([facility]) Aspirin 81 MG Delayed Release Oral Tablet Aspirin 81 2019 12:00:00 AM EDT ORAL completed MEDENT ([facility]) 24 HR metoprolol succinate 25 MG Extended Release Oral Tablet Metoprolol Succinate ER 05/01/2020 12:00:00 AM EDT active MEDENT ([facility]) Unifine Pentips Plus 31G X 5 MM (Insulin Pen Needle) [id number] [id number] 03/09/2020 12:00:00 AM EDT active Type 2 diabetes mellitus with hyperglycemia, with long-term current use of insulin USE DIRECTED TO INJECT INSULIN FOUR TIMES A DAY [facility] Type 2 diabetes mellitus with hyperglyce doug, with long-term current use of insulin levocetirizine dihydrochloride 5 MG Oral Tablet Levocetirizine Dihydrochloride 5 MG Levocetirizine Dihydrochloride 5 MG 03/07/2020 12:00:00 AM EDT 1.0 {tablet_in_the_evening} active Levoceti rizine Dihydrochloride 5 MG eCW1 ([facility]) levocetirizine dihydrochloride 5 MG Oral Tablet Levocetirizine Dihydrochloride 5 MG Levocetirizine Dihydrochloride 5 MG 03/07/2020 12:00:00 AM EDT 1.0 {tablet_in_the_evening} active Levoceti rizine Dihydrochloride 5 MG eCW1 ([facility]) levocetirizine dihydrochloride 5 MG Oral Tablet Levocetirizine Dihydrochloride 5 MG Levocetirizine Dihydrochloride 5 MG 03/07/2020 12:00:00 AM EDT 1.0 {tablet_in_the_evening} active Levoceti rizine Dihydrochloride 5 MG eCW1 ([facility]) levocetirizine dihydrochloride 5 MG Oral Tablet Levocetirizine Dihydrochloride 5 MG Levocetirizine Dihydrochloride 5 MG 03/07/2020 12:00:00 AM EDT 1.0 {tablet_in_the_evening} active Levoceti rizine Dihydrochloride 5 MG eCW1 ([facility]) levocetirizine dihydrochloride 5 MG Oral Tablet Levocetirizine Dihydrochloride 5 MG Levocetirizine Dihydrochloride 5 MG 03/07/2020 12:00:00 AM EDT 1.0 {tablet_in_the_evening} active Levoceti rizine Dihydrochloride 5 MG eCW1 ([facility]) levocetirizine dihydrochloride 5 MG Oral Tablet Levocetirizine Dihydrochloride 5 MG Levocetirizine Dihydrochloride 5 MG 03/07/2020 12:00:00 AM EDT 1.0 {tablet_in_the_evening} active Levoceti rizine Dihydrochloride 5 MG eCW1 ([facility]) levocetirizine dihydrochloride 5 MG Oral Tablet Levocetirizine Dihydrochloride 5 MG Levocetirizine Dihydrochloride 5 MG 03/07/2020 12:00:00 AM EDT active 1 tablet in the evening eCW1 ([facility]) levocetirizine dihydrochloride 5 MG Oral Tablet Levocetirizine Dihydrochloride 5 MG Levocetirizine Dihydrochloride 5 MG 03/07/2020 12:00:00 AM EDT 1.0 {tablet_in_the_evening} active Levoceti rizine Dihydrochloride 5 MG eCW1 ([facility]) levocetirizine dihydrochloride 5 MG Oral Tablet Levocetirizine Dihydrochloride 5 MG Levocetirizine Dihydrochloride 5 MG 03/07/2020 12:00:00 AM EDT 1.0 {tablet_in_the_evening} active Levoceti rizine Dihydrochloride 5 MG eCW1 ([facility]) levocetirizine dihydrochloride 5 MG Oral Tablet Levocetirizine Dihydrochloride 5 MG Levocetirizine Dihydrochloride 5 MG 03/07/2020 12:00:00 AM EDT 1.0 {tablet_in_the_evening} active Levoceti rizine Dihydrochloride 5 MG eCW1 ([facility]) levocetirizine dihydrochloride 5 MG Oral Tablet Levocetirizine Dihydrochloride 5 MG Levocetirizine Dihydrochloride 5 MG 03/07/2020 12:00:00 AM EDT 1.0 {tablet_in_the_evening} active Levoceti rizine Dihydrochloride 5 MG eCW1 ([facility]) levocetirizine dihydrochloride 5 MG Oral Tablet Levocetirizine Dihydrochloride 5 MG Levocetirizine Dihydrochloride 5 MG 03/07/2020 12:00:00 AM EDT 1.0 {tablet_in_the_evening} active Levoceti rizine Dihydrochloride 5 MG eCW1 ([facility]) levocetirizine dihydrochloride 5 MG Oral Tablet Levocetirizine Dihydrochloride 5 MG Levocetirizine Dihydrochloride 5 MG 03/07/2020 12:00:00 AM EDT 1.0 {tablet_in_the_evening} active Levoceti rizine Dihydrochloride 5 MG eCW1 ([facility]) levocetirizine dihydrochloride 5 MG Oral Tablet Levocetirizine Dihydrochloride 5 MG Levocetirizine Dihydrochloride 5 MG 03/07/2020 12:00:00 AM EDT 1.0 {tablet_in_the_evening} active Levoceti rizine Dihydrochloride 5 MG eCW1 ([facility]) levocetirizine dihydrochloride 5 MG Oral Tablet Levocetirizine Dihydrochloride 5 MG Levocetirizine Dihydrochloride 5 MG 03/07/2020 12:00:00 AM EDT 1.0 {tablet_in_the_evening} active Levoceti rizine Dihydrochloride 5 MG eCW1 ([facility]) levocetirizine dihydrochloride 5 MG Oral Tablet Levocetirizine Dihydrochloride 5 MG Levocetirizine Dihydrochloride 5 MG 03/07/2020 12:00:00 AM EDT 1.0 {tablet_in_the_evening} active Levoceti rizine Dihydrochloride 5 MG eCW1 ([facility]) levocetirizine dihydrochloride 5 MG Oral Tablet Levocetirizine Dihydrochloride 5 MG Levocetirizine Dihydrochloride 5 MG 03/07/2020 12:00:00 AM EDT 1.0 {tablet_in_the_evening} active Levoceti rizine Dihydrochloride 5 MG eCW1 ([facility]) levocetirizine dihydrochloride 5 MG Oral Tablet Levocetirizine Dihydrochloride 5 MG Levocetirizine Dihydrochloride 5 MG 03/07/2020 12:00:00 AM EDT 1.0 {tablet_in_the_evening} active Levoceti rizine Dihydrochloride 5 MG eCW1 ([facility]) levocetirizine dihydrochloride 5 MG Oral Tablet Levocetirizine Dihydrochloride 5 MG Levocetirizine Dihydrochloride 5 MG 03/07/2020 12:00:00 AM EDT 1.0 {tablet_in_the_evening} active Levoceti rizine Dihydrochloride 5 MG eCW1 ([facility]) levocetirizine dihydrochloride 5 MG Oral Tablet Levocetirizine Dihydrochloride 5 MG Levocetirizine Dihydrochloride 5 MG 03/07/2020 12:00:00 AM EDT 1.0 {tablet_in_the_evening} active Levoceti rizine Dihydrochloride 5 MG eCW1 ([facility]) levocetirizine dihydrochloride 5 MG Oral Tablet Levocetirizine Dihydrochloride 5 MG Levocetirizine Dihydrochloride 5 MG 03/07/2020 12:00:00 AM EDT 1.0 {tablet_in_the_evening} active Levoceti rizine Dihydrochloride 5 MG eCW1 ([facility]) levocetirizine dihydrochloride 5 MG Oral Tablet Levocetirizine Dihydrochloride 5 MG Levocetirizine Dihydrochloride 5 MG 03/07/2020 12:00:00 AM EDT 1.0 {tablet_in_the_evening} active Levoceti rizine Dihydrochloride 5 MG eCW1 ([facility]) levocetirizine dihydrochloride 5 MG Oral Tablet Levocetirizine Dihydrochloride 5 MG Levocetirizine Dihydrochloride 5 MG 03/07/2020 12:00:00 AM EDT 1.0 {tablet_in_the_evening} active Levoceti rizine Dihydrochloride 5 MG eCW1 ([facility]) levocetirizine dihydrochloride 5 MG Oral Tablet Levocetirizine Dihydrochloride 5 MG Levocetirizine Dihydrochloride 5 MG 03/07/2020 12:00:00 AM EDT 1.0 {tablet_in_the_evening} active Levoceti rizine Dihydrochloride 5 MG eCW1 ([facility]) levocetirizine dihydrochloride 5 MG Oral Tablet Levocetirizine Dihydrochloride 5 MG Levocetirizine Dihydrochloride 5 MG 03/07/2020 12:00:00 AM EDT 1.0 {tablet_in_the_evening} active Levoceti rizine Dihydrochloride 5 MG eCW1 ([facility]) levocetirizine dihydrochloride 5 MG Oral Tablet Levocetirizine Dihydrochloride 5 MG Levocetirizine Dihydrochloride 5 MG 03/07/2020 12:00:00 AM EDT 1.0 {tablet_in_the_evening} active Levoceti rizine Dihydrochloride 5 MG eCW1 ([facility]) levocetirizine dihydrochloride 5 MG Oral Tablet Levocetirizine Dihydrochloride 5 MG Levocetirizine Dihydrochloride 5 MG 03/07/2020 12:00:00 AM EDT 1.0 {tablet_in_the_evening} active Levoceti rizine Dihydrochloride 5 MG eCW1 ([facility]) levocetirizine dihydrochloride 5 MG Oral Tablet Levocetirizine Dihydrochloride 5 MG Levocetirizine Dihydrochloride 5 MG 03/07/2020 12:00:00 AM EDT 1.0 {tablet_in_the_evening} active Levoceti rizine Dihydrochloride 5 MG eCW1 ([facility]) levocetirizine dihydrochloride 5 MG Oral Tablet Levocetirizine Dihydrochloride 5 MG Levocetirizine Dihydrochloride 5 MG 03/07/2020 12:00:00 AM EDT 1.0 {tablet_in_the_evening} active Levoceti rizine Dihydrochloride 5 MG eCW1 ([facility]) levocetirizine dihydrochloride 5 MG Oral Tablet Levocetirizine Dihydrochloride 5 MG Levocetirizine Dihydrochloride 5 MG 03/07/2020 12:00:00 AM EDT 1.0 {tablet_in_the_evening} active Levoceti rizine Dihydrochloride 5 MG eCW1 ([facility]) levocetirizine dihydrochloride 5 MG Oral Tablet Levocetirizine Dihydrochloride 5 MG Levocetirizine Dihydrochloride 5 MG 03/07/2020 12:00:00 AM EDT 1.0 {tablet_in_the_evening} active Levoceti rizine Dihydrochloride 5 MG eCW1 ([facility]) levocetirizine dihydrochloride 5 MG Oral Tablet Levocetirizine Dihydrochloride 5 MG Levocetirizine Dihydrochloride 5 MG 03/07/2020 12:00:00 AM EDT 1.0 {tablet_in_the_evening} active Levoceti rizine Dihydrochloride 5 MG eCW1 ([facility]) levocetirizine dihydrochloride 5 MG Oral Tablet Levocetirizine Dihydrochloride 5 MG Levocetirizine Dihydrochloride 5 MG 03/07/2020 12:00:00 AM EDT 1.0 {tablet_in_the_evening} active Levoceti rizine Dihydrochloride 5 MG eCW1 ([facility]) levocetirizine dihydrochloride 5 MG Oral Tablet Levocetirizine Dihydrochloride 5 MG Levocetirizine Dihydrochloride 5 MG 03/07/2020 12:00:00 AM EDT 1.0 {tablet_in_the_evening} active Levoceti rizine Dihydrochloride 5 MG eCW1 ([facility]) levocetirizine dihydrochloride 5 MG Oral Tablet Levocetirizine Dihydrochloride 5 MG Levocetirizine Dihydrochloride 5 MG 03/07/2020 12:00:00 AM EDT 1.0 {tablet_in_the_evening} active Levoceti rizine Dihydrochloride 5 MG eCW1 ([facility]) levocetirizine dihydrochloride 5 MG Oral Tablet Levocetirizine Dihydrochloride 5 MG Levocetirizine Dihydrochloride 5 MG 03/07/2020 12:00:00 AM EDT 1.0 {tablet_in_the_evening} active Levoceti rizine Dihydrochloride 5 MG eCW1 ([facility]) levocetirizine dihydrochloride 5 MG Oral Tablet Levocetirizine Dihydrochloride 5 MG Levocetirizine Dihydrochloride 5 MG 03/07/2020 12:00:00 AM EDT 1.0 {tablet_in_the_evening} active Levoceti rizine Dihydrochloride 5 MG eCW1 ([facility]) Ibuprofen 800 MG Oral Tablet Ibuprofen 800 MG 03/03/2020 12:00:00 AM E DT suspended Ibuprofen 800 MG eCW1 ([facility]) Ibuprofen 800 MG Oral Tablet Ibuprofen 800 MG 03/03/2020 12:00:00 AM E DT active Ibuprofen 800 MG eCW1 ([facility]) Triamcinolone Acetonide 55 MCG/ACT Triamcinolone Acetonide 5 5 MCG/ACT 03/03/2020 12:00:00 AM EDT 1.0 {spray_in_each_nostril} act [place] Triamcinolone Acetonide 55 MCG/ACT eCW1 ([facility]) Triamcinolone Acetonide 55 MCG/ACT Triamcinolone Acetonide 5 5 MCG/ACT 03/03/2020 12:00:00 AM EDT 1.0 {spray_in_each_nostril} leon pended Triamcinolone Acetonide 55 MCG/ACT eCW1 ([facility]) Fexofenadine hydrochloride 180 MG Oral Tablet Fexofena dine HCl 180 MG Fexofenadine HCl 180 MG 03/03/2020 12:00:00 AM EDT 1.0 {tablet_as_nee ded} suspended Fexofenadine HCl 180 MG eCW1 ([facility]) Fexofenadine hydrochloride 180 MG Oral Tablet Fexofena dine HCl 180 MG Fexofenadine HCl 180 MG 03/03/2020 12:00:00 AM EDT 1.0 {tablet_as_nee ded} suspended Fexofenadine HCl 180 MG eCW1 ([facility]) Fexofenadine hydrochloride 180 MG Oral Tablet Fexofena dine HCl 180 MG Fexofenadine HCl 180 MG 03/03/2020 12:00:00 AM EDT 1.0 {tablet_as_nee ded} suspended Fexofenadine HCl 180 MG eCW1 ([facility]) Ibuprofen 800 MG Oral Tablet Ibuprofen 800 MG 03/03/2020 12:00:00 AM E DT suspended Ibuprofen 800 MG eCW1 ([facility]) Ibuprofen 800 MG Oral Tablet Ibuprofen 800 MG 03/03/2020 12:00:00 AM E DT active Ibuprofen 800 MG eCW1 ([facility]) Triamcinolone Acetonide 55 MCG/ACT Triamcinolone Acetonide 5 5 MCG/ACT 03/03/2020 12:00:00 AM EDT 1.0 {spray_in_each_nostril} leon pended Triamcinolone Acetonide 55 MCG/ACT eCW1 ([facility]) Fexofenadine hydrochloride 180 MG Oral Tablet Fexofena dine HCl 180 MG Fexofenadine HCl 180 MG 03/03/2020 12:00:00 AM EDT active 1 tablet as needed eCW1 ([facility]) Fexofenadine hydrochloride 180 MG Oral Tablet Fexofena dine HCl 180 MG Fexofenadine HCl 180 MG 03/03/2020 12:00:00 AM EDT 1.0 {tablet_as_nee ded} suspended Fexofenadine HCl 180 MG eCW1 ([facility]) Ibuprofen 800 MG Oral Tablet Ibuprofen 800 MG 03/03/2020 12:00:00 AM E DT suspended Ibuprofen 800 MG eCW1 ([facility]) Fexofenadine hydrochloride 180 MG Oral Tablet Fexofena dine HCl 180 MG Fexofenadine HCl 180 MG 03/03/2020 12:00:00 AM EDT 1.0 {tablet_as_nee ded} suspended Fexofenadine HCl 180 MG eCW1 ([facility]) Ibuprofen 800 MG Oral Tablet Ibuprofen 800 MG 03/03/2020 12:00:00 AM E DT suspended Ibuprofen 800 MG eCW1 ([facility]) Fexofenadine hydrochloride 180 MG Oral Tablet Fexofena dine HCl 180 MG Fexofenadine HCl 180 MG 03/03/2020 12:00:00 AM EDT 1.0 {tablet_as_nee ded} suspended Fexofenadine HCl 180 MG eCW1 ([facility]) Ibuprofen 800 MG Oral Tablet Ibuprofen 800 MG 03/03/2020 12:00:00 AM E DT suspended Ibuprofen 800 MG eCW1 ([facility]) Ibuprofen 800 MG Oral Tablet Ibuprofen 800 MG 03/03/2020 12:00:00 AM E DT suspended Ibuprofen 800 MG eCW1 ([facility]) Fexofenadine hydrochloride 180 MG Oral Tablet Fexofena dine HCl 180 MG Fexofenadine HCl 180 MG 03/03/2020 12:00:00 AM EDT 1.0 {tablet_as_nee ded} active Fexofenadine HCl 180 MG eCW1 ([facility]) Triamcinolone Acetonide 55 MCG/ACT Triamcinolone Acetonide 5 5 MCG/ACT 03/03/2020 12:00:00 AM EDT 1.0 {spray_in_each_nostril} leon pended Triamcinolone Acetonide 55 MCG/ACT eCW1 ([facility]) Fexofenadine hydrochloride 180 MG Oral Tablet Fexofena dine HCl 180 MG Fexofenadine HCl 180 MG 03/03/2020 12:00:00 AM EDT 1.0 {tablet_as_nee ded} suspended Fexofenadine HCl 180 MG eCW1 ([facility]) Triamcinolone Acetonide 55 MCG/ACT Triamcinolone Acetonide 5 5 MCG/ACT 03/03/2020 12:00:00 AM EDT 1.0 {spray_in_each_nostril} leon pended Triamcinolone Acetonide 55 MCG/ACT eCW1 ([facility]) Ibuprofen 800 MG Oral Tablet Ibuprofen 800 MG 03/03/2020 12:00:00 AM E DT active Ibuprofen 800 MG eCW1 ([facility]) Ibuprofen 800 MG Oral Tablet Ibuprofen 800 MG 03/03/2020 12:00:00 AM E DT suspended Ibuprofen 800 MG eCW1 ([facility]) Fexofenadine hydrochloride 180 MG Oral Tablet Fexofena dine HCl 180 MG Fexofenadine HCl 180 MG 03/03/2020 12:00:00 AM EDT 1.0 {tablet_as_nee ded} suspended Fexofenadine HCl 180 MG eCW1 ([facility]) Fexofenadine hydrochloride 180 MG Oral Tablet Fexofena dine HCl 180 MG Fexofenadine HCl 180 MG 03/03/2020 12:00:00 AM EDT 1.0 {tablet_as_nee ded} suspended Fexofenadine HCl 180 MG eCW1 ([facility]) Triamcinolone Acetonide 55 MCG/ACT Triamcinolone Acetonide 5 5 MCG/ACT 03/03/2020 12:00:00 AM EDT 1.0 {spray_in_each_nostril} leon pended Triamcinolone Acetonide 55 MCG/ACT eCW1 ([facility]) Triamcinolone Acetonide 55 MCG/ACT Triamcinolone Acetonide 5 5 MCG/ACT 03/03/2020 12:00:00 AM EDT 1.0 {spray_in_each_nostril} leon pended Triamcinolone Acetonide 55 MCG/ACT eCW1 ([facility]) Fexofenadine hydrochloride 180 MG Oral Tablet Fexofena dine HCl 180 MG Fexofenadine HCl 180 MG 03/03/2020 12:00:00 AM EDT 1.0 {tablet_as_nee ded} suspended Fexofenadine HCl 180 MG eCW1 ([facility]) Triamcinolone Acetonide 55 MCG/ACT Triamcinolone Acetonide 5 5 MCG/ACT 03/03/2020 12:00:00 AM EDT 1.0 {spray_in_each_nostril} leon pended Triamcinolone Acetonide 55 MCG/ACT eCW1 ([facility]) Triamcinolone Acetonide 55 MCG/ACT Triamcinolone Acetonide 5 5 MCG/ACT 03/03/2020 12:00:00 AM EDT 1.0 {spray_in_each_nostril} leon pended Triamcinolone Acetonide 55 MCG/ACT eCW1 ([facility]) Triamcinolone Acetonide 55 MCG/ACT Triamcinolone Acetonide 5 5 MCG/ACT 03/03/2020 12:00:00 AM EDT 1.0 {spray_in_each_nostril} act [place] Triamcinolone Acetonide 55 MCG/ACT eCW1 ([facility]) Fexofenadine hydrochloride 180 MG Oral Tablet Fexofena dine HCl 180 MG Fexofenadine HCl 180 MG 03/03/2020 12:00:00 AM EDT 1.0 {tablet_as_nee ded} active Fexofenadine HCl 180 MG eCW1 ([facility]) Ibuprofen 800 MG Oral Tablet Ibuprofen 800 MG 03/03/2020 12:00:00 AM E DT suspended Ibuprofen 800 MG eCW1 ([facility]) Ibuprofen 800 MG Oral Tablet Ibuprofen 800 MG 03/03/2020 12:00:00 AM E DT suspended Ibuprofen 800 MG eCW1 ([facility]) Ibuprofen 800 MG Oral Tablet Ibuprofen 800 MG 03/03/2020 12:00:00 AM E DT suspended Ibuprofen 800 MG eCW1 ([facility]) Ibuprofen 800 MG Oral Tablet Ibuprofen 800 MG 03/03/2020 12:00:00 AM E DT suspended Ibuprofen 800 MG eCW1 ([facility]) Fexofenadine hydrochloride 180 MG Oral Tablet Fexofena dine HCl 180 MG Fexofenadine HCl 180 MG 03/03/2020 12:00:00 AM EDT 1.0 {tablet_as_nee ded} active Fexofenadine HCl 180 MG eCW1 ([facility]) Triamcinolone Acetonide 55 MCG/ACT Triamcinolone Acetonide 5 5 MCG/ACT 03/03/2020 12:00:00 AM EDT 1.0 {spray_in_each_nostril} leon pended Triamcinolone Acetonide 55 MCG/ACT eCW1 ([facility]) Ibuprofen 800 MG Oral Tablet Ibuprofen 800 MG 03/03/2020 12:00:00 AM E DT active Ibuprofen 800 MG eCW1 ([facility]) Triamcinolone Acetonide 55 MCG/ACT Triamcinolone Acetonide 5 5 MCG/ACT 03/03/2020 12:00:00 AM EDT 1.0 {spray_in_each_nostril} leon pended Triamcinolone Acetonide 55 MCG/ACT eCW1 ([facility]) Fexofenadine hydrochloride 180 MG Oral Tablet Fexofena dine HCl 180 MG Fexofenadine HCl 180 MG 03/03/2020 12:00:00 AM EDT 1.0 {tablet_as_nee ded} suspended Fexofenadine HCl 180 MG eCW1 ([facility]) Fexofenadine hydrochloride 180 MG Oral Tablet Fexofena dine HCl 180 MG Fexofenadine HCl 180 MG 03/03/2020 12:00:00 AM EDT 1.0 {tablet_as_nee ded} active Fexofenadine HCl 180 MG eCW1 ([facility]) Fexofenadine hydrochloride 180 MG Oral Tablet Fexofena dine HCl 180 MG Fexofenadine HCl 180 MG 03/03/2020 12:00:00 AM EDT 1.0 {tablet_as_nee ded} suspended Fexofenadine HCl 180 MG eCW1 ([facility]) Fexofenadine hydrochloride 180 MG Oral Tablet Fexofena dine HCl 180 MG Fexofenadine HCl 180 MG 03/03/2020 12:00:00 AM EDT 1.0 {tablet_as_nee ded} active Fexofenadine HCl 180 MG eCW1 ([facility]) Triamcinolone Acetonide 55 MCG/ACT Triamcinolone Acetonide 5 5 MCG/ACT 03/03/2020 12:00:00 AM EDT 1.0 {spray_in_each_nostril} leon pended Triamcinolone Acetonide 55 MCG/ACT eCW1 ([facility]) Fexofenadine hydrochloride 180 MG Oral Tablet Fexofena dine HCl 180 MG Fexofenadine HCl 180 MG 03/03/2020 12:00:00 AM EDT 1.0 {tablet_as_nee ded} suspended Fexofenadine HCl 180 MG eCW1 ([facility]) Fexofenadine hydrochloride 180 MG Oral Tablet Fexofena dine HCl 180 MG Fexofenadine HCl 180 MG 03/03/2020 12:00:00 AM EDT 1.0 {tablet_as_nee ded} suspended Fexofenadine HCl 180 MG eCW1 ([facility]) Triamcinolone Acetonide 55 MCG/ACT Triamcinolone Acetonide 5 5 MCG/ACT 03/03/2020 12:00:00 AM EDT 1.0 {spray_in_each_nostril} leon pended Triamcinolone Acetonide 55 MCG/ACT eCW1 ([facility]) Fexofenadine hydrochloride 180 MG Oral Tablet Fexofena dine HCl 180 MG Fexofenadine HCl 180 MG 03/03/2020 12:00:00 AM EDT 1.0 {tablet_as_nee ded} active Fexofenadine HCl 180 MG eCW1 ([facility]) Triamcinolone Acetonide 55 MCG/ACT Triamcinolone Acetonide 5 5 MCG/ACT 03/03/2020 12:00:00 AM EDT 1.0 {spray_in_each_nostril} leon pended Triamcinolone Acetonide 55 MCG/ACT eCW1 ([facility]) Triamcinolone Acetonide 55 MCG/ACT Triamcinolone Acetonide 5 5 MCG/ACT 03/03/2020 12:00:00 AM EDT 1.0 {spray_in_each_nostril} leon pended Triamcinolone Acetonide 55 MCG/ACT eCW1 ([facility]) Triamcinolone Acetonide 55 MCG/ACT Triamcinolone Acetonide 5 5 MCG/ACT 03/03/2020 12:00:00 AM EDT 1.0 {spray_in_each_nostril} [place] Triamcinolone Acetonide 55 MCG/ACT eCW1 ([facility]) Triamcinolone Acetonide 55 MCG/ACT Triamcinolone Acetonide 5 5 MCG/ACT 03/03/2020 12:00:00 AM EDT 1.0 {spray_in_each_nostril} leon pended Triamcinolone Acetonide 55 MCG/ACT eCW1 ([facility]) Triamcinolone Acetonide 55 MCG/ACT Triamcinolone Acetonide 5 5 MCG/ACT 03/03/2020 12:00:00 AM EDT 1.0 {spray_in_each_nostril} leon pended Triamcinolone Acetonide 55 MCG/ACT eCW1 ([facility]) Triamcinolone Acetonide 55 MCG/ACT Triamcinolone Acetonide 5 5 MCG/ACT 03/03/2020 12:00:00 AM EDT 1.0 {spray_in_each_nostril} leon pended Triamcinolone Acetonide 55 MCG/ACT eCW1 ([facility]) Fexofenadine hydrochloride 180 MG Oral Tablet Fexofena dine HCl 180 MG Fexofenadine HCl 180 MG 03/03/2020 12:00:00 AM EDT 1.0 {tablet_as_nee ded} suspended Fexofenadine HCl 180 MG eCW1 ([facility]) Fexofenadine hydrochloride 180 MG Oral Tablet Fexofena dine HCl 180 MG Fexofenadine HCl 180 MG 03/03/2020 12:00:00 AM EDT 1.0 {tablet_as_nee ded} suspended Fexofenadine HCl 180 MG eCW1 ([facility]) Triamcinolone Acetonide 55 MCG/ACT Triamcinolone Acetonide 5 5 MCG/ACT 03/03/2020 12:00:00 AM EDT 1.0 {spray_in_each_nostril} leon pended Triamcinolone Acetonide 55 MCG/ACT eCW1 ([facility]) Ibuprofen 800 MG Oral Tablet Ibuprofen 800 MG 03/03/2020 12:00:00 AM E DT suspended Ibuprofen 800 MG eCW1 ([facility]) Triamcinolone Acetonide 55 MCG/ACT Triamcinolone Acetonide 5 5 MCG/ACT 03/03/2020 12:00:00 AM EDT 1.0 {spray_in_each_nostril} leon pended Triamcinolone Acetonide 55 MCG/ACT eCW1 ([facility]) Ibuprofen 800 MG Oral Tablet Ibuprofen 800 MG 03/03/2020 12:00:00 AM E DT suspended Ibuprofen 800 MG eCW1 ([facility]) Triamcinolone Acetonide 55 MCG/ACT Triamcinolone Acetonide 5 5 MCG/ACT 03/03/2020 12:00:00 AM EDT active 1 spray in each nostril eCW1 ([facility]) Triamcinolone Acetonide 55 MCG/ACT Triamcinolone Acetonide 5 5 MCG/ACT 03/03/2020 12:00:00 AM EDT 1.0 {spray_in_each_nostril} [place] Triamcinolone Acetonide 55 MCG/ACT eCW1 ([facility]) Fexofenadine hydrochloride 180 MG Oral Tablet Fexofena dine HCl 180 MG Fexofenadine HCl 180 MG 03/03/2020 12:00:00 AM EDT 1.0 {tablet_as_nee ded} active Fexofenadine HCl 180 MG eCW1 ([facility]) Fexofenadine hydrochloride 180 MG Oral Tablet Fexofena dine HCl 180 MG Fexofenadine HCl 180 MG 03/03/2020 12:00:00 AM EDT 1.0 {tablet_as_nee ded} suspended Fexofenadine HCl 180 MG eCW1 ([facility]) Ibuprofen 800 MG Oral Tablet Ibuprofen 800 MG 03/03/2020 12:00:00 AM E DT active Ibuprofen 800 MG eCW1 ([facility]) Fexofenadine hydrochloride 180 MG Oral Tablet Fexofena dine HCl 180 MG Fexofenadine HCl 180 MG 03/03/2020 12:00:00 AM EDT 1.0 {tablet_as_nee ded} active Fexofenadine HCl 180 MG eCW1 ([facility]) Fexofenadine hydrochloride 180 MG Oral Tablet Fexofena dine HCl 180 MG Fexofenadine HCl 180 MG 03/03/2020 12:00:00 AM EDT 1.0 {tablet_as_nee ded} suspended Fexofenadine HCl 180 MG eCW1 ([facility]) Ibuprofen 800 MG Oral Tablet Ibuprofen 800 MG 03/03/2020 12:00:00 AM E DT active 1 tablet with food or mil k as needed eCW1 ([facility]) Ibuprofen 800 MG Oral Tablet Ibuprofen 800 MG 03/03/2020 12:00:00 AM E DT active Ibuprofen 800 MG eCW1 ([facility]) Fexofenadine hydrochloride 180 MG Oral Tablet Fexofena dine HCl 180 MG Fexofenadine HCl 180 MG 03/03/2020 12:00:00 AM EDT 1.0 {tablet_as_nee ded} suspended Fexofenadine HCl 180 MG eCW1 ([facility]) Triamcinolone Acetonide 55 MCG/ACT Triamcinolone Acetonide 5 5 MCG/ACT 03/03/2020 12:00:00 AM EDT 1.0 {spray_in_each_nostril} leon pended Triamcinolone Acetonide 55 MCG/ACT eCW1 ([facility]) Ibuprofen 800 MG Oral Tablet Ibuprofen 800 MG 03/03/2020 12:00:00 AM E DT suspended Ibuprofen 800 MG eCW1 ([facility]) Ibuprofen 800 MG Oral Tablet Ibuprofen 800 MG 03/03/2020 12:00:00 AM E DT suspended Ibuprofen 800 MG eCW1 ([facility]) Fexofenadine hydrochloride 180 MG Oral Tablet Fexofena dine HCl 180 MG Fexofenadine HCl 180 MG 03/03/2020 12:00:00 AM EDT 1.0 {tablet_as_nee ded} suspended Fexofenadine HCl 180 MG eCW1 ([facility]) Ibuprofen 800 MG Oral Tablet Ibuprofen 800 MG 03/03/2020 12:00:00 AM E DT suspended Ibuprofen 800 MG eCW1 ([facility]) Triamcinolone Acetonide 55 MCG/ACT Triamcinolone Acetonide 5 5 MCG/ACT 03/03/2020 12:00:00 AM EDT 1.0 {spray_in_each_nostril} [place] Triamcinolone Acetonide 55 MCG/ACT eCW1 ([facility]) Triamcinolone Acetonide 55 MCG/ACT Triamcinolone Acetonide 5 5 MCG/ACT 03/03/2020 12:00:00 AM EDT 1.0 {spray_in_each_nostril} [place] Triamcinolone Acetonide 55 MCG/ACT eCW1 ([facility]) Fexofenadine hydrochloride 180 MG Oral Tablet Fexofena dine HCl 180 MG Fexofenadine HCl 180 MG 03/03/2020 12:00:00 AM EDT 1.0 {tablet_as_nee ded} suspended Fexofenadine HCl 180 MG eCW1 ([facility]) Triamcinolone Acetonide 55 MCG/ACT Triamcinolone Acetonide 5 5 MCG/ACT 03/03/2020 12:00:00 AM EDT 1.0 {spray_in_each_nostril} leon pended Triamcinolone Acetonide 55 MCG/ACT eCW1 ([facility]) Fexofenadine hydrochloride 180 MG Oral Tablet Fexofena dine HCl 180 MG Fexofenadine HCl 180 MG 03/03/2020 12:00:00 AM EDT 1.0 {tablet_as_nee ded} suspended Fexofenadine HCl 180 MG eCW1 ([facility]) Fexofenadine hydrochloride 180 MG Oral Tablet Fexofena dine HCl 180 MG Fexofenadine HCl 180 MG 03/03/2020 12:00:00 AM EDT 1.0 {tablet_as_nee ded} suspended Fexofenadine HCl 180 MG eCW1 ([facility]) Triamcinolone Acetonide 55 MCG/ACT Triamcinolone Acetonide 5 5 MCG/ACT 03/03/2020 12:00:00 AM EDT 1.0 {spray_in_each_nostril} leon pended Triamcinolone Acetonide 55 MCG/ACT eCW1 ([facility]) Triamcinolone Acetonide 55 MCG/ACT Triamcinolone Acetonide 5 5 MCG/ACT 03/03/2020 12:00:00 AM EDT 1.0 {spray_in_each_nostril} [place] Triamcinolone Acetonide 55 MCG/ACT eCW1 ([facility]) Triamcinolone Acetonide 55 MCG/ACT Triamcinolone Acetonide 5 5 MCG/ACT 03/03/2020 12:00:00 AM EDT 1.0 {spray_in_each_nostril} leon pended Triamcinolone Acetonide 55 MCG/ACT eCW1 ([facility]) Ibuprofen 800 MG Oral Tablet Ibuprofen 800 MG 03/03/2020 12:00:00 AM E DT suspended Ibuprofen 800 MG eCW1 ([facility]) Ibuprofen 800 MG Oral Tablet Ibuprofen 800 MG 03/03/2020 12:00:00 AM E DT suspended Ibuprofen 800 MG eCW1 ([facility]) Fexofenadine hydrochloride 180 MG Oral Tablet Fexofena dine HCl 180 MG Fexofenadine HCl 180 MG 03/03/2020 12:00:00 AM EDT 1.0 {tablet_as_nee ded} suspended Fexofenadine HCl 180 MG eCW1 ([facility]) Triamcinolone Acetonide 55 MCG/ACT Triamcinolone Acetonide 5 5 MCG/ACT 03/03/2020 12:00:00 AM EDT 1.0 {spray_in_each_nostril} leon pended Triamcinolone Acetonide 55 MCG/ACT eCW1 ([facility]) Ibuprofen 800 MG Oral Tablet Ibuprofen 800 MG 03/03/2020 12:00:00 AM E DT suspended Ibuprofen 800 MG eCW1 ([facility]) Ibuprofen 800 MG Oral Tablet Ibuprofen 800 MG 03/03/2020 12:00:00 AM E DT suspended Ibuprofen 800 MG eCW1 ([facility]) Ibuprofen 800 MG Oral Tablet Ibuprofen 800 MG 03/03/2020 12:00:00 AM E DT suspended Ibuprofen 800 MG eCW1 ([facility]) Ibuprofen 800 MG Oral Tablet Ibuprofen 800 MG 03/03/2020 12:00:00 AM E DT active Ibuprofen 800 MG eCW1 ([facility]) Ibuprofen 800 MG Oral Tablet Ibuprofen 800 MG 03/03/2020 12:00:00 AM E DT suspended Ibuprofen 800 MG eCW1 ([facility]) Triamcinolone Acetonide 55 MCG/ACT Triamcinolone Acetonide 5 5 MCG/ACT 03/03/2020 12:00:00 AM EDT 1.0 {spray_in_each_nostril} leon pended Triamcinolone Acetonide 55 MCG/ACT eCW1 ([facility]) Ibuprofen 800 MG Oral Tablet Ibuprofen 800 MG 03/03/2020 12:00:00 AM E DT active Ibuprofen 800 MG eCW1 ([facility]) Fexofenadine hydrochloride 180 MG Oral Tablet Fexofena dine HCl 180 MG Fexofenadine HCl 180 MG 03/03/2020 12:00:00 AM EDT 1.0 {tablet_as_nee ded} active Fexofenadine HCl 180 MG eCW1 ([facility]) Fexofenadine hydrochloride 180 MG Oral Tablet Fexofena dine HCl 180 MG Fexofenadine HCl 180 MG 03/03/2020 12:00:00 AM EDT 1.0 {tablet_as_nee ded} suspended Fexofenadine HCl 180 MG eCW1 ([facility]) Ibuprofen 800 MG Oral Tablet Ibuprofen 800 MG 03/03/2020 12:00:00 AM E DT suspended Ibuprofen 800 MG eCW1 ([facility]) Triamcinolone Acetonide 55 MCG/ACT Triamcinolone Acetonide 5 5 MCG/ACT 03/03/2020 12:00:00 AM EDT 1.0 {spray_in_each_nostril} [place] Triamcinolone Acetonide 55 MCG/ACT eCW1 ([facility]) Triamcinolone Acetonide 55 MCG/ACT Triamcinolone Acetonide 5 5 MCG/ACT 03/03/2020 12:00:00 AM EDT 1.0 {spray_in_each_nostril} [place] Triamcinolone Acetonide 55 MCG/ACT eCW1 ([facility]) Fexofenadine hydrochloride 180 MG Oral Tablet Fexofena dine HCl 180 MG Fexofenadine HCl 180 MG 03/03/2020 12:00:00 AM EDT 1.0 {tablet_as_nee ded} suspended Fexofenadine HCl 180 MG eCW1 ([facility]) Triamcinolone Acetonide 55 MCG/ACT Triamcinolone Acetonide 5 5 MCG/ACT 03/03/2020 12:00:00 AM EDT 1.0 {spray_in_each_nostril} leon pended Triamcinolone Acetonide 55 MCG/ACT eCW1 ([facility]) Ibuprofen 800 MG Oral Tablet Ibuprofen 800 MG 03/03/2020 12:00:00 AM E DT active Ibuprofen 800 MG eCW1 ([facility]) Triamcinolone Acetonide 55 MCG/ACT Triamcinolone Acetonide 5 5 MCG/ACT 03/03/2020 12:00:00 AM EDT 1.0 {spray_in_each_nostril} leon pended Triamcinolone Acetonide 55 MCG/ACT eCW1 ([facility]) Ibuprofen 800 MG Oral Tablet Ibuprofen 800 MG 03/03/2020 12:00:00 AM E DT suspended Ibuprofen 800 MG eCW1 ([facility]) Ibuprofen 800 MG Oral Tablet Ibuprofen 800 MG 03/03/2020 12:00:00 AM E DT suspended Ibuprofen 800 MG eCW1 ([facility]) Ibuprofen 800 MG Oral Tablet Ibuprofen 800 MG 03/03/2020 12:00:00 AM E DT suspended Ibuprofen 800 MG eCW1 ([facility]) Ibuprofen 800 MG Oral Tablet Ibuprofen 800 MG 03/03/2020 12:00:00 AM E DT suspended Ibuprofen 800 MG eCW1 ([facility]) Fexofenadine hydrochloride 180 MG Oral Tablet Fexofena dine HCl 180 MG Fexofenadine HCl 180 MG 03/03/2020 12:00:00 AM EDT 1.0 {tablet_as_nee ded} suspended Fexofenadine HCl 180 MG eCW1 ([facility]) Methotrexate 2.5 MG Oral Tablet Methotrexate 2.5 MG Oral Tab let 02/25/2020 12:00:00 AM EDT 20 mg Oral aborted Seropositive rhe umatoid arthritis Take 8 tablets by mouth every 7 (seven) days [facility] Seropositive rheumatoid arthritis Folic Acid 1 MG Oral Tablet Folic Acid 1 MG Oral Table t (FOLVITE) Folic Acid 1 MG Oral Tablet (FOLVITE) 02/25/2020 12:00:00 AM EDT 1 mg Oral active Encounter for methotrexate monitoring Take 1 tablet by mouth daily [facility] Encounter for methotrexate monitoring Cheratussin AC 100-10 MG/5ML UNK 02/02/2020 12:00:00 AM EDT active 5 ml eCW1 ([facility]) Cheratussin AC 100-10 MG/5ML UNK 02/02/2020 12:00:00 AM EDT active 5 ml eCW1 ([facility]) NasoNeb Nebulizer Replacement - NasoNeb Nebulizer Replacemen t - 01/27/2020 12:00:00 AM EDT active NasoNeb Nebulizer Replacement - eCW1 ([facility]) NasoNeb Nebulizer Replacement - NasoNeb Nebulizer Replacemen t - 01/27/2020 12:00:00 AM EDT active NasoNeb Nebulizer Replacement - eCW1 ([facility]) NasoNeb Nebulizer Replacement - NasoNeb Nebulizer Replacemen t - 01/27/2020 12:00:00 AM EDT active NasoNeb Nebulizer Replacement - eCW1 ([facility]) Flonase Sensimist 27.5 MCG/SPRAY Flonase Sensimist 27.5 MCG/ SPRAY 01/27/2020 12:00:00 AM EDT 1.0 {spray_in_each_nostril} susp ended Flonase Sensimist 27.5 MCG/SPRAY eCW1 ([facility]) Alcohol Swabs - Alcohol Swabs - 01/27/2020 12:00:00 AM EDT active Alcohol Swabs - eCW1 ([facility]) Alcohol Swabs - Alcohol Swabs - 01/27/2020 12:00:00 AM EDT active Alcohol Swabs - eCW1 ([facility]) Alcohol Swabs - Alcohol Swabs - 01/27/2020 12:00:00 AM EDT active Alcohol Swabs - eCW1 ([facility]) Flonase Sensimist 27.5 MCG/SPRAY Flonase Sensimist 27.5 MCG/ SPRAY 01/27/2020 12:00:00 AM EDT active 1 spray in each nostril eCW1 ([facility]) NasoNeb Nebulizer Replacement - NasoNeb Nebulizer Replacemen t - 01/27/2020 12:00:00 AM EDT active NasoNeb Nebulizer Replacement - eCW1 ([facility]) Nebulizer Air Tube/Plugs - Nebulizer Air Tube/Plugs - 2019 12:00:00 AM EDT active Nebulizer Air Tub e/Plugs - eCW1 ([facility]) NasoNeb Nebulizer Replacement - NasoNeb Nebulizer Replacemen t - 01/27/2020 12:00:00 AM EDT active as direc imelda eCW1 ([facility]) Alcohol Swabs - Alcohol Swabs - 01/27/2020 12:00:00 AM EDT active Alcohol Swabs - eCW1 ([facility]) Alcohol Swabs - Alcohol Swabs - 01/27/2020 12:00:00 AM EDT active Alcohol Swabs - eCW1 ([facility]) Nebulizer Air Tube/Plugs - Nebulizer Air Tube/Plugs - 2019 12:00:00 AM EDT active Nebulizer Air Tub e/Plugs - eCW1 ([facility]) NasoNeb Nebulizer Replacement - NasoNeb Nebulizer Replacemen t - 01/27/2020 12:00:00 AM EDT active NasoNeb Nebulizer Replacement - eCW1 ([facility]) Flonase Sensimist 27.5 MCG/SPRAY Flonase Sensimist 27.5 MCG/ SPRAY 01/27/2020 12:00:00 AM EDT 1.0 {spray_in_each_nostril} susp ended Flonase Sensimist 27.5 MCG/SPRAY eCW1 ([facility]) NasoNeb Nebulizer Replacement - NasoNeb Nebulizer Replacemen t - 01/27/2020 12:00:00 AM EDT active NasoNeb Nebulizer Replacement - eCW1 ([facility]) Nebulizer Air Tube/Plugs - Nebulizer Air Tube/Plugs - 2019 12:00:00 AM EDT active Nebulizer Air Tub e/Plugs - eCW1 ([facility]) NasoNeb Nebulizer Replacement - NasoNeb Nebulizer Replacemen t - 01/27/2020 12:00:00 AM EDT active NasoNeb Nebulizer Replacement - eCW1 ([facility]) Flonase Sensimist 27.5 MCG/SPRAY Flonase Sensimist 27.5 MCG/ SPRAY 01/27/2020 12:00:00 AM EDT 1.0 {spray_in_each_nostril} susp ended Flonase Sensimist 27.5 MCG/SPRAY eCW1 ([facility]) Alcohol Swabs - Alcohol Swabs - 01/27/2020 12:00:00 AM EDT active Alcohol Swabs - eCW1 ([facility]) Flonase Sensimist 27.5 MCG/SPRAY Flonase Sensimist 27.5 MCG/ SPRAY 01/27/2020 12:00:00 AM EDT 1.0 {spray_in_each_nostril} susp ended Flonase Sensimist 27.5 MCG/SPRAY eCW1 ([facility]) NasoNeb Nebulizer Replacement - NasoNeb Nebulizer Replacemen t - 01/27/2020 12:00:00 AM EDT active NasoNeb Nebulizer Replacement - eCW1 ([facility]) Alcohol Swabs - Alcohol Swabs - 01/27/2020 12:00:00 AM EDT active Alcohol Swabs - eCW1 ([facility]) Nebulizer Air Tube/Plugs - Nebulizer Air Tube/Plugs - 2019 12:00:00 AM EDT active Nebulizer Air Tub e/Plugs - eCW1 ([facility]) Nebulizer Air Tube/Plugs - Nebulizer Air Tube/Plugs - 2019 12:00:00 AM EDT active Nebulizer Air Tub e/Plugs - eCW1 ([facility]) NasoNeb Nebulizer Replacement - NasoNeb Nebulizer Replacemen t - 01/27/2020 12:00:00 AM EDT active NasoNeb Nebulizer Replacement - eCW1 ([facility]) Nebulizer Air Tube/Plugs - Nebulizer Air Tube/Plugs - 2019 12:00:00 AM EDT active Nebulizer Air Tub e/Plugs - eCW1 ([facility]) Nebulizer Air Tube/Plugs - Nebulizer Air Tube/Plugs - 2019 12:00:00 AM EDT active Nebulizer Air Tub e/Plugs - eCW1 ([facility]) Nebulizer Air Tube/Plugs - Nebulizer Air Tube/Plugs - 2019 12:00:00 AM EDT active Nebulizer Air Tub e/Plugs - eCW1 ([facility]) Alcohol Swabs - Alcohol Swabs - 01/27/2020 12:00:00 AM EDT active Alcohol Swabs - eCW1 ([facility]) Flonase Sensimist 27.5 MCG/SPRAY Flonase Sensimist 27.5 MCG/ SPRAY 01/27/2020 12:00:00 AM EDT 1.0 {spray_in_each_nostril} susp ended Flonase Sensimist 27.5 MCG/SPRAY eCW1 ([facility]) NasoNeb Nebulizer Replacement - NasoNeb Nebulizer Replacemen t - 01/27/2020 12:00:00 AM EDT active NasoNeb Nebulizer Replacement - eCW1 ([facility]) Nebulizer Air Tube/Plugs - Nebulizer Air Tube/Plugs - 2019 12:00:00 AM EDT active Nebulizer Air Tub e/Plugs - eCW1 ([facility]) Nebulizer Air Tube/Plugs - Nebulizer Air Tube/Plugs - 2019 12:00:00 AM EDT active Nebulizer Air Tub e/Plugs - eCW1 ([facility]) Flonase Sensimist 27.5 MCG/SPRAY Flonase Sensimist 27.5 MCG/ SPRAY 01/27/2020 12:00:00 AM EDT 1.0 {spray_in_each_nostril} susp ended Flonase Sensimist 27.5 MCG/SPRAY eCW1 ([facility]) Alcohol Swabs - Alcohol Swabs - 01/27/2020 12:00:00 AM EDT active Alcohol Swabs - eCW1 ([facility]) Flonase Sensimist 27.5 MCG/SPRAY Flonase Sensimist 27.5 MCG/ SPRAY 01/27/2020 12:00:00 AM EDT 1.0 {spray_in_each_nostril} susp ended Flonase Sensimist 27.5 MCG/SPRAY eCW1 ([facility]) Alcohol Swabs - Alcohol Swabs - 01/27/2020 12:00:00 AM EDT active Alcohol Swabs - eCW1 ([facility]) Flonase Sensimist 27.5 MCG/SPRAY Flonase Sensimist 27.5 MCG/ SPRAY 01/27/2020 12:00:00 AM EDT 1.0 {spray_in_each_nostril} susp ended Flonase Sensimist 27.5 MCG/SPRAY eCW1 ([facility]) Alcohol Swabs - Alcohol Swabs - 01/27/2020 12:00:00 AM EDT active Alcohol Swabs - eCW1 ([facility]) Alcohol Swabs - Alcohol Swabs - 01/27/2020 12:00:00 AM EDT active Alcohol Swabs - eCW1 ([facility]) Nebulizer Air Tube/Plugs - Nebulizer Air Tube/Plugs - 2019 12:00:00 AM EDT active Nebulizer Air Tub e/Plugs - eCW1 ([facility]) NasoNeb Nebulizer Replacement - NasoNeb Nebulizer Replacemen t - 01/27/2020 12:00:00 AM EDT active NasoNeb Nebulizer Replacement - eCW1 ([facility]) Flonase Sensimist 27.5 MCG/SPRAY Flonase Sensimist 27.5 MCG/ SPRAY 01/27/2020 12:00:00 AM EDT 1.0 {spray_in_each_nostril} susp ended Flonase Sensimist 27.5 MCG/SPRAY eCW1 ([facility]) Flonase Sensimist 27.5 MCG/SPRAY Flonase Sensimist 27.5 MCG/ SPRAY 01/27/2020 12:00:00 AM EDT 1.0 {spray_in_each_nostril} susp ended Flonase Sensimist 27.5 MCG/SPRAY eCW1 ([facility]) Flonase Sensimist 27.5 MCG/SPRAY Flonase Sensimist 27.5 MCG/ SPRAY 01/27/2020 12:00:00 AM EDT 1.0 {spray_in_each_nostril} susp ended Flonase Sensimist 27.5 MCG/SPRAY eCW1 ([facility]) NasoNeb Nebulizer Replacement - NasoNeb Nebulizer Replacemen t - 01/27/2020 12:00:00 AM EDT active NasoNeb Nebulizer Replacement - eCW1 ([facility]) Nebulizer Air Tube/Plugs - Nebulizer Air Tube/Plugs - 2019 12:00:00 AM EDT active Nebulizer Air Tub e/Plugs - eCW1 ([facility]) Alcohol Swabs - Alcohol Swabs - 01/27/2020 12:00:00 AM EDT active Alcohol Swabs - eCW1 ([facility]) NasoNeb Nebulizer Replacement - NasoNeb Nebulizer Replacemen t - 01/27/2020 12:00:00 AM EDT active NasoNeb Nebulizer Replacement - eCW1 ([facility]) NasoNeb Nebulizer Replacement - NasoNeb Nebulizer Replacemen t - 01/27/2020 12:00:00 AM EDT active NasoNeb Nebulizer Replacement - eCW1 ([facility]) Flonase Sensimist 27.5 MCG/SPRAY Flonase Sensimist 27.5 MCG/ SPRAY 01/27/2020 12:00:00 AM EDT 1.0 {spray_in_each_nostril} susp ended Flonase Sensimist 27.5 MCG/SPRAY eCW1 ([facility]) Nebulizer Air Tube/Plugs - Nebulizer Air Tube/Plugs - 2019 12:00:00 AM EDT active Nebulizer Air Tub e/Plugs - eCW1 ([facility] [facility] Nebulizer Air Tube/Plugs - Nebulizer Air Tube/Plugs - 2019 12:00:00 AM EDT active as directed eCW1 ([facility]) Flonase Sensimist 27.5 MCG/SPRAY Flonase Sensimist 27.5 MCG/ SPRAY 01/27/2020 12:00:00 AM EDT 1.0 {spray_in_each_nostril} susp ended Flonase Sensimist 27.5 MCG/SPRAY eCW1 ([facility]) Alcohol Swabs - Alcohol Swabs - 01/27/2020 12:00:00 AM EDT active Alcohol Swabs - eCW1 ([facility]) Nebulizer Air Tube/Plugs - Nebulizer Air Tube/Plugs - 2019 12:00:00 AM EDT active Nebulizer Air Tub e/Plugs - eCW1 ([facility]) Nebulizer Air Tube/Plugs - Nebulizer Air Tube/Plugs - 2019 12:00:00 AM EDT active Nebulizer Air Tub e/Plugs - eCW1 ([facility]) Flonase Sensimist 27.5 MCG/SPRAY Flonase Sensimist 27.5 MCG/ SPRAY 01/27/2020 12:00:00 AM EDT 1.0 {spray_in_each_nostril} susp ended Flonase Sensimist 27.5 MCG/SPRAY eCW1 ([facility]) NasoNeb Nebulizer Replacement - NasoNeb Nebulizer Replacemen t - 01/27/2020 12:00:00 AM EDT active NasoNeb Nebulizer Replacement - eCW1 ([facility]) Flonase Sensimist 27.5 MCG/SPRAY Flonase Sensimist 27.5 MCG/ SPRAY 01/27/2020 12:00:00 AM EDT 1.0 {spray_in_each_nostril} susp ended Flonase Sensimist 27.5 MCG/SPRAY eCW1 ([facility]) Nebulizer Air Tube/Plugs - Nebulizer Air Tube/Plugs - 2019 12:00:00 AM EDT active Nebulizer Air Tub e/Plugs - eCW1 ([facility]) NasoNeb Nebulizer Replacement - NasoNeb Nebulizer Replacemen t - 01/27/2020 12:00:00 AM EDT active NasoNeb Nebulizer Replacement - eCW1 ([facility]) Nebulizer Air Tube/Plugs - Nebulizer Air Tube/Plugs - 2019 12:00:00 AM EDT active Nebulizer Air Tub e/Plugs - eCW1 ([facility]) Flonase Sensimist 27.5 MCG/SPRAY Flonase Sensimist 27.5 MCG/ SPRAY 01/27/2020 12:00:00 AM EDT 1.0 {spray_in_each_nostril} susp ended Flonase Sensimist 27.5 MCG/SPRAY eCW1 ([facility]) NasoNeb Nebulizer Replacement - NasoNeb Nebulizer Replacemen t - 01/27/2020 12:00:00 AM EDT active NasoNeb Nebulizer Replacement - eCW1 ([facility]) Alcohol Swabs - Alcohol Swabs - 01/27/2020 12:00:00 AM EDT active Alcohol Swabs - eCW1 ([facility]) Flonase Sensimist 27.5 MCG/SPRAY Flonase Sensimist 27.5 MCG/ SPRAY 01/27/2020 12:00:00 AM EDT 1.0 {spray_in_each_nostril} susp ended Flonase Sensimist 27.5 MCG/SPRAY eCW1 ([facility]) NasoNeb Nebulizer Replacement - NasoNeb Nebulizer Replacemen t - 01/27/2020 12:00:00 AM EDT active NasoNeb Nebulizer Replacement - eCW1 ([facility]) RA Tussin Cough DM Sugar Free 100-10 MG/5ML RA Tussin Cough DM Sugar Free 100-10 MG/5ML 01/27/2020 12:00:00 AM EDT active 10 ml as needed eCW1 ([facility]) Flonase Sensimist 27.5 MCG/SPRAY Flonase Sensimist 27.5 MCG/ SPRAY 01/27/2020 12:00:00 AM EDT 1.0 {spray_in_each_nostril} susp ended Flonase Sensimist 27.5 MCG/SPRAY eCW1 ([facility]) Alcohol Swabs - Alcohol Swabs - 01/27/2020 12:00:00 AM EDT active Alcohol Swabs - eCW1 ([facility]) Flonase Sensimist 27.5 MCG/SPRAY Flonase Sensimist 27.5 MCG/ SPRAY 01/27/2020 12:00:00 AM EDT 1.0 {spray_in_each_nostril} susp ended Flonase Sensimist 27.5 MCG/SPRAY eCW1 ([facility]) NasoNeb Nebulizer Replacement - NasoNeb Nebulizer Replacemen t - 01/27/2020 12:00:00 AM EDT active NasoNeb Nebulizer Replacement - eCW1 ([facility]) Nebulizer Air Tube/Plugs - Nebulizer Air Tube/Plugs - 2019 12:00:00 AM EDT active Nebulizer Air Tub e/Plugs - eCW1 ([facility]) Flonase Sensimist 27.5 MCG/SPRAY Flonase Sensimist 27.5 MCG/ SPRAY 01/27/2020 12:00:00 AM EDT 1.0 {spray_in_each_nostril} susp ended Flonase Sensimist 27.5 MCG/SPRAY eCW1 ([facility]) Alcohol Swabs - Alcohol Swabs - 01/27/2020 12:00:00 AM EDT active Alcohol Swabs - eCW1 ([facility]) NasoNeb Nebulizer Replacement - NasoNeb Nebulizer Replacemen t - 01/27/2020 12:00:00 AM EDT active NasoNeb Nebulizer Replacement - eCW1 ([facility]) Alcohol Swabs - Alcohol Swabs - 01/27/2020 12:00:00 AM EDT active Alcohol Swabs - eCW1 ([facility]) NasoNeb Nebulizer Replacement - NasoNeb Nebulizer Replacemen t - 01/27/2020 12:00:00 AM EDT active NasoNeb Nebulizer Replacement - eCW1 ([facility]) Flonase Sensimist 27.5 MCG/SPRAY Flonase Sensimist 27.5 MCG/ SPRAY 01/27/2020 12:00:00 AM EDT 1.0 {spray_in_each_nostril} susp ended Flonase Sensimist 27.5 MCG/SPRAY eCW1 ([facility]) Alcohol Swabs - Alcohol Swabs - 01/27/2020 12:00:00 AM EDT active Alcohol Swabs - eCW1 ([facility]) Flonase Sensimist 27.5 MCG/SPRAY Flonase Sensimist 27.5 MCG/ SPRAY 01/27/2020 12:00:00 AM EDT 1.0 {spray_in_each_nostril} susp ended Flonase Sensimist 27.5 MCG/SPRAY eCW1 ([facility]) NasoNeb Nebulizer Replacement - NasoNeb Nebulizer Replacemen t - 01/27/2020 12:00:00 AM EDT active NasoNeb Nebulizer Replacement - eCW1 ([facility]) NasoNeb Nebulizer Replacement - NasoNeb Nebulizer Replacemen t - 01/27/2020 12:00:00 AM EDT active NasoNeb Nebulizer Replacement - eCW1 ([facility]) Nebulizer Air Tube/Plugs - Nebulizer Air Tube/Plugs - 2019 12:00:00 AM EDT active Nebulizer Air Tub e/Plugs - eCW1 ([facility]) NasoNeb Nebulizer Replacement - NasoNeb Nebulizer Replacemen t - 01/27/2020 12:00:00 AM EDT active NasoNeb Nebulizer Replacement - eCW1 ([facility]) RA Tussin Cough DM Sugar Free 100-10 MG/5ML RA Tussin Cough DM Sugar Free 100-10 MG/5ML 01/27/2020 12:00:00 AM EDT active 10 ml as needed eCW1 ([facility]) Alcohol Swabs - Alcohol Swabs - 01/27/2020 12:00:00 AM EDT active Alcohol Swabs - eCW1 ([facility]) Flonase Sensimist 27.5 MCG/SPRAY Flonase Sensimist 27.5 MCG/ SPRAY 01/27/2020 12:00:00 AM EDT 1.0 {spray_in_each_nostril} susp ended Flonase Sensimist 27.5 MCG/SPRAY eCW1 ([facility]) NasoNeb Nebulizer Replacement - NasoNeb Nebulizer Replacemen t - 01/27/2020 12:00:00 AM EDT active NasoNeb Nebulizer Replacement - eCW1 ([facility]) NasoNeb Nebulizer Replacement - NasoNeb Nebulizer Replacemen t - 01/27/2020 12:00:00 AM EDT active NasoNeb Nebulizer Replacement - eCW1 ([facility]) Alcohol Swabs - Alcohol Swabs - 01/27/2020 12:00:00 AM EDT active Alcohol Swabs - eCW1 ([facility]) Alcohol Swabs - Alcohol Swabs - 01/27/2020 12:00:00 AM EDT active Alcohol Swabs - eCW1 ([facility]) Alcohol Swabs - Alcohol Swabs - 01/27/2020 12:00:00 AM EDT active Alcohol Swabs - eCW1 ([facility]) NasoNeb Nebulizer Replacement - NasoNeb Nebulizer Replacemen t - 01/27/2020 12:00:00 AM EDT active NasoNeb Nebulizer Replacement - eCW1 ([facility]) Flonase Sensimist 27.5 MCG/SPRAY Flonase Sensimist 27.5 MCG/ SPRAY 01/27/2020 12:00:00 AM EDT 1.0 {spray_in_each_nostril} susp ended Flonase Sensimist 27.5 MCG/SPRAY eCW1 ([facility]) Alcohol Swabs - Alcohol Swabs - 01/27/2020 12:00:00 AM EDT active Alcohol Swabs - eCW1 ([facility]) Nebulizer Air Tube/Plugs - Nebulizer Air Tube/Plugs - 2019 12:00:00 AM EDT active Nebulizer Air Tub e/Plugs - eCW1 ([facility]) NasoNeb Nebulizer Replacement - NasoNeb Nebulizer Replacemen t - 01/27/2020 12:00:00 AM EDT active NasoNeb Nebulizer Replacement - eCW1 ([facility]) Nebulizer Air Tube/Plugs - Nebulizer Air Tube/Plugs - 2019 12:00:00 AM EDT active Nebulizer Air Tub e/Plugs - eCW1 ([facility]) Nebulizer Air Tube/Plugs - Nebulizer Air Tube/Plugs - 2019 12:00:00 AM EDT active Nebulizer Air Tub e/Plugs - eCW1 ([facility]) Alcohol Swabs - Alcohol Swabs - 01/27/2020 12:00:00 AM EDT active Alcohol Swabs - eCW1 ([facility]) Nebulizer Air Tube/Plugs - Nebulizer Air Tube/Plugs - 2019 12:00:00 AM EDT active Nebulizer Air Tub e/Plugs - eCW1 ([facility]) Alcohol Swabs - Alcohol Swabs - 01/27/2020 12:00:00 AM EDT active Alcohol Swabs - eCW1 ([facility]) Flonase Sensimist 27.5 MCG/SPRAY Flonase Sensimist 27.5 MCG/ SPRAY 01/27/2020 12:00:00 AM EDT 1.0 {spray_in_each_nostril} susp ended Flonase Sensimist 27.5 MCG/SPRAY eCW1 ([facility]) Nebulizer Air Tube/Plugs - Nebulizer Air Tube/Plugs - 2019 12:00:00 AM EDT active as directed eCW1 ([facility]) Flonase Sensimist 27.5 MCG/SPRAY Flonase Sensimist 27.5 MCG/ SPRAY 01/27/2020 12:00:00 AM EDT 1.0 {spray_in_each_nostril} susp ended Flonase Sensimist 27.5 MCG/SPRAY eCW1 ([facility]) Alcohol Swabs - Alcohol Swabs - 01/27/2020 12:00:00 AM EDT active Alcohol Swabs - eCW1 ([facility]) Alcohol Swabs - Alcohol Swabs - 01/27/2020 12:00:00 AM EDT active Alcohol Swabs - eCW1 ([facility]) Flonase Sensimist 27.5 MCG/SPRAY Flonase Sensimist 27.5 MCG/ SPRAY 01/27/2020 12:00:00 AM EDT 1.0 {spray_in_each_nostril} susp ended Flonase Sensimist 27.5 MCG/SPRAY eCW1 ([facility]) Nebulizer Air Tube/Plugs - Nebulizer Air Tube/Plugs - 2019 12:00:00 AM EDT active Nebulizer Air Tub e/Plugs - eCW1 ([facility]) Nebulizer Air Tube/Plugs - Nebulizer Air Tube/Plugs - 2019 12:00:00 AM EDT active Nebulizer Air Tub e/Plugs - eCW1 ([facility]) Nebulizer Air Tube/Plugs - Nebulizer Air Tube/Plugs - 2019 12:00:00 AM EDT active Nebulizer Air Tub e/Plugs - eCW1 ([facility]) Flonase Sensimist 27.5 MCG/SPRAY Flonase Sensimist 27.5 MCG/ SPRAY 01/27/2020 12:00:00 AM EDT 1.0 {spray_in_each_nostril} susp ended Flonase Sensimist 27.5 MCG/SPRAY eCW1 ([facility]) Nebulizer Air Tube/Plugs - Nebulizer Air Tube/Plugs - 2019 12:00:00 AM EDT active Nebulizer Air Tub e/Plugs - eCW1 ([facility]) NasoNeb Nebulizer Replacement - NasoNeb Nebulizer Replacemen t - 01/27/2020 12:00:00 AM EDT active NasoNeb Nebulizer Replacement - eCW1 ([facility]) Flonase Sensimist 27.5 MCG/SPRAY Flonase Sensimist 27.5 MCG/ SPRAY 01/27/2020 12:00:00 AM EDT 1.0 {spray_in_each_nostril} susp ended Flonase Sensimist 27.5 MCG/SPRAY eCW1 ([facility]) Nebulizer Air Tube/Plugs - Nebulizer Air Tube/Plugs - 2019 12:00:00 AM EDT active Nebulizer Air Tub e/Plugs - eCW1 ([facility]) Nebulizer Air Tube/Plugs - Nebulizer Air Tube/Plugs - 2019 12:00:00 AM EDT active Nebulizer Air Tub e/Plugs - eCW1 ([facility]) NasoNeb Nebulizer Replacement - NasoNeb Nebulizer Replacemen t - 01/27/2020 12:00:00 AM EDT active NasoNeb Nebulizer Replacement - eCW1 ([facility]) NasoNeb Nebulizer Replacement - NasoNeb Nebulizer Replacemen t - 01/27/2020 12:00:00 AM EDT active NasoNeb Nebulizer Replacement - eCW1 ([facility]) Alcohol Swabs - Alcohol Swabs - 01/27/2020 12:00:00 AM EDT active Alcohol Swabs - eCW1 ([facility]) Flonase Sensimist 27.5 MCG/SPRAY Flonase Sensimist 27.5 MCG/ SPRAY 01/27/2020 12:00:00 AM EDT 1.0 {spray_in_each_nostril} susp ended Flonase Sensimist 27.5 MCG/SPRAY eCW1 ([facility]) Nebulizer Air Tube/Plugs - Nebulizer Air Tube/Plugs - 2019 12:00:00 AM EDT active Nebulizer Air Tub e/Plugs - eCW1 ([facility]) Nebulizer Air Tube/Plugs - Nebulizer Air Tube/Plugs - 2019 12:00:00 AM EDT active Nebulizer Air Tub e/Plugs - eCW1 ([facility]) Nebulizer Air Tube/Plugs - Nebulizer Air Tube/Plugs - 2019 12:00:00 AM EDT active Nebulizer Air Tub e/Plugs - eCW1 ([facility]) Flonase Sensimist 27.5 MCG/SPRAY Flonase Sensimist 27.5 MCG/ SPRAY 01/27/2020 12:00:00 AM EDT 1.0 {spray_in_each_nostril} susp ended Flonase Sensimist 27.5 MCG/SPRAY eCW1 ([facility]) Alcohol Swabs - Alcohol Swabs - 01/27/2020 12:00:00 AM EDT active Alcohol Swabs - eCW1 ([facility]) Flonase Sensimist 27.5 MCG/SPRAY Flonase Sensimist 27.5 MCG/ SPRAY 01/27/2020 12:00:00 AM EDT 1.0 {spray_in_each_nostril} susp ended Flonase Sensimist 27.5 MCG/SPRAY eCW1 ([facility]) NasoNeb Nebulizer Replacement - NasoNeb Nebulizer Replacemen t - 01/27/2020 12:00:00 AM EDT active NasoNeb Nebulizer Replacement - eCW1 ([facility]) Flonase Sensimist 27.5 MCG/SPRAY Flonase Sensimist 27.5 MCG/ SPRAY 01/27/2020 12:00:00 AM EDT active 1 spray in each nostril eCW1 ([facility]) NasoNeb Nebulizer Replacement - NasoNeb Nebulizer Replacemen t - 01/27/2020 12:00:00 AM EDT active NasoNeb Nebulizer Replacement - eCW1 ([facility]) NasoNeb Nebulizer Replacement - NasoNeb Nebulizer Replacemen t - 01/27/2020 12:00:00 AM EDT active as direc imelda eCW1 ([facility]) Alcohol Swabs - Alcohol Swabs - 01/27/2020 12:00:00 AM EDT active Alcohol Swabs - eCW1 ([facility]) Alcohol Swabs - Alcohol Swabs - 01/27/2020 12:00:00 AM EDT active as directed eCW1 ([facility]) Nebulizer Air Tube/Plugs - Nebulizer Air Tube/Plugs - 2019 12:00:00 AM EDT active Nebulizer Air Tub e/Plugs - eCW1 ([facility]) NasoNeb Nebulizer Replacement - NasoNeb Nebulizer Replacemen t - 01/27/2020 12:00:00 AM EDT active NasoNeb Nebulizer Replacement - eCW1 ([facility]) Nebulizer Air Tube/Plugs - Nebulizer Air Tube/Plugs - 2019 12:00:00 AM EDT active Nebulizer Air Tub e/Plugs - eCW1 ([facility]) Alcohol Swabs - Alcohol Swabs - 01/27/2020 12:00:00 AM EDT active Alcohol Swabs - eCW1 ([facility]) Alcohol Swabs - Alcohol Swabs - 01/27/2020 12:00:00 AM EDT active Alcohol Swabs - eCW1 ([facility]) Alcohol Swabs - Alcohol Swabs - 01/27/2020 12:00:00 AM EDT active Alcohol Swabs - eCW1 ([facility]) Flonase Sensimist 27.5 MCG/SPRAY Flonase Sensimist 27.5 MCG/ SPRAY 01/27/2020 12:00:00 AM EDT 1.0 {spray_in_each_nostril} susp ended Flonase Sensimist 27.5 MCG/SPRAY eCW1 ([facility]) NasoNeb Nebulizer Replacement - NasoNeb Nebulizer Replacemen t - 01/27/2020 12:00:00 AM EDT active NasoNeb Nebulizer Replacement - eCW1 ([facility]) NasoNeb Nebulizer Replacement - NasoNeb Nebulizer Replacemen t - 01/27/2020 12:00:00 AM EDT active NasoNeb Nebulizer Replacement - eCW1 ([facility]) Flonase Sensimist 27.5 MCG/SPRAY Flonase Sensimist 27.5 MCG/ SPRAY 01/27/2020 12:00:00 AM EDT 1.0 {spray_in_each_nostril} susp ended Flonase Sensimist 27.5 MCG/SPRAY eCW1 ([facility]) Flonase Sensimist 27.5 MCG/SPRAY Flonase Sensimist 27.5 MCG/ SPRAY 01/27/2020 12:00:00 AM EDT 1.0 {spray_in_each_nostril} susp ended Flonase Sensimist 27.5 MCG/SPRAY eCW1 ([facility]) Nebulizer Air Tube/Plugs - Nebulizer Air Tube/Plugs - 2019 12:00:00 AM EDT active Nebulizer Air Tub e/Plugs - eCW1 ([facility]) Flonase Sensimist 27.5 MCG/SPRAY Flonase Sensimist 27.5 MCG/ SPRAY 01/27/2020 12:00:00 AM EDT 1.0 {spray_in_each_nostril} susp ended Flonase Sensimist 27.5 MCG/SPRAY eCW1 ([facility]) Nebulizer Air Tube/Plugs - Nebulizer Air Tube/Plugs - 2019 12:00:00 AM EDT active Nebulizer Air Tub e/Plugs - eCW1 ([facility]) Alcohol Swabs - Alcohol Swabs - 01/27/2020 12:00:00 AM EDT active Alcohol Swabs - eCW1 ([facility]) Alcohol Swabs - Alcohol Swabs - 01/27/2020 12:00:00 AM EDT active as directed eCW1 ([facility]) Alcohol Swabs - Alcohol Swabs - 01/27/2020 12:00:00 AM EDT active Alcohol Swabs - eCW1 ([facility]) ConverginTouch Verio w/Device Kit [id number] 01/21/2020 12:00:00 AM EDT 1 {each} Does not apply aborted Type 2 diabetes mellitus with hyperglycemia, with long-term current use of insulin 1 each by Does not ap ply route daily DX E 11.65 [facility] Type 2 diabetes mellitus with hyperglyce doug, with long-term current use of insulin Insulin Glargine (2 Unit Dial) 300 UNIT/ ML Subcutaneous Solution Pen-injector (Toujeo Max SoloStar) [id number] 01/13/2020 12:00:00 AM EST aborted 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 MDD 102 units. DX: E11.65 [facility] Type 2 diabetes mellitus with hypoglycem ia unawareness Folic Acid 0.8 MG Oral Tablet Folic Acid 01/09/2020 12:00:00 AM EST ORAL active [facility] ([facility]) Sumatriptan 50 MG Oral Tablet [Imitrex] Imitrex 01/09/2020 12:00:0 0 AM EST ORAL active [facility] ([facility]) Insulin Lispro 100 UNT/ML Injectable Solution [Humalog] Shereen log 01/09/2020 12:00:00 AM EST active M EDENT ([facility]) gabapentin 300 MG Oral Capsule Gabapentin 01/09/2020 12:00:00 AM EST ORAL active [facility] ([facility]) Furosemide 40 MG Oral Tablet [Lasix] Lasix 01/09/2020 12:00:00 AM EST ORAL active [facility] ([facility]) Lidocaine Hydrochloride 0.05 MG/MG Transdermal Patch [Lidode rm] Lidoderm 01/09/2020 12:00:00 AM EST active [facility] ([facility]) Losartan Potassium 50 MG Oral Tablet Losartan Potassium 11/2019 12:00:00 AM EST ORAL active [facility] ([facility]) metaxalone 800 MG Oral Tablet Metaxalone 01/09/2020 12:00:00 AM EST ORAL completed [facility] ([facility]) 24 HR Metformin hydrochloride 750 MG Extended Release Oral Tablet Metformin HCL ER 01/09/2020 12:00:00 AM EST active [facility] ([facility]) buspirone hydrochloride 10 MG Oral Tablet Buspirone HCL 01/09/2020 12:00:00 AM EST ORAL active [facility] ([facility]) Rosuvastatin calcium 20 MG Oral Tablet Rosuvastatin Calcium 01/09/2020 12:00:00 AM EST ORAL active [facility] ([facility]) apixaban 5 MG Oral Tablet [Eliquis] Eliquis 01/09/2020 12:00:[address] ORAL completed [facility] ([facility]) Omeprazole 20 MG Delayed Release Oral Capsule Omeprazole 01/09/2020 12:00:00 AM EST ORAL active [facility] ([facility]) Methotrexate 2.5 MG Oral Tablet Methotrexate 01/09/2020 12:00:00 AM EST active [facility] ([facility]) Spironolactone 25 MG Oral Tablet Spironolactone 01/09/2020 12:00:00 A M EST ORAL active [facility] ([facility]) Toujeo Max Solostar Toujeo Max Solostar 01/09/2020 12:00:00 AM EST active [facility] tramadol hydrochloride 50 MG Oral Tablet Tramadol HCL 01/09/2020 12:00:00 AM EST ORAL completed [facility] ([facility]) Ergocalciferol 2000 UNT Oral Tablet Vitamin D2 01/09/2020 12:00:00 AM EST ORAL active [facility] ([facility]) Zolpidem tartrate 5 MG Oral Tablet Zolpidem Tartrate 01/09/2020 12:00:00 AM EST ORAL active [facility] ( [facility]) Cefuroxime 500 MG Oral Tablet Cefuroxime Axetil 500 MG Cefur oxime Axetil 500 MG 01/03/2020 12:00:00 AM EST suspended 1 tablet eCW1 ([facility]) Cefuroxime 500 MG Oral Tablet Cefuroxime Axetil 500 MG Cefur oxime Axetil 500 MG 01/03/2020 12:00:00 AM EST suspended 1 tablet eCW1 ([facility]) Cefuroxime 500 MG Oral Tablet Cefuroxime Axetil 500 MG Cefur oxime Axetil 500 MG 01/03/2020 12:00:00 AM EST active 1 tablet eCW1 ([facility]) 24 HR Oxybutynin chloride 5 MG Extended Release Oral Tablet Oxybutynin Chloride ER 5 MG Oxybutynin Chloride ER 5 MG 12/22/2019 12:00:00 AM EST 1.0 {tablet} active Oxybutynin Chloride ER 5 MG eCW1 ([facility]) 24 HR Oxybutynin chloride 5 MG Extended Release Oral Tablet Oxybutynin Chloride ER 5 MG Oxybutynin Chloride ER 5 MG 12/22/2019 12:00:00 AM EST 1.0 {tablet} active Oxybutynin Chloride ER 5 MG eCW1 ([facility]) 24 HR Oxybutynin chloride 5 MG Extended Release Oral Tablet Oxybutynin Chloride ER 5 MG Oxybutynin Chloride ER 5 MG 12/22/2019 12:00:00 AM EST 1.0 {tablet} active Oxybutynin Chloride ER 5 MG eCW1 ([facility]) 24 HR Oxybutynin chloride 5 MG Extended Release Oral Tablet Oxybutynin Chloride ER 5 MG Oxybutynin Chloride ER 5 MG 12/22/2019 12:00:00 AM EST 1.0 {tablet} active Oxybutynin Chloride ER 5 MG eCW1 ([facility]) 24 HR Oxybutynin chloride 5 MG Extended Release Oral Tablet Oxybutynin Chloride ER 5 MG Oxybutynin Chloride ER 5 MG 12/22/2019 12:00:00 AM EST 1.0 {tablet} active Oxybutynin Chloride ER 5 MG eCW1 ([facility]) 24 HR Oxybutynin chloride 5 MG Extended Release Oral Tablet Oxybutynin Chloride ER 5 MG Oxybutynin Chloride ER 5 MG 12/22/2019 12:00:00 AM EST active 1 tablet eCW1 ([facility]) 24 HR Oxybutynin chloride 5 MG Extended Release Oral Tablet Oxybutynin Chloride ER 5 MG Oxybutynin Chloride ER 5 MG 12/22/2019 12:00:00 AM EST 1.0 {tablet} active Oxybutynin Chloride ER 5 MG eCW1 ([facility]) 24 HR Oxybutynin chloride 5 MG Extended Release Oral Tablet Oxybutynin Chloride ER 5 MG Oxybutynin Chloride ER 5 MG 12/22/2019 12:00:00 AM EST active 1 tablet eCW1 ([facility]) 24 HR Oxybutynin chloride 5 MG Extended Release Oral Tablet Oxybutynin Chloride ER 5 MG Oxybutynin Chloride ER 5 MG 12/22/2019 12:00:00 AM EST 1.0 {tablet} active Oxybutynin Chloride ER 5 MG eCW1 ([facility]) 24 HR Oxybutynin chloride 5 MG Extended Release Oral Tablet Oxybutynin Chloride ER 5 MG Oxybutynin Chloride ER 5 MG 12/22/2019 12:00:00 AM EST 1.0 {tablet} active Oxybutynin Chloride ER 5 MG eCW1 ([facility]) 24 HR Oxybutynin chloride 5 MG Extended Release Oral Tablet Oxybutynin Chloride ER 5 MG Oxybutynin Chloride ER 5 MG 12/22/2019 12:00:00 AM EST 1.0 {tablet} active Oxybutynin Chloride ER 5 MG eCW1 ([facility]) 24 HR Oxybutynin chloride 5 MG Extended Release Oral Tablet Oxybutynin Chloride ER 5 MG Oxybutynin Chloride ER 5 MG 12/22/2019 12:00:00 AM EST active 1 tablet eCW1 ([facility]) 24 HR Oxybutynin chloride 5 MG Extended Release Oral Tablet Oxybutynin Chloride ER 5 MG Oxybutynin Chloride ER 5 MG 12/22/2019 12:00:00 AM EST 1.0 {tablet} active Oxybutynin Chloride ER 5 MG eCW1 ([facility]) 24 HR Oxybutynin chloride 5 MG Extended Release Oral Tablet Oxybutynin Chloride ER 5 MG Oxybutynin Chloride ER 5 MG 12/22/2019 12:00:00 AM EST 1.0 {tablet} active Oxybutynin Chloride ER 5 MG eCW1 ([facility]) 24 HR Oxybutynin chloride 5 MG Extended Release Oral Tablet Oxybutynin Chloride ER 5 MG Oxybutynin Chloride ER 5 MG 12/22/2019 12:00:00 AM EST 1.0 {tablet} active Oxybutynin Chloride ER 5 MG eCW1 ([facility]) 24 HR Oxybutynin chloride 5 MG Extended Release Oral Tablet Oxybutynin Chloride ER 5 MG Oxybutynin Chloride ER 5 MG 12/22/2019 12:00:00 AM EST 1.0 {tablet} active Oxybutynin Chloride ER 5 MG eCW1 ([facility]) 24 HR Oxybutynin chloride 5 MG Extended Release Oral Tablet Oxybutynin Chloride ER 5 MG Oxybutynin Chloride ER 5 MG 12/22/2019 12:00:00 AM EST 1.0 {tablet} active Oxybutynin Chloride ER 5 MG eCW1 ([facility]) 24 HR Oxybutynin chloride 5 MG Extended Release Oral Tablet Oxybutynin Chloride ER 5 MG Oxybutynin Chloride ER 5 MG 12/22/2019 12:00:00 AM EST 1.0 {tablet} active Oxybutynin Chloride ER 5 MG eCW1 ([facility]) 24 HR Oxybutynin chloride 5 MG Extended Release Oral Tablet Oxybutynin Chloride ER 5 MG Oxybutynin Chloride ER 5 MG 12/22/2019 12:00:00 AM EST 1.0 {tablet} active Oxybutynin Chloride ER 5 MG eCW1 ([facility]) 24 HR Oxybutynin chloride 5 MG Extended Release Oral Tablet Oxybutynin Chloride ER 5 MG Oxybutynin Chloride ER 5 MG 12/22/2019 12:00:00 AM EST 1.0 {tablet} active Oxybutynin Chloride ER 5 MG eCW1 ([facility]) 24 HR Oxybutynin chloride 5 MG Extended Release Oral Tablet Oxybutynin Chloride ER 5 MG Oxybutynin Chloride ER 5 MG 12/22/2019 12:00:00 AM EST 1.0 {tablet} active Oxybutynin Chloride ER 5 MG eCW1 ([facility]) 24 HR Oxybutynin chloride 5 MG Extended Release Oral Tablet Oxybutynin Chloride ER 5 MG Oxybutynin Chloride ER 5 MG 12/22/2019 12:00:00 AM EST 1.0 {tablet} active Oxybutynin Chloride ER 5 MG eCW1 ([facility]) 24 HR Oxybutynin chloride 5 MG Extended Release Oral Tablet Oxybutynin Chloride ER 5 MG Oxybutynin Chloride ER 5 MG 12/22/2019 12:00:00 AM EST 1.0 {tablet} active Oxybutynin Chloride ER 5 MG eCW1 ([facility]) 24 HR Oxybutynin chloride 5 MG Extended Release Oral Tablet Oxybutynin Chloride ER 5 MG Oxybutynin Chloride ER 5 MG 12/22/2019 12:00:00 AM EST 1.0 {tablet} active Oxybutynin Chloride ER 5 MG eCW1 ([facility]) 24 HR Oxybutynin chloride 5 MG Extended Release Oral Tablet Oxybutynin Chloride ER 5 MG Oxybutynin Chloride ER 5 MG 12/22/2019 12:00:00 AM EST 1.0 {tablet} active Oxybutynin Chloride ER 5 MG eCW1 ([facility]) 24 HR Oxybutynin chloride 5 MG Extended Release Oral Tablet Oxybutynin Chloride ER 5 MG Oxybutynin Chloride ER 5 MG 12/22/2019 12:00:00 AM EST 1.0 {tablet} active Oxybutynin Chloride ER 5 MG eCW1 ([facility]) 24 HR Oxybutynin chloride 5 MG Extended Release Oral Tablet Oxybutynin Chloride ER 5 MG Oxybutynin Chloride ER 5 MG 12/22/2019 12:00:00 AM EST 1.0 {tablet} active Oxybutynin Chloride ER 5 MG eCW1 ([facility]) 24 HR Oxybutynin chloride 5 MG Extended Release Oral Tablet Oxybutynin Chloride ER 5 MG Oxybutynin Chloride ER 5 MG 12/22/2019 12:00:00 AM EST 1.0 {tablet} active Oxybutynin Chloride ER 5 MG eCW1 ([facility]) 24 HR Oxybutynin chloride 5 MG Extended Release Oral Tablet Oxybutynin Chloride ER 5 MG Oxybutynin Chloride ER 5 MG 12/22/2019 12:00:00 AM EST 1.0 {tablet} active Oxybutynin Chloride ER 5 MG eCW1 ([facility]) 24 HR Oxybutynin chloride 5 MG Extended Release Oral Tablet Oxybutynin Chloride ER 5 MG Oxybutynin Chloride ER 5 MG 12/22/2019 12:00:00 AM EST 1.0 {tablet} active Oxybutynin Chloride ER 5 MG eCW1 ([facility]) 24 HR Oxybutynin chloride 5 MG Extended Release Oral Tablet Oxybutynin Chloride ER 5 MG Oxybutynin Chloride ER 5 MG 12/22/2019 12:00:00 AM EST 1.0 {tablet} active Oxybutynin Chloride ER 5 MG eCW1 ([facility]) 24 HR Oxybutynin chloride 5 MG Extended Release Oral Tablet Oxybutynin Chloride ER 5 MG Oxybutynin Chloride ER 5 MG 12/22/2019 12:00:00 AM EST 1.0 {tablet} active Oxybutynin Chloride ER 5 MG eCW1 ([facility]) 24 HR Oxybutynin chloride 5 MG Extended Release Oral Tablet Oxybutynin Chloride ER 5 MG Oxybutynin Chloride ER 5 MG 12/22/2019 12:00:00 AM EST active 1 tablet eCW1 ([facility]) 24 HR Oxybutynin chloride 5 MG Extended Release Oral Tablet Oxybutynin Chloride ER 5 MG Oxybutynin Chloride ER 5 MG 12/22/2019 12:00:00 AM EST 1.0 {tablet} active Oxybutynin Chloride ER 5 MG eCW1 ([facility]) 24 HR Oxybutynin chloride 5 MG Extended Release Oral Tablet Oxybutynin Chloride ER 5 MG Oxybutynin Chloride ER 5 MG 12/22/2019 12:00:00 AM EST 1.0 {tablet} active Oxybutynin Chloride ER 5 MG eCW1 ([facility]) 24 HR Oxybutynin chloride 5 MG Extended Release Oral Tablet Oxybutynin Chloride ER 5 MG Oxybutynin Chloride ER 5 MG 12/22/2019 12:00:00 AM EST 1.0 {tablet} active Oxybutynin Chloride ER 5 MG eCW1 ([facility]) 24 HR Oxybutynin chloride 5 MG Extended Release Oral Tablet Oxybutynin Chloride ER 5 MG Oxybutynin Chloride ER 5 MG 12/22/2019 12:00:00 AM EST active 1 tablet eCW1 ([facility]) 24 HR Oxybutynin chloride 5 MG Extended Release Oral Tablet Oxybutynin Chloride ER 5 MG Oxybutynin Chloride ER 5 MG 12/22/2019 12:00:00 AM EST 1.0 {tablet} active Oxybutynin Chloride ER 5 MG eCW1 ([facility]) 24 HR Oxybutynin chloride 5 MG Extended Release Oral Tablet Oxybutynin Chloride ER 5 MG Oxybutynin Chloride ER 5 MG 12/22/2019 12:00:00 AM EST 1.0 {tablet} active Oxybutynin Chloride ER 5 MG eCW1 ([facility]) 24 HR Oxybutynin chloride 5 MG Extended Release Oral Tablet Oxybutynin Chloride ER 5 MG Oxybutynin Chloride ER 5 MG 12/22/2019 12:00:00 AM EST 1.0 {tablet} active Oxybutynin Chloride ER 5 MG eCW1 ([facility]) 24 HR Oxybutynin chloride 5 MG Extended Release Oral Tablet Oxybutynin Chloride ER 5 MG Oxybutynin Chloride ER 5 MG 12/22/2019 12:00:00 AM EST 1.0 {tablet} active Oxybutynin Chloride ER 5 MG eCW1 ([facility]) ammonium lactate 120 MG/ML Topical Cream Ammonium Lactate 12/20/2019 12:00:00 AM EST active MEDENT ([facility] 24 HR Oxybutynin chloride 5 MG Extended Release Oral T ablet Oxybutynin Chloride ER 12/16/2019 12:00:00 AM EST ORAL active MEDENT ([facility], ) 24 HR Oxybutynin chloride 5 MG Extended Release Oral Tablet Oxybutynin Chloride ER 5 MG Oxybutynin Chloride ER 5 MG 12/16/2019 12:00:00 AM EST active 1 tablet eCW1 ([facility]) 3 ML Insulin Lispro 100 UNT/ML Pen Injec tor Insulin Lispro (1 Unit Dial) 100 UNIT/ML Subcutaneous Solution Pen-injector (HUMALOG KWIKPEN) Insulin Lispro (1 Unit Dial) 100 UNIT/ML Subcutaneous Solution Pen-injector (HUMALOG KWIKPEN) 10/05/2019 12:00:00 AM EST [facility] [place] Type 2 diabetes mellitus with hyperglycemia, with long-term current use of insulin I nject subq 3 times daily per insulin orders. Max Daily Dose: 55 units inclusive of priming and titiration. Dx code: E11.65 [facility] Type 2 diabetes mellitus with hyperglyce doug, with long-term current use of insulin Glucagon 1 MG Injection glucagon (GLUCAGON EMERGENCY) 1 MG injection glucagon (GLUCAGON EMERGENCY) 1 MG injection 06/17/2019 12:00:00 AM EDT active Type 2 diabetes mellitus with hyperglycemia, with long-term current use of insulin Inject 1 mg IM as directed as needed. D X E11.65 [facility] Type 2 diabetes mellitus with hyperglyce doug, with long-term current use of insulin 24 HR Metformin hydrochloride 500 MG Ext ended Release Oral Tablet metformin (GLUCOPHAGE-XR) 500 MG 24 hr tablet metformin (GLUCOPHAGE-XR) 500 MG 24 hr tablet 09/22/2018 12:00:00 AM EST 1000 mg Oral aborted Take 2 tablets by mouth Two times daily with meals [facility] OneTouch Delica Plus Lancet 33 gauge [id number] completed OneTouch Delica Plus Lancet 33 gauge AKIRA ([facility]) sure comfort mis 31gx3/16 completed sure comfort mis 31gx3/16 AKIRA ([facility]) 24 HR Metformin hydrochloride 500 MG Ext ended Release Oral Tablet metformin ER 500 mg tablet,extended release 24 hr metformin ER 500 mg tablet,extended rele ase 24 hr completed 24 HR M etformin hydrochloride 500 MG Extended Release Oral Tablet AKIRA ([facility]) NITROFURANTOIN, MACROCRYSTALS 25 MG / Ni trofurantoin, Monohydrate 75 MG Oral Capsule nitrofurantoin monohydrate/macrocrystals 100 mg capsule nitrofurantoin monohydrate/macrocrystals 100 mg capsule completed NITROFURANTOIN, MACROCRYSTALS 25 MG / Nitrofurantoin, Monohydrate 75 MG Oral Capsule AKIRA ([facility] ) NITROFURANTOIN, MACROCRYSTALS 25 MG / Ni trofurantoin, Monohydrate 75 MG Oral Capsule nitrofurantoin monohydrate/macrocrystals 100 mg capsule nitrofurantoin monohydrate/macrocrystals 100 mg capsule completed NITROFURANTOIN, MACROCRYSTALS 25 MG / Nitrofurantoin, Monohydrate 75 MG Oral Capsule [facility] Unifine Pentips Plus 31 gauge x 3/16" needle [id number] completed Unifine Pentips Plus 31 gauge x 3/16" needle AKIRA ([facility] ) Cephalexin 500 MG Oral Capsule cephalexin 500 mg capsu le cephalexin 500 mg capsule completed Cephalexin 500 MG Oral Capsule AKIRA ([facility] ) Glucagon 1 MG Injection Glucagon Emergen cy Kit (human-recomb) 1 mg solution for injection Glucagon Emergency Kit (human-recomb) 1 mg solution for injectio n completed glucagon (rDNA) 1 MG I njection AKIRA ([facility] ) Cephalexin 500 MG Oral Capsule cephalexin 500 mg capsu le cephalexin 500 mg capsule completed Cephalexin 500 MG Oral Capsule AKIR[facility] ([facility] ) Amoxicillin 875 MG / Clavulanate 125 MG Oral Tablet amoxicillin 875 mg-potassium clavulanate 125 mg tablet amoxicillin 875 mg-potassium clavulanate 125 mg tablet completed amoxici llin 875 MG / clavulanate 125 MG Oral Tablet [facility] ([facility] ) Cefuroxime 500 MG Oral Tablet cefuroxime axetil 500 mg tablet cefuroxime axetil 500 mg tablet completed cefuroxi me 500 MG Oral Tablet [facility]IR[facility] ([facility] ) 24 HR Metformin hydrochloride 500 MG Ext ended Release Oral Tablet metformin ER 500 mg tablet,extended release 24 hr metformin ER 500 mg tablet,extended rele ase 24 hr completed 24 HR M etformin hydrochloride 500 MG Extended Release Oral Tablet [facility] ([facility] ) 24 HR Metformin hydrochloride 500 MG Ext ended Release Oral Tablet metformin ER 500 mg tablet,extended release 24 hr metformin ER 500 mg tablet,extended rele ase 24 hr completed 24 HR M etformin hydrochloride 500 MG Extended Release Oral Tablet [facility] ([facility] ) Ondansetron 4 MG Disintegrating Oral Tab let ondansetron 4 mg disintegrating tablet ondansetron 4 mg disintegrating tablet completed Ondansetron 4 MG Disintegrating Oral Tablet AKIRA ([facility] ) ciclopirox 80 MG/ML Topical Solution ciclopirox 8 % to pical solution ciclopirox 8 % topical solution completed ciclopirox 80 MG/ML Topical Solution [facility] ([facility] ) Glucagon 1 MG Injection Glucagon Emergen cy Kit (human-recomb) 1 mg solution for injection Glucagon Emergency Kit (human-recomb) 1 mg solution for injectio n completed glucagon (rDNA) 1 MG I njection [facility]IRA ([facility] ) ciclopirox 80 MG/ML Topical Solution ciclopirox 8 % to pical solution ciclopirox 8 % topical solution completed ciclopirox 80 MG/ML Topical Solution [facility]IRA ([facility] ) Afluria Qd 2018- (36 mos up)(PF)60 mcg (15 mcg x4)/0.5 mL IM s yringe [id number] completed 0.5 ML influen za A virus A/[place] (H1N1) antigen 0.03 MG/ML / influenza A virus A/ (H3N2) antigen 0.03 MG/ML / influenza B virus B/ antigen 0.03 MG/ML / influenza B virus B/[facility] antigen 0.03 MG/ML Prefilled Syringe [Afluria Quadrivalent ] AKIRA ([facility] ) OneTouch Verio test strips [id number] comp leted OneTouch Verio test strips AKIRA ([facility] ) NITROFURANTOIN, MACROCRYSTALS 25 MG / Ni trofurantoin, Monohydrate 75 MG Oral Capsule nitrofurantoin monohydrate/macrocrystals 100 mg capsule nitrofurantoin monohydrate/macrocrystals 100 mg capsule completed NITROFURANTOIN, MACROCRYSTALS 25 MG / Nitrofurantoin, Monohydrate 75 MG Oral Capsule [facility] ([facility]) sure comfort mis 31gx3/16 completed sure comfort mis 31gx3/16 [facility]IR[facility] ([facility]) sure comfort mis 31gx3/16 completed sure comfort mis 31gx3/16 [facility]IR[facility] ([facility]) Furosemide 40 MG Oral Tablet furosemide (LASIX) 40 MG tablet furosemide (LASIX) 40 MG tablet 40 mg Oral aborted Take 40 mg by mouth daily. [facility] Afluria Qd 2019- (36 mos up)(PF)60 mcg (15 mcg x4)/0.5 mL IM s yringe [id number] completed 0.5 ML influen za A virus A/[place] (H1N1) antigen 0.03 MG/ML / influenza A virus A/ (H3N2) antigen 0.03 MG/ML / influenza B virus B/ antigen 0.03 MG/ML / influenza B virus B/[facility] antigen 0.03 MG/ML Prefilled Syringe [Afluria Quadrivalent ] [facility]IR[facility] ([facility]) ciclopirox 80 MG/ML Topical Solution ciclopirox 8 % to pical solution ciclopirox 8 % topical solution completed ciclopirox 80 MG/ML Topical Solution [facility] ([facility]) metaxalone 800 MG Oral Tablet metaxalone (SKELAXIN) 80 0 MG tablet metaxalone (SKELAXIN) 800 MG tablet 800 mg Oral aborted Take 800 mg by mouth Three times daily. [facility] Glucagon 1 MG Injection Glucagon Emergen cy Kit (human-recomb) 1 mg solution for injection Glucagon Emergency Kit (human-recomb) 1 mg solution for injectio n completed glucagon (rDNA) 1 MG I njection AKIRA ([facility]) NITROFURANTOIN, MACROCRYSTALS 25 MG / Ni trofurantoin, Monohydrate 75 MG Oral Capsule nitrofurantoin monohydrate/macrocrystals 100 mg capsule nitrofurantoin monohydrate/macrocrystals 100 mg capsule completed nitrofurantoin, macrocrystals 25 MG / nitrofurantoin, monohydrate 75 MG Oral Capsule [facility]IR[facility] ([facility]) Ondansetron 4 MG Disintegrating Oral Tab let ondansetron 4 mg disintegrating tablet ondansetron 4 mg disintegrating tablet completed Ondansetron 4 MG Disintegrating Oral Tablet [facility]IR[facility] ([facility]) Glucagon 1 MG Injection Glucagon Emergen cy Kit (human-recomb) 1 mg solution for injection Glucagon Emergency Kit (human-recomb) 1 mg solution for injectio n completed glucagon (rDNA) 1 MG I njection [facility]IR[facility] ([facility]) Ondansetron 4 MG Disintegrating Oral Tab let ondansetron 4 mg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 SUBCUTANEOUS TISSUE 20 SQ CM/< 06/29/2020 12:00:00 AM EDT [facility] ([facility] DEBRIDEMENT SUBCUTANEOUS TISSUE 20 SQ CM/< 06/21/2020 12:00:00 AM EDT MED[facility] ([facility] Coronary Angiography With Left Heart Catheterization 06/12/2020 12:00:00 AM EDT [facility] ([facility]) Tenotomy Toe Subcutaneous Single 06/06/2020 12:00:00 A M EDT MEDENT ([facility] DEBRIDEMENT OPEN WOUND 20 SQ CM/< 06/06/2020 12:00:00 AM EDT MEDENT ([facility] DEBRIDEMENT NAIL ANY METHOD 6/> 05/23/2020 12:00:00 AM EDT MEDENT ([facility] DEBRIDEMENT OPEN WOUND 20 SQ CM/< 05/23/2020 12:00:00 AM EDT MEDENT ([facility] Myocardial Perfusion Imaging Tomographic (Spect) Multiple St udies 05/01/2020 12:00:00 AM EDT MEDENT ([facility]) Cardiovascular Stress Test Physician Supervision Only 05/01/2020 12:00:00 AM EDT [facility]ENT ([facility]) Cardiovascular Stress Test Interpretation & Report Only 05/01/2020 12:00:00 AM EDT [facility] ([facility]) Echocardiography, Tranthoracic Real-Time Image Documentation 05/01/2020 12:00:00 AM EDT [facility] ([facility]) Echocardiography, Tranthoracic Real-Time Image Documentation 05/01/2020 12:00:00 AM EDT [facility] ([facility]) RADEX ANKLE COMPLETE MINIMUM 3 VIEWS 04/21/2020 12:00: 00 AM EDT MEDENT ([facility]) RADEX FOOT COMPLETE MINIMUM 3 VIEWS 04/21/2020 12:00:0 0 AM EDT MEDENT ([facility]) RADIOLOGIC EXAM KNEE COMPLETE 4/MORE VIEWS 03/15/2020 12:00:00 AM EDT MEDENT ([facility]) Inject/Drain Arthrocentesis Major Joint/Bursa/Ganglion Cyst 03/15/2020 12:00:00 AM EDT [facility] X-Ray Knee Complete W/Obliques & Tunnel And/Or Standing View s 03/15/2020 12:00:00 AM EDT [facility] PARING/CUTTING BENIGN HYPERKERATOTIC LESION 2-4 2019 12:00:00 AM EDT [facility] ([facility] Electrocardiogram Complete 01/10/2020 12:00:00 AM EST [facility] ([facility]) RADEX WRIST COMPLETE MINIMUM 3 VIEWS 01/10/2020 12:00: 00 AM EST MEDENT ([facility]) Office Visit, Est Pt., Level 4 PC 01/03/2020 12:00:00 AM EST eCW1 ([facility]) PARING/CUTTING BENIGN HYPERKERATOTIC LESION 2-4 2019 12:00:00 AM EST MEDENT ([facility] DEBRIDEMENT NAIL ANY METHOD 6/> 12/20/2019 12:00:00 AM EST [facility]ENT ([facility] SIMPLE CYSTOMETROGRAM 12/16/2019 12:00:00 AM EST eCW1 ([facility]) CREATININE BLOOD CREATININE WITH GFR Routine 11/19/2019 1:32 PM EST Inflammatory arthritis Encounter for methotrexate monitoring 11/19/2019 06:32:00 PM [facility] Inflammatory arthritis SEDIMENTATION RATE RBC AUTOMATED SEDIMENTATION RATE, AUTOMATED Routine 11/19/2019 1:32 PM EST Inflammatory arthritis 11/19/2019 06:32:00 PM EST Inflammatory a [facility] Inflammatory arthritis BLOOD COUNT COMPLETE AUTO&AUTO DIFRNTL WBC COUNT CBC AND DIFFER ENTIAL Routine 11/19/2019 1:32 PM EST Inflammatory arthritis Encounter for methotrexate monitoring 11/19/2019 06:32:00 PM [facility] Inflammatory arthritis COMPLEMENT ANTIGEN EACH COMPONENT C3 COMPLEMENT Routine 11/19/2019 1:32 PM EST Inflammatory arthritis 11/19/2019 06:32:00 PM EST Inflammatory a [facility] Inflammatory arthritis COMPLEMENT ANTIGEN EACH COMPONENT C4 COMPLEMENT Routine 11/19/2019 1:32 PM EST Inflammatory arthritis 11/19/2019 06:32:00 PM EST Inflammatory a [facility] Inflammatory arthritis ANTINUCLEAR ANTIBODIES BRIAN BRIAN Routine 11/19/2019 1 :32 PM EST Inflammatory arthritis 11/19/2019 06:32:00 PM EST Inflammatory a [facility] Inflammatory arthritis HEPATIC FUNCTION PANEL HEPATIC FUNCTION PANEL A Routine 11/19/2019 1:32 PM EST Inflammatory arthritis Encounter for methotrexate monitoring 11/19/2019 06:32:00 PM EST [facility] for [facility]rexate monitoring Inflammatory arthritis XR, chest, 2 view 11/01/2019 12:00:00 AM EST AKIRA ([facility]) XR, chest, 2 view 11/01/2019 12:00:00 AM EST AKIRA ([facility]) XR, chest, 2 view 11/01/2019 12:00:00 AM EST AKIRA ([facility]) XR, chest, 2 view 11/01/2019 12:00:00 AM EST AKIRA ([facility]) PARING/CUTTING BENIGN HYPERKERATOTIC LESION 1 10/11/20 19 12:00:00 AM EST [facility] DEBRIDEMENT NAIL ANY METHOD 6/> 10/11/2019 12:00:00 AM EST [facility] ([facility] Results ID Date Data Source [id number] 11/14/2020 11:29:59 AM EST [facility] Name Value Range Interpretation Code Description Data Iman rce(s) Supporting Document(s) Progress Note [facility] DAMZHe2zGoZGDaKi60/ZDPjuMYUtu4RyOKzbKRa1NXldSVUpK2JxRZB1sS7aCXE9YJjWHdNpWzCoYPV9 lbm [file] BjVqZAAdTbVrCU7AVj6OFhS8DOL1jYFvNo1VEHq6MiTDZsScYN4XATn= ID Date Data Source [id number] 11/08/2020 01:30:00 PM EST [facility] Name Value Range Interpretation Code Description Data Iman rce(s) Supporting Document(s) SARS coronavirus 2 RNA [facility] This lab was ordered by [facility] and reported by [facility]. ID Date Data Source Ultrasound : Leg, right 10/03/2020 12:00:00 AM EST eCW1 ([facility]) Name Value Range Interpretation Code Description Data Iman rce(s) Supporting Document(s) Ultrasound : Leg, right eCW1 ( [facility]) ID Date Data Source [id number] 09/29/2020 09:06:53 PM EST [facility] Name Value Range Interpretation Code Description Data Iman rce(s) Supporting Document(s) Progress Note [facility] RUJDHd6oOqGVSaZu54/BEMdqOMPql9CiEYjhHIm8XKnzQNQwO1HtCZT2fD4rENJ5YVgLItBiWmRtUFDf lbm [file] [facility]+Fa+lbL+Fkzim+rnsv6Hgdb1jlmjuUu1Mj6+K3 [file] [id number]JGsP1VET0cFYkQr7LUCY5OFNVVpRoPO7JCOt= ID Date Data Source PT-INR Fingerstick 09/11/2020 03:17:01 AM EST W1 ([facility]) Name Value Range Interpretation Code Description Data Iman rce(s) Supporting Document(s) 5MG on Sundays Current Dose 1 eCW1 ([facility]) 4.1 (September 08, 2020) INR eCW1 ([facility]) 7.5MG the ROW Current Dose 2 eCW1 ([facility]) Yes-RADHA Gaines Verified Patient' s Name and eCW1 ([facility]) Blood Draw Internal QC Acceptable (Y /N) eCW1 ([facility]) 5MG Tabs Tab Strength eCW1 ([facility]) - Recent Bleeding eCW1 ([facility]) DVT Indication for Anticoagulation eCW1 ([facility]) She took none on September 08 New Dose 1 eCW1 ([facility]) 5 mg daily New Dose 2 eCW1 ([facility]) 2-3 Therapeutic Range eCW1 ([facility]) Education Given (Date / Initia ls) eCW1 ([facility]) FR - eCW1 ([facility]) Weekly Total eCW1 ([facility]) 09/13 Next PT-INR eCW1 ([facility]) ID Date Data Source [id number] 09/08/2020 10:16:00 AM EDT MEDENT ([facility]) Name Value Range Interpretation Code Description Data Iman rce(s) Supporting Document(s) Venipuncture Laboratory test result MEDE NT ([facility]) pt did not fast ID Date Data Source [id number] 09/08/2020 10:16:00 AM EDT [facility] Name Value Range Interpretation Code Description Data Iman rce(s) Supporting Document(s) INR in Platelet poor plasma by Coagulation assay 4.1 Record coming over is a correction and thus replaces a final [facility] Results Confirmed by Repeat Analysis. called to [facility] and transmitted 120 josué 09/08/2020 * INR Interpretation : . Recommended Theraputic Range: 2.0 - 3.0 . For treatment/prophylaxis . of venous thrombosis, . prevention of embolism. . . Prothrombin time (PT) 44.6 Sec 10.6-13.0 Above high normal MEDENT ([facility]) ID Date Data Source [id number] 09/08/2020 10:16:00 AM EDT [facility] Name Value Range Interpretation Code Description Data Iman rce(s) Supporting Document(s) Magnesium [Mass/volume] in Serum or Plasma 1.8 mg/dL 1.7-2.4 MEDENT ([facility]) pt did not fast Phosphate [Moles/volume] in Serum or Plasma 3.3 mg/dL 2.7-4.5 MEDENT ([facility]) 04/17/2020-According to [employer] Blood sa mples from some patients with monoclonal gammopathies may produce falsely elevated phosphorous results with this assay. ID Date Data Source [id number] 09/08/2020 10:16:00 AM EDT [facility] ([facility]) Name Value Range Interpretation Code Description Data Iman rce(s) Supporting Document(s) Urea nitrogen [Moles/volume] in Serum or Plasma 10 mg/dL 6-20 [facility] ([facility]) Glucose [Mass/volume] in Serum or Plasma 205 mg/dL 74-106 Above high normal [facility] ([facility]) [place] Diabetes Association (ADA) Recommended Range is 65-99 mg/dL Creatinine [Mass/volume] in Serum or Plasma 0.8 mg/dL 0.5-1.3 [facility] ([facility]) Sodium [Moles/volume] in Serum or Plasma 134 mmol/L 136-145 Below low normal [facility] ([facility]) Potassium [Moles/volume] in Serum or Plasma 5.2 mmol/L 3.5-5.3 [facility] ([facility]) Chloride [Moles/volume] in Serum or Plasma 99 mmol/L 98-107 [facility] ([facility]) Carbon dioxide, total [Moles/volume] in Serum or Plasma 26 meq/L 20 -31 [facility] ([facility]) Anion Gap 9 mmol/L 7-16 [facility]) eGFR-Aa female 92 mL/m/1.73m [facility] <content>Normal Kidney Function or Mild Disease GFR >59 mL/min/1.73m2</content>
<content>Chronic Kidney Disease GFR 15-59 mL/min/1.73m2</content>
<content>Renal Failure GFR <15 mL/min/1.73m2</content>
<content></content> eGFR-female 76 mL/m/1.73m [facility] ([facility]) Calcium [Mass/volume] in Serum or Plasma 9.7 mg/dL 8.9-10.5 [facility] ([facility]) ID Date Data Source [id number] 09/08/2020 10:16:00 AM EDT [facility]) Name Value Range Interpretation Code Description Data Iman rce(s) Supporting Document(s) WBC. 9.63 x10E3/uL 4.2-12.0 [facility]) Erythrocytes [#/volume] in Blood by Automated count 4.75 x10E6/uL 3.9 -5.4 [facility] ([facility]) Hemoglobin [Mass/volume] in Blood 13.5 g/dL 12.0-16.0 [facility] ([facility]) MCV 89.2 fL 80-98 [facility]) MCH 28.5 pg 27-33 [facility]) Hematocrit [Volume Fraction] of Blood by Automated count 42.3 % 3 6-47 [facility] ([facility]) Platelets [#/volume] in Blood by Automated count 357 x10E3/uL 135-420 [facility] ([facility]) RDW 14.5 % 11.2-15.2 [facility]) MCHC 31.9 g/dL 32-36 Below low normal [facility] ([facility]) %[place] 3.0 % 2.0-13.0 [facility]) % Elicia 62.3 % 41.0-80.0 [facility]) MPV 7.9 fL 7.0-12.3 [facility]) %Lym 32.5 % 10.0-45.2 [facility]) %Eos 1.3 % 0.0-8.0 [facility]) %Baso 0.9 % 0.0-3.0 [facility]) Neut 6.0 x10E3/uL 2.0-8.1 [facility]) [place] 0.3 x10E3/uL 0.0-1.0 [facility] Lymp 3.1 x10E3/uL 0.6-3.1 [facility] Eos 0.1 x10E3/uL 0.0-0.6 [facility]) Baso 0.1 x10E3/uL 0.0-0.2 [facility]) ID Date Data Source [id number] 09/01/2020 09:44:02 AM EDT [facility] Name Value Range Interpretation Code Description Data Iman rce(s) Supporting Document(s) POC GLUCOSE 108 mg/dL (70-99) H [facility] NOTIFIED NURSEPERFORMED BY CLINICAL S TAFF ID Date Data Source [id number] 09/01/2020 06:33:23 AM EDT [facility] Name Value Range Interpretation Code Description Data Iman rce(s) Supporting Document(s) POC GLUCOSE 112 mg/dL (70-99) H [facility] NOTIFIED NURSEPERFORMED BY CLINICAL S TAFF ID Date Data Source [id number] 09/01/2020 05:01:51 AM EDT [facility] Name Value Range Interpretation Code Description Data Iman rce(s) Supporting Document(s) POC GLUCOSE 87 mg/dL (70-99) [facility] PERFORMED BY CLINICAL STAFF ID Date Data Source [id number] 09/01/2020 03:48:09 AM EDT [facility] Name Value Range Interpretation Code Description Data Iman rce(s) Supporting Document(s) POC GLUCOSE 104 mg/dL (70-99) H [facility] NOTIFIED NURSEPERFORMED BY CLINICAL S TAFF ID Date Data Source [id number] 09/01/2020 02:34:20 AM EDT [facility] Name Value Range Interpretation Code Description Data Iman rce(s) Supporting Document(s) POC GLUCOSE 114 mg/dL (70-99) H [facility] PERFORMED BY CLINICAL STAFF ID Date Data Source [id number] 09/01/2020 02:28:44 AM EDT [facility] Name Value Range Interpretation Code Description Data Iman rce(s) Supporting Document(s) POC GLUCOSE 63 mg/dL (70-99) L [facility] NOTIFIED NURSEPERFORMED BY CLINICAL S TAFF ID Date Data Source [id number] 08/31/2020 10:25:04 PM EDT [facility] Name Value Range Interpretation Code Description Data Iman rce(s) Supporting Document(s) POC GLUCOSE 86 mg/dL (70-99) [facility] PERFORMED BY CLINICAL STAFF ID Date Data Source [id number] 08/31/2020 05:46:24 PM EDT [facility] Name Value Range Interpretation Code Description Data Iman rce(s) Supporting Document(s) POC GLUCOSE 85 mg/dL (70-99) [facility] PERFORMED BY CLINICAL STAFF ID Date Data Source [id number] 08/31/2020 04:26:36 PM EDT [facility] Name Value Range Interpretation Code Description Data Iman rce(s) Supporting Document(s) POC GLUCOSE 98 mg/dL (70-99) [facility] NOTIFIED NURSEPERFORMED BY CLINICAL S TAFF ID Date Data Source [id number] 08/31/2020 03:14:51 PM EDT [facility] Name Value Range Interpretation Code Description Data Iman rce(s) Supporting Document(s) POC GLUCOSE 86 mg/dL (70-99) [facility] PERFORMED BY CLINICAL STAFF ID Date Data Source [id number] 08/31/2020 01:42:58 PM EDT [facility] Name Value Range Interpretation Code Description Data Iman rce(s) Supporting Document(s) POC GLUCOSE 117 mg/dL (70-99) H [facility] PERFORMED BY CLINICAL STAFF ID Date Data Source [id number] 08/31/2020 12:29:25 PM EDT [facility] Name Value Range Interpretation Code Description Data Iman rce(s) Supporting Document(s) POC GLUCOSE 127 mg/dL (70-99) H [facility] NOTIFIED NURSEPERFORMED BY CLINICAL S TAFF ID Date Data Source [id number] 08/31/2020 11:29:26 AM EDT [facility] Name Value Range Interpretation Code Description Data Iman rce(s) Supporting Document(s) POC GLUCOSE 155 mg/dL (70-99) H [facility] PERFORMED BY CLINICAL STAFF ID Date Data Source [id number] 08/31/2020 09:46:06 AM EDT [facility] Name Value Range Interpretation Code Description Data Iman rce(s) Supporting Document(s) POC GLUCOSE 100 mg/dL (70-99) H [facility] NOTIFIED NURSEPERFORMED BY CLINICAL S ELMO ID Date Data Source [id number] 08/31/2020 07:21:33 AM EDT [facility] Name Value Range Interpretation Code Description Data Iman rce(s) Supporting Document(s) SODIUM 143 mmol/L (136-145) [facility] POTASSIUM 3.7 mmol/L (3.6-5.2) [facility] CHLORIDE 110 mmol/L (100-108) H [facility] CO2 27 mmol/L (22-31) [facility] ANION GAP 6 mmol/L (7-16) L [facility] UREA NITROGEN 9 mg/dL (7-24) [facility] CREATININE 0.68 mg/dL (0.60-1.00) [facility] BUN/CREAT RATIO 13.2 RATIO (10.0-20.0) [facility] GLUCOSE 80 mg/dL (70-99) [facility] CALCIUM 8.0 mg/dL (8.4-10.2) L [facility] GFR >60 ml/min/1.73m2 (>59) [facility] GFR ( AMER) >60 ml/min/1.73m2 (>59) [facility] GFR INTERPRETATION [facility] --NORMAL KIDNEY FUNCTION OR MILD DISEASE - GFR >OR= 60CHRONIC KIDNEY DISEASE - GFR 15 - 59RENAL FAILURE - GFR <15 Est. GFR calculation based on the MDRDstudy equation, which assumes a steadystate for creatinine. Est. GFR should notbe used for medication dosing. ID Date Data Source [id number] 08/31/2020 06:53:04 AM EDT [facility] Name Value Range Interpretation Code Description Data Iman rce(s) Supporting Document(s) WBC 6.7 10*3/uL (4.1-11.0) [facility] RBC 3.65 10*6/uL (4.00-5.40) L [facility] HGB 10.3 g/dL (12.0-16.0) L [facility] HCT 31.8 % (36.0-47.0) L [facility] MCV 87.0 fL (80.0-95.0) [facility] MCH 28.2 pg (27.0-32.0) [facility] MCHC 32.4 g/dL (32.0-36.0) [facility] RDW 14.9 % (10.5-14.5) H [facility] PLT 266 10*3/uL (150-450) [facility] MPV 8.0 fL (7.1-10.7) [facility] ID Date Data Source [id number] 08/31/2020 05:49:09 AM EDT [facility] Name Value Range Interpretation Code Description Data Iman rce(s) Supporting Document(s) POC GLUCOSE 78 mg/dL (70-99) [facility] NOTIFIED NURSEPERFORMED BY CLINICAL S TAFF ID Date Data Source [id number] 08/31/2020 01:46:09 AM EDT [facility] Name Value Range Interpretation Code Description Data Iman rce(s) Supporting Document(s) POC GLUCOSE 84 mg/dL (70-99) [facility] NOTIFIED NURSEPERFORMED BY CLINICAL S TAFF ID Date Data Source [id number] 08/31/2020 12:26:14 AM EDT [facility] Name Value Range Interpretation Code Description Data Iman rce(s) Supporting Document(s) POC GLUCOSE 98 mg/dL (70-99) [facility] NOTIFIED NURSEPERFORMED BY CLINICAL S TAFF ID Date Data Source [id number] 08/30/2020 11:29:24 PM EDT [facility] Name Value Range Interpretation Code Description Data Iman rce(s) Supporting Document(s) POC GLUCOSE 101 mg/dL (70-99) H [facility] PERFORMED BY CLINICAL STAFF ID Date Data Source [id number] 08/30/2020 10:30:18 PM EDT [facility] Name Value Range Interpretation Code Description Data Iman rce(s) Supporting Document(s) POC GLUCOSE 94 mg/dL (70-99) [facility] NOTIFIED NURSEPERFORMED BY CLINICAL S TAFF ID Date Data Source [id number] 08/30/2020 10:11:15 PM EDT [facility] Name Value Range Interpretation Code Description Data Iman rce(s) Supporting Document(s) POC GLUCOSE 63 mg/dL (70-99) L [facility] NOTIFIED NURSEPERFORMED BY CLINICAL S TAFF ID Date Data Source [id number] 08/30/2020 09:48:14 PM EDT [facility] Name Value Range Interpretation Code Description Data Iman rce(s) Supporting Document(s) POC GLUCOSE 50 mg/dL (70-99) L [facility] NOTIFIED NURSEPERFORMED BY CLINICAL S TAFF ID Date Data Source [id number] 08/30/2020 05:50:06 PM EDT [facility] Name Value Range Interpretation Code Description Data Iman rce(s) Supporting Document(s) POC GLUCOSE 174 mg/dL (70-99) H [facility] PERFORMED BY CLINICAL STAFF ID Date Data Source [id number] 08/30/2020 02:01:46 PM EDT [facility] Name Value Range Interpretation Code Description Data Iman rce(s) Supporting Document(s) POC GLUCOSE 122 mg/dL (70-99) H [facility] PERFORMED BY CLINICAL STAFF ID Date Data Source [id number] 08/30/2020 12:17:41 PM EDT [facility] Name Value Range Interpretation Code Description Data Iman rce(s) Supporting Document(s) POC GLUCOSE 58 mg/dL (70-99) L [facility] PERFORMED BY CLINICAL STAFF ID Date Data Source [id number] 08/30/2020 10:17:52 AM EDT [facility] Name Value Range Interpretation Code Description Data Iman rce(s) Supporting Document(s) POC GLUCOSE 60 mg/dL (70-99) L [facility] PERFORMED BY CLINICAL STAFF ID Date Data Source [id number] 08/30/2020 08:31:43 AM EDT [facility] Name Value Range Interpretation Code Description Data Iman rce(s) Supporting Document(s) POC GLUCOSE 91 mg/dL (70-99) [facility] PERFORMED BY CLINICAL STAFF ID Date Data Source [id number] 08/30/2020 07:36:25 AM EDT [facility] Name Value Range Interpretation Code Description Data Iman rce(s) Supporting Document(s) POC GLUCOSE 64 mg/dL (70-99) L [facility] NOTIFIED NURSEPERFORMED BY CLINICAL S TAFF ID Date Data Source [id number] 08/30/2020 07:58:30 AM EDT [facility] Name Value Range Interpretation Code Description Data Iman rce(s) Supporting Document(s) SODIUM 143 mmol/L (136-145) [facility] POTASSIUM 3.9 mmol/L (3.6-5.2) [facility] CHLORIDE 110 mmol/L (100-108) H [facility] CO2 27 mmol/L (22-31) [facility] ANION GAP 6 mmol/L (7-16) L [facility] UREA NITROGEN 13 mg/dL (7-24) [facility] CREATININE 0.75 mg/dL (0.60-1.00) [facility] BUN/CREAT RATIO 17.3 RATIO (10.0-20.0) [facility] GLUCOSE 65 mg/dL (70-99) L [facility] CALCIUM 9.1 mg/dL (8.4-10.2) [facility] GFR >60 ml/min/1.73m2 (>59) [facility] GFR ( AMER) >60 ml/min/1.73m2 (>59) [facility] GFR INTERPRETATION [facility] --NORMAL KIDNEY FUNCTION OR MILD DISEASE - GFR >OR= 60CHRONIC KIDNEY DISEASE - GFR 15 - 59RENAL FAILURE - GFR <15 Est. GFR calculation based on the MDRDstudy equation, which assumes a steadystate for creatinine. Est. GFR should notbe used for medication dosing. ID Date Data Source [id number] 08/30/2020 07:58:30 AM EDT [facility] Name Value Range Interpretation Code Description Data Iman rce(s) Supporting Document(s) MAGNESIUM 2.2 mg/dL (1.7-2.4) [facility] ID Date Data Source [id number] 08/30/2020 07:35:59 AM EDT [facility] Name Value Range Interpretation Code Description Data Iman rce(s) Supporting Document(s) WBC 10.8 10*3/uL (4.1-11.0) [facility] RBC 3.99 10*6/uL (4.00-5.40) L [facility] HGB 11.5 g/dL (12.0-16.0) L [facility] HCT 34.3 % (36.0-47.0) L [facility] MCV 85.8 fL (80.0-95.0) [facility] MCH 28.7 pg (27.0-32.0) [facility] MCHC 33.5 g/dL (32.0-36.0) [facility] RDW 15.2 % (10.5-14.5) H [facility] PLT 348 10*3/uL (150-450) [facility] MPV 8.2 fL (7.1-10.7) [facility] ID Date Data Source [id number] 08/30/2020 06:40:27 AM EDT [facility] Name Value Range Interpretation Code Description Data Iman rce(s) Supporting Document(s) POC GLUCOSE 74 mg/dL (70-99) [facility] PERFORMED BY CLINICAL STAFF ID Date Data Source [id number] 08/30/2020 06:28:55 AM EDT [facility] Name Value Range Interpretation Code Description Data Iman rce(s) Supporting Document(s) POC GLUCOSE 65 mg/dL (70-99) L [facility] PERFORMED BY CLINICAL STAFF ID Date Data Source [id number] 08/30/2020 02:20:44 AM EDT [facility] Name Value Range Interpretation Code Description Data Iman rce(s) Supporting Document(s) POC GLUCOSE 83 mg/dL (70-99) [facility] NOTIFIED NURSEPERFORMED BY CLINICAL S TAFF ID Date Data Source [id number] 08/29/2020 10:35:14 PM EDT [facility] Name Value Range Interpretation Code Description Data Iman rce(s) Supporting Document(s) POC GLUCOSE 117 mg/dL (70-99) H [facility] PERFORMED BY CLINICAL STAFF ID Date Data Source [id number] 08/29/2020 06:15:10 PM EDT [facility] Name Value Range Interpretation Code Description Data Iman rce(s) Supporting Document(s) POC GLUCOSE 142 mg/dL (70-99) H [facility] PERFORMED BY CLINICAL STAFF ID Date Data Source [id number] 08/29/2020 05:05:50 PM EDT [facility] Name Value Range Interpretation Code Description Data Iman rce(s) Supporting Document(s) POC GLUCOSE 129 mg/dL (70-99) H [facility] PERFORMED BY CLINICAL STAFF ID Date Data Source [id number] 08/29/2020 04:03:52 PM EDT [facility] Name Value Range Interpretation Code Description Data Iman rce(s) Supporting Document(s) POC GLUCOSE 146 mg/dL (70-99) H [facility] PERFORMED BY CLINICAL STAFF ID Date Data Source [id number] 08/29/2020 02:57:12 PM EDT [facility] Name Value Range Interpretation Code Description Data Iman rce(s) Supporting Document(s) POC GLUCOSE 178 mg/dL (70-99) H [facility] NOTIFIED NURSEPERFORMED BY CLINICAL S TAFF ID Date Data Source [id number] 08/29/2020 02:30:46 PM EDT [facility] Name Value Range Interpretation Code Description Data Iman rce(s) Supporting Document(s) POC GLUCOSE 222 mg/dL (70-99) H [facility] PERFORMED BY CLINICAL STAFF ID Date Data Source [id number] 08/29/2020 12:35:31 PM EDT [facility] Name Value Range Interpretation Code Description Data Iman rce(s) Supporting Document(s) POC GLUCOSE 209 mg/dL (70-99) H [facility] PERFORMED BY CLINICAL STAFF ID Date Data Source [id number] 08/29/2020 04:50:00 PM EDT [facility] [place], [place] [address]FQEYJAR NAME: EMILIO LEVINEDATE OF : 1970REPORT: OPERATIONPATIENT NUMBER: [id number] STATUS: IPMEDICAL RECORD NUMBER: [id number] OF ADMISSION: 08/29/2020DATE OF DISCHARGE:ROOM: 11DATE OF PROCEDURE: 08/29/2020PREOPERATIVE DIAGNOSIS: Morbid obesity.POSTOPERATIVE DIAGNOSIS: Morbid obesity.PROCEDURE PERFORMED: Laparoscopic sleeve gastrectomy.SURGEON: Delio Gallardo MDASSISTANT: NESS WeldonTHESIA: General endotracheal anesthesia.ANESTHESIOLOGIST: Leandro Terrell MDESTIMATED BLOOD LOSS: Minimal.BRIEF INDICATIONS FOR PROCEDURE: Emilio is a 50-year-old white femalewith a longstanding history of morbid obesity and multiple comorbidconditi ons. She has completed our bariatric program including nutritionalcounseling, psychological evaluation, age-appropriate medical workup. Shehas been cleared for her surgery. She has been approved by insurance andshe now presents for elective sleeve gastrectomy. Please also note a TAPblock was performed by the surgeons as well.PROCEDURE: After informed consent was obtained, the patient was taken tothe operating room. She was placed in supine position. The patient hasbilateral heel ulcers, so she was padded accordingly with offloading of herheels. She was prepped and draped in the usual sterile fashion and atime-out was performed. We verified patient, position, antibiotics,anticoagulants, SCDs, and other appropriate aspects of the case. Weperformed a transverse incision above the umbilicus about 23 cm from thexiphoid process and carried the incision down through the subcutaneoustissues to the level of the fascia. The fascia was opened in the uppermidline and Onel clamps were placed on the fascia. The peritoneum wasentered bluntly under direct visualization and stay sutures of 0 Vicrylwere placed on the fascial edges. A small Raad wound protector wasplaced and then a 12-mm Bruna cannula was introduced as well. The abdomenwas insufflated with carbon dioxide. Then under direct laparoscopicvisualization, we performed a left-sided TAP block in the usual fashion. We utilized 40 mL of 0.5 percent ropivacaine mixed with 20 mL of saline. Ultimately, so we had a mixture and then we injected this 10 mL at a timein three different spots, first the left side, then the right side. Thet hree spots were from just below the costal margin just above the anteriorsuperior iliac spine approximately midway in between by injecting the localanesthetic into the transversus abdominus plane to perform the local tapblock with ropivacaine. This was first performed on the left side and thenon the right side. We then introduced our trocars, a 12 mm trocar wasplaced in the right lower quadrant about 10 cm from the supraumbilicaltrocar, a 12 mm trocar was placed near the left midclavicular line about 10cm away from the supraumbilical trocar and a 5 mm trocar was placed lateraland above that by abo ut 10 and 3 cm respectively. Once those trocars wereplaced, the patient was placed in reverse Trendelenburg position. Weanesthetized the skin, subcutaneous tissue and fascia in the subxiphoidposition, introduced a 5 mm trocar and removed this and ultimately placed aNathanson retractor in the left lobe of liver to retract the left lobe ofliver out of harm's way. At this point, we had good visualization of thestomach and we began mobilization. We chose a convenient spot near thejunction of the antrum and the body of the stomach and started to take downthe gastrosplenic ligament. We opened the gastrosplenic ligament at thegreater curvature and continued to march cephalad along the greatercurvature until we had completely mobilized the body and fundus of thestomach all the way up to the gastroesophageal junction. Once we hadmobilized this, we mobilized the stomach first laterally off the spleen andthen posteriorly off the retroperitoneum and left francine of the diaphragmuntil we had defined the gastroesophageal junction very nicely. At thatpoint, we started to dissect distally taking down portions of thegastrocolic ligament along the antrum towards the pylorus until we hadcompletely mobilized the stomach and the stomach was attached only by theperipyloric attachments as well as the lesser curve. At this point, Imarked the stomach on the anterior wall about 1 cm from thegastroesophageal junction and again about 3 cm from the greatest deflectionof the angularis incisura on a radial arc toward the central portion of thestomach. Once those two areas were marked, we placed our small standardbariatric clamp into the abdominal cavity and fed the stomach through theclamp symmetrically. Looking at both the anterior and posterior de santiago, wesplayed out the stomach until the clamp was in good position and theanterior and posterior de santiago of the stomach were well-approximatedsymmetrically. Once we did that, we made sure the orogastric tube passedthrough the gastric tube into the antrum and we utilized the 60-mm 10-20 Mediaelon stapler first with one gold load followed by three blue loads untilwe had completely transected the sleeve gastrectomy from its specimen. Itshould be noted we did give glucagon part way through the case to relax thestomach. There was no evidence of any significant bleeding. The patientwas flattened. The left upper quadrant was flooded and a leak test wasperformed which was negative. The orogastric tube was removed. Wesuctioned about *------* mL of serosanguineous fluid from the left upperquadrant. There was no evidence of significant bleeding. We had felt clare twe got as much fluid as possible. We then removed the Kathy retractorand we grasped the stomach and removed the specimen. We removed all thetrocars under direct laparoscopic visualization, desufflated the abdomen,closing the periumbilical incision at the fascial level with [id number] suture of 0 Vicryl on UR5 needle and tying the previouslyplaced stay sutures to one another. Once that had been completed, weclosed all the trocar sites at skin level with buried interrupted shortrunning segments of Monocryl. We applied all the appropriate dressings andtook the patient to the recovery room in stable condition.DICTATED BY: Delio Gallardo, MDDictated: 08/29/2020 12:15DT: 08/29/2020 12:20Job #: [id number]: [facility] computer generated reports are not confirmed orauthenticated unless they are signed by the providerElectronically Authenticated by:DELIO GALLARDO MD On 08/29/2020 04:50 PM EDT Name Value Range Interpretation Code Description Data Iman rce(s) Supporting Document(s) ID Date Data Source [id number] 08/31/2020 02:11:41 PM EDT [place], [place] [address]Tel# SURGICAL PATHOLOGY REPORTPatient Name:EMILIO LEVINE:1970Received:08/30/2020Accession #:[id number](s) Received: A: Portion of stomachClinical Diagnosis and History: Morbid obesity. DIAGNOSIS:PORTION OF STOMACH BENIGN GASTRIC TISSUE WITH NO SIGNIFICANT PATHOLOGICABNORMALITY. GROSS DESCRIPTION: Specimen received in formalin labeled "portion of stomach" is a portionof stomach measuring 17.0 cm along the greater curvature and stapled alongthe opposite margin. There is minimal attached fat at the greatercurvature. The serosa is yellow-castaneda and glistening. The wall measures0.6 cm in thickness. The lumen contains residual hemorrhagic material. It is lined by hernandez-castaneda glistening mucosa with the usual rugae. No focallesions are identified. Sections are submitted with sections of themargin in cassette 1 for microscopic examination. (2 blocks) lmls/tbsReported: 08/31/2020Electronically Signed Out By Ky Almonte MD [facility] [place] [address]Technical component performed at [facility], Histopathology, [address] [place] [address], [id number].Reported at [facility], [address] [place] [address], Formerly [facility].This report may include immunohistochemical or in-situ hybridizationresults. Testing was developed and the performance characteristicsdetermined by [facility], as required byCLIA '88. The FDA has determined that approval for specific use is notnecessary for clinical use. The quality of Hematoxylin and Eosin stainsand as applicable, for all immunohistochemical and/or special stains,including positive and negative controls, were reviewed and consideredappropriate.ICD codes: E66.01CPT4 codes: A: 72973O Name Value Range Interpretation Code Description Data Iman rce(s) Supporting Document(s) ID Date Data Source [id number] 08/29/2020 09:22:49 AM EDT [facility] Name Value Range Interpretation Code Description Data Iman rce(s) Supporting Document(s) POC GLUCOSE 221 mg/dL (70-99) H [facility] PERFORMED BY CLINICAL STAFF ID Date Data Source [id number] 08/29/2020 08:11:58 AM EDT [facility] SPEC EXP DATE 09/01/2020PATI ENT ABO/Rh A POSITIVEANTIBODY SCREEN NEGATIVETESTING SITE PERFORMED AT [address] [place] [address] Name Value Range Interpretation Code Description Data Iman rce(s) Supporting Document(s) TYPE AND SCREEN [facility] PATIENT ABO/Rh A POSITIVE ID Date Data Source [id number] 08/29/2020 07:18:19 AM EDT [facility] Name Value Range Interpretation Code Description Data Iman rce(s) Supporting Document(s) WBC 8.2 10*3/uL (4.1-11.0) [facility] [place] RBC 4.46 10*6/uL (4.00-5.40) [facility] HGB 12.9 g/dL (12.0-16.0) [facility] HCT 38.2 % (36.0-47.0) [facility] MCV 85.6 fL (80.0-95.0) [facility] MCH 29.0 pg (27.0-32.0) [facility] MCHC 33.9 g/dL (32.0-36.0) [facility] RDW 14.9 % (10.5-14.5) H [facility] PLT 355 10*3/uL (150-450) [facility] MPV 8.1 fL (7.1-10.7) [facility] ID Date Data Source [id number] 08/29/2020 06:50:47 AM EDT [facility] Name Value Range Interpretation Code Description Data Iman rce(s) Supporting Document(s) POC GLUCOSE 213 mg/dL (70-99) H [facility] PERFORMED BY CLINICAL STAFF ID Date Data Source Rapid Strep (Priyanka Strep A+ LISBET) 08/25/2020 10:57:25 AM EDT eCW1 ([facility]) Name Value Range Interpretation Code Description Data Iman rce(s) Supporting Document(s) YES Internal Controls Perform ed (Y/N) eCW1 ([facility]) NEGATIVE Rapid Strep (Priyanka Strep A+ LISBET) eCW1 ([facility]) NEGATIVE Result (Positive/Negative) eCW 1 ([facility]) ID Date Data Source [id number] 08/24/2020 12:00:00 AM EDT [facility] Name Value Range Interpretation Code Description Data Iman rce(s) Supporting Document(s) SARS coronavirus 2 RNA [Presence] in Res piratory specimen by SREEDHAR with probe detection [facility] This lab was ordered by Charis Arzola and reported by [email or web address]. ID Date Data Source [id number] 08/23/2020 11:12:05 AM EDT eCW1 ([facility]) Name Value Range Interpretation Code Description Data Iman rce(s) Supporting Document(s) Prothrombin time (PT) 26.6 PROTHROMBIN TI ME eCW1 ([facility]) INR in Platelet poor plasma by Coagulation assay 2.38 INR eCW1 ([facility]) ID Date Data Source Basic Metabolic Profile (BMP) 08/23/2020 11:11:57 AM EDT eCW 1 ([facility]) Name Value Range Interpretation Code Description Data Iman rce(s) Supporting Document(s) 292 GLUCOSE, FASTING eCW1 ([facility]) 13 BLOOD UREA NITROGEN eCW1 ([facility]) 0.84 CREATININE FOR GFR eCW1 ([facility]) > 60.0 GLOMERULAR FILTRATION RATE eCW 1 ([facility]) 135 SODIUM LEVEL eCW1 ([facility]) 9.1 CALCIUM LEVEL eCW1 ([facility]) 28 CARBON DIOXIDE LEVEL eCW1 ([facility]) 4.4 POTASSIUM SERUM eCW1 ([facility]) 102 CHLORIDE LEVEL eCW1 ([facility]) ID Date Data Source [id number] 08/23/2020 11:11:50 AM EDT eCW1 ([facility]) Name Value Range Interpretation Code Description Data Iman rce(s) Supporting Document(s) Hemoglobin A1c/Hemoglobin.total in Blood 9.6 HEMOGLOBIN A1c eCW1 ([facility]) HEMOGLOBIN A1c ID Date Data Source [id number] 08/09/2020 12:44:00 PM EDT [facility] DATE OF EXAM: 08/09/2020UPPER GI SERIES INDICATION: Preprocedure workup for gastric sleeve COMPARISON: None TECHNIQUE: Digital Radiography was utilized for this exam. A single supine film of the abdomen was obtained. Subsequently, the patient was observed to swallow barium under fluoroscopic control. Multiple spot films of the esophagus, stomach, and duodenum were obtained. Subsequently, routine images of the stomach and duodenum were obtained. FINDINGS: Preliminary manager of tax film of the abdomen shows a large amount of stool seen throughout the colon. Surgical clips noted in the right upper quadrant. The patient swallowed barium without difficulty. The esophagus appears normal and there is no evidence of hiatal hernia or reflux however tertiary contractions with delayed esophageal motility noted. Multiple projections of the stomach demonstrate it to be normal in size, shape, and position with a normal mucosal pattern. Barium flows readily into the duodenal bulb and into the duodenum. The duodenal C-loop appears unremarkable. Radiation Exposure Time: 0.7 min. Number of images obtained: 54 IMPRESSION: Tertiary contractions noted with slow esophageal motility. The remainder of the exam is unremarkable. This procedure was performed by Sue Dorantes [facility] Professional interpretation performed at [facility] .End of diagnostic report for accession: [id number] Interpreted: Mayte Qiu MDTranscribed: 08/09/2020 12:39 PMSigned: 08/09/2020 12:44 PM Mayte Qiu MD [facility] # [id number] BILL # [id number] 2IRV Name Value Range Interpretation Code Description Data Iman rce(s) Supporting Document(s) ID Date Data Source [id number] 08/08/2020 11:05:05 AM EDT [facility] Name Value Range Interpretation Code Description Data Iman rce(s) Supporting Document(s) Progress Note [facility] HKUHLi3oHuTADlRz68/LXTkjIICky9LoWGirNIo6BWzoTCNiH3EgLIU9cA7fKGC3UJsWTtZgUoOoAEP9 lbm [file] ogNati9r1yr1JQCFoy6Dc88pAt6am9t5v6pG99Rh8/bjv+u+5wf0ndx0Q3DA7uFYlq2E4rvQMxrUS+MAGAÑA [file] ICAgICAgICAgICAgICAgICAgICAgICAgICAgICAgICAgICAgICAgICAgICAgICAgICAgICAgICAgICAg ICAgICAgICAgDQogICAgICAgICAgICAgICAgICAgIC AgICAgICAgICAgICAgICAgICAgICAgICAgICAgICAgICAgICAgICAgICAgICAgICAgICAgICAgICAgIC AgICAgICAgICAgICAgICAgICAgDQogICAgICAgICAgICAgICAgICAgICAgICAgICAgICAgICAgICAgIC AgICAgICAgICAgICAgICAgICAgICAgICAgICAgICAg ICAgICAgICAgICAgICAgICAgICAgICAgICAgICAgDQogICAgICAgICAgICAgICAgICAgICAgICAgICAg ICAgICAgICAgICAgICAgICAgICAgICAgICAgICAgICAgICAgICAgICAgICAgICAgICAgICAgICAgICAg ICAgICAgICAgICAgDQogICAgICAgICAgICAgICAgIC AgICAgICAgICAgICAgICAgICAgICAgICAgICAgICAgICAgICAgICAgICAgICAgICAgICAgICAgICAgIC AgICAgICAgICAgICAgICAgICAgICAgDQogICAgICAgICAgICAgICAgICAgICAgICAgICAgICAgICAgIC AgICAgICAgICAgICAgICAgICAgICAgICAgICAgICAg ICAgICAgICAgICAgICAgICAgICAgICAgICAgICAgICAgDQogICAgICAgICAgICAgICAgICAgICAgICAg ICAgICAgICAgICAgICAgICAgICAgICAgICAgICAgICAgICAgICAgICAgICAgICAgICAgICAgICAgICAg ICAgICAgICAgICAgICAgDQogICAgICAgICAgICAgIC AgICAgICAgICAgICAgICAgICAgICAgICAgICAgICAgICAgICAgICAgICAgICAgICAgICAgICAgICAgIC AgICAgICAgICAgICAgICAgICAgICAgICAgDQogICAgICAgICAgICAgICAgICAgICAgICAgICAgICAgIC AgICAgICAgICAgICAgICAgICAgICAgICAgICAgICAg ICAgICAgICAgICAgICAgICAgICAgICAgICAgICAgICAgICAgDQogICAgICAgICAgICAgICAgICAgICAg ICAgICAgICAgICAgICAgICAgICAgICAgICAgICAgICAgICAgICAgICAgICAgICAgICAgICAgICAgICAg RBWpJPUyMQIbDZByLUFfUPFaLHh4A3srHUZnUSCiXY 9sGSa2Up0+JTfYTwVcPFL2xaHscL6GUC6cu8DeMQlsLUExq0JvPJt1UR2UBPHfGGboER1JQWaawr8KMA EbKTZjrRSUg8ypJcPzXBL1BDTzYjeuRY1IGMKhN3vhviWuLWImSNUANOgsOWNCPQirRZRXFXVrZPIfBt NvCcVzDZFfYWFvJIAGIBC7LKHcIqOwOIHfENGeRQ5V TQHbX319cwJtAH1UTl8NXoSwFO2jnr2RAnAsKULzPbyUWrj9GSbpCO8JyGWsySVmRaEwUZEIXvJxX3js s0AgDptcTOFSXLmaPK1Ql7YolZFkSYx+Vb9KVW7co5NiEHoxBfWtYH0ezu1GYFnRGkNkX0FmaBakGZDd n9vyNYNtZN2vxXSjYVX2TRStlQpwWHLIu3CyqMQbmY EsaPL8CfB5NbRsPuGjVOR4HBJiFH9gOZhlOP2KSZH4FCuhLWGyVEMeE1xFDkSlNSJxWxZnsLljKO3RSn ZdA4GazwNhfGImTeXyBDWNHt0+DCexlxIqBncNEmO4EATio8XsETf8UD8YOYXqBAtuGY4OMFDcjM2mHJ ziOL0QEeTvRVBhJOYQFcAtC45sjRFmWOi4Y9DmGjFn ZGVkRmlsZXMgPDwvTmFtZXMgWyBdDQogID4+ID4+HPlhEQ1PUKtcrgPhPHIpMn2WHYXpQJIbQH1wEIJg LBUxS3B2wWvkBIXQIeQpP2cvczskMA1tFOGfQ065tRnzroRkZJT4DDZsIk4NMGRcEUO4MNWfvKVgPbHj WLURVEkgVN3RjCJaVEY4gC9fAGmrXWVqKQEbO0fJJx RluNapAP28lCtkdvPgaADqKLs+Iw5NNO8dc9MdXUr8rnUbZXmpVBO6CAdqZNNtXXPhUULqTNL4UBS5VB NAUsBtPMOgGWUuYYinMNNyYERaqz3JTKJqYEIwUVI9ONFoJUKpOQFyOGrbYKFyRSFjYrxhHAInQOUdAM 4NSbIcOKEcWPUhRWrjFFEdGIVexs4AVVXpMCRqBuW5 MlEpFHYvXQEdFEegJTLfSLFoVxCoHIRyFVDxPX6PWcXkOOEuLKGeNannFNUrQDIrej9ERBKuCEQhIeB1 NBAhYHQdVGWtBDlpSPHuPYJ2PYYxCTEuXZTnKN6NUyVkSHFkKYokXFwzMUMjIRWcnk2FEIReADVoWon5 KqZcKIRhZPWfGVrwAKUbACArJFC1FKFnNYWzMZ5GWl UiGVPnDRI9KFAfOVJyPCXdmg9AMTGwRIZfSDs2ClSbFOCxXEDkHZmzCDRmTUM1IEUzMTOpVHShHF6REa OmVBPaVTpgKLksNRAuWRAexl9MBAMgMZOtDGY1CGJhEZYiFUFdVQmwDMLbFIYpDVL2VDDvUAArEG8KRb RcFQEnKmYkHzwtHSHcKTHvbb4AKBReFEPlLtF5CLKf UZQvDAQfVErfRPPtUYB9MgN7QDZaFVCnJA3WNaTiHZFsExH6YzOyWANqVPZgsm9CUDXqULOqBDFnBEQg MWMbQUAwTKjuZKGuZLN3PJyeRVLhCWWsIL0YPbOjQKEzXcC4SnDjQCIrFKZhwz7FOZHtRCZtHYm2NwLs ODQcLSTqOMrzZHJsQFX8JaxzPWAkSAEkLO6UCnRoZC YpKpj7RDnjBGZuIIDszm1QHIBlVMFgAscsGkOuOJAsTVYiGAwaBHHjNZC9OPd8FKLwMEJhOS2HKlUyNP GlRdqyMlCdAPTkVHNhnf3IKGZgXUUdGGW2BiCdOOXePEBeFJpdEGHzRQC6CMS1DSWyVQYcIK5BNpNjFV PkPmg2VyCsSEYvYRZhfi2RZYKaPOJ4QUC0IHHhQPTy MURaXReiORJzCOFnRUY2IXDxYRLuSN5UEcGbBRVmTGN4RNVsGPUsLNTxfg8SGIEiUXL9TGz9IpEmVHWd FHQbULb9lyTblNPuRKw6DU9IG5UnhxHzIwvLIa9Xm474UYL7WPIwRn3ES3lkZp5fKLJpQHHISh8KOAp0 LuvyEIMcXBZfD6KjLTBnGZMqBSSmSSCoRJVsTBXtTm I+HJimFBD6DJRhDCDrIzMxIlC7MPQwVADiVZD4O1EeBMH9Cf3tHSVQUu7+DQpzdGFydHhyZWYNCjQxOT p5XZvzPUIRAk8V ID Date Data Source [id number] 07/22/2020 09:17:21 AM EDT [facility] Name Value Range Interpretation Code Description Data Iman rce(s) Supporting Document(s) Progress Note [facility] MFWXGb9gLuLIAwTu18/ZTYvvLWJlk8XdTJyfLIo1DAcgRIAeM8WmLGI6rT7wKBZ2BTzMQqMhYpPeKRNg lbm [file] Kiu1ZlBlXBF2FqI+WN1dRAy+Lc6Xc1NgdkO1jePfXEfvMXI5Wz6LYRNVF9NDWh== ID Date Data Source [id number] 07/06/2020 10:23:44 AM EDT [facility] Name Value Range Interpretation Code Description Data Iman rce(s) Supporting Document(s) Progress Note [facility] SILCKk8pXpDBUhVc93/YHQkwGFNri1JjUNzsHVt1MQphJHLmL4GuXMN0dC2qOAS5ZCnKWfTuCdLtOWV5 lbm [file] bjWERl7C50HlenQecnSliHVDswyI57lY/OvvEwSltQksMmg4Pd+85PqzfOtHLPoqON6/d1xIWDQ+I/oJsué [file] ICAgICAgICAgICAgICAgICAgICAgICAgICAgICAgICAgICAgICAgICAgICAgICAgICAgICAgICAgICAg ICAgICANCiAgICAgICAgICAgICAgICAgICAgICAgIC AgICAgICAgICAgICAgICAgICAgICAgICAgICAgICAgICAgICAgICAgICAgICAgICAgICAgICAgICAgIC AgICAgICAgICAgICAgICANCiAgICAgICAgICAgICAgICAgICAgICAgICAgICAgICAgICAgICAgICAgIC AgICAgICAgICAgICAgICAgICAgICAgICAgICAgICAg ICAgICAgICAgICAgICAgICAgICAgICAgICANCiAgICAgICAgICAgICAgICAgICAgICAgICAgICAgICAg ICAgICAgICAgICAgICAgICAgICAgICAgICAgICAgICAgICAgICAgICAgICAgICAgICAgICAgICAgICAg ICAgICAgICANCiAgICAgICAgICAgICAgICAgICAgIC AgICAgICAgICAgICAgICAgICAgICAgICAgICAgICAgICAgICAgICAgICAgICAgICAgICAgICAgICAgIC AgICAgICAgICAgICAgICAgICANCiAgICAgICAgICAgICAgICAgICAgICAgICAgICAgICAgICAgICAgIC AgICAgICAgICAgICAgICAgICAgICAgICAgICAgICAg ICAgICAgICAgICAgICAgICAgICAgICAgICAgICANCiAgICAgICAgICAgICAgICAgICAgICAgICAgICAg ICAgICAgICAgICAgICAgICAgICAgICAgICAgICAgICAgICAgICAgICAgICAgICAgICAgICAgICAgICAg ICAgICAgICAgICANCiAgICAgICAgICAgICAgICAgIC AgICAgICAgICAgICAgICAgICAgICAgICAgICAgICAgICAgICAgICAgICAgICAgICAgICAgICAgICAgIC AgICAgICAgICAgICAgICAgICAgICANCiAgICAgICAgICAgICAgICAgICAgICAgICAgICAgICAgICAgIC AgICAgICAgICAgICAgICAgICAgICAgICAgICAgICAg ICAgICAgICAgICAgICAgICAgICAgICAgICAgICAgICANCiAgICAgICAgICAgICAgICAgICAgICAgICAg ICAgICAgICAgICAgICAgICAgICAgICAgICAgICAgICAgICAgICAgICAgICAgICAgICAgICAgICAgICAg ICAgICAgICAgICAgICANCjw/kYAtR6otxNXhniW3V6 wjDw5THc4NKX0bw3VjJYNsZNdbjgOxYljCOhBcMLZnQwxRGmy3SNdoQQ4BvVOrR5HpT3AnEQnnVC7GWO XiDFSvyILpOUDgVBLyTpJ3JSCdBDzmBQ6MgGLfLZzrGHReSQNbHhQsHIPrUGTdXYNdYUItMNPNNWSeOX NvRvVwACQpGXRwDEcfMGJDHWZ2AMIlXuUgNORcMTGt DbFeACOCUP0ILaWvP3VtyX30CGRrVCg+Fc3BMB2jb3PgIMc0AIDeJM0oow5WYYtQDgHtE3RrbgO1GMLl VFZiDh4SRTKyMZRbgBE0NSWbHWQYTsXsM0IzpB78TFEWTu8+CHzglrIwPkcDQyYkHPAbe2XjIPa1FH8B VVEbFLs1gTGsCBWaY9Fvm3JvGi66XDBeHryaN3Qqad ppzQUWPJmhN9iknzPos5NoCGMLUZT1ZUbyQvckFjQdJBTnLDsqOIJVRJbXIhDzB3Erk4HpFdR6LYMuRd KoYQaoPGFhTnB4JW95bSacCD2ZPKTdWUDxPU96TQWvOAFeVg2MXq0RWzCpEA6lqp3QFWBqTCAlHulILn n3DIclXY7PhLXbV7SccQEhg4uKImGdZ1GKEMY8JDKw Il6YLGGgAcUrQYBoCHliEU0iZYWcGQVJkYxbipZ2MV1FRY1qpgXrOC6WDsHeEf5pVh9JRzZlU3DdP2Bx JHVxBJYWCHtsAD1QHYdpKR7rLA8Fl4IMfVRhuX9tlb3QMYCfLDNcGktywz5FOesyJ1I0hSdbIMYkRIDb NZVWVSfcHZ2FAYLtJUG6JMQwDSPgBPYJSaIoR87uXR 7UL1Ize46dZaM6NDPdQaHyPCyjOR49bLuqchWxdTHoeXnpRL7HHd6+DQplbmRvYmoNCnhyZWYNCjAgND JXKgFuBQWpMPFcEZEhHvQ6EfAeVp6ONQAnIODfWFYdFySdJVIaMETqJIswBTUtLWZ4NFC2HEZbYLZqBH 2INwVuAUVdLXZ2BRTjDIOtBJYixx5HMQGpIAAeDCC3 MgGkYKDdWADcBHjoKRVpRLQnWoA2GSHePIFqJS9QCkIuWFEwWDZ2RVQaYSQiXUYsgp8VOZAhRTJkFkdk EhRvWSWhEDKiSQbsOXYuGXA9LLL8MDMgBYLcTX2VDqQjGVNeTBo7TfbcYSGaMQIcud1ZXEYgESHlUYg6 PPTrFYZwJOTrPZtnQASeMNVcYiTgQNWoLWXfOW3KCt FcGDRuCOX5NUTgRJYgIQAsxf9TTSKeBUTnCzA4PJEkVVDsDHQoCJsxWPCrFOT4PuV3MIOvVLFqKD5XSa ZrXPKdEBs2YtBvZJJpDIYylb0CQLQzDYIzCPL1VrIwWXUdFCNoRZfmXIVsEFHtIbUiLAYfICHiKF9MFe DrFRHaOqL1KfWfQIMsCCZyvq6PQVKjERTzFPXqUrFa UOGeMDKfLFtnDTVnXAK3WvZ6UAIfJJHhWC5ZWpDcNXXzGhk4QhWdVQVnZKWbod8MISNrEJYbSed6ABBy LAKxCVQuFLhzKXMfVVE2NYS4WARjDOBzDT4AHsQiYMFtVtz0RuRjGRWjTOUoew7IMHTpOBWnDYV1PRIt XJPiIMQmXVbtCNXlDRB2ZGniKSLcQXUrBT2FUvLpFO GuVqCdJwTjXRYmHSBfsw2OQXKzFFJxAYBmZwWfPHTgDKNkITobZCPgYDVoPfZ3IJTuFAUiTG7WRuGiVS IfQlV6ORDgEEFnTOZupk1EABTgJUF8Mnw2AhRbNLSmTXXsAEpqOLLrSEKnMJO8WENrZUWgYF5YCwTzNL WySZOrSrjyEQNtOJZjkp7XFYFnRKT6FfHyBpUfUUAz QNJmJUleJFAtQOOaDlijKISpBJWgWH3FPgVlSZZkRKR4HDalCWWbICYpvy7ZTTYoFCD8YJqwBBAxFINk EARzRNdlMCLvMBB3YMcdDTApMCYjYH9LFgEzXTJjYQB6WESbVGEtNSThka6YGWGdAJR3CcKyJEFzODTv EIDbYYwjNNFsUUW7TRylZMIsOAQrTW6XKbEuAXWmHS nnHmCwXVGgUHLiig4KcYVfiNqvfu8SNGzLFn0YdBfwDSCuILuvHy3ipJM1MxMzBIWNQg5OyhYwWLJgMX ZBKZqbHFBzVMhyQkJeMDZtR3XwCBK6LDDaZpPyHRCxNKR2IEL8WsRkFwX6RFEfX4PiN8ScIPTeEkyfWH LeZSX1JsWwJODlZLPxFQN+OJ6bGSg+Qh0Ju9SheuP2hgGzYVs2BfL2UK2VQQIVP9TTTm== ID Date Data Source [id number] 06/12/2020 12:36:01 PM EDT [facility] Name Value Range Interpretation Code Description Data Iman rce(s) Supporting Document(s) POC GLUCOSE 178 mg/dL (70-99) H [facility] PERFORMED BY CLINICAL STAFF ID Date Data Source [id number] 06/12/2020 10:17:53 AM EDT [facility] Name Value Range Interpretation Code Description Data Iman rce(s) Supporting Document(s) PT 14.0 s (9.2-11.9) H [facility] PERFORMED AT [address] [facility] [address] INR 1.36 [facility] SUGGESTED THERAPEUTIC RANGES USING INR F ORSTABILIZED ANTICOAGULATED PATIENTS:STANDARD DOSE THERAPY INR 2.0-3.0 DVT, PE, PREVENT DVT OR EMBOLISMHIGH DOSE THERAPY INR 2.5-3.5 PREVENT EMBOLISM FROM MECHANICAL HEART VALVE ID Date Data Source [id number] 2020 10:15:00 AM EDT [facility] Name Value Range Interpretation Code Description Data Iman rce(s) Supporting Document(s) Laboratory test finding (navigational concept) Laboratory test r esult Normal (applies to non-numeric results) [facility] ([facility]) A false negative result may occur if a s pecimen is improperly collected, transported or handled. False [...] pathogens. DISCLAIMER: Testing was performed using the [employer] / ?.?? SARS-CoV-2 test. This test was developed and its performance characteristics determined by [employer] / ?.??. This test has not been FDA cleared [...] the authorization is terminated or revoked sooner. ID Date Data Source [id number] 2020 10:15:00 AM EDT [facility]) Name Value Range Interpretation Code Description Data Iman rce(s) Supporting Document(s) Coronavirus 2019 Nasopharygeal Laboratory test result [facility] ([facility]) Laboratory test finding (navigational concept) Laboratory test r esult Normal (applies to non-numeric results) [facility] ([facility]) A false negative result may occur if a s pecimen is improperly collected, transported or handled. False [...] pathogens. DISCLAIMER: Testing was performed using the [employer] SARS-CoV-2 test. This test was developed and its performance characteristics determined by [employer] / ?.??. This test has not been FDA cleared [...] the authorization is terminated or revoked sooner. ID Date Data Source [id number] 05/24/2020 01:02:00 PM EDT [facility] ([facility]) Name Value Range Interpretation Code Description Data Iman rce(s) Supporting Document(s) Laboratory test finding (navigational concept) Laboratory test result [facility] ([facility]) Testing was performed using the charlene(R) SARS-CoV-2 test. This test was developed and its performance characteristics determined by [employer]. This test has not been FDA cleared [...] detected) result in this assay. Performed at: [facility] [id number] Lead Carpenter: Alla Mcgregor MD, Phone: [phone] Not Detected ID Date Data Source [id number] 05/24/2020 12:00:00 AM EDT [facility] Name Value Range Interpretation Code Description Data Iman rce(s) Supporting Document(s) SARS coronavirus 2 RNA [facility] This lab was ordered by [facility] and reported by [facility]. ID Date Data Source [id number] 05/02/2020 09:45:00 AM EDT [facility] ([facility]) Name Value Range Interpretation Code Description Data Iman rce(s) Supporting Document(s) Glucose, Fasting 205 mg/dL 70-100 Above high normal [facility]) Blood Urea Nitrogen 13 mg/dL 7-18 Normal (applies to non-nume davis results) [facility]) Creatinine For GFR 0.73 mg/dL 0.55-1.30 Normal (applies to non -numeric results) [facility]) Glomerular Filtration Rate Laboratory test result Normal (applies to non- numeric results) [facility]) <content>Units are mL/min/1.73 m2</content>
<content></content>
<content>Chronic Kidney Disease Staging per NKF:</content>
<content></content>
<content>Stage I & II GFR >=60 Normal to Mildly Decreased</content>
<content>Stage III GFR 30- 59 Moderately Decreased</content>
<content>Stage IV GFR 15-29 Severely Decreased</content>
<content>Stage V GFR <15 Very Little GFR Left</content>
<content>ESRD GFR <15 on ASSISTANT PROFESSOR OF GEOGRAPHY</content>
<content></content> Sodium Level 138 meq/L 136-145 Normal (applies to non-numeric res ults) [facility]) Potassium Serum 4.6 meq/L 3.5-5.1 Normal (applies to non-numeric results) [facility]) Chloride Level 105 meq/L 98-107 Normal (applies to non-numeric r esults) [facility]) Anion Gap 5 meq/L 8-16 Below low normal [facility] ([facility]) Calcium Level 9.0 mg/dL 8.5-10.1 Normal (applies to non-numeric re sults) [facility]) Carbon Dioxide Level 28 meq/L 21-32 Normal (applies to non-num jem results) [facility] ([facility]) ID Date Data Source [id number] 05/02/2020 09:45:00 AM EDT [facility] ([facility]) Name Value Range Interpretation Code Description Data Iman rce(s) Supporting Document(s) Neutrophils % 50.9 % 36.0-66.0 Normal (applies to non-numeric re sults) [facility] ([facility]) Lymph % 39.5 % 24.0-44.0 Normal (applies to non-numeric resul ts) [facility] ([facility]) [place] % 5.5 % 0.0-5.0 Above high normal [facility] Eos % 2.9 % 0.0-3.0 Normal (applies to non-numeric resul ts) [facility] ([facility]) Baso % 0.9 % 0.0-1.0 Normal (applies to non-numeric resul ts) [facility] ([facility]) Neutrophils # 3.5 10 1.5-8.5 Normal (applies to non-numeric re sults) [facility] ([facility]) Immature Granulocyte % 0.3 % 0-3.0 Normal (applies to non-n umeric results) [facility]) [place] # 0.4 10 0.0-0.8 Normal (applies to non-numeric resul ts) [facility] ([facility]) Lymph # 2.7 10 1.5-5.0 Normal (applies to non-numeric resul ts) [facility] ([facility]) Baso # 0.1 10 0.0-0.2 Normal (applies to non-numeric resul ts) [facility] ([facility]) Eos # 0.2 10 0.0-0.5 Normal (applies to non-numeric resul ts) [facility] ([facility]) ID Date Data Source [id number] 05/02/2020 09:45:00 AM EDT [facility] ([facility]) Name Value Range Interpretation Code Description Data Iman rce(s) Supporting Document(s) White Blood Count 6.9 10 4.0-10.0 Normal (applies to non-numeri c results) [facility] ([facility]) Red Blood Count 4.26 10 4.00-5.40 Normal (applies to non-numeric results) [facility] ([facility]) Hemoglobin 12.3 g/dL 12.0-15.5 Normal (applies to non-numeric resul ts) [facility]) Hematocrit 37.5 % 36.0-47.0 Normal (applies to non-numeric resul ts) [facility]) Mean Corpuscular Hemoglobin 28.9 pg 27.0-33.0 Norm al (applies to non-numeric results) [facility] ([facility]) Mean Corpuscular HGB Conc 32.8 g/dL 32.0-36.5 Normal (applies to non-numeric results) [facility] ([facility]) Mean Corpuscular Volume 88.0 fl 80.0-96.0 Normal ( applies to non-numeric results) [facility] ([facility]) Red Cell Distribution Width 12.8 % 11.5-14.5 Norm al (applies to non-numeric results) [facility] ([facility]) Platelet Count, Automated 299 10 150-450 Normal (applies to non-numeric results) [facility] ([facility]) Nucleated Red Blood Cell % 0.0 % 0-0 Normal (applies to n on-numeric results) [facility] ([facility]) ID Date Data Source [id number] 04/20/2020 02:23:00 PM EDT [facility] ([facility], ) Name Value Range Interpretation Code Description Data Iman rce(s) Supporting Document(s) Laboratory test finding (navigational concept) Laboratory test result [facility] ([facility], ) ID Date Data Source [id number] 04/04/2020 12:00:00 AM EDT [facility] Kevin Youssef MD Patient Name: CHAD LEVINE1 [facility] Date of : 1970Suite Date of Exam: 04/04/2020[place] [id number]#: Fax: [phone] EXAM: MRI KNEE RIGHT WITHOUT CONTRASTCLINICAL INFORMATION: Pain.3T multiplanar MRI imaging of the right knee was obtained using varioussequences.There are no prior right knee MRI examinations for comparison. Prior tibiaand fibula MRI of 08/24/2018 showed soft tissue edema without evidence ofan osseous abnormality.The anterior and posterior horns of the medial meniscus are within normallimits. The anterior and posterior horns of the lateral meniscus arewithin normal limits. The anterior and posterior cruciate ligaments areintact. The quadriceps and patellar tendons are intact. The medial andlateral collateral ligaments are intact. The medial and lateral patellarretinacula are intact. There is a minimal joint effusion. There is noBaker's cyst. There is mild thinning of the articular cartilages. Themarrow signal is within normal limits. There is slight parapatellar plica.IMPRESSION:There is no evidence of acute internal derangement. There is mildchondromalacia. Findings as described above.Accredited by the [employer] in [place].LUZ Baeza/Devon you for referring EMILIO LEVINE to our office. Electronically Signed - CHE BROOKE DO 04/04/20 13:24 Name Value Range Interpretation Code Description Data Iman rce(s) Supporting Document(s) ID Date Data Source [id number] 03/03/2020 01:00:39 PM T [facility] Name Value Range Interpretation Code Description Data Iman rce(s) Supporting Document(s) Progress Note [facility] KFGSKz7oZpYHJoYq58/SMOlzRWNtl7LcSRmrCWc4MAafMWLzV5XkDIV4aT0kVZP7ESuGOdDoTzNiIUL0 [facility] PfRvmZCzSxGSTlMrtLZdTtZPoeZfvcvSZePP9WoSI4NZVyC91jXBCnDJMmV1DfSBA1Wlo+Iy2FHGRqeP UlUR7NQwhY8Y4DbnzOGj2uEL+goYBFX9Kynw82hOVFfRYzKR5uwcgETi1CmlsBZGDX3RUS+xSUa2HYfu 3SaykxTXNlfSsjW9xA7J9dqKl/s6qX0OmhH0S/F7+G ySbjekxhR9x9rCiUtuTltYW6HUsFMyVAqQ6n0/pTm885nTIlIWln14AEvJDFuxgCmDX4dh4ow+n0pbru tRrO7xQnBoSzP+4j9rwrT7Jz+J9++jo8o1UzekYsz5mv70IFhVhipsDnVs/nKEKhqRNhe84kzeASghiw jl2FE3E8EpCEb3TTqu2+BUwMue4YSVJX1SNLeRwt6t yLM6RxDyPDeHUFkes5iFhReRAXAfmkhZayMOlJwSFTBpmuZV81i90a/eM8jbs9Ht43RI2Xu28SHx7nQz sMFiMF8KnZKPvL0qqZjG0bc9SkK9e1j+XPRClnC/5ayR/46WcIr3bwDVJBgvUmzJWWI6IrbqrWh5V6cS CfA8jBTp0mhzG18S7Lwn4aTC0nK11TV7P4uUaoaKfq u4gEoRgd84REw5fK/NUrUK6tt5v3pSstyMk7KxV/qVF6JPcTGjyGW4QWGqlPvj8Cc+cdAGO9jEtHH0lh LmWIrnw7pufyGcBpAvmlqkfsYfDyFzyDqxFHgR1gCpUUA5euSFw3+pRywS4pVZSAEwVSoNbfK5fFgyYK pMbviypeMEGM6TFAOw3csX8ArlkO92XzCGSdfWz73n 3QRlOOK4J1o+jmRA3ZRK7kEJCLlVqsUEmvVJhw+FTBltXjvIeWVByWvBECo1TVEDTUaeohg90cPYtSWm T14rlf2ixEYqiUQHxdimMrkB7/OTpLD4/LHWtr8vUBCVxxY1hmI67tVdtDnOc9KF0cOwRgRBsMnu26Va uo/OpTMZmXZs+MATpdNskogkiZNfxJaeggZhinn+mj [file] RePSxnPfD5kc/7o20VXBNlQDmnTXM2cg/4dOr3M7nUN/kjSu+bFqcPJDgZlf+8EFZsmv+MEGZsmv+DULCE MARIA Zsmv+VFFDtRGX6Nm6vNuCRZJy+mPgbOBWfINP/iWCPtWY1texnbTAy8nrf8y3JVKJ9cLKn75uS27QsbN Josué/wgw/Mkm/1kJbmbGd41BUp+REFaW0/ygYjPzSY+W [file] SqtTt8oN/418Jb96aCMmi4DMlEShb/vp marketing services and skin/cNcUrEaHHntmOfckiIK5xHNSbsRljol3fVmWOv+rjCmzfdR fLmCbixVRaftyId6UWWfaIqjJ2x3/A3vhPbvZCKRhQ0QxGZGcxrDc6UuOijLTinrqzj/9f8ZLEb+hBN2 4O3iNFRaIP3NIJnom9oG/9EfFnBpNZiRMtT1WTlOJT tlU/PFlm7M8X9Ua3LWIGZRVguixXOdRp5ZIPfjcCSArstBI7Cvsr34kPP4/rZTAaxpTEMsrrrm/td5Y2 0Nt7MorQJ0cvP3RLxfsrz7S/NqN7Y5PbIMPod1ijY9sHjk6Ko49mYam5KReYsFxd1Mc9Vj6EH7NcHxYh RneigPJOn6ErppICzNKEjAlGtbv4xW60at64Wvvuqv gBc6vI75LWDlecCoYvOBWLD14olQrgcVIGvxabfuaEF6tM/tG0uszTHW5GSIxdmlSz9GYwB2V/ni/4o5 58KebtsTJMeoGqfz8OW9pq9z+U2y3NnDdStUHuUDJzAffzoNN/5t/ZodQ1NXIyRsObPD9n7Nw3dQcjVj fJxNodOCWUpGXTtdbChPaYv/CPYAW/dwlDsiWQhVhQ TDZxIDf3lNR3lusMJZLUuNSqiVkAIvUTOp8tsXEt+kZ6ri4Iu5d4XCpAB5PBHnpQ8Qdw9Bn3SJb5bjZ2 YypTbb85O3+H40yOcfC/oF+NosdU7E9xQdUFJvZjznNj9WDoivTx8JlaAfrlvfXOYeVnVIKqyBTboECV fZSdjECAXTCh0ay9B+gwcAO8u40n3jgdqvYarh8bDf Vlhb7pyHp5xavNFQ6JFPLqVk3mFyAc9My0ZtsvZdHLUX2A1rbeR3/jdtF8x45ZZtOE71rWmUTLHSm5ht Bwf44pkn4hf6fRcyDaZRW2c/jtQN3yx/7pK18GBBNHBRQunOxAsWgGiPQD5pj2MfsWyJjHlMRhhw+ke1 CMoaz8qT2rwcnvVhEapNhTFHMvXuuYWZ+7qR+n03yu Nr9e7ugQlNiBefiuSSQx5YaZT+v6Ul/3Uc6A4BN39Crc95f3lUa4mPOa2s9ALIpQ7HQu4VlgJ3HpjhH6 T0oR8VLT2Car1Fiok5nOopPe0KynSBx+Cn5J6AP6O21zSRjYqrtcWc/4hz3WBdZyZnxsR0Vuh5Oz06sN KUX1fyzBEIJiIMk4p7Kt03Vxu6X/DgOKh5FXgBKAfu iREfiMG3V26gqthtbZI6HttBOFBPAmcPB6lMCkZ/Ky/y7+pS5qeMcH67kBUbuvZXLFe+syh0omJAKYny 5NeCvDMhIkrmmqWvC/HHF6M7+Lee+KPov1NtcHTPLskFVlAopW5KkyutADaOJKeEdKA2o/cygR8NfQ3Kh [file] jr+Nielsen+aEkyC3QPBjJqq15RMQAK3cUeViYrb4oe4EWQRCiihrNY+tBt3LwCgpqtUCQihqySBF/4AV/A2y DSxTyj2aMr0i0RRIWSUkDl62WdJ/pnIrZ0wncb+Zl6 5/vgZ5PQBkS60qIlqNc7GebIKa+THEt0E1jebLcOx7DjmBsDmqfGdpBhFbEb2mGYWvAENDhSQggE8mWW lyC5FV65w9roN8O8uEicjZcUovFvNPChxI0VRKKtjEDTgpfo4z/qjql626dNf7XVZgXacd1cV/yFW0lb 0tRJuxbpDly0m08vheCibv4ryEP6waNKd0IXxOBcPL 9EHRLCm5vjfY6cLqK2UdaqV0MStCEszYGx+8XV9wkOMe6PJIOdoe37wC5i/28XIq7Fg7g7oHs8AQDey4 c0zP4Js9AqtFMMjkfI47/HqnzBxkspkAUC9/iKPf9ClFcac8lNxjqXLoy0ONzCuDG/ZBo/cUjcld6mVV +wtf7feEFeWLgMbQKOmMsm/54p4zzNrMYk1EVZT+Cn Oo8XFTpZ8cmcY6TVEllqhImUcIKN316y9mrU/NNPPRZwRVFJaCUkzkdon+mc4JEwEnKIIarZ1+w8r/gi vL/oo3jqp/oqX/it/VQv8Cm+9NXv3epkUIorOr8utYH3sbjKriXsDNXQiwgQJ9iXbHsde527b62Ntkw7 zTDXFMLVVC6vSJVc6z/5RBA997cu1rIgCFJNBLxtlj mI9cXRBfAL0ilbjiagHL/+rZ/geY4J5CwjmL6EiwY9q6Z6682oRloddIIdok7+RG5/HqvEFTa/yCZ+FE Oft7VN/CCcveetnfkR+PMgJdx8OOyOe9XZGSjbDzwRqRuFYCgTJAgk9bA8clHrJJlZDLlBrmPwRQeLw3 medical supervisor/ca97CjYRIygC3dEF8HCsXMFBf4u/DMxWMrYR2/ [file] CAUSE ANALYST+PbBekIpOpmpr3c8d46AyqUHhYtbuB2B7nbeBMhcI3dU7Vo5J0gQGYK1O8scG8lHIi3ZMfOSW0X9V [file] Wbfg6zkcvv8Vl7Ii5qsnkOhMfihAfiuZMSsanLKnPUsg0zZUs1lR8Ibp+vp marketing services and skin+OX34coP6KsWOMznZhrzR [file] PIZYUef/Josué+H/9UIr/OeSdRpCpQI4yAjU631muzvJji6XiZz4rKhuT+5ueKaY3HscIXJfkXw4leUHLFU [file] cDNUgpbM5UeuX0FVn9KpIimYNQuwBSrcz1rlmvJD9xhbsinRq1kTkrBheLTreJBv5rdO/Ana Laura+2qJorXp [file] +58/MfhhBXvI/cvqdO9/H0A4WR4P+kerTsZ5Uz+Yaima PMzfHe80tvgnqY74WiB+lmbiq4PBAU8nHGncSlvfFm2YU63rjxAT+VRU38wfzXWWsk+P4OsbzmOsy+IX 7jCZDxQLWIg2NxQi+DQHI9DJZ18TDgNpNHlm07sU9ki+5yzB/cITR4qzB1GBa0Ie4hshppqfoypVw/MU BP1cFb+FS5FId6JttPNxMs11EQs4ASHW1fjabQNUm/ aw7+/V9/9N/LVYO5fqY7AFe4Ml8kkqskptldxNi/OUSO8lNo+QL0w+V7omcttul1sNfPPu+QNPadmRSr DgbR7El5Lp15K4x/kWgewV7epkhP5Tgk+KPYnNlp7Bmh01DzB+mvmivRaaIdowokKbPBgwgNvydY2VxK vjIJCzLXMC1WzTkqSs1F03zwW0a82M3rk2rQSFUNQr 3aZAgxkrSDe3Hh6lI0L5uQF8AVrqeOPWK4HxGJtF95xTusvZK+T6/asset specialist/+qpCoD7llUi6dO2v0TQH0Sg [file] ICAgICAgICAgICAgICAgICAgICAgICAgICAgICAgIC AgICAgICAgICAgICAgICAgICAgICAgICAgICAgICAgICAgICAgICAgICAgICAgICAgICAgICAgICAgIA 0KICAgICAgICAgICAgICAgICAgICAgICAgICAgICAgICAgICAgICAgICAgICAgICAgICAgICAgICAgIC AgICAgICAgICAgICAgICAgICAgICAgICAgICAgICAg HUKuUKSsAADlBR8EOBQvWMFgYSCiGNQfSVTmYLFnQGJyEXXrSQLkSUIpSVFgGUFoTNUzWMOaQBBnFWLn BBYzPKOxWBKbAVDwDPFtZVTeHJYjDILvGFQoBMXcJDCdFVTzRJEaTZFbZOUuBWCfQLGuOS2OFSWoNBSa ICAgICAgICAgICAgICAgICAgICAgICAgICAgICAgIC AgICAgICAgICAgICAgICAgICAgICAgICAgICAgICAgICAgICAgICAgICAgICAgICAgICAgICAgICAgIC PtBF4JZREfAIEyKSIuFXZbHWZwHOWyOIEcLTSnWYPqWSKsMXOdHOEjMGVfXKMjRSJwEMSkGUSvACScTJ AgICAgICAgICAgICAgICAgICAgICAgICAgICAgICAg SACnLYBuWMVoEWXcMH3QNQDdFHXeSQQvAQPcOOTiLWLqWMUiZGDqNWGuQREnOUWcCCWgARCdTPPqVOOr MGQvRSGsPSLnPLQdODDlQTMlPWSeMIIpBALzRZToCGYoPHKzUPUdJVLeZWEuWTZrMLUnYAQlDT1OAVUb ICAgICAgICAgICAgICAgICAgICAgICAgICAgICAgIC AgICAgICAgICAgICAgICAgICAgICAgICAgICAgICAgICAgICAgICAgICAgICAgICAgICAgICAgICAgIC QvJUZwXI6EYZRxZOGmZDQsYUHfQXIiYQEaWZIaODWfRTLoXJKcORNjLHTbJNVqSANzLANvHXSdAJBjEZ AgICAgICAgICAgICAgICAgICAgICAgICAgICAgICAg FFNbCCNuGTCaZAFuGQYbRT8BJKDcSUMvRPFhJMPgNBIuBHAbAHMwZLLdSJDpCMGeZWPsGZQkLBBpQPDm VYHgMJVbRCXdSWJoEMPkYZCoOABeITKuFYUoZUIeDQEgRMRxIXZnQSWfIUEtKGRnMHFmOAVvWHDnGA8S WS66cHKhc0C0XPUvUY5ojax/Vf3RYZukzaWjcXUuXX 9CHcZfIY3twl3RCoKqZB1mhq5HRDkRDaCbM9N6jKWuBDFlEXMQIgRkH04cBMrhHr48AFypRNQvAlWhKW p1Yv8ZDvZqL0axEGYrFzR9DGCvSzP4EFOeWfS0LPMtQcYmBIMeKZDjAGNnNWAQWOS2LCFyTvFvRxUiEE GoMTobQPVPCIXuKEVmLrCtTlFeLXPcQB1RXALuG297 bnQgMTANCj4+QJbvupPzQmgCViUnCOVym7ZfXGy6MD8OUPLzPitpw9ToCZVaDADFHOoaSD5SZYI4NHJw SOOwLw4YIMCrQ695hcPfPC4QMp5IUeHsOS1drx5WTHShMWDaCpzPGzg3NGxxBB4PwJEaMIuNmc8jviPq xhWOj2JvmaQvpLTGKX5uT4y7AQykHHBvoAL0GRTqni owPQHcKAAfII0hZH4tXQLgQSIpMwPqDFZWGI2KCZOpFLYudCCaXSNrDDYHGY4CLYunGEW9EOOwqmJwcF OnMUxjNC6RWOFqihFjNZCtOUVRGKd+Ji3MUS7cc4GxNPs3KXMdUC0ujn1KKOjZAfTeT5G2aPObK1M1XC loTt4HBWCoMQNuBKYkQLDIXEfnIU7SEV0mezV3GY2T dTXqEZAlRYBtsVEeIZu9L58pwAFqWNkzCT5ZALQ+Zarina+Kv5MKPJeEABvOPCzVwCtENDAZbOjD9JfB5LT y8ZaG0NqUU77kTbjdxQpQGxyPO0XOS1yXBRiMMPDMY7PmXKnzU1wgtU3FzCiPXNLAmZvS18ikRToHIEi IVFkFTAvQr0JNVUhI4BvrrReoXoblbWcVYKvQPDIME 3UHGkubaAucFMojCupIW64tZiyJP6ZHm6GHiPlDG6kvu0AqIBwRz7CETR9PA7MTLPgUWLhEIGtNQG9OF GjXfJlPPeeOLOxTPZcOEH1FTRwXBWbIO7LRuKbVBWcWED4FIXiOAIlFWHkgy8RHHDkSCZcEttyDgWlDU RpLLNtGKqvGZTkHHIlJBL6WDLnOKIeTH4GGyTxUJNe EGXyJGwfRCNhKBXjlt6LADRoUOUvKhAbZSFnOSAoGONpQDguVEDrPUG0HoN9LWJkURHiFW3JSnYtVAVo EQN0WOGcJAFbZYKzuc2DWUVaCMClFWXyJTXsUQWrKAFqLNwxVUVeGMZ5DRDnIGSyHCMyGN8VKrWoVURr ARVvIMUkKBRlYRTajx3HSRQuENYrCGU8CdKkJKYmOT TaQMtuWTNhVAA7UGR2SHKtJZVtEY0AWjWvWIZfHLQqYqZpRAAjHIWeaz2YDQNaKPQvQgu8KwVkUBRvCJ JyUQpiQHWgJBS6YQerZJZlUKLeMK1IJhHaNHQnMzEpPAzuTYPcKIItiv6POUNzVRMgFWBcQULhBYPaVV RnBCdpBWOzHHOqENZ2TUMtSNMnSE5AKsGnVUSbLlO9 EQVbXJBsLOKsvt5NRPBbGTBvZmJ1SPKcGKSkABEuNDluHVUyKCV1SwN6UHYhUFDmUM1VVnMfRDSjGayk GsNgPLLtRVVbtl8MXNMeDPAcWqEeDaWqIVVsBNAfDNxjRJAvERA3TAv5OOStDZYrGQ4WBwPgTEBoFooi NKByRRPuQMBzxl6RWJWbIIXuSDS2XsZwHJSxZZRxLI gdSDEoWBY1YOT1FTQcQWDlNI0LTdLwWMUePcd5TakiHQTpEOOqwq2TRNLqTMPrAMpoWpDoPYEkLWNpOS njJDWpOMEvNgO7DKIjEMIwDQ0MXuQlWTIgGHQ5QKBmVSSnCNHkqh3SMMJtZRP1HLh0ZNSzMFIiZXZvUJ atPBQbXZDhBOLlAENvJNBeNY4WSmTqVXMwEKIyFVUk RZTfIYDcja1ALBMsQXO0XhIcYFMcSAIqPJMpGZacIIBqLJKzNBS2UYPfIIKuRD5TVwHqYLGvXDB3OTGb LEGqINJeee4ISJRlZXM7APqeYnDfTRLjTJKeZMjwRBZxMuM0OHM1PLDhPUNjGD5QBzItJQHjBAEeYxNe YGMkVZOsro6MSFKlZOUqLqi6GvVmOJDrTUVqZMqmJX AwFbQ2RWB5XOYhOUWiOF0SXdOfYQWhBHdyFCMcADDmVRCdyl3FkPTbuZfowm4ZCUrNFa0XoBwtDJU2WY siMt1juPV3CBJeWMMKDm9WtlOkIHXvVPFNIKrxXBVfSIRzQLywVxY5NTCaRfRySpC1KBYaTYU5GBSeFJ J8DpInFvJ2M6GtVvSwXfIwUCM1LSGfZTn9WeI1WsH6 DLK6Pna1PND+SK3cYWr+Ve7Ja3MrviR5mtAfFVnsMBwsTXEAVwGnJL7EPOb= ID Date Data Source [id number] 02/25/2020 09:29:12 PM EDT [facility] Name Value Range Interpretation Code Description Data Iman rce(s) Supporting Document(s) Progress Note [facility] NQIQNm2gLiNSWjQt08/EUSvsJLSzh2SzQWyaZHo2LMprMRSeA9GvTEU6tD8sHRY9AMxVRjCtObBtTZU9 lbm [file] AtY4NJZ0kSWzKn4XEsggYCMXOjYcNO3IYYz= ID Date Data Source [id number] 01/27/2020 03:13:00 PM EDT [facility] Name Value Range Interpretation Code Description Data Iman rce(s) Supporting Document(s) SARS CORONAVIRUS 2 RNA [facility] This lab was ordered by [facility] and reported by [facility]. ID Date Data Source RESPIRATORY PANEL 01/27/2020 12:00:00 AM EDT eCW1 ([facility]) Name Value Range Interpretation Code Description Data Iman rce(s) Supporting Document(s) This respiratory PCR panel detects Influenza A H1, H3 and RESPIRATORY PANEL eCW1 ([facility]) ID Date Data Source [id number] 01/10/2020 02:35:00 PM EST [facility] ([facility]) Name Value Range Interpretation Code Description Data Iman rce(s) Supporting Document(s) EKG Laboratory test result [facility] ([facility]) ID Date Data Source [id number] 12/15/2019 11:31:00 AM EST [facility] DATE OF EXAM: 12/15/2019Chest Radiograph s, 2 views INDICATION: Personal history of other venous thrombosis and embolism morbid obesity TECHNIQUE: PA and lateral views of the chest were obtained. COMPARISON: None. FINDINGS: The chest wall appears normal. There is no evidence of pleural disease. The lungs are clear. The cardiac and mediastinal silhouette appears unremarkable. Degenerative changes are seen throughout the spine. IMPRESSION: No acute disease. Professional interpretation performed at [facility] [phone].End of diagnostic report for accession: [id number] Interpreted: Nia Haleyranscribed: 12/15/2019 11:31 AMSigned: 12/15/2019 11:31 AM Nia Haley DO [facility] # [id number] BILL # [id number] [facility] Name Value Range Interpretation Code Description Data Iman rce(s) Supporting Document(s) ID Date Data Source [id number] 12/15/2019 12:22:00 PM EST [facility] DATE OF EXAM: 12/15/2019Addendum Begins ARICOSE VEIN DOPPLER STUDY INDICATION: Venous hypertension COMPARISON: None TECHNIQUE: The greater and lesser saphenous veins bilaterally were evaluated in both the supine and standing positions without/with Valsalva maneuvering. FINDINGS: There is no deep venous thrombosis.No reflux in the bilateral lesser saphenous veins was identified. There is reflux in the right greater saphenous vein in both the supine ( duration 1950 msec) and upright ( duration 2400 msec) positions. There is reflux in the left greater saphenous vein in both the supine ( duration 2229 msec) and upright ( duration 721 msec) positions. The right greater saphenous vein measures 8 mm in diameter at the junction with the common femoral vein, 5 mm in the proximal thigh, 4 mm in the mid thigh, 4 mm in the distal thigh, and 3 mm in the proximal calf. The left greater saphenous vein measures 6 mm in diameter at the junction with the common femoral vein, 5 mm in the proximal thigh, 3 mm in the mid thigh, 3 mm in the distal thigh, and 3 mm in the proximal calf. The right lesser saphenous vein measures 5 mm in diameter proximally and 3 mm distally.The left lesser saphenous vein measures 5 mm in diameter proximally and 5 mm distally. IMPRESSION: No evidence of reflux in the bilateral lesser saphenous veins. There is bilateral greater saphenous venous reflux. Professional interpretation performed at [facility] .Addendum EndsBILATERAL LOWER EXTREMITY VENOUS DOPPLER ULTRASOUND INDICATION: Pain and swelling COMPARISON: None TECHNIQUE: Duplex ultrasound with spectral analysis was used to study deep venous system from common femoral to the calf. Combination of compressibility and flow augmentation utilized to assess patency. FINDINGS: There was good compressibility and flow augmentation seen throughout. No thrombus or decreased flow seen at any level. Limited visualization of the anterior/posterior tibial and peroneal veins is unremarkable. IMPRESSION: No evidence of deep venous thrombosis. Professional interpretation performed at [facility] [phone].End of diagnostic report for accession: [id number] Interpreted: Shahid Fritz MDTranscribed: 12/15/2019 10:58 AMSigned: 12/15/2019 12:22 PM Xander Fritz MD [facility] # [id number] BILL # [id number] [facility] Name Value Range Interpretation Code Description Data Iman rce(s) Supporting Document(s) ID Date Data Source [id number] 12/07/2019 08:30:00 AM EST [facility] ([facility]) Name Value Range Interpretation Code Description Data Iman rce(s) Supporting Document(s) white blood count 8.6 10 4.0-10.0 normal White Blood Count [facility] ([facility]) hematocrit 40.0 % 36.0-47.0 normal Hematocrit [facility] ([facility]) mean corpuscular volume 91.5 fL 80.0-96.0 normal Mean Corpusc ular Volume [facility]IRA ([facility]) hemoglobin 12.7 g/dL 12.0-15.5 normal Hemoglobin [facility] ([facility]) red blood count 4.37 10 4.00-5.40 normal Red Blood Count ATHE NA ([facility]) mean corpuscular HGB conc 31.8 g/dL 32.0-36.5 Below low malgorzata l Mean Corpuscular HGB Conc [facility]IRA ([facility]) platelet count, automated 299 10 150-450 normal Platelet C ount, Automated [facility] ([facility]) mean corpuscular hemoglobin 29.1 pg 27.0-33.0 normal Mean Corpuscular Hemoglobin [facility]A ([facility]) red cell distribution width 11.7 % 11.5-14.5 normal Red Cell Distribution Width [facility] ([facility]) nucleated red blood cell % 0.0 % 0-0 normal Nucleated Red Blood Cell % [facility] ([facility]) ID Date Data Source [id number] 12/07/2019 08:30:00 AM EST [facility] ([facility]) Name Value Range Interpretation Code Description Data Iman rce(s) Supporting Document(s) white blood count 8.6 10 4.0-10.0 normal White Blood Count [facility] ([facility]) hemoglobin 12.7 g/dL 12.0-15.5 normal Hemoglobin [facility]A ([facility]) red blood count 4.37 10 4.00-5.40 normal Red Blood Count ATHE NA ([facility]) hematocrit 40.0 % 36.0-47.0 normal Hematocrit [facility]IR[facility] ([facility]) mean corpuscular hemoglobin 29.1 pg 27.0-33.0 normal Mean Corpuscular Hemoglobin [facility]A ([facility]) mean corpuscular volume 91.5 fL 80.0-96.0 normal Mean Corpusc ular Volume AKIRA ([facility]) red cell distribution width 11.7 % 11.5-14.5 normal Red Cell Distribution Width [facility] ([facility]) mean corpuscular HGB conc 31.8 g/dL 32.0-36.5 Below low malgorzata l Mean Corpuscular HGB Conc [facility]IRA ([facility]) platelet count, automated 299 10 150-450 normal Platelet C ount, Automated [facility] ([facility]) nucleated red blood cell % 0.0 % 0-0 normal Nucleated Red Blood Cell % [facility] ([facility]) ID Date Data Source [id number] 12/07/2019 08:30:00 AM EST [facility] ([facility]) Name Value Range Interpretation Code Description Data Iman rce(s) Supporting Document(s) white blood count 8.6 10 4.0-10.0 normal White Blood Count AKIRA ([facility]) red blood count 4.37 10 4.00-5.40 normal Red Blood Count ATHE NA ([facility]) hemoglobin 12.7 g/dL 12.0-15.5 normal Hemoglobin AKIRA ([facility]) mean corpuscular volume 91.5 fL 80.0-96.0 normal Mean Corpusc ular Volume AKIRA ([facility]) hematocrit 40.0 % 36.0-47.0 normal Hematocrit AKIRA ([facility]) mean corpuscular hemoglobin 29.1 pg 27.0-33.0 normal Mean Corpuscular Hemoglobin AKIRA ([facility]) mean corpuscular HGB conc 31.8 g/dL 32.0-36.5 Below low malgorzata l Mean Corpuscular HGB Conc AKIRA ([facility]) nucleated red blood cell % 0.0 % 0-0 normal Nucleated Red Blood Cell % AKIRA ([facility]) platelet count, automated 299 10 150-450 normal Platelet C ount, Automated AKIRA ([facility]) red cell distribution width 11.7 % 11.5-14.5 normal Red Cell Distribution Width AKIRA ([facility]) ID Date Data Source [id number] 12/07/2019 08:29:00 AM EST [facility] ([facility]) Name Value Range Interpretation Code Description Data Iman rce(s) Supporting Document(s) Thiamine [Mass/volume] in Blood 130.3 nmol/L 66.5-200.0 Normal (applies to non- numeric results) [facility] ([facility]) Performed at: [address] [id number] Lead Carpenter: Rima Pappas MD, Phone: [phone] ID Date Data Source [id number] 12/07/2019 08:29:00 AM EST [place] ([facility]) Name Value Range Interpretation Code Description Data Iman rce(s) Supporting Document(s) vitamin B1 level whole blood 130.3 nmol/L 66.5-200.0 normal Vitamin B1 Level Whole Blood AKIRA ([facility]) ID Date Data Source [id number] 12/07/2019 08:29:00 AM EST [place] ([facility]) Name Value Range Interpretation Code Description Data Iman rce(s) Supporting Document(s) ID Date Data Source [id number] 12/07/2019 08:29:00 AM EST AKIRA ([facility]) Name Value Range Interpretation Code Description Data Iman rce(s) Supporting Document(s) ID Date Data Source [id number] 12/07/2019 08:29:00 AM EST AKIRA ([facility]) Name Value Range Interpretation Code Description Data Iman rce(s) Supporting Document(s) ID Date Data Source [id number] 12/07/2019 08:29:00 AM EST AKIRA ([facility]) Name Value Range Interpretation Code Description Data Iman rce(s) Supporting Document(s) ID Date Data Source [id number] 12/07/2019 08:29:00 AM EST AKIRA ([facility]) Name Value Range Interpretation Code Description Data Iman rce(s) Supporting Document(s) Hemoglobin A1c/Hemoglobin.total in Blood 8.8 % normal Hemoglobin a1C AKIRA ([facility]) estimated average glucose 206 mg/dL 60-110 Above high norm al Estimated Average Glucose AKIRA ([facility]) ID Date Data Source [id number] 12/07/2019 08:29:00 AM EST AKIRA ([facility]) Name Value Range Interpretation Code Description Data Iman rce(s) Supporting Document(s) ferritin 87 NG/mL 8-252 normal Ferritin AKIRA ([facility]) ID Date Data Source [id number] 12/07/2019 08:29:00 AM EST AKIRA ([facility]) Name Value Range Interpretation Code Description Data Iman rce(s) Supporting Document(s) total 25(oh) vitamin D 21.1 NG/mL 30.0-100.0 Below low normal T otal 25(Oh) Vitamin D AKIRA ([facility]) ID Date Data Source [id number] 12/07/2019 08:29:00 AM EST AKIRA ([facility]) Name Value Range Interpretation Code Description Data Iman rce(s) Supporting Document(s) vitamin B12 level 583 pg/mL normal Vitamin B12 Level AKIRA ([facility]) folate 10.5 NG/mL normal Folate AKIRA ([facility]) ID Date Data Source [id number] 12/07/2019 08:29:00 AM EST AKIRA ([facility]) Name Value Range Interpretation Code Description Data Iman rce(s) Supporting Document(s) thyroid stimulating hormone 1.520 uIU/mL 0.358-3.740 normal Thyroid Stimulating Hormone AKIRA ([facility]) free T4 1.14 NG/dL 0.76-1.46 normal Free T4 [facility]A ([facility]) ID Date Data Source [id number] 12/07/2019 08:29:00 AM EST AKIRA ([facility]) Name Value Range Interpretation Code Description Data Iman rce(s) Supporting Document(s) iron (fe) 46 ug/dL 50-170 Below low normal Iron (Fe) AKIRA ( [facility]) total iron binding capacity 265 ug/dL 250-450 normal Total Iron Binding Capacity AKIRA ([facility]) percent saturation 17.4 % 13.2-45.0 normal Percent Saturatio n AKIRA ([facility]) ID Date Data Source [id number] 12/07/2019 08:29:00 AM EST AKIRA ([facility]) Name Value Range Interpretation Code Description Data Iman rce(s) Supporting Document(s) triglycerides level 141 mg/dL <150 normal Triglycerides [place] deb[place] AKIRA ([facility]) HDL cholesterol 49 mg/dL >40 normal HDL Cholesterol ATHE NA ([facility]) Cholesterol in LDL [Mass/volume] in Serum or Plasma 118 mg/dL <100 Above high normal LDL Ch[facility] cholesterol level 195 mg/dL <200 normal Cholesterol Level AKIRA ([facility]) non-HDL-C 146 mg/dL normal Non-hdl-c AKIRA ([facility]) cholesterol risk ratio <5 normal Cholesterol R isk Ratio AKIRA ([facility]) ID Date Data Source [id number] 12/07/2019 08:29:00 AM EST AKIRA ([facility]) Name Value Range Interpretation Code Description Data Iman rce(s) Supporting Document(s) blood urea nitrogen 11 mg/dL 7-18 normal Blood Urea Nitro gen AKIRA ([facility]) glucose, fasting 162 mg/dL 70-100 Above high normal Glucose, Fas ting AKIRA ([facility]) sodium level 138 mEq/L 136-145 normal Sodium Level AKIRA (Health system) creatinine for GFR 0.72 mg/dL 0.55-1.30 normal Creatinine for GF R AKIRA ([facility]) glomerular filtration rate > 60.0 >51 normal Glomerula r Filtration Rate AKIRA ([facility]) potassium serum 4.5 mEq/L 3.5-5.1 normal Potassium Serum ATHE NA ([facility]) chloride level 105 mEq/L 98-107 normal Chloride Level AKIRA ([facility]) carbon dioxide level 27 mEq/L 21-32 normal Carbon Dioxide Level AKIRA ([facility]) anion gap 6 mEq/L 8-16 Below low normal Anion Gap AKIRA ( [facility]) alkaline phosphatase 77 U/L 45-117 normal Alkaline Phosph atase AKIRA ([facility]) AST/SGOT 20 U/L 7-37 normal AST/SGOT AKIRA ([facility]) calcium level 8.9 mg/dL 8.5-10.1 normal Calcium Level AKIRA ( [facility]) ALT/SGPT 29 U/L 12-78 normal ALT/SGPT AKIRA ([facility]) albumin 3.6 gm/dL 3.2-5.2 normal Albumin AKIRA ([facility]) bilirubin,total 0.3 mg/dL 0.2-1.0 normal Bilirubin,total ATHE NA ([facility]) total protein 7.3 gm/dL 6.4-8.2 normal Total Protein AKIRA ( [facility]) albumin/globulin ratio 1.00-1.93 Below low normal Albumin /globulin Ratio AKIRA ([facility]) ID Date Data Source [id number] 12/07/2019 08:29:00 AM EST AKIRA ([facility]) Name Value Range Interpretation Code Description Data Iman rce(s) Supporting Document(s) vitamin B1 level whole blood 130.3 nmol/L 66.5-200.0 normal Vitamin B1 Level Whole Blood AKIRA ([facility]) ID Date Data Source [id number] 12/07/2019 08:29:00 AM EST AKIRA ([facility]) Name Value Range Interpretation Code Description Data Iman rce(s) Supporting Document(s) ID Date Data Source [id number] 12/07/2019 08:29:00 AM EST AKIRA ([facility]) Name Value Range Interpretation Code Description Data Iman rce(s) Supporting Document(s) ID Date Data Source [id number] 12/07/2019 08:29:00 AM EST AKIRA ([facility]) Name Value Range Interpretation Code Description Data Iman rce(s) Supporting Document(s) ID Date Data Source [id number] 12/07/2019 08:29:00 AM EST AKIRA ([facility]) Name Value Range Interpretation Code Description Data Iman rce(s) Supporting Document(s) ID Date Data Source [id number] 12/07/2019 08:29:00 AM EST AKIRA ([facility]) Name Value Range Interpretation Code Description Data Iman rce(s) Supporting Document(s) estimated average glucose 206 mg/dL 60-110 Above high norm al Estimated Average Glucose AKIRA ([facility]) Hemoglobin A1c/Hemoglobin.total in Blood 8.8 % normal Hemoglobin a1C AKIRA ([facility]) ID Date Data Source [id number] 12/07/2019 08:29:00 AM EST AKIRA ([facility]) Name Value Range Interpretation Code Description Data Iman rce(s) Supporting Document(s) ferritin 87 NG/mL 8-252 normal Ferritin AKIRA ([facility]) ID Date Data Source [id number] 12/07/2019 08:29:00 AM EST AKIRA ([facility]) Name Value Range Interpretation Code Description Data Iman rce(s) Supporting Document(s) total 25(oh) vitamin D 21.1 NG/mL 30.0-100.0 Below low normal T otal 25(Oh) Vitamin D AKIRA ([facility]) ID Date Data Source [id number] 12/07/2019 08:29:00 AM EST AKIRA ([facility]) Name Value Range Interpretation Code Description Data Iman rce(s) Supporting Document(s) folate 10.5 NG/mL normal Folate AKIRA ([facility]) vitamin B12 level 583 pg/mL normal Vitamin B12 Level AKIRA ([facility]) ID Date Data Source [id number] 12/07/2019 08:29:00 AM EST AKIRA ([facility]) Name Value Range Interpretation Code Description Data Iman rce(s) Supporting Document(s) free T4 1.14 NG/dL 0.76-1.46 normal Free T4 AKIRA ([facility]) thyroid stimulating hormone 1.520 uIU/mL 0.358-3.740 normal Thyroid Stimulating Hormone AKIRA ([facility]) ID Date Data Source [id number] 12/07/2019 08:29:00 AM EST AKIRA ([facility]) Name Value Range Interpretation Code Description Data Iman rce(s) Supporting Document(s) total iron binding capacity 265 ug/dL 250-450 normal Total Iron Binding Capacity AKIRA ([facility]) iron (fe) 46 ug/dL 50-170 Below low normal Iron (Fe) AKIRA ( [facility]) percent saturation 17.4 % 13.2-45.0 normal Percent Saturatio n AKIRA ([facility]) ID Date Data Source [id number] 12/07/2019 08:29:00 AM EST AKIRA ([facility]) Name Value Range Interpretation Code Description Data Iman rce(s) Supporting Document(s) triglycerides level 141 mg/dL <150 normal Triglycerides Le debbie AKIRA ([facility]) cholesterol level 195 mg/dL <200 normal Cholesterol Level AKIRA ([facility]) HDL cholesterol 49 mg/dL >40 normal HDL Cholesterol ATHE NA ([facility]) non-HDL-C 146 mg/dL normal Non-hdl-c AKIRA ([facility]) Cholesterol in LDL [Mass/volume] in Serum or Plasma 118 mg/dL <100 Above high normal LDL Cholesterol AKIRA ([facility]) cholesterol risk ratio <5 normal Cholesterol R isk Ratio AKIRA ([facility]) ID Date Data Source [id number] 12/07/2019 08:29:00 AM EST AKIRA ([facility]) Name Value Range Interpretation Code Description Data Iman rce(s) Supporting Document(s) glucose, fasting 162 mg/dL 70-100 Above high normal Glucose, Fas ting AKIRA ([facility]) blood urea nitrogen 11 mg/dL 7-18 normal Blood Urea Nitro gen AKIRA ([facility]) creatinine for GFR 0.72 mg/dL 0.55-1.30 normal Creatinine for GF R AKIRA ([facility]) glomerular filtration rate > 60.0 >51 normal Glomerula r Filtration Rate AKIRA ([facility]) sodium level 138 mEq/L 136-145 normal Sodium Level [facility]A (Health system) chloride level 105 mEq/L 98-107 normal Chloride Level AKIRA ([facility]) potassium serum 4.5 mEq/L 3.5-5.1 normal Potassium Serum ATHE NA ([facility]) carbon dioxide level 27 mEq/L 21-32 normal Carbon Dioxide Level AKIRA ([facility]) calcium level 8.9 mg/dL 8.5-10.1 normal Calcium Level AKIRA ( [facility]) ALT/SGPT 29 U/L 12-78 normal ALT/SGPT AKIRA ([facility]) anion gap 6 mEq/L 8-16 Below low normal Anion Gap AKIRA ( [facility]) AST/SGOT 20 U/L 7-37 normal AST/SGOT AKIRA ([facility]) total protein 7.3 gm/dL 6.4-8.2 normal Total Protein AKIRA ( [facility]) albumin 3.6 gm/dL 3.2-5.2 normal Albumin AKIRA ([facility]) bilirubin,total 0.3 mg/dL 0.2-1.0 normal Bilirubin,total ATHE NA ([facility]) alkaline phosphatase 77 U/L 45-117 normal Alkaline Phosph atase AKIRA ([facility]) albumin/globulin ratio 1.00-1.93 Below low normal Albumin /globulin Ratio AKIRA ([facility]) ID Date Data Source [id number] 12/07/2019 08:29:00 AM EST AKIRA ([facility]) Name Value Range Interpretation Code Description Data Iman rce(s) Supporting Document(s) vitamin B1 level whole blood 130.3 nmol/L 66.5-200.0 normal Vitamin B1 Level Whole Blood AKIRA ([facility]) ID Date Data Source [id number] 12/07/2019 08:29:00 AM EST AKIRA ([facility] ) Name Value Range Interpretation Code Description Data Iman rce(s) Supporting Document(s) ID Date Data Source [id number] 12/07/2019 08:29:00 AM EST AKIRA ([facility] ) Name Value Range Interpretation Code Description Data Iman rce(s) Supporting Document(s) ID Date Data Source [id number] 12/07/2019 08:29:00 AM EST AKIRA ([facility] ) Name Value Range Interpretation Code Description Data Iman rce(s) Supporting Document(s) ID Date Data Source [id number] 12/07/2019 08:29:00 AM EST AKIRA ([facility]) Name Value Range Interpretation Code Description Data Iman rce(s) Supporting Document(s) ID Date Data Source [id number] 12/07/2019 08:29:00 AM EST AKIRA ([facility] ) Name Value Range Interpretation Code Description Data Iman rce(s) Supporting Document(s) Hemoglobin A1c/Hemoglobin.total in Blood 8.8 % normal Hemoglobin a1C AKIRA ([facility]) estimated average glucose 206 mg/dL 60-110 Above high norm al Estimated Average Glucose AKRIA ([facility]) ID Date Data Source [id number] 12/07/2019 08:29:00 AM EST AKIRA ([facility]) Name Value Range Interpretation Code Description Data Iman rce(s) Supporting Document(s) ferritin 87 NG/mL 8-252 normal Ferritin AKIRA ([facility] ) ID Date Data Source [id number] 12/07/2019 08:29:00 AM EST AKIRA ([facility]) Name Value Range Interpretation Code Description Data Iman rce(s) Supporting Document(s) total 25(oh) vitamin D 21.1 NG/mL 30.0-100.0 Below low normal T otal 25(Oh) Vitamin D AKIRA ([facility]) ID Date Data Source [id number] 12/07/2019 08:29:00 AM EST AKIRA ([facility]) Name Value Range Interpretation Code Description Data Iman rce(s) Supporting Document(s) folate 10.5 NG/mL normal Folate AKIRA ([facility]) vitamin B12 level 583 pg/mL normal Vitamin B12 Level AKIRA ([facility]) ID Date Data Source [id number] 12/07/2019 08:29:00 AM EST AKIRA ([facility]) Name Value Range Interpretation Code Description Data Iman rce(s) Supporting Document(s) free T4 1.14 NG/dL 0.76-1.46 normal Free T4 AKIRA ([facility]) thyroid stimulating hormone 1.520 uIU/mL 0.358-3.740 normal Thyroid Stimulating Hormone AKIRA ([facility]) ID Date Data Source [id number] 12/07/2019 08:29:00 AM EST AKIRA ([facility]) Name Value Range Interpretation Code Description Data Iman rce(s) Supporting Document(s) iron (fe) 46 ug/dL 50-170 Below low normal Iron (Fe) AKIRA ( [facility]) percent saturation 17.4 % 13.2-45.0 normal Percent Saturatio n AKIRA ([facility]) total iron binding capacity 265 ug/dL 250-450 normal Total Iron Binding Capacity AKIRA ([facility]) ID Date Data Source [id number] 12/07/2019 08:29:00 AM EST AKIRA ([facility]) Name Value Range Interpretation Code Description Data Iman rce(s) Supporting Document(s) Cholesterol in LDL [Mass/volume] in Serum or Plasma 118 mg/dL <100 Above high normal LDL Cholesterol AKIRA ([facility]) HDL cholesterol 49 mg/dL >40 normal HDL Cholesterol ATHE NA ([facility]) cholesterol level 195 mg/dL <200 normal Cholesterol Level AKIRA ([facility]) triglycerides level 141 mg/dL <150 normal Triglycerides Le debbie AKIRA ([facility]) non-HDL-C 146 mg/dL normal Non-hdl-c AKIRA ([facility]) cholesterol risk ratio <5 normal Cholesterol R isk Ratio AKIRA ([facility]) ID Date Data Source [id number] 12/07/2019 08:29:00 AM EST AKIRA ([facility]) Name Value Range Interpretation Code Description Data Iman rce(s) Supporting Document(s) glucose, fasting 162 mg/dL 70-100 Above high normal Glucose, Fas ting AKIRA ([facility]) creatinine for GFR 0.72 mg/dL 0.55-1.30 normal Creatinine for GF R AKIRA ([facility]) sodium level 138 mEq/L 136-145 normal Sodium Level AKIRA (Health system) blood urea nitrogen 11 mg/dL 7-18 normal Blood Urea Nitro gen AKIRA ([facility]) glomerular filtration rate > 60.0 >51 normal Glomerula r Filtration Rate AKIRA ([facility]) potassium serum 4.5 mEq/L 3.5-5.1 normal Potassium Serum ATHE NA ([facility]) chloride level 105 mEq/L 98-107 normal Chloride Level AKIRA ([facility]) anion gap 6 mEq/L 8-16 Below low normal Anion Gap AKIRA ( [facility]) carbon dioxide level 27 mEq/L 21-32 normal Carbon Dioxide Level AKIRA ([facility]) AST/SGOT 20 U/L 7-37 normal AST/SGOT AKIRA ([facility]) calcium level 8.9 mg/dL 8.5-10.1 normal Calcium Level AKIRA ( [facility]) alkaline phosphatase 77 U/L 45-117 normal Alkaline Phosph atase AKIRA ([facility]) ALT/SGPT 29 U/L 12-78 normal ALT/SGPT AKIRA ([facility]) albumin/globulin ratio 1.00-1.93 Below low normal Albumin /globulin Ratio AKIRA ([facility]) albumin 3.6 gm/dL 3.2-5.2 normal Albumin AKIRA ([facility]) total protein 7.3 gm/dL 6.4-8.2 normal Total Protein AKIRA ( [facility]) bilirubin,total 0.3 mg/dL 0.2-1.0 normal Bilirubin,total ATHE NA ([facility]) ID Date Data Source [id number] 11/22/2019 03:21:41 PM EST [facility] Name Value Range Interpretation Code Description Data Iman rce(s) Supporting Document(s) Progress Note [facility] [id number] [facility] [file] [id number] ID Date Data Source [id number] 11/19/2019 04:50:38 PM [facility] Name Value Range Interpretation Code Description Data Iman rce(s) Supporting Document(s) Leukocytes [#/volume] in Blood by Automated count 10.3 10*3/uL 4-10 [facility] Erythrocytes [#/volume] in Blood by Automated count 4.32 10*6/uL 4.1- 5.3 [facility] Hemoglobin [Mass/volume] in Blood 13.1 g/dL 11.5-15.5 [facility] Hematocrit [Volume Fraction] of Blood by Automated count 39.2 % 3 6-45 [facility] Erythrocyte mean corpuscular volume [Entitic volume] by Auto mated count 90.8 fL 80-96 [facility] Erythrocyte mean corpuscular hemoglobin [Entitic mass] by Automated count 30.3 pg 27-33 [facility] Erythrocyte mean corpuscular hemoglobin concentration [Mass/volume] by Automated count 33.4 g/dL 32.0-36.0 [facility] distribution width [Ratio] by Automated count 13.0 % 11.5-14.5 [facility] Platelets [#/volume] in Blood by Automated count 365 10*3/uL 150-400 [facility] Differential cell count method - Blood [facility] Neutrophils/100 leukocytes in Blood by Automated count 51 % [facility] Lymphocytes/100 leukocytes in Blood by Automated count 42 % [facility] Monocytes/100 leukocytes in Blood by Automated count 5 % [facility] Eosinophils/100 leukocytes in Blood by Automated count 1 % [facility] Basophils/100 leukocytes in Blood by Automated count 1 % [facility] Neutrophils [#/volume] in Blood by Automated count 5.29 10*3/uL 1.8-7 .0 [facility] Lymphocytes [#/volume] in Blood by Automated count 4.30 10*3/uL 1.2-4 .0 H [facility] Monocytes [#/volume] in Blood by Automated count 0.49 10*3/uL 0-0.8 [facility] Eosinophils [#/volume] in Blood by Automated count 0.14 10*3/uL 0-0.5 [facility] Basophils [#/volume] in Blood by Automated count 0.06 10*3/uL 0-0.2 [facility] Nucleated erythrocytes/100 leukocytes [Ratio] in Blood by Automated count 0 /100{WBCs} 0-0 [facility] ID Date Data Source [id number] 11/19/2019 04:56:49 PM [facility] Value Range Interpretation Code Description Data Iman rce(s) Supporting Document(s) Erythrocyte sedimentation rate 26 mm/hr <30 [facility] ID Date Data Source [id number] 11/19/2019 05:17:03 PM [facility] Value Range Interpretation Code Description Data Iman rce(s) Supporting Document(s) Complement C3 [Mass/volume] in Serum or Plasma 149 mg/dL 90-180 [facility] ID Date Data Source [id number] 11/19/2019 05:17:03 PM [facility] Value Range Interpretation Code Description Data Iman rce(s) Supporting Document(s) Complement C4 [Mass/volume] in Serum or Plasma 23 mg/dL 10-40 [facility] ID Date Data Source [id number] 11/19/2019 05:17:03 PM [facility] Value Range Interpretation Code Description Data Iman rce(s) Supporting Document(s) Creatinine [Mass/volume] in Serum or Plasma 0.68 mg/dL 0.50-0.90 [facility] Glomerular filtration rate/1.73 sq M pre dicted among non-blacks [Volume Rate/Area] in Serum or Plasma by Creatinine-based formula (MDRD) >6 0 [facility] Glomerular filtration rate/1.73 sq M pre dicted among blacks [Volume Rate/Area] in Serum or Plasma by Creatinine-based formula (MDRD) >60 [facility] ID Date Data Source [id number] 11/19/2019 05:17:03 PM [facility] Value Range Interpretation Code Description Data Iman rce(s) Supporting Document(s) Albumin [Mass/volume] in Serum or Plasma by Bromocresol green (BCG) dye binding method 4.6 g/dL 3.5-5.2 [facility] Bilirubin.total [Mass/volume] in Serum or Plasma 0.4 mg/dL <1.2 [facility] Bilirubin.direct [Mass/volume] in Serum or Plasma <0.3 [facility] Alkaline phosphatase [Enzymatic activity/volume] in Serum or Plasma 76 U/L 35-104 [facility] Aspartate aminotransferase [Enzymatic activity/volume] in Serum or Plasma 19 U/L <32 [facility] Alanine aminotransferase [Enzymatic activity/volume] in Seru m or Plasma 19 U/L <33 [facility] Protein [Mass/volume] in Serum or Plasma 7.8 g/dL 6.4-8.3 [facility] ID Date Data Source [id number] 11/22/2019 02:39:19 PM EST [facility] Name Value Range Interpretation Code Description Data Iman rce(s) Supporting Document(s) Nuclear Ab Pattern Homogenous [Titer] in Serum <80 [facility] Nuclear Ab pattern.speckled [Titer] in Serum <80 [facility] Nuclear Ab pattern.rim [Titer] in Serum <80 [facility] Nuclear Ab pattern.nucleolar [Titer] in Serum <80 [facility] Procedure Social History Code Duration Value Status Description Data Source(s ) Alcohol intake 11/14/2020 12:00:00 AM EST Current drinker of al cohol (finding) completed Current drinker of alcohol (finding) [facility] Tobacco use and exposure 11/14/2020 12:00:00 AM EST Never used co mpleted Never used [facility] Cigarette pack-years 11/14/2020 12:00:00 AM EST UNK [facility] Cigarettes smoked current (pack per day) - Reported 11/14/19 21 12:00:00 AM EST UNK completed [facility] Smoking 11/14/2020 12:00:00 AM EST Former smoker completed Former smoker [facility] Smoking 08/25/2020 04:53:00 PM EDT Former Smoker completed Former Smoker [facility] ETOH Use 08/21/2020 12:00:00 AM EDT Denies alcohol use complete d Denies alcohol use [facility] ([facility]) Alcohol intake 08/08/2020 12:00:00 AM EDT Current drinker of al cohol (finding) completed Current drinker of alcohol (finding) [facility] Alcohol intake 07/20/2020 12:00:00 AM EDT Current drinker of al cohol (finding) completed Current drinker of alcohol (finding) [facility] Alcohol intake 07/06/2020 12:00:00 AM EDT Current drinker of al cohol (finding) completed Current drinker of alcohol (finding) [facility] Smoking 04/12/2020 12:00:00 AM EDT Patient is a former smoker completed Patient is a former smoker [facility] ([facility] ) Alcohol intake 03/03/2020 12:00:00 AM EDT Current drinker of al cohol (finding) completed Current drinker of alcohol (finding) [facility] Cigarette pack-years 03/03/2020 12:00:00 AM EDT UNK completed [facility] Cigarettes smoked current (pack per day) - Reported 03/03/20 12:00:00 AM EDT UNK completed [facility] Smoking 03/03/2020 12:00:00 AM EDT Former smoker completed Former smoker [facility] Alcohol intake 11/22/2019 12:00:00 AM EST Current drinker of al cohol (finding) completed Current drinker of alcohol (finding) [facility] Cigarette pack-years 11/22/2019 12:00:00 AM EST UNK [facility] Cigarettes smoked current (pack per day) - Reported 11/22/19 12:00:00 AM EST UNK completed [facility] Smoking 11/22/2019 12:00:00 AM EST Former smoker completed Former smoker [facility] Vital Signs ID Date Data Source UNK Name Value Range Interpretation Code Description Data Source(s) Diastolic blood pressure 63 mm[Hg] 63 mm[Hg] eCW1 ([facility]) Systolic blood pressure 135 mm[Hg] 135 mm[Hg] e CW1 ([facility]) Body temperature 96.6 [degF] 96.6 [degF] eCW1 ( [facility]) Respiratory rate 16 /min 16 /min eCW1 ([facility] [facility] Heart rate 81 /min 81 /min eCW1 ([facility]) Body mass index (BMI) [Ratio] 39.15 kg/m2 39.15 kg/m2 eCW1 ([facility]) Body height 67 [in_i] 67 [in_i] eCW1 ([facility]) Body weight kg eCW1 ([facility]) Body weight 250 [lb_av] 250 [lb_av] eCW1 ([facility]) Diastolic blood pressure 63 mm[Hg] 63 mm[Hg] eCW1 ([facility]) Systolic blood pressure 137 mm[Hg] 137 mm[Hg] e CW1 ([facility]) Body temperature 95.3 [degF] 95.3 [degF] eCW1 ( [facility]) Respiratory rate 18 /min 18 /min eCW1 ([facility]) Heart rate 78 /min 78 /min eCW1 ([facility]) Body mass index (BMI) [Ratio] 39.15 kg/m2 39.15 kg/m2 W1 ([facility]) Body height 67 [in_i] 67 [in_i] eCW1 ([facility]) Body weight kg eCW1 ([facility]) Body weight 250 [lb_av] 250 [lb_av] eCW1 ([facility]) Diastolic blood pressure 61 mm[Hg] 61 mm[Hg] eCW1 ([facility]) Systolic blood pressure 150 mm[Hg] 150 mm[Hg] e CW1 ([facility]) Body temperature 96.7 [degF] 96.7 [degF] eCW1 ( [facility]) Respiratory rate 18 /min 18 /min eCW1 ([facility]) Heart rate 75 /min 75 /min eCW1 ([facility]) Body mass index (BMI) [Ratio] 39.62 kg/m2 39.62 kg/m2 eCW1 ([facility]) Body height 67 [in_i] 67 [in_i] eCW1 ([facility]) Body weight kg eCW1 ([facility]) Body weight 253 [lb_av] 253 [lb_av] eCW1 ([facility]) Body temperature 96.7 [degF] 96.7 [degF] MEDENT ([facility] ) Diastolic blood pressure 70 mm[Hg] 70 mm[Hg] eCW1 ([facility]) Systolic blood pressure 158 mm[Hg] 158 mm[Hg] e CW1 ([facility]) Body temperature 97.1 [degF] 97.1 [degF] eCW1 ( [facility]) Respiratory rate 18 /min 18 /min eCW1 ([facility]) Heart rate 83 /min 83 /min eCW1 ([facility]) Body mass index (BMI) [Ratio] 40.72 kg/m2 40.72 kg/m2 eCW1 ([facility]) Body height 67 [in_i] 67 [in_i] eCW1 ([facility]) Body weight kg eCW1 ([facility]) Body weight 260 [lb_av] 260 [lb_av] eCW1 ([facility]) Diastolic blood pressure 74 mm[Hg] 74 mm[Hg] eCW1 ([facility]) Systolic blood pressure 120 mm[Hg] 120 mm[Hg] e CW1 ([facility]) Body temperature 97.4 [degF] 97.4 [degF] eCW1 ( [facility]) Respiratory rate 18 /min 18 /min eCW1 ([facility]) Heart rate 92 /min 92 /min eCW1 ([facility]) Body mass index (BMI) [Ratio] 40.72 kg/m2 40.72 kg/m2 eCW1 ([facility]) Body height 67 [in_i] 67 [in_i] eCW1 ([facility]) Body weight 260 [lb_av] 260 [lb_av] eCW1 ([facility]) Diastolic blood pressure 53 mm[Hg] 53 mm[Hg] eCW1 ([facility]) Systolic blood pressure 134 mm[Hg] 134 mm[Hg] e CW1 ([facility]) Body temperature 95.4 [degF] 95.4 [degF] eCW1 ( [facility]) Respiratory rate 18 /min 18 /min eCW1 ([facility]) Heart rate 82 /min 82 /min eCW1 ([facility]) Body mass index (BMI) [Ratio] 40.25 kg/m2 40.25 kg/m2 eCW1 ([facility]) Body height 67 [in_i] 67 [in_i] eCW1 ([facility]) Body weight kg eCW1 ([facility]) Body weight 257 [lb_av] 257 [lb_av] eCW1 ([facility]) Diastolic blood pressure 58 mm[Hg] 58 mm[Hg] eCW1 ([facility]) Systolic blood pressure 111 mm[Hg] 111 mm[Hg] e CW1 ([facility]) Body temperature 98.9 [degF] 98.9 [degF] eCW1 ( [facility]) Respiratory rate 16 /min 16 /min eCW1 ([facility]) Heart rate 71 /min 71 /min eCW1 ([facility]) Body mass index (BMI) [Ratio] 40.25 kg/m2 40.25 kg/m2 eCW1 ([facility]) Body height 67 [in_i] 67 [in_i] eCW1 ([facility]) Body weight [lb_av] eCW1 ([facility]) Diastolic blood pressure 68 mm[Hg] 68 mm[Hg] eCW1 ([facility]) Systolic blood pressure 112 mm[Hg] 112 mm[Hg] e CW1 ([facility]) Body temperature 98.2 [degF] 98.2 [degF] eCW1 ( [facility]) Respiratory rate 18 /min 18 /min eCW1 ([facility]) Heart rate 119 /min 119 /min eCW1 ([facility]) Body mass index (BMI) [Ratio] 40.56 kg/m2 40.56 kg/m2 eCW1 ([facility]) Body weight 259 [lb_av] 259 [lb_av] eCW1 ([facility]) Body height 67 [in_i] 67 [in_i] eCW1 ([facility]) Oxygen saturation in Arterial blood by Pulse oximetry 99 % 99 % MEDENT ([facility]) Body temperature 36.3 La 36.3 La MEDENT ( [facility]) Body temperature 97.3 [degF] 97.3 [degF] MEDENT ([facility]) Heart rate 77 /min 77 /min MEDENT ([facility]) Diastolic blood pressure 70 mm[Hg] 70 mm[Hg] MEDENT ([facility]) Systolic blood pressure 110 mm[Hg] 110 mm[Hg] M EDENT ([facility]) Body mass index (BMI) [Ratio] 40.1 kg/m2 40.1 k g/m2 MEDENT ([facility]) Body weight 256.12 [lb_av] 256.12 [lb_av] MEDEN T ([facility]) Body height 67 [in_i] 67 [in_i] MEDENT ([facility]) 5'7" Diastolic blood pressure 76 mm[Hg] 76 mm[Hg] eCW1 ([facility]) Systolic blood pressure 132 mm[Hg] 132 mm[Hg] e CW1 ([facility]) Body temperature 96.9 [degF] 96.9 [degF] eCW1 ( [facility]) Respiratory rate 18 /min 18 /min eCW1 ([facility]) Heart rate 96 /min 96 /min eCW1 ([facility]) Body mass index (BMI) [Ratio] 42.44 kg/m2 42.44 kg/m2 W1 ([facility]) Body height 67 [in_i] 67 [in_i] eCW1 ([facility]) Body weight kg eCW1 ([facility]) Body weight 271 [lb_av] 271 [lb_av] eCW1 ([facility]) Body temperature 36.6 la Normal (applies to non-numeric results) 36.6 la [facility] Respiratory rate 17 min Normal (applies to non-numeric results) 17 min [facility] Heart rate 57 min Normal (applies to non-numeric resul ts) 57 min [facility] Diastolic blood pressure 72 mm[Hg] Normal (applies to non-numeric results) 72 mm[Hg] [facility] Systolic blood pressure 108 mm[Hg] Normal (applies t o non-numeric results) 108 mm[Hg] [facility] Deprecated Oxygen saturation in Capillary blood by Oximetry 96 % Normal (applies to non-numeric results) 96 % [facility] Inhaled oxygen concentration 21 % Normal (appl ies to non-numeric results) 21 % [facility] Body height 169.25146787247625 cm Normal (applies to non-numeric results) 169.70813171867554 cm [facility] Body weight Measured 120.9 kg Normal (applies to n on-numeric results) 120.9 kg [facility] Body mass index (BMI) [Ratio] 41.75 kg/m2 No rmal (applies to non-numeric results) 41.75 kg/m2 [facility] Diastolic blood pressure 70 mm[Hg] 70 mm[Hg] eCW1 ([facility]) Systolic blood pressure 130 mm[Hg] 130 mm[Hg] e CW1 ([facility]) Body temperature 97 [degF] 97 [degF] eCW1 ([facility]) Respiratory rate 18 /min 18 /min eCW1 ([facility]) Heart rate 96 /min 96 /min eCW1 ([facility]) Body mass index (BMI) [Ratio] 42.44 kg/m2 42.44 kg/m2 W1 ([facility]) Body height 67 [in_i] 67 [in_i] eCW1 ([facility]) Body weight 271 [lb_av] 271 [lb_av] eCW1 ([facility]) Diastolic blood pressure 81 mm[Hg] 81 mm[Hg] eCW1 ([facility]) Systolic blood pressure 123 mm[Hg] 123 mm[Hg] e CW1 ([facility]) Body temperature 94.9 [degF] 94.9 [degF] eCW1 ( [facility]) Respiratory rate 18 /min 18 /min eCW1 ([facility]) Heart rate 79 /min 79 /min eCW1 ([facility]) Body mass index (BMI) [Ratio] 42.60 kg/m2 42.60 kg/m2 eCW1 ([facility]) Body height 67 [in_i] 67 [in_i] eCW1 ([facility]) Body weight kg eCW1 ([facility]) Body weight 272 [lb_av] 272 [lb_av] eCW1 ([facility]) Diastolic blood pressure 68 mm[Hg] 68 mm[Hg] eCW1 ([facility]) Systolic blood pressure 120 mm[Hg] 120 mm[Hg] e CW1 ([facility]) Body temperature 96.6 [degF] 96.6 [degF] eCW1 ( [facility]) Respiratory rate 18 /min 18 /min eCW1 ([facility]) Heart rate 110 /min 110 /min eCW1 ([facility]) Body mass index (BMI) [Ratio] 43.07 kg/m2 43.07 kg/m2 eCW1 ([facility]) Body height 67 [in_i] 67 [in_i] eCW1 ([facility]) Body weight 275 [lb_av] 275 [lb_av] eCW1 ([facility]) Oxygen saturation in Arterial blood by Pulse oximetry 98 % 98 % MEDENT ([facility]) Body temperature 36.0 La 36.0 La MEDENT ( [facility]) Body temperature 96.8 [degF] 96.8 [degF] MEDENT ([facility]) Heart rate 77 /min 77 /min MEDENT ([facility]) Diastolic blood pressure 80 mm[Hg] 80 mm[Hg] MEDENT ([facility]) Systolic blood pressure 138 mm[Hg] 138 mm[Hg] M EDENT ([facility]) Body mass index (BMI) [Ratio] 43.1 kg/m2 43.1 k g/m2 MEDENT ([facility]) Body weight 275.38 [lb_av] 275.38 [lb_av] MEDEN T ([facility]) Body height 67 [in_i] 67 [in_i] MEDENT ([facility]) 5'7" Diastolic blood pressure 73 mm[Hg] 73 mm[Hg] eCW1 ([facility]) Systolic blood pressure 150 mm[Hg] 150 mm[Hg] e CW1 ([facility]) Body temperature 96.8 [degF] 96.8 [degF] eCW1 ( [facility]) Respiratory rate 18 /min 18 /min eCW1 ([facility]) Heart rate 95 /min 95 /min eCW1 ([facility]) Body mass index (BMI) [Ratio] 42.91 kg/m2 42.91 kg/m2 eCW1 ([facility]) Body height 67 [in_i] 67 [in_i] eCW1 ([facility]) Body weight 274 [lb_av] 274 [lb_av] eCW1 ([facility]) Diastolic blood pressure 70 mm[Hg] 70 mm[Hg] eCW1 ([facility]) Systolic blood pressure 130 mm[Hg] 130 mm[Hg] e CW1 ([facility]) Body temperature 98.2 [degF] 98.2 [degF] eCW1 ( [facility]) Respiratory rate 18 /min 18 /min eCW1 ([facility]) Heart rate 90 /min 90 /min eCW1 ([facility]) Body mass index (BMI) [Ratio] 42.91 kg/m2 42.91 kg/m2 eCW1 ([facility]) Body height 67 [in_i] 67 [in_i] eCW1 ([facility]) Body weight 274 [lb_av] 274 [lb_av] eCW1 ([facility]) Heart rate 72 /min 72 /min MEDENT ([facility]) Diastolic blood pressure 62 mm[Hg] 62 mm[Hg] MEDENT ([facility]) Systolic blood pressure 126 mm[Hg] 126 mm[Hg] M EDENT ([facility]) Body mass index (BMI) [Ratio] 43.3 kg/m2 43.3 k g/m2 MEDENT ([facility]) Body weight 276.25 [lb_av] 276.25 [lb_av] MEDEN T ([facility]) Body height 67 [in_i] 67 [in_i] MEDENT ([facility]) 5'7" Body mass index (BMI) [Ratio] 41.5 kg/m2 41.5 k g/m2 MEDENT ([facility]) Body weight 265.00 [lb_av] 265.00 [lb_av] MEDEN T ([facility]) Body height 67 [in_i] 67 [in_i] MEDENT ([facility]) 5'7" Diastolic blood pressure 76 mm[Hg] 76 mm[Hg] eCW1 ([facility]) Systolic blood pressure 124 mm[Hg] 124 mm[Hg] e CW1 ([facility]) Body temperature 97.5 [degF] 97.5 [degF] eCW1 ( [facility]) Respiratory rate 20 /min 20 /min eCW1 ([facility]) Heart rate 104 /min 104 /min eCW1 ([facility]) Body mass index (BMI) [Ratio] 41.97 kg/m2 41.97 kg/m2 W1 ([facility]) Body height 67 [in_i] 67 [in_i] eCW1 ([facility]) Body weight 268.0 [lb_av] 268.0 [lb_av] eCW1 ([facility]) Heart rate 84 /min 84 /min MEDENT ([facility]) Diastolic blood pressure 68 mm[Hg] 68 mm[Hg] MEDENT ([facility]) Systolic blood pressure 132 mm[Hg] 132 mm[Hg] M EDENT ([facility]) Body mass index (BMI) [Ratio] 42.4 kg/m2 42.4 k g/m2 MEDENT ([facility]) Body weight 270.50 [lb_av] 270.50 [lb_av] MEDEN T ([facility]) Body height 67 [in_i] 67 [in_i] MEDENT ([facility]) 5'7" Heart rate 84 /min 84 /min MEDENT ([facility]) Diastolic blood pressure 68 mm[Hg] 68 mm[Hg] MEDENT ([facility]) Systolic blood pressure 132 mm[Hg] 132 mm[Hg] M EDENT ([facility]) Body mass index (BMI) [Ratio] 42.4 kg/m2 42.4 k g/m2 MEDENT ([facility]) Body weight 270.50 [lb_av] 270.50 [lb_av] MEDEN T ([facility]) Body mass index (BMI) [Ratio] 41.5 kg/m2 41.5 k g/m2 MEDENT ([facility] ) Body weight 265.00 [lb_av] 265.00 [lb_av] MEDEN T ([facility] ) Body height 67 [in_i] 67 [in_i] MEDENT ([facility] ) 5'7" Body temperature 97.1 [degF] 97.1 [degF] MEDENT ([facility] ) Diastolic blood pressure 70 mm[Hg] 70 mm[Hg] eCW1 ([facility]) Systolic blood pressure 124 mm[Hg] 124 mm[Hg] e CW1 ([facility]) Body temperature 97.8 [degF] 97.8 [degF] eCW1 ( [facility]) Respiratory rate 20 /min 20 /min eCW1 ([facility]) Heart rate 99 /min 99 /min eCW1 ([facility]) Body mass index (BMI) [Ratio] 41.50 kg/m2 41.50 kg/m2 W1 ([facility]) Body height 67 [in_i] 67 [in_i] eCW1 ([facility]) Body weight 265.0 [lb_av] 265.0 [lb_av] eCW1 ([facility]) Body weight 265 [lb_av] 265 [lb_av] AKIRA ([facility]) Body mass index (BMI) [Ratio] 41.5 kg/m2 41.5 k g/m2 AKIRA ([facility]) Body height 67 [in_i] 67 [in_i] AKIRA ([facility]) [place] body weight 135 [lb_av] 135 [lb_av] MEDEN T ([facility]) Body mass index (BMI) [Ratio] 41.5 kg/m2 41.5 k g/m2 MEDENT ([facility]) Body weight 265.00 [lb_av] 265.00 [lb_av] MEDEN T ([facility]) Body height 67 [in_i] 67 [in_i] MEDENT ([facility]) 5'7" Body temperature 97.2 [degF] 97.2 [degF] MEDENT ([facility]) Body surface area Derived from formula 2.28 m2 2.28 m2 MEDENT ([facility]) Body weight 120.204 kg 120.204 [facility] Diastolic blood pressure 76 mm[Hg] 76 mm[Hg] eCW1 ([facility]) Systolic blood pressure 122 mm[Hg] 122 mm[Hg] e CW1 ([facility]) Body temperature 97.2 [degF] 97.2 [degF] eCW1 ( [facility]) Respiratory rate 20 /min 20 /min eCW1 ([facility]) Heart rate 100 /min 100 /min W1 ([facility]) Body mass index (BMI) [Ratio] 41.53 kg/m2 41.53 kg/m2 W1 ([facility]) Body height 67 [in_us] 67 [in_us] eCW1 ([facility]) Body weight Measured 265.2 [lb_av] 265.2 [lb_av ] eCW1 ([facility]) Body weight 265 [lb_av] 265 [lb_av] AKIRA ([facility] ) Body mass index (BMI) [Ratio] 41.5 kg/m2 41.5 k g/m2 AKIRA ([facility] ) Body height 67 [in_i] 67 [in_i] AKIRA ([facility] ) Body weight 265 [lb_av] 265 [lb_av] AKIRA ([facility] ) Body mass index (BMI) [Ratio] 41.5 kg/m2 41.5 k g/m2 AKIRA ([facility]) Body height 67 [in_i] 67 [in_i] AKIRA ([facility]) Diastolic blood pressure 80 mm[Hg] 80 mm[Hg] eCW1 ([facility]) Systolic blood pressure 128 mm[Hg] 128 mm[Hg] e CW1 ([facility]) Body temperature 98.1 [degF] 98.1 [degF] eCW1 ( [facility]) Respiratory rate 20 /min 20 /min eCW1 ([facility]) Heart rate /min eCW1 ([facility]) Body mass index (BMI) [Ratio] 41.25 kg/m2 41.25 kg/m2 W1 ([facility]) Body height 67 [in_us] 67 [in_us] eCW1 ([facility]) Body weight Measured 263.4 [lb_av] 263.4 [lb_av ] eCW1 ([facility]) Heart rate 84 /min 84 /min MEDENT ([facility]) Diastolic blood pressure 70 mm[Hg] 70 mm[Hg] MEDENT ([facility]) Systolic blood pressure 144 mm[Hg] 144 mm[Hg] M EDENT ([facility]) Diastolic blood pressure 72 mm[Hg] 72 mm[Hg] MEDENT ([facility]) Systolic blood pressure 132 mm[Hg] 132 mm[Hg] M EDENT ([facility]) Body mass index (BMI) [Ratio] 42.3 kg/m2 42.3 k g/m2 MEDENT ([facility]) Body weight 270.38 [lb_av] 270.38 [lb_av] MEDEN T ([facility]) Body height 67 [in_i] 67 [in_i] MEDENT ([facility]) 5'7" Heart rate 84 /min 84 /min MEDENT ([facility]) Diastolic blood pressure 72 mm[Hg] 72 mm[Hg] MEDENT ([facility]) Systolic blood pressure 132 mm[Hg] 132 mm[Hg] M EDENT ([facility]) Body mass index (BMI) [Ratio] 42.3 kg/m2 42.3 k g/m2 MEDENT ([facility]) Body weight 270.38 [lb_av] 270.38 [lb_av] MEDEN T ([facility]) Body mass index (BMI) [Ratio] 42.6 kg/m2 42.6 k g/m2 MEDENT ([facility]) Body weight 272.00 [lb_av] 272.00 [lb_av] MEDEN T ([facility]) Body height 67 [in_i] 67 [in_i] MEDENT ([facility]) 5'7" Body temperature 97.4 [degF] 97.4 [degF] MEDENT ([facility] ) Diastolic blood pressure 80 mm[Hg] 80 mm[Hg] eCW1 ([facility]) Systolic blood pressure 130 mm[Hg] 130 mm[Hg] e CW1 ([facility]) Body temperature 97.4 [degF] 97.4 [degF] eCW1 ( [facility]) Respiratory rate 20 /min 20 /min eCW1 ([facility]) Heart rate 101 /min 101 /min eCW1 ([facility]) Body mass index (BMI) [Ratio] 42.57 kg/m2 42.57 kg/m2 W1 ([facility]) Body height 67 [in_us] 67 [in_us] eCW1 ([facility]) Body weight Measured 271.8 [lb_av] 271.8 [lb_av ] eCW1 ([facility]) Diastolic blood pressure 72 mm[Hg] 72 mm[Hg] eCW1 ([facility]) Systolic blood pressure 126 mm[Hg] 126 mm[Hg] e CW1 ([facility]) Body mass index (BMI) [Ratio] 41.94 kg/m2 41.94 kg/m2 W1 ([facility]) Body height 67 [in_us] 67 [in_us] eCW1 ([facility]) Body weight Measured 267.8 [lb_av] 267.8 [lb_av ] eCW1 ([facility]) Body weight 265 [lb_av] 265 [lb_av] AKIRA ([facility]) Systolic blood pressure 144 mm[Hg] 144 mm[Hg] A THENA ([facility]) Body mass index (BMI) [Ratio] 41.5 kg/m2 41.5 k g/m2 AKIRA ([facility]) Body height 67 [in_i] 67 [in_i] AKIRA ([facility]) Diastolic blood pressure 78 mm[Hg] 78 mm[Hg] AKIRA ([facility]) Body weight 265 [lb_av] 265 [lb_av] AKIRA ([facility]) Systolic blood pressure 144 mm[Hg] 144 mm[Hg] A THENA ([facility]) Body mass index (BMI) [Ratio] 41.5 kg/m2 41.5 k g/m2 AKIRA ([facility]) Body height 67 [in_i] 67 [in_i] AKIRA ([facility]) Diastolic blood pressure 78 mm[Hg] 78 mm[Hg] AKIRA ([facility]) Body weight 265 [lb_av] 265 [lb_av] AKIRA ([facility]) Systolic blood pressure 144 mm[Hg] 144 mm[Hg] A THENA ([facility]) Body mass index (BMI) [Ratio] 41.5 kg/m2 41.5 k g/m2 AKIRA ([facility]) Body height 67 [in_i] 67 [in_i] AKIRA ([facility]) Diastolic blood pressure 78 mm[Hg] 78 mm[Hg] AKIRA ([facility]) Body weight 269 [lb_av] 269 [lb_av] AKIRA ([facility]) Systolic blood pressure 140 mm[Hg] 140 mm[Hg] A THENA ([facility]) Body mass index (BMI) [Ratio] 42.1 kg/m2 42.1 k g/m2 AKIRA ([facility]) Body height 67 [in_i] 67 [in_i] AKIRA ([facility]) Diastolic blood pressure 80 mm[Hg] 80 mm[Hg] AKIRA ([facility]) Body weight 269 [lb_av] 269 [lb_av] AKIRA ([facility]) Systolic blood pressure 140 mm[Hg] 140 mm[Hg] A THENA ([facility]) Body mass index (BMI) [Ratio] 42.1 kg/m2 42.1 k g/m2 AKIRA ([facility]) Body height 67 [in_i] 67 [in_i] AKIRA ([facility]) Diastolic blood pressure 80 mm[Hg] 80 mm[Hg] AKIRA ([facility]) Body weight 269 [lb_av] 269 [lb_av] AKIRA ([facility] ) Systolic blood pressure 140 mm[Hg] 140 mm[Hg] A THENA ([facility]) Body mass index (BMI) [Ratio] 42.1 kg/m2 42.1 k g/m2 AKIRA ([facility]) Body height 67 [in_i] 67 [in_i] AKIRA ([facility]) Diastolic blood pressure 80 mm[Hg] 80 mm[Hg] AKIRA ([facility]) Body weight 269 [lb_av] 269 [lb_av] AKIRA ([facility]) Systolic blood pressure 140 mm[Hg] 140 mm[Hg] A THENA ([facility]) Body mass index (BMI) [Ratio] 42.1 kg/m2 42.1 k g/m2 AKIRA ([facility]) Body height 67 [in_i] 67 [in_i] AKIRA ([facility]) Diastolic blood pressure 80 mm[Hg] 80 mm[Hg] AKIRA ([facility]) ID Date Data Source [id number] 11/14/2020 07:40:32 PM EST [facility] Name Value Range Interpretation Code Description Data Source(s) WEIGHT RECORDED 249 lb 249 lb [facility] ID Date Data Source [id number] 08/08/2020 10:52:01 AM EDT [facility] Name Value Range Interpretation Code Description Data Source(s) WEIGHT RECORDED 275 lb 275 lb [facility] Body height Measured 67 in 67 in [facility] ID Date Data Source [id number] 03/03/2020 01:00:39 PM [facility] Name Value Range Interpretation Code Description Data Source(s) WEIGHT RECORDED 265 lb 265 lb [facility] Body height Measured 67 in 67 in [facility] ID Date Data Source [id number] 12/20/2019 05:51:18 PM [facility] Name Value Range Interpretation Code Description Data Source(s) WEIGHT RECORDED 265.4 lb 265.4 lb [facility] Body height Measured 67.28 in 67.28 in [facility] ID Date Data Source [id number] 11/09/2019 11:38:28 AM [facility] Name Value Range Interpretation Code Description Data Source(s) WEIGHT RECORDED 278.2 lb 278.2 lb [place] [facility] Body height Measured 67.32 in 67.32 in [facility] Patient Treatment Plan of Care Planned Activity Planned Date Details Description Data Source (s) Stephanie Garcia 300 UNIT/ML Subcutan eous Solution Pen-injector (insulin glargine (2 Unit Dial)) 11/14/2020 12:00:00 AM [facility] levocetirizine dihydrochloride 5 MG Oral Tablet 11/07/2020 12:00:00 AM [facility] Methotrexate 2.5 MG Oral Tablet 09/29/2020 12:00:00 AM [facility] Polymyxin B 63501 UNT/ML / Trimethoprim 1 MG/ML Ophtha lmic Solution [Polytrim] 09/13/2020 12:00:00 AM EST eCW1 ([facility]) Polymyxin B 33921 UNT/ML / Trimethoprim 1 MG/ML Ophtha lmic Solution [Polytrim] 09/13/2020 12:00:00 AM EST eCW1 ([facility]) Unifine Pentips Plus 31G X 5 MM (Insulin Pen Needle) 020 12:00:00 AM [facility] OneTouch Verio w/Device Kit 08/08/2020 12:00:00 AM [facility] 24 HR Metformin hydrochloride 500 MG Extended Release Oral Tablet 07/06/2020 12:00:00 AM [facility] Unifine Pentips Plus 31G X 5 MM (Insulin Pen Needle) 020 12:00:00 AM [facility] levocetirizine dihydrochloride 5 MG Oral Tablet 03/07/2020 12:00:00 AM EDT eCW ([facility]) Fexofenadine hydrochloride 180 MG Oral Tablet 03/03/2020 12:00:00 A M EDT eCW ([facility]) Ibuprofen 800 MG Oral Tablet 03/03/2020 12:00:00 AM EDT eCW ([facility]) Triamcinolone Acetonide 55 MCG/ACT 03/03/2020 12:00:00 AM EDT eCW ([facility]) Methotrexate 2.5 MG Oral Tablet 02/25/2020 12:00:00 AM [facility] Folic Acid 1 MG Oral Tablet 02/25/2020 12:00:00 AM [facility] Cheratussin AC 100-10 MG/5ML 02/02/2020 12:00:00 AM EDT eCW ([facility]) Cheratussin AC 100-10 MG/5ML 02/02/2020 12:00:00 AM EDT eCW ([facility]) NasoNeb Nebulizer Replacement - 01/27/2020 12:00:00 AM EDT eC ([facility]) Alcohol Swabs - 01/27/2020 12:00:00 AM EDT eC ([facility]) Nebulizer Air Tube/Plugs - 01/27/2020 12:00:00 AM EDT eCW1 ([facility]) RA Tussin Cough DM Sugar Free 100-10 MG/5ML 01/27/2020 12:00:00 AM EDT eCW1 ([facility]) Flonase Sensimist 27.5 MCG/SPRAY 01/27/2020 12:00:00 AM EDT eC ([facility]) OneTouch Verio w/Device Kit 01/21/2020 12:00:00 AM [facility] Insulin Glargine (2 Unit Dial) 300 UNIT/ ML Subcutaneous Solution Pen-injector (Stephanie Garcia) 01/13/2020 12:00:00 AM [facility] Cefuroxime 500 MG Oral Tablet 01/03/2020 12:00:00 AM EST [place] [facility] ([facility]) 24 HR Oxybutynin chloride 5 MG Extended Release Oral T ablet 12/22/2019 12:00:00 AM EST [place] [facility] ([facility]) 24 HR Oxybutynin chloride 5 MG Extended Release Oral T ablet 12/22/2019 12:00:00 AM EST [place] [facility] ([facility]) 24 HR Oxybutynin chloride 5 MG Extended Release Oral T ablet 12/16/2019 12:00:00 AM EST [place] [facility] ([facility]) 3 ML Insulin Lispro 100 UNT/ML Pen Injector 10/05/2019 12:00:00 AM [facility] Glucagon 1 MG Injection 06/17/2019 12:00:00 AM [facility] 24 HR Metformin hydrochloride 500 MG Extended Release Oral Tablet 09/22/2018 12:00:00 AM [facility] ospital Apixaban (ELIQUIS PO) [facility] Furosemide 40 MG Oral Tablet [facility] metaxalone 800 MG Oral Tablet [facility] Levofloxacin 750 MG Oral Tablet [facility] OneTouch Verio test strips A [facility] ([facility]) OneTouch Verio Flex Meter AT [facility] ([facility]) OneTouch Delica Plus Lancet 33 gauge AKIRA ([facility]) Ondansetron 4 MG Disintegrating Oral Tablet [facility]IR[facility] ([facility]) NITROFURANTOIN, MACROCRYSTALS 25 MG / Ni trofurantoin, Monohydrate 75 MG Oral Capsule [facility] ([facility]) 24 HR Metformin hydrochloride 500 MG Extended Release Oral Tablet [facility] ([facility]) Glucagon 1 MG Injection ATHE NA ([facility]) ciclopirox 80 MG/ML Topical Solution [facility] ([facility]) Cephalexin 500 MG Oral Capsule [facility]IR[facility] ([facility]) Cefuroxime 500 MG Oral Tablet [facility] ([facility]) buspirone hydrochloride 10 MG Oral Tablet [facility] ([facility]) Amoxicillin 875 MG / Clavulanate 125 MG Oral Tablet [facility] ([facility]) Afluria Qd 2018- (36 mos up)(PF)60 mcg (15 mcg x4)/0.5 mL IM syri nge AKIRA ([facility]) sure comfort mis 31gx3/16 AT [facility] ([facility]) Ondansetron 4 MG Disintegrating Oral Tablet [facility]IR[facility] ([facility]) NITROFURANTOIN, MACROCRYSTALS 25 MG / Ni trofurantoin, Monohydrate 75 MG Oral Capsule [facility]IR[facility] ([facility]) 24 HR Metformin hydrochloride 500 MG Extended Release Oral Tablet [facility] ([facility]) Afluria Qd 2019 (36 mos up)(PF)60 mcg (15 mcg x4)/0.5 mL IM syri nge AKIRA ([facility]) Unifine Pentips Plus 31 gauge x 3/16" needle AKIRA ([facility]) sure comfort mis 31gx3/16 AT [facility] ([facility]) Glucagon 1 MG Injection ATHE NA ([facility]) ciclopirox 80 MG/ML Topical Solution [facility]IRA ([facility]) Cephalexin 500 MG Oral Capsule [facility]IR[facility] ([facility]) sure comfort mis 31gx3/16 AT [facility] ([facility]) Ondansetron 4 MG Disintegrating Oral Tablet [facility] ([facility]) NITROFURANTOIN, MACROCRYSTALS 25 MG / Ni trofurantoin, Monohydrate 75 MG Oral Capsule [facility]IR[facility] ([facility]) 24 HR Metformin hydrochloride 500 MG Extended Release Oral Tablet [facility] ([facility]) Glucagon 1 MG Injection ATHE NA ([facility]) ciclopirox 80 MG/ML Topical Solution [facility]IRA ([facility]) Cephalexin 500 MG Oral Capsule [facility]IR[facility] ([facility]) Afluria Qd 2019 (36 mos up)(PF)60 mcg (15 mcg x4)/0.5 mL IM syri nge AKIRA ([facility]) Unifine Pentips 31 gauge x 3/16" needle [facility]IRA ([facility]) sure comfort mis 31gx3/16 AT [place] ([facility]) Ondansetron 4 MG Disintegrating Oral Tablet [facility] ([facility]) NITROFURANTOIN, MACROCRYSTALS 25 MG / Ni trofurantoin, Monohydrate 75 MG Oral Capsule [facility] ([facility]) 24 HR Metformin hydrochloride 500 MG Extended Release Oral Tablet [facility] ([facility]) Glucagon 1 MG Injection ATHE NA ([facility]) ciclopirox 80 MG/ML Topical Solution [facility]IR[facility] ([facility]) Cephalexin 500 MG Oral Capsule [facility] ([facility]) buspirone hydrochloride 10 MG Oral Tablet [facility] ([facility])
[2020-11-26] MEDS ORDERED: ASPIRIN 81 MG CHEW TABLET PO ONE ×2 (17:15)
[2020-11-26] MEDS ORDERED: ONDANSETRON 4MG/2ML VIAL IV ONE ×2 (17:15→20:45)
--- OUTSIDE RECORDS SUMMARY | 2020-11-26 17:30 | CCD ---
Author Author [facility] Organization [facility] Address Unknown Phone Unavailable Care Team Providers Care Assistant Pressman Name Role Phone Yegiazarov, Y Georgiy Unavailable [...] Brown MD Unavailable Unavailable Walker, H Danni SADDLE TREE STITCHER Unavailable Unavailable Walker, H Danni SADDLE TREE STITCHER Unavailable Unavailable Walker, H Danni SADDLE TREE STITCHER Unavailable Unavailable Walker, H Danni SADDLE TREE STITCHER Unavailable Unavailable Walker, H Danni SADDLE TREE STITCHER Unavailable Unavailable Walker, H Danni SADDLE TREE STITCHER Unavailable Unavailable Walker, H Danni SADDLE TREE STITCHER Unavailable Unavailable Walker, H Danni SADDLE TREE STITCHER Unavailable Unavailable Walker, H Danni SADDLE TREE STITCHER Unavailable Unavailable Walker, H Danni SADDLE TREE STITCHER Unavailable Unavailable Walker, H Danni SADDLE TREE STITCHER Unavailable Unavailable Walker, H Danni SADDLE TREE STITCHER Unavailable Unavailable Walker, H Danni SADDLE TREE STITCHER Unavailable Unavailable Walker, H Danni SADDLE TREE STITCHER Unavailable Unavailable Walker, H Danni SADDLE TREE STITCHER Unavailable Unavailable Walker, H Danni SADDLE TREE STITCHER Unavailable Unavailable Walker, H Danni SADDLE TREE STITCHER Unavailable Unavailable Walker, H Danni SADDLE TREE STITCHER Unavailable Unavailable Walker, H Danni SADDLE TREE STITCHER Unavailable Unavailable Walker, H Danni SADDLE TREE STITCHER Unavailable Unavailable Walker, H Danni SADDLE TREE STITCHER Unavailable Unavailable Walker, H Danni SADDLE TREE STITCHER Unavailable Unavailable Walker, H Danni SADDLE TREE STITCHER Unavailable Unavailable Walker, H Danni SADDLE TREE STITCHER Unavailable Unavailable Walker, H Danni SADDLE TREE STITCHER Unavailable Unavailable Walker, H Danni SADDLE TREE STITCHER Unavailable Unavailable Walker, H Danni SADDLE TREE STITCHER Unavailable Unavailable Walker, H Danni SADDLE TREE STITCHER Unavailable Unavailable Walker, H Danni SADDLE TREE STITCHER Unavailable Unavailable Walker, H Danni SADDLE TREE STITCHER Unavailable Unavailable Walker, H Danni SADDLE TREE STITCHER Unavailable Unavailable Walker, H Danni SADDLE TREE STITCHER Unavailable Unavailable Walker, H Danni SADDLE TREE STITCHER Unavailable Unavailable Walker, H Danni SADDLE TREE STITCHER Unavailable Unavailable Walker, H Danni SADDLE TREE STITCHER Unavailable Unavailable Walker, H Danni SADDLE TREE STITCHER Unavailable Unavailable Walker, H Danni SADDLE TREE STITCHER Unavailable Unavailable Walker, H Danni SADDLE TREE STITCHER Unavailable Unavailable Walker, H Danni SADDLE TREE STITCHER Unavailable Unavailable Walker, H Danni SADDLE TREE STITCHER Unavailable Unavailable Walker, H Danni SADDLE TREE STITCHER Unavailable Unavailable Walker, H Danni SADDLE TREE STITCHER Unavailable Unavailable Walker, H Danni SADDLE TREE STITCHER Unavailable Unavailable Walker, H Danni SADDLE TREE STITCHER Unavailable Unavailable Walker, H Danni SADDLE TREE STITCHER Unavailable Unavailable Walker, H Danni SADDLE TREE STITCHER Unavailable Unavailable Walker, H Danni SADDLE TREE STITCHER Unavailable Unavailable Walker, H Danni SADDLE TREE STITCHER Unavailable Unavailable Walker, H Danni SADDLE TREE STITCHER Unavailable Unavailable Walker, H Danni SADDLE TREE STITCHER Unavailable Unavailable Basilio Gonzalez MD Unavailable Unavailable [...] K Yariel SIGALA Unavailable Unavailable Xexemeku, K Yarile SIGALA Unavailable Unavailable Xexemeku, K Yariel SIGALA Unavailable Unavailable Sabion Olivera MD Unavailable Unavailable [...] Unavailable De EdisSabino MD Unavailable Unavailable De EdisaSbino MD Unavailable Unavailable De EdisSabino MD Unavailable [...] Unavailable De Sabino Randhawa MD Unavailable Unavailable VETO PIEDRA Unavailable Unavailable Bahamonde, E Radha SADDLE TREE STITCHER Unavailable Unavailable Bahamonde, E Radha SADDLE TREE STITCHER Unavailable Unavailable Bahamonde, E Radha SADDLE TREE STITCHER Unavailable Unavailable Bahamonde, E Radha SADDLE TREE STITCHER Unavailable Unavailable Bahamonde, E Radha SADDLE TREE STITCHER Unavailable Unavailable Bahamonde, E Radha SADDLE TREE STITCHER Unavailable Unavailable Bahamonde, E Radha SADDLE TREE STITCHER Unavailable Unavailable Bahamonde, E Radha SADDLE TREE STITCHER Unavailable Unavailable Bahamonde, E Radha SADDLE TREE STITCHER Unavailable Unavailable Bahamonde, E Radha SADDLE TREE STITCHER Unavailable Unavailable Bahamonde, E Radha SADDLE TREE STITCHER Unavailable Unavailable Bahamonde, E Radha SADDLE TREE STITCHER Unavailable Unavailable Bahamonde, E Radha SADDLE TREE STITCHER Unavailable Unavailable Bahamonde, E Radha SADDLE TREE STITCHER Unavailable Unavailable Bahamonde, E Radha SADDLE TREE STITCHER Unavailable Unavailable Bahamonde, E Radha SADDLE TREE STITCHER Unavailable Unavailable Bahamonde, E Radha SADDLE TREE STITCHER Unavailable Unavailable Bahamonde, E Radha SADDLE TREE STITCHER Unavailable Unavailable Bahamonde, E Radha SADDLE TREE STITCHER Unavailable Unavailable Bahamonde, E Radha SADDLE TREE STITCHER Unavailable Unavailable Bahamonde, E Radha SADDLE TREE STITCHER Unavailable Unavailable Owen, Isidro Mcclure MD Unavailable [...] Unavailable Owen, Isidro Mcclure MD Unavailable Unavailable Owne, Isidro Mcclure MD Unavailable Unavailable Owen, Isidro [...] M CAS DO Unavailable Unavailable NELLY, M CSA DO Unavailable Unavailable NELLY, M CAS DO [...] Nahomi Buckley MD Unavailable Unavailable Sae, Nahomi Bucklye MD Unavailable Unavailable Sae, Nahomi Buckley MD [...] K Yariel SIGALA Unavailable Unavailable Xexemeku, K Yairel SIGALA Unavailable Unavailable Xexemeku, K Yariel SIGALA [...] Yariel SIGALA Unavailable Unavailable Xexemeku, K Yariel ISGALA Unavailable Unavailable Xexemeku, K Yariel SIGALA Unavailable [...] MD Unavailable Unavailable HAMMADMAVERICK MD Unavailable Unavailable HAMMADMAVERIKC MD Unavailable Unavailable HAMMADMAVERICK MD Unavailable Unavailable [...] Mcclure MD Unavailable Unavailable Walker, H Danni SADDLE TREE STITCHER Unavailable Unavailable Walker, H Danni SADDLE TREE STITCHER Unavailable Unavailable Walker, H Danni SADDLE TREE STITCHER Unavailable Unavailable Walker, H Danni SADDLE TREE STITCHER Unavailable Unavailable Walker, H Danni SADDLE TREE STITCHER Unavailable Unavailable Walker, H Danni SADDLE TREE STITCHER Unavailable Unavailable Walker, H Danni SADDLE TREE STITCHER Unavailable Unavailable Walker, H Danni SADDLE TREE STITCHER Unavailable Unavailable Walker, H Danni SADDLE TREE STITCHER Unavailable Unavailable Walker, H Danni SADDLE TREE STITCHER Unavailable Unavailable Walker, H Danni SADDLE TREE STITCHER Unavailable Unavailable Walker, H Danni SADDLE TREE STITCHER Unavailable Unavailable Walker, H Danni SADDLE TREE STITCHER Unavailable Unavailable Walker, H Danni SADDLE TREE STITCHER Unavailable Unavailable Walker, H Danni SADDLE TREE STITCHER Unavailable Unavailable Walker, H Danni SADDLE TREE STITCHER Unavailable Unavailable Walker, H Danni SADDLE TREE STITCHER Unavailable Unavailable Walker, H Danni SADDLE TREE STITCHER Unavailable Unavailable Walker, H Danni SADDLE TREE STITCHER Unavailable Unavailable Walker, H Danni SADDLE TREE STITCHER Unavailable Unavailable Walker, H Danni SADDLE TREE STITCHER Unavailable Unavailable Walker, H Danni SADDLE TREE STITCHER Unavailable Unavailable Walker, H Danni SADDLE TREE STITCHER Unavailable Unavailable Walker, H Danni SADDLE TREE STITCHER Unavailable Unavailable Walker, H Danni SADDLE TREE STITCHER Unavailable Unavailable Walker, H Danni SADDLE TREE STITCHER Unavailable Unavailable Walker, H Danni SADDLE TREE STITCHER Unavailable Unavailable Walker, H Danni SADDLE TREE STITCHER Unavailable Unavailable Walker, H Danni SADDLE TREE STITCHER Unavailable Unavailable Walker, H Danni SADDLE TREE STITCHER Unavailable Unavailable Walker, H Danni SADDLE TREE STITCHER Unavailable Unavailable Walker, H Danni SADDLE TREE STITCHER Unavailable Unavailable Walker, H Danni SADDLE TREE STITCHER Unavailable Unavailable Walker, H Danni SADDLE TREE STITCHER Unavailable Unavailable Walker, H Danni SADDLE TREE STITCHER Unavailable Unavailable Walker, H Danni SADDLE TREE STITCHER Unavailable Unavailable Walker, H Danni SADDLE TREE STITCHER Unavailable Unavailable Walker, H Danni SADDLE TREE STITCHER Unavailable Unavailable Walker, H Danni SADDLE TREE STITCHER Unavailable Unavailable Walker, H Danni SADDLE TREE STITCHER Unavailable Unavailable Walker, H Danni SADDLE TREE STITCHER Unavailable Unavailable Walker, H Danni SADDLE TREE STITCHER Unavailable Unavailable Walker, H Danni SADDLE TREE STITCHER Unavailable Unavailable Walker, H Danni SADDLE TREE STITCHER Unavailable Unavailable Walker, H Danni SADDLE TREE STITCHER Unavailable Unavailable Walker, H Danni SADDLE TREE STITCHER Unavailable Unavailable Walker, H Danni SADDLE TREE STITCHER Unavailable Unavailable Walker, H Danni SADDLE TREE STITCHER Unavailable Unavailable Walker, H Danni SADDLE TREE STITCHER Unavailable Unavailable Walker, H Danni SADDLE TREE STITCHER Unavailable Unavailable RHODA, 0000{ Unavailable Unavailable MADISON [...] is protected by Article 27-F of the [facility] Public Health law. If you continue you may have access to information: Regarding HIV / AIDS; Provided by facilities licensed or operated by the [facility] Office of Mental Health; or Provided by the [facility] Office for People With Developmental Disabilities. If such information is present, then the following [facility] mandated warning applies: This information has been [...] law may result in a fine or residential sentence or both. A general authorization for the release of medical or other information is NOT sufficient authorization for further disc losure. Allergies and Adverse Reactions Type Description Substance Reaction Status Data Source(s ) Drug allergy Dilaudid Hydromorphone Dyspnea Active eCW1 ([facility]) Family History Family Member Name Family Member Gender Family Member Status Date o f Status Description Data Source(s) Unknown Female Problem MEDENT ([facility]) Unknown Male Problem MEDENT ([facility] () - in his 30's Encounters Encounter Providers Location Date Indications Data Source(s ) Outpatient Attender: Ina Gallardo MD 06/05/2021 12:00:0 0 AM [facility] Outpatient Attender: Riaz Fisher 02/27/2021 12:00:0 0 AM [facility] Outpatient Attender: Riaz Fisher 02/15/2021 12:00:0 0 AM [facility] Outpatient Attender: VETO PIEDRA 12/29/2020 12:00:00 AM [facility] ([id number]) For Template [place] [address] [place] [address] 11/15/2020 12:00:00 AM EST eCW1 ([facility]) Outpatient Attender: Riaz Fisher [id number] 03/2021 12:00:00 AM EST - 11/14/2020 12:17:20 PM EST Type 2 diabetes mellitus with hypoglycem ia without coma [facility] Type 2 diabetes mellitus with hypoglycem ia without coma ([id number]) [facility] [place] [address] [place] [address] 11/01/2020 12:00:00 AM EST eCW1 ([facility]) Outpatient Attender: Kevin Martin/Caitlin/Pedrito/Erma indl 10/31/2020 07:40:00 AM EST MEDENT ([facility]) Unknown [address] [facility] [address] 10/25/2020 12:00:00 AM EST eCW1 ([facility]) Unknown [address] [facility] [address] 10/25/2020 12:00:00 AM EST eCW1 ([facility]) Outpatient Attender: Kevin Martin/Fenton/Pedrito/Re indl 10/24/2020 07:00:00 AM EST MEDENT ([facility]) Outpatient [address] [facility] [address] 10/18/2020 12:00:00 AM EST eCW1 ([facility]) Outpatient Attender: Kevin Martin/Fenton/Pedrito/Re indl 10/16/2020 07:10:00 AM EST MEDENT ([facility]) Office Visit Attender: Danni Garcia NP CMP Internal Med [place] 10/09/2020 09:30:00 AM EST MEDENT ([facility]) ([id number]) For [facility] [place] [address] 10/04/2020 12:00:00 AM EST eCW1 ([facility]) Outpatient [address] [facility] [address] 10/03/2020 12:00:00 AM EST eCW1 ([facility]) Unknown [address] [facility] [address] 10/02/2020 12:00:00 AM EST eCW1 ([facility]) Outpatient Attender: VETO PIEDARReferrer: Agustin Boogie MD 07 [id number] 09/29/2020 12:00:00 AM EST - 09/29/2020 11:32:18 AM EST Dysphagia, unspecified [facility] Dysphagia, unspecified Outpatient Attender: VETO PIEDRA 09/29/2020 12:00:00 AM [facility] Unknown [address] [facility] [address] 09/28/2020 12:00:00 AM EST eCW1 ([facility]) Outpatient Referrer: MAVERICK CUEVA MD 09/28/2020 12:00:00 A M [facility] ([id number]) For [facility] [place] [address] 09/27/2020 12:00:00 AM EST eCW1 ([facility]) [place] [address] [facility] [address] 09/18/2020 12:00:00 AM EST eCW1 ([facility]) Unknown [address] [facility] [place] [address] 09/13/2020 12:00:00 AM EST eCW1 ([facility]) Unknown [address] [facility] [place] [address] 09/13/2020 12:00:00 AM EST eCW1 ([facility]) Outpatient [address] [facility] [place] [address] 09/13/2020 12:00:00 AM EST eCW1 ([facility]) Unknown [address] [facility] [address] 09/12/2020 12:00:00 AM EST eCW1 ([facility]) (PT/INR TV) Telephone Encounter Visit [address] [place] [address] 09/11/2020 12:00:00 AM EST eCW1 ([facility]) Unknown [address] [facility] [address] 09/11/2020 12:00:00 AM EST eCW1 ([facility]) Office Visit Attender: Danni Garcia NP CMP Internal Med at [facility] 09/08/2020 09:30:00 AM EDT MEDENT ([facility]) ([id number]) For [place] [address] [place] [address] 09/06/2020 12:00:00 AM EDT eCW1 ([facility]) Office Visit Attender: CAS VILLEGAS DO CMP Internal Med at [place] 09/01/2020 03:13:00 AM EDT MEDENT ([facility]) Office Visit Attender: Delio Olivera MD CMP Internal Med at [place] 08/30/2020 03:33:00 AM EDT [facility] ([facility]) Inpatient Attender: Delio Olivera MD 08/29/2020 06:50 :48 AM EDT [facility] Inpatient Attender: Delio Olivera MDAdmitter: Delio Olivera MD 08/29/2020 06:25:00 AM EDT - 09/01/2020 12:38:00 PM EDT OBESITY, E66.01 [facility] OBESITY, E66.01 Patient discharged. [place] ( in Healthcare facility) Attender: Sajan Olivera MDAdmitter: Delio Olivera MDConsultant: MARCO JAYLIN 08/29/2020 06:25:00 A M EDT [facility] Out[place] [address] [facility] [address] 08/28/2020 12:00:00 AM EDT eCW1 ([facility]) [place] [address] [facility] [address] 08/28/2020 12:00:00 AM EDT eCW1 ([facility]) Out[place] [address] [facility] [address] 08/25/2020 12:00:00 AM EDT eCW1 ([facility]) Unknown [address] [facility] [address] 08/25/2020 12:00:00 AM EDT eCW1 ([facility]) [place] [address] [facility] [address] 08/24/2020 12:00:00 AM EDT eCW1 ([facility]) Out[place] [address] [facility] [address] 08/23/2020 12:00:00 AM EDT eCW1 ([facility]) Outpatient [address] [facility] [address] 08/22/2020 12:00:00 AM EDT eCW1 ([facility]) Outpatient Attender: Delio Olivera MD [facility] Internal Med at [place] 08/21/2020 12:30:00 PM EDT [facility] ([facility] [place] [address] [facility] [address] 08/16/2020 12:00:00 AM EDT eCW1 ([facility]) Unknown [address] [facility] [address] 08/16/2020 12:00:00 AM EDT eCW1 ([facility]) Unknown [address] [facility] [address] 08/14/2020 12:00:00 AM EDT eCW1 ([facility]) Outpatient Attender: VETO PIEDRA 08/11/2020 12:00:00 AM ED [facility] Outpatient [address] [facility] [address] 08/10/2020 12:00:00 AM EDT eCW1 ([facility]) Outpatient Attender: 0000{ RHODA 08/09/2020 10:31:00 AM E DT [facility] Outpatient Attender: Delio Olivera MD 08/09/2020 10:31:00 AM EDT [facility]ES[facility] Outpatient Attender: Ina Gallardo MD [id number] 08/08/2020 1 2:00:00 AM EDT Type 2 diabetes mellitus with hyperglycemia [facility] Type 2 diabetes mellitus with hyperglyce doug Outpatient Attender: Riaz Fisher 08/08/2020 12:00:0 0 AM [facility] Outpatient Attender: Yariel Lemon MD CMP [place] 07/24/2020 01:45:00 PM EDT MEDENT ([facility]) Outpatient Attender: Danni Garcia NP CMP Internal Med [place] 07/21/2020 09:00:00 AM EDT MEDENT ([facility]) Outpatient Attender: MAVERICK CUEVA MD [id number] 07/21/2020 12:00:00 AM [facility] [address] [place] [address] 07/14/2020 12:00:00 AM EDT eCW1 ([facility]) Outpatient Attender: Riaz Fisher [id number] 07/06/2020 1 2:00:00 AM [facility] Outpatient Attender: Riaz Fisher 06/13/2020 12:00:0 0 AM EDT [facility] Outpatient Attender: Ren Weaver MD 06/12/2020 10:17: 54 AM EDT [facility] Outpatient Attender: Ren Weaver MDAdmitter: Ren vallejo MD 06/12/2020 08:48:00 AM EDT - 06/12/2020 03:30:00 PM EDT ABNORMAL NUCLEAR TEST LEFT HEART CATH [facility] ABNORMAL NUCLEAR TEST LEFT HEART CATH Patient discharged. Outpatient Referrer: MAVERICK CUEVA MD 06/12/2020 12:00:00 A M T [facility] Outpatient Attender: Radha Cochran NP CMP Internal Med at [place] 06/09/2020 01:45:00 PM EDT [facility] ([facility]) [place] [address] [facility] [address] 05/26/2020 12:00:00 AM EDT [facility] [place] [address] [facility] [address] 05/25/2020 12:00:00 AM EDT eCW1 ([facility]) Unknown [address] [facility] [address] 05/24/2020 12:00:00 AM EDT eCW1 ([facility]) [facility] [address] [facility] [address] 05/17/2020 12:00:00 AM EDT eCW1 ([facility]) Outpatient Attender: Yariel Lemon MD CMP [place] 05/01/2020 03:45:00 PM EDT MEDENT ([facility]) Outpatient Attender: Yariel Lemon MD 05/01/2020 11: 48:00 AM EDT [place] [address] [address] [address] [facility] [place] [address] [place] [address] [place] [address] [facility] [address] 04/28/2020 12:00:00 AM EDT eCW1 ([facility]) Outpatient Attender: MADISON HAYWARD MD Physical Therapy 08:15:00 AM EDT MEDENT ([facility]) Outpatient Attender: JOE [facility] 04/18/2020 07:39:07 PM E DT [facility] Unknown [address] [facility] [address] 04/18/2020 12:00:00 AM EDT eCW1 ([facility]) Unknown [address] [facility] [address] 04/17/2020 12:00:00 AM EDT eCW1 [facility]) Outpatient Attender: Kevin Martin/Caitlin/Pedrito/Re indl 04/12/2020 10:40:00 AM EDT MEDENT ([facility]) [place] [address] [facility] [address] 04/11/2020 12:00:00 AM EDT eCW1 ([facility]) Outpatient Referrer: Kevin Youssef MD 04/10/2020 09:23:00 PM EDT [facility] Outpatient Attender: JOE [facility] 04/08/2020 12:11:51 AM E DT [facility] [place] [address] [facility] [address] 04/06/2020 12:00:00 AM EDT eCW1 ([facility]) Outpatient Referrer: Kevin Youssef MD 04/04/2020 09:10:00 AM EDT [facility] [place] [address] [facility] [address] 04/04/2020 12:00:00 AM EDT eCW1 ([facility]) [facility] [place] [address] [facility] [address] 03/31/2020 12:00:00 AM EDT eCW1 ([facility]) Outpatient Referrer: Kevin Youssef MD 03/27/2020 09:18:00 AM EDT [facility] Outpatient Attender: Danni Garcia NP CMP Internal Med [place] 03/22/2020 10:30:00 AM EDT MEDENT ([facility]) MARCIA Hussein: [address], [place] [address], Ph. Attender: Danni Garcia NP [facility] - Main Schedule 03/22/2020 12:00:00 AM EDT AKIRA ([facility]) Outpatient Referrer: Kevin Youssef MD 03/20/2020 09:06:00 AM EDT [facility] Outpatient Attender: Kevin Martin/Caitlin/Pedrito/Re indl 03/15/2020 10:00:00 AM EDT MEDENT ([facility] [address] [address] 03/14/2020 12:00:00 AM EDT eCW1 ([facility]) [address] [address] 03/07/2020 12:00:00 AM EDT eCW1 ([facility]) [address] [address] 03/06/2020 12:00:00 AM EDT eCW1 ([facility]) Outpatient Attender: Riaz Fisher [id number] 03/03/2020 1 2:00:00 AM EDT Hyperlipidemia, unspecified [facility] Hyperlipidemia, unspecified [address] [address] 03/03/2020 12:00:00 AM EDT eCW1 ([facility]) [address] [address] 03/03/2020 12:00:00 AM EDT eCW1 ([facility]) Outpatient Attender: MAVERICK CUEVA MD [id number] 02/25/2020 12:00:00 AM EDT [facility] Outpatient Attender: Danni Garcia NP CMP Internal Med [place] 02/16/2020 11:00:00 AM EDT MEDENT ([facility]) MARCIA Hussein: [address], [place] [address], Ph. Attender: Danni Garcia SADDLE TREE STITCHER [facility] - Main Schedule 02/16/2020 12:00:00 AM EDT AKIRA ([facility]) ALVARO HusseinP: [address], [place] [address], Ph. Attender: Danni Garcia SADDLE TREE STITCHER [facility] - Main Schedule 02/16/2020 12:00:00 AM EDT AKIRA ([facility]) Outpatient Attender: Riaz Fisher 02/16/2020 12:00:0 0 AM EDT [facility] [address] [place] [address] 02/14/2020 12:00:00 AM EDT eCW1 ([facility]) Outpatient Referrer: MD MARGAUX REYNOLDS 02/10/2020 05:45: 00 AM EDT [facility] [address] [place] [address] 02/09/2020 12:00:00 AM EDT eCW1 ([facility]) [address] [address] 02/07/2020 12:00:00 AM EDT eCW1 ([facility]) [address] [address] 02/04/2020 12:00:00 AM EDT eCW1 ([facility]) [address] [address] 02/03/2020 12:00:00 AM EDT eCW1 ([facility]) [address] [address] 02/02/2020 12:00:00 AM EDT eCW1 ([facility]) [address] [address] 01/31/2020 12:00:00 AM EDT eCW1 ([facility]) [facility] [address] [place] [address] [address] 01/28/2020 12:00:00 AM EDT eCW1 ([facility]) [address] [address] 01/27/2020 12:00:00 AM EDT eCW1 ([facility]) [facility] [address] [place] [id number] 01/27/2020 12:00:00 AM EDT eCW1 ([facility]) [address] [address] 01/27/2020 12:00:00 AM EDT eCW1 ([facility]) Outpatient Referrer: MD MARGAUX REYNOLDS 01/25/2020 10:34: 00 AM EDT [facility] [address] [address] 01/18/2020 12:00:00 AM EDT eCW1 ([facility]) [address] [address] 01/17/2020 12:00:00 AM EDT eCW1 ([facility]) Outpatient Attender: Yariel Lemon MD [facility] [place] 01/10/2020 01:30:00 PM EST MEDENT ([facility]) Outpatient Attender: Yasir Gonzalez MD Physical Therapy 12/2019 07:30:00 AM EST MEDENT ([facility]) Outpatient Referrer: MD MARGAUX REYNOLDS 01/04/2020 12:09: 00 PM EST [facility] [address] [address] 01/03/2020 12:00:00 AM EST eCW1 ([facility]) [address] [address] 12/29/2019 12:00:00 AM EST eCW1 ([facility]) [facility] [address] [place] [address] 12/22/2019 12:00:00 AM EST eCW1 ([facility]) Outpatient Attender: Riaz Fisher 12/21/2019 12:00:0 0 AM EST [facility] [address] [place] [address] 12/16/2019 12:00:00 AM EST eCW1 ([facility]) Outpatient Attender: Danni Garcia NP [facility] at [facility] 12/15/2019 09:58:00 AM EST MEDENT ([facility]) Outpatient Attender: 0000{ [place] 12/15/2019 09:36:00 AM E [facility] Outpatient Attender: Danni Garcia NP 12/15/2019 09:3 6:00 AM EST PERSONAL HISTORY OF OTHER VENOUS THROMBOSIS AND EMBOLISM/ MO [facility] PERSONAL HISTORY OF OTHER VENOUS THROMBO SIS AND EMBOLISM/ MO MARCIA Hussein: [address], [place] [address], Ph. Attender: Danni Garcia NP [facility] - Main Schedule 12/15/2019 12:00:00 AM EST AKIRA ([facility]) MARCIA Hussein: [address], [place] [address], Ph. Attender: Danni Garcia NP [facility] sicians - Main Schedule 12/15/2019 12:00:00 AM EST AKIRA ([facility]) MARCIA Hussein: [address], [place] [address], Ph. Attender: Danni Garcia NP [facility] - Main Schedule 12/15/2019 12:00:00 AM EST AKIRA ([facility]) [facility] [address] [address] 12/01/2019 12:00:00 AM EST eCW1 ([facility]) Outpatient Attender: MAVERICK CUEVA MD [id number] 2019 12:00:00 AM EST - 11/19/2019 01:20:43 PM EST Unspecified osteoarthritis, unspecified site [facility] Unspecified osteoarthritis, unspecified site MARCIA Hussein: [address], [place] [address], Ph. Attender: Danni Garcia NP [facility] sicians - Main Schedule 11/01/2019 12:00:00 AM EST AKIRA ([facility]) MARCIA Hussein: [address], [place] [address], Ph. Attender: Danni Garcia NP [facility] - Main Schedule 11/01/2019 12:00:00 AM EST AKIRA ([facility]) MARCIA Hussein: [address], [place] [address], Ph. Attender: Danni Garcia NP [facility] - Main Schedule 11/01/2019 12:00:00 AM EST AKIRA ([facility]) MARCIA Hussein: [address], [place] [address], Ph. Attender: Danni Garcia NP [facility] - Main Schedule 11/01/2019 12:00:00 AM EST AKIRA ([facility]) Outpatient Attender: MAVERICK CUEVA MD 10/29/2019 12:00:00 A M EST [facility] [address] [place] [address], [place] [address] 10/18/2019 12:00:00 AM EST eCW1 ([facility]) [address] [address] 10/18/2019 12:00:00 AM EST eCW1 ([facility]) Outpatient Referrer: MD MARGAUX REYNOLDS 10/13/2019 09:02: 00 PM EST [facility] [place] [address] [facility] [address] 10/01/2019 12:00:00 AM EST eCW1 ([facility]) Outpatient Attender: MAVERICK CUEVA MD [id number] 2018 12:00:00 AM EDT - 04/23/2019 12:19:28 PM EDT Rheumatoid arthritis with rheumatoid fac tor, unspecified [facility] Rheumatoid arthritis with rheumatoid fac tor, unspecified Immunizations Vaccine Date Status Description Data Source(s) IIV3. This is one of two codes replacing CVX 15, which is being retired. 08/23/2020 08:20:00 AM EDT completed eCW1 ([facility]) IIV3. This is one of two codes replacing CVX 15, which is being retired. 08/23/2020 08:20:00 AM EDT completed eCW1 ([facility]) IIV3. This is one of two codes replacing CVX 15, which is being retired. 08/23/2020 08:20:00 AM EDT completed eCW1 ([facility]) IIV3. This is one of two codes replacing CVX 15, which is being retired. 08/23/2020 08:20:00 AM EDT completed eCW1 ([facility]) IIV3. This is one of two codes replacing CVX 15, which is being retired. 08/23/2020 08:20:00 AM EDT completed eCW1 ([facility]) IIV3. This is one of two codes replacing CVX 15, which is being retired. 08/23/2020 08:20:00 AM EDT completed eCW1 ([facility]) IIV3. This is one of two codes replacing CVX 15, which is being retired. 08/23/2020 08:20:00 AM EDT completed eCW1 ([facility]) IIV3. This is one of two codes replacing CVX 15, which is being retired. 08/23/2020 08:20:00 AM EDT completed eCW1 ([facility]) IIV3. This is one of two codes replacing CVX 15, which is being retired. 08/23/2020 08:20:00 AM EDT completed eCW1 ([facility]) IIV3. This is one of two codes replacing CVX 15, which is being retired. 08/23/2020 08:20:00 AM EDT completed eCW1 ([facility]) IIV3. This is one of two codes replacing CVX 15, which is being retired. 08/23/2020 08:20:00 AM EDT completed eCW1 ([facility]) IIV3. This is one of two codes replacing CVX 15, which is being retired. 08/23/2020 08:20:00 AM EDT completed eCW1 ([facility]) IIV3. This is one of two codes replacing CVX 15, which is being retired. 08/23/2020 08:20:00 AM EDT completed eCW1 ([facility]) IIV3. This is one of two codes replacing CVX 15, which is being retired. 08/23/2020 08:20:00 AM EDT completed eCW1 ([facility]) IIV3. This is one of two codes replacing CVX 15, which is being retired. 08/23/2020 08:20:00 AM EDT completed eCW1 ([facility]) IIV3. This is one of two codes replacing CVX 15, which is being retired. 08/23/2020 08:20:00 AM EDT completed eCW1 ([facility]) IIV3. This is one of two codes replacing CVX 15, which is being retired. 08/23/2020 08:20:00 AM EDT completed eCW1 ([facility]) IIV3. This is one of two codes replacing CVX 15, which is being retired. 08/23/2020 08:20:00 AM EDT completed eCW1 ([facility]) IIV3. This is one of two codes replacing CVX 15, which is being retired. 08/23/2020 08:20:00 AM EDT completed eCW1 ([facility]) IIV3. This is one of two codes replacing CVX 15, which is being retired. 08/23/2020 08:20:00 AM EDT completed eCW1 ([facility]) IIV3. This is one of two codes replacing CVX 15, which is being retired. 08/23/2020 08:20:00 AM EDT completed eCW1 ([facility]) IIV3. This is one of two codes replacing CVX 15, which is being retired. 08/23/2020 08:20:00 AM EDT completed eCW1 ([facility]) IIV3. This is one of two codes replacing CVX 15, which is being retired. 08/23/2020 08:20:00 AM EDT completed eCW1 ([facility]) IIV3. This is one of two codes replacing CVX 15, which is being retired. 08/23/2020 08:20:00 AM EDT completed eCW1 ([facility]) IIV3. This is one of two codes replacing CVX 15, which is being retired. 08/23/2020 08:20:00 AM EDT completed eCW1 ([facility]) IIV3. This is one of two codes replacing CVX 15, which is being retired. 08/23/2020 08:20:00 AM EDT completed eCW1 ([facility]) IIV3. This is one of two codes replacing CVX 15, which is being retired. 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 MDD 102 units. DX: E11.65 [facility] Type 2 diabetes mellitus with hypoglycem ia unawareness levocetirizine dihydrochloride 5 MG Oral Tablet Levocetirizine Dihydrochloride 5 MG Oral Tablet (XYZAL) Levocetirizine Dihydrochloride 5 MG Oral Tablet (XYZAL ) 11/07/2020 12:00:00 AM EST aborted [facility] Gelsyn-3 Gelsyn-3 10/16/2020 12:00:00 AM EST activ e MEDENT ([facility] ) Methotrexate 2.5 MG Oral Tablet Methotrexate 2.5 MG Oral Tab let 09/29/2020 12:00:00 AM EST 20 mg Oral active Seropositive rhe umatoid arthritis Take 8 tablets by mouth every 7 (seven) days [facility] Seropositive rheumatoid arthritis Polymyxin B 90402 UNT/ML / Trimethoprim 1 MG/ML Ophthalmic Solution [Polytrim] Polytrim 24746-3.1 UNIT/ML Polytrim 52489-6.1 UNIT/ML 09/13/2020 12:00:00 AM EST active Polytrim 62990-3. 1 UNIT/ML eCW1 ([facility]) Polymyxin B 35682 UNT/ML / Trimethoprim 1 MG/ML Ophthalmic Solution [Polytrim] Polytrim 53870-7.1 UNIT/ML Polytrim 82213-6.1 UNIT/ML 09/13/2020 12:00:00 AM EST active Polytrim 58737-8. 1 UNIT/ML eCW1 ([facility]) Polymyxin B 79999 UNT/ML / Trimethoprim 1 MG/ML Ophthalmic Solution [Polytrim] Polytrim 66529-1.1 UNIT/ML Polytrim 16569-9.1 UNIT/ML 09/13/2020 12:00:00 AM EST suspended Polytrim 27770 -0.1 UNIT/ML eCW1 ([facility]) Polymyxin B 73342 UNT/ML / Trimethoprim 1 MG/ML Ophthalmic Solution [Polytrim] Polytrim 08416-3.1 UNIT/ML Polytrim 59846-2.1 UNIT/ML 09/13/2020 12:00:00 AM EST active Polytrim 98892-4. 1 UNIT/ML eCW1 ([facility]) Polymyxin B 70748 UNT/ML / Trimethoprim 1 MG/ML Ophthalmic Solution [Polytrim] Polytrim 18076-8.1 UNIT/ML Polytrim 31045-0.1 UNIT/ML 09/13/2020 12:00:00 AM EST active Polytrim 09931-7. 1 UNIT/ML eCW1 ([facility]) Polymyxin B 80032 UNT/ML / Trimethoprim 1 MG/ML Ophthalmic Solution [Polytrim] Polytrim 29083-8.1 UNIT/ML Polytrim 76441-6.1 UNIT/ML 09/13/2020 12:00:00 AM EST suspended Polytrim 23882 -0.1 UNIT/ML eCW1 ([facility]) Polymyxin B 40064 UNT/ML / Trimethoprim 1 MG/ML Ophthalmic Solution [Polytrim] Polytrim 45055-9.1 UNIT/ML Polytrim 29168-0.1 UNIT/ML 09/13/2020 12:00:00 AM EST active Polytrim 75160-7. 1 UNIT/ML eCW1 ([facility]) Polymyxin B 03925 UNT/ML / Trimethoprim 1 MG/ML Ophthalmic Solution [Polytrim] Polytrim 03986-1.1 UNIT/ML Polytrim 19883-1.1 UNIT/ML 09/13/2020 12:00:00 AM EST suspended Polytrim 82005 -0.1 UNIT/ML eCW1 ([facility]) Polymyxin B 73182 UNT/ML / Trimethoprim 1 MG/ML Ophthalmic Solution [Polytrim] Polytrim 23797-1.1 UNIT/ML Polytrim 08984-5.1 UNIT/ML 09/13/2020 12:00:00 AM EST suspended Polytrim 19587 -0.1 UNIT/ML eCW1 ([facility]) Polymyxin B 28297 UNT/ML / Trimethoprim 1 MG/ML Ophthalmic Solution [Polytrim] Polytrim 94808-1.1 UNIT/ML Polytrim 22366-2.1 UNIT/ML 09/13/2020 12:00:00 AM EST suspended Polytrim 54090 -0.1 UNIT/ML eCW1 ([facility]) Polymyxin B 74220 UNT/ML / Trimethoprim 1 MG/ML Ophthalmic Solution [Polytrim] Polytrim 50982-2.1 UNIT/ML Polytrim 34147-0.1 UNIT/ML 09/13/2020 12:00:00 AM EST suspended Polytrim 54439 -0.1 UNIT/ML eCW1 ([facility]) Polymyxin B 32379 UNT/ML / Trimethoprim 1 MG/ML Ophthalmic Solution [Polytrim] Polytrim 41452-3.1 UNIT/ML Polytrim 10032-0.1 UNIT/ML 09/13/2020 12:00:00 AM EST suspended Polytrim 13429 -0.1 UNIT/ML eCW1 ([facility]) Polymyxin B 35963 UNT/ML / Trimethoprim 1 MG/ML Ophthalmic Solution [Polytrim] Polytrim 75489-7.1 UNIT/ML Polytrim 07447-2.1 UNIT/ML 09/13/2020 12:00:00 AM EST suspended Polytrim 69775 -0.1 UNIT/ML eCW1 ([facility]) Polymyxin B 41875 UNT/ML / Trimethoprim 1 MG/ML Ophthalmic Solution [Polytrim] Polytrim 97637-4.1 UNIT/ML Polytrim 06963-9.1 UNIT/ML 09/13/2020 12:00:00 AM EST suspended Polytrim 99732 -0.1 UNIT/ML eCW1 ([facility]) Polymyxin B 22207 UNT/ML / Trimethoprim 1 MG/ML Ophthalmic Solution [Polytrim] Polytrim 24648-8.1 UNIT/ML Polytrim 96925-1.1 UNIT/ML 09/13/2020 12:00:00 AM EST active Polytrim 27809-1. 1 UNIT/ML eCW1 ([facility]) Polymyxin B 22642 UNT/ML / Trimethoprim 1 MG/ML Ophthalmic Solution [Polytrim] Polytrim 90610-3.1 UNIT/ML Polytrim 67656-9.1 UNIT/ML 09/13/2020 12:00:00 AM EST active Polytrim 82697-1. 1 UNIT/ML eCW1 ([facility]) Unifine Pentips Plus 31G X 5 MM (Insulin Pen Needle) 8470-38 5001 09/12/2020 12:00:00 AM EST active Type 2 diabetes mellitus with hyperglycemia, with long-term current use of insulin USE TO INJECT INSULIN FOUR TIMES A DAY [facility] Type 2 diabetes mellitus with hyperglyce doug, with long-term current use of insulin [employer] w/Device Kit 71349-433-54 08/08/2020 12:00:00 AM EDT 1 {each} Does not apply active Type 2 diabetes mellitus with hyperglycemia, with long-term current use of insulin 1 each by Does not ap ply route daily DX E 11.65 [facility] Type 2 diabetes mellitus with hyperglyce doug, with long-term current use of insulin 24 HR Metformin hydrochloride 500 MG Ext ended Release Oral Tablet metFORMIN HCl ER 500 MG Oral Tablet Extended Release 24 Hour (GLUCOPHAGE-XR) metFORMIN HCl ER 500 MG Oral Tablet Extended Release 24 Hour (GLUCOPHAGE-XR) 07/06/2020 12:00:00 AM EDT active Take one tablet with breakfast and 2 tablets with dinner [facility] Sulfamethoxazole 800 MG / Trimethoprim 160 MG [...] Zofran 06/09/2020 12:00:00 AM EDT active MEDENT ([facility]) Aspirin 81 MG Delayed Release Oral Tablet Aspirin 81 2019 12:00:00 AM EDT ORAL completed MEDENT ([facility]) 24 HR metoprolol succinate 25 MG Extended Release Oral Tablet Metoprolol Succinate ER 05/01/2020 12:00:00 AM EDT active MEDENT ([facility]) Unifine Pentips Plus 31G X 5 MM (Insulin Pen Needle) 8470-38 5001 03/09/2020 12:00:00 AM EDT active Type 2 diabetes mellitus with hyperglycemia, with long-term current use of insulin USE DIRECTED TO INJECT INSULIN FOUR TIMES A DAY [facility] Type 2 diabetes mellitus with hyperglyce doug, with long-term current use of insulin levocetirizine dihydrochloride 5 MG Oral Tablet Levocetirizine Dihydrochloride 5 MG Levocetirizine Dihydrochloride 5 MG 03/07/2020 12:00:00 AM EDT 1.0 {tablet_in_the_evening} active Levoceti rizine Dihydrochloride 5 MG eCW1 ([facility]) levocetirizine dihydrochloride 5 MG Oral Tablet Levocetirizine Dihydrochloride 5 MG Levocetirizine Dihydrochloride 5 MG 03/07/2020 12:00:00 AM EDT 1.0 {tablet_in_the_evening} active Levoceti rizine Dihydrochloride 5 MG eCW1 ([facility]) levocetirizine dihydrochloride 5 MG Oral Tablet Levocetirizine Dihydrochloride 5 MG Levocetirizine Dihydrochloride 5 MG 03/07/2020 12:00:00 AM EDT 1.0 {tablet_in_the_evening} active Levoceti rizine Dihydrochloride 5 MG eCW1 ([facility]) levocetirizine dihydrochloride 5 MG Oral Tablet Levocetirizine Dihydrochloride 5 MG Levocetirizine Dihydrochloride 5 MG 03/07/2020 12:00:00 AM EDT 1.0 {tablet_in_the_evening} active Levoceti rizine Dihydrochloride 5 MG eCW1 ([facility]) levocetirizine dihydrochloride 5 MG Oral Tablet Levocetirizine Dihydrochloride 5 MG Levocetirizine Dihydrochloride 5 MG 03/07/2020 12:00:00 AM EDT 1.0 {tablet_in_the_evening} active Levoceti rizine Dihydrochloride 5 MG eCW1 ([facility]) levocetirizine dihydrochloride 5 MG Oral Tablet Levocetirizine Dihydrochloride 5 MG Levocetirizine Dihydrochloride 5 MG 03/07/2020 12:00:00 AM EDT 1.0 {tablet_in_the_evening} active Levoceti rizine Dihydrochloride 5 MG eCW1 ([facility]) levocetirizine dihydrochloride 5 MG Oral Tablet Levocetirizine Dihydrochloride 5 MG Levocetirizine Dihydrochloride 5 MG 03/07/2020 12:00:00 AM EDT active 1 tablet in the evening eCW1 ([facility]) levocetirizine dihydrochloride 5 MG Oral Tablet Levocetirizine Dihydrochloride 5 MG Levocetirizine Dihydrochloride 5 MG 03/07/2020 12:00:00 AM EDT 1.0 {tablet_in_the_evening} active Levoceti rizine Dihydrochloride 5 MG eCW1 ([facility]) levocetirizine dihydrochloride 5 MG Oral Tablet Levocetirizine Dihydrochloride 5 MG Levocetirizine Dihydrochloride 5 MG 03/07/2020 12:00:00 AM EDT 1.0 {tablet_in_the_evening} active Levoceti rizine Dihydrochloride 5 MG eCW1 ([facility]) levocetirizine dihydrochloride 5 MG Oral Tablet Levocetirizine Dihydrochloride 5 MG Levocetirizine Dihydrochloride 5 MG 03/07/2020 12:00:00 AM EDT 1.0 {tablet_in_the_evening} active Levoceti rizine Dihydrochloride 5 MG eCW1 ([facility]) levocetirizine dihydrochloride 5 MG Oral Tablet Levocetirizine Dihydrochloride 5 MG Levocetirizine Dihydrochloride 5 MG 03/07/2020 12:00:00 AM EDT 1.0 {tablet_in_the_evening} active Levoceti rizine Dihydrochloride 5 MG eCW1 ([facility]) levocetirizine dihydrochloride 5 MG Oral Tablet Levocetirizine Dihydrochloride 5 MG Levocetirizine Dihydrochloride 5 MG 03/07/2020 12:00:00 AM EDT 1.0 {tablet_in_the_evening} active Levoceti rizine Dihydrochloride 5 MG eCW1 ([facility]) levocetirizine dihydrochloride 5 MG Oral Tablet Levocetirizine Dihydrochloride 5 MG Levocetirizine Dihydrochloride 5 MG 03/07/2020 12:00:00 AM EDT 1.0 {tablet_in_the_evening} active Levoceti rizine Dihydrochloride 5 MG eCW1 ([facility]) levocetirizine dihydrochloride 5 MG Oral Tablet Levocetirizine Dihydrochloride 5 MG Levocetirizine Dihydrochloride 5 MG 03/07/2020 12:00:00 AM EDT 1.0 {tablet_in_the_evening} active Levoceti rizine Dihydrochloride 5 MG eCW1 ([facility]) levocetirizine dihydrochloride 5 MG Oral Tablet Levocetirizine Dihydrochloride 5 MG Levocetirizine Dihydrochloride 5 MG 03/07/2020 12:00:00 AM EDT 1.0 {tablet_in_the_evening} active Levoceti rizine Dihydrochloride 5 MG eCW1 ([facility]) levocetirizine dihydrochloride 5 MG Oral Tablet Levocetirizine Dihydrochloride 5 MG Levocetirizine Dihydrochloride 5 MG 03/07/2020 12:00:00 AM EDT 1.0 {tablet_in_the_evening} active Levoceti rizine Dihydrochloride 5 MG eCW1 ([facility]) levocetirizine dihydrochloride 5 MG Oral Tablet Levocetirizine Dihydrochloride 5 MG Levocetirizine Dihydrochloride 5 MG 03/07/2020 12:00:00 AM EDT 1.0 {tablet_in_the_evening} active Levoceti rizine Dihydrochloride 5 MG eCW1 ([facility]) levocetirizine dihydrochloride 5 MG Oral Tablet Levocetirizine Dihydrochloride 5 MG Levocetirizine Dihydrochloride 5 MG 03/07/2020 12:00:00 AM EDT 1.0 {tablet_in_the_evening} active Levoceti rizine Dihydrochloride 5 MG eCW1 ([facility]) levocetirizine dihydrochloride 5 MG Oral Tablet Levocetirizine Dihydrochloride 5 MG Levocetirizine Dihydrochloride 5 MG 03/07/2020 12:00:00 AM EDT 1.0 {tablet_in_the_evening} active Levoceti rizine Dihydrochloride 5 MG eCW1 ([facility]) levocetirizine dihydrochloride 5 MG Oral Tablet Levocetirizine Dihydrochloride 5 MG Levocetirizine Dihydrochloride 5 MG 03/07/2020 12:00:00 AM EDT 1.0 {tablet_in_the_evening} active Levoceti rizine Dihydrochloride 5 MG eCW1 ([facility]) levocetirizine dihydrochloride 5 MG Oral Tablet Levocetirizine Dihydrochloride 5 MG Levocetirizine Dihydrochloride 5 MG 03/07/2020 12:00:00 AM EDT 1.0 {tablet_in_the_evening} active Levoceti rizine Dihydrochloride 5 MG eCW1 ([facility]) levocetirizine dihydrochloride 5 MG Oral Tablet Levocetirizine Dihydrochloride 5 MG Levocetirizine Dihydrochloride 5 MG 03/07/2020 12:00:00 AM EDT 1.0 {tablet_in_the_evening} active Levoceti rizine Dihydrochloride 5 MG eCW1 ([facility]) levocetirizine dihydrochloride 5 MG Oral Tablet Levocetirizine Dihydrochloride 5 MG Levocetirizine Dihydrochloride 5 MG 03/07/2020 12:00:00 AM EDT 1.0 {tablet_in_the_evening} active Levoceti rizine Dihydrochloride 5 MG eCW1 ([facility]) levocetirizine dihydrochloride 5 MG Oral Tablet Levocetirizine Dihydrochloride 5 MG Levocetirizine Dihydrochloride 5 MG 03/07/2020 12:00:00 AM EDT 1.0 {tablet_in_the_evening} active Levoceti rizine Dihydrochloride 5 MG eCW1 ([facility]) levocetirizine dihydrochloride 5 MG Oral Tablet Levocetirizine Dihydrochloride 5 MG Levocetirizine Dihydrochloride 5 MG 03/07/2020 12:00:00 AM EDT 1.0 {tablet_in_the_evening} active Levoceti rizine Dihydrochloride 5 MG eCW1 ([facility]) levocetirizine dihydrochloride 5 MG Oral Tablet Levocetirizine Dihydrochloride 5 MG Levocetirizine Dihydrochloride 5 MG 03/07/2020 12:00:00 AM EDT 1.0 {tablet_in_the_evening} active Levoceti rizine Dihydrochloride 5 MG eCW1 ([facility]) levocetirizine dihydrochloride 5 MG Oral Tablet Levocetirizine Dihydrochloride 5 MG Levocetirizine Dihydrochloride 5 MG 03/07/2020 12:00:00 AM EDT 1.0 {tablet_in_the_evening} active Levoceti rizine Dihydrochloride 5 MG eCW1 ([facility]) levocetirizine dihydrochloride 5 MG Oral Tablet Levocetirizine Dihydrochloride 5 MG Levocetirizine Dihydrochloride 5 MG 03/07/2020 12:00:00 AM EDT 1.0 {tablet_in_the_evening} active Levoceti rizine Dihydrochloride 5 MG eCW1 ([facility]) levocetirizine dihydrochloride 5 MG Oral Tablet Levocetirizine Dihydrochloride 5 MG Levocetirizine Dihydrochloride 5 MG 03/07/2020 12:00:00 AM EDT 1.0 {tablet_in_the_evening} active Levoceti rizine Dihydrochloride 5 MG eCW1 ([facility]) levocetirizine dihydrochloride 5 MG Oral Tablet Levocetirizine Dihydrochloride 5 MG Levocetirizine Dihydrochloride 5 MG 03/07/2020 12:00:00 AM EDT 1.0 {tablet_in_the_evening} active Levoceti rizine Dihydrochloride 5 MG eCW1 ([facility]) levocetirizine dihydrochloride 5 MG Oral Tablet Levocetirizine Dihydrochloride 5 MG Levocetirizine Dihydrochloride 5 MG 03/07/2020 12:00:00 AM EDT 1.0 {tablet_in_the_evening} active Levoceti rizine Dihydrochloride 5 MG eCW1 ([facility]) levocetirizine dihydrochloride 5 MG Oral Tablet Levocetirizine Dihydrochloride 5 MG Levocetirizine Dihydrochloride 5 MG 03/07/2020 12:00:00 AM EDT 1.0 {tablet_in_the_evening} active Levoceti rizine Dihydrochloride 5 MG eCW1 ([facility]) levocetirizine dihydrochloride 5 MG Oral Tablet Levocetirizine Dihydrochloride 5 MG Levocetirizine Dihydrochloride 5 MG 03/07/2020 12:00:00 AM EDT 1.0 {tablet_in_the_evening} active Levoceti rizine Dihydrochloride 5 MG eCW1 ([facility]) levocetirizine dihydrochloride 5 MG Oral Tablet Levocetirizine Dihydrochloride 5 MG Levocetirizine Dihydrochloride 5 MG 03/07/2020 12:00:00 AM EDT 1.0 {tablet_in_the_evening} active Levoceti rizine Dihydrochloride 5 MG eCW1 ([facility]) levocetirizine dihydrochloride 5 MG Oral Tablet Levocetirizine Dihydrochloride 5 MG Levocetirizine Dihydrochloride 5 MG 03/07/2020 12:00:00 AM EDT 1.0 {tablet_in_the_evening} active Levoceti rizine Dihydrochloride 5 MG eCW1 ([facility]) levocetirizine dihydrochloride 5 MG Oral Tablet Levocetirizine Dihydrochloride 5 MG Levocetirizine Dihydrochloride 5 MG 03/07/2020 12:00:00 AM EDT 1.0 {tablet_in_the_evening} active Levoceti rizine Dihydrochloride 5 MG eCW1 ([facility]) levocetirizine dihydrochloride 5 MG Oral Tablet Levocetirizine Dihydrochloride 5 MG Levocetirizine Dihydrochloride 5 MG 03/07/2020 12:00:00 AM EDT 1.0 {tablet_in_the_evening} active Levoceti rizine Dihydrochloride 5 MG eCW1 ([facility]) Ibuprofen 800 MG Oral Tablet Ibuprofen 800 MG 03/03/2020 12:00:00 AM E DT suspended Ibuprofen 800 MG eCW1 ([facility]) Ibuprofen 800 MG Oral Tablet Ibuprofen 800 MG 03/03/2020 12:00:00 AM E DT active Ibuprofen 800 MG eCW1 ([facility]) Triamcinolone Acetonide 55 MCG/ACT Triamcinolone Acetonide 5 5 MCG/ACT 03/03/2020 12:00:00 AM EDT 1.0 {spray_in_each_nostril} act [place] Triamcinolone Acetonide 55 MCG/ACT eCW1 ([facility]) Triamcinolone Acetonide 55 MCG/ACT Triamcinolone Acetonide 5 5 MCG/ACT 03/03/2020 12:00:00 AM EDT 1.0 {spray_in_each_nostril} leon pended Triamcinolone Acetonide 55 MCG/ACT eCW1 ([facility]) Fexofenadine hydrochloride 180 MG Oral Tablet Fexofena dine HCl 180 MG Fexofenadine HCl 180 MG 03/03/2020 12:00:00 AM EDT 1.0 {tablet_as_nee ded} suspended Fexofenadine HCl 180 MG eCW1 ([facility]) Fexofenadine hydrochloride 180 MG Oral Tablet Fexofena dine HCl 180 MG Fexofenadine HCl 180 MG 03/03/2020 12:00:00 AM EDT 1.0 {tablet_as_nee ded} suspended Fexofenadine HCl 180 MG eCW1 ([facility]) Fexofenadine hydrochloride 180 MG Oral Tablet Fexofena dine HCl 180 MG Fexofenadine HCl 180 MG 03/03/2020 12:00:00 AM EDT 1.0 {tablet_as_nee ded} suspended Fexofenadine HCl 180 MG eCW1 ([facility]) Ibuprofen 800 MG Oral Tablet Ibuprofen 800 MG 03/03/2020 12:00:00 AM E DT suspended Ibuprofen 800 MG eCW1 ([facility]) Ibuprofen 800 MG Oral Tablet Ibuprofen 800 MG 03/03/2020 12:00:00 AM E DT active Ibuprofen 800 MG eCW1 ([facility]) Triamcinolone Acetonide 55 MCG/ACT Triamcinolone Acetonide 5 5 MCG/ACT 03/03/2020 12:00:00 AM EDT 1.0 {spray_in_each_nostril} leon pended Triamcinolone Acetonide 55 MCG/ACT eCW1 ([facility]) Fexofenadine hydrochloride 180 MG Oral Tablet Fexofena dine HCl 180 MG Fexofenadine HCl 180 MG 03/03/2020 12:00:00 AM EDT active 1 tablet as needed eCW1 ([facility]) Fexofenadine hydrochloride 180 MG Oral Tablet Fexofena dine HCl 180 MG Fexofenadine HCl 180 MG 03/03/2020 12:00:00 AM EDT 1.0 {tablet_as_nee ded} suspended Fexofenadine HCl 180 MG eCW1 ([facility]) Ibuprofen 800 MG Oral Tablet Ibuprofen 800 MG 03/03/2020 12:00:00 AM E DT suspended Ibuprofen 800 MG eCW1 ([facility]) Fexofenadine hydrochloride 180 MG Oral Tablet Fexofena dine HCl 180 MG Fexofenadine HCl 180 MG 03/03/2020 12:00:00 AM EDT 1.0 {tablet_as_nee ded} suspended Fexofenadine HCl 180 MG eCW1 ([facility]) Ibuprofen 800 MG Oral Tablet Ibuprofen 800 MG 03/03/2020 12:00:00 AM E DT suspended Ibuprofen 800 MG eCW1 ([facility]) Fexofenadine hydrochloride 180 MG Oral Tablet Fexofena dine HCl 180 MG Fexofenadine HCl 180 MG 03/03/2020 12:00:00 AM EDT 1.0 {tablet_as_nee ded} suspended Fexofenadine HCl 180 MG eCW1 ([facility]) Ibuprofen 800 MG Oral Tablet Ibuprofen 800 MG 03/03/2020 12:00:00 AM E DT suspended Ibuprofen 800 MG eCW1 ([facility]) Ibuprofen 800 MG Oral Tablet Ibuprofen 800 MG 03/03/2020 12:00:00 AM E DT suspended Ibuprofen 800 MG eCW1 ([facility]) Fexofenadine hydrochloride 180 MG Oral Tablet Fexofena dine HCl 180 MG Fexofenadine HCl 180 MG 03/03/2020 12:00:00 AM EDT 1.0 {tablet_as_nee ded} active Fexofenadine HCl 180 MG eCW1 ([facility]) Triamcinolone Acetonide 55 MCG/ACT Triamcinolone Acetonide 5 5 MCG/ACT 03/03/2020 12:00:00 AM EDT 1.0 {spray_in_each_nostril} leon pended Triamcinolone Acetonide 55 MCG/ACT eCW1 ([facility]) Fexofenadine hydrochloride 180 MG Oral Tablet Fexofena dine HCl 180 MG Fexofenadine HCl 180 MG 03/03/2020 12:00:00 AM EDT 1.0 {tablet_as_nee ded} suspended Fexofenadine HCl 180 MG eCW1 ([facility]) Triamcinolone Acetonide 55 MCG/ACT Triamcinolone Acetonide 5 5 MCG/ACT 03/03/2020 12:00:00 AM EDT 1.0 {spray_in_each_nostril} leon pended Triamcinolone Acetonide 55 MCG/ACT eCW1 ([facility]) Ibuprofen 800 MG Oral Tablet Ibuprofen 800 MG 03/03/2020 12:00:00 AM E DT active Ibuprofen 800 MG eCW1 ([facility]) Ibuprofen 800 MG Oral Tablet Ibuprofen 800 MG 03/03/2020 12:00:00 AM E DT suspended Ibuprofen 800 MG eCW1 ([facility]) Fexofenadine hydrochloride 180 MG Oral Tablet Fexofena dine HCl 180 MG Fexofenadine HCl 180 MG 03/03/2020 12:00:00 AM EDT 1.0 {tablet_as_nee ded} suspended Fexofenadine HCl 180 MG eCW1 ([facility]) Fexofenadine hydrochloride 180 MG Oral Tablet Fexofena dine HCl 180 MG Fexofenadine HCl 180 MG 03/03/2020 12:00:00 AM EDT 1.0 {tablet_as_nee ded} suspended Fexofenadine HCl 180 MG eCW1 ([facility]) Triamcinolone Acetonide 55 MCG/ACT Triamcinolone Acetonide 5 5 MCG/ACT 03/03/2020 12:00:00 AM EDT 1.0 {spray_in_each_nostril} leon pended Triamcinolone Acetonide 55 MCG/ACT eCW1 ([facility]) Triamcinolone Acetonide 55 MCG/ACT Triamcinolone Acetonide 5 5 MCG/ACT 03/03/2020 12:00:00 AM EDT 1.0 {spray_in_each_nostril} leon pended Triamcinolone Acetonide 55 MCG/ACT eCW1 ([facility]) Fexofenadine hydrochloride 180 MG Oral Tablet Fexofena dine HCl 180 MG Fexofenadine HCl 180 MG 03/03/2020 12:00:00 AM EDT 1.0 {tablet_as_nee ded} suspended Fexofenadine HCl 180 MG eCW1 ([facility]) Triamcinolone Acetonide 55 MCG/ACT Triamcinolone Acetonide 5 5 MCG/ACT 03/03/2020 12:00:00 AM EDT 1.0 {spray_in_each_nostril} leon pended Triamcinolone Acetonide 55 MCG/ACT eCW1 ([facility]) Triamcinolone Acetonide 55 MCG/ACT Triamcinolone Acetonide 5 5 MCG/ACT 03/03/2020 12:00:00 AM EDT 1.0 {spray_in_each_nostril} leon pended Triamcinolone Acetonide 55 MCG/ACT eCW1 ([facility]) Triamcinolone Acetonide 55 MCG/ACT Triamcinolone Acetonide 5 5 MCG/ACT 03/03/2020 12:00:00 AM EDT 1.0 {spray_in_each_nostril} act [place] Triamcinolone Acetonide 55 MCG/ACT eCW1 ([facility]) Fexofenadine hydrochloride 180 MG Oral Tablet Fexofena dine HCl 180 MG Fexofenadine HCl 180 MG 03/03/2020 12:00:00 AM EDT 1.0 {tablet_as_nee ded} active Fexofenadine HCl 180 MG eCW1 ([facility]) Ibuprofen 800 MG Oral Tablet Ibuprofen 800 MG 03/03/2020 12:00:00 AM E DT suspended Ibuprofen 800 MG eCW1 ([facility]) Ibuprofen 800 MG Oral Tablet Ibuprofen 800 MG 03/03/2020 12:00:00 AM E DT suspended Ibuprofen 800 MG eCW1 ([facility]) Ibuprofen 800 MG Oral Tablet Ibuprofen 800 MG 03/03/2020 12:00:00 AM E DT suspended Ibuprofen 800 MG eCW1 ([facility]) Ibuprofen 800 MG Oral Tablet Ibuprofen 800 MG 03/03/2020 12:00:00 AM E DT suspended Ibuprofen 800 MG eCW1 ([facility]) Fexofenadine hydrochloride 180 MG Oral Tablet Fexofena dine HCl 180 MG Fexofenadine HCl 180 MG 03/03/2020 12:00:00 AM EDT 1.0 {tablet_as_nee ded} active Fexofenadine HCl 180 MG eCW1 ([facility]) Triamcinolone Acetonide 55 MCG/ACT Triamcinolone Acetonide 5 5 MCG/ACT 03/03/2020 12:00:00 AM EDT 1.0 {spray_in_each_nostril} leon pended Triamcinolone Acetonide 55 MCG/ACT eCW1 ([facility]) Ibuprofen 800 MG Oral Tablet Ibuprofen 800 MG 03/03/2020 12:00:00 AM E DT active Ibuprofen 800 MG eCW1 ([facility]) Triamcinolone Acetonide 55 MCG/ACT Triamcinolone Acetonide 5 5 MCG/ACT 03/03/2020 12:00:00 AM EDT 1.0 {spray_in_each_nostril} leon pended Triamcinolone Acetonide 55 MCG/ACT eCW1 ([facility]) Fexofenadine hydrochloride 180 MG Oral Tablet Fexofena dine HCl 180 MG Fexofenadine HCl 180 MG 03/03/2020 12:00:00 AM EDT 1.0 {tablet_as_nee ded} suspended Fexofenadine HCl 180 MG eCW1 ([facility]) Fexofenadine hydrochloride 180 MG Oral Tablet Fexofena dine HCl 180 MG Fexofenadine HCl 180 MG 03/03/2020 12:00:00 AM EDT 1.0 {tablet_as_nee ded} active Fexofenadine HCl 180 MG eCW1 ([facility]) Fexofenadine hydrochloride 180 MG Oral Tablet Fexofena dine HCl 180 MG Fexofenadine HCl 180 MG 03/03/2020 12:00:00 AM EDT 1.0 {tablet_as_nee ded} suspended Fexofenadine HCl 180 MG eCW1 ([facility]) Fexofenadine hydrochloride 180 MG Oral Tablet Fexofena dine HCl 180 MG Fexofenadine HCl 180 MG 03/03/2020 12:00:00 AM EDT 1.0 {tablet_as_nee ded} active Fexofenadine HCl 180 MG eCW1 ([facility]) Triamcinolone Acetonide 55 MCG/ACT Triamcinolone Acetonide 5 5 MCG/ACT 03/03/2020 12:00:00 AM EDT 1.0 {spray_in_each_nostril} leon pended Triamcinolone Acetonide 55 MCG/ACT eCW1 ([facility]) Fexofenadine hydrochloride 180 MG Oral Tablet Fexofena dine HCl 180 MG Fexofenadine HCl 180 MG 03/03/2020 12:00:00 AM EDT 1.0 {tablet_as_nee ded} suspended Fexofenadine HCl 180 MG eCW1 ([facility]) Fexofenadine hydrochloride 180 MG Oral Tablet Fexofena dine HCl 180 MG Fexofenadine HCl 180 MG 03/03/2020 12:00:00 AM EDT 1.0 {tablet_as_nee ded} suspended Fexofenadine HCl 180 MG eCW1 ([facility]) Triamcinolone Acetonide 55 MCG/ACT Triamcinolone Acetonide 5 5 MCG/ACT 03/03/2020 12:00:00 AM EDT 1.0 {spray_in_each_nostril} leon pended Triamcinolone Acetonide 55 MCG/ACT eCW1 ([facility]) Fexofenadine hydrochloride 180 MG Oral Tablet Fexofena dine HCl 180 MG Fexofenadine HCl 180 MG 03/03/2020 12:00:00 AM EDT 1.0 {tablet_as_nee ded} active Fexofenadine HCl 180 MG eCW1 ([facility]) Triamcinolone Acetonide 55 MCG/ACT Triamcinolone Acetonide 5 5 MCG/ACT 03/03/2020 12:00:00 AM EDT 1.0 {spray_in_each_nostril} leon pended Triamcinolone Acetonide 55 MCG/ACT eCW1 ([facility]) Triamcinolone Acetonide 55 MCG/ACT Triamcinolone Acetonide 5 5 MCG/ACT 03/03/2020 12:00:00 AM EDT 1.0 {spray_in_each_nostril} leon pended Triamcinolone Acetonide 55 MCG/ACT eCW1 ([facility]) Triamcinolone Acetonide 55 MCG/ACT Triamcinolone Acetonide 5 5 MCG/ACT 03/03/2020 12:00:00 AM EDT 1.0 {spray_in_each_nostril} act [place] Triamcinolone Acetonide 55 MCG/ACT eCW1 ([facility]) Triamcinolone Acetonide 55 MCG/ACT Triamcinolone Acetonide 5 5 MCG/ACT 03/03/2020 12:00:00 AM EDT 1.0 {spray_in_each_nostril} leon pended Triamcinolone Acetonide 55 MCG/ACT eCW1 ([facility]) Triamcinolone Acetonide 55 MCG/ACT Triamcinolone Acetonide 5 5 MCG/ACT 03/03/2020 12:00:00 AM EDT 1.0 {spray_in_each_nostril} leon pended Triamcinolone Acetonide 55 MCG/ACT eCW1 ([facility]) Triamcinolone Acetonide 55 MCG/ACT Triamcinolone Acetonide 5 5 MCG/ACT 03/03/2020 12:00:00 AM EDT 1.0 {spray_in_each_nostril} leon pended Triamcinolone Acetonide 55 MCG/ACT eCW1 ([facility]) Fexofenadine hydrochloride 180 MG Oral Tablet Fexofena dine HCl 180 MG Fexofenadine HCl 180 MG 03/03/2020 12:00:00 AM EDT 1.0 {tablet_as_nee ded} suspended Fexofenadine HCl 180 MG eCW1 ([facility]) Fexofenadine hydrochloride 180 MG Oral Tablet Fexofena dine HCl 180 MG Fexofenadine HCl 180 MG 03/03/2020 12:00:00 AM EDT 1.0 {tablet_as_nee ded} suspended Fexofenadine HCl 180 MG eCW1 ([facility]) Triamcinolone Acetonide 55 MCG/ACT Triamcinolone Acetonide 5 5 MCG/ACT 03/03/2020 12:00:00 AM EDT 1.0 {spray_in_each_nostril} leon pended Triamcinolone Acetonide 55 MCG/ACT eCW1 ([facility]) Ibuprofen 800 MG Oral Tablet Ibuprofen 800 MG 03/03/2020 12:00:00 AM E DT suspended Ibuprofen 800 MG eCW1 ([facility]) Triamcinolone Acetonide 55 MCG/ACT Triamcinolone Acetonide 5 5 MCG/ACT 03/03/2020 12:00:00 AM EDT 1.0 {spray_in_each_nostril} leon pended Triamcinolone Acetonide 55 MCG/ACT eCW1 ([facility]) Ibuprofen 800 MG Oral Tablet Ibuprofen 800 MG 03/03/2020 12:00:00 AM E DT suspended Ibuprofen 800 MG eCW1 ([facility]) Triamcinolone Acetonide 55 MCG/ACT Triamcinolone Acetonide 5 5 MCG/ACT 03/03/2020 12:00:00 AM EDT active 1 spray in each nostril eCW1 ([facility]) Triamcinolone Acetonide 55 MCG/ACT Triamcinolone Acetonide 5 5 MCG/ACT 03/03/2020 12:00:00 AM EDT 1.0 {spray_in_each_nostril} act [place] Triamcinolone Acetonide 55 MCG/ACT eCW1 ([facility]) Fexofenadine hydrochloride 180 MG Oral Tablet Fexofena dine HCl 180 MG Fexofenadine HCl 180 MG 03/03/2020 12:00:00 AM EDT 1.0 {tablet_as_nee ded} active Fexofenadine HCl 180 MG eCW1 ([facility]) Fexofenadine hydrochloride 180 MG Oral Tablet Fexofena dine HCl 180 MG Fexofenadine HCl 180 MG 03/03/2020 12:00:00 AM EDT 1.0 {tablet_as_nee ded} suspended Fexofenadine HCl 180 MG eCW1 ([facility]) Ibuprofen 800 MG Oral Tablet Ibuprofen 800 MG 03/03/2020 12:00:00 AM E DT active Ibuprofen 800 MG eCW1 ([facility]) Fexofenadine hydrochloride 180 MG Oral Tablet Fexofena dine HCl 180 MG Fexofenadine HCl 180 MG 03/03/2020 12:00:00 AM EDT 1.0 {tablet_as_nee ded} active Fexofenadine HCl 180 MG eCW1 ([facility]) Fexofenadine hydrochloride 180 MG Oral Tablet Fexofena dine HCl 180 MG Fexofenadine HCl 180 MG 03/03/2020 12:00:00 AM EDT 1.0 {tablet_as_nee ded} suspended Fexofenadine HCl 180 MG eCW1 ([facility]) Ibuprofen 800 MG Oral Tablet Ibuprofen 800 MG 03/03/2020 12:00:00 AM E DT active 1 tablet with food or mil k as needed eCW1 ([facility]) Ibuprofen 800 MG Oral Tablet Ibuprofen 800 MG 03/03/2020 12:00:00 AM E DT active Ibuprofen 800 MG eCW1 ([facility]) Fexofenadine hydrochloride 180 MG Oral Tablet Fexofena dine HCl 180 MG Fexofenadine HCl 180 MG 03/03/2020 12:00:00 AM EDT 1.0 {tablet_as_nee ded} suspended Fexofenadine HCl 180 MG eCW1 ([facility]) Triamcinolone Acetonide 55 MCG/ACT Triamcinolone Acetonide 5 5 MCG/ACT 03/03/2020 12:00:00 AM EDT 1.0 {spray_in_each_nostril} leon pended Triamcinolone Acetonide 55 MCG/ACT eCW1 ([facility]) Ibuprofen 800 MG Oral Tablet Ibuprofen 800 MG 03/03/2020 12:00:00 AM E DT suspended Ibuprofen 800 MG eCW1 ([facility]) Ibuprofen 800 MG Oral Tablet Ibuprofen 800 MG 03/03/2020 12:00:00 AM E DT suspended Ibuprofen 800 MG eCW1 ([facility]) Fexofenadine hydrochloride 180 MG Oral Tablet Fexofena dine HCl 180 MG Fexofenadine HCl 180 MG 03/03/2020 12:00:00 AM EDT 1.0 {tablet_as_nee ded} suspended Fexofenadine HCl 180 MG eCW1 ([facility]) Ibuprofen 800 MG Oral Tablet Ibuprofen 800 MG 03/03/2020 12:00:00 AM E DT suspended Ibuprofen 800 MG eCW1 ([facility]) Triamcinolone Acetonide 55 MCG/ACT Triamcinolone Acetonide 5 5 MCG/ACT 03/03/2020 12:00:00 AM EDT 1.0 {spray_in_each_nostril} act [place] Triamcinolone Acetonide 55 MCG/ACT eCW1 ([facility]) Triamcinolone Acetonide 55 MCG/ACT Triamcinolone Acetonide 5 5 MCG/ACT 03/03/2020 12:00:00 AM EDT 1.0 {spray_in_each_nostril} act [place] Triamcinolone Acetonide 55 MCG/ACT eCW1 ([facility]) Fexofenadine hydrochloride 180 MG Oral Tablet Fexofena dine HCl 180 MG Fexofenadine HCl 180 MG 03/03/2020 12:00:00 AM EDT 1.0 {tablet_as_nee ded} suspended Fexofenadine HCl 180 MG eCW1 ([facility]) Triamcinolone Acetonide 55 MCG/ACT Triamcinolone Acetonide 5 5 MCG/ACT 03/03/2020 12:00:00 AM EDT 1.0 {spray_in_each_nostril} leon pended Triamcinolone Acetonide 55 MCG/ACT eCW1 ([facility]) Fexofenadine hydrochloride 180 MG Oral Tablet Fexofena dine HCl 180 MG Fexofenadine HCl 180 MG 03/03/2020 12:00:00 AM EDT 1.0 {tablet_as_nee ded} suspended Fexofenadine HCl 180 MG eCW1 ([facility]) Fexofenadine hydrochloride 180 MG Oral Tablet Fexofena dine HCl 180 MG Fexofenadine HCl 180 MG 03/03/2020 12:00:00 AM EDT 1.0 {tablet_as_nee ded} suspended Fexofenadine HCl 180 MG eCW1 ([facility]) Triamcinolone Acetonide 55 MCG/ACT Triamcinolone Acetonide 5 5 MCG/ACT 03/03/2020 12:00:00 AM EDT 1.0 {spray_in_each_nostril} leon pended Triamcinolone Acetonide 55 MCG/ACT eCW1 ([facility]) Triamcinolone Acetonide 55 MCG/ACT Triamcinolone Acetonide 5 5 MCG/ACT 03/03/2020 12:00:00 AM EDT 1.0 {spray_in_each_nostril} act [place] Triamcinolone Acetonide 55 MCG/ACT eCW1 ([facility]) Triamcinolone Acetonide 55 MCG/ACT Triamcinolone Acetonide 5 5 MCG/ACT 03/03/2020 12:00:00 AM EDT 1.0 {spray_in_each_nostril} leon pended Triamcinolone Acetonide 55 MCG/ACT eCW1 ([facility]) Ibuprofen 800 MG Oral Tablet Ibuprofen 800 MG 03/03/2020 12:00:00 AM E DT suspended Ibuprofen 800 MG eCW1 ([facility]) Ibuprofen 800 MG Oral Tablet Ibuprofen 800 MG 03/03/2020 12:00:00 AM E DT suspended Ibuprofen 800 MG eCW1 ([facility]) Fexofenadine hydrochloride 180 MG Oral Tablet Fexofena dine HCl 180 MG Fexofenadine HCl 180 MG 03/03/2020 12:00:00 AM EDT 1.0 {tablet_as_nee ded} suspended Fexofenadine HCl 180 MG eCW1 ([facility]) Triamcinolone Acetonide 55 MCG/ACT Triamcinolone Acetonide 5 5 MCG/ACT 03/03/2020 12:00:00 AM EDT 1.0 {spray_in_each_nostril} leon pended Triamcinolone Acetonide 55 MCG/ACT eCW1 ([facility]) Ibuprofen 800 MG Oral Tablet Ibuprofen 800 MG 03/03/2020 12:00:00 AM E DT suspended Ibuprofen 800 MG eCW1 ([facility]) Ibuprofen 800 MG Oral Tablet Ibuprofen 800 MG 03/03/2020 12:00:00 AM E DT suspended Ibuprofen 800 MG eCW1 ([facility]) Ibuprofen 800 MG Oral Tablet Ibuprofen 800 MG 03/03/2020 12:00:00 AM E DT suspended Ibuprofen 800 MG eCW1 ([facility]) Ibuprofen 800 MG Oral Tablet Ibuprofen 800 MG 03/03/2020 12:00:00 AM E DT active Ibuprofen 800 MG eCW1 ([facility]) Ibuprofen 800 MG Oral Tablet Ibuprofen 800 MG 03/03/2020 12:00:00 AM E DT suspended Ibuprofen 800 MG eCW1 ([facility]) Triamcinolone Acetonide 55 MCG/ACT Triamcinolone Acetonide 5 5 MCG/ACT 03/03/2020 12:00:00 AM EDT 1.0 {spray_in_each_nostril} leon pended Triamcinolone Acetonide 55 MCG/ACT eCW1 ([facility]) Ibuprofen 800 MG Oral Tablet Ibuprofen 800 MG 03/03/2020 12:00:00 AM E DT active Ibuprofen 800 MG eCW1 ([facility]) Fexofenadine hydrochloride 180 MG Oral Tablet Fexofena dine HCl 180 MG Fexofenadine HCl 180 MG 03/03/2020 12:00:00 AM EDT 1.0 {tablet_as_nee ded} active Fexofenadine HCl 180 MG eCW1 ([facility]) Fexofenadine hydrochloride 180 MG Oral Tablet Fexofena dine HCl 180 MG Fexofenadine HCl 180 MG 03/03/2020 12:00:00 AM EDT 1.0 {tablet_as_nee ded} suspended Fexofenadine HCl 180 MG eCW1 ([facility]) Ibuprofen 800 MG Oral Tablet Ibuprofen 800 MG 03/03/2020 12:00:00 AM E DT suspended Ibuprofen 800 MG eCW1 ([facility]) Triamcinolone Acetonide 55 MCG/ACT Triamcinolone Acetonide 5 5 MCG/ACT 03/03/2020 12:00:00 AM EDT 1.0 {spray_in_each_nostril} act [place] Triamcinolone Acetonide 55 MCG/ACT eCW1 ([facility]) Triamcinolone Acetonide 55 MCG/ACT Triamcinolone Acetonide 5 5 MCG/ACT 03/03/2020 12:00:00 AM EDT 1.0 {spray_in_each_nostril} act [place] Triamcinolone Acetonide 55 MCG/ACT eCW1 ([facility]) Fexofenadine hydrochloride 180 MG Oral Tablet Fexofena dine HCl 180 MG Fexofenadine HCl 180 MG 03/03/2020 12:00:00 AM EDT 1.0 {tablet_as_nee ded} suspended Fexofenadine HCl 180 MG eCW1 ([facility]) Triamcinolone Acetonide 55 MCG/ACT Triamcinolone Acetonide 5 5 MCG/ACT 03/03/2020 12:00:00 AM EDT 1.0 {spray_in_each_nostril} leon pended Triamcinolone Acetonide 55 MCG/ACT eCW1 ([facility]) Ibuprofen 800 MG Oral Tablet Ibuprofen 800 MG 03/03/2020 12:00:00 AM E DT active Ibuprofen 800 MG eCW1 ([facility]) Triamcinolone Acetonide 55 MCG/ACT Triamcinolone Acetonide 5 5 MCG/ACT 03/03/2020 12:00:00 AM EDT 1.0 {spray_in_each_nostril} leon pended Triamcinolone Acetonide 55 MCG/ACT eCW1 ([facility]) Ibuprofen 800 MG Oral Tablet Ibuprofen 800 MG 03/03/2020 12:00:00 AM E DT suspended Ibuprofen 800 MG eCW1 ([facility]) Ibuprofen 800 MG Oral Tablet Ibuprofen 800 MG 03/03/2020 12:00:00 AM E DT suspended Ibuprofen 800 MG eCW1 ([facility]) Ibuprofen 800 MG Oral Tablet Ibuprofen 800 MG 03/03/2020 12:00:00 AM E DT suspended Ibuprofen 800 MG eCW1 ([facility]) Ibuprofen 800 MG Oral Tablet Ibuprofen 800 MG 03/03/2020 12:00:00 AM E DT suspended Ibuprofen 800 MG eCW1 ([facility]) Fexofenadine hydrochloride 180 MG Oral Tablet Fexofena dine HCl 180 MG Fexofenadine HCl 180 MG 03/03/2020 12:00:00 AM EDT 1.0 {tablet_as_nee ded} suspended Fexofenadine HCl 180 MG eCW1 ([facility]) Methotrexate 2.5 MG Oral Tablet Methotrexate 2.5 MG Oral Tab let 02/25/2020 12:00:00 AM EDT 20 mg Oral aborted Seropositive rhe umatoid arthritis Take 8 tablets by mouth every 7 (seven) days [facility] Seropositive rheumatoid arthritis Folic Acid 1 MG Oral Tablet Folic Acid 1 MG Oral Table t (FOLVITE) Folic Acid 1 MG Oral Tablet (FOLVITE) 02/25/2020 12:00:00 AM EDT 1 mg Oral active Encounter for methotrexate monitoring Take 1 tablet by mouth daily [facility] Encounter for methotrexate monitoring Cheratussin AC 100-10 MG/5ML UNK 02/02/2020 12:00:00 AM EDT active 5 ml eCW1 ([facility]) Cheratussin AC 100-10 MG/5ML UNK 02/02/2020 12:00:00 AM EDT active 5 ml eCW1 ([facility]) NasoNeb Nebulizer Replacement - NasoNeb Nebulizer Replacemen t - 01/27/2020 12:00:00 AM EDT active NasoNeb Nebulizer Replacement - eCW1 ([facility]) NasoNeb Nebulizer Replacement - NasoNeb Nebulizer Replacemen t - 01/27/2020 12:00:00 AM EDT active NasoNeb Nebulizer Replacement - eCW1 ([facility]) NasoNeb Nebulizer Replacement - NasoNeb Nebulizer Replacemen t - 01/27/2020 12:00:00 AM EDT active NasoNeb Nebulizer Replacement - eCW1 ([facility]) Flonase Sensimist 27.5 MCG/SPRAY Flonase Sensimist 27.5 MCG/ SPRAY 01/27/2020 12:00:00 AM EDT 1.0 {spray_in_each_nostril} susp ended Flonase Sensimist 27.5 MCG/SPRAY eCW1 ([facility]) Alcohol Swabs - Alcohol Swabs - 01/27/2020 12:00:00 AM EDT active Alcohol Swabs - eCW1 ([facility]) Alcohol Swabs - Alcohol Swabs - 01/27/2020 12:00:00 AM EDT active Alcohol Swabs - eCW1 ([facility]) Alcohol Swabs - Alcohol Swabs - 01/27/2020 12:00:00 AM EDT active Alcohol Swabs - eCW1 ([facility]) Flonase Sensimist 27.5 MCG/SPRAY Flonase Sensimist 27.5 MCG/ SPRAY 01/27/2020 12:00:00 AM EDT active 1 spray in each nostril eCW1 ([facility]) NasoNeb Nebulizer Replacement - NasoNeb Nebulizer Replacemen t - 01/27/2020 12:00:00 AM EDT active NasoNeb Nebulizer Replacement - eCW1 ([facility]) Nebulizer Air Tube/Plugs - Nebulizer Air Tube/Plugs - 2019 12:00:00 AM EDT active Nebulizer Air Tub e/Plugs - eCW1 ([facility]) NasoNeb Nebulizer Replacement - NasoNeb Nebulizer Replacemen t - 01/27/2020 12:00:00 AM EDT active as direc imelda eCW1 ([facility]) Alcohol Swabs - Alcohol Swabs - 01/27/2020 12:00:00 AM EDT active Alcohol Swabs - eCW1 ([facility]) Alcohol Swabs - Alcohol Swabs - 01/27/2020 12:00:00 AM EDT active Alcohol Swabs - eCW1 ([facility]) Nebulizer Air Tube/Plugs - Nebulizer Air Tube/Plugs - 2019 12:00:00 AM EDT active Nebulizer Air Tub e/Plugs - eCW1 ([facility]) NasoNeb Nebulizer Replacement - NasoNeb Nebulizer Replacemen t - 01/27/2020 12:00:00 AM EDT active NasoNeb Nebulizer Replacement - eCW1 ([facility]) Flonase Sensimist 27.5 MCG/SPRAY Flonase Sensimist 27.5 MCG/ SPRAY 01/27/2020 12:00:00 AM EDT 1.0 {spray_in_each_nostril} susp ended Flonase Sensimist 27.5 MCG/SPRAY eCW1 ([facility]) NasoNeb Nebulizer Replacement - NasoNeb Nebulizer Replacemen t - 01/27/2020 12:00:00 AM EDT active NasoNeb Nebulizer Replacement - eCW1 ([facility]) Nebulizer Air Tube/Plugs - Nebulizer Air Tube/Plugs - 2019 12:00:00 AM EDT active Nebulizer Air Tub e/Plugs - eCW1 ([facility]) NasoNeb Nebulizer Replacement - NasoNeb Nebulizer Replacemen t - 01/27/2020 12:00:00 AM EDT active NasoNeb Nebulizer Replacement - eCW1 ([facility]) Flonase Sensimist 27.5 MCG/SPRAY Flonase Sensimist 27.5 MCG/ SPRAY 01/27/2020 12:00:00 AM EDT 1.0 {spray_in_each_nostril} susp ended Flonase Sensimist 27.5 MCG/SPRAY eCW1 ([facility]) Alcohol Swabs - Alcohol Swabs - 01/27/2020 12:00:00 AM EDT active Alcohol Swabs - eCW1 ([facility]) Flonase Sensimist 27.5 MCG/SPRAY Flonase Sensimist 27.5 MCG/ SPRAY 01/27/2020 12:00:00 AM EDT 1.0 {spray_in_each_nostril} susp ended Flonase Sensimist 27.5 MCG/SPRAY eCW1 ([facility]) NasoNeb Nebulizer Replacement - NasoNeb Nebulizer Replacemen t - 01/27/2020 12:00:00 AM EDT active NasoNeb Nebulizer Replacement - eCW1 ([facility]) Alcohol Swabs - Alcohol Swabs - 01/27/2020 12:00:00 AM EDT active Alcohol Swabs - eCW1 ([facility]) Nebulizer Air Tube/Plugs - Nebulizer Air Tube/Plugs - 2019 12:00:00 AM EDT active Nebulizer Air Tub e/Plugs - eCW1 ([facility]) Nebulizer Air Tube/Plugs - Nebulizer Air Tube/Plugs - 2019 12:00:00 AM EDT active Nebulizer Air Tub e/Plugs - eCW1 ([facility]) NasoNeb Nebulizer Replacement - NasoNeb Nebulizer Replacemen t - 01/27/2020 12:00:00 AM EDT active NasoNeb Nebulizer Replacement - eCW1 ([facility]) Nebulizer Air Tube/Plugs - Nebulizer Air Tube/Plugs - 2019 12:00:00 AM EDT active Nebulizer Air Tub e/Plugs - eCW1 ([facility]) Nebulizer Air Tube/Plugs - Nebulizer Air Tube/Plugs - 2019 12:00:00 AM EDT active Nebulizer Air Tub e/Plugs - eCW1 ([facility]) Nebulizer Air Tube/Plugs - Nebulizer Air Tube/Plugs - 2019 12:00:00 AM EDT active Nebulizer Air Tub e/Plugs - eCW1 ([facility]) Alcohol Swabs - Alcohol Swabs - 01/27/2020 12:00:00 AM EDT active Alcohol Swabs - eCW1 ([facility]) Flonase Sensimist 27.5 MCG/SPRAY Flonase Sensimist 27.5 MCG/ SPRAY 01/27/2020 12:00:00 AM EDT 1.0 {spray_in_each_nostril} susp ended Flonase Sensimist 27.5 MCG/SPRAY eCW1 ([facility]) NasoNeb Nebulizer Replacement - NasoNeb Nebulizer Replacemen t - 01/27/2020 12:00:00 AM EDT active NasoNeb Nebulizer Replacement - eCW1 ([facility]) Nebulizer Air Tube/Plugs - Nebulizer Air Tube/Plugs - 2019 12:00:00 AM EDT active Nebulizer Air Tub e/Plugs - eCW1 ([facility]) Nebulizer Air Tube/Plugs - Nebulizer Air Tube/Plugs - 2019 12:00:00 AM EDT active Nebulizer Air Tub e/Plugs - eCW1 ([facility]) Flonase Sensimist 27.5 MCG/SPRAY Flonase Sensimist 27.5 MCG/ SPRAY 01/27/2020 12:00:00 AM EDT 1.0 {spray_in_each_nostril} susp ended Flonase Sensimist 27.5 MCG/SPRAY eCW1 ([facility]) Alcohol Swabs - Alcohol Swabs - 01/27/2020 12:00:00 AM EDT active Alcohol Swabs - eCW1 ([facility]) Flonase Sensimist 27.5 MCG/SPRAY Flonase Sensimist 27.5 MCG/ SPRAY 01/27/2020 12:00:00 AM EDT 1.0 {spray_in_each_nostril} susp ended Flonase Sensimist 27.5 MCG/SPRAY eCW1 ([facility]) Alcohol Swabs - Alcohol Swabs - 01/27/2020 12:00:00 AM EDT active Alcohol Swabs - eCW1 ([facility]) Flonase Sensimist 27.5 MCG/SPRAY Flonase Sensimist 27.5 MCG/ SPRAY 01/27/2020 12:00:00 AM EDT 1.0 {spray_in_each_nostril} susp ended Flonase Sensimist 27.5 MCG/SPRAY eCW1 ([facility]) Alcohol Swabs - Alcohol Swabs - 01/27/2020 12:00:00 AM EDT active Alcohol Swabs - eCW1 ([facility]) Alcohol Swabs - Alcohol Swabs - 01/27/2020 12:00:00 AM EDT active Alcohol Swabs - eCW1 ([facility]) Nebulizer Air Tube/Plugs - Nebulizer Air Tube/Plugs - 2019 12:00:00 AM EDT active Nebulizer Air Tub e/Plugs - eCW1 ([facility]) NasoNeb Nebulizer Replacement - NasoNeb Nebulizer Replacemen t - 01/27/2020 12:00:00 AM EDT active NasoNeb Nebulizer Replacement - eCW1 ([facility]) Flonase Sensimist 27.5 MCG/SPRAY Flonase Sensimist 27.5 MCG/ SPRAY 01/27/2020 12:00:00 AM EDT 1.0 {spray_in_each_nostril} susp ended Flonase Sensimist 27.5 MCG/SPRAY eCW1 ([facility]) Flonase Sensimist 27.5 MCG/SPRAY Flonase Sensimist 27.5 MCG/ SPRAY 01/27/2020 12:00:00 AM EDT 1.0 {spray_in_each_nostril} susp ended Flonase Sensimist 27.5 MCG/SPRAY eCW1 ([facility]) Flonase Sensimist 27.5 MCG/SPRAY Flonase Sensimist 27.5 MCG/ SPRAY 01/27/2020 12:00:00 AM EDT 1.0 {spray_in_each_nostril} susp ended Flonase Sensimist 27.5 MCG/SPRAY eCW1 ([facility]) NasoNeb Nebulizer Replacement - NasoNeb Nebulizer Replacemen t - 01/27/2020 12:00:00 AM EDT active NasoNeb Nebulizer Replacement - eCW1 ([facility]) Nebulizer Air Tube/Plugs - Nebulizer Air Tube/Plugs - 2019 12:00:00 AM EDT active Nebulizer Air Tub e/Plugs - eCW1 ([facility]) Alcohol Swabs - Alcohol Swabs - 01/27/2020 12:00:00 AM EDT active Alcohol Swabs - eCW1 ([facility]) NasoNeb Nebulizer Replacement - NasoNeb Nebulizer Replacemen t - 01/27/2020 12:00:00 AM EDT active NasoNeb Nebulizer Replacement - eCW1 ([facility]) NasoNeb Nebulizer Replacement - NasoNeb Nebulizer Replacemen t - 01/27/2020 12:00:00 AM EDT active NasoNeb Nebulizer Replacement - eCW1 ([facility]) Flonase Sensimist 27.5 MCG/SPRAY Flonase Sensimist 27.5 MCG/ SPRAY 01/27/2020 12:00:00 AM EDT 1.0 {spray_in_each_nostril} susp ended Flonase Sensimist 27.5 MCG/SPRAY eCW1 ([facility]) Nebulizer Air Tube/Plugs - Nebulizer Air Tube/Plugs - 2019 12:00:00 AM EDT active Nebulizer Air Tub e/Plugs - eCW1 ([facility]) Nebulizer Air Tube/Plugs - Nebulizer Air Tube/Plugs - 2019 12:00:00 AM EDT active as directed eCW1 ([facility]) Flonase Sensimist 27.5 MCG/SPRAY Flonase Sensimist 27.5 MCG/ SPRAY 01/27/2020 12:00:00 AM EDT 1.0 {spray_in_each_nostril} susp ended Flonase Sensimist 27.5 MCG/SPRAY eCW1 ([facility]) Alcohol Swabs - Alcohol Swabs - 01/27/2020 12:00:00 AM EDT active Alcohol Swabs - eCW1 ([facility]) Nebulizer Air Tube/Plugs - Nebulizer Air Tube/Plugs - 2019 12:00:00 AM EDT active Nebulizer Air Tub e/Plugs - eCW1 ([facility]) Nebulizer Air Tube/Plugs - Nebulizer Air Tube/Plugs - 2019 12:00:00 AM EDT active Nebulizer Air Tub e/Plugs - eCW1 ([facility]) Flonase Sensimist 27.5 MCG/SPRAY Flonase Sensimist 27.5 MCG/ SPRAY 01/27/2020 12:00:00 AM EDT 1.0 {spray_in_each_nostril} susp ended Flonase Sensimist 27.5 MCG/SPRAY eCW1 ([facility]) NasoNeb Nebulizer Replacement - NasoNeb Nebulizer Replacemen t - 01/27/2020 12:00:00 AM EDT active NasoNeb Nebulizer Replacement - eCW1 ([facility]) Flonase Sensimist 27.5 MCG/SPRAY Flonase Sensimist 27.5 MCG/ SPRAY 01/27/2020 12:00:00 AM EDT 1.0 {spray_in_each_nostril} susp ended Flonase Sensimist 27.5 MCG/SPRAY eCW1 ([facility]) Nebulizer Air Tube/Plugs - Nebulizer Air Tube/Plugs - 2019 12:00:00 AM EDT active Nebulizer Air Tub e/Plugs - eCW1 ([facility]) NasoNeb Nebulizer Replacement - NasoNeb Nebulizer Replacemen t - 01/27/2020 12:00:00 AM EDT active NasoNeb Nebulizer Replacement - eCW1 ([facility]) Nebulizer Air Tube/Plugs - Nebulizer Air Tube/Plugs - 2019 12:00:00 AM EDT active Nebulizer Air Tub e/Plugs - eCW1 ([facility]) Flonase Sensimist 27.5 MCG/SPRAY Flonase Sensimist 27.5 MCG/ SPRAY 01/27/2020 12:00:00 AM EDT 1.0 {spray_in_each_nostril} susp ended Flonase Sensimist 27.5 MCG/SPRAY eCW1 ([facility]) NasoNeb Nebulizer Replacement - NasoNeb Nebulizer Replacemen t - 01/27/2020 12:00:00 AM EDT active NasoNeb Nebulizer Replacement - eCW1 ([facility]) Alcohol Swabs - Alcohol Swabs - 01/27/2020 12:00:00 AM EDT active Alcohol Swabs - eCW1 ([facility]) Flonase Sensimist 27.5 MCG/SPRAY Flonase Sensimist 27.5 MCG/ SPRAY 01/27/2020 12:00:00 AM EDT 1.0 {spray_in_each_nostril} susp ended Flonase Sensimist 27.5 MCG/SPRAY eCW1 ([facility]) NasoNeb Nebulizer Replacement - NasoNeb Nebulizer Replacemen t - 01/27/2020 12:00:00 AM EDT active NasoNeb Nebulizer Replacement - eCW1 ([facility]) RA Tussin Cough DM Sugar Free 100-10 MG/5ML RA Tussin Cough DM Sugar Free 100-10 MG/5ML 01/27/2020 12:00:00 AM EDT active 10 ml as needed eCW1 ([facility]) Flonase Sensimist 27.5 MCG/SPRAY Flonase Sensimist 27.5 MCG/ SPRAY 01/27/2020 12:00:00 AM EDT 1.0 {spray_in_each_nostril} susp ended Flonase Sensimist 27.5 MCG/SPRAY eCW1 ([facility]) Alcohol Swabs - Alcohol Swabs - 01/27/2020 12:00:00 AM EDT active Alcohol Swabs - eCW1 ([facility]) Flonase Sensimist 27.5 MCG/SPRAY Flonase Sensimist 27.5 MCG/ SPRAY 01/27/2020 12:00:00 AM EDT 1.0 {spray_in_each_nostril} susp ended Flonase Sensimist 27.5 MCG/SPRAY eCW1 ([facility]) NasoNeb Nebulizer Replacement - NasoNeb Nebulizer Replacemen t - 01/27/2020 12:00:00 AM EDT active NasoNeb Nebulizer Replacement - eCW1 ([facility]) Nebulizer Air Tube/Plugs - Nebulizer Air Tube/Plugs - 2019 12:00:00 AM EDT active Nebulizer Air Tub e/Plugs - eCW1 ([facility]) Flonase Sensimist 27.5 MCG/SPRAY Flonase Sensimist 27.5 MCG/ SPRAY 01/27/2020 12:00:00 AM EDT 1.0 {spray_in_each_nostril} susp ended Flonase Sensimist 27.5 MCG/SPRAY eCW1 ([facility]) Alcohol Swabs - Alcohol Swabs - 01/27/2020 12:00:00 AM EDT active Alcohol Swabs - eCW1 ([facility]) NasoNeb Nebulizer Replacement - NasoNeb Nebulizer Replacemen t - 01/27/2020 12:00:00 AM EDT active NasoNeb Nebulizer Replacement - eCW1 ([facility]) Alcohol Swabs - Alcohol Swabs - 01/27/2020 12:00:00 AM EDT active Alcohol Swabs - eCW1 ([facility]) NasoNeb Nebulizer Replacement - NasoNeb Nebulizer Replacemen t - 01/27/2020 12:00:00 AM EDT active NasoNeb Nebulizer Replacement - eCW1 ([facility]) Flonase Sensimist 27.5 MCG/SPRAY Flonase Sensimist 27.5 MCG/ SPRAY 01/27/2020 12:00:00 AM EDT 1.0 {spray_in_each_nostril} susp ended Flonase Sensimist 27.5 MCG/SPRAY eCW1 ([facility]) Alcohol Swabs - Alcohol Swabs - 01/27/2020 12:00:00 AM EDT active Alcohol Swabs - eCW1 ([facility]) Flonase Sensimist 27.5 MCG/SPRAY Flonase Sensimist 27.5 MCG/ SPRAY 01/27/2020 12:00:00 AM EDT 1.0 {spray_in_each_nostril} susp ended Flonase Sensimist 27.5 MCG/SPRAY eCW1 ([facility]) NasoNeb Nebulizer Replacement - NasoNeb Nebulizer Replacemen t - 01/27/2020 12:00:00 AM EDT active NasoNeb Nebulizer Replacement - eCW1 ([facility]) NasoNeb Nebulizer Replacement - NasoNeb Nebulizer Replacemen t - 01/27/2020 12:00:00 AM EDT active NasoNeb Nebulizer Replacement - eCW1 ([facility]) Nebulizer Air Tube/Plugs - Nebulizer Air Tube/Plugs - 2019 12:00:00 AM EDT active Nebulizer Air Tub e/Plugs - eCW1 ([facility]) NasoNeb Nebulizer Replacement - NasoNeb Nebulizer Replacemen t - 01/27/2020 12:00:00 AM EDT active NasoNeb Nebulizer Replacement - eCW1 ([facility]) RA Tussin Cough DM Sugar Free 100-10 MG/5ML RA Tussin Cough DM Sugar Free 100-10 MG/5ML 01/27/2020 12:00:00 AM EDT active 10 ml as needed eCW1 ([facility]) Alcohol Swabs - Alcohol Swabs - 01/27/2020 12:00:00 AM EDT active Alcohol Swabs - eCW1 ([facility]) Flonase Sensimist 27.5 MCG/SPRAY Flonase Sensimist 27.5 MCG/ SPRAY 01/27/2020 12:00:00 AM EDT 1.0 {spray_in_each_nostril} susp ended Flonase Sensimist 27.5 MCG/SPRAY eCW1 ([facility]) NasoNeb Nebulizer Replacement - NasoNeb Nebulizer Replacemen t - 01/27/2020 12:00:00 AM EDT active NasoNeb Nebulizer Replacement - eCW1 ([facility]) NasoNeb Nebulizer Replacement - NasoNeb Nebulizer Replacemen t - 01/27/2020 12:00:00 AM EDT active NasoNeb Nebulizer Replacement - eCW1 ([facility]) Alcohol Swabs - Alcohol Swabs - 01/27/2020 12:00:00 AM EDT active Alcohol Swabs - eCW1 ([facility]) Alcohol Swabs - Alcohol Swabs - 01/27/2020 12:00:00 AM EDT active Alcohol Swabs - eCW1 ([facility]) Alcohol Swabs - Alcohol Swabs - 01/27/2020 12:00:00 AM EDT active Alcohol Swabs - eCW1 ([facility]) NasoNeb Nebulizer Replacement - NasoNeb Nebulizer Replacemen t - 01/27/2020 12:00:00 AM EDT active NasoNeb Nebulizer Replacement - eCW1 ([facility]) Flonase Sensimist 27.5 MCG/SPRAY Flonase Sensimist 27.5 MCG/ SPRAY 01/27/2020 12:00:00 AM EDT 1.0 {spray_in_each_nostril} susp ended Flonase Sensimist 27.5 MCG/SPRAY eCW1 ([facility]) Alcohol Swabs - Alcohol Swabs - 01/27/2020 12:00:00 AM EDT active Alcohol Swabs - eCW1 ([facility]) Nebulizer Air Tube/Plugs - Nebulizer Air Tube/Plugs - 2019 12:00:00 AM EDT active Nebulizer Air Tub e/Plugs - eCW1 ([facility]) NasoNeb Nebulizer Replacement - NasoNeb Nebulizer Replacemen t - 01/27/2020 12:00:00 AM EDT active NasoNeb Nebulizer Replacement - eCW1 ([facility]) Nebulizer Air Tube/Plugs - Nebulizer Air Tube/Plugs - 2019 12:00:00 AM EDT active Nebulizer Air Tub e/Plugs - eCW1 ([facility]) Nebulizer Air Tube/Plugs - Nebulizer Air Tube/Plugs - 2019 12:00:00 AM EDT active Nebulizer Air Tub e/Plugs - eCW1 ([facility]) Alcohol Swabs - Alcohol Swabs - 01/27/2020 12:00:00 AM EDT active Alcohol Swabs - eCW1 ([facility]) Nebulizer Air Tube/Plugs - Nebulizer Air Tube/Plugs - 2019 12:00:00 AM EDT active Nebulizer Air Tub e/Plugs - eCW1 ([facility]) Alcohol Swabs - Alcohol Swabs - 01/27/2020 12:00:00 AM EDT active Alcohol Swabs - eCW1 ([facility]) Flonase Sensimist 27.5 MCG/SPRAY Flonase Sensimist 27.5 MCG/ SPRAY 01/27/2020 12:00:00 AM EDT 1.0 {spray_in_each_nostril} susp ended Flonase Sensimist 27.5 MCG/SPRAY eCW1 ([facility]) Nebulizer Air Tube/Plugs - Nebulizer Air Tube/Plugs - 2019 12:00:00 AM EDT active as directed eCW1 ([facility]) Flonase Sensimist 27.5 MCG/SPRAY Flonase Sensimist 27.5 MCG/ SPRAY 01/27/2020 12:00:00 AM EDT 1.0 {spray_in_each_nostril} susp ended Flonase Sensimist 27.5 MCG/SPRAY eCW1 ([facility]) Alcohol Swabs - Alcohol Swabs - 01/27/2020 12:00:00 AM EDT active Alcohol Swabs - eCW1 ([facility]) Alcohol Swabs - Alcohol Swabs - 01/27/2020 12:00:00 AM EDT active Alcohol Swabs - eCW1 ([facility]) Flonase Sensimist 27.5 MCG/SPRAY Flonase Sensimist 27.5 MCG/ SPRAY 01/27/2020 12:00:00 AM EDT 1.0 {spray_in_each_nostril} susp ended Flonase Sensimist 27.5 MCG/SPRAY eCW1 ([facility]) Nebulizer Air Tube/Plugs - Nebulizer Air Tube/Plugs - 2019 12:00:00 AM EDT active Nebulizer Air Tub e/Plugs - eCW1 ([facility]) Nebulizer Air Tube/Plugs - Nebulizer Air Tube/Plugs - 2019 12:00:00 AM EDT active Nebulizer Air Tub e/Plugs - eCW1 ([facility]) Nebulizer Air Tube/Plugs - Nebulizer Air Tube/Plugs - 2019 12:00:00 AM EDT active Nebulizer Air Tub e/Plugs - eCW1 ([facility]) Flonase Sensimist 27.5 MCG/SPRAY Flonase Sensimist 27.5 MCG/ SPRAY 01/27/2020 12:00:00 AM EDT 1.0 {spray_in_each_nostril} susp ended Flonase Sensimist 27.5 MCG/SPRAY eCW1 ([facility]) Nebulizer Air Tube/Plugs - Nebulizer Air Tube/Plugs - 2019 12:00:00 AM EDT active Nebulizer Air Tub e/Plugs - eCW1 ([facility]) NasoNeb Nebulizer Replacement - NasoNeb Nebulizer Replacemen t - 01/27/2020 12:00:00 AM EDT active NasoNeb Nebulizer Replacement - eCW1 ([facility]) Flonase Sensimist 27.5 MCG/SPRAY Flonase Sensimist 27.5 MCG/ SPRAY 01/27/2020 12:00:00 AM EDT 1.0 {spray_in_each_nostril} susp ended Flonase Sensimist 27.5 MCG/SPRAY eCW1 ([facility]) Nebulizer Air Tube/Plugs - Nebulizer Air Tube/Plugs - 2019 12:00:00 AM EDT active Nebulizer Air Tub e/Plugs - eCW1 ([facility]) Nebulizer Air Tube/Plugs - Nebulizer Air Tube/Plugs - 2019 12:00:00 AM EDT active Nebulizer Air Tub e/Plugs - eCW1 ([facility]) NasoNeb Nebulizer Replacement - NasoNeb Nebulizer Replacemen t - 01/27/2020 12:00:00 AM EDT active NasoNeb Nebulizer Replacement - eCW1 ([facility]) NasoNeb Nebulizer Replacement - NasoNeb Nebulizer Replacemen t - 01/27/2020 12:00:00 AM EDT active NasoNeb Nebulizer Replacement - eCW1 ([facility]) Alcohol Swabs - Alcohol Swabs - 01/27/2020 12:00:00 AM EDT active Alcohol Swabs - eCW1 ([facility]) Flonase Sensimist 27.5 MCG/SPRAY Flonase Sensimist 27.5 MCG/ SPRAY 01/27/2020 12:00:00 AM EDT 1.0 {spray_in_each_nostril} susp ended Flonase Sensimist 27.5 MCG/SPRAY eCW1 ([facility]) Nebulizer Air Tube/Plugs - Nebulizer Air Tube/Plugs - 2019 12:00:00 AM EDT active Nebulizer Air Tub e/Plugs - eCW1 ([facility]) Nebulizer Air Tube/Plugs - Nebulizer Air Tube/Plugs - 2019 12:00:00 AM EDT active Nebulizer Air Tub e/Plugs - eCW1 ([facility]) Nebulizer Air Tube/Plugs - Nebulizer Air Tube/Plugs - 2019 12:00:00 AM EDT active Nebulizer Air Tub e/Plugs - eCW1 ([facility]) Flonase Sensimist 27.5 MCG/SPRAY Flonase Sensimist 27.5 MCG/ SPRAY 01/27/2020 12:00:00 AM EDT 1.0 {spray_in_each_nostril} susp ended Flonase Sensimist 27.5 MCG/SPRAY eCW1 ([facility]) Alcohol Swabs - Alcohol Swabs - 01/27/2020 12:00:00 AM EDT active Alcohol Swabs - eCW1 ([facility]) Flonase Sensimist 27.5 MCG/SPRAY Flonase Sensimist 27.5 MCG/ SPRAY 01/27/2020 12:00:00 AM EDT 1.0 {spray_in_each_nostril} susp ended Flonase Sensimist 27.5 MCG/SPRAY eCW1 ([facility]) NasoNeb Nebulizer Replacement - NasoNeb Nebulizer Replacemen t - 01/27/2020 12:00:00 AM EDT active NasoNeb Nebulizer Replacement - eCW1 ([facility]) Flonase Sensimist 27.5 MCG/SPRAY Flonase Sensimist 27.5 MCG/ SPRAY 01/27/2020 12:00:00 AM EDT active 1 spray in each nostril eCW1 ([facility]) NasoNeb Nebulizer Replacement - NasoNeb Nebulizer Replacemen t - 01/27/2020 12:00:00 AM EDT active NasoNeb Nebulizer Replacement - eCW1 ([facility]) NasoNeb Nebulizer Replacement - NasoNeb Nebulizer Replacemen t - 01/27/2020 12:00:00 AM EDT active as direc imelda eCW1 ([facility]) Alcohol Swabs - Alcohol Swabs - 01/27/2020 12:00:00 AM EDT active Alcohol Swabs - eCW1 ([facility]) Alcohol Swabs - Alcohol Swabs - 01/27/2020 12:00:00 AM EDT active as directed eCW1 ([facility]) Nebulizer Air Tube/Plugs - Nebulizer Air Tube/Plugs - 2019 12:00:00 AM EDT active Nebulizer Air Tub e/Plugs - eCW1 ([facility]) NasoNeb Nebulizer Replacement - NasoNeb Nebulizer Replacemen t - 01/27/2020 12:00:00 AM EDT active NasoNeb Nebulizer Replacement - eCW1 ([facility]) Nebulizer Air Tube/Plugs - Nebulizer Air Tube/Plugs - 2019 12:00:00 AM EDT active Nebulizer Air Tub e/Plugs - eCW1 ([facility]) Alcohol Swabs - Alcohol Swabs - 01/27/2020 12:00:00 AM EDT active Alcohol Swabs - eCW1 ([facility]) Alcohol Swabs - Alcohol Swabs - 01/27/2020 12:00:00 AM EDT active Alcohol Swabs - eCW1 ([facility]) Alcohol Swabs - Alcohol Swabs - 01/27/2020 12:00:00 AM EDT active Alcohol Swabs - eCW1 ([facility]) Flonase Sensimist 27.5 MCG/SPRAY Flonase Sensimist 27.5 MCG/ SPRAY 01/27/2020 12:00:00 AM EDT 1.0 {spray_in_each_nostril} susp ended Flonase Sensimist 27.5 MCG/SPRAY eCW1 ([facility]) NasoNeb Nebulizer Replacement - NasoNeb Nebulizer Replacemen t - 01/27/2020 12:00:00 AM EDT active NasoNeb Nebulizer Replacement - eCW1 ([facility]) NasoNeb Nebulizer Replacement - NasoNeb Nebulizer Replacemen t - 01/27/2020 12:00:00 AM EDT active NasoNeb Nebulizer Replacement - eCW1 ([facility]) Flonase Sensimist 27.5 MCG/SPRAY Flonase Sensimist 27.5 MCG/ SPRAY 01/27/2020 12:00:00 AM EDT 1.0 {spray_in_each_nostril} susp ended Flonase Sensimist 27.5 MCG/SPRAY eCW1 ([facility]) Flonase Sensimist 27.5 MCG/SPRAY Flonase Sensimist 27.5 MCG/ SPRAY 01/27/2020 12:00:00 AM EDT 1.0 {spray_in_each_nostril} susp ended Flonase Sensimist 27.5 MCG/SPRAY eCW1 ([facility]) Nebulizer Air Tube/Plugs - Nebulizer Air Tube/Plugs - 2019 12:00:00 AM EDT active Nebulizer Air Tub e/Plugs - eCW1 ([facility]) Flonase Sensimist 27.5 MCG/SPRAY Flonase Sensimist 27.5 MCG/ SPRAY 01/27/2020 12:00:00 AM EDT 1.0 {spray_in_each_nostril} susp ended Flonase Sensimist 27.5 MCG/SPRAY eCW1 ([facility]) Nebulizer Air Tube/Plugs - Nebulizer Air Tube/Plugs - 2019 12:00:00 AM EDT active Nebulizer Air Tub e/Plugs - eCW1 ([facility]) Alcohol Swabs - Alcohol Swabs - 01/27/2020 12:00:00 AM EDT active Alcohol Swabs - eCW1 ([facility]) Alcohol Swabs - Alcohol Swabs - 01/27/2020 12:00:00 AM EDT active as directed eCW1 ([facility]) Alcohol Swabs - Alcohol Swabs - 01/27/2020 12:00:00 AM EDT active Alcohol Swabs - eCW1 ([facility]) CloudSyncTouch Verio w/Device Kit [id number] 01/21/2020 12:00:00 AM EDT 1 {each} Does not apply aborted Type 2 diabetes mellitus with hyperglycemia, with long-term current use of insulin 1 each by Does not ap ply route daily DX E 11.65 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 MDD 102 units. DX: E11.65 [facility] Type 2 diabetes mellitus with hypoglycem ia unawareness Folic Acid 0.8 MG Oral Tablet Folic Acid 01/09/2020 12:00:00 AM EST ORAL active MEDENT ([facility]) Sumatriptan 50 MG Oral Tablet [Imitrex] Imitrex 01/09/2020 12:00:0 0 AM EST ORAL active [facility] ([facility]) Insulin Lispro 100 UNT/ML Injectable Solution [Humalog] Shereen log 01/09/2020 12:00:00 AM EST active [facility] ([facility]) gabapentin 300 MG Oral Capsule Gabapentin 01/09/2020 12:00:00 AM EST ORAL active [facility] ([facility]) Furosemide 40 MG Oral Tablet [Lasix] Lasix 01/09/2020 12:00:00 AM EST ORAL active [facility] ([facility]) Lidocaine Hydrochloride 0.05 MG/MG Transdermal Patch [Lidode rm] Lidoderm 01/09/2020 12:00:00 AM EST active [facility] ([facility]) Losartan Potassium 50 MG Oral Tablet Losartan Potassium 11/2019 12:00:00 AM EST ORAL active [facility] ([facility]) metaxalone 800 MG Oral Tablet Metaxalone 01/09/2020 12:00:00 AM EST ORAL completed [facility] ([facility]) 24 HR Metformin hydrochloride 750 MG Extended Release Oral Tablet Metformin HCL ER 01/09/2020 12:00:00 AM EST active [facility] ([facility]) buspirone hydrochloride 10 MG Oral Tablet Buspirone HCL 01/09/2020 12:00:00 AM EST ORAL active [facility] ([facility]) Rosuvastatin calcium 20 MG Oral Tablet Rosuvastatin Calcium 01/09/2020 12:00:00 AM EST ORAL active [facility] ([facility]) apixaban 5 MG Oral Tablet [Eliquis] Eliquis 01/09/2020 12:00:[address] ORAL completed [facility] ([facility]) Omeprazole 20 MG Delayed Release Oral Capsule Omeprazole 01/09/2020 12:00:00 AM EST ORAL active [facility] ([facility]) Methotrexate 2.5 MG Oral Tablet Methotrexate 01/09/2020 12:00:00 AM EST active [facility] ([facility]) Spironolactone 25 MG Oral Tablet Spironolactone 01/09/2020 12:00:00 A M EST ORAL active [facility]) Toujeo Max Solostar Toujeo Max Solostar 01/09/2020 12:00:00 AM EST active [facility]) tramadol hydrochloride 50 MG Oral Tablet Tramadol HCL 01/09/2020 12:00:00 AM EST ORAL completed [facility] ([facility]) Ergocalciferol 2000 UNT Oral Tablet Vitamin D2 01/09/2020 12:00:00 AM EST ORAL active MED[facility] ([facility]) Zolpidem tartrate 5 MG Oral Tablet Zolpidem Tartrate 01/09/2020 12:00:00 AM EST ORAL active [facility] ( [facility]) Cefuroxime 500 MG Oral Tablet Cefuroxime Axetil 500 MG Cefur oxime Axetil 500 MG 01/03/2020 12:00:00 AM EST suspended 1 tablet eCW1 ([facility]) Cefuroxime 500 MG Oral Tablet Cefuroxime Axetil 500 MG Cefur oxime Axetil 500 MG 01/03/2020 12:00:00 AM EST suspended 1 tablet eCW1 ([facility]) Cefuroxime 500 MG Oral Tablet Cefuroxime Axetil 500 MG Cefur oxime Axetil 500 MG 01/03/2020 12:00:00 AM EST active 1 tablet eCW1 ([facility]) 24 HR Oxybutynin chloride 5 MG Extended Release Oral Tablet Oxybutynin Chloride ER 5 MG Oxybutynin Chloride ER 5 MG 12/22/2019 12:00:00 AM EST 1.0 {tablet} active Oxybutynin Chloride ER 5 MG eCW1 ([facility]) 24 HR Oxybutynin chloride 5 MG Extended Release Oral Tablet Oxybutynin Chloride ER 5 MG Oxybutynin Chloride ER 5 MG 12/22/2019 12:00:00 AM EST 1.0 {tablet} active Oxybutynin Chloride ER 5 MG eCW1 ([facility]) 24 HR Oxybutynin chloride 5 MG Extended Release Oral Tablet Oxybutynin Chloride ER 5 MG Oxybutynin Chloride ER 5 MG 12/22/2019 12:00:00 AM EST 1.0 {tablet} active Oxybutynin Chloride ER 5 MG eCW1 ([facility]) 24 HR Oxybutynin chloride 5 MG Extended Release Oral Tablet Oxybutynin Chloride ER 5 MG Oxybutynin Chloride ER 5 MG 12/22/2019 12:00:00 AM EST 1.0 {tablet} active Oxybutynin Chloride ER 5 MG eCW1 ([facility]) 24 HR Oxybutynin chloride 5 MG Extended Release Oral Tablet Oxybutynin Chloride ER 5 MG Oxybutynin Chloride ER 5 MG 12/22/2019 12:00:00 AM EST 1.0 {tablet} active Oxybutynin Chloride ER 5 MG eCW1 ([facility]) 24 HR Oxybutynin chloride 5 MG Extended Release Oral Tablet Oxybutynin Chloride ER 5 MG Oxybutynin Chloride ER 5 MG 12/22/2019 12:00:00 AM EST active 1 tablet eCW1 ([facility]) 24 HR Oxybutynin chloride 5 MG Extended Release Oral Tablet Oxybutynin Chloride ER 5 MG Oxybutynin Chloride ER 5 MG 12/22/2019 12:00:00 AM EST 1.0 {tablet} active Oxybutynin Chloride ER 5 MG eCW1 ([facility]) 24 HR Oxybutynin chloride 5 MG Extended Release Oral Tablet Oxybutynin Chloride ER 5 MG Oxybutynin Chloride ER 5 MG 12/22/2019 12:00:00 AM EST active 1 tablet eCW1 ([facility]) 24 HR Oxybutynin chloride 5 MG Extended Release Oral Tablet Oxybutynin Chloride ER 5 MG Oxybutynin Chloride ER 5 MG 12/22/2019 12:00:00 AM EST 1.0 {tablet} active Oxybutynin Chloride ER 5 MG eCW1 ([facility]) 24 HR Oxybutynin chloride 5 MG Extended Release Oral Tablet Oxybutynin Chloride ER 5 MG Oxybutynin Chloride ER 5 MG 12/22/2019 12:00:00 AM EST 1.0 {tablet} active Oxybutynin Chloride ER 5 MG eCW1 ([facility]) 24 HR Oxybutynin chloride 5 MG Extended Release Oral Tablet Oxybutynin Chloride ER 5 MG Oxybutynin Chloride ER 5 MG 12/22/2019 12:00:00 AM EST 1.0 {tablet} active Oxybutynin Chloride ER 5 MG eCW1 ([facility]) 24 HR Oxybutynin chloride 5 MG Extended Release Oral Tablet Oxybutynin Chloride ER 5 MG Oxybutynin Chloride ER 5 MG 12/22/2019 12:00:00 AM EST active 1 tablet eCW1 ([facility]) 24 HR Oxybutynin chloride 5 MG Extended Release Oral Tablet Oxybutynin Chloride ER 5 MG Oxybutynin Chloride ER 5 MG 12/22/2019 12:00:00 AM EST 1.0 {tablet} active Oxybutynin Chloride ER 5 MG eCW1 ([facility]) 24 HR Oxybutynin chloride 5 MG Extended Release Oral Tablet Oxybutynin Chloride ER 5 MG Oxybutynin Chloride ER 5 MG 12/22/2019 12:00:00 AM EST 1.0 {tablet} active Oxybutynin Chloride ER 5 MG eCW1 ([facility]) 24 HR Oxybutynin chloride 5 MG Extended Release Oral Tablet Oxybutynin Chloride ER 5 MG Oxybutynin Chloride ER 5 MG 12/22/2019 12:00:00 AM EST 1.0 {tablet} active Oxybutynin Chloride ER 5 MG eCW1 ([facility]) 24 HR Oxybutynin chloride 5 MG Extended Release Oral Tablet Oxybutynin Chloride ER 5 MG Oxybutynin Chloride ER 5 MG 12/22/2019 12:00:00 AM EST 1.0 {tablet} active Oxybutynin Chloride ER 5 MG eCW1 ([facility]) 24 HR Oxybutynin chloride 5 MG Extended Release Oral Tablet Oxybutynin Chloride ER 5 MG Oxybutynin Chloride ER 5 MG 12/22/2019 12:00:00 AM EST 1.0 {tablet} active Oxybutynin Chloride ER 5 MG eCW1 ([facility]) 24 HR Oxybutynin chloride 5 MG Extended Release Oral Tablet Oxybutynin Chloride ER 5 MG Oxybutynin Chloride ER 5 MG 12/22/2019 12:00:00 AM EST 1.0 {tablet} active Oxybutynin Chloride ER 5 MG eCW1 ([facility]) 24 HR Oxybutynin chloride 5 MG Extended Release Oral Tablet Oxybutynin Chloride ER 5 MG Oxybutynin Chloride ER 5 MG 12/22/2019 12:00:00 AM EST 1.0 {tablet} active Oxybutynin Chloride ER 5 MG eCW1 ([facility]) 24 HR Oxybutynin chloride 5 MG Extended Release Oral Tablet Oxybutynin Chloride ER 5 MG Oxybutynin Chloride ER 5 MG 12/22/2019 12:00:00 AM EST 1.0 {tablet} active Oxybutynin Chloride ER 5 MG eCW1 ([facility]) 24 HR Oxybutynin chloride 5 MG Extended Release Oral Tablet Oxybutynin Chloride ER 5 MG Oxybutynin Chloride ER 5 MG 12/22/2019 12:00:00 AM EST 1.0 {tablet} active Oxybutynin Chloride ER 5 MG eCW1 ([facility]) 24 HR Oxybutynin chloride 5 MG Extended Release Oral Tablet Oxybutynin Chloride ER 5 MG Oxybutynin Chloride ER 5 MG 12/22/2019 12:00:00 AM EST 1.0 {tablet} active Oxybutynin Chloride ER 5 MG eCW1 ([facility]) 24 HR Oxybutynin chloride 5 MG Extended Release Oral Tablet Oxybutynin Chloride ER 5 MG Oxybutynin Chloride ER 5 MG 12/22/2019 12:00:00 AM EST 1.0 {tablet} active Oxybutynin Chloride ER 5 MG eCW1 ([facility]) 24 HR Oxybutynin chloride 5 MG Extended Release Oral Tablet Oxybutynin Chloride ER 5 MG Oxybutynin Chloride ER 5 MG 12/22/2019 12:00:00 AM EST 1.0 {tablet} active Oxybutynin Chloride ER 5 MG eCW1 ([facility]) 24 HR Oxybutynin chloride 5 MG Extended Release Oral Tablet Oxybutynin Chloride ER 5 MG Oxybutynin Chloride ER 5 MG 12/22/2019 12:00:00 AM EST 1.0 {tablet} active Oxybutynin Chloride ER 5 MG eCW1 ([facility]) 24 HR Oxybutynin chloride 5 MG Extended Release Oral Tablet Oxybutynin Chloride ER 5 MG Oxybutynin Chloride ER 5 MG 12/22/2019 12:00:00 AM EST 1.0 {tablet} active Oxybutynin Chloride ER 5 MG eCW1 ([facility]) 24 HR Oxybutynin chloride 5 MG Extended Release Oral Tablet Oxybutynin Chloride ER 5 MG Oxybutynin Chloride ER 5 MG 12/22/2019 12:00:00 AM EST 1.0 {tablet} active Oxybutynin Chloride ER 5 MG eCW1 ([facility]) 24 HR Oxybutynin chloride 5 MG Extended Release Oral Tablet Oxybutynin Chloride ER 5 MG Oxybutynin Chloride ER 5 MG 12/22/2019 12:00:00 AM EST 1.0 {tablet} active Oxybutynin Chloride ER 5 MG eCW1 ([facility]) 24 HR Oxybutynin chloride 5 MG Extended Release Oral Tablet Oxybutynin Chloride ER 5 MG Oxybutynin Chloride ER 5 MG 12/22/2019 12:00:00 AM EST 1.0 {tablet} active Oxybutynin Chloride ER 5 MG eCW1 ([facility]) 24 HR Oxybutynin chloride 5 MG Extended Release Oral Tablet Oxybutynin Chloride ER 5 MG Oxybutynin Chloride ER 5 MG 12/22/2019 12:00:00 AM EST 1.0 {tablet} active Oxybutynin Chloride ER 5 MG eCW1 ([facility]) 24 HR Oxybutynin chloride 5 MG Extended Release Oral Tablet Oxybutynin Chloride ER 5 MG Oxybutynin Chloride ER 5 MG 12/22/2019 12:00:00 AM EST 1.0 {tablet} active Oxybutynin Chloride ER 5 MG eCW1 ([facility]) 24 HR Oxybutynin chloride 5 MG Extended Release Oral Tablet Oxybutynin Chloride ER 5 MG Oxybutynin Chloride ER 5 MG 12/22/2019 12:00:00 AM EST 1.0 {tablet} active Oxybutynin Chloride ER 5 MG eCW1 ([facility]) 24 HR Oxybutynin chloride 5 MG Extended Release Oral Tablet Oxybutynin Chloride ER 5 MG Oxybutynin Chloride ER 5 MG 12/22/2019 12:00:00 AM EST active 1 tablet eCW1 ([facility]) 24 HR Oxybutynin chloride 5 MG Extended Release Oral Tablet Oxybutynin Chloride ER 5 MG Oxybutynin Chloride ER 5 MG 12/22/2019 12:00:00 AM EST 1.0 {tablet} active Oxybutynin Chloride ER 5 MG eCW1 ([facility]) 24 HR Oxybutynin chloride 5 MG Extended Release Oral Tablet Oxybutynin Chloride ER 5 MG Oxybutynin Chloride ER 5 MG 12/22/2019 12:00:00 AM EST 1.0 {tablet} active Oxybutynin Chloride ER 5 MG eCW1 ([facility]) 24 HR Oxybutynin chloride 5 MG Extended Release Oral Tablet Oxybutynin Chloride ER 5 MG Oxybutynin Chloride ER 5 MG 12/22/2019 12:00:00 AM EST 1.0 {tablet} active Oxybutynin Chloride ER 5 MG eCW1 ([facility]) 24 HR Oxybutynin chloride 5 MG Extended Release Oral Tablet Oxybutynin Chloride ER 5 MG Oxybutynin Chloride ER 5 MG 12/22/2019 12:00:00 AM EST active 1 tablet eCW1 ([facility]) 24 HR Oxybutynin chloride 5 MG Extended Release Oral Tablet Oxybutynin Chloride ER 5 MG Oxybutynin Chloride ER 5 MG 12/22/2019 12:00:00 AM EST 1.0 {tablet} active Oxybutynin Chloride ER 5 MG eCW1 ([facility]) 24 HR Oxybutynin chloride 5 MG Extended Release Oral Tablet Oxybutynin Chloride ER 5 MG Oxybutynin Chloride ER 5 MG 12/22/2019 12:00:00 AM EST 1.0 {tablet} active Oxybutynin Chloride ER 5 MG eCW1 ([facility]) 24 HR Oxybutynin chloride 5 MG Extended Release Oral Tablet Oxybutynin Chloride ER 5 MG Oxybutynin Chloride ER 5 MG 12/22/2019 12:00:00 AM EST 1.0 {tablet} active Oxybutynin Chloride ER 5 MG eCW1 ([facility]) 24 HR Oxybutynin chloride 5 MG Extended Release Oral Tablet Oxybutynin Chloride ER 5 MG Oxybutynin Chloride ER 5 MG 12/22/2019 12:00:00 AM EST 1.0 {tablet} active Oxybutynin Chloride ER 5 MG eCW1 ([facility]) ammonium lactate 120 MG/ML Topical Cream Ammonium Lactate 12/20/2019 12:00:00 AM EST active [facility] ([facility] 24 HR Oxybutynin chloride 5 MG Extended Release Oral T ablet Oxybutynin Chloride ER 12/16/2019 12:00:00 AM EST ORAL active [facility] ([facility], ) 24 HR Oxybutynin chloride 5 MG Extended Release Oral Tablet Oxybutynin Chloride ER 5 MG Oxybutynin Chloride ER 5 MG 12/16/2019 12:00:00 AM EST active 1 tablet eCW1 ([facility]) 3 ML Insulin Lispro 100 UNT/ML Pen [...] of priming and titiration. Dx code: E11.65 [facility] Type 2 diabetes mellitus with hyperglyce doug, with long-term current use of insulin Glucagon 1 MG Injection glucagon (GLUCAGON EMERGENCY) 1 MG injection glucagon (GLUCAGON EMERGENCY) 1 MG injection 06/17/2019 12:00:00 AM EDT active Type 2 diabetes mellitus with hyperglycemia, with long-term current use of insulin Inject 1 mg IM as directed as needed. D X E11.65 [facility] Type 2 diabetes mellitus with hyperglyce doug, with long-term current use of insulin 24 HR Metformin hydrochloride 500 MG Ext ended Release Oral Tablet metformin (GLUCOPHAGE-XR) 500 MG 24 hr tablet metformin (GLUCOPHAGE-XR) 500 MG 24 hr tablet 09/22/2018 12:00:00 AM EST 1000 mg Oral aborted Take 2 tablets by mouth Two times daily with meals [facility] OneTouch Delica Plus Lancet 33 gauge [id number] completed OneTouch Delica Plus Lancet 33 gauge AKIR[facility] ([facility]) sure comfort mis 31gx3/16 completed sure comfort mis 31gx3/16 [facility] ([facility]) 24 HR Metformin hydrochloride 500 MG Ext ended Release Oral Tablet metformin ER 500 mg tablet,extended release 24 hr metformin ER 500 mg tablet,extended rele ase 24 hr completed 24 HR M etformin hydrochloride 500 MG Extended Release Oral Tablet [facility] ([facility]) NITROFURANTOIN, MACROCRYSTALS 25 MG / Ni trofurantoin, Monohydrate 75 MG Oral Capsule nitrofurantoin monohydrate/macrocrystals 100 mg capsule nitrofurantoin monohydrate/macrocrystals 100 mg capsule completed NITROFURANTOIN, MACROCRYSTALS 25 MG / Nitrofurantoin, Monohydrate 75 MG Oral Capsule [facility] ([facility] ) NITROFURANTOIN, MACROCRYSTALS 25 MG / Ni trofurantoin, Monohydrate 75 MG Oral Capsule nitrofurantoin monohydrate/macrocrystals 100 mg capsule nitrofurantoin monohydrate/macrocrystals 100 mg capsule completed NITROFURANTOIN, MACROCRYSTALS 25 MG / Nitrofurantoin, Monohydrate 75 MG Oral Capsule [facility] Unifine Pentips Plus 31 gauge x 3/16" needle [id number] completed Unifine Pentips Plus 31 gauge x 3/16" needle [facility] ([facility] ) Cephalexin 500 MG Oral Capsule cephalexin 500 mg capsu le cephalexin 500 mg capsule completed Cephalexin 500 MG Oral Capsule [facility] ([facility] ) Glucagon 1 MG Injection Glucagon Emergen cy Kit (human-recomb) 1 mg solution for injection Glucagon Emergency Kit (human-recomb) 1 mg solution for injectio n completed glucagon (rDNA) 1 MG I njection [facility]IR[facility] ([facility] ) Cephalexin 500 MG Oral Capsule cephalexin 500 mg capsu le cephalexin 500 mg capsule completed Cephalexin 500 MG Oral Capsule [facility] ([facility] ) Amoxicillin 875 MG / Clavulanate 125 MG Oral Tablet amoxicillin 875 mg-potassium clavulanate 125 mg tablet amoxicillin 875 mg-potassium clavulanate 125 mg tablet completed amoxici llin 875 MG / clavulanate 125 MG Oral Tablet [facility] ([facility] ) Cefuroxime 500 MG Oral Tablet cefuroxime axetil 500 mg tablet cefuroxime axetil 500 mg tablet completed cefuroxi me 500 MG Oral Tablet [facility] ([facility] ) 24 HR Metformin hydrochloride 500 MG Ext ended Release Oral Tablet metformin ER 500 mg tablet,extended release 24 hr metformin ER 500 mg tablet,extended rele ase 24 hr completed 24 HR M etformin hydrochloride 500 MG Extended Release Oral Tablet [facility] ([facility] ) 24 HR Metformin hydrochloride 500 MG Ext ended Release Oral Tablet metformin ER 500 mg tablet,extended release 24 hr metformin ER 500 mg tablet,extended rele ase 24 hr completed 24 HR M etformin hydrochloride 500 MG Extended Release Oral Tablet [facility] ([facility] ) Ondansetron 4 MG Disintegrating Oral Tab let ondansetron 4 mg disintegrating tablet ondansetron 4 mg disintegrating tablet completed Ondansetron 4 MG Disintegrating Oral Tablet [facility] ([facility] ) ciclopirox 80 MG/ML Topical Solution ciclopirox 8 % to pical solution ciclopirox 8 % topical solution completed ciclopirox 80 MG/ML Topical Solution [facility] ([facility] ) Glucagon 1 MG Injection Glucagon Emergen cy Kit (human-recomb) 1 mg solution for injection Glucagon Emergency Kit (human-recomb) 1 mg solution for injectio n completed glucagon (rDNA) 1 MG I njection [facility] ([facility] ) ciclopirox 80 MG/ML Topical Solution ciclopirox 8 % to pical solution ciclopirox 8 % topical solution completed ciclopirox 80 MG/ML Topical Solution [facility] ([facility] ) Afluria Qd 2018- (36 mos up)(PF)60 mcg (15 mcg x4)/0.5 mL IM s yringe [id number] completed 0.5 ML influen za A virus A/[facility] (H1N1) antigen 0.03 MG/ML / influenza A virus A/ (H3N2) antigen 0.03 MG/ML / influenza B virus B/ antigen 0.03 MG/ML / influenza B virus B/[facility] antigen 0.03 MG/ML Prefilled Syringe [Afluria Quadrivalent ] [facility]IR[facility] ([facility] ) OneTouch Verio test strips [id number] comp leted OneTouch Verio test strips [facility] ([facility] ) NITROFURANTOIN, MACROCRYSTALS 25 MG / Ni trofurantoin, Monohydrate 75 MG Oral Capsule nitrofurantoin monohydrate/macrocrystals 100 mg capsule nitrofurantoin monohydrate/macrocrystals 100 mg capsule completed NITROFURANTOIN, MACROCRYSTALS 25 MG / Nitrofurantoin, Monohydrate 75 MG Oral Capsule [facility] ([facility]) sure comfort mis 31gx3/16 completed sure comfort mis 31gx3/16 [facility] ([facility]) sure comfort mis 31gx3/16 completed sure comfort mis 31gx3/16 [facility] ([facility]) Furosemide 40 MG Oral Tablet furosemide (LASIX) 40 MG tablet furosemide (LASIX) 40 MG tablet 40 mg Oral aborted Take 40 mg by mouth daily. [facility] Afluria Qd 2019- (36 mos up)(PF)60 mcg (15 mcg x4)/0.5 mL IM s yringe [id number] completed 0.5 ML influen za A virus A/[facility] (H1N1) antigen 0.03 MG/ML / influenza A virus A/ (H3N2) antigen 0.03 MG/ML / influenza B virus B/ antigen 0.03 MG/ML / influenza B virus B/[facility] antigen 0.03 MG/ML Prefilled Syringe [Afluria Quadrivalent ] [facility] ([facility]) ciclopirox 80 MG/ML Topical Solution ciclopirox 8 % to pical solution ciclopirox 8 % topical solution completed ciclopirox 80 MG/ML Topical Solution [facility] ([facility]) metaxalone 800 MG Oral Tablet metaxalone (SKELAXIN) 80 0 MG tablet metaxalone (SKELAXIN) 800 MG tablet 800 mg Oral aborted Take 800 mg by mouth Three times daily. [facility] Glucagon 1 MG Injection Glucagon Emergen cy Kit (human-recomb) 1 mg solution for injection Glucagon Emergency Kit (human-recomb) 1 mg solution for injectio n completed glucagon (rDNA) 1 MG I njection [facility] ([facility]) NITROFURANTOIN, MACROCRYSTALS 25 MG / Ni trofurantoin, Monohydrate 75 MG Oral Capsule nitrofurantoin monohydrate/macrocrystals 100 mg capsule nitrofurantoin monohydrate/macrocrystals 100 mg capsule completed nitrofurantoin, macrocrystals 25 MG / nitrofurantoin, monohydrate 75 MG Oral Capsule [facility] ([facility]) Ondansetron 4 MG Disintegrating Oral Tab let ondansetron 4 mg disintegrating tablet ondansetron 4 mg disintegrating tablet completed Ondansetron 4 MG Disintegrating Oral Tablet [facility] ([facility]) Glucagon 1 MG Injection Glucagon Emergen cy Kit (human-recomb) 1 mg solution for injection Glucagon Emergency Kit (human-recomb) 1 mg solution for injectio n completed glucagon (rDNA) 1 MG I njection [facility] ([facility]) Ondansetron 4 MG Disintegrating Oral Tab let ondansetron 4 mg disintegrating tablet ondansetron 4 mg disintegrating tablet completed ondansetron 4 MG Disintegrating Oral Tablet [facility] ([facility]) Apixaban (ELIQUIS PO) 5 mg Oral aborted Take 5 mg by mouth. [facility] Ondansetron 4 MG Disintegrating Oral Tab let ondansetron 4 mg disintegrating tablet ondansetron 4 mg disintegrating tablet completed Ondansetron 4 MG Disintegrating Oral Tablet [facility] ([facility]) ciclopirox 80 MG/ML Topical Solution ciclopirox 8 % to pical solution ciclopirox 8 % topical solution completed ciclopirox 80 MG/ML Topical Solution [facility] ([facility]) Afluria Qd 2019- (36 mos up)(PF)60 mcg (15 mcg x4)/0.5 mL IM s yringe [id number] completed 0.5 ML influen za A virus A/ (H1N1) antigen 0.03 MG/ML / influenza A virus A/[place] (H3N2) antigen 0.03 MG/ML / influenza B virus B/ antigen 0.03 MG/ML / influenza B virus B/[facility] antigen 0.03 MG/ML Prefilled Syringe [Afluria Quadrivalent ] [facility] ([facility]) OneTouch Verio Flex Meter [id number] compl eted OneTouch Verio Flex Meter [facility] ([facility]) sure comfort mis 31gx3/16 completed sure comfort mis 31gx3/16 [facility] ([facility]) buspirone hydrochloride 10 MG Oral Tablet buspirone 10 mg tablet buspirone 10 mg tablet completed buspirone hydro chloride 10 MG Oral Tablet [facility] ([facility]) Levofloxacin 750 MG Oral Tablet levoFLOXacin 750 MG Or al Tablet (LEVAQUIN) levoFLOXacin 750 MG Oral Tablet (LEVAQUIN) 750 mg Oral aborted Take 750 mg by mouth daily [facility] 24 HR Metformin hydrochloride 500 MG Ext ended Release Oral Tablet metformin ER 500 mg tablet,extended release 24 hr metformin ER 500 mg tablet,extended rele ase 24 hr completed 24 HR m etformin hydrochloride 500 MG Extended Release Oral Tablet [facility] ([facility]) buspirone hydrochloride 10 MG Oral Tablet buspirone 10 mg tablet buspirone 10 mg tablet completed buspirone hydro chloride 10 MG Oral Tablet [facility] ([facility]) Unifine Pentips 31 gauge x 3/16" needle [id number] completed Unifine Pentips 31 gauge x 3/16" needle [facility] ([facility]) Cephalexin 500 MG Oral Capsule cephalexin 500 mg capsu le cephalexin 500 mg capsule completed cephalexin 500 MG Oral Capsule [facility] ([facility]) Cephalexin 500 MG Oral Capsule cephalexin 500 mg capsu le cephalexin 500 mg capsule completed Cephalexin 500 MG Oral Capsule [facility] ([facility]) Insurance Providers Payer name Policy type / Coverage type Policy ID Covered alliance party ID Covered alliance party's relationship to [place] Policy [place] Plan Information EMEDNY [id number] SP [id number] [facility] [id number] SP [id number] UHC UNITED MEDICARE DUAL G [id number] Self [id number] MEDICAID [id number] Self [id number] [facility] [id number] SP [id number] [facility] [id number] SP [id number] [facility]) O [id number] S [id number] MEDICAID M [id number] MEDICARE AVNI [id number] S [id number] HEA [id number] MEDICAID HEA [id number] [facility] HEA [id number] S [id number] MEDICARE [id number] SP [id number] A [facility] [id number] SP [id number] Managed Care - [facility] Community Plan P [id number] S [id number] D Managed Care [facility] O [id number] S [id number] Medicaid Dental O [id number] S [id number] Medicaid S [id number] S [id number] MEDICAID [id number] SP [id number] MEDICARE [id number] SP [id number] ANSI-Not a Secondary Insurance [id number] ANSI-Medicare Part B [id number] ANSI-Medicaid [id number] MEDICARE [id number] SP [id number] Medicare Dme Medigap Part B [id number] Self 0 [id number] Medicaid Medicaid [id number] Self [id number] [facility] Comm Dual Plan Commercial [id number] Self [id number] Medicare Dme Medigap Part B [id number] Self [id number] Medicaid Medicaid [id number] Self [id number] [facility] Dual Plan Commercial [id number] Self [id number] Medicare Dme Medigap Part B [id number] Self 0 [id number] Medicaid Medicaid [id number] Self [id number] [facility] Dual Plan Commercial [id number] Self [id number] Medicare Dme Medigap Part B [id number] Self [id number] Medicaid Medicaid [id number] Self [id number] [facility] Dual Plan Commercial [id number] Self [id number] Medicare Dme Medigap Part B [id number] Self 0 [id number] Medicaid Medicaid [id number] Self [id number] [facility] Dual Plan Commercial [id number] Self [id number] Medicare Dme Medigap Part B [id number] Self 0 [id number] Medicaid Medicaid [id number] Self [id number] [facility] Dual Plan Commercial [id number] Self [id number] Medicare Dme Medigap Part B [id number] Self 0 [id number] Medicaid Medicaid [id number] Self [id number] [facility] Dual Plan Commercial [id number] Self [id number] ANSI-Medicaid [id number] ANSI-Medicare Part B [id number] ANSI-Not a Secondary Insurance [id number] ANSI-Medicaid [id number] ANSI-Medicare Part B [id number] ANSI-Not a Secondary Insurance [id number] ANSI-Not a Secondary Insurance [id number] ANSI-Medicare Part B [id number] ANSI-Medicaid [id number] ANSI-Medicare Part B [id number] ANSI-Not a Secondary Insurance [id number] ANSI-Medicaid [id number] Medicare Dme Medigap Part B [id number] Self 0 [id number] Medicaid Medicaid [id number] Self [id number] Comm Dual Plan Commercial [id number] Self [id number] ANSI-Not a Secondary Insurance [id number] ANSI-Medicare Part B [id number] ANSI-Medicaid [id number] ANSI-Not a Secondary Insurance [id number] ANSI-Medicaid [id number] ANSI-Medicare Part B [id number] ANSI-Medicare Part B [id number] ANSI-Medicaid [id number] ANSI-Not a Secondary Insurance [id number] ANSI-Medicaid [id number] ANSI-Not a Secondary Insurance [id number] ANSI-Medicare Part B [id number] UMR/[employer]OM[employer] RISK MANAGEMENT [id number] SP [id number] Medicare Dme Medigap Part B [id number] Self 0 [id number] Medicare Medigap Part B [id number] Self [id number] Medicaid Medicaid [id number] Self [id number] [facility] Dual Plan Commercial [id number] Self [id number] ANSI-Not a Secondary Insurance [id number] ANSI-Medicaid [id number] ANSI-Medicare Part B [id number] ANSI-Medicaid [id number] ANSI-Medicare Part B [id number] ANSI-Not a Secondary Insurance [id number] ANSI-Medicare Part B [id number] ANSI-Medicaid [id number] ANSI-Not a Secondary Insurance [id number] ANSI-Not a Secondary Insurance [id number] ANSI-Medicare Part B [id number] ANSI-Medicaid [id number] ANSI-Medicaid [id number] ANSI-Medicare Part B [id number] ANSI-Not a Secondary Insurance [id number] ANSI-Not a Secondary Insurance [id number] ANSI-Medicare Part B [id number] ANSI-Medicaid [id number] MEDICARE [id number] ANSI-Medicaid [id number] ANSI-Not a Secondary Insurance [id number] ANSI-Medicare Part B [id number] MEDICARE A [id number] Self [id number] A ANSI-Medicare Part B [id number] ANSI-Not a Secondary Insurance [id number] ANSI-Medicaid [id number] ANSI-Medicare Part B [id number] ANSI-Medicaid [id number] ANSI-Not a Secondary Insurance [id number] ANSI-Medicaid [id number] ANSI-Medicare Part B [id number] ANSI-Not a Secondary Insurance [id number] Medicare Dme Medigap Part B [id number] Self 0 [id number] Medicare Medigap Part B [id number] Self [id number] Medicaid Medicaid [id number] Self [id number] [facility] Dual Plan Commercial [id number] Self [id number] ANSI-Medicare Part B [id number] ANSI-Medicaid [id number] ANSI-Not a Secondary Insurance [id number] ANSI-Medicaid [id number] ANSI-Not a Secondary Insurance [id number] ANSI-Medicare Part B [id number] ANSI-Medicaid [id number] ANSI-Not a Secondary Insurance [id number] ANSI-Medicare Part B [id number] ANSI-Not a Secondary Insurance [id number] ANSI-Medicaid [id number] ANSI-Medicare Part B [id number] ANSI-Not a Secondary Insurance [id number] ANSI-Medicaid [id number] ANSI-Medicare Part B [id number] MEDICARE [id number] SP [id number] A MEDICAID [id number] SP [id number] MEDICARE [id number] SP [id number] A [facility] PLAN [facility] [id number] SP [id number] Medicare Dme Medigap Part B [id number] Self 0 [id number] [facility] Comm Dual Plan Commercial [id number] Self [id number] Medicaid Medicaid [id number] Self [id number] Medicare Medicare Primary [id number] Self 05 [id number] Medicare Dme Medigap Part B [id number] Self 0 [id number] Medicare Medigap Part B [id number] Self [id number] Medicaid Medicaid [id number] Self [id number] [facility] Comm Dual Plan Commercial [id number] Self [id number] ANSI-Not a Secondary Insurance [id number] ANSI-Medicaid [id number] ANSI-Medicare Part B [id number] Medicare Dme Medigap Part B [id number] Self 0 [id number] Medicare Medigap Part B [id number] Self [id number] Medicaid Medicaid [id number] Self [id number] [facility] Dual Plan Commercial [id number] Self [id number] Medicare Dme Medigap Part B [id number] Self 0 [id number] Medicaid Medicaid [id number] Self [id number] Medicare Medicare Primary [id number] Self 05 [id number] ANSI-Medicare Part B [id number] ANSI-Medicaid [id number] Medicare Dme Medigap Part B [id number] Self 0 [id number] Medicaid Medicaid [id number] Self [id number] Medicare Medicare Primary [id number] Self 05 [id number] Medicare Dme Medigap Part B [id number] Self 0 [id number] Medicaid Medicaid [id number] Self [id number] Medicare Medicare Primary [id number] Self 05 [id number] Medicare Dme Medigap Part B [id number] Self 0 [id number] Medicaid Medicaid [id number] Self [id number] Medicare Medicare Primary [id number] Self 05 [id number] MEDICARE C [id number] S [id number] A Medicaid [place] Medigap Part B [id number] Self [id number] Medicare Dme Supplies Medigap Part B [id number] Self [id number] [place] Primary [id number] Self [id number] [facility] C [id number] S [id number] MEDICAID [id number] SP 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 [id number] SP [id number] Medicaid Medicaid [id number] Self [id number] Medicare Medicare Primary [id number] Self 05 [id number] Medicaid Medicaid [id number] Self [id number] Medicare Medicare Primary [id number] Self 05 [id number] ONE CALL CARE MANAGEMENT O [id number] S [id number] MEDICAID [id number] SP [id number] MEDICAID [id number] SP [id number] [facility] W/C [id number] SP [id number] Managed Care - Community Plan [facility] P [id number] S [id number] ONE CALL CARE MANAGEMENT O [id number] S [id number] [facility] W/C [id number] SP [id number] SELF PAY UNAVAILABLE [facility] INS[facility] [id number] SP [id number] MEDICAID [id number] SP [id number] [employer] RISK MANAGEMENT P [id number] S [id number] [employer] PPO P [id number] S [id number] [employer] W/C [id number] SP [id number] [employer] W/C [id number] SP [id number] OTHER WORKERS COMPENSATION UNAVAILABLE SP UNAVAILABLE [facility] SELF INSURAN UNAVAILABLE SP UNAVAILABLE [facility] SELF INSURE UNAVAILABLE SP UNAVAILABLE [facility]) P [id number] S [id number] [facility] 00 SP 00 Medicare O [id number] S [id number] A Managed Care - Community [facility] P [id number] S [id number] [facility] O [id number] 18 [id number] [employer] W/C [id number] SP CC#[id number] Problems, Conditions, and Diagnoses Code Display Name Description Problem Type Effective Dates Data Source(s) L97.412 [id number] Ulcer of right heel and midfoot with fat layer exposed Problem 08/23/2020 12:00:00 AM EDT eCW1 ([facility]) E78.00 [id number] Pure hypercholesterolemia, unspecified Pr oblem 08/22/2020 12:00:00 AM EDT eCW1 ([facility]) E11.621 166115842 Type 2 diabetes mellitus with foot ulcer Problem 08/15/2020 12:00:00 AM EDT eCW1 ([facility]) L97.422 74799962 Ulcer of left heel and midfoot with fat l padmaja exposed Problem 08/15/2020 12:00:00 AM EDT eCW1 ([facility]) 132466763 Anemia Anemia Problem 07/21/2020 12:00:00 AM ED T MEDENT ([facility]) 06442725 Hyperlipidemia Hyperlipidemia Problem 07/21/2020 12:00: 00 AM EDT MED[facility] ([facility]) 118076259 Morbid obesity Morbid obesity Problem 07/21/2020 12:00: 00 AM EDT MED[facility] ([facility]) 867440834 Gastroesophageal reflux disease Gastroesophageal reflux disease Problem 07/21/2020 12:00:00 AM EDT [facility]) 61390566 Irritable bowel syndrome Irritable bowel syndrome Prob gerardo 07/21/2020 12:00:00 AM EDT MEDENT ([facility]) 07916712 Essential hypertension Essential hypertension Problem 07/21/2020 12:00:00 AM EDT MEDENT ([facility]) 81702692 Diabetes mellitus Diabetes mellitus Problem 07/21/2020 12:00:00 AM EDT MEDENT ([facility]) 93804529 Depressive disorder Depressive disorder Problem 0 07/21/2020 12:00:00 AM EDT MEDENT ([facility]) 115323018 Deep venous thrombosis Deep venous thrombosis Problem 07/21/2020 12:00:00 AM EDT MED[facility] ([facility]) 852645009 Hammer toe Hammer toe Problem 06/11/2020 12:00:00 [...] EDT [facility] ([facility] I25.10 820288527 Coronary artery dise ase involving [place] coronary artery of [place] heart without angina pectoris Problem 05/25/2020 12:00:00 AM EDT eCW1 ([facility]) J30.89 202773991 Seasonal allergic rhinitis due t o other allergic trigger Problem 03/03/2020 12:00:00 AM EDT eCW1 ([facility]) J30.89 270782508 Seasonal allergic rhinitis due t o other allergic trigger Problem 03/03/2020 12:00:00 AM EDT eCW1 ([facility]) E66.01 646908947 Morbid (severe) obesity due to excess river ories Problem 01/03/2020 12:00:00 AM EST eCW1 ([facility]) Z68.41 042997627 Body mass index (BMI) 40.0-44.9, adult Pr oblem 01/03/2020 12:00:00 AM EST eCW1 ([facility]) J32.9 896552618 Recurrent sinusitis Problem 01/03/2020 12:00 :00 AM EST eCW1 ([facility]) Z68.41 458034320 Body mass index (BMI) 40.0-44.9, adult Pr oblem 01/03/2020 12:00:00 AM EST eCW1 ([facility]) J32.9 963551107 Recurrent sinusitis Problem 01/03/2020 12:00 :00 AM EST eCW1 ([facility]) E66.01 424844138 Morbid (severe) obesity due to excess river ories Problem 01/03/2020 12:00:00 AM EST eCW1 ([facility]) N39.46 Mixed incontinence Mixed incontinence urge and stress Problem 12/16/2019 12:00:00 AM EST eCW1 ([facility]) N39.46 Mixed incontinence Mixed incontinence urge and stress Problem 12/16/2019 12:00:00 AM EST eCW1 ([facility]) 66935295 Rheumatoid arthritis Rheumatoid Arthritis Problem 11/01/2019 12:00:00 AM EST AKIRA ([facility]) 250763699 Gastroesophageal reflux disease Gastroesophageal Reflux Disease Problem 11/01/2019 12:00:00 AM EST AKIRA ([facility]) 617050730 Lymphedema Lymphedema Problem 11/01/2019 12:00:00 AM DANA CHAMPION ([facility]) 28207900 Essential hypertension Essential Hypertension Problem 11/01/2019 12:00:00 AM EST AKIRA ([facility]) 758318222 Morbid obesity Morbid Obesity Problem 11/01/2019 12:00: 00 AM EST AKIRA ([facility]) 79643476 Hyperlipidemia Hyperlipidemia Problem 11/01/2019 12:00: 00 AM EST AKIRA ([facility]) 24405655 Diabetes mellitus Diabetes Mellitus Problem 11/01/2019 12:00:00 AM EST AKIRA ([facility]) 67820298 Rheumatoid arthritis Rheumatoid Arthritis Problem 11/01/2019 12:00:00 AM EST AKIRA ([facility]) 479976705 Gastroesophageal reflux disease Gastroesophageal Reflux Disease Problem 11/01/2019 12:00:00 AM EST AKIRA ([facility] 608810299 Lymphedema Lymphedema Problem 11/01/2019 12:00:00 AM ES T AKIRA ([facility]) 31001794 Essential hypertension Essential Hypertension Problem 11/01/2019 12:00:00 AM EST AKIRA ([facility]) 052809603 Morbid obesity Morbid Obesity Problem 11/01/2019 12:00: 00 AM EST AKIRA ([facility]) 46721392 Hyperlipidemia Hyperlipidemia Problem 11/01/2019 12:00: 00 AM EST AKIRA ([facility]) 05575434 Diabetes mellitus Diabetes Mellitus Problem 11/01/2019 12:00:00 AM EST AKIRA ([facility]) 86775162 Rheumatoid arthritis Rheumatoid Arthritis Problem 11/01/2019 12:00:00 AM EST AKIRA ([facility]) 646206319 Gastroesophageal reflux disease Gastroesophageal Reflux Disease Problem 11/01/2019 12:00:00 AM EST AKIRA ([facility]) 579773563 Lymphedema Lymphedema Problem 11/01/2019 12:00:00 AM ES T AKIRA ([facility]) 34655209 Essential hypertension Essential Hypertension Problem 11/01/2019 12:00:00 AM EST AKIRA ([facility]) 208532960 Morbid obesity Morbid Obesity Problem 11/01/2019 12:00: 00 AM EST AKIRA ([facility]) 21237459 Hyperlipidemia Hyperlipidemia Problem 11/01/2019 12:00: 00 AM EST AKIRA ([facility]) 52723621 Diabetes mellitus Diabetes Mellitus Problem 11/01/2019 12:00:00 AM EST AKIRA ([facility]) 72485975 Rheumatoid arthritis Rheumatoid Arthritis Problem 11/01/2019 12:00:00 AM EST AKIRA ([facility]) 250114935 Gastroesophageal reflux disease Gastroesophageal Reflux Disease Problem 11/01/2019 12:00:00 AM EST AKIRA ([facility]) 179074108 Lymphedema Lymphedema Problem 11/01/2019 12:00:00 AM ES Shahid PERDUEAKIRA ([facility]) 63646933 Essential hypertension Essential Hypertension Problem 11/01/2019 12:00:00 AM EST AKIRA ([facility]) 669842192 Morbid obesity Morbid Obesity Problem 11/01/2019 12:00: 00 AM EST AKIRA ([facility]) 71838141 Hyperlipidemia Hyperlipidemia Problem 11/01/2019 12:00: 00 AM EST AKIRA ([facility]) 12565012 Diabetes mellitus Diabetes Mellitus Problem 11/01/2019 12:00:00 AM EST AKIRA ([facility]) Corns and callosities Corns and callosities Problem 10/14/2019 12:00:00 AM EST MEDENT ([facility] 284457472 Onychomycosis Onychomycosis Problem 10/14/2019 12:00:00 AM EST [facility] ([facility] K22.4 Dyskinesia of esophagus Dyskinesia of esophagus Diagno sis 09/29/2020 07:16:09 AM [facility] E11.42 Type 2 diabetes mellitus with diabetic p olyneuropathy Type 2 diabetes mellitus with diabetic polyneuropathy Diagnosis 08/08/2020 10:46:11 AM [facility] Z79.4 FCI (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 insulin FCI (cu rrent) use of insulin Diagnosis 08/08/2020 10:43:54 AM [facility] E11.65 Type 2 diabetes mellitus with hyperglyce doug Type 2 diabetes mellitus with hyperglycemia Diagnosis 08/08/2020 10:43:[address] [facility] L30.9 Dermatitis, unspecified Dermatitis, unspecified Diagno sis 11/19/2019 11:55:47 AM [facility] Z51.81 Encounter for therapeutic drug level mon itoring Encounter for therapeutic drug level monitoring Diagnosis 11/19/2019 11:55:47 AM [facility] M19.90 Unspecified osteoarthritis, unspecified site Unspecified osteoarthritis, unspecified site Diagnosis 11/19/2019 11:55:47 AM [facility] Surgeries/Procedures Procedure Description Date Indications Data Source(s) FINE NEEDLE ASPIRATION W/O IMAGING GUIDANCE 11/01/2020 12:00:00 AM EST eCW1 ([facility]) Inject/Drain Arthrocentesis Major Joint/Bursa/Ganglion Cyst 10/31/2020 12:00:00 AM EST [facility] ([facility] Inject/Drain Arthrocentesis Major Joint/Bursa/Ganglion Cyst 10/24/2020 12:00:00 AM EST [facility] ([facility]) FINE NEEDLE ASPIRATION W/O IMAGING GUIDANCE 10/18/2020 12:00:00 AM EST eCW1 ([facility]) Inject/Drain Arthrocentesis Major Joint/Bursa/Ganglion Cyst 10/16/2020 12:00:00 AM EST [facility] ([facility] FINE NEEDLE ASPIRATION W/O IMAGING GUIDANCE 10/04/2020 12:00:00 AM EST eCW1 ([facility]) FINE NEEDLE ASPIRATION W/O IMAGING GUIDANCE 09/27/2020 12:00:00 AM EST eCW1 ([facility]) FINE NEEDLE ASPIRATION W/O IMAGING GUIDANCE 09/18/2020 12:00:00 AM EST eCW1 ([facility]) FINE NEEDLE ASPIRATION W/O IMAGING GUIDANCE 09/06/2020 12:00:00 AM EDT eCW1 ([facility]) LAPS GSTRC RSTRICTIV PX LONGITUDINAL GASTRECTOMY 08/29 12:00:00 AM EDT MEDENT ([facility]) FINE NEEDLE ASPIRATION W/O IMAGING GUIDANCE 08/23/2020 12:00:00 AM EDT eCW1 ([facility]) FINE NEEDLE ASPIRATION W/O IMAGING GUIDANCE 08/16/2020 12:00:00 AM EDT eCW1 ([facility]) DEBRIDEMENT SUBCUTANEOUS TISSUE 20 SQ CM/< 07/10/2020 12:00:00 AM EDT MEDENT ([facility] DEBRIDEMENT SUBCUTANEOUS TISSUE 20 SQ CM/< 06/29/2020 12:00:00 AM EDT [facility] ([facility] DEBRIDEMENT SUBCUTANEOUS TISSUE 20 SQ CM/< 06/21/2020 12:00:00 AM EDT [facility] ([facility] Coronary Angiography With Left Heart Catheterization 06/12/2020 12:00:00 AM EDT [facility] ([facility]) Tenotomy Toe Subcutaneous Single [...] Supervision Only 05/01/2020 12:00:00 AM EDT [facility] ([facility]) Cardiovascular Stress Test Interpretation & Report Only 05/01/2020 12:00:00 AM EDT [facility] ([facility]) Echocardiography, Tranthoracic Real-Time Image Documentation 05/01/2020 12:00:00 AM EDT [facility] ([facility]) Echocardiography, Tranthoracic Real-Time Image Documentation 05/01/2020 12:00:00 AM EDT [facility] ([facility]) RADEX ANKLE COMPLETE MINIMUM 3 VIEWS 04/21/2020 12:00: 00 AM EDT MEDENT ([facility]) RADEX FOOT COMPLETE MINIMUM 3 VIEWS 04/21/2020 12:00:0 0 AM EDT MEDENT ([facility]) RADIOLOGIC EXAM KNEE COMPLETE 4/MORE VIEWS 03/15/2020 12:00:00 AM EDT MEDENT ([facility]) Inject/Drain Arthrocentesis Major Joint/Bursa/Ganglion Cyst 03/15/2020 12:00:00 AM EDT MEDENT ([facility], ) X-Ray Knee Complete W/Obliques & Tunnel And/Or Standing View s 03/15/2020 12:00:00 AM EDT MEDENT ([facility], ) PARING/CUTTING BENIGN HYPERKERATOTIC LESION 2-4 2019 12:00:00 AM EDT [facility] ([facility] Electrocardiogram Complete 01/10/2020 12:00:00 AM EST MEDENT ([facility]) RADEX WRIST COMPLETE MINIMUM 3 VIEWS 01/10/2020 12:00: 00 AM EST MEDENT ([facility]) Office Visit, Est Pt., Level 4 PC 01/03/2020 12:00:00 AM EST eCW1 ([facility]) PARING/CUTTING BENIGN HYPERKERATOTIC LESION 2-4 2019 12:00:00 AM EST [facility] ([facility] DEBRIDEMENT NAIL ANY METHOD 6/> 12/20/2019 12:00:00 AM EST [facility] ([facility] SIMPLE CYSTOMETROGRAM 12/16/2019 12:00:00 AM EST eCW1 ([facility]) CREATININE BLOOD CREATININE WITH GFR Routine 11/19/2019 1:32 PM EST Inflammatory arthritis Encounter for methotrexate monitoring 11/19/2019 06:32:00 PM [facility] Inflammatory arthritis SEDIMENTATION RATE RBC AUTOMATED SEDIMENTATION RATE, AUTOMATED Routine 11/19/2019 1:32 PM EST Inflammatory arthritis 11/19/2019 06:32:00 PM EST Inflammatory a [facility] Inflammatory arthritis BLOOD COUNT COMPLETE AUTO&AUTO DIFRNTL WBC COUNT CBC AND DIFFER ENTIAL Routine 11/19/2019 1:32 PM EST Inflammatory arthritis Encounter for methotrexate monitoring 11/19/2019 06:32:00 PM EST [facility] Inflammatory arthritis COMPLEMENT ANTIGEN EACH COMPONENT C3 COMPLEMENT Routine 11/19/2019 1:32 PM EST Inflammatory arthritis 11/19/2019 06:32:00 PM EST Inflammatory a [facility] Inflammatory arthritis COMPLEMENT ANTIGEN EACH COMPONENT C4 COMPLEMENT Routine 11/19/2019 1:32 PM EST Inflammatory arthritis 11/19/2019 06:32:00 PM EST Inflammatory a [facility] Inflammatory arthritis ANTINUCLEAR ANTIBODIES BRIAN BRIAN Routine 11/19/2019 1 :32 PM EST Inflammatory arthritis 11/19/2019 06:32:00 PM EST Inflammatory a [facility] Inflammatory arthritis HEPATIC FUNCTION PANEL HEPATIC FUNCTION PANEL A Routine 11/19/2019 1:32 PM EST Inflammatory arthritis Encounter for methotrexate monitoring 11/19/2019 06:32:00 PM EST [facility] Inflammatory arthritis XR, chest, 2 view 11/01/2019 12:00:00 AM EST AKIRA ([facility]) XR, chest, 2 view 11/01/2019 12:00:00 AM EST AKIRA ([facility]) XR, chest, 2 view 11/01/2019 12:00:00 AM EST AKIRA ([facility]) XR, chest, 2 view 11/01/2019 12:00:00 AM EST AKIRA ([facility]) PARING/CUTTING BENIGN HYPERKERATOTIC LESION 1 10/11/20 19 12:00:00 AM EST MEDENT ([facility] DEBRIDEMENT NAIL ANY METHOD 6/> 10/11/2019 12:00:00 AM EST MEDENT ([facility] Results ID Date Data Source [id number] 11/14/2020 11:29:59 AM EST [facility] Name Value Range Interpretation Code Description Data Iman rce(s) Supporting Document(s) Progress Note [facility] [id number] lbm [file] [id number]= ID Date Data Source [id number] 11/08/2020 01:30:00 PM EST [facility] Name Value Range Interpretation Code Description Data Iman rce(s) Supporting Document(s) SARS coronavirus 2 RNA [facility] This lab was ordered by [facility] and reported by [facility]. ID Date Data Source Ultrasound : Leg, right 10/03/2020 12:00:00 AM EST eCW1 ([facility]) Name Value Range Interpretation Code Description Data Iman rce(s) Supporting Document(s) Ultrasound : Leg, right eCW1 ( [facility]) ID Date Data Source [id number] 09/29/2020 09:06:[address] [facility] Name Value Range Interpretation Code Description Data Iman rce(s) Supporting Document(s) Progress Note [facility] [id number] lbm [file] [facility]+Fa+lbL+Fkzim+pzxj6Pftq1uedjpBv8Ux3+K3 [file] [id number]= ID Date Data Source PT-INR Fingerstick 09/11/2020 03:17:01 AM EST W1 ([facility]) Name Value Range Interpretation Code Description Data Iman rce(s) Supporting Document(s) 5MG on Sundays Current Dose 1 eCW1 ([facility]) 4.1 (September 08, 2020) INR eCW1 ([facility]) 7.5MG the ROW Current Dose 2 eCW1 ([facility]) Yes-RADHA Gaines Verified Patient' s Name and eCW1 ([facility]) Blood Draw Internal QC Acceptable (Y /N) eCW1 ([facility]) 5MG Tabs Tab Strength eCW1 ([facility]) - Recent Bleeding eCW1 ([facility]) DVT Indication for Anticoagulation eCW1 ([facility]) She took none on September 08 New Dose 1 eCW1 ([facility]) 5 mg daily New Dose 2 eCW1 ([facility]) 2-3 Therapeutic Range eCW1 ([facility]) Education Given (Date / Initia ls) eCW1 ([facility]) FR - eCW1 ([facility]) Weekly Total eCW1 ([facility]) 09/13 Next PT-INR eCW1 ([facility]) ID Date Data Source [id number] 09/08/2020 10:16:00 AM EDT MEDENT ([facility]) Name Value Range Interpretation Code Description Data Iman rce(s) Supporting Document(s) Venipuncture Laboratory test result MEDE NT ([facility]) pt did not fast ID Date Data Source [id number] 09/08/2020 10:16:00 AM EDT MEDENT ([facility]) Name Value Range Interpretation Code Description Data Iman rce(s) Supporting Document(s) INR in Platelet poor plasma by Coagulation assay 4.1 Record coming over is a correction and thus replaces a final [facility] Results Confirmed by Repeat Analysis. called to [employer] and transmitted 120 josué 09/08/2020 * INR Interpretation : . Recommended Theraputic Range: 2.0 - 3.0 . For treatment/prophylaxis . of venous thrombosis, . prevention of embolism. . . Prothrombin time (PT) 44.6 Sec 10.6-13.0 Above high normal MEDENT ([facility]) ID Date Data Source [id number] 09/08/2020 10:16:00 AM EDT MEDENT ([facility]) Name Value Range Interpretation Code Description Data Iman rce(s) Supporting Document(s) Magnesium [Mass/volume] in Serum or Plasma 1.8 mg/dL 1.7-2.4 MEDENT ([facility]) pt did not fast Phosphate [Moles/volume] in Serum or Plasma 3.3 mg/dL 2.7-4.5 MEDENT ([facility]) 04/17/2020-According to [employer] Blood sa mples from some patients with monoclonal gammopathies may produce falsely elevated phosphorous results with this assay. ID Date Data Source [id number] 09/08/2020 10:16:00 AM EDT MEDENT ([facility]) Name Value Range Interpretation Code Description Data Iman rce(s) Supporting Document(s) Urea nitrogen [Moles/volume] in Serum or Plasma 10 mg/dL 6-20 MEDENT ([facility]) Glucose [Mass/volume] in Serum or Plasma 205 mg/dL 74-106 Above high normal MEDENT ([facility]) [place] [employer] (ADA) Recommended Range is 65-99 mg/dL Creatinine [Mass/volume] in Serum or Plasma 0.8 mg/dL 0.5-1.3 MEDENT ([facility]) Sodium [Moles/volume] in Serum or Plasma 134 mmol/L 136-145 Below low normal MEDENT ([facility]) Potassium [Moles/volume] in Serum or Plasma 5.2 mmol/L 3.5-5.3 MEDENT ([facility]) Chloride [Moles/volume] in Serum or Plasma 99 mmol/L 98-107 MEDENT ([facility]) Carbon dioxide, total [Moles/volume] in Serum or Plasma 26 meq/L 20 -31 MEDENT ([facility]) Anion Gap 9 mmol/L 7-16 [facility] ([facility]) eGFR-Aa female 92 mL/m/1.73m MEDENT ([facility]) <content>Normal Kidney Function or Mild Disease GFR >59 mL/min/1.73m2</content>
<content>Chronic Kidney Disease GFR 15-59 mL/min/1.73m2</content>
<content>Renal Failure GFR <15 mL/min/1.73m2</content>
<content></content> eGFR-female 76 mL/m/1.73m MEDENT ([facility]) Calcium [Mass/volume] in Serum or Plasma 9.7 mg/dL 8.9-10.5 MEDENT ([facility]) ID Date Data Source [id number] 09/08/2020 10:16:00 AM EDT [facility] ([facility]) Name Value Range Interpretation Code Description Data Iman rce(s) Supporting Document(s) WBC. 9.63 x10E3/uL 4.2-12.0 [facility] ([facility]) Erythrocytes [#/volume] in Blood by Automated count 4.75 x10E6/uL 3.9 -5.4 MEDENT ([facility]) Hemoglobin [Mass/volume] in Blood 13.5 g/dL 12.0-16.0 MEDENT ([facility]) MCV 89.2 fL 80-98 [facility] ([facility]) MCH 28.5 pg 27-33 [facility] ([facility]) Hematocrit [Volume Fraction] of Blood by Automated count 42.3 % 3 6-47 MEDENT ([facility]) Platelets [#/volume] in Blood by Automated count 357 x10E3/uL 135-420 MEDENT ([facility]) RDW 14.5 % 11.2-15.2 [facility] ([facility]) MCHC 31.9 g/dL 32-36 Below low normal [facility] ([facility]) %Travis 3.0 % 2.0-13.0 [facility] ([facility]) % Elicia 62.3 % 41.0-80.0 [facility] ([facility]) MPV 7.9 fL 7.0-12.3 [facility] ([facility]) %Lym 32.5 % 10.0-45.2 [facility] ([facility]) %Eos 1.3 % 0.0-8.0 [facility] ([facility]) %Baso 0.9 % 0.0-3.0 [facility] ([facility]) Neut 6.0 x10E3/uL 2.0-8.1 [facility]) Travis 0.3 x10E3/uL 0.0-1.0 [facility]) Lymp 3.1 x10E3/uL 0.6-3.1 [facility]) Eos 0.1 x10E3/uL 0.0-0.6 [facility] ([facility]) Baso 0.1 x10E3/uL 0.0-0.2 [facility]) ID Date Data Source [id number] 09/01/2020 09:44:02 AM EDT [facility] Name Value Range Interpretation Code Description Data Iman rce(s) Supporting Document(s) POC GLUCOSE 108 mg/dL (70-99) H [facility] NOTIFIED NURSEPERFORMED BY CLINICAL S TAFF ID Date Data Source [id number] 09/01/2020 06:33:23 AM EDT [facility] Name Value Range Interpretation Code Description Data Iman rce(s) Supporting Document(s) POC GLUCOSE 112 mg/dL (70-99) H [facility] NOTIFIED NURSEPERFORMED BY CLINICAL S TAFF ID Date Data Source [id number] 09/01/2020 05:01:51 AM EDT [facility] Name Value Range Interpretation Code Description Data Iman rce(s) Supporting Document(s) POC GLUCOSE 87 mg/dL (70-99) [facility] PERFORMED BY CLINICAL STAFF ID Date Data Source [id number] 09/01/2020 03:48:09 AM EDT [facility] Name Value Range Interpretation Code Description Data Iman rce(s) Supporting Document(s) POC GLUCOSE 104 mg/dL (70-99) H [facility] NOTIFIED NURSEPERFORMED BY CLINICAL S TAFF ID Date Data Source [id number] 09/01/2020 02:34:20 AM EDT [facility] Name Value Range Interpretation Code Description Data Iman rce(s) Supporting Document(s) POC GLUCOSE 114 mg/dL (70-99) H [facility] PERFORMED BY CLINICAL STAFF ID Date Data Source [id number] 09/01/2020 02:28:44 AM EDT [facility] Name Value Range Interpretation Code Description Data Iman rce(s) Supporting Document(s) POC GLUCOSE 63 mg/dL (70-99) L [facility] NOTIFIED NURSEPERFORMED BY CLINICAL S TAFF ID Date Data Source [id number] 08/31/2020 10:25:04 PM EDT [facility] Name Value Range Interpretation Code Description Data Iman rce(s) Supporting Document(s) POC GLUCOSE 86 mg/dL (70-99) [facility] PERFORMED BY CLINICAL STAFF ID Date Data Source [id number] 08/31/2020 05:46:24 PM EDT [facility] Name Value Range Interpretation Code Description Data Iman rce(s) Supporting Document(s) POC GLUCOSE 85 mg/dL (70-99) [facility] PERFORMED BY CLINICAL STAFF ID Date Data Source [id number] 08/31/2020 04:26:36 PM EDT [facility] Name Value Range Interpretation Code Description Data Iman rce(s) Supporting Document(s) POC GLUCOSE 98 mg/dL (70-99) [facility] NOTIFIED NURSEPERFORMED BY CLINICAL S TAFF ID Date Data Source [id number] 08/31/2020 03:14:51 PM EDT [facility] Name Value Range Interpretation Code Description Data Iman rce(s) Supporting Document(s) POC GLUCOSE 86 mg/dL (70-99) [facility] PERFORMED BY CLINICAL STAFF ID Date Data Source [id number] 08/31/2020 01:42:58 PM EDT [facility] Name Value Range Interpretation Code Description Data Iman rce(s) Supporting Document(s) POC GLUCOSE 117 mg/dL (70-99) H [facility] PERFORMED BY CLINICAL STAFF ID Date Data Source [id number] 08/31/2020 12:29:25 PM EDT [facility] Name Value Range Interpretation Code Description Data Iman rce(s) Supporting Document(s) POC GLUCOSE 127 mg/dL (70-99) H [facility] NOTIFIED NURSEPERFORMED BY CLINICAL S TAFF ID Date Data Source [id number] 08/31/2020 11:29:26 AM EDT [facility] Name Value Range Interpretation Code Description Data Iman rce(s) Supporting Document(s) POC GLUCOSE 155 mg/dL (70-99) H [facility] PERFORMED BY CLINICAL STAFF ID Date Data Source [id number] 08/31/2020 09:46:06 AM EDT [facility] Name Value Range Interpretation Code Description Data Iman rce(s) Supporting Document(s) POC GLUCOSE 100 mg/dL (70-99) H [facility] NOTIFIED NURSEPERFORMED BY CLINICAL S ELMO ID Date Data Source [id number] 08/31/2020 07:21:33 AM EDT [facility] Name Value Range Interpretation Code Description Data Iman rce(s) Supporting Document(s) SODIUM 143 mmol/L (136-145) [facility] POTASSIUM 3.7 mmol/L (3.6-5.2) [facility] CHLORIDE 110 mmol/L (100-108) H [facility] CO2 27 mmol/L (22-31) [facility] ANION GAP 6 mmol/L (7-16) L [facility] UREA NITROGEN 9 mg/dL (7-24) [facility] CREATININE 0.68 mg/dL (0.60-1.00) [facility] BUN/CREAT RATIO 13.2 RATIO (10.0-20.0) [facility] GLUCOSE 80 mg/dL (70-99) [facility] CALCIUM 8.0 mg/dL (8.4-10.2) L [facility] GFR >60 ml/min/1.73m2 (>59) [facility] GFR ( AMER) >60 ml/min/1.73m2 (>59) [facility] GFR INTERPRETATION [facility] --NORMAL KIDNEY FUNCTION OR MILD DISEASE - GFR >OR= 60CHRONIC KIDNEY DISEASE - GFR 15 - 59RENAL FAILURE - GFR <15 Est. GFR calculation based on the MDRDstudy equation, which assumes a steadystate for creatinine. Est. GFR should notbe used for medication dosing. ID Date Data Source [id number] 08/31/2020 06:53:04 AM EDT [facility] Name Value Range Interpretation Code Description Data Iman rce(s) Supporting Document(s) WBC 6.7 10*3/uL (4.1-11.0) [facility] [place] RBC 3.65 10*6/uL (4.00-5.40) L [facility] HGB 10.3 g/dL (12.0-16.0) L [facility] HCT 31.8 % (36.0-47.0) L [facility] MCV 87.0 fL (80.0-95.0) [facility] MCH 28.2 pg (27.0-32.0) [facility] MCHC 32.4 g/dL (32.0-36.0) [facility] RDW 14.9 % (10.5-14.5) H [facility] PLT 266 10*3/uL (150-450) [facility] MPV 8.0 fL (7.1-10.7) [facility] ID Date Data Source [id number] 08/31/2020 05:49:09 AM EDT [facility] Name Value Range Interpretation Code Description Data Iman rce(s) Supporting Document(s) POC GLUCOSE 78 mg/dL (70-99) [facility] NOTIFIED NURSEPERFORMED BY CLINICAL S TAFF ID Date Data Source [id number] 08/31/2020 01:46:09 AM EDT [facility] Name Value Range Interpretation Code Description Data Iman rce(s) Supporting Document(s) POC GLUCOSE 84 mg/dL (70-99) [facility] NOTIFIED NURSEPERFORMED BY CLINICAL S TAFF ID Date Data Source [id number] 08/31/2020 12:26:14 AM EDT [facility] Name Value Range Interpretation Code Description Data Iman rce(s) Supporting Document(s) POC GLUCOSE 98 mg/dL (70-99) [facility] NOTIFIED NURSEPERFORMED BY CLINICAL S TAFF ID Date Data Source [id number] 08/30/2020 11:29:24 PM EDT [facility] Name Value Range Interpretation Code Description Data Iman rce(s) Supporting Document(s) POC GLUCOSE 101 mg/dL (70-99) H [facility] PERFORMED BY CLINICAL STAFF ID Date Data Source [id number] 08/30/2020 10:30:18 PM EDT [facility] Name Value Range Interpretation Code Description Data Iman rce(s) Supporting Document(s) POC GLUCOSE 94 mg/dL (70-99) [facility] NOTIFIED NURSEPERFORMED BY CLINICAL S TAFF ID Date Data Source [id number] 08/30/2020 10:11:15 PM EDT [facility] Name Value Range Interpretation Code Description Data Iman rce(s) Supporting Document(s) POC GLUCOSE 63 mg/dL (70-99) L [facility] NOTIFIED NURSEPERFORMED BY CLINICAL S TAFF ID Date Data Source [id number] 08/30/2020 09:48:14 PM EDT [facility] Name Value Range Interpretation Code Description Data Iman rce(s) Supporting Document(s) POC GLUCOSE 50 mg/dL (70-99) L [facility] NOTIFIED NURSEPERFORMED BY CLINICAL S TAFF ID Date Data Source [id number] 08/30/2020 05:50:06 PM EDT [facility] Name Value Range Interpretation Code Description Data Iman rce(s) Supporting Document(s) POC GLUCOSE 174 mg/dL (70-99) H [facility] PERFORMED BY CLINICAL STAFF ID Date Data Source [id number] 08/30/2020 02:01:46 PM EDT [facility] Name Value Range Interpretation Code Description Data Iman rce(s) Supporting Document(s) POC GLUCOSE 122 mg/dL (70-99) H [facility] PERFORMED BY CLINICAL STAFF ID Date Data Source [id number] 08/30/2020 12:17:41 PM EDT [facility] Name Value Range Interpretation Code Description Data Iman rce(s) Supporting Document(s) POC GLUCOSE 58 mg/dL (70-99) L [facility] PERFORMED BY CLINICAL STAFF ID Date Data Source [id number] 08/30/2020 10:17:52 AM EDT [facility] Name Value Range Interpretation Code Description Data Iman rce(s) Supporting Document(s) POC GLUCOSE 60 mg/dL (70-99) L [facility] PERFORMED BY CLINICAL STAFF ID Date Data Source [id number] 08/30/2020 08:31:43 AM EDT [facility] Name Value Range Interpretation Code Description Data Iman rce(s) Supporting Document(s) POC GLUCOSE 91 mg/dL (70-99) [facility] PERFORMED BY CLINICAL STAFF ID Date Data Source [id number] 08/30/2020 07:36:25 AM EDT [facility] Name Value Range Interpretation Code Description Data Iman rce(s) Supporting Document(s) POC GLUCOSE 64 mg/dL (70-99) L [facility] NOTIFIED NURSEPERFORMED BY CLINICAL S TAFF ID Date Data Source [id number] 08/30/2020 07:58:30 AM EDT [facility] Name Value Range Interpretation Code Description Data Iman rce(s) Supporting Document(s) SODIUM 143 mmol/L (136-145) [facility] POTASSIUM 3.9 mmol/L (3.6-5.2) [facility] CHLORIDE 110 mmol/L (100-108) H [facility] CO2 27 mmol/L (22-31) [facility] ANION GAP 6 mmol/L (7-16) L [facility] UREA NITROGEN 13 mg/dL (7-24) [facility] CREATININE 0.75 mg/dL (0.60-1.00) [facility] BUN/CREAT RATIO 17.3 RATIO (10.0-20.0) [facility] GLUCOSE 65 mg/dL (70-99) L [facility] CALCIUM 9.1 mg/dL (8.4-10.2) [facility] GFR >60 ml/min/1.73m2 (>59) [facility] GFR ( AMER) >60 ml/min/1.73m2 (>59) [facility] GFR INTERPRETATION [facility] --NORMAL KIDNEY FUNCTION OR MILD DISEASE - GFR >OR= 60CHRONIC KIDNEY DISEASE - GFR 15 - 59RENAL FAILURE - GFR <15 Est. GFR calculation based on the MDRDstudy equation, which assumes a steadystate for creatinine. Est. GFR should notbe used for medication dosing. ID Date Data Source [id number] 08/30/2020 07:58:30 AM EDT [facility] Name Value Range Interpretation Code Description Data Iman rce(s) Supporting Document(s) MAGNESIUM 2.2 mg/dL (1.7-2.4) [facility] ID Date Data Source [id number] 08/30/2020 07:35:59 AM EDT [facility] Name Value Range Interpretation Code Description Data Iman rce(s) Supporting Document(s) WBC 10.8 10*3/uL (4.1-11.0) [facility] RBC 3.99 10*6/uL (4.00-5.40) L [facility] HGB 11.5 g/dL (12.0-16.0) L [facility] HCT 34.3 % (36.0-47.0) L [facility] MCV 85.8 fL (80.0-95.0) [facility] MCH 28.7 pg (27.0-32.0) [facility] MCHC 33.5 g/dL (32.0-36.0) [facility] RDW 15.2 % (10.5-14.5) H [facility] PLT 348 10*3/uL (150-450) [facility] MPV 8.2 fL (7.1-10.7) [facility] ID Date Data Source [id number] 08/30/2020 06:40:27 AM EDT [facility] Name Value Range Interpretation Code Description Data Iman rce(s) Supporting Document(s) POC GLUCOSE 74 mg/dL (70-99) [facility] PERFORMED BY CLINICAL STAFF ID Date Data Source [id number] 08/30/2020 06:28:55 AM EDT [facility] Name Value Range Interpretation Code Description Data Iman rce(s) Supporting Document(s) POC GLUCOSE 65 mg/dL (70-99) L [facility] PERFORMED BY CLINICAL STAFF ID Date Data Source [id number] 08/30/2020 02:20:44 AM EDT [facility] Name Value Range Interpretation Code Description Data Iman rce(s) Supporting Document(s) POC GLUCOSE 83 mg/dL (70-99) [facility] NOTIFIED NURSEPERFORMED BY CLINICAL S TAFF ID Date Data Source [id number] 08/29/2020 10:35:14 PM EDT [facility] Name Value Range Interpretation Code Description Data Iman rce(s) Supporting Document(s) POC GLUCOSE 117 mg/dL (70-99) H [facility] PERFORMED BY CLINICAL STAFF ID Date Data Source [id number] 08/29/2020 06:15:10 PM EDT [facility] Name Value Range Interpretation Code Description Data Iman rce(s) Supporting Document(s) POC GLUCOSE 142 mg/dL (70-99) H [facility] PERFORMED BY CLINICAL STAFF ID Date Data Source [id number] 08/29/2020 05:05:50 PM EDT [facility] Name Value Range Interpretation Code Description Data Iman rce(s) Supporting Document(s) POC GLUCOSE 129 mg/dL (70-99) H [facility] PERFORMED BY CLINICAL STAFF ID Date Data Source [id number] 08/29/2020 04:03:52 PM EDT [facility] Name Value Range Interpretation Code Description Data Iman rce(s) Supporting Document(s) POC GLUCOSE 146 mg/dL (70-99) H [facility] PERFORMED BY CLINICAL STAFF ID Date Data Source [id number] 08/29/2020 02:57:12 PM EDT [facility] Name Value Range Interpretation Code Description Data Iman rce(s) Supporting Document(s) POC GLUCOSE 178 mg/dL (70-99) H [facility] NOTIFIED NURSEPERFORMED BY CLINICAL S TAFF ID Date Data Source [id number] 08/29/2020 02:30:46 PM EDT [facility] Name Value Range Interpretation Code Description Data Iman rce(s) Supporting Document(s) POC GLUCOSE 222 mg/dL (70-99) H [facility] PERFORMED BY CLINICAL STAFF ID Date Data Source [id number] 08/29/2020 12:35:31 PM EDT [facility] Name Value Range Interpretation Code Description Data Iman rce(s) Supporting Document(s) POC GLUCOSE 209 mg/dL (70-99) H [facility] PERFORMED BY CLINICAL STAFF ID Date Data Source [id number] 08/29/2020 04:50:00 PM EDT [facility] [place], [place] [address]UWHIYJY NAME: EMILIO LEVINEDATE OF : 1970REPORT: OPERATIONPATIENT NUMBER: [id number] STATUS: IPMEDICAL RECORD NUMBER: [id number] OF ADMISSION: 08/29/2020DATE OF DISCHARGE:ROOM: 11DATE OF [...] the antrum and we utilized the 60-mm [employer] stapler first with one gold load followed [...] periumbilical incision at the fascial level with okzmtuq-fi-rgcau suture of 0 Vicryl on UR5 needle and tying the previouslyplaced stay sutures to one another. Once that had been completed, weclosed all the trocar sites at skin level with buried interrupted shortrunning segments of Monocryl. We applied all the appropriate dressings andtook the patient to the recovery room in stable condition.DICTATED BY: Delio Gallardo, MDDictated: 08/29/2020 12:15DT: 08/29/2020 12:20Job #: [id number]: [facility] computer generated reports are not confirmed orauthenticated unless they are signed by the providerElectronically Authenticated by:DELIO GALLARDO MD On 08/29/2020 04:50 PM EDT Name Value Range Interpretation Code Description Data Iman rce(s) Supporting Document(s) ID Date Data Source [id number] 08/31/2020 02:11:41 PM EDT [place], [place] [address]Tel# SURGICAL PATHOLOGY REPORTPatient Name:EMILIO LEVINE:1970Received:08/30/2020Accession #:[id number](s) [...] Out By Ky Almonte MD [facility] [place] [address]Technical component performed at [facility], Histopathology, [address] [place] [address], [id number].Reported at [facility], [address] [place] [address], Count includes the [facility].This report may include immunohistochemical or in-situ hybridizationresults. Testing was developed and the performance characteristicsdetermined by [facility], as required byCLIA '88. The FDA has determined that approval for specific use is notnecessary for clinical use. The quality of Hematoxylin and Eosin stainsand as applicable, for all immunohistochemical and/or special stains,including positive and negative controls, were reviewed and consideredappropriate.ICD codes: E66.01CPT4 codes: A: 69399H Name Value Range Interpretation Code Description Data Iman rce(s) Supporting Document(s) ID Date Data Source [id number] 08/29/2020 09:22:49 AM EDT [facility] Name Value Range Interpretation Code Description Data Iman rce(s) Supporting Document(s) POC GLUCOSE 221 mg/dL (70-99) H [facility] PERFORMED BY CLINICAL STAFF ID Date Data Source [id number] 08/29/2020 08:11:58 AM EDT [facility] SPEC EXP DATE 09/01/2020PATI ENT ABO/Rh A POSITIVEANTIBODY SCREEN NEGATIVETESTING SITE PERFORMED AT [address] [place] [address] Name Value Range Interpretation Code Description Data Iman rce(s) Supporting Document(s) TYPE AND SCREEN [facility] PATIENT ABO/Rh A POSITIVE ID Date Data Source [id number] 08/29/2020 07:18:19 AM EDT [facility] Name Value Range Interpretation Code Description Data Iman rce(s) Supporting Document(s) WBC 8.2 10*3/uL (4.1-11.0) [facility] [place] RBC 4.46 10*6/uL (4.00-5.40) [facility] HGB 12.9 g/dL (12.0-16.0) [facility] HCT 38.2 % (36.0-47.0) [facility] MCV 85.6 fL (80.0-95.0) [facility] MCH 29.0 pg (27.0-32.0) [facility] MCHC 33.9 g/dL (32.0-36.0) [facility] RDW 14.9 % (10.5-14.5) H [facility] PLT 355 10*3/uL (150-450) [facility] MPV 8.1 fL (7.1-10.7) [facility] ID Date Data Source [id number] 08/29/2020 06:50:47 AM EDT [facility] Name Value Range Interpretation Code Description Data Iman rce(s) Supporting Document(s) POC GLUCOSE 213 mg/dL (70-99) H [facility] PERFORMED BY CLINICAL STAFF ID Date Data Source Rapid Strep (Priyanka Strep A+ LISBET) 08/25/2020 10:57:25 AM EDT eCW1 ([facility]) Name Value Range Interpretation Code Description Data Iman rce(s) Supporting Document(s) YES Internal Controls Perform ed (Y/N) eCW1 ([facility]) NEGATIVE Rapid Strep (Priyanka Strep A+ LISBET) eCW1 ([facility]) NEGATIVE Result (Positive/Negative) eCW 1 ([facility]) ID Date Data Source [id number] 08/24/2020 12:00:00 AM EDT [facility] Name Value Range Interpretation Code Description Data Iman rce(s) Supporting Document(s) SARS coronavirus 2 RNA [Presence] in Res piratory specimen by SREEDHAR with probe detection [facility] This lab was ordered by Charis Arzola and reported by [employer]. ID Date Data Source [id number] 08/23/2020 11:12:05 AM EDT eCW1 ([facility]) Name Value Range Interpretation Code Description Data Iman rce(s) Supporting Document(s) Prothrombin time (PT) 26.6 PROTHROMBIN TI ME eCW1 ([facility]) INR in Platelet poor plasma by Coagulation assay 2.38 INR eCW1 ([facility]) ID Date Data Source Basic Metabolic Profile (BMP) 08/23/2020 11:11:57 AM EDT eCW 1 ([facility]) Name Value Range Interpretation Code Description Data Iman rce(s) Supporting Document(s) 292 GLUCOSE, FASTING eCW1 ([facility]) 13 BLOOD UREA NITROGEN eCW1 ([facility]) 0.84 CREATININE FOR GFR eCW1 ([facility]) > 60.0 GLOMERULAR FILTRATION RATE eCW 1 ([facility]) 135 SODIUM LEVEL eCW1 ([facility]) 9.1 CALCIUM LEVEL eCW1 ([facility]) 28 CARBON DIOXIDE LEVEL eCW1 ([facility]) 4.4 POTASSIUM SERUM eCW1 ([facility]) 102 CHLORIDE LEVEL eCW1 ([facility]) ID Date Data Source [id number] 08/23/2020 11:11:50 AM EDT eCW1 ([facility]) Name Value Range Interpretation Code Description Data Iman rce(s) Supporting Document(s) Hemoglobin A1c/Hemoglobin.total in Blood 9.6 HEMOGLOBIN A1c eCW1 ([facility]) HEMOGLOBIN A1c ID Date Data Source [id number] 08/09/2020 12:44:[address] [facility] DATE OF EXAM: 08/09/2020UPPER GI SERIES INDICATION: [...] stomach and duodenum were obtained. FINDINGS: Preliminary biology research assistant film of the abdomen shows a large [...] This procedure was performed by Sue Dorantes [facility] Professional interpretation performed at [facility] .End of diagnostic report for accession: [id number] Interpreted: Mayte Qiu MDTranscribed: 08/09/2020 12:39 PMSigned: 08/09/2020 12:44 PM Mayte Qiu MD [facility] # [id number] BILL # [id number] 2IRV Name Value Range Interpretation Code Description Data Iman rce(s) Supporting Document(s) ID Date Data Source [id number] 08/08/2020 11:05:[address] [facility] Name Value Range Interpretation Code Description Data Iman rce(s) Supporting Document(s) Progress Note [facility] DGQWDk3tDyVSNrWc07/EGBgiLPOmy9EzXHwtHDn2DCayBEQfR5CbGUJ7qW9jMBN4DAiXPdFmLlUaSQP4 lbm [file] rbDzba7z2yh4KXTQns0Xc77rUs0af0a4j2fD50Qq8/bjv+u+7og1tej5B3OE4tKBau2M4fwREbhKQ+MAGAÑA [file] ICAgICAgICAgICAgICAgICAgICAgICAgICAgICAgICAgICAgICAgICAgICAgICAgICAgICAgICAgICAg ICAgICAgICAgDQogICAgICAgICAgICAgICAgICAgIC AgICAgICAgICAgICAgICAgICAgICAgICAgICAgICAgICAgICAgICAgICAgICAgICAgICAgICAgICAgIC AgICAgICAgICAgICAgICAgICAgDQogICAgICAgICAgICAgICAgICAgICAgICAgICAgICAgICAgICAgIC AgICAgICAgICAgICAgICAgICAgICAgICAgICAgICAg ICAgICAgICAgICAgICAgICAgICAgICAgICAgICAgDQogICAgICAgICAgICAgICAgICAgICAgICAgICAg ICAgICAgICAgICAgICAgICAgICAgICAgICAgICAgICAgICAgICAgICAgICAgICAgICAgICAgICAgICAg ICAgICAgICAgICAgDQogICAgICAgICAgICAgICAgIC AgICAgICAgICAgICAgICAgICAgICAgICAgICAgICAgICAgICAgICAgICAgICAgICAgICAgICAgICAgIC AgICAgICAgICAgICAgICAgICAgICAgDQogICAgICAgICAgICAgICAgICAgICAgICAgICAgICAgICAgIC AgICAgICAgICAgICAgICAgICAgICAgICAgICAgICAg ICAgICAgICAgICAgICAgICAgICAgICAgICAgICAgICAgDQogICAgICAgICAgICAgICAgICAgICAgICAg ICAgICAgICAgICAgICAgICAgICAgICAgICAgICAgICAgICAgICAgICAgICAgICAgICAgICAgICAgICAg ICAgICAgICAgICAgICAgDQogICAgICAgICAgICAgIC AgICAgICAgICAgICAgICAgICAgICAgICAgICAgICAgICAgICAgICAgICAgICAgICAgICAgICAgICAgIC AgICAgICAgICAgICAgICAgICAgICAgICAgDQogICAgICAgICAgICAgICAgICAgICAgICAgICAgICAgIC AgICAgICAgICAgICAgICAgICAgICAgICAgICAgICAg ICAgICAgICAgICAgICAgICAgICAgICAgICAgICAgICAgICAgDQogICAgICAgICAgICAgICAgICAgICAg ICAgICAgICAgICAgICAgICAgICAgICAgICAgICAgICAgICAgICAgICAgICAgICAgICAgICAgICAgICAg ZASeDSArYXCtSQQeILIsMEJnRKy2R1wmVACuUKEyTK 2gNSi4Pq0+LWxACdIkIQD4fePwqX7ELM2au7EiGZvuHQXer3EiYJx9DC7ECHOmCYwbQL5PZRukhb5SVG JtWQLdqRAGd6bwJiTrGKG2FZBjJpptHK3KDBKxO3nowsWcOEQvJTHIVKjsKCRZZCpaGVWXADFpELSwSp DbKiJnCFMhVQWuLWMPXEA8QIZaQgYyIJYeEHKeMP7H NEZlL591zeFoUC7WGg1EHfUkAN3owm8TGlBcOODcFkeFCvy3HNtrJN6NtSFhiEWvRgJcPJZXBkIjC9mx q5SgSotoIIFKVDvlWT0Cp1FneQYwFUq+Yg3PDP0sy0LfFHeuFqCkYL4kvf3QVYzBIyJkM0NmyQpiDOYg u6atDBPhVB2ivPFjIEF3MBJdwSkvMHYYj4PrdSTmjW QieVY1RvG2FcYsMtGjMAI3YKKqTC1pYMwfPE4JLZW7XOreQQTmBFEmC4zRQwCpJKAbVtFaoIiwAI1OBm BqS2GbtiVbxQSzPqAoKHCGUs3+GOylrnByHopCNcT6IRBij4TjQTa9LO7FYQZcRBooAU1FRRKvwT6jQB jdXY6YWuCtBOCyDROTDwOnB04daNDySCv3N6LlOqSx ZGVkRmlsZXMgPDwvTmFtZXMgWyBdDQogID4+ID4+BSexXJ4KJCphfuZrDUQoVe4UBBMtAUIzWI9wUOSr JTFhY4B0xXavIGBWIpMmT5qafavuJG1kINEyN905nSszzlRgCIU2LHQkPu7YMATdIFA7PWKygCEeAxMb NAULOTblSC3OjWKfYXU9tK2iDXwsPFGpNCEaR2dWZl CawIrsMY63tKznohHdlKFpPTc+Dm6FKQ2bn5YqMIu2cfVaAVddCRA8GLarLLRqBYYmDEFuJIZ0EYK1CG KAPzDhKIGxFKVzQAtaBQIiUSCqji0RIWWpMKZbPCF3XSUqXYEwHJCcGDwnQNJvQGOlOloiWXEuPZGsYL 7DHrFqCYInGVAtENjyTWYhOBHtlm1LPCEoDAVqNyC3 BsZsJOCoRKTnDPjsIMIgUDWzIzFhRWMpPXFbOR7BLjRmUPNyXBNoDrkkTGMvHZKyyd8WKMZzWETxDvO5 EEYoILOuZPKiTNxbFQPvABG6BOTdDLQhFMOcUS8PTxGqFWVaKXqkHYmqDIHkLKBrum6JZBQbXURxQxv3 AxNcFPDcSBDvSOgjKRVnTXKeQOZ6YEKlGIRuFQ1CAg SwUAIaESO9ZRYgZZMqATYmdy1BRSNwLNVrEYo1ZxTfHLAvDMXuAMqsLWOtNFW7SMIsFNTpFOPvPK4YLm UfCEWjGDvhAIzdYMHpGKGrwi1XMIKoZQYuFSN3HCQfCGJuLEHfPVleWYNhGMYfRTT7YAIeFOUxGY2BHk JqQAVnJmVaEkkmRJWeOZNdla9NBTCvLBDvXtX6QWDa INQmHOOsKJvwZGFnBDG5WaY2WMQhPFJwEU8ENvWjAYLzFeO7HdBiRWGxRSFeas2ESFAdZHItMUGxCDTf RFMzZIXlOJhlSMVxJDN4ZPlfLKNfVJKkJG2SAmWlXDDqGyP6NnZlTKXeANTequ0DKUViYDEaUWe6KzRp QDTeOCDnTYlaTOYeMII0RkynOBWcXEYrGY3LDcAqCV KaErb5NEitRTLmPQKqik3EVCMkQXYgFrdcPlHhHGQuNOBzCYasHHTxKEO7QTi2PIGqDPRsTH2TXlYhTZ UfWulmNzYmIRMmTHSvpu4CNRElJAYnFIE8UzCnJEKeSIXuUVvnTUUoDGK5VBO5PCWbIPYoJW5ERfCdAH OiWxa4IpJhZANgQXZtyz6ZBCSiCUC4BDV1VUOcNKVb KESjLCfoHPXbPSSsGSJ8ZQWtFNRtDS6VCyUePHBnNKU5XKNlASDzKPOaxm7WGWYzUPN3WIk8FoHpPKXj WCZfJWm1gsSffPEgDSi2SM3YB4YenpJrYexGJz6Ew539QCO0AFLbGg8GN9pcQm1mHDHsBWTRXl7OGNk3 AlgiHZFaBALcI8AxVBAgKMIvVGKtAIAwEWPqXPFhIs I+USboORS2UCBsZKWfYnJeDuN4ZMPcWIKkJFY8V9WkDKT5Ly6lWXZEMv2+DQpzdGFydHhyZWYNCjQxOT m8UUxbIUWNZq4Y ID Date Data Source [id number] 07/22/2020 09:17:[address] [facility] Name Value Range Interpretation Code Description Data Iman rce(s) Supporting Document(s) Progress Note [facility] OQKUWw0bPaGBDuOy97/PPYjnCUAxd7RiYVdhYLz6NWmoEPNgF3VkVPO4tB0aXHX6BDgGKbCaIrRyOZFr lbm [file] Lpv9PcTrMPB2SrX+FW8mTIz+Hn3Lw3DcxaR7wlQxAAelRVK4Zg0MTPXRT7WBFz== ID Date Data Source [id number] 07/06/2020 10:23:[address] [facility] Name Value Range Interpretation Code Description Data Iman rce(s) Supporting Document(s) Progress Note [facility] KBDDWf1wZoNMYnJl70/PLQrvAERfe5HiPXdkNPc7XDptDRZqL9XaSWL7tP2xEOJ2EYpOFmUdPgIjJWI8 lbm [file] uiRIFt2H94DoptOepcIamELVztjN43tA/JgbSaRnmQdcOjt0Em+22KtfoAbDXDneYZ0/g5cRUFL+I/Josué [file] ICAgICAgICAgICAgICAgICAgICAgICAgICAgICAgICAgICAgICAgICAgICAgICAgICAgICAgICAgICAg ICAgICANCiAgICAgICAgICAgICAgICAgICAgICAgIC AgICAgICAgICAgICAgICAgICAgICAgICAgICAgICAgICAgICAgICAgICAgICAgICAgICAgICAgICAgIC AgICAgICAgICAgICAgICANCiAgICAgICAgICAgICAgICAgICAgICAgICAgICAgICAgICAgICAgICAgIC AgICAgICAgICAgICAgICAgICAgICAgICAgICAgICAg ICAgICAgICAgICAgICAgICAgICAgICAgICANCiAgICAgICAgICAgICAgICAgICAgICAgICAgICAgICAg ICAgICAgICAgICAgICAgICAgICAgICAgICAgICAgICAgICAgICAgICAgICAgICAgICAgICAgICAgICAg ICAgICAgICANCiAgICAgICAgICAgICAgICAgICAgIC AgICAgICAgICAgICAgICAgICAgICAgICAgICAgICAgICAgICAgICAgICAgICAgICAgICAgICAgICAgIC AgICAgICAgICAgICAgICAgICANCiAgICAgICAgICAgICAgICAgICAgICAgICAgICAgICAgICAgICAgIC AgICAgICAgICAgICAgICAgICAgICAgICAgICAgICAg ICAgICAgICAgICAgICAgICAgICAgICAgICAgICANCiAgICAgICAgICAgICAgICAgICAgICAgICAgICAg ICAgICAgICAgICAgICAgICAgICAgICAgICAgICAgICAgICAgICAgICAgICAgICAgICAgICAgICAgICAg ICAgICAgICAgICANCiAgICAgICAgICAgICAgICAgIC AgICAgICAgICAgICAgICAgICAgICAgICAgICAgICAgICAgICAgICAgICAgICAgICAgICAgICAgICAgIC AgICAgICAgICAgICAgICAgICAgICANCiAgICAgICAgICAgICAgICAgICAgICAgICAgICAgICAgICAgIC AgICAgICAgICAgICAgICAgICAgICAgICAgICAgICAg ICAgICAgICAgICAgICAgICAgICAgICAgICAgICAgICANCiAgICAgICAgICAgICAgICAgICAgICAgICAg ICAgICAgICAgICAgICAgICAgICAgICAgICAgICAgICAgICAgICAgICAgICAgICAgICAgICAgICAgICAg ICAgICAgICAgICAgICANCjw/qLIkC2hurCUpcbB3S7 gaCc0YVb7SLK4wq4FfUCXrNXdgncWjNphGXzUnFOKsNlpGFqy1VWjgEX2TrBKjH3ZoU6JeBRahKF7PWJ RvKKVijFHaMMRmYRSjTfG2RKNqYVjjZZ9KiTGxKGysKJLeJHDqVxQlFIVePPQsHXBpKYSuGZCGNQZoLW MsYiAfHZWnTBZfJEzwCGUFRVR7NXXuMrUrSHGtXIYz HuHjEAMMUX4MElZzD4GfoZ41BMUiDCz+Eu3DKG1og5GpWLi7VBEzWG4mhz6VGVtNQnZxK7ZpzdE5WOBk QXHzBi9TFCOuPHKtnDQ5PJIeAMPRHgWdD7JcrB55QXBMDd0+BLxufkGgNbhUCvUsFUZjx9JjAEq5KC6G UIHxIDb7dNYrFGBfP5Bna5XfBy18CRNpOxqzH6Ickr ifnKEQOSdsE1byjxSee6PtYGMTJSX5ACqxNzrcSiPmFFXdVAbkTYRJOAuOMkMiI6Kqs8IuKlH5FGJxXi PxIJmaNXJrJbQ6GQ00zKopOQ1HLGCjPJXsMO17VVTnIWXsWf3NVx6JLlRmUX1yrh8JPPReOUKeQzuIMa m9DEkuBU1EiFSxV0GuzSAbx6fWCbNhT5LVGQE9FTEe La1KJPMfEgOkQJEqWKbhXX4iWYVsJSTYnCyvecV0YL7RHE5aqnXxPE6EZwEwFl3tEo3KEnQaU4KmN3Le MPXjLZDGGAmpOV6FHWkdXU0mGX7Wk3NKzBOkhE6olh6GLGOpALNhNeimcf2SSozmD9W0xMgyFRBeDENc GVUVIPuxBE9GGCKcDCO8FYYcJRJjWYMHSrOoF10nWS 9WO1Aux70vJlR4WOMmBoEtKTezUD31sOfkvtRnzHLrvDpjYZ4PHf5+DQplbmRvYmoNCnhyZWYNCjAgND SEJlYmOCJbGVYaZDKsItO9QpBzTd7WCFNuHLBvHHFgDrTrLFMlKUBxZSuhZJMvLHF4PWV3JEErDJZlCL 5OKuHhZMCdZSC1YZJkIIJeJRFbkp9FDOHcQMDvCSH7 BfBxRAJiYBRmGLpwBYXhEVDyVxK7MQWqXGIhTY4FBqBbITIyVPM8TQKoGLTgQFQsce1VFJFxSXTbOhaz EyBcTRQpNCBzIGxvDVSvONQ9LTP8PIDeBWXvNL7NAyRuULJkWIz7BmlyMMQcVYDunm6IFOQsTWZcBOv8 VZRyQUIuPLPoOCsnSRSbOKBbSuHeGATxRJPfJD2JPg LyEDSbHXY0IKQpUDTqSEJszk5QAPIhAWSzKdD4ZLYyIUJiYSQbLCckNWCrFYS8MnG3ZQYrYVEoCE1YCr BgBLXkAXm6TlCoDPHhBLCdvz5ZJJIaPZGkHJV3OsLhABBtXRPuXJogEMTzCKYnOrZuGOYoXIXpVD4YSc XhXTGpGmC8HeGaMXUiBSStax2WFRWfOFNkYXHtEyDm HFKdGDEoSEqmTXZxVZH9QgV7FDRiOUYwDK3JXtEwITPnUkv6RcLhLTCbUZVwls7AYVIrHRMrGok7LOWi VTOdAGVdNWzxBMPiEJA2WGP3URGoXOSfYK2RMxUlWEUnQpc7InTjSJXbGDZhfh8DYWYlQEWmSKA1BJNw HJJhWFQmPUltRPPcOJS5VUqtIJRaNBOsSV5AIjXqNW PeJxSpAiImCTYtRVOggb7PDHKuYSNnHEOsPyPtFDCmDLOaKIuxTYZyRXGbAoM4TEWuXSNxUD9WXaMeKN EvMoP5BAOcPPPzQYNnuo1XTYHnDMR2Oni5BcCfSMNbYSRiRMxtSIViQIVbJLE9RGDiWIUeYO0DRvCjFK UtXAExAffyRGTzEHJzll5DYOYpGUO0PlUsZdYhGPPi QDLsQWqoFLXfXWJbIzxxLHMgPHPtBK9KNaGmBMVsXAG8OImuMSAtDTHwfi5XEPOpWHW1WRdwOCUcIQPf FUWqIPudFBAoUSA3TZnnEPCuSTBiZJ7SRaMkUIFwDOF8ALSlEXCyTTBxfk3WEBCkFUG8SwMlYWRbBNYl VTAkTNlfZAZsUAK9VQwbPHSxOWGdWH7SRkRaTKFjJH lgEnOhYGQvTMQvxw7CmDCllOqpbl3HNXyTYb3SeWiyKMVcERqzEs5pfXW0KkBgDQSIHo6ThkDwTZLkHI EUHSepFDRxDFdeAjBaFITfO2FrYMJ5VBPpLlKdCFMnZKK6TOG0VpSmLcJ5HBBwA8MwP5NzMXTjCpkqIJ OrGRW5HcXrKRFeMIVuXCI+FN3nNSe+Bc5Xm6XayoG5jwSuCFb5FiC4HH4WZETAL2LEJb== ID Date Data Source [id number] 06/12/2020 12:36:01 PM EDT [facility] Name Value Range Interpretation Code Description Data Iman rce(s) Supporting Document(s) POC GLUCOSE 178 mg/dL (70-99) H [facility] PERFORMED BY CLINICAL STAFF ID Date Data Source [id number] 06/12/2020 10:17:53 AM EDT [facility] Name Value Range Interpretation Code Description Data Iman rce(s) Supporting Document(s) PT 14.0 s (9.2-11.9) H [facility] PERFORMED AT [address] [facility] [id number] INR 1.36 [facility] SUGGESTED THERAPEUTIC RANGES USING INR F ORSTABILIZED ANTICOAGULATED PATIENTS:STANDARD DOSE THERAPY INR 2.0-3.0 DVT, PE, PREVENT DVT OR EMBOLISMHIGH DOSE THERAPY INR 2.5-3.5 PREVENT EMBOLISM FROM MECHANICAL HEART VALVE ID Date Data Source [id number] 2020 10:15:00 AM EDT [facility] Name Value Range Interpretation Code Description Data Iman rce(s) Supporting Document(s) Laboratory test finding (navigational concept) Laboratory test r esult Normal (applies to non-numeric results) [facility] ([facility]) A false negative result may occur if [...] pathogens. DISCLAIMER: Testing was performed using the [employer] SARS-CoV-2 test. This test was developed and its performance characteristics determined by [employer]. This test has not been FDA cleared [...] or revoked sooner. ID Date Data Source [id number] 2020 10:15:00 AM EDT [facility]) Name Value Range Interpretation Code Description Data Iman rce(s) Supporting Document(s) Coronavirus 2019 Nasopharygeal Laboratory test result [facility]) Laboratory test finding (navigational concept) Laboratory test r esult Normal (applies to non-numeric results) [facility] ([facility]) A false negative result may occur if [...] pathogens. DISCLAIMER: Testing was performed using the [employer] SARS-CoV-2 test. This test was developed and its performance characteristics determined by [employer]. This test has not been FDA cleared [...] or revoked sooner. ID Date Data Source [id number] 05/24/2020 01:02:00 PM EDT [facility] ([facility]) Name Value Range Interpretation Code Description Data Iman rce(s) Supporting Document(s) Laboratory test finding (navigational concept) Laboratory test result [facility]) Testing was performed using the [employer] SARS-CoV-2 test. This test was developed and its performance characteristics determined by [employer]. This test has not been FDA cleared [...] detected) result in this assay. Performed at: [facility] [address] [id number] Office Sweeper: Alla Mcgregor MD, Phone: [phone] Not Detected ID Date Data Source [id number] 05/24/2020 12:00:00 AM EDT [facility] Name Value Range Interpretation Code Description Data Iman rce(s) Supporting Document(s) SARS coronavirus 2 RNA [facility] This lab was ordered by [facility] and reported by [facility]. ID Date Data Source [id number] 05/02/2020 09:45:00 AM EDT [facility] ([facility]) Name Value Range Interpretation Code Description Data Iman rce(s) Supporting Document(s) Glucose, Fasting 205 mg/dL 70-100 Above high normal [facility] Blood Urea Nitrogen 13 mg/dL 7-18 Normal (applies to non-nume davis results) [facility]) Creatinine For GFR 0.73 mg/dL 0.55-1.30 Normal (applies to non -numeric results) [facility]) Glomerular Filtration Rate Laboratory test result Normal (applies to non- numeric results) [facility]) <content>Units are mL/min/1.73 m2</content>
<content></content>
<content>Chronic Kidney Disease Staging per NKF:</content>
<content></content>
<content>Stage I & II GFR >=60 Normal to Mildly Decreased</content>
<content>Stage III GFR 30- 59 Moderately Decreased</content>
<content>Stage IV GFR 15-29 Severely Decreased</content>
<content>Stage V GFR <15 Very Little GFR Left</content>
<content>ESRD GFR <15 on GEOSPATIAL INTELLIGENCE ANALYST</content>
<content></content> Sodium Level 138 meq/L 136-145 Normal (applies to non-numeric res ults) [facility]) Potassium Serum 4.6 meq/L 3.5-5.1 Normal (applies to non-numeric results) [facility]) Chloride Level 105 meq/L 98-107 Normal (applies to non-numeric r esults) [facility]) Anion Gap 5 meq/L 8-16 Below low normal [facility] ([facility]) Calcium Level 9.0 mg/dL 8.5-10.1 Normal (applies to non-numeric re sults) [facility]) Carbon Dioxide Level 28 meq/L 21-32 Normal (applies to non-num jem results) [facility] ([facility]) ID Date Data Source [id number] 05/02/2020 09:45:00 AM EDT [facility] ([facility]) Name Value Range Interpretation Code Description Data Iman rce(s) Supporting Document(s) Neutrophils % 50.9 % 36.0-66.0 Normal (applies to non-numeric re sults) [facility] ([facility]) Lymph % 39.5 % 24.0-44.0 Normal (applies to non-numeric resul ts) [facility] ([facility]) Travis % 5.5 % 0.0-5.0 Above high normal [facility] Eos % 2.9 % 0.0-3.0 Normal (applies to non-numeric resul ts) [facility] ([facility]) Baso % 0.9 % 0.0-1.0 Normal (applies to non-numeric resul ts) [facility] ([facility]) Neutrophils # 3.5 10 1.5-8.5 Normal (applies to non-numeric re sults) [facility] ([facility]) Immature Granulocyte % 0.3 % 0-3.0 Normal (applies to non-n umeric results) [facility] ([facility]) Travis # 0.4 10 0.0-0.8 Normal (applies to non-numeric resul ts) [facility] ([facility]) Lymph # 2.7 10 1.5-5.0 Normal (applies to non-numeric resul ts) [facility] ([facility]) Baso # 0.1 10 0.0-0.2 Normal (applies to non-numeric resul ts) [facility] ([facility]) Eos # 0.2 10 0.0-0.5 Normal (applies to non-numeric resul ts) [facility] ([facility]) ID Date Data Source [id number] 05/02/2020 09:45:00 AM EDT [facility] ([facility]) Name Value Range Interpretation Code Description Data Iman rce(s) Supporting Document(s) White Blood Count 6.9 10 4.0-10.0 Normal (applies to non-numeri c results) [facility] ([facility]) Red Blood Count 4.26 10 4.00-5.40 Normal (applies to non-numeric results) [facility] ([facility]) Hemoglobin 12.3 g/dL 12.0-15.5 Normal (applies to non-numeric resul ts) [facility] Hematocrit 37.5 % 36.0-47.0 Normal (applies to non-numeric resul ts) [facility]) Mean Corpuscular Hemoglobin 28.9 pg 27.0-33.0 Norm al (applies to non-numeric results) [facility] ([facility]) Mean Corpuscular HGB Conc 32.8 g/dL 32.0-36.5 Normal (applies to non-numeric results) [facility] ([facility]) Mean Corpuscular Volume 88.0 fl 80.0-96.0 Normal ( applies to non-numeric results) [facility] ([facility]) Red Cell Distribution Width 12.8 % 11.5-14.5 Norm al (applies to non-numeric results) [facility] ([facility]) Platelet Count, Automated 299 10 150-450 Normal (applies to non-numeric results) [facility] ([facility]) Nucleated Red Blood Cell % 0.0 % 0-0 Normal (applies to n on-numeric results) [facility] ([facility]) ID Date Data Source [id number] 04/20/2020 02:23:00 PM EDT [facility] ([facility] ) Name Value Range Interpretation Code Description Data Iman rce(s) Supporting Document(s) Laboratory test finding (navigational concept) Laboratory test result [facility] ([facility], ) ID Date Data Source [id number] 04/04/2020 12:00:00 AM EDT [facility] Kevin Youssef MD Patient Name: CHAD LEVINE1 [facility] Date of : 1970Suite Date of Exam: 04/04/2020KYLE Arzola [address]ON#: Fax: [phone] EXAM: MRI KNEE RIGHT WITHOUT [...] mildchondromalacia. Findings as described above.Accredited by the [employer] in MR.LUZ Baeza/[place] you for referring EMILIO LEVINE to our office. Electronically Signed - CHE BROOKE DO 04/04/20 13:24 Name Value Range Interpretation Code Description Data Iman rce(s) Supporting Document(s) ID Date Data Source [id number] 03/03/2020 01:00:[address] [facility] Name Value Range Interpretation Code Description Data Iman rce(s) Supporting Document(s) Progress Note [facility] BZUTKd5bXhKTZxEq48/DVYljKXNsn3YcHPbdVXc2HKpjCDDyG8UgVGY4jJ2qUIL7TVbSIvIzAjJvRKP4 [facility] TfGqcISiBoWQFgRzwVCvUdGNvvJdccxNQjWB9DyIA1YJYxR50aPLQkJDGsK8CnGEW0Hhx+Sb7EGBJvbL XgIH8VZheS2N0NwypVNr5wPJ+giDDEH5Brbp90nKOTpIHaOM3vddrLGk4YmmhRXLBD5LPC+vHXa2CRuj 0BsalzKSLlaZtjD8eJ4G3ruSq/y6jP8YziU7T/F7+G lGvzvwneU6l8tPxHbxMohHQ6ZOgYCwAAgQ8d7/vHz174nNStOLpk99GGgCHZxdfArPP3bj2up+n0pbru oNxK0mHwQbTaQ+1r7wagX2Eu+J9++rr6d9LcvrUgk3dm76CUbVsysoZxCb/wYMHjcGHbh52appPIarma ou3RR2R1BrEFi4IHto9+THgPsr6KTLQA7EUApEbk4n zHO9HmKbARfRIAiyh6jZxKyGXMHccdxXqrSFyXvNIRWkqjBG82n86e/uB4rfc9Mu96DN6Ci60EAr0wHi nMHzHT9GoRVHhL5zbIsW1if3EeI7d0u+XPRClnC/5ayR/17DuYg9wvEXWOcqRszNHLV5PcvulCb7L1jM CwL4oZOi8mpmF86P9Ind3rTM2fI30VO3I0mOrdvCkd q0jTlZoj01AEd0zW/VKbBG3sk2s3mJtzdHl0ToB/yPD4MAyTYptND0LKPamEvc7Lh+rqFGW0nWnMF2mq GoQUzel9bfikXkPkIeanmudzPyIqRgrEzhBGoT7zTtLOH3rrTUv0+dLhbC1qTHWJGsOCeMsnJ9iMitZZ tMpvklofSMVD7OZODk3zvE1XfrcZ92DaECRjdJf33w 1PSyMZA3N0o+elTO8BFG9aQHGKwAlnNUgxMXvy+DWWbkCnpQcEDLdOlWOQv7HGIMBWkxmak58vBOsOPj U11kno0lfBDvgFYFfvrsXvuU1/OTpLD4/KFHop4fSJKNftH9pjW61iOiwVgRc8YY3xCuIfCNaTse27Dn uo/OpTMZmXZs+MATpdNskogkiZNfxJaeggZhinn+mj [file] ElTRkcQtS3do/6g12XGRZiOQfzMUM0lc/5zCw6L8bUV/kjSu+bFqcPJDgZlf+8EFZsmv+MEGZsmv+DULCE MARIA Zsmv+OQYJvKRZ9Wx6rQiZJLLa+mPgbOBWfINP/rSETbXO3ljosnHCh3icz2r0CTXK6sOPi13nH02AthC Josué/wgw/Mkm/0lTgcnAz81UNf+REFaW0/ygYjPzSY+W [file] HdmWr7xX/278Gb91uLRou6MQoXXnj/second vp hr assessment/uMiVsUxGVwtdIaftgPC1uEBIpuKnhwn3hPfGVv+rjCmzfdR dUaQxljIAwtvrFe1GVCqxPqiG1b0/A8teZrwIYAMwJ1HmUAIpijUz4ZeQpvMYuyomcx/5f4HCIt+hBN2 7A3jYDFsLJ6QNYibl6tW/8RgJbTaNXiKWpL9KBeRNS tlU/OObc9L1E6Ox5CROFLYHlgfdCQhYq6BRLfpzECVkmwHT6Hykt99bMG8/rZTAaxpTEMsrrrm/td5Y2 2Ch8SlrQG4lxJ9CNriumg7V/FnE0H2NuVXBix7iuK2lXcr2Tn44pXeg7YJvBvTkg6Zu4Mg9QZ8JzJoPl WnlnhQDYz7ExxyDBdAMCqWnTubp0sZ39qt39Jinvgj gAv4nH14XTIziiOnVqKURSB94ezEyyoSEVugkfbvyMV8hU/bI8wkwCBI2UNFdpujMe7JFxI9K/ni/4o5 50MwmjwQUTyjJnob2KM2fl2x+V5w9QqXvYiLBtXDXiLwbndAV/5t/BqxI9ZTNjYdJmZV1u6Nb6xStlEm fJxNodOCWUpGXTtdbChPaYv/CPYAW/dwlDsiWQhVhQ USGxDUd2yEE4ghpZDAXTuWDpzKiRIiHYYl6zgGDl+tD6wu0Bt7c0WQxAI1CACqnY8Wpi9De5AMf5gjT6 ZphMoe81Y5+X50lVvuU/oF+KcnuB1Z0qFmKTZdRcaaVq6XBzfzNr5ZqxKeltgmPOCeOeZLYbhQUncERB yFKgdHKOVYGl6qt6Y+thdLS5h25m9jjyjaCkjj3jRi Icak7bfRx4bhmUBK2PSTHdGu0cCuWp6Xq1EtikSlMAVO8R8opjP4/xwwH0a26AHmMT63nGgGTYRZj7vh Qfq48vxl4wj3yYzaPoGVM8t/phPC5la/5bC38OYXEICQKhyJpBsKoNdNBE4yp4NvdPzRzHsDOqrw+ke1 JYtok8bH7kdebpDwAypGySOEWrXplDAF+7qR+n03yu Dd2c5ynPeAxIgzrcGZHg7EgPD+v6Ul/2Kg6I4AG12Jxn74t5kVb2gQTz7d0DYUdW4XWr4VudR4JmjgA0 H8dG6TOM8Qqf2Xqrc6yQjdZt8PxiCAz+Qv4Q6SA5D25qJPoXbrafCz/3sz5HBuAfZzaaO3Boy9Qr92nE IDE7zmgKBXDbXWd8x4Ny54Kvt2D/OoREm2MJfZGKpd rEFzwTR0P76vdkffqSO1NkjYRFOONohXV4rJGzX/Ky/y7+aV2ghWwF18zYVsanHDHLq+qbj3wtCSTLpk 5NeCvDMhIkrmmqWvC/HHF6M7+Lee+GFln5QkhJAHBhgLReNzvY3UckyjFZmYFGtUyGP9o/geyL8KsI8Uo [file] jr+Nielsen+gRmpS9YKSkJtj43IECHX8qAnIsUsq4ti0QOJTCzzwwZN+uWu6YrLgmalXZOntfaOTY/4AV/A2y ICqCdb2jIg9h5OGKMGUnJh00RpK/xaPqP1xtzr+Zl6 5/twH8TXFdD76bAsrMq4VswTCh+PBSy8V3gonClNi2NuqBdVdonFynLiWwEy3vDZPrEHHEkGEhcN4rTN rqC1SL73y1ebH1O5aKdizYeVitDfKOOmyC9FARWofPWLojkp9h/ufuz795uWg5CXNiGwfm6pB/yFW0lb 7aAJhjupPvs5c56vaxWzzm4giNM2cdQHl4EKzEPkIX 8NXDTJb5boaD9cOxI3NvxuR6HNdRPzvZUd+2WT5xyAGy3DRFWitz85zO7a/08COk0Js3c1xXb8MGOgt5 k1gP6Rq6KflQFAveyQ48/HqnzBxkspkAUC9/xKHt5XoHync4zFgsgWGbo6TYaMzRF/ZBo/jCzwox2wQL +nkc1onCJuXCqFoFIYpDxm/24p9gzOjHGt4ZCDL+Cn Dt0IXFyL3vitI0BDHynbjRxPbOST573o4mgD/NNPPRZwRVFJaCUkzkdon+hw3JZsBrPGIqlE1+w8r/gi vL/oo3jqp/oqX/it/VQv8Cm+7INl3gtgHGzrDp9tkKK3jgsVetOnXQGIhfvAE7iWjZuua765c03Laeb5 hGYUTOIQVL2tRNRh9m/6ORP233oz1yUmVBUEBWkqnz vL5xIOOdOL3ykzqlktJQ/+rZ/giB2C0BglaL6DkxQ8l6N9096pLclnvRLtga3+RG5/HqvEFTa/yCZ+FE Oft7VN/CCcveetnfkR+YBmFfk3BZsEw0HSBHpmNqzMjKpIIYjZMJnt7qN6wkXbOAbQEUaVjgCgELfGb8 grinder set up operator internal/lz97XjSIMypJ0dSG4TQwTEUYu1x/DMxWMrYR2/ [file] STEAM SERVICE INSPECTOR+CeFuvUlXywbx2h7z59NhnBAcLfauU5I7aidOFgqB0tZ6An2H0bRRCJ2H2obS2jVHb1VBgKDW1G9J [file] Squh2uwvko4Wj0Ya8vvsgUyDpddSdcnIDKxzmNFrYLzc5dQVc9oU5Gbu+second vp hr assessment+ZZ98cqP5MoNSKczHbxiB [file] PIZYUef/Josué+H/9UIr/VpJaAkTlYH4yAsN803gbljWys3LgAn4hMutJ+5vgQlP2FwlVXHxxLh3nfRPUWI [file] gILQmjgS0QjbP5TLq0PzWrjSUPcePYhlw8xinpSO6onmryuZz2qZxgOhuZHmtWJg0obM/Ana Laura+2qJorXp [file] +58/MfhhBXvI/cvqdO9/P3Z7BH9I+xgfMmO8Ko+Yaima HHgiRy57oynzbH76AwE+abvnf4IGRK8tQIjfYmypBl3PH27mwfGB+FZG48zhqHHOlg+O8BfacaRhq+IX 1kBDHkWROMo6PjLf+RGOA4QUZ04UQzPxQWkd68tL7nj+5yzB/nDLK8osZ7TYm6Aa4eoxmgvscxqEh/MU BP1cFb+VY2CZu2OacPPdWn41VNp5DDNM9wfyqTTMd/ aw7+/V9/9N/GJUV6yqW1TQw7Rm1erhlamdhfnGg/SWZG6iYx+QL0w+R6gufpbun8zAoRHd+QNPadmRSr EfoK8Ud7Dl78J4f/eBdkvM8eepuH3Bti+RIZvDlv2Smy75TxC+wzthqCucYtubxoOrIGruoLysoP5ArM cxYZYmTGKC6TtAyuKy6I27caQ6t71G3iq8aWQKUPYm 0qZBrtgrZZr7Hy2xN8X1zNO8OQizwNAUD7JbQHmF68aJaptEP+T6/svp business development/+whFkS7yhUs5dY8z6VHZ7Zy [file] ICAgICAgICAgICAgICAgICAgICAgICAgICAgICAgIC AgICAgICAgICAgICAgICAgICAgICAgICAgICAgICAgICAgICAgICAgICAgICAgICAgICAgICAgICAgIA 0KICAgICAgICAgICAgICAgICAgICAgICAgICAgICAgICAgICAgICAgICAgICAgICAgICAgICAgICAgIC AgICAgICAgICAgICAgICAgICAgICAgICAgICAgICAg NJEpWRRrZDGzMD0VKRKlNSFkSSZaPLQhGNIoGWQmFCGpELCaICFdFBPlFHJgLNVnSSWySZXiCRSjQIJn XMCrZWHvVLEbJCDnFCVzGTHjSUXuAWJbNKAuHEYfCBBiSEDbLGXpMSPsYLXbATYoZTOqWL0GKQXdUZEb ICAgICAgICAgICAgICAgICAgICAgICAgICAgICAgIC AgICAgICAgICAgICAgICAgICAgICAgICAgICAgICAgICAgICAgICAgICAgICAgICAgICAgICAgICAgIC JzJL5QVFBxZZCuUYUlVZLhOXUiMYQzJHRgWKIcVCZeKYGzTWQuLBWqRMRoJOUbBOLsOXDyBVKoRGCzOL AgICAgICAgICAgICAgICAgICAgICAgICAgICAgICAg MLViRZXaPKUwQLGjXJ2YJRHrICXbSTCuIQAdNIHkGKKcDVPjHGExNVVmHTQnPWOkLELkJUTkJONsELUl VCYrCFAtODYpGHWeTGXaUDXfHUDdSMVtWCXzMCHsYROrEUAcHRFkXERvIHCyYKTjNBOgLVSzNC5UAXRt ICAgICAgICAgICAgICAgICAgICAgICAgICAgICAgIC AgICAgICAgICAgICAgICAgICAgICAgICAgICAgICAgICAgICAgICAgICAgICAgICAgICAgICAgICAgIC YqMIZoTL9YWJYlIXGnGURiXOTeYDHsLUAmZLOkQZLhBQGtJGYlRIAaKZKtGKWqFISjCLXaXKDmKLOwAZ AgICAgICAgICAgICAgICAgICAgICAgICAgICAgICAg EHRsXGAfSGKdRJSiFTMqTS6KDGGdOMMfQXToPKTdHZXcGWCuYQKzAEIwVKGyGYVhPNXnJQMwSYWbVBOl HDTuYWZrGETdOQJiYFIaYJJkQNOqQMKcKKEsIGWjNBLkBYTiIPOzGNTdCXIqABLwOKVfMQRxFPPsXU3O UT30kOUdi9Q5BAPeRT5ovvp/At2LPXrpqlSjyHRtFQ 4FHfRcQI0zop6SRnDlNU6yxw5SVHoDCwJzP7A1uMAxJNCfXWVVEwBiV10rWNywMk31DNlfXPUaIxGgQY j7Ug1HAeGxF1trQMGaPkU0LJFoRkF6SFKpSzL6TBSvMeAoBTUbAXZrAKMqSQIMXZC0SWPdOgYsFeSnIX SzLSmjCQXSTEIoEXUqGtQdGnUeSJBdVK8OATHiO913 bnQgMTANCj4+UJhchlFpNqgVZjZkECUic9BhGCh3HQ8KOTSbLtish7IwBYZfMJYYBXfoGR2UPIJ5HSOv ACBgQf0EPXGhN080vcHcSA2WDs2NIlDxSW9xep5TNIPgVDZgXkgKWni8RYppRV8RsVCsEGiQuy5lxzLu jdEAb0YqvrPozQCMFZ1eD4z7FWswIRRcwVT6EPLrrp bsRSCjAMSoET4yQP2oGKPcHMCpMgVtRVTDRY6DBISoTPLqqACyZJEdQYRWSI4WQOixHMM2OZBlwlEidJ IvHXnnLK6AIJPgifVoBLDaYWOCLUl+Az8WMT8sr6VsKBs5NROjVQ5nvi2LINuSQfJtU3Q8iQLmM2B1BR bbYe1DKCUxKTJiEKQgBXZTBSwcRZ4YLS7idxF3JH6F oPTmMVDcSQVrhAAzOFb6N99rrACaLEkuQD4OLZC+Zarina+Lm7HYZIfPICaILQcHpIqNUJPJtCuG2LkU4ZX a0MmR6CsHU59xOhuzsEcCHfxCT3JXD3zSAGiGBXTBP6YyETroC3xvjO3CbKnPVTPRcYhR07agLYtNELi ASSxPICxSr4LPYZkJ6IxyeNjbVxdhmDeFNPoBYQENX 0QPYsrmoXhjUGesPqoAI29eBjhGX1YPa8OSjFzIU9qzn6SfMYzPx4SKPE6TB2NFYUzCHUwJAIfMNS3CC WwDqUnJQzkETGrHHFwUJH8YBHbJYTeXC3KBkFvCSDvSFX3AUJrIQGuDQBuyl1ZVVRvUQIyHplqKdZtCK XrJOHsZRpoVNChIKXwPUC3XASzHFSvIY9TOxEaBQNa IFJlMRvtWCIuYQAlct5YLMDeSXEdWjYnRIOwBXDsCPBeDShrFECrQFW0KeC9ZRYwLBMfDZ0GInKrCAZq VWH2SXApIERyEAExfo5WVTGzOFXeXPVcMMExPCDzTUKjTWbwRQKgQSR9CUEuPGFjHHTbEE1NPoKgJYNw ZTInTKXoVUUlDPAlpb2YAPDfFVJbXHV4SbKcXHUnMC VbWSgsZEHkUSR9XYE0ILGjWELwDP1KUlDwPRFaMNJqSdDzELIyPPCadj4MOKIuDYJvIpy4ApDiTKGuZE WsWKonSCEkUNM4CEhuKDUzGTVxGH8IYiPhVNCeJjNyYNgmNVSnPTPqyp8HSCXoFTThHGTrFCNhPUNbEO SvOBczXJUyJYRrBBL3MUWhOOVaVE0ZJiDcVSQmQvR4 EIQmRBAsUFTvmq5OWRRmIOLhPvH7LDIoTVEtJQJdHMyyIDOzZXT1VgY4DLUsRBOcRB6JTzFhKIFcJilm MpOeQQKgSSBkhq9LOGAnBGPxSeWgBhRhFIJzSNIbOPjfUFBfNHT5BPw3HKCdZMZlTY4QYzFuUWLdSpjr ZZPqLWKxIZDxtv2TBHCnSABiMDS1GmPxWAVwQNQfDB yrWCEhQXJ3WDD0GUHbIHKoUR5GTjRgNUObEnr2VbkuUZOcVTTxso0NOXKmFALvZYndMoJpKQLkWINbOY syTAHnAOZoPoB5WQDeCUOkGN9XZjJrVOHtXVF4AQQrLGDqSNVfuv8IGLIeIDT9MXr6WTNzUYXwFQZmWV swSKXbKVMtXTQwZNZsZTBsIF4RLbWxKETgVPSnMYBy HCMmTPQqet6PWBBlOQT2IjPaJUTpRWNuCDKeAYrlRAClNCMaIIL2RUDyYHOhPD9CTjVuJZPhLGU9ZFEq XAHhLDPzok0OTNHwKIK2QWdlFqEuBDVlSJVoSBnmKKVmLmY7SXX5UFKhGPYwKA0THsNdMYViOZGyVmDd XAPkWNLotv5MKRCfNSJaEff9ZkCbZXYrAZYvLHvfOC UsRbY5AWZ8TOVmCFXdBD9JOqLzLOQnYCyaHBPwOWPgNEApjv0IbYXnjIucni4HCMwINw5OgFnqNBX7FY orOh8mmFU1QUZlTPVMKz3OpjExKHVgAILQAWuzBMSaUNDaUDwqMlU0NQJcJjDaBjI0NTJiRYZ8GCQlPS A7HwJvZcO8T5KbHlAtMzOiJZM9RLMdWAx3MsK1VxV4 AIX4Kfx2OJT+BU7hHGu+Se4Cs9LynoM9kwOkGBdaOKrfVULDPjBnJG0EZGw= ID Date Data Source [id number] 02/25/2020 09:29:[address] [facility] Name Value Range Interpretation Code Description Data Iman rce(s) Supporting Document(s) Progress Note [facility] MPCPFl1gAhNCWzRb69/CLJeiUIBtd0XmQUhvBGq0WZgtUGRcA0VnKMK6mK0rRCF0RVtFLjXvBuJxXXA1 lbm [file] OiG8TUX7gSLwPd9GColgLEWJIuEkTS2DTIm= ID Date Data Source [id number] 01/27/2020 03:13:00 PM EDT [facility] Name Value Range Interpretation Code Description Data Iman rce(s) Supporting Document(s) SARS CORONAVIRUS 2 RNA [facility] This lab was ordered by [facility] and reported by [facility]. ID Date Data Source RESPIRATORY PANEL 01/27/2020 12:00:00 AM EDT eCW1 ([facility]) Name Value Range Interpretation Code Description Data Iman rce(s) Supporting Document(s) This respiratory PCR panel detects Influenza A H1, H3 and RESPIRATORY PANEL eCW1 ([facility]) ID Date Data Source [id number] 01/10/2020 02:35:00 PM EST [facility] ([facility]) Name Value Range Interpretation Code Description Data Iman rce(s) Supporting Document(s) EKG Laboratory test result [facility] ([facility]) ID Date Data Source [id number] 12/15/2019 11:31:00 AM EST [facility] [...] No acute disease. Professional interpretation performed at [facility] [phone].End of diagnostic report for accession: [id number] Interpreted: Nia Haleyranscribed: 12/15/2019 11:31 AMSigned: 12/15/2019 11:31 AM Nia Haley DO [facility] ACC # [id number] BILL # [id number] [facility] Name Value Range Interpretation Code Description Data Iman rce(s) Supporting Document(s) ID Date Data Source [id number] 12/15/2019 12:22:00 PM EST [facility] DATE OF EXAM: 12/15/2019Addendum Begins [...] saphenous venous reflux. Professional interpretation performed at [facility] .Addendum EndsBILATERAL LOWER EXTREMITY VENOUS [...] deep venous thrombosis. Professional interpretation performed at [facility] .End of diagnostic report for accession: [id number] Interpreted: Shahid Fritz MDTranscribed: 12/15/2019 10:58 AMSigned: 12/15/2019 12:22 PM Xander Fritz MD [facility] # [id number] BILL # [id number] [facility] Name Value Range Interpretation Code Description Data Iman rce(s) Supporting Document(s) ID Date Data Source [id number] 12/07/2019 08:30:00 AM EST [place] ([facility]) Name Value Range Interpretation Code Description Data Iman rce(s) Supporting Document(s) white blood count 8.6 10 4.0-10.0 normal White Blood Count [facility] ([facility]) hematocrit 40.0 % 36.0-47.0 normal Hematocrit [facility] ([facility]) mean corpuscular volume 91.5 fL 80.0-96.0 normal Mean Corpusc ular Volume [facility] ([facility]) hemoglobin 12.7 g/dL 12.0-15.5 normal Hemoglobin [facility] ([facility]) red blood count 4.37 10 4.00-5.40 normal Red Blood Count ATHE NA ([facility]) mean corpuscular HGB conc 31.8 g/dL 32.0-36.5 Below low malgorzata l Mean Corpuscular HGB Conc [facility] ([facility]) platelet count, automated 299 10 150-450 normal Platelet C ount, Automated [facility] ([facility]) mean corpuscular hemoglobin 29.1 pg 27.0-33.0 normal Mean Corpuscular Hemoglobin [facility] ([facility]) red cell distribution width 11.7 % 11.5-14.5 normal Red Cell Distribution Width [facility] ([facility]) nucleated red blood cell % 0.0 % 0-0 normal Nucleated Red Blood Cell % [facility] ([facility]) ID Date Data Source [id number] 12/07/2019 08:30:00 AM EST [place] ([facility]) Name Value Range Interpretation Code Description Data Iman rce(s) Supporting Document(s) white blood count 8.6 10 4.0-10.0 normal White Blood Count [facility] ([facility]) hemoglobin 12.7 g/dL 12.0-15.5 normal Hemoglobin [facility] ([facility]) red blood count 4.37 10 4.00-5.40 normal Red Blood Count ATHE NA ([facility]) hematocrit 40.0 % 36.0-47.0 normal Hematocrit [facility] ([facility]) mean corpuscular hemoglobin 29.1 pg 27.0-33.0 normal Mean Corpuscular Hemoglobin [facility] ([facility]) mean corpuscular volume 91.5 fL 80.0-96.0 normal Mean Corpusc ular Volume [facility] ([facility]) red cell distribution width 11.7 % 11.5-14.5 normal Red Cell Distribution Width [facility] ([facility]) mean corpuscular HGB conc 31.8 g/dL 32.0-36.5 Below low malgorzata l Mean Corpuscular HGB Conc [facility] ([facility]) platelet count, automated 299 10 150-450 normal Platelet C ount, Automated [facility] ([facility]) nucleated red blood cell % 0.0 % 0-0 normal Nucleated Red Blood Cell % [facility] ([facility]) ID Date Data Source [id number] 12/07/2019 08:30:00 AM EST [place] ([facility]) Name Value Range Interpretation Code Description Data Iman rce(s) Supporting Document(s) white blood count 8.6 10 4.0-10.0 normal White Blood Count [facility] ([facility]) red blood count 4.37 10 4.00-5.40 normal Red Blood Count ATHE NA ([facility]) hemoglobin 12.7 g/dL 12.0-15.5 normal Hemoglobin [facility] ([facility]) mean corpuscular volume 91.5 fL 80.0-96.0 normal Mean Corpusc ular Volume [facility] ([facility]) hematocrit 40.0 % 36.0-47.0 normal [facility] mean corpuscular hemoglobin 29.1 pg 27.0-33.0 normal Mean Corpuscular Hemoglobin [facility] ([facility]) mean corpuscular HGB conc 31.8 g/dL 32.0-36.5 Below low malgorzata l Mean Corpuscular HGB Conc [facility] ([facility]) nucleated red blood cell % 0.0 % 0-0 normal Nucleated Red Blood Cell % [facility] ([facility]) platelet count, automated 299 10 150-450 normal Platelet C ount, Automated [facility] ([facility]) red cell distribution width 11.7 % 11.5-14.5 normal Red Cell Distribution Width [facility] ([facility]) ID Date Data Source [id number] 12/07/2019 08:29:00 AM EST [facility] ([facility]) Name Value Range Interpretation Code Description Data Iman rce(s) Supporting Document(s) Thiamine [Mass/volume] in Blood 130.3 nmol/L 66.5-200.0 Normal (applies to non- numeric results) [facility] Performed at: [address] [id number] Office Sweeper: Rima Pappas MD, Phone: [phone] ID Date Data Source [id number] 12/07/2019 08:29:00 AM EST [place] ([facility]) Name Value Range Interpretation Code Description Data Iman rce(s) Supporting Document(s) vitamin B1 level whole blood 130.3 nmol/L 66.5-200.0 normal Vitamin B1 Level Whole Blood [place] ([facility]) ID Date Data Source [id number] 12/07/2019 08:29:00 AM EST [place] ([facility]) Name Value Range Interpretation Code Description Data Iman rce(s) Supporting Document(s) ID Date Data Source [id number] 12/07/2019 08:29:00 AM EST [facility] ([facility]) Name Value Range Interpretation Code Description Data Iman rce(s) Supporting Document(s) ID Date Data Source [id number] 12/07/2019 08:29:00 AM EST [facility] ([facility]) Name Value Range Interpretation Code Description Data Iman rce(s) Supporting Document(s) ID Date Data Source [id number] 12/07/2019 08:29:00 AM EST [place] ([facility]) Name Value Range Interpretation Code Description Data Iman rce(s) Supporting Document(s) ID Date Data Source [id number] 12/07/2019 08:29:00 AM EST [place] ([facility]) Name Value Range Interpretation Code Description Data Iman rce(s) Supporting Document(s) Hemoglobin A1c/Hemoglobin.total in Blood 8.8 % normal Hemoglobin a1C [facility] ([facility]) estimated average glucose 206 mg/dL 60-110 Above high norm al Estimated Average Glucose [facility] ([facility]) ID Date Data Source [id number] 12/07/2019 08:29:00 AM EST [place] ([facility]) Name Value Range Interpretation Code Description Data Iman rce(s) Supporting Document(s) ferritin 87 NG/mL 8-252 normal Ferritin [facility] ([facility]) ID Date Data Source [id number] 12/07/2019 08:29:00 AM EST [place] ([facility]) Name Value Range Interpretation Code Description Data Iman rce(s) Supporting Document(s) total 25(oh) vitamin D 21.1 NG/mL 30.0-100.0 Below low normal T otal 25(Oh) Vitamin D [facility] ([facility]) ID Date Data Source [id number] 12/07/2019 08:29:00 AM EST [place] ([facility]) Name Value Range Interpretation Code Description Data Iman rce(s) Supporting Document(s) vitamin B12 level 583 pg/mL normal Vitamin B12 Level [facility] ([facility]) folate 10.5 NG/mL normal Folate [facility] ([facility]) ID Date Data Source [id number] 12/07/2019 08:29:00 AM EST [place] ([facility]) Name Value Range Interpretation Code Description Data Iman rce(s) Supporting Document(s) thyroid stimulating hormone 1.520 uIU/mL 0.358-3.740 normal Thyroid Stimulating Hormone [facility] ([facility]) free T4 1.14 NG/dL 0.76-1.46 normal Free T4 [facility] ([facility]) ID Date Data Source [id number] 12/07/2019 08:29:00 AM EST [place] ([facility]) Name Value Range Interpretation Code Description Data Iman rce(s) Supporting Document(s) iron (fe) 46 ug/dL 50-170 Below low normal Iron (Fe) [facility] ( [facility]) total iron binding capacity 265 ug/dL 250-450 normal Total Iron Binding Capacity [facility] ([facility]) percent saturation 17.4 % 13.2-45.0 normal Percent Saturatio n [facility] ([facility]) ID Date Data Source [id number] 12/07/2019 08:29:00 AM EST [place] ([facility]) Name Value Range Interpretation Code Description Data Iman rce(s) Supporting Document(s) triglycerides level 141 mg/dL <150 normal Triglycerides Le debbie [place] ([facility]) HDL cholesterol 49 mg/dL >40 normal HDL Cholesterol ATHE NA ([facility]) Cholesterol in LDL [Mass/volume] in Serum or Plasma 118 mg/dL <100 Above high normal LDL Cholesterol [facility] cholesterol level 195 mg/dL <200 normal Cholesterol Level [facility] ([facility]) non-HDL-C 146 mg/dL normal Non-hdl-c [facility] ([facility]) cholesterol risk ratio <5 normal Cholesterol R isk Ratio [facility] ([facility]) ID Date Data Source [id number] 12/07/2019 08:29:00 AM EST [place] ([facility]) Name Value Range Interpretation Code Description Data Iman rce(s) Supporting Document(s) blood urea nitrogen 11 mg/dL 7-18 normal Blood Urea Nitro gen [facility] ([facility]) glucose, fasting 162 mg/dL 70-100 Above high normal Glucose, Fas ting [facility] ([facility]) sodium level 138 mEq/L 136-145 normal Sodium Level [facility] ([facility]) creatinine for GFR 0.72 mg/dL 0.55-1.30 normal Creatinine for GF R [facility] ([facility]) glomerular filtration rate > 60.0 >51 normal Glomerula r Filtration Rate [facility] ([facility]) potassium serum 4.5 mEq/L 3.5-5.1 normal Potassium Serum ATHE NA ([facility]) chloride level 105 mEq/L 98-107 normal Chloride Level [facility] ([facility]) carbon dioxide level 27 mEq/L 21-32 normal Carbon Dioxide Level [facility] ([facility]) anion gap 6 mEq/L 8-16 Below low normal Anion Gap [facility] ( [facility]) alkaline phosphatase 77 U/L 45-117 normal Alkaline Phosph atase [facility] ([facility]) AST/SGOT 20 U/L 7-37 normal AST/SGOT [facility] ([facility]) calcium level 8.9 mg/dL 8.5-10.1 normal Calcium Level [facility] ( [facility]) ALT/SGPT 29 U/L 12-78 normal ALT/SGPT [facility] ([facility]) albumin 3.6 gm/dL 3.2-5.2 normal Albumin [facility] ([facility]) bilirubin,total 0.3 mg/dL 0.2-1.0 normal Bilirubin,total ATHE NA ([facility]) total protein 7.3 gm/dL 6.4-8.2 normal Total Protein [facility] ( [facility]) albumin/globulin ratio 1.00-1.93 Below low normal Albumin /globulin Ratio [facility] ([facility]) ID Date Data Source [id number] 12/07/2019 08:29:00 AM EST [place] ([facility]) Name Value Range Interpretation Code Description Data Iman rce(s) Supporting Document(s) vitamin B1 level whole blood 130.3 nmol/L 66.5-200.0 normal Vitamin B1 Level Whole Blood [facility] ([facility]) ID Date Data Source [id number] 12/07/2019 08:29:00 AM EST [place] ([facility]) Name Value Range Interpretation Code Description Data Iamn rce(s) Supporting Document(s) ID Date Data Source [id number] 12/07/2019 08:29:00 AM EST [place] ([facility]) Name Value Range Interpretation Code Description Data Iman rce(s) Supporting Document(s) ID Date Data Source [id number] 12/07/2019 08:29:00 AM EST [place] ([facility]) Name Value Range Interpretation Code Description Data Iman rce(s) Supporting Document(s) ID Date Data Source [id number] 12/07/2019 08:29:00 AM EST [place] ([facility]) Name Value Range Interpretation Code Description Data Iman rce(s) Supporting Document(s) ID Date Data Source [id number] 12/07/2019 08:29:00 AM EST [place] ([facility]) Name Value Range Interpretation Code Description Data Iman rce(s) Supporting Document(s) estimated average glucose 206 mg/dL 60-110 Above high norm al Estimated Average Glucose [facility] ([facility]) Hemoglobin A1c/Hemoglobin.total in Blood 8.8 % normal Hemoglobin a1C [facility] ([facility]) ID Date Data Source [id number] 12/07/2019 08:29:00 AM EST [place] ([facility]) Name Value Range Interpretation Code Description Data Iman rce(s) Supporting Document(s) ferritin 87 NG/mL 8-252 normal Ferritin [facility] ([facility]) ID Date Data Source [id number] 12/07/2019 08:29:00 AM EST [place] ([facility]) Name Value Range Interpretation Code Description Data Iman rce(s) Supporting Document(s) total 25(oh) vitamin D 21.1 NG/mL 30.0-100.0 Below low normal T otal 25(Oh) Vitamin D [facility] ([facility]) ID Date Data Source [id number] 12/07/2019 08:29:00 AM EST [place] ([facility]) Name Value Range Interpretation Code Description Data Iman rce(s) Supporting Document(s) folate 10.5 NG/mL normal Folate [facility] ([facility]) vitamin B12 level 583 pg/mL normal Vitamin B12 Level [facility] ([facility]) ID Date Data Source [id number] 12/07/2019 08:29:00 AM EST [place] ([facility]) Name Value Range Interpretation Code Description Data Iman rce(s) Supporting Document(s) free T4 1.14 NG/dL 0.76-1.46 normal Free T4 AKIRA ([facility]) thyroid stimulating hormone 1.520 uIU/mL 0.358-3.740 normal Thyroid Stimulating Hormone AKIRA ([facility]) ID Date Data Source [id number] 12/07/2019 08:29:00 AM EST AKIRA ([facility]) Name Value Range Interpretation Code Description Data Iman rce(s) Supporting Document(s) total iron binding capacity 265 ug/dL 250-450 normal Total Iron Binding Capacity AKIRA ([facility]) iron (fe) 46 ug/dL 50-170 Below low normal Iron (Fe) AKIRA ( [facility]) percent saturation 17.4 % 13.2-45.0 normal Percent Saturatio n AKIRA ([facility]) ID Date Data Source [id number] 12/07/2019 08:29:00 AM EST AKIRA ([facility]) Name Value Range Interpretation Code Description Data Iman rce(s) Supporting Document(s) triglycerides level 141 mg/dL <150 normal Triglycerides Le debbie AKIRA ([facility]) cholesterol level 195 mg/dL <200 normal Cholesterol Level AKIRA ([facility]) HDL cholesterol 49 mg/dL >40 normal HDL Cholesterol ATHE NA ([facility]) non-HDL-C 146 mg/dL normal Non-hdl-c AKIRA ([facility]) Cholesterol in LDL [Mass/volume] in Serum or Plasma 118 mg/dL <100 Above high normal LDL Cholesterol AKIRA ([facility]) cholesterol risk ratio <5 normal Cholesterol R isk Ratio AKIRA ([facility]) ID Date Data Source [id number] 12/07/2019 08:29:00 AM EST AKIRA ([facility]) Name Value Range Interpretation Code Description Data Iman rce(s) Supporting Document(s) glucose, fasting 162 mg/dL 70-100 Above high normal Glucose, Fas ting AKIRA ([facility]) blood urea nitrogen 11 mg/dL 7-18 normal Blood Urea Nitro gen AKIRA ([facility]) creatinine for GFR 0.72 mg/dL 0.55-1.30 normal Creatinine for GF R AKIRA ([facility]) glomerular filtration rate > 60.0 >51 normal Glomerula r Filtration Rate AKIRA ([facility]) sodium level 138 mEq/L 136-145 normal Sodium Level AKIRA ([facility]) chloride level 105 mEq/L 98-107 normal Chloride Level AKIRA ([facility]) potassium serum 4.5 mEq/L 3.5-5.1 normal Potassium Serum ATHE NA ([facility]) carbon dioxide level 27 mEq/L 21-32 normal Carbon Dioxide Level AKIRA ([facility]) calcium level 8.9 mg/dL 8.5-10.1 normal Calcium Level AKIRA ( [facility]) ALT/SGPT 29 U/L 12-78 normal ALT/SGPT AKIRA ([facility]) anion gap 6 mEq/L 8-16 Below low normal Anion Gap AKIRA ( [facility]) AST/SGOT 20 U/L 7-37 normal AST/SGOT AKIRA ([facility]) total protein 7.3 gm/dL 6.4-8.2 normal Total Protein AKIRA ( [facility]) albumin 3.6 gm/dL 3.2-5.2 normal Albumin AKIRA ([facility]) bilirubin,total 0.3 mg/dL 0.2-1.0 normal Bilirubin,total ATHE NA ([facility]) alkaline phosphatase 77 U/L 45-117 normal Alkaline Phosph atase AKIRA ([facility]) albumin/globulin ratio 1.00-1.93 Below low normal Albumin /globulin Ratio AKIRA ([facility]) ID Date Data Source [id number] 12/07/2019 08:29:00 AM EST AKIRA ([facility]) Name Value Range Interpretation Code Description Data Iman rce(s) Supporting Document(s) vitamin B1 level whole blood 130.3 nmol/L 66.5-200.0 normal Vitamin B1 Level Whole Blood AKIRA ([facility]) ID Date Data Source [id number] 12/07/2019 08:29:00 AM EST AKIRA ([facility] ) Name Value Range Interpretation Code Description Data Iman rce(s) Supporting Document(s) ID Date Data Source [id number] 12/07/2019 08:29:00 AM EST AKIRA ([facility] ) Name Value Range Interpretation Code Description Data Iman rce(s) Supporting Document(s) ID Date Data Source [id number] 12/07/2019 08:29:00 AM EST AKIRA ([facility] ) Name Value Range Interpretation Code Description Data Iman rce(s) Supporting Document(s) ID Date Data Source [id number] 12/07/2019 08:29:00 AM EST AKIRA ([facility]) Name Value Range Interpretation Code Description Data Iman rce(s) Supporting Document(s) ID Date Data Source [id number] 12/07/2019 08:29:00 AM EST AKIRA ([facility] ) Name Value Range Interpretation Code Description Data Iman rce(s) Supporting Document(s) Hemoglobin A1c/Hemoglobin.total in Blood 8.8 % normal Hemoglobin a1C AKIRA ([facility]) estimated average glucose 206 mg/dL 60-110 Above high norm al Estimated Average Glucose AKIRA ([facility]) ID Date Data Source [id number] 12/07/2019 08:29:00 AM EST AKIRA ([facility]) Name Value Range Interpretation Code Description Data Iman rce(s) Supporting Document(s) ferritin 87 NG/mL 8-252 normal Ferritin AKIRA ([facility] ) ID Date Data Source [id number] 12/07/2019 08:29:00 AM EST AKIRA ([facility]) Name Value Range Interpretation Code Description Data Iman rce(s) Supporting Document(s) total 25(oh) vitamin D 21.1 NG/mL 30.0-100.0 Below low normal T otal 25(Oh) Vitamin D AKIRA ([facility]) ID Date Data Source [id number] 12/07/2019 08:29:00 AM EST AKIRA ([facility]) Name Value Range Interpretation Code Description Data Iman rce(s) Supporting Document(s) folate 10.5 NG/mL normal Folate AKIRA ([facility]) vitamin B12 level 583 pg/mL normal Vitamin B12 Level AKIRA ([facility]) ID Date Data Source [id number] 12/07/2019 08:29:00 AM EST AKIRA ([facility]) Name Value Range Interpretation Code Description Data Iman rce(s) Supporting Document(s) free T4 1.14 NG/dL 0.76-1.46 normal Free T4 AKIRA ([facility]) thyroid stimulating hormone 1.520 uIU/mL 0.358-3.740 normal Thyroid Stimulating Hormone AKIRA ([facility]) ID Date Data Source [id number] 12/07/2019 08:29:00 AM EST AKIRA ([facility]) Name Value Range Interpretation Code Description Data Iman rce(s) Supporting Document(s) iron (fe) 46 ug/dL 50-170 Below low normal Iron (Fe) AKIRA ( [facility]) percent saturation 17.4 % 13.2-45.0 normal Percent Saturatio n AKIRA ([facility]) total iron binding capacity 265 ug/dL 250-450 normal Total Iron Binding Capacity AKIRA ([facility]) ID Date Data Source [id number] 12/07/2019 08:29:00 AM EST AKIRA ([facility]) Name Value Range Interpretation Code Description Data Iman rce(s) Supporting Document(s) Cholesterol in LDL [Mass/volume] in Serum or Plasma 118 mg/dL <100 Above high normal LDL Cholesterol AKIRA ([facility]) HDL cholesterol 49 mg/dL >40 normal HDL Cholesterol ATHE NA ([facility]) cholesterol level 195 mg/dL <200 normal Cholesterol Level AKIRA ([facility]) triglycerides level 141 mg/dL <150 normal Triglycerides Le debbie AKIRA ([facility]) non-HDL-C 146 mg/dL normal Non-hdl-c AKIRA ([facility]) cholesterol risk ratio <5 normal Cholesterol R isk Ratio AKIRA ([facility]) ID Date Data Source [id number] 12/07/2019 08:29:00 AM EST AKIRA ([facility]) Name Value Range Interpretation Code Description Data Iman rce(s) Supporting Document(s) glucose, fasting 162 mg/dL 70-100 Above high normal Glucose, Fas ting AKIRA ([facility]) creatinine for GFR 0.72 mg/dL 0.55-1.30 normal Creatinine for GF R AKIRA ([facility]) sodium level 138 mEq/L 136-145 normal Sodium Level AKIRA ([facility]) blood urea nitrogen 11 mg/dL 7-18 normal Blood Urea Nitro gen AKIRA ([facility]) glomerular filtration rate > 60.0 >51 normal Glomerula r Filtration Rate AKIRA ([facility]) potassium serum 4.5 mEq/L 3.5-5.1 normal Potassium Serum ATHE NA ([facility]) chloride level 105 mEq/L 98-107 normal Chloride Level AKIRA ([facility]) anion gap 6 mEq/L 8-16 Below low normal Anion Gap AKIRA ( [facility]) carbon dioxide level 27 mEq/L 21-32 normal Carbon Dioxide Level AKIRA ([facility]) AST/SGOT 20 U/L 7-37 normal AST/SGOT AKIRA ([facility]) calcium level 8.9 mg/dL 8.5-10.1 normal Calcium Level AKIRA ( [facility]) alkaline phosphatase 77 U/L 45-117 normal Alkaline Phosph atase AKIRA ([facility]) ALT/SGPT 29 U/L 12-78 normal ALT/SGPT AKIRA ([facility]) albumin/globulin ratio 1.00-1.93 Below low normal Albumin /globulin Ratio AKIRA ([facility]) albumin 3.6 gm/dL 3.2-5.2 normal Albumin AKIRA ([facility]) total protein 7.3 gm/dL 6.4-8.2 normal Total Protein AKIRA ( [facility]) bilirubin,total 0.3 mg/dL 0.2-1.0 normal Bilirubin,total ATHE NA ([facility]) ID Date Data Source [id number] 11/22/2019 03:21:[address] [facility] Name Value Range Interpretation Code Description Data Iman rce(s) Supporting Document(s) Progress Note [facility] [id number] [facility] [file] [id number] ID Date Data Source [id number] 11/19/2019 04:50:38 PM [facility] Name Value Range Interpretation Code Description Data Iman rce(s) Supporting Document(s) Leukocytes [#/volume] in Blood by Automated count 10.3 10*3/uL 4-10 H [facility] Erythrocytes [#/volume] in Blood by Automated count 4.32 10*6/uL 4.1- 5.3 [facility] Hemoglobin [Mass/volume] in Blood 13.1 g/dL 11.5-15.5 [facility] Hematocrit [Volume Fraction] of Blood by Automated count 39.2 % 3 6-45 [facility] Erythrocyte mean corpuscular volume [Entitic volume] by Auto mated count 90.8 fL 80-96 [facility] Erythrocyte mean corpuscular hemoglobin [Entitic mass] by Automated count 30.3 pg 27-33 [facility] Erythrocyte mean corpuscular hemoglobin concentration [Mass/volume] by Automated count 33.4 g/dL 32.0-[facility] distribution width [Ratio] by Automated count 13.0 % 11.5-14.5 [facility] Platelets [#/volume] in Blood by Automated count 365 10*3/uL 150-400 [facility] Differential cell count method - Blood [facility] Neutrophils/100 leukocytes in Blood by Automated count 51 % [facility] Lymphocytes/100 leukocytes in Blood by Automated count 42 % [facility] Monocytes/100 leukocytes in Blood by Automated count 5 % [facility] Eosinophils/100 leukocytes in Blood by Automated count 1 % [facility] Basophils/100 leukocytes in Blood by Automated count 1 % [facility] Neutrophils [#/volume] in Blood by Automated count 5.29 10*3/uL 1.8-7 .0 [facility] Lymphocytes [#/volume] in Blood by Automated count 4.30 10*3/uL 1.2-4 .0 H [facility] Monocytes [#/volume] in Blood by Automated count 0.49 10*3/uL 0-0.8 [facility] Eosinophils [#/volume] in Blood by Automated count 0.14 10*3/uL 0-0.5 [facility] Basophils [#/volume] in Blood by Automated count 0.06 10*3/uL 0-0.2 [facility] Nucleated erythrocytes/100 leukocytes [Ratio] in Blood by Automated count 0 /100{WBCs} 0-0 [facility] ID Date Data Source [id number] 11/19/2019 04:56:49 PM [facility] Value Range Interpretation Code Description Data Iman rce(s) Supporting Document(s) Erythrocyte sedimentation rate 26 mm/hr <30 [facility] ID Date Data Source [id number] 11/19/2019 05:17:03 PM [facility] Value Range Interpretation Code Description Data Iman rce(s) Supporting Document(s) Complement C3 [Mass/volume] in Serum or Plasma 149 mg/dL 90-180 [facility] ID Date Data Source [id number] 11/19/2019 05:17:03 PM [facility] Value Range Interpretation Code Description Data Iman rce(s) Supporting Document(s) Complement C4 [Mass/volume] in Serum or Plasma 23 mg/dL 10-40 [facility] ID Date Data Source [id number] 11/19/2019 05:17:03 PM [facility] Value Range Interpretation Code Description Data Iman rce(s) Supporting Document(s) Creatinine [Mass/volume] in Serum or Plasma 0.68 mg/dL 0.50-0.90 [facility] Glomerular filtration rate/1.73 sq M pre dicted among non-blacks [Volume Rate/Area] in Serum or Plasma by Creatinine-based formula (MDRD) >6 0 [facility] Glomerular filtration rate/1.73 sq M pre dicted among blacks [Volume Rate/Area] in Serum or Plasma by Creatinine-based formula (MDRD) >60 [facility] ID Date Data Source [id number] 11/19/2019 05:17:03 PM [facility] Value Range Interpretation Code Description Data Iman rce(s) Supporting Document(s) Albumin [Mass/volume] in Serum or Plasma by Bromocresol green (BCG) dye binding method 4.6 g/dL 3.5-5.[facility] Bilirubin.total [Mass/volume] in Serum or Plasma 0.4 mg/dL <1.2 [facility] Bilirubin.direct [Mass/volume] in Serum or Plasma <0.3 [facility] Alkaline phosphatase [Enzymatic activity/volume] in Serum or Plasma 76 U/L 35-104 [facility] Aspartate aminotransferase [Enzymatic activity/volume] in Serum or Plasma 19 U/L <32 [facility] Alanine aminotransferase [Enzymatic activity/volume] in Seru m or Plasma 19 U/L <33 [facility] Protein [Mass/volume] in Serum or Plasma 7.8 g/dL 6.4-8.3 [facility] ID Date Data Source [id number] 11/22/2019 02:39:19 PM EST [facility] Name Value Range Interpretation Code Description Data Iman rce(s) Supporting Document(s) Nuclear Ab Pattern Homogenous [Titer] in Serum <80 [facility] Nuclear Ab pattern.speckled [Titer] in Serum <80 [facility] Nuclear Ab pattern.rim [Titer] in Serum <80 [facility] Nuclear Ab pattern.nucleolar [Titer] in Serum <80 [facility] Procedure Social History Code Duration Value Status Description Data Source(s ) Alcohol intake 11/14/2020 12:00:00 AM EST Current drinker of al cohol (finding) completed Current drinker of alcohol (finding) [facility] Tobacco use and exposure 11/14/2020 12:00:00 AM EST Never used co mpleted Never used [facility] Cigarette pack-years 11/14/2020 12:00:00 AM EST UNK [facility] Cigarettes smoked current (pack per day) - Reported 11/14/19 21 12:00:00 AM EST UNK completed [facility] Smoking 11/14/2020 12:00:00 AM EST Former smoker completed Former smoker [facility] Smoking 08/25/2020 04:53:00 PM EDT Former Smoker completed Former Smoker [facility] ETOH Use 08/21/2020 12:00:00 AM EDT Denies alcohol use complete d Denies alcohol use MEDENT ([facility]) Alcohol intake 08/08/2020 12:00:00 AM EDT Current drinker of al cohol (finding) completed Current drinker of alcohol (finding) [facility] Alcohol intake 07/20/2020 12:00:00 AM EDT Current drinker of al cohol (finding) completed Current drinker of alcohol (finding) [facility] Alcohol intake 07/06/2020 12:00:00 AM EDT Current drinker of al cohol (finding) completed Current drinker of alcohol (finding) [facility] Smoking 04/12/2020 12:00:00 AM EDT Patient is a former smoker completed Patient is a former smoker MEDENT ([facility] ) Alcohol intake 03/03/2020 12:00:00 AM EDT Current drinker of al cohol (finding) completed Current drinker of alcohol (finding) [facility] Cigarette pack-years 03/03/2020 12:00:00 AM EDT UNK completed [facility] Cigarettes smoked current (pack per day) - Reported 03/03/20 12:00:00 AM EDT UNK completed [facility] Smoking 03/03/2020 12:00:00 AM EDT Former smoker completed Former smoker [facility] Alcohol intake 11/22/2019 12:00:00 AM EST Current drinker of al cohol (finding) completed Current drinker of alcohol (finding) [facility] Cigarette pack-years 11/22/2019 12:00:00 AM EST UNK [facility] Cigarettes smoked current (pack per day) - Reported 11/22/19 12:00:00 AM EST UNK completed [facility] Smoking 11/22/2019 12:00:00 AM EST Former smoker completed Former smoker [facility] Vital Signs ID Date Data Source UNK Name Value Range Interpretation Code Description Data Source(s) Diastolic blood pressure 63 mm[Hg] 63 mm[Hg] eCW1 ([facility]) Systolic blood pressure 135 mm[Hg] 135 mm[Hg] e CW1 ([facility]) Body temperature 96.6 [degF] 96.6 [degF] eCW1 ( [facility]) Respiratory rate 16 /min 16 /min eCW1 ([facility]) Heart rate 81 /min 81 /min eCW1 ([facility]) Body mass index (BMI) [Ratio] 39.15 kg/m2 39.15 kg/m2 eCW1 ([facility]) Body height 67 [in_i] 67 [in_i] eCW1 ([facility]) Body weight kg eCW1 ([facility]) Body weight 250 [lb_av] 250 [lb_av] eCW1 ([facility]) Diastolic blood pressure 63 mm[Hg] 63 mm[Hg] eCW1 ([facility]) Systolic blood pressure 137 mm[Hg] 137 mm[Hg] e CW1 ([facility]) Body temperature 95.3 [degF] 95.3 [degF] eCW1 ( [facility]) Respiratory rate 18 /min 18 /min eCW1 ([facility]) Heart rate 78 /min 78 /min eCW1 ([facility]) Body mass index (BMI) [Ratio] 39.15 kg/m2 39.15 kg/m2 W1 ([facility]) Body height 67 [in_i] 67 [in_i] eCW1 ([facility]) Body weight kg eCW1 ([facility]) Body weight 250 [lb_av] 250 [lb_av] eCW1 ([facility]) Diastolic blood pressure 61 mm[Hg] 61 mm[Hg] eCW1 ([facility]) Systolic blood pressure 150 mm[Hg] 150 mm[Hg] e CW1 ([facility]) Body temperature 96.7 [degF] 96.7 [degF] eCW1 ( [facility]) Respiratory rate 18 /min 18 /min eCW1 ([facility]) Heart rate 75 /min 75 /min eCW1 ([facility]) Body mass index (BMI) [Ratio] 39.62 kg/m2 39.62 kg/m2 eCW1 ([facility]) Body height 67 [in_i] 67 [in_i] eCW1 ([facility]) Body weight kg eCW1 ([facility]) Body weight 253 [lb_av] 253 [lb_av] eCW1 ([facility]) Body temperature 96.7 [degF] 96.7 [degF] MEDENT ([facility] ) Diastolic blood pressure 70 mm[Hg] 70 mm[Hg] eCW1 ([facility]) Systolic blood pressure 158 mm[Hg] 158 mm[Hg] e CW1 ([facility]) Body temperature 97.1 [degF] 97.1 [degF] eCW1 ( [facility]) Respiratory rate 18 /min 18 /min eCW1 ([facility]) Heart rate 83 /min 83 /min eCW1 ([facility]) Body mass index (BMI) [Ratio] 40.72 kg/m2 40.72 kg/m2 eCW1 ([facility]) Body height 67 [in_i] 67 [in_i] eCW1 ([facility]) Body weight kg eCW1 ([facility]) Body weight 260 [lb_av] 260 [lb_av] eCW1 ([facility]) Diastolic blood pressure 74 mm[Hg] 74 mm[Hg] eCW1 ([facility]) Systolic blood pressure 120 mm[Hg] 120 mm[Hg] e CW1 ([facility]) Body temperature 97.4 [degF] 97.4 [degF] eCW1 ( [facility]) Respiratory rate 18 /min 18 /min eCW1 ([facility]) Heart rate 92 /min 92 /min eCW1 ([facility]) Body mass index (BMI) [Ratio] 40.72 kg/m2 40.72 kg/m2 eCW1 ([facility]) Body height 67 [in_i] 67 [in_i] eCW1 ([facility]) Body weight 260 [lb_av] 260 [lb_av] eCW1 ([facility]) Diastolic blood pressure 53 mm[Hg] 53 mm[Hg] eCW1 ([facility]) Systolic blood pressure 134 mm[Hg] 134 mm[Hg] e CW1 ([facility]) Body temperature 95.4 [degF] 95.4 [degF] eCW1 ( [facility]) Respiratory rate 18 /min 18 /min eCW1 ([facility]) Heart rate 82 /min 82 /min eCW1 ([facility]) Body mass index (BMI) [Ratio] 40.25 kg/m2 40.25 kg/m2 eCW1 ([facility]) Body height 67 [in_i] 67 [in_i] eCW1 ([facility]) Body weight kg eCW1 ([facility]) Body weight 257 [lb_av] 257 [lb_av] eCW1 ([facility]) Diastolic blood pressure 58 mm[Hg] 58 mm[Hg] eCW1 ([facility]) Systolic blood pressure 111 mm[Hg] 111 mm[Hg] e CW1 ([facility]) Body temperature 98.9 [degF] 98.9 [degF] eCW1 ( [facility]) Respiratory rate 16 /min 16 /min eCW1 ([facility]) Heart rate 71 /min 71 /min eCW1 ([facility]) Body mass index (BMI) [Ratio] 40.25 kg/m2 40.25 kg/m2 eCW1 ([facility]) Body height 67 [in_i] 67 [in_i] eCW1 ([facility]) Body weight [lb_av] eCW1 ([facility]) Diastolic blood pressure 68 mm[Hg] 68 mm[Hg] eCW1 ([facility]) Systolic blood pressure 112 mm[Hg] 112 mm[Hg] e CW1 ([facility]) Body temperature 98.2 [degF] 98.2 [degF] eCW1 ( [facility]) Respiratory rate 18 /min 18 /min eCW1 ([facility]) Heart rate 119 /min 119 /min eCW1 ([facility]) Body mass index (BMI) [Ratio] 40.56 kg/m2 40.56 kg/m2 eCW1 ([facility]) Body weight 259 [lb_av] 259 [lb_av] eCW1 ([facility]) Body height 67 [in_i] 67 [in_i] eCW1 ([facility]) Oxygen saturation in Arterial blood by Pulse oximetry 99 % 99 % MEDENT ([facility]) Body temperature 36.3 La 36.3 La MEDENT ( [facility]) Body temperature 97.3 [degF] 97.3 [degF] MEDENT ([facility]) Heart rate 77 /min 77 /min MED[facility] ([facility]) Diastolic blood pressure 70 mm[Hg] 70 mm[Hg] MEDENT ([facility]) Systolic blood pressure 110 mm[Hg] 110 mm[Hg] M EDENT ([facility]) Body mass index (BMI) [Ratio] 40.1 kg/m2 40.1 k g/m2 MEDENT ([facility]) Body weight 256.12 [lb_av] 256.12 [lb_av] MEDEN T ([facility]) Body height 67 [in_i] 67 [in_i] MED[facility] ([facility]) 5'7" Diastolic blood pressure 76 mm[Hg] 76 mm[Hg] eCW1 ([facility]) Systolic blood pressure 132 mm[Hg] 132 mm[Hg] e CW1 ([facility]) Body temperature 96.9 [degF] 96.9 [degF] eCW1 ( [facility]) Respiratory rate 18 /min 18 /min eCW1 ([facility]) Heart rate 96 /min 96 /min eCW1 ([facility]) Body mass index (BMI) [Ratio] 42.44 kg/m2 42.44 kg/m2 W1 ([facility]) Body height 67 [in_i] 67 [in_i] eCW1 ([facility]) Body weight kg eCW1 ([facility]) Body weight 271 [lb_av] 271 [lb_av] eCW1 ([facility]) Body temperature 36.6 la Normal (applies to non-numeric results) 36.6 la [facility] Respiratory rate 17 min Normal (applies to non-numeric results) 17 min [facility] Heart rate 57 min Normal (applies to non-numeric resul ts) 57 min [facility] Diastolic blood pressure 72 mm[Hg] Normal (applies to non-numeric results) 72 mm[Hg] [facility] Systolic blood pressure 108 mm[Hg] Normal (applies t o non-numeric results) 108 mm[Hg] [facility] Deprecated Oxygen saturation in Capillary blood by Oximetry 96 % Normal (applies to non-numeric results) 96 % [facility] Inhaled oxygen concentration 21 % Normal (appl ies to non-numeric results) 21 % [facility] Body height 169.06383661534406 cm Normal (applies to non-numeric results) 169.21719001679504 cm [facility] Body weight Measured 120.9 kg Normal (applies to n on-numeric results) 120.9 kg [facility] Body mass index (BMI) [Ratio] 41.75 kg/m2 No rmal (applies to non-numeric results) 41.75 kg/m2 [facility] Diastolic blood pressure 70 mm[Hg] 70 mm[Hg] eCW1 ([facility]) Systolic blood pressure 130 mm[Hg] 130 mm[Hg] e CW1 ([facility]) Body temperature 97 [degF] 97 [degF] eCW1 ([facility]) Respiratory rate 18 /min 18 /min eCW1 ([facility]) Heart rate 96 /min 96 /min eCW1 ([facility]) Body mass index (BMI) [Ratio] 42.44 kg/m2 42.44 kg/m2 W1 ([facility]) Body height 67 [in_i] 67 [in_i] eCW1 ([facility]) Body weight 271 [lb_av] 271 [lb_av] eCW1 ([facility]) Diastolic blood pressure 81 mm[Hg] 81 mm[Hg] eCW1 ([facility]) Systolic blood pressure 123 mm[Hg] 123 mm[Hg] e CW1 ([facility]) Body temperature 94.9 [degF] 94.9 [degF] eCW1 ( [facility]) Respiratory rate 18 /min 18 /min eCW1 ([facility]) Heart rate 79 /min 79 /min eCW1 ([facility]) Body mass index (BMI) [Ratio] 42.60 kg/m2 42.60 kg/m2 eCW1 ([facility]) Body height 67 [in_i] 67 [in_i] eCW1 ([facility]) Body weight kg eCW1 ([facility]) Body weight 272 [lb_av] 272 [lb_av] eCW1 ([facility]) Diastolic blood pressure 68 mm[Hg] 68 mm[Hg] eCW1 ([facility]) Systolic blood pressure 120 mm[Hg] 120 mm[Hg] e CW1 ([facility]) Body temperature 96.6 [degF] 96.6 [degF] eCW1 ( [facility]) Respiratory rate 18 /min 18 /min eCW1 ([facility]) Heart rate 110 /min 110 /min eCW1 ([facility]) Body mass index (BMI) [Ratio] 43.07 kg/m2 43.07 kg/m2 eCW1 ([facility]) Body height 67 [in_i] 67 [in_i] eCW1 ([facility]) Body weight 275 [lb_av] 275 [lb_av] eCW1 ([facility]) Oxygen saturation in Arterial blood by Pulse oximetry 98 % 98 % MED[facility] ([facility]) Body temperature 36.0 La 36.0 La MEDENT ( [facility]) Body temperature 96.8 [degF] 96.8 [degF] MED[facility] ([facility]) Heart rate 77 /min 77 /min [facility] ([facility]) Diastolic blood pressure 80 mm[Hg] 80 mm[Hg] [facility] ([facility]) Systolic blood pressure 138 mm[Hg] 138 mm[Hg] M EDENT ([facility]) Body mass index (BMI) [Ratio] 43.1 kg/m2 43.1 k g/m2 MED[facility] ([facility]) Body weight 275.38 [lb_av] 275.38 [lb_av] MEDEN T ([facility]) Body height 67 [in_i] 67 [in_i] [facility] ([facility]) 5'7" Diastolic blood pressure 73 mm[Hg] 73 mm[Hg] eCW1 ([facility]) Systolic blood pressure 150 mm[Hg] 150 mm[Hg] e CW1 ([facility]) Body temperature 96.8 [degF] 96.8 [degF] eCW1 ( [facility]) Respiratory rate 18 /min 18 /min eCW1 ([facility]) Heart rate 95 /min 95 /min eCW1 ([facility]) Body mass index (BMI) [Ratio] 42.91 kg/m2 42.91 kg/m2 eCW1 ([facility]) Body height 67 [in_i] 67 [in_i] eCW1 ([facility]) Body weight 274 [lb_av] 274 [lb_av] eCW1 ([facility]) Diastolic blood pressure 70 mm[Hg] 70 mm[Hg] eCW1 ([facility]) Systolic blood pressure 130 mm[Hg] 130 mm[Hg] e CW1 ([facility]) Body temperature 98.2 [degF] 98.2 [degF] eCW1 ( [facility]) Respiratory rate 18 /min 18 /min eCW1 ([facility]) Heart rate 90 /min 90 /min eCW1 ([facility]) Body mass index (BMI) [Ratio] 42.91 kg/m2 42.91 kg/m2 eCW1 ([facility]) Body height 67 [in_i] 67 [in_i] eCW1 ([facility]) Body weight 274 [lb_av] 274 [lb_av] eCW1 ([facility]) Heart rate 72 /min 72 /min MEDENT ([facility]) Diastolic blood pressure 62 mm[Hg] 62 mm[Hg] MEDENT ([facility]) Systolic blood pressure 126 mm[Hg] 126 mm[Hg] M EDENT ([facility]) Body mass index (BMI) [Ratio] 43.3 kg/m2 43.3 k g/m2 MEDENT ([facility]) Body weight 276.25 [lb_av] 276.25 [lb_av] MEDEN T ([facility]) Body height 67 [in_i] 67 [in_i] MEDENT ([facility]) 5'7" Body mass index (BMI) [Ratio] 41.5 kg/m2 41.5 k g/m2 MEDENT ([facility]) Body weight 265.00 [lb_av] 265.00 [lb_av] MEDEN T ([facility]) Body height 67 [in_i] 67 [in_i] MEDENT ([facility]) 5'7" Diastolic blood pressure 76 mm[Hg] 76 mm[Hg] eCW1 ([facility]) Systolic blood pressure 124 mm[Hg] 124 mm[Hg] e CW1 ([facility]) Body temperature 97.5 [degF] 97.5 [degF] eCW1 ( [facility]) Respiratory rate 20 /min 20 /min eCW1 ([facility]) Heart rate 104 /min 104 /min eCW1 ([facility]) Body mass index (BMI) [Ratio] 41.97 kg/m2 41.97 kg/m2 W1 ([facility]) Body height 67 [in_i] 67 [in_i] eCW1 ([facility]) Body weight 268.0 [lb_av] 268.0 [lb_av] eCW1 [facility] Heart rate 84 /min 84 /min MEDENT ([facility]) Diastolic blood pressure 68 mm[Hg] 68 mm[Hg] MEDENT ([facility]) Systolic blood pressure 132 mm[Hg] 132 mm[Hg] M EDENT ([facility]) Body mass index (BMI) [Ratio] 42.4 kg/m2 42.4 k g/m2 MEDENT ([facility]) Body weight 270.50 [lb_av] 270.50 [lb_av] MEDEN T ([facility]) Body height 67 [in_i] 67 [...] [Ratio] 41.5 kg/m2 41.5 k g/m2 MEDENT ([facility] ) Body weight 265.00 [lb_av] 265.00 [lb_av] MEDEN T ([facility] ) Body height 67 [in_i] 67 [in_i] MEDENT ([facility] ) 5'7" Body temperature 97.1 [degF] 97.1 [degF] MEDENT ([facility] ) Diastolic blood pressure 70 mm[Hg] 70 mm[Hg] eCW1 ([facility]) Systolic blood pressure 124 mm[Hg] 124 mm[Hg] e CW1 ([facility]) Body temperature 97.8 [degF] 97.8 [degF] eCW1 ( [facility]) Respiratory rate 20 /min 20 /min eCW1 ([facility]) Heart rate 99 /min 99 /min eCW1 ([facility]) Body mass index (BMI) [Ratio] 41.50 kg/m2 41.50 kg/m2 W1 ([facility]) Body height 67 [in_i] 67 [in_i] eCW1 ([facility]) Body weight 265.0 [lb_av] 265.0 [lb_av] eCW1 ([facility] Body weight 265 [lb_av] 265 [lb_av] AKIRA ([facility]) Body mass index (BMI) [Ratio] 41.5 kg/m2 41.5 k g/m2 AKIRA ([facility]) Body height 67 [in_i] 67 [in_i] AKIRA ([facility]) [place] body weight 135 [lb_av] 135 [lb_av] MEDEN T ([facility]) Body mass index (BMI) [Ratio] 41.5 kg/m2 41.5 k g/m2 MEDENT ([facility]) Body weight 265.00 [lb_av] 265.00 [lb_av] MEDEN T ([facility]) Body height 67 [in_i] 67 [in_i] MEDENT ([facility]) 5'7" Body temperature 97.2 [degF] 97.2 [degF] MEDENT ([facility]) Body surface area Derived from formula 2.28 m2 2.28 m2 MEDENT ([facility]) Body weight 120.204 kg 120.204 [facility] Diastolic blood pressure 76 mm[Hg] 76 mm[Hg] eCW1 ([facility]) Systolic blood pressure 122 mm[Hg] 122 mm[Hg] e CW1 ([facility]) Body temperature 97.2 [degF] 97.2 [degF] eCW1 ( [facility]) Respiratory rate 20 /min 20 /min eCW1 ([facility]) Heart rate 100 /min 100 /min W1 ([facility]) Body mass index (BMI) [Ratio] 41.53 kg/m2 41.53 kg/m2 W1 ([facility]) Body height 67 [in_us] 67 [in_us] eCW1 ([facility]) Body weight Measured 265.2 [lb_av] 265.2 [lb_av ] eCW1 ([facility]) Body weight 265 [lb_av] 265 [lb_av] AKIRA ([facility] ) Body mass index (BMI) [Ratio] 41.5 kg/m2 41.5 k g/m2 AKIRA ([facility] ) Body height 67 [in_i] 67 [in_i] AKIRA ([facility] ) Body weight 265 [lb_av] 265 [lb_av] AKIRA ([facility] ) Body mass index (BMI) [Ratio] 41.5 kg/m2 41.5 k g/m2 AKIRA ([facility]) Body height 67 [in_i] 67 [in_i] AKIRA ([facility]) Diastolic blood pressure 80 mm[Hg] 80 mm[Hg] eCW1 ([facility]) Systolic blood pressure 128 mm[Hg] 128 mm[Hg] e CW1 ([facility]) Body temperature 98.1 [degF] 98.1 [degF] eCW1 ( [facility]) Respiratory rate 20 /min 20 /min eCW1 ([facility]) Heart rate /min eCW1 ([facility]) Body mass index (BMI) [Ratio] 41.25 kg/m2 41.25 kg/m2 W1 ([facility]) Body height 67 [in_us] 67 [in_us] eCW1 ([facility]) Body weight Measured 263.4 [lb_av] 263.4 [lb_av ] eCW1 ([facility]) Heart rate 84 /min 84 /min MEDENT ([facility]) Diastolic blood pressure 70 mm[Hg] 70 mm[Hg] MEDENT ([facility]) Systolic blood pressure 144 mm[Hg] 144 mm[Hg] M EDENT ([facility]) Diastolic blood pressure 72 mm[Hg] 72 mm[Hg] MEDENT ([facility]) Systolic blood pressure 132 mm[Hg] 132 mm[Hg] M EDENT ([facility]) Body mass index (BMI) [Ratio] 42.3 kg/m2 42.3 k g/m2 MEDENT ([facility]) Body weight 270.38 [lb_av] 270.38 [lb_av] MEDEN T ([facility]) Body height 67 [in_i] 67 [in_i] MEDENT ([facility]) 5'7" Heart rate 84 /min 84 /min MEDENT ([facility]) Diastolic blood pressure 72 mm[Hg] 72 mm[Hg] MEDENT ([facility]) Systolic blood pressure 132 mm[Hg] 132 mm[Hg] M EDENT ([facility]) Body mass index (BMI) [Ratio] 42.3 kg/m2 42.3 k g/m2 MEDENT ([facility]) Body weight 270.38 [lb_av] 270.38 [lb_av] MEDEN T ([facility]) Body mass index (BMI) [Ratio] 42.6 kg/m2 42.6 k g/m2 MEDENT ([facility]) Body weight 272.00 [lb_av] 272.00 [lb_av] MEDEN T ([facility]) Body height 67 [in_i] 67 [in_i] MEDENT ([facility]) 5'7" Body temperature 97.4 [degF] 97.4 [degF] MEDENT ([facility] ) Diastolic blood pressure 80 mm[Hg] 80 mm[Hg] eCW1 ([facility]) Systolic blood pressure 130 mm[Hg] 130 mm[Hg] e CW1 ([facility]) Body temperature 97.4 [degF] 97.4 [degF] eCW1 ( [facility]) Respiratory rate 20 /min 20 /min eCW1 ([facility]) Heart rate 101 /min 101 /min eCW1 ([facility]) Body mass index (BMI) [Ratio] 42.57 kg/m2 42.57 kg/m2 W1 ([facility]) Body height 67 [in_us] 67 [in_us] eCW1 ([facility]) Body weight Measured 271.8 [lb_av] 271.8 [lb_av ] eCW1 ([facility]) Diastolic blood pressure 72 mm[Hg] 72 mm[Hg] eCW1 ([facility]) Systolic blood pressure 126 mm[Hg] 126 mm[Hg] e CW1 ([facility]) Body mass index (BMI) [Ratio] 41.94 kg/m2 41.94 kg/m2 W1 ([facility]) Body height 67 [in_us] 67 [in_us] eCW1 ([facility]) Body weight Measured 267.8 [lb_av] 267.8 [lb_av ] eCW1 ([facility]) Body weight 265 [lb_av] 265 [lb_av] AKIRA ([facility]) Systolic blood pressure 144 mm[Hg] 144 mm[Hg] A THENA ([facility]) Body mass index (BMI) [Ratio] 41.5 kg/m2 41.5 k g/m2 AKIRA ([facility]) Body height 67 [in_i] 67 [in_i] AKIRA ([facility]) Diastolic blood pressure 78 mm[Hg] 78 mm[Hg] AKIRA ([facility]) Body weight 265 [lb_av] 265 [lb_av] AKIRA ([facility]) Systolic blood pressure 144 mm[Hg] 144 mm[Hg] A THENA ([facility]) Body mass index (BMI) [Ratio] 41.5 kg/m2 41.5 k g/m2 AKIRA ([facility]) Body height 67 [in_i] 67 [in_i] AKIRA ([facility]) Diastolic blood pressure 78 mm[Hg] 78 mm[Hg] AKIRA ([facility]) Body weight 265 [lb_av] 265 [lb_av] AKIRA ([facility]) Systolic blood pressure 144 mm[Hg] 144 mm[Hg] A THENA ([facility]) Body mass index (BMI) [Ratio] 41.5 kg/m2 41.5 k g/m2 AKIRA ([facility]) Body height 67 [in_i] 67 [in_i] AKIRA ([facility]) Diastolic blood pressure 78 mm[Hg] 78 mm[Hg] AKIRA ([facility]) Body weight 269 [lb_av] 269 [lb_av] AKIRA ([facility]) Systolic blood pressure 140 mm[Hg] 140 mm[Hg] A THENA ([facility]) Body mass index (BMI) [Ratio] 42.1 kg/m2 42.1 k g/m2 AKIRA ([facility]) Body height 67 [in_i] 67 [in_i] AKIRA ([facility]) Diastolic blood pressure 80 mm[Hg] 80 mm[Hg] AKIRA ([facility]) Body weight 269 [lb_av] 269 [lb_av] AKIRA ([facility]) Systolic blood pressure 140 mm[Hg] 140 mm[Hg] A THENA ([facility]) Body mass index (BMI) [Ratio] 42.1 kg/m2 42.1 k g/m2 AKIRA ([facility]) Body height 67 [in_i] 67 [in_i] AKIRA ([facility]) Diastolic blood pressure 80 mm[Hg] 80 mm[Hg] AKIRA ([facility]) Body weight 269 [lb_av] 269 [lb_av] AKIRA ([facility] ) Systolic blood pressure 140 mm[Hg] 140 mm[Hg] A THENA ([facility]) Body mass index (BMI) [Ratio] 42.1 kg/m2 42.1 k g/m2 AKIRA ([facility]) Body height 67 [in_i] 67 [in_i] AKIRA ([facility]) Diastolic blood pressure 80 mm[Hg] 80 mm[Hg] AKIRA ([facility]) Body weight 269 [lb_av] 269 [lb_av] AKIRA ([facility]) Systolic blood pressure 140 mm[Hg] 140 mm[Hg] A THENA ([facility]) Body mass index (BMI) [Ratio] 42.1 kg/m2 42.1 k g/m2 AKIRA ([facility]) Body height 67 [in_i] 67 [in_i] AKIRA ([facility]) Diastolic blood pressure 80 mm[Hg] 80 mm[Hg] AKIRA ([facility]) ID Date Data Source [id number] 11/14/2020 07:40:[address] [facility] Name Value Range Interpretation Code Description Data Source(s) WEIGHT RECORDED 249 lb 249 lb [facility] ID Date Data Source [id number] 08/08/2020 10:52:[address] [facility] Name Value Range Interpretation Code Description Data Source(s) WEIGHT RECORDED 275 lb 275 lb [facility] Body height Measured 67 in 67 in [facility] ID Date Data Source [id number] 03/03/2020 01:00:39 PM [facility] Name Value Range Interpretation Code Description Data Source(s) WEIGHT RECORDED 265 lb 265 lb [facility] Body height Measured 67 in 67 in [facility] ID Date Data Source [id number] 12/20/2019 05:51:18 PM [facility] Name Value Range Interpretation Code Description Data Source(s) WEIGHT RECORDED 265.4 lb 265.4 lb [facility] Body height Measured 67.28 in 67.28 in [facility] ID Date Data Source [id number] 11/09/2019 11:38:28 AM [facility] Name Value Range Interpretation Code Description Data Source(s) WEIGHT RECORDED 278.2 lb 278.2 lb [facility] Body height Measured 67.32 in 67.32 in [facility] Patient Treatment Plan of Care Planned Activity Planned Date Details Description Data Source (s) Stephanie Garcia 300 UNIT/ML Subcutan eous Solution Pen-injector (insulin glargine (2 Unit Dial)) 11/14/2020 12:00:00 AM [facility] levocetirizine dihydrochloride 5 MG Oral Tablet 11/07/2020 12:00:00 AM [facility] Methotrexate 2.5 MG Oral Tablet 09/29/2020 12:00:00 AM [facility] Polymyxin B 32016 UNT/ML / Trimethoprim 1 MG/ML Ophtha lmic Solution [Polytrim] 09/13/2020 12:00:00 AM EST eCW1 ([facility]) Polymyxin B 88202 UNT/ML / Trimethoprim 1 MG/ML Ophtha lmic Solution [Polytrim] 09/13/2020 12:00:00 AM EST eCW1 ([facility]) Unifine Pentips Plus 31G X 5 MM (Insulin Pen Needle) 020 12:00:00 AM [facility] OneTouch Verio w/Device Kit 08/08/2020 12:00:00 AM [facility] 24 HR Metformin hydrochloride 500 MG Extended Release Oral Tablet 07/06/2020 12:00:00 AM [facility]spital Unifine Pentips Plus 31G X 5 MM (Insulin Pen Needle) 020 12:00:00 AM [facility] levocetirizine dihydrochloride 5 MG Oral Tablet 03/07/2020 12:00:00 AM EDT eCW ([facility]) Fexofenadine hydrochloride 180 MG Oral Tablet 03/03/2020 12:00:00 A M EDT eCW ([facility]) Ibuprofen 800 MG Oral Tablet 03/03/2020 12:00:00 AM EDT eCW ([facility]) Triamcinolone Acetonide 55 MCG/ACT 03/03/2020 12:00:00 AM EDT eCW ([facility]) Methotrexate 2.5 MG Oral Tablet 02/25/2020 12:00:00 AM [facility] Folic Acid 1 MG Oral Tablet 02/25/2020 12:00:00 AM [facility] Cheratussin AC 100-10 MG/5ML 02/02/2020 12:00:00 AM EDT eCW ([facility]) Cheratussin AC 100-10 MG/5ML 02/02/2020 12:00:00 AM EDT eCW ([facility]) NasoNeb Nebulizer Replacement - 01/27/2020 12:00:00 AM EDT eC ([facility]) Alcohol Swabs - 01/27/2020 12:00:00 AM EDT eC ([facility]) Nebulizer Air Tube/Plugs - 01/27/2020 12:00:00 AM EDT eCW1 ([facility]) RA Tussin Cough DM Sugar Free 100-10 MG/5ML 01/27/2020 12:00:00 AM EDT eCW1 ([facility]) Flonase Sensimist 27.5 MCG/SPRAY 01/27/2020 12:00:00 AM EDT eC ([facility]) OneTouch Verio w/Device Kit 01/21/2020 12:00:00 AM [facility] Insulin Glargine (2 Unit Dial) 300 UNIT/ ML Subcutaneous Solution Pen-injector (Stephanie Garcia) 01/13/2020 12:00:00 AM [facility] Cefuroxime 500 MG Oral Tablet 01/03/2020 12:00:00 AM EST [facility] ([facility]) 24 HR Oxybutynin chloride 5 MG Extended Release Oral T ablet 12/22/2019 12:00:00 AM EST [facility] ([facility]) 24 HR Oxybutynin chloride 5 MG Extended Release Oral T ablet 12/22/2019 12:00:00 AM EST [facility] ([facility]) 24 HR Oxybutynin chloride 5 MG Extended Release Oral T ablet 12/16/2019 12:00:00 AM EST [facility] ([facility]) 3 ML Insulin Lispro 100 UNT/ML Pen Injector 10/05/2019 12:00:00 AM [facility] Glucagon 1 MG Injection 06/17/2019 12:00:00 AM [facility] 24 HR Metformin hydrochloride 500 MG Extended Release Oral Tablet 09/22/2018 12:00:00 AM [facility] ospital Apixaban (ELIQUIS PO) [facility] Furosemide 40 MG Oral Tablet [facility] metaxalone 800 MG Oral Tablet [facility] Levofloxacin 750 MG Oral Tablet [facility] OneTouch Verio test strips A [facility] ([facility]) OneTouch Verio Flex Meter AT [facility] ([facility]) OneTouch Delica Plus Lancet 33 gauge AKIRA ([facility]) Ondansetron 4 MG Disintegrating Oral Tablet AKIRA ([facility]) NITROFURANTOIN, MACROCRYSTALS 25 MG / Ni trofurantoin, Monohydrate 75 MG Oral Capsule AKIRA ([facility]) 24 HR Metformin hydrochloride 500 MG Extended Release Oral Tablet AKIRA ([facility]) Glucagon 1 MG Injection ATHE NA ([facility]) ciclopirox 80 MG/ML Topical Solution AKIRA ([facility]) Cephalexin 500 MG Oral Capsule AKIRA ([facility]) Cefuroxime 500 MG Oral Tablet AKIRA ([facility]) buspirone hydrochloride 10 MG Oral Tablet AKIRA ([facility]) Amoxicillin 875 MG / Clavulanate 125 MG Oral Tablet AKIRA ([facility]) Afluria Qd 2018- (36 mos up)(PF)60 mcg (15 mcg x4)/0.5 mL IM syri nge AKIRA ([facility]) sure comfort mis 31gx3/16 AT [facility] ([facility]) Ondansetron 4 MG Disintegrating Oral Tablet AKIRA ([facility]) NITROFURANTOIN, MACROCRYSTALS 25 MG / Ni trofurantoin, Monohydrate 75 MG Oral Capsule AKIRA ([facility]) 24 HR Metformin hydrochloride 500 MG Extended Release Oral Tablet AKIRA ([facility]) Afluria Qd 2019 (36 mos up)(PF)60 mcg (15 mcg x4)/0.5 mL IM syri nge AKIRA ([facility]) Unifine Pentips Plus 31 gauge x 3/16" needle AKIRA ([facility]) sure comfort mis 31gx3/16 AT [facility] ([facility]) Glucagon 1 MG Injection ATHE NA ([facility]) ciclopirox 80 MG/ML Topical Solution AKIRA ([facility]) Cephalexin 500 MG Oral Capsule AKIRA ([facility]) sure comfort mis 31gx3/16 AT [facility] ([facility]) Ondansetron 4 MG Disintegrating Oral Tablet AKIRA ([facility]) NITROFURANTOIN, MACROCRYSTALS 25 MG / Ni trofurantoin, Monohydrate 75 MG Oral Capsule AKIRA ([facility]) 24 HR Metformin hydrochloride 500 MG Extended Release Oral Tablet AKIRA ([facility]) Glucagon 1 MG Injection ATHE NA ([facility]) ciclopirox 80 MG/ML Topical Solution AKIRA ([facility]) Cephalexin 500 MG Oral Capsule AKIRA ([facility]) Afluria Qd 2019 (36 mos up)(PF)60 mcg (15 mcg x4)/0.5 mL IM syri nge AKIRA ([facility]) Unifine Pentips 31 gauge x 3/16" needle AKIRA ([facility]) sure comfort mis 31gx3/16 AT [place] ([facility]) Ondansetron 4 MG Disintegrating Oral Tablet AKIRA ([facility]) NITROFURANTOIN, MACROCRYSTALS 25 MG / Ni trofurantoin, Monohydrate 75 MG Oral Capsule AKIRA ([facility]) 24 HR Metformin hydrochloride 500 MG Extended Release Oral Tablet AKIRA ([facility]) Glucagon 1 MG Injection ATHE NA ([facility]) ciclopirox 80 MG/ML Topical Solution AKIRA ([facility]) Cephalexin 500 MG Oral Capsule AKIRA ([facility]) buspirone hydrochloride 10 MG Oral Tablet AKIRA ([facility])
[2020-11-26 17:32] LABS: BASO # 0.1 10^3/uL (0.0-0.2); BASO % 0.8 % (0.0-1.0); EOS # 0.1 10^3/uL (0.0-0.5); EOS % 1.5 % (0.0-3.0); HEMOGLOBIN 12.8 g/dl (12.0-15.5); LYMPH % 47.9 % (24.0-44.0); MEAN CORPUSCULAR HEMOGLOBIN 28.6 pg (27.0-33.0); MEAN CORPUSCULAR HGB CONC 32.8 g/dl (32.0-36.5); MEAN CORPUSCULAR VOLUME 87.1 fl (80.0-96.0); MONO # 0.3 10^3/uL (0.0-0.8); MONO % 3.9 % (0.0-5.0); NEUTROPHILS # 3.8 10^3/uL (1.5-8.5); NEUTROPHILS % 45.7 % (36.0-66.0); PLATELET COUNT, AUTOMATED 285 10^3/uL (150-450); RED BLOOD COUNT 4.48 10^6/uL (4.00-5.40); WHITE BLOOD COUNT 8.4 10^3/uL (4.0-10.0)
--- NOTE | 2020-11-26 17:35 | REP ---
INDICATION: CHEST PAIN. COMPARISON: 01/27/2020. TECHNIQUE: SINGLE PORTABLE AP VIEW OF THE CHEST WAS PERFORMED. FINDINGS: THERE IS NO ACUTE INFILTRATE OR PULMONARY EDEMA. LUNGS ARE CLEAR. HEART IS NOT SIGNIFICANTLY ENLARGED. MEDIASTINAL SILHOUETTE IS UNREMARKABLE. THE VISUALIZED OSSEOUS STRUCTURES ARE INTACT. IMPRESSION: NO ACUTE PULMONARY DISEASE. <Electronically signed by Shawn Aguirre > 11/26/20 1229
[2020-11-26 17:44] LABS: INR 2.63; PROTHROMBIN TIME 28.7 SECONDS (12.5-14.3)
[2020-11-26 17:45] LABS: PARTIAL THROMBOPLASTIN TIME 43.1 SECONDS (24.2-38.5)
[2020-11-26 17:53] LABS: BLOOD UREA NITROGEN 14 MG/DL (7-18); CARBON DIOXIDE LEVEL 27 MEQ/L (21-32); CHLORIDE LEVEL 106 MEQ/L (98-107); CREATININE FOR GFR 0.95 MG/DL (0.55-1.30); GLOMERULAR FILTRATION RATE > 60.0 (>51); GLUCOSE, FASTING 131 MG/DL (70-100); POTASSIUM SERUM 3.9 MEQ/L (3.5-5.1); SODIUM LEVEL 140 MEQ/L (136-145)
[2020-11-26] MEDS ORDERED: NS 1,000 ML IV ONE (21:30)
[2020-11-26 23:45] VITALS: BP 150/60
--- NOTE | 2020-11-27 08:53 | ECGEPIP ---
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
--- NOTE | 2020-11-27 09:13 | ECGEPIP ---
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
== END 2020-11-27 00:09 | disposition home or self-care (01) ==
LOC: M ED 16:43
DX: R07.89 Other chest pain (principal); M25.512 Pain in left shoulder; E11.9 Type 2 diabetes mellitus without complications; I10 Essential (primary) hypertension; E78.5 Hyperlipidemia, unspecified; J45.909 Unspecified asthma, uncomplicated; I25.2 Old myocardial infarction; Z79.01 Long term (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 anticoagulants; Z79.4 Long term (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 insulin; Z79.51 Long term (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 inhaled steroids; Z79.899 Other long term (current) drug therapy; Z88.8 Allergy status to other drugs, medicaments and biological substances; Z91.040 Latex allergy status
CPT/HCPCS: 71045; 80048; 84484; 85025; 85610; 85730; 93005; 93041; 94760; 96361; 96374; 96376; 99285; J2405

== ENCOUNTER → 2021-02-16 | Outpatient (REF) | payer MEDICARE, MEDICAID ==
[2021-02-16 10:27] LABS: BASO # 0.1 10^3/uL (0.0-0.2); BASO % 1.6 % (0.0-1.0); EOS # 0.2 10^3/uL (0.0-0.5); EOS % 3.1 % (0.0-3.0); HEMOGLOBIN 12.5 g/dl (12.0-15.5); LYMPH % 44.1 % (24.0-44.0); MEAN CORPUSCULAR HEMOGLOBIN 28.8 pg (27.0-33.0); MEAN CORPUSCULAR HGB CONC 32.1 g/dl (32.0-36.5); MEAN CORPUSCULAR VOLUME 89.9 fl (80.0-96.0); MONO # 0.4 10^3/uL (0.0-0.8); MONO % 5.4 % (2.0-8.0); NEUTROPHILS # 3.1 10^3/uL (1.5-8.5); NEUTROPHILS % 45.5 % (36.0-66.0); PLATELET COUNT, AUTOMATED 301 10^3/uL (150-450); RED BLOOD COUNT 4.34 10^6/uL (4.00-5.40); WHITE BLOOD COUNT 6.9 10^3/uL (4.0-10.0)
[2021-02-16 11:01] LABS: ALBUMIN 3.6 GM/DL (3.2-5.2); ALT/SGPT 18 U/L (12-78); BILIRUBIN,TOTAL 0.5 MG/DL (0.2-1.0); BLOOD UREA NITROGEN 15 MG/DL (7-18); CALCIUM LEVEL 9.1 MG/DL (8.5-10.1); CARBON DIOXIDE LEVEL 29 MEQ/L (21-32); CHLORIDE LEVEL 107 MEQ/L (98-107); CHOLESTEROL LEVEL 199 MG/DL (<200); CHOLESTEROL RISK RATIO 3.618 (<5); CREATININE FOR GFR 0.66 MG/DL (0.55-1.30); FOLATE 5.9 NG/ML; GLOMERULAR FILTRATION RATE > 60.0 (>51); GLUCOSE, FASTING 99 MG/DL (70-100); HDL CHOLESTEROL 55 MG/DL (>40); LDL CHOLESTEROL 124 MG/DL (<100); MAGNESIUM LEVEL 2.1 MG/DL (1.8-2.4); NON-HDL-C 144 MG/DL; POTASSIUM SERUM 4.7 MEQ/L (3.5-5.1); SODIUM LEVEL 139 MEQ/L (136-145); TRIGLYCERIDES LEVEL 100 MG/DL (<150); VITAMIN B12 LEVEL 469 PG/ML
== END ==
LOC: M SFHCPLAZ 09:02
PROVIDERS: ATTEND Internal Medicine
DX: E11.51 Type 2 diabetes mellitus with diabetic peripheral angiopathy without gangrene (principal); E78.5 Hyperlipidemia, unspecified; I10 Essential (primary) hypertension; F32.9 Major depressive disorder, single episode, unspecified; Z86.718 Personal history of other venous thrombosis and embolism; Z98.84 Bariatric surgery status

== ENCOUNTER → 2021-03-17 | Outpatient (CLI) | payer MEDICARE, MEDICAID ==
[~2021-03-17] MED LIST changes: +LEVOTAB10 PO; +OMEP-218 PO; +WARF-21 PO
== END ==
LOC: M LABSMTC 08:40
PROVIDERS: ATTEND Anesthesiology
DX: Z01.812 Encounter for preprocedural laboratory examination (principal); Z11.52 Encounter for screening for COVID-19

== ENCOUNTER 2021-03-22 13:16 | Day surgery (SDC) | payer MEDICARE, MEDICAID ==
[~2021-03-22] VITALS: Ht 170.2 cm; Wt 117.9 kg
[~2021-03-22 13:16] MED LIST changes: +BACTDSTA PO; +NS 1,000 ML IV ONE; -SULF1TAB93 PO
[2021-03-22] MEDS ORDERED: fentaNYL 100 MCG/2 ML INJECTION (J3010) As Ordered ONE (15:04)
[2021-03-22] MEDS ORDERED: propofoL 200 MG/20 ML VIAL As Ordered ONE ×2 (15:04→15:31)
--- NOTE | 2021-03-22 15:29 | ROOR ---
Patient Name: Ayaka Levine Procedure Date: 03/22/2021 3:13 PM Date of : 1970 Age: 50 Room: [facility] Gender: Female Note Status: Finalized Procedure: Upper GI endoscopy Indications: Dysphagia Providers: Basilio March MD Referring MD: Agustin Boogie MD Requesting Provider: Medicines: Monitored Anesthesia Care Complications: No immediate complications. Procedure: Pre-Anesthesia Assessment: - The heart rate, respiratory rate, oxygen saturations, blood pressure, adequacy of pulmonary ventilation, and response to care were monitored throughout the procedure. The Endoscope was introduced through the mouth, and advanced to the second part of duodenum. The upper GI endoscopy was accomplished without difficulty. The patient tolerated the procedure well. Findings: Mild inflammation was found in the gastric antrum. Biopsies were taken with a cold forceps for histology. Evidence of a sleeve gastrectomy was found in the gastric body. This was characterized by healthy appearing mucosa. The exam was otherwise without abnormality. Impression: - Mild gastritis. Biopsied. - A sleeve gastrectomy was found, characterized by healthy appearing mucosa. - The examination was otherwise normal. Recommendation: - Observe patient's clinical course. - Continue present medications. - No ibuprofen, naproxen, or other non-steroidal anti-inflammatory drugs. Procedure Code(s): --- Professional --- 84703, Esophagogastroduodenoscopy, flexible, transoral; with biopsy, single or multiple Diagnosis Code(s): --- Professional --- K29.70, Gastritis, unspecified, without bleeding Z98.84, Bariatric surgery status R13.10, Dysphagia, unspecified CPT copyright 2019 [employer]. All rights reserved. The codes documented in this report are preliminary and upon certified medical coder review may be revised to meet current compliance requirements. Basilio March MD Basilio March MD 03/22/2021 3:28:36 PM Electronically signed by Basilio March MD Number of Addenda: 0 Note Initiated On: 03/22/2021 3:13 PM Estimated Blood Loss: Estimated blood loss: none.
--- NOTE | 2021-03-22 15:50 | ROOR ---
Patient Name: Ayaka Levine Procedure Date: 03/22/2021 3:14 PM Date of : 1970 Age: 50 Room: [facility] Gender: Female Note Status: Finalized Procedure: Colonoscopy Indications: High risk colon cancer surveillance: Personal history of colonic polyps Providers: Basilio March MD Referring MD: Agustin Boogie MD Requesting Provider: Medicines: Monitored Anesthesia Care Complications: No immediate complications. Procedure: Pre-Anesthesia Assessment: - The heart rate, respiratory rate, oxygen saturations, blood pressure, adequacy of pulmonary ventilation, and response to care were monitored throughout the procedure. The Colonoscope was introduced through the anus and advanced to the terminal ileum, with identification of the appendiceal orifice and IC valve. The colonoscopy was performed without difficulty. The patient tolerated the procedure well. The quality of the bowel preparation was good. Findings: The perianal and digital rectal examinations were normal. Three sessile polyps were found in the sigmoid colon. The polyps were diminutive in size. These polyps were removed with a cold snare. Resection and retrieval were complete. To prevent bleeding after the polypectomy, one hemostatic clip was successfully placed. The exam was otherwise without abnormality on direct and retroflexion views. Impression: - Three diminutive polyps in the sigmoid colon, removed with a cold snare. Resected and retrieved. Clip was placed. - The examination was otherwise normal on direct and retroflexion views. Recommendation: - Repeat colonoscopy in 5 years for surveillance. Procedure Code(s): --- Professional --- 26409, Colonoscopy, flexible; with removal of tumor(s), polyp(s), or other lesion(s) by snare technique Diagnosis Code(s): --- Professional --- K63.5, Polyp of colon Z86.010, Personal history of colonic polyps CPT copyright 2019 [employer]. All rights reserved. The codes documented in this report are preliminary and upon independent living advisor review may be revised to meet current compliance requirements. Basilio March MD Basilio March MD 03/22/2021 3:50:35 PM Electronically signed by Basilio March MD Number of Addenda: 0 Note Initiated On: 03/22/2021 3:14 PM Estimated Blood Loss: Estimated blood loss: none.
[2021-03-22 16:06] VITALS: BP 185/86
== END 2021-03-22 16:21 | disposition home or self-care (01) ==
LOC: M OPP 13:16
PROVIDERS: ATTEND Internal Medicine Gastroenterology
DX: Z86.010 Personal history of colon polyps (principal); Z09 Encounter for follow-up examination after completed treatment for conditions other than malignant neoplasm; K63.5 Polyp of colon; K29.70 Gastritis, unspecified, without bleeding; Z98.84 Bariatric surgery status; R13.10 Dysphagia, unspecified; R60.9 Edema, unspecified; I25.2 Old myocardial infarction; Z79.4 Long term (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 insulin; Z79.01 Long term (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 anticoagulants; Z79.899 Other long term (current) drug therapy; Z80.0 Family history of malignant neoplasm of digestive organs; Z88.5 Allergy status to narcotic agent; Z91.018 Allergy to other foods; Z92.21 Personal history of antineoplastic chemotherapy; Z86.718 Personal history of other venous thrombosis and embolism
CPT/HCPCS: 43239; 45380; 88305; J3010

== ENCOUNTER → 2021-04-30 | Outpatient (REF) | payer MEDICARE, MEDICAID ==
[~2021-04-30] MED LIST changes: -DOXY100C37 PO; +DOXY1CAP62 PO; +FERR324T21 PO; -NS 1,000 ML IV ONE; +OMEP40CA4 PO; -OMEP40CA97 PO
== END ==
LOC: M LAB REF 13:45
PROVIDERS: ATTEND Physician Assistant
DX: R21 Rash and other nonspecific skin eruption (principal); D23.39 Other benign neoplasm of skin of other parts of face; D23.5 Other benign neoplasm of skin of trunk
CPT/HCPCS: 11102; 11104; 11105; 88300; G0463

== ENCOUNTER → 2021-05-04 | Outpatient (CLI) | payer MEDICARE, MEDICAID ==
[~2021-05-04] MED LIST changes: -FERR324T21 PO
--- NOTE | 2021-05-04 11:41 | REP ---
INDICATION: UNILATERAL PRIMARY OSTEOARTHRITIS. COMPARISON: None. TECHNIQUE: Five views FINDINGS: The compartments are symmetric and relatively well maintained. There is no acute fracture, dislocation, or subluxation. IMPRESSION: Within normal limits <Electronically signed by Jesús Hawley > 05/04/21 [id number]
== END ==
LOC: M SOG 10:32
PROVIDERS: ATTEND Orthopaedic Surgery Sports Medicine
DX: M17.12 Unilateral primary osteoarthritis, left knee (principal)

== ENCOUNTER → 2021-05-09 | Outpatient (CLI) | payer MEDICARE, MEDICAID ==
[~2021-05-09] MED LIST changes: +FERR324T21 PO
--- NOTE | 2021-05-09 08:34 | REPMRS ---
Patient History The patient states she has not had a clinical breast exam in over a year. Patient has history of other cancer at age 37. Family history of endometrial cancer under age 50 in maternal grandmother, breast cancer under age 50 in maternal aunt, breast cancer under age 50 in maternal aunt, breast cancer under age 50 in maternal aunt, endometrial cancer under age 50 in maternal aunt, unknown cancer under age 50 in maternal cousin, unknown cancer under age 50 in maternal cousin, endometrial cancer under age 50 in maternal cousin, endometrial cancer under age 50 in maternal cousin, breast cancer under age 50 in maternal cousin, breast cancer under age 50 in maternal cousin, unknown cancer under age 50 in maternal aunt, unknown cancer under age 50 in maternal uncle, unknown cancer under age 50 in maternal uncle, ovarian cancer at age 70 in paternal aunt. Took hormonal contraceptives for 11 years. Patient states no breast complaints today. Patient has signed MRS History Sheet. Digital Woman Screen Mammo: May 09, 2021 - Exam #: [id number] Bilateral CC and MLO view(s) were taken. Technologist: Sandra Rose, Technologist Prior study comparison: May 02, 2020, bilateral digital woman screen mammo performed at [facility]. December 31, 2018, bilateral digital mammo screening bilat, performed at [facility]. FINDINGS: The breast tissue is almost entirely fat. Screening. Digital screening (2D) mammography was performed bilaterally in the CC and MLO projections. Additionally, breast tomosynthesis (3D mammography) was performed bilaterally in the CC and MLO projections. Todays exam was compared to the prior exam/exams. By history, the patient has no complaints of a palpable breast abnormality or other significant breast complaints. The breasts are unchanged in size and shape. There are no lazaro-soft tissue densities or spiculated masses. There is no internal architectural distortion. There are no suspicious lazaro-calcific clusters. Skin thickening or nipple retraction is not present. IMPRESSION: BI-RADS Category 2- Benign Findings. There is no evidence of malignant alteration of the breasts. Followup examination recommended in one year. The Volpara volumetric breast density category is A, the breasts are almost entirely fatty. This mammogram was read with the assistance of [employer],an FDA approved computer aided detection system for mammography. The lifetime Tyrer-Cuzick score is 10.8 % Negative x-ray reports should not delay surgical consultation if a dominant or clinically suspicious mass is present. Not all breast cancers can be identified by mammography. Therefore, we recommend that you continue to perform regular breast self-examination and physical examination and then promptly contact your physician of any concerns or changes. Adenosis and dense breasts may obscure an underlying neoplasm. Assessment: BI-RADS/ACR category 2 mammogram. Benign Findings. Recommendation Routine screening mammogram of both breasts in 1 year. Electronically Signed By: Jesús Hawley DO 05/09/21 0813
== END ==
LOC: M WHC 07:12
PROVIDERS: ATTEND Internal Medicine
DX: Z12.31 Encounter for screening mammogram for malignant neoplasm of breast (principal); Z80.8 Family history of malignant neoplasm of other organs or systems; Z92.0 Personal history of contraception

== ENCOUNTER 2021-05-14 16:27 | Emergency (ER) | payer MEDICARE, MEDICAID ==
[~2021-05-14] VITALS: Ht 172.7 cm; Wt 120.8 kg
[~2021-05-14 16:27] MED LIST changes: -CEFD1CAP8 PO; +CEFD300C41 PO; +DOXY-443 PO; -DOXY1CAP62 PO; -FERR324T21 PO; -FLUC150T PO; +FLUC150T9 PO; +LOSA50TA28 PO; -LOSA50TA88 PO; +OMEP-173 PO; -OMEP-218 PO
[2021-05-14 19:54] LABS: BLOOD UREA NITROGEN 15 MG/DL (7-18); CALCIUM LEVEL 8.7 MG/DL (8.5-10.1); CARBON DIOXIDE LEVEL 30 MEQ/L (21-32); CHLORIDE LEVEL 105 MEQ/L (98-107); CREATININE FOR GFR 0.74 MG/DL (0.55-1.30); GLOMERULAR FILTRATION RATE > 60.0 (>51); GLUCOSE, FASTING 68 MG/DL (70-100); MAGNESIUM LEVEL 2.3 MG/DL (1.8-2.4); PHOSPHORUS LEVEL 3.8 MG/DL (2.5-4.9); POTASSIUM SERUM 3.5 MEQ/L (3.5-5.1); SODIUM LEVEL 139 MEQ/L (136-145)
[2021-05-14 21:08] LABS: CPK CREATINE PHOSPHOKINASE 81 U/L (26-192); FERRITIN 72 NG/ML (8-252); FREE T4 0.88 NG/DL (0.76-1.46); IRON (FE) 41 UG/DL (50-170); MB/CK RELATIVE INDEX 2.47 (< OR =4); PERCENT SATURATION 12.2 % (13.2-45.0); TOTAL IRON BINDING CAPACITY 336 UG/DL (250-450); TROPONIN I < 0.02 NG/ML (< 0.10)
[2021-05-14 21:11] LABS: VITAMIN B12 LEVEL 403 PG/ML (247-911)
[2021-05-14 21:17] LABS: BASO # 0.1 10^3/uL (0.0-0.2); EOS # 0.2 10^3/uL (0.0-0.5); EOS % 1.5 % (0.0-3.0); HEMATOCRIT 42.9 % (36.0-47.0); HEMOGLOBIN 13.9 g/dl (12.0-15.5); LYMPH # 3.9 10^3/uL (1.5-5.0); LYMPH % 36.4 % (24.0-44.0); MEAN CORPUSCULAR HEMOGLOBIN 29.4 pg (27.0-33.0); MEAN CORPUSCULAR HGB CONC 32.4 g/dl (32.0-36.5); MEAN CORPUSCULAR VOLUME 90.7 fl (80.0-96.0); MONO # 0.6 10^3/uL (0.0-0.8); MONO % 5.4 % (2.0-8.0); NEUTROPHILS % 55.4 % (36.0-66.0); PLATELET COUNT, AUTOMATED 293 10^3/uL (150-450); RED BLOOD COUNT 4.73 10^6/uL (4.00-5.40); WHITE BLOOD COUNT 10.8 10^3/uL (4.0-10.0)
[2021-05-14] MEDS ORDERED: FERR324T21 PO (22:10)
[2021-05-14 22:17] VITALS: BP 158/67
== END 2021-05-14 22:21 | disposition home or self-care (01) ==
LOC: M ED 16:27
DX: E61.1 Iron deficiency (principal); M62.838 Other muscle spasm; E11.9 Type 2 diabetes mellitus without complications; I10 Essential (primary) hypertension; J45.909 Unspecified asthma, uncomplicated; E78.5 Hyperlipidemia, unspecified; K21.9 Gastro-esophageal reflux disease without esophagitis; G62.9 Polyneuropathy, unspecified; Z79.899 Other long term (current) drug therapy; Z79.4 Long term (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 insulin; Z79.01 Long term (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 anticoagulants; Z88.5 Allergy status to narcotic agent; Z91.018 Allergy to other foods; Z91.040 Latex allergy status; Z87.891 Personal history of nicotine dependence

== ENCOUNTER → 2021-06-18 | Outpatient (CLI) | payer MEDICARE, MEDICAID ==
[~2021-06-18] MED LIST changes: +CEFD1CAP8 PO; -CEFD300C41 PO; -DOXY-443 PO; +DOXY1CAP62 PO; +FERR324T21 PO; +FLUC150T PO; -FLUC150T9 PO; -LOSA50TA28 PO; +LOSA50TA88 PO; -OMEP-173 PO; +OMEP-218 PO
== END ==
LOC: M LABSMTC 11:41
PROVIDERS: ATTEND Pediatrics
DX: Z20.822 Contact with and (suspected) exposure to COVID-19 (principal)
CPT/HCPCS: C9803; U0003

== ENCOUNTER → 2021-06-21 | Outpatient (CLI) | payer MEDICARE, MEDICAID ==
--- NOTE | 2021-06-21 12:17 | REP ---
INDICATION: BILATERAL HIP PAIN. COMPARISON: None. TECHNIQUE: Two views each hip FINDINGS: Mild degenerative changes of both hips. Slight narrowing of both hip joints. No fracture or dislocation. No soft tissue abnormality. IMPRESSION: Mild degenerative changes of both hips. No fracture. <Electronically signed by David Hahn > 06/21/21 [id number]
== END ==
LOC: M SOG 11:27
PROVIDERS: ATTEND Orthopaedic Surgery Adult Reconstructive Orthopaedic Surgery
DX: M25.551 Pain in right hip (principal); M25.552 Pain in left hip

== ENCOUNTER 2021-07-11 19:14 | Emergency (ER) | payer MEDICARE, MEDICAID ==
[~2021-07-11] VITALS: Ht 170.2 cm; Wt 120.9 kg
[2021-07-11 22:18] VITALS: BP 142/80
--- NOTE | 2021-07-11 23:20 | REPVR ---
PROCEDURE INFORMATION: Exam: XR Right Wrist Exam date and time: 07/11/2021 10:57 PM Age: 51 years old Clinical indication: Injury or trauma; Fall; Swelling (edema); Wrist; Right TECHNIQUE: Imaging protocol: XR Right wrist. Views: 3 or more views. COMPARISON: CR Wrist, complete RIGHT 12/28/2019 2:25 PM FINDINGS: Bones/joints: Normal. No fracture. Soft tissues: Normal. IMPRESSION: Negative right wrist. Electronically signed by: Franklyn Wyatt On 07/11/2021 23:19:11 PM
--- NOTE | 2021-07-11 23:23 | REPVR ---
PROCEDURE INFORMATION: Exam: XR Right Knee Exam date and time: 07/11/2021 10:57 PM Age: 51 years old Clinical indication: Injury or trauma; Fall; Swelling (edema); Knee; Right TECHNIQUE: Imaging protocol: XR Right knee. Views: 4 or more views. COMPARISON: CR KNEE COMPLETE 05/04/2021 10:32 AM FINDINGS: Bones/joints: Mild joint effusion. No fracture. Early degenerative change at the patellofemoral joint. Soft tissues: Normal. IMPRESSION: 1. Mild joint effusion. 2. Otherwise negative right knee. No fracture. Electronically signed by: Franklyn Wyatt On 07/11/2021 23:22:34 PM
== END 2021-07-11 23:56 | disposition home or self-care (01) ==
LOC: M ED 19:14
DX: S80.01XA Contusion of right knee, initial encounter (principal); S63.91XA Sprain of unspecified part of right wrist and hand, initial encounter; W01.0XXA Fall on same level from slipping, tripping and stumbling without subsequent striking against object, initial encounter; Y92.009 Unspecified place in unspecified non-institutional (private) residence as the place of occurrence of the external cause; Y93.89 Activity, other specified; Y99.8 Other external cause status; E11.9 Type 2 diabetes mellitus without complications; I10 Essential (primary) hypertension; E78.5 Hyperlipidemia, unspecified; K21.9 Gastro-esophageal reflux disease without esophagitis; Z79.4 Long term (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 insulin; Z79.01 Long term (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 anticoagulants; Z79.899 Other long term (current) drug therapy; Z88.5 Allergy status to narcotic agent; Z91.040 Latex allergy status; Z91.018 Allergy to other foods; Z86.718 Personal history of other venous thrombosis and embolism

== ENCOUNTER → 2021-08-13 | Outpatient (CLI) | payer MEDICARE, MEDICAID ==
[~2021-08-13] MED LIST changes: +BUPIVACAINE HCL 0.5% 10ML VIAL As Ordered ONE; +DOXY-443 PO; -DOXY1CAP62 PO; +ISOVUE-300 61% 50ML VIAL As Ordered ONE; +LIDOCAINE 1% MDV 20ML VIAL As Ordered ONE; +methylPREDNISolone 80MG/ML SUSP 1ML VIAL (J1040) As Ordered ONE
--- NOTE | 2021-08-13 16:05 | REP ---
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 COMPARISON: None. TECHNIQUE: The procedure was performed under the direct supervision of Dr. Sylvester. The benefits and risks including but not limited to pain infection and bleeding and anaphylaxis were explained to the patient and informed consent was obtained. The left femoral neck was localized using fluoroscopic guidance. The skin was prepped and draped in a sterile fashion. 1% lidocaine was used as a local anesthetic. Using fluoroscopic guidance, and last image hold technology, a 22-gauge spinal needle was inserted and advanced to the femoral neck. 0.5 ml of Isovue-300 was injected to verify placement. Four ml of a solution containing 3 ml of 0.5% Marcaine and 1 mL of Depo-Medrol 80 mg was injected. The needle was then removed. The patient tolerated the procedure well and there were no immediate complications. Less than 6 seconds of fluoro time was utilized for this procedure. FINDINGS: None IMPRESSION: Fluoro guidance for left hip injection. <Electronically signed by Tripp Menjivar > 08/13/21 1533 <Electronically signed by Carlos Sylvester > 08/13/21 160
== END ==
LOC: M RADPRO 10:06
PROVIDERS: ATTEND Orthopaedic Surgery Adult Reconstructive Orthopaedic Surgery
DX: M16.0 Bilateral primary osteoarthritis of hip (principal)
CPT/HCPCS: 20610; 77002; 85610; G0463; J1040; Q9967

== ENCOUNTER → 2021-09-03 | Outpatient (CLI) | payer MEDICARE, MEDICAID ==
[~2021-09-03] MED LIST changes: -BUPIVACAINE HCL 0.5% 10ML VIAL As Ordered ONE; -ISOVUE-300 61% 50ML VIAL As Ordered ONE; -LIDOCAINE 1% MDV 20ML VIAL As Ordered ONE; -methylPREDNISolone 80MG/ML SUSP 1ML VIAL (J1040) As Ordered ONE
[2021-09-03 11:28] LABS: ALBUMIN 3.5 GM/DL (3.2-5.2); BILIRUBIN,DIRECT 0.1 MG/DL (0.0-0.2); BILIRUBIN,TOTAL 0.4 MG/DL (0.2-1.0); CHOLESTEROL RISK RATIO 2.803 (<5); TOTAL PROTEIN 7.1 GM/DL (6.4-8.2)
== END ==
LOC: M PLALAB 08:25
PROVIDERS: ATTEND Internal Medicine Cardiovascular Disease
DX: I25.10 Atherosclerotic heart disease of native coronary artery without angina pectoris (principal); E78.5 Hyperlipidemia, unspecified; Z79.899 Other long term (current) drug therapy

== ENCOUNTER → 2021-09-03 | Outpatient (CLI) | payer MEDICARE, MEDICAID ==
[2021-09-03 10:29] LABS: BASO # 0.1 10^3/uL (0.0-0.2); BASO % 0.9 % (0.0-1.0); EOS # 0.1 10^3/uL (0.0-0.5); EOS % 1.9 % (0.0-3.0); HEMATOCRIT 40.9 % (36.0-47.0); HEMOGLOBIN 13.3 g/dl (12.0-15.5); MEAN CORPUSCULAR HEMOGLOBIN 28.9 pg (27.0-33.0); MEAN CORPUSCULAR HGB CONC 32.5 g/dl (32.0-36.5); MEAN CORPUSCULAR VOLUME 88.7 fl (80.0-96.0); MONO # 0.4 10^3/uL (0.0-0.8); MONO % 4.8 % (2.0-8.0); NEUTROPHILS # 3.9 10^3/uL (1.5-8.5); PLATELET COUNT, AUTOMATED 280 10^3/uL (150-450); RED BLOOD COUNT 4.61 10^6/uL (4.00-5.40); WHITE BLOOD COUNT 7.5 10^3/uL (4.0-10.0)
[2021-09-03 11:06] LABS: ERYTHROCYTE SEDIMENTATION RATE 17 mm/hr (0-30)
[2021-09-03 11:19] LABS: ALBUMIN 3.4 GM/DL (3.2-5.2); ALT/SGPT 22 U/L (12-78); BILIRUBIN,DIRECT 0.1 MG/DL (0.0-0.2); BILIRUBIN,TOTAL 0.4 MG/DL (0.2-1.0); CREATININE FOR GFR 0.81 MG/DL (0.55-1.30); GLOMERULAR FILTRATION RATE > 60.0 (>51); TOTAL 25(OH) VITAMIN D 23.1 NG/ML (30.0-100.0); TOTAL PROTEIN 7.1 GM/DL (6.4-8.2)
== END ==
LOC: M PLALAB 08:20
PROVIDERS: ATTEND Internal Medicine Rheumatology
DX: M05.80 Other rheumatoid arthritis with rheumatoid factor of unspecified site (principal); Z51.81 Encounter for therapeutic drug level monitoring; Z79.899 Other long term (current) drug therapy

== ENCOUNTER → 2021-09-03 | Outpatient (CLI) | payer MEDICARE, MEDICAID ==
[2021-09-03 11:00] LABS: HEMOGLOBIN A1c 9.6 %
[2021-09-03 11:18] LABS: ALBUMIN 3.4 GM/DL (3.2-5.2); ALT/SGPT 24 U/L (12-78); BILIRUBIN,TOTAL 0.4 MG/DL (0.2-1.0); BLOOD UREA NITROGEN 9 MG/DL (7-18); CALCIUM LEVEL 8.8 MG/DL (8.5-10.1); CARBON DIOXIDE LEVEL 31 MEQ/L (21-32); CHLORIDE LEVEL 107 MEQ/L (98-107); CHOLESTEROL LEVEL 154 MG/DL (<200); CREATININE FOR GFR 0.85 MG/DL (0.55-1.30); FREE T4 1.09 NG/DL (0.76-1.46); GLOMERULAR FILTRATION RATE > 60.0 (>51); GLUCOSE, FASTING 135 MG/DL (70-100); HDL CHOLESTEROL 55 MG/DL (>40); LDL CHOLESTEROL 76 MG/DL (<100); NON-HDL-C 99 MG/DL; POTASSIUM SERUM 4.4 MEQ/L (3.5-5.1); SODIUM LEVEL 140 MEQ/L (136-145); TOTAL 25(OH) VITAMIN D 24.2 NG/ML (30.0-100.0); TOTAL PROTEIN 7.2 GM/DL (6.4-8.2); TRIGLYCERIDES LEVEL 115 MG/DL (<150)
== END ==
LOC: M PLALAB 08:28
PROVIDERS: ATTEND Internal Medicine Endocrinology, Diabetes & Metabolism
DX: E11.65 Type 2 diabetes mellitus with hyperglycemia (principal); E55.9 Vitamin D deficiency, unspecified; Z79.4 Long term (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 insulin; I25.10 Atherosclerotic heart disease of native coronary artery without angina pectoris; E78.5 Hyperlipidemia, unspecified; Z79.899 Other long term (current) drug therapy

== ENCOUNTER → 2021-12-17 | Outpatient (CLI) | payer MEDICARE, MEDICAID ==
[~2021-12-17] MED LIST changes: -CEFD1CAP8 PO; +CEFD300C41 PO; -FLUC150T PO; +FLUC150T9 PO; +LOSA50TA28 PO; -LOSA50TA88 PO; +OMEP-173 PO; -OMEP-218 PO
[2021-12-17 13:27] LABS: INR 3.98
== END ==
LOC: M PLALAB 10:58
PROVIDERS: ATTEND Internal Medicine
DX: Z51.81 Encounter for therapeutic drug level monitoring (principal); Z86.718 Personal history of other venous thrombosis and embolism; Z79.01 Long term (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 anticoagulants

== ENCOUNTER → 2022-01-21 | Outpatient (CLI) | payer MEDICARE, MEDICAID ==
[2022-01-21 10:46] LABS: INR 2.91; PROTHROMBIN TIME 30.7 SECONDS (12.7-14.5)
== END ==
LOC: M PLALAB 08:40
PROVIDERS: ATTEND Internal Medicine
DX: Z86.718 Personal history of other venous thrombosis and embolism (principal); Z79.899 Other long term (current) drug therapy

== ENCOUNTER → 2022-02-11 | Outpatient (CLI) | payer MEDICARE, MEDICAID ==
[2022-02-11 13:57] LABS: INR 1.13; PROTHROMBIN TIME 14.9 SECONDS (12.7-14.5)
[2022-02-11 14:16] LABS: ALBUMIN 3.6 GM/DL (3.2-5.2); ALT/SGPT 33 U/L (12-78); BILIRUBIN,TOTAL 0.5 MG/DL (0.2-1.0); BLOOD UREA NITROGEN 13 MG/DL (7-18); CALCIUM LEVEL 9.2 MG/DL (8.5-10.1); CARBON DIOXIDE LEVEL 29 MEQ/L (21-32); CHLORIDE LEVEL 106 MEQ/L (98-107); CREATININE FOR GFR 0.84 MG/DL (0.55-1.30); GLOMERULAR FILTRATION RATE > 60.0 (>51); GLUCOSE, FASTING 188 MG/DL (70-100); POTASSIUM SERUM 4.7 MEQ/L (3.5-5.1); SODIUM LEVEL 139 MEQ/L (136-145); TOTAL PROTEIN 7.3 GM/DL (6.4-8.2)
[2022-02-11 14:26] LABS: MALB URINE SIEMENS 34.7 MG/L; MAU/CREAT RATIO 10.5 MCG/MG (0.0-30.0)
[2022-02-11 14:49] LABS: HEMOGLOBIN A1c 10.3 %
== END ==
LOC: M PLALAB 09:23
PROVIDERS: ATTEND Internal Medicine
DX: E11.51 Type 2 diabetes mellitus with diabetic peripheral angiopathy without gangrene (principal); Z51.81 Encounter for therapeutic drug level monitoring

== ENCOUNTER → 2022-02-25 | Outpatient (CLI) | payer MEDICARE, MEDICAID ==
[~2022-02-25] MED LIST changes: +ALBU8.5H INH; +ARIP1TAB6 PO; +BUSP30TA PO; +ERGO500029 PO; +FERR32TA PO; +GLUC1KIT IM; +HYDR-3363 PO; +METO1TAB32 PO; +NITR4TASL SL; +NYST1POW9 TOP; +ONDA4TAB6 PO; -OXYB-54 OR; +OXYB-54 PO; +SUMA50TA2 PO; +TORS100T PO; +TRAZ-257 PO; +TRIA1CR80 TOP; +ZOLP5TAB PO
[2022-02-25 10:47] LABS: INR 1.21; PROTHROMBIN TIME 15.7 SECONDS (12.7-14.5)
[2022-02-25 11:00] LABS: HEMOGLOBIN A1c 9.9 %
[2022-02-25 11:16] LABS: ALBUMIN 3.5 GM/DL (3.2-5.2); ALT/SGPT 24 U/L (12-78); BILIRUBIN,TOTAL 0.7 MG/DL (0.2-1.0); BLOOD UREA NITROGEN 7 MG/DL (7-18); CALCIUM LEVEL 9.3 MG/DL (8.5-10.1); CARBON DIOXIDE LEVEL 28 MEQ/L (21-32); CHLORIDE LEVEL 105 MEQ/L (98-107); CREATININE FOR GFR 0.64 MG/DL (0.55-1.30); GLOMERULAR FILTRATION RATE > 60.0 (>51); GLUCOSE, FASTING 120 MG/DL (70-100); POTASSIUM SERUM 4.2 MEQ/L (3.5-5.1); SODIUM LEVEL 138 MEQ/L (136-145); TOTAL PROTEIN 7.3 GM/DL (6.4-8.2)
== END ==
LOC: M PLALAB 08:34
PROVIDERS: ATTEND Internal Medicine
DX: E11.51 Type 2 diabetes mellitus with diabetic peripheral angiopathy without gangrene (principal); Z51.81 Encounter for therapeutic drug level monitoring

== ENCOUNTER → 2022-02-25 | Outpatient (CLI) | payer MEDICARE, MEDICAID ==
[2022-02-25 10:38] LABS: BASO # 0.1 10^3/uL (0.0-0.2); BASO % 0.7 % (0.0-1.0); EOS # 0.2 10^3/uL (0.0-0.5); EOS % 2.4 % (0.0-3.0); HEMATOCRIT 38.2 % (36.0-47.0); HEMOGLOBIN 12.8 g/dl (12.0-15.5); LYMPH # 2.6 10^3/uL (1.5-5.0); LYMPH % 27.3 % (24.0-44.0); MEAN CORPUSCULAR HEMOGLOBIN 29.8 pg (27.0-33.0); MEAN CORPUSCULAR HGB CONC 33.5 g/dl (32.0-36.5); MONO # 0.7 10^3/uL (0.0-0.8); MONO % 6.8 % (2.0-8.0); NEUTROPHILS # 5.9 10^3/uL (1.5-8.5); NEUTROPHILS % 62.3 % (36.0-66.0); PLATELET COUNT, AUTOMATED 351 10^3/uL (150-450); RED BLOOD COUNT 4.29 10^6/uL (4.00-5.40); WHITE BLOOD COUNT 9.5 10^3/uL (4.0-10.0)
[2022-02-25 10:59] LABS: ERYTHROCYTE SEDIMENTATION RATE 57 mm/hr (0-30)
[2022-02-25 11:15] LABS: ALBUMIN 3.6 GM/DL (3.2-5.2); ALT/SGPT 25 U/L (12-78); BILIRUBIN,TOTAL 0.8 MG/DL (0.2-1.0); BLOOD UREA NITROGEN 7 MG/DL (7-18); C REACTIVE PROTEIN QUANTITATIV 5.11 MG/DL (0.00-0.30); CALCIUM LEVEL 9.3 MG/DL (8.5-10.1); CARBON DIOXIDE LEVEL 28 MEQ/L (21-32); CHLORIDE LEVEL 105 MEQ/L (98-107); COMPLEMENT C3 163 MG/DL (90-180); COMPLEMENT C4 28 MG/DL (10-40); CREATININE FOR GFR 0.62 MG/DL (0.55-1.30); GLOMERULAR FILTRATION RATE > 60.0 (>51); GLUCOSE, FASTING 116 MG/DL (70-100); POTASSIUM SERUM 4.2 MEQ/L (3.5-5.1); RHEUMATOID FACTOR QUANT 48.5 IU/ML (<15.0); SODIUM LEVEL 139 MEQ/L (136-145); TOTAL PROTEIN 7.4 GM/DL (6.4-8.2)
[2022-02-25 11:37] LABS: MALB URINE SIEMENS 24.1 MG/L; MAU/CREAT RATIO 9.8 MCG/MG (0.0-30.0); TOTAL PROTEIN,RANDOM URINE 24.5 MG/DL (0.0-12.0)
[2022-02-27 16:10] LABS: ANCA-ATYPICAL <1:20 titer (Neg:<1:20); CYTOPLASMIC NEUTROP AB ANCA-C <1:20 titer (Neg:<1:20); PERINUCLEAR AB ANCA-P <1:20 titer (Neg:<1:20); PR3 ANTIPROTEINASE ANTIBODIES <3.5 U/mL (0.0-3.5)
== END ==
LOC: M PLALAB 08:32
DX: R21 Rash and other nonspecific skin eruption (principal); Z51.81 Encounter for therapeutic drug level monitoring

== ENCOUNTER 2022-02-26 17:36 | Inpatient (IN) | payer MEDICARE, MEDICAID ==
[~2022-02-26] VITALS: Ht 170.2 cm; Wt 123.2 kg
[~2022-02-26 17:36] MED LIST changes: -ALBU8.5H INH; -ARIP1TAB6 PO; -BUSP30TA PO; -ERGO500029 PO; -FERR32TA PO; -GLUC1KIT IM; -HYDR-3363 PO; -METO1TAB32 PO; -NITR4TASL SL; -NYST1POW9 TOP; -ONDA4TAB6 PO; -SUMA50TA2 PO; -TORS100T PO; -TRAZ-257 PO; -TRIA1CR80 TOP; +VANCOMYCIN HCL 1,000 MG, VIAL MATE ADAPTER 1 EACH in NS 250 ML IV ONE; -ZOLP5TAB PO
[2022-02-26] MEDS: HumaLOG INSULIN (NovoLOG) PER UNIT SC SCH (21:00)
[2022-02-26 21:23] LABS: BASO # 0.1 10^3/uL (0.0-0.2); BASO % 0.6 % (0.0-1.0); EOS # 0.1 10^3/uL (0.0-0.5); EOS % 1.1 % (0.0-3.0); HEMATOCRIT 40.3 % (36.0-47.0); HEMOGLOBIN 13.1 g/dl (12.0-15.5); LYMPH # 5.1 10^3/uL (1.5-5.0); LYMPH % 39.6 % (24.0-44.0); MEAN CORPUSCULAR HEMOGLOBIN 29.4 pg (27.0-33.0); MEAN CORPUSCULAR HGB CONC 32.5 g/dl (32.0-36.5); MEAN CORPUSCULAR VOLUME 90.6 fl (80.0-96.0); MONO # 1.3 10^3/uL (0.0-0.8); MONO % 10.2 % (2.0-8.0); NEUTROPHILS # 6.2 10^3/uL (1.5-8.5); PLATELET COUNT, AUTOMATED 399 10^3/uL (150-450); RED BLOOD COUNT 4.45 10^6/uL (4.00-5.40); WHITE BLOOD COUNT 12.8 10^3/uL (4.0-10.0)
[2022-02-26 21:47] LABS: ALBUMIN 3.6 GM/DL (3.2-5.2); ALT/SGPT 26 U/L (12-78); BILIRUBIN,DIRECT 0.2 MG/DL (0.0-0.2); BILIRUBIN,TOTAL 0.6 MG/DL (0.2-1.0); BLOOD UREA NITROGEN 8 MG/DL (7-18); CALCIUM LEVEL 9.2 MG/DL (8.5-10.1); CARBON DIOXIDE LEVEL 26 MEQ/L (21-32); CHLORIDE LEVEL 104 MEQ/L (98-107); CREATININE FOR GFR 0.83 MG/DL (0.55-1.30); ERYTHROCYTE SEDIMENTATION RATE 62 mm/hr (0-30); GLOMERULAR FILTRATION RATE > 60.0 (>51); GLUCOSE, FASTING 95 MG/DL (70-100); POTASSIUM SERUM 3.5 MEQ/L (3.5-5.1); SODIUM LEVEL 136 MEQ/L (136-145); TOTAL PROTEIN 7.9 GM/DL (6.4-8.2)
[2022-02-26] MEDS ORDERED: NS 500 ML IV ONE (22:35)
[2022-02-26] MEDS ORDERED: DEXTROSE 50% 50 ML SYRINGE IV PRN (23:10)
[2022-02-26] MEDS ORDERED: NS 3,150 ML in IV 1 EA IV ONE (23:10)
[2022-02-26] MEDS ORDERED: VANCOMYCIN HCL 1,000 MG, VIAL MATE ADAPTER 1 EACH in NS 250 ML IV ONE (23:10)
[2022-02-26] MEDS ORDERED: ACETAMINOPHEN TAB 650MG DOSE (2X325MG) PO PRN (23:10)
[2022-02-26] MEDS ORDERED: GLUCAGON INJ 1MG VIAL SC PRN (23:10)
[2022-02-26] MEDS ORDERED: GLUCOSE 4GM CHEW TABLET PO PRN (23:10)
[2022-02-26] MEDS ORDERED: CLINDAMYCIN 600 MG in IV 1 EA IV ONE (23:15)
[2022-02-26] MEDS ORDERED: BOOSTRIX/ADACEL VACCINE (DIPHTH/PERTUSS/ACELL/TETANUS) 0.5ML SYR IM ONE (23:20)
[2022-02-26 23:31] LABS: RSV AMPLIFICATION NEGATIVE (NEGATIVE)
[2022-02-27] MEDS ORDERED: IPRATROPIUM 0.5MG/ALBUTEROL 2.5MG INH SOL UD 3ML (DUONEB) NEB PRN
[2022-02-27 00:39] LABS: CK-MB VALUE MASS < 1.0 NG/ML (<3.6); CPK CREATINE PHOSPHOKINASE 37 U/L (26-192)
[2022-02-27] MEDS ORDERED: MORPHINE 2 MG/ML 1ML VIAL IV ONE (01:00)
[2022-02-27] MEDS ORDERED: VANCOMYCIN HCL 1,000 MG, VIAL MATE ADAPTER 1 EACH in NS 250 ML IV ONE (01:15)
[2022-02-27] MEDS ORDERED: BUSP30TA PO (01:32)
[2022-02-27] MEDS ORDERED: GLUC1KIT IM (01:32)
[2022-02-27] MEDS ORDERED: ZOLP5TAB PO (01:32)
[2022-02-27] MEDS ORDERED: ONDA4TAB6 PO (01:32)
[2022-02-27] MEDS ORDERED: ELIQ5TAB PO (01:32)
[2022-02-27] MEDS ORDERED: TORS100T PO (01:32)
[2022-02-27] MEDS ORDERED: METO1TAB32 PO (01:32)
[2022-02-27] MEDS ORDERED: TRIA1CR80 TOP (01:32)
[2022-02-27] MEDS ORDERED: ERGO500029 PO (01:32)
[2022-02-27] MEDS ORDERED: TRAZ-257 PO (01:32)
[2022-02-27] MEDS ORDERED: ALBU8.5H INH (01:32)
[2022-02-27] MEDS ORDERED: NITR4TASL SL (01:32)
[2022-02-27] MEDS ORDERED: SUMA50TA2 PO (01:32)
[2022-02-27] MEDS ORDERED: NYST1POW9 TOP (01:32)
[2022-02-27] MEDS ORDERED: TRAM50TA2 PO (01:32)
[2022-02-27] MEDS ORDERED: BACITAB PO (01:32)
[2022-02-27] MEDS ORDERED: HYDR-3363 PO (01:32)
[2022-02-27] MEDS ORDERED: ARIP1TAB6 PO (01:32)
[2022-02-27] MEDS ORDERED: FERR32TA PO (01:32)
[2022-02-27] MEDS ORDERED: HOME MED LIST COMPLETE! XX SCH (01:35)
[2022-02-27 06:00] VITALS: BP 146/62
[2022-02-27] MEDS: PERCOCET 5MG/325MG TAB PO PRN ×3 (06:24→19:45)
[2022-02-27 06:58] LABS: BASO # 0.1 10^3/uL (0.0-0.2); BASO % 0.6 % (0.0-1.0); EOS % 0.5 % (0.0-3.0); HEMATOCRIT 38.2 % (36.0-47.0); HEMOGLOBIN 12.4 g/dl (12.0-15.5); LYMPH # 1.5 10^3/uL (1.5-5.0); LYMPH % 18.4 % (24.0-44.0); MEAN CORPUSCULAR HEMOGLOBIN 29.2 pg (27.0-33.0); MEAN CORPUSCULAR HGB CONC 32.5 g/dl (32.0-36.5); MEAN CORPUSCULAR VOLUME 90.1 fl (80.0-96.0); MONO # 0.7 10^3/uL (0.0-0.8); MONO % 9.3 % (2.0-8.0); NEUTROPHILS # 5.6 10^3/uL (1.5-8.5); NEUTROPHILS % 70.8 % (36.0-66.0); PLATELET COUNT, AUTOMATED 300 10^3/uL (150-450); RED BLOOD COUNT 4.24 10^6/uL (4.00-5.40); WHITE BLOOD COUNT 7.9 10^3/uL (4.0-10.0)
[2022-02-27 07:09] LABS: BLOOD UREA NITROGEN 6 MG/DL (7-18); CALCIUM LEVEL 8.6 MG/DL (8.5-10.1); CARBON DIOXIDE LEVEL 22 MEQ/L (21-32); CHLORIDE LEVEL 108 MEQ/L (98-107); CREATININE FOR GFR 0.61 MG/DL (0.55-1.30); GLOMERULAR FILTRATION RATE > 60.0 (>51); GLUCOSE, FASTING 170 MG/DL (70-100); INR 1.19; POTASSIUM SERUM 3.9 MEQ/L (3.5-5.1); PROTHROMBIN TIME 15.5 SECONDS (12.7-14.5); SODIUM LEVEL 135 MEQ/L (136-145)
[2022-02-27 07:10] LABS: PARTIAL THROMBOPLASTIN TIME 35.1 SECONDS (25.9-37.0)
[2022-02-27] MEDS: HumaLOG INSULIN (NovoLOG) PER UNIT SC SCH ×4 (08:13→20:48)
[2022-02-27] MEDS: VANCOMYCIN HCL 750 MG, VIAL MATE ADAPTER 1 EACH in NS 250 ML IV SCH ×4 (08:13→21:02)
[2022-02-27] MEDS: LEVEMIR (INSULIN DETEMIR) 1 UNITS/0.01ML SC SCH ×2 (10:16→21:01)
[2022-02-27] MEDS: APIXABAN 5 MG TAB (ELIQUIS) PO SCH ×2 (10:17→21:01)
[2022-02-27] MEDS: GABAPENTIN 300 MG CAP PO SCH ×3 (10:17→21:01)
[2022-02-27] MEDS: OMEPRAZOLE 20MG CAP PO SCH (10:17)
[2022-02-27] MEDS: busPIRone 10 MG TAB PO SCH ×2 (10:17→21:01)
[2022-02-27] MEDS: cefTRIAXone SOD 1 GM in D5W MINI-BAG PLUS 50 ML IV SCH (12:30)
[2022-02-27 13:30] VITALS: BP 145/62
[2022-02-27] MEDS ORDERED: ONDANSETRON 4MG/2ML VIAL IV PRN (20:15)
[2022-02-27] MEDS: ROSUVASTATIN 10 MG TAB (CRESTOR) PO SCH (21:01)
[2022-02-27] MEDS: traZODone 100 MG TAB PO SCH (21:01)
[2022-02-27] MEDS ORDERED: PERCOCET 5MG/325MG TAB PO ONE (21:30)
[2022-02-27 22:00] VITALS: BP 100/50
[2022-02-28 05:51] LABS: BASO % 0.6 % (0.0-1.0); EOS # 0.1 10^3/uL (0.0-0.5); EOS % 0.7 % (0.0-3.0); HEMATOCRIT 31.9 % (36.0-47.0); HEMOGLOBIN 10.5 g/dl (12.0-15.5); LYMPH # 1.2 10^3/uL (1.5-5.0); LYMPH % 17.6 % (24.0-44.0); MEAN CORPUSCULAR HEMOGLOBIN 29.8 pg (27.0-33.0); MEAN CORPUSCULAR HGB CONC 32.9 g/dl (32.0-36.5); MEAN CORPUSCULAR VOLUME 90.6 fl (80.0-96.0); MONO # 0.7 10^3/uL (0.0-0.8); MONO % 10.9 % (2.0-8.0); NEUTROPHILS # 4.8 10^3/uL (1.5-8.5); NEUTROPHILS % 69.6 % (36.0-66.0); PLATELET COUNT, AUTOMATED 269 10^3/uL (150-450); RED BLOOD COUNT 3.52 10^6/uL (4.00-5.40); WHITE BLOOD COUNT 6.8 10^3/uL (4.0-10.0)
[2022-02-28 06:00] VITALS: BP 140/68
[2022-02-28] MEDS: PERCOCET 5MG/325MG TAB PO PRN ×3 (06:03→20:29)
[2022-02-28 06:13] LABS: ERYTHROCYTE SEDIMENTATION RATE 72 mm/hr (0-30)
[2022-02-28 06:24] LABS: BLOOD UREA NITROGEN 5 MG/DL (7-18); CALCIUM LEVEL 8.2 MG/DL (8.5-10.1); CARBON DIOXIDE LEVEL 25 MEQ/L (21-32); CHLORIDE LEVEL 107 MEQ/L (98-107); CREATININE FOR GFR 0.55 MG/DL (0.55-1.30); GLOMERULAR FILTRATION RATE > 60.0 (>51); GLUCOSE, FASTING 190 MG/DL (70-100); NT-PRO BNP 671 PG/ML (<125); POTASSIUM SERUM 4.2 MEQ/L (3.5-5.1); SODIUM LEVEL 138 MEQ/L (136-145)
[2022-02-28 08:45] LABS: VANCOMYCIN RANDOM 15.6 UG/ML
[2022-02-28] MEDS: LEVEMIR (INSULIN DETEMIR) 1 UNITS/0.01ML SC SCH ×2 (09:20→21:33)
[2022-02-28] MEDS: OMEPRAZOLE 20MG CAP PO SCH (09:21)
[2022-02-28] MEDS: GABAPENTIN 300 MG CAP PO SCH ×3 (09:21→20:28)
[2022-02-28] MEDS: VANCOMYCIN HCL 750 MG, VIAL MATE ADAPTER 1 EACH in NS 250 ML IV SCH ×4 (09:21→21:38)
[2022-02-28] MEDS: HumaLOG INSULIN (NovoLOG) PER UNIT SC SCH ×4 (09:21→21:00)
[2022-02-28] MEDS: APIXABAN 5 MG TAB (ELIQUIS) PO SCH (09:21)
[2022-02-28] MEDS: busPIRone 10 MG TAB PO SCH ×2 (09:21→20:28)
[2022-02-28] MEDS: cefTRIAXone SOD 1 GM in D5W MINI-BAG PLUS 50 ML IV SCH (12:28)
[2022-02-28 14:44] VITALS: BP 136/68
[2022-02-28] MEDS: traZODone 100 MG TAB PO SCH (20:28)
[2022-02-28] MEDS: ROSUVASTATIN 10 MG TAB (CRESTOR) PO SCH (20:29)
[2022-02-28 20:39] VITALS: BP 128/62
[2022-03-01] MEDS: PERCOCET 5MG/325MG TAB PO PRN (05:30)
[2022-03-01 06:00] VITALS: BP 130/62
[2022-03-01 07:23] LABS: BASO # 0.1 10^3/uL (0.0-0.2); BASO % 0.7 % (0.0-1.0); EOS # 0.2 10^3/uL (0.0-0.5); EOS % 2.9 % (0.0-3.0); HEMATOCRIT 30.7 % (36.0-47.0); HEMOGLOBIN 10.2 g/dl (12.0-15.5); LYMPH # 1.4 10^3/uL (1.5-5.0); LYMPH % 20.6 % (24.0-44.0); MEAN CORPUSCULAR HEMOGLOBIN 29.6 pg (27.0-33.0); MEAN CORPUSCULAR HGB CONC 33.2 g/dl (32.0-36.5); MONO # 0.7 10^3/uL (0.0-0.8); MONO % 10.4 % (2.0-8.0); NEUTROPHILS # 4.4 10^3/uL (1.5-8.5); NEUTROPHILS % 64.5 % (36.0-66.0); PLATELET COUNT, AUTOMATED 288 10^3/uL (150-450); RED BLOOD COUNT 3.45 10^6/uL (4.00-5.40); WHITE BLOOD COUNT 6.8 10^3/uL (4.0-10.0)
[2022-03-01 08:05] LABS: BLOOD UREA NITROGEN 5 MG/DL (7-18); CALCIUM LEVEL 8.1 MG/DL (8.5-10.1); CARBON DIOXIDE LEVEL 28 MEQ/L (21-32); CHLORIDE LEVEL 104 MEQ/L (98-107); CREATININE FOR GFR 0.65 MG/DL (0.55-1.30); GLOMERULAR FILTRATION RATE > 60.0 (>51); GLUCOSE, FASTING 183 MG/DL (70-100); SODIUM LEVEL 136 MEQ/L (136-145)
[2022-03-01] MEDS: ceFAZolin SOD 2 GM in IV 1 EA IV SCH ×3 (08:34→23:20)
[2022-03-01] MEDS: HumaLOG INSULIN (NovoLOG) PER UNIT SC SCH ×4 (08:34→20:46)
[2022-03-01] MEDS: LEVEMIR (INSULIN DETEMIR) 1 UNITS/0.01ML SC SCH ×2 (08:34→20:46)
[2022-03-01] MEDS: SPIRONOLACTONE 25 MG TAB PO SCH (08:35)
[2022-03-01] MEDS: GABAPENTIN 300 MG CAP PO SCH ×3 (08:35→20:45)
[2022-03-01] MEDS: FOLIC ACID 1 MG TAB PO SCH (08:35)
[2022-03-01] MEDS: TORSEMIDE (DEMADEX) 50 MG PER 1/2 TAB PO SCH (08:35)
[2022-03-01] MEDS: OMEPRAZOLE 20MG CAP PO SCH (08:35)
[2022-03-01] MEDS: busPIRone 10 MG TAB PO SCH ×2 (08:35→20:45)
[2022-03-01] MEDS: FERROUS GLUCONATE 324 MG TAB PO SCH (08:35)
[2022-03-01] MEDS ORDERED: ALPRAZolam 0.5 MG TAB PO ONE (14:55)
[2022-03-01] MEDS ORDERED: LIDOCAINE 1% MDV 20ML VIAL As Ordered ONE (16:31)
[2022-03-01] MEDS ORDERED: SODIUM CHLORIDE 0.9% INJ 10 ML SYR IV PRN (17:50)
[2022-03-01] MEDS ORDERED: SODIUM CHLORIDE 0.9% INJ 10 ML SYR IV SCH (18:00)
[2022-03-01] MEDS: SODIUM CHLORIDE 0.9% INJ 10 ML SYR IV SCH (18:53)
[2022-03-01 20:39] VITALS: BP 122/56
[2022-03-01] MEDS: APIXABAN 5 MG TAB (ELIQUIS) PO SCH (20:45)
[2022-03-01] MEDS: traZODone 100 MG TAB PO SCH (20:45)
[2022-03-01] MEDS: ROSUVASTATIN 10 MG TAB (CRESTOR) PO SCH (20:46)
[2022-03-02] MEDS: PERCOCET 5MG/325MG TAB PO PRN ×3 (02:37→17:25)
[2022-03-02] MEDS: SODIUM CHLORIDE 0.9% INJ 10 ML SYR IV SCH ×2 (05:21→18:45)
[2022-03-02 05:40] VITALS: BP 107/51
[2022-03-02 08:05] VITALS: BP 112/56
[2022-03-02] MEDS: HumaLOG INSULIN (NovoLOG) PER UNIT SC SCH ×4 (08:57→21:00)
[2022-03-02] MEDS: ceFAZolin SOD 2 GM in IV 1 EA IV SCH ×3 (08:57→23:37)
[2022-03-02] MEDS: OMEPRAZOLE 20MG CAP PO SCH (08:58)
[2022-03-02] MEDS: LEVEMIR (INSULIN DETEMIR) 1 UNITS/0.01ML SC SCH ×2 (08:58→21:38)
[2022-03-02] MEDS: FERROUS GLUCONATE 324 MG TAB PO SCH (08:59)
[2022-03-02] MEDS: FOLIC ACID 1 MG TAB PO SCH (09:00)
[2022-03-02] MEDS: APIXABAN 5 MG TAB (ELIQUIS) PO SCH ×2 (09:00→21:37)
[2022-03-02] MEDS: GABAPENTIN 300 MG CAP PO SCH ×3 (09:09→21:37)
[2022-03-02] MEDS: busPIRone 10 MG TAB PO SCH ×2 (10:11→21:37)
[2022-03-02] MEDS: TORSEMIDE (DEMADEX) 50 MG PER 1/2 TAB PO SCH (10:12)
[2022-03-02] MEDS: SPIRONOLACTONE 25 MG TAB PO SCH (10:12)
[2022-03-02 14:19] VITALS: BP 121/60
[2022-03-02] MEDS: traZODone 100 MG TAB PO SCH (21:37)
[2022-03-02] MEDS: ROSUVASTATIN 10 MG TAB (CRESTOR) PO SCH (21:37)
[2022-03-02 22:00] VITALS: BP 115/59
[2022-03-03] MEDS: SODIUM CHLORIDE 0.9% INJ 10 ML SYR IV SCH ×2 (05:06→17:37)
[2022-03-03 06:00] VITALS: BP 115/57
[2022-03-03] MEDS: HumaLOG INSULIN (NovoLOG) PER UNIT SC SCH ×4 (07:24→20:44)
[2022-03-03] MEDS: PERCOCET 5MG/325MG TAB PO PRN ×3 (07:25→20:43)
[2022-03-03] MEDS: ceFAZolin SOD 2 GM in IV 1 EA IV SCH ×2 (07:42→15:11)
[2022-03-03 07:59] LABS: BASO # 0.1 10^3/uL (0.0-0.2); BASO % 0.9 % (0.0-1.0); EOS # 0.2 10^3/uL (0.0-0.5); EOS % 3.4 % (0.0-3.0); HEMATOCRIT 34.8 % (36.0-47.0); HEMOGLOBIN 11.6 g/dl (12.0-15.5); LYMPH % 29.8 % (24.0-44.0); MEAN CORPUSCULAR HEMOGLOBIN 29.5 pg (27.0-33.0); MEAN CORPUSCULAR HGB CONC 33.3 g/dl (32.0-36.5); MEAN CORPUSCULAR VOLUME 88.5 fl (80.0-96.0); MONO # 0.5 10^3/uL (0.0-0.8); NEUTROPHILS # 3.9 10^3/uL (1.5-8.5); NEUTROPHILS % 58.3 % (36.0-66.0); PLATELET COUNT, AUTOMATED 366 10^3/uL (150-450); RED BLOOD COUNT 3.93 10^6/uL (4.00-5.40); WHITE BLOOD COUNT 6.7 10^3/uL (4.0-10.0)
[2022-03-03 08:48] LABS: BLOOD UREA NITROGEN 10 MG/DL (7-18); CARBON DIOXIDE LEVEL 33 MEQ/L (21-32); CHLORIDE LEVEL 98 MEQ/L (98-107); CREATININE FOR GFR 0.72 MG/DL (0.55-1.30); GLOMERULAR FILTRATION RATE > 60.0 (>51); GLUCOSE, FASTING 157 MG/DL (70-100); POTASSIUM SERUM 3.2 MEQ/L (3.5-5.1); SODIUM LEVEL 137 MEQ/L (136-145)
[2022-03-03] MEDS: LEVEMIR (INSULIN DETEMIR) 1 UNITS/0.01ML SC SCH ×2 (09:40→20:44)
[2022-03-03] MEDS: busPIRone 10 MG TAB PO SCH ×2 (09:41→20:42)
[2022-03-03] MEDS: TORSEMIDE (DEMADEX) 50 MG PER 1/2 TAB PO SCH (09:41)
[2022-03-03] MEDS: SODIUM CHLORIDE 0.9% INJ 10 ML SYR IV PRN (09:41)
[2022-03-03] MEDS: GABAPENTIN 300 MG CAP PO SCH ×3 (09:42→20:43)
[2022-03-03] MEDS: FERROUS GLUCONATE 324 MG TAB PO SCH (09:42)
[2022-03-03] MEDS: OMEPRAZOLE 20MG CAP PO SCH (09:43)
[2022-03-03] MEDS: FOLIC ACID 1 MG TAB PO SCH (09:43)
[2022-03-03] MEDS: APIXABAN 5 MG TAB (ELIQUIS) PO SCH ×2 (09:43→20:43)
[2022-03-03] MEDS: SPIRONOLACTONE 25 MG TAB PO SCH (09:43)
[2022-03-03] MEDS ORDERED: POTASSIUM CHLORIDE 10MEQ SR TABLET PO ONE (12:45)
[2022-03-03 14:00] VITALS: BP 133/72
[2022-03-03] MEDS: traZODone 100 MG TAB PO SCH (20:43)
[2022-03-03] MEDS: ROSUVASTATIN 10 MG TAB (CRESTOR) PO SCH (20:43)
[2022-03-03 21:57] VITALS: BP 123/65
[2022-03-04] MEDS: ceFAZolin SOD 2 GM in IV 1 EA IV SCH ×3 (00:14→16:26)
[2022-03-04] MEDS: SODIUM CHLORIDE 0.9% INJ 10 ML SYR IV PRN ×3 (02:07→10:09)
[2022-03-04] MEDS: SODIUM CHLORIDE 0.9% INJ 10 ML SYR IV SCH ×2 (04:45→17:44)
[2022-03-04 05:12] LABS: BASO # 0.1 10^3/uL (0.0-0.2); BASO % 1.2 % (0.0-1.0); EOS # 0.3 10^3/uL (0.0-0.5); EOS % 4.8 % (0.0-3.0); HEMATOCRIT 33.6 % (36.0-47.0); LYMPH # 2.6 10^3/uL (1.5-5.0); LYMPH % 40.3 % (24.0-44.0); MEAN CORPUSCULAR HEMOGLOBIN 29.1 pg (27.0-33.0); MEAN CORPUSCULAR HGB CONC 32.7 g/dl (32.0-36.5); MEAN CORPUSCULAR VOLUME 88.9 fl (80.0-96.0); MONO # 0.4 10^3/uL (0.0-0.8); MONO % 6.1 % (2.0-8.0); NEUTROPHILS % 46.8 % (36.0-66.0); PLATELET COUNT, AUTOMATED 372 10^3/uL (150-450); RED BLOOD COUNT 3.78 10^6/uL (4.00-5.40); WHITE BLOOD COUNT 6.4 10^3/uL (4.0-10.0)
[2022-03-04 05:35] LABS: BLOOD UREA NITROGEN 12 MG/DL (7-18); CALCIUM LEVEL 8.8 MG/DL (8.5-10.1); CARBON DIOXIDE LEVEL 37 MEQ/L (21-32); CHLORIDE LEVEL 96 MEQ/L (98-107); CREATININE FOR GFR 0.76 MG/DL (0.55-1.30); GLOMERULAR FILTRATION RATE > 60.0 (>51); GLUCOSE, FASTING 175 MG/DL (70-100); POTASSIUM SERUM 3.2 MEQ/L (3.5-5.1); SODIUM LEVEL 139 MEQ/L (136-145)
[2022-03-04 06:00] VITALS: BP 132/71
[2022-03-04] MEDS: PERCOCET 5MG/325MG TAB PO PRN ×3 (06:14→20:19)
[2022-03-04] MEDS: OMEPRAZOLE 20MG CAP PO SCH (08:22)
[2022-03-04] MEDS: APIXABAN 5 MG TAB (ELIQUIS) PO SCH ×2 (08:22→20:17)
[2022-03-04] MEDS: POTASSIUM CHLORIDE 10MEQ SR TABLET PO SCH ×2 (08:22→09:36)
[2022-03-04] MEDS: GABAPENTIN 300 MG CAP PO SCH ×3 (08:22→20:18)
[2022-03-04] MEDS: FOLIC ACID 1 MG TAB PO SCH (08:23)
[2022-03-04] MEDS: TORSEMIDE (DEMADEX) 50 MG PER 1/2 TAB PO SCH (08:23)
[2022-03-04] MEDS: busPIRone 10 MG TAB PO SCH ×2 (08:23→20:18)
[2022-03-04] MEDS: SPIRONOLACTONE 25 MG TAB PO SCH (08:23)
[2022-03-04] MEDS: FERROUS GLUCONATE 324 MG TAB PO SCH (08:23)
[2022-03-04] MEDS: LEVEMIR (INSULIN DETEMIR) 1 UNITS/0.01ML SC SCH ×2 (08:25→20:21)
[2022-03-04] MEDS: HumaLOG INSULIN (NovoLOG) PER UNIT SC SCH ×4 (08:25→20:22)
[2022-03-04] MEDS ORDERED: LORazepam 2 MG/ML VIAL IV ONE (09:45)
[2022-03-04] MEDS ORDERED: PROHANCE 279.3MG/ML 5ML VIAL As Ordered ONE (10:45)
[2022-03-04] MEDS ORDERED: PROHANCE 279.3MG/ML 15ML VIAL As Ordered ONE (10:46)
[2022-03-04 14:00] VITALS: BP 130/76
[2022-03-04] MEDS: ROSUVASTATIN 10 MG TAB (CRESTOR) PO SCH (20:17)
[2022-03-04] MEDS: traZODone 100 MG TAB PO SCH (20:18)
[2022-03-04 22:00] VITALS: BP 134/73
[2022-03-05] MEDS: ceFAZolin SOD 2 GM in IV 1 EA IV SCH ×2 (00:59→08:44)
[2022-03-05] MEDS: PERCOCET 5MG/325MG TAB PO PRN ×2 (06:08→12:47)
[2022-03-05] MEDS: SODIUM CHLORIDE 0.9% INJ 10 ML SYR IV SCH (06:08)
[2022-03-05 06:25] LABS: BASO # 0.1 10^3/uL (0.0-0.2); EOS # 0.4 10^3/uL (0.0-0.5); EOS % 4.6 % (0.0-3.0); HEMATOCRIT 33.9 % (36.0-47.0); HEMOGLOBIN 11.2 g/dl (12.0-15.5); LYMPH # 2.9 10^3/uL (1.5-5.0); LYMPH % 36.1 % (24.0-44.0); MEAN CORPUSCULAR HEMOGLOBIN 29.7 pg (27.0-33.0); MEAN CORPUSCULAR VOLUME 89.9 fl (80.0-96.0); MONO # 0.4 10^3/uL (0.0-0.8); MONO % 5.3 % (2.0-8.0); NEUTROPHILS # 4.2 10^3/uL (1.5-8.5); NEUTROPHILS % 51.9 % (36.0-66.0); PLATELET COUNT, AUTOMATED 359 10^3/uL (150-450); RED BLOOD COUNT 3.77 10^6/uL (4.00-5.40); WHITE BLOOD COUNT 8.1 10^3/uL (4.0-10.0)
[2022-03-05 06:53] LABS: BLOOD UREA NITROGEN 13 MG/DL (7-18); CALCIUM LEVEL 8.9 MG/DL (8.5-10.1); CARBON DIOXIDE LEVEL 37 MEQ/L (21-32); CHLORIDE LEVEL 97 MEQ/L (98-107); CREATININE FOR GFR 0.77 MG/DL (0.55-1.30); GLOMERULAR FILTRATION RATE > 60.0 (>51); GLUCOSE, FASTING 162 MG/DL (70-100); POTASSIUM SERUM 3.6 MEQ/L (3.5-5.1); SODIUM LEVEL 138 MEQ/L (136-145)
[2022-03-05 07:20] VITALS: BP 106/48
[2022-03-05 07:44] VITALS: BP 133/68
[2022-03-05] MEDS: HumaLOG INSULIN (NovoLOG) PER UNIT SC SCH ×2 (08:13→11:43)
[2022-03-05] MEDS: POTASSIUM CHLORIDE 10MEQ SR TABLET PO SCH ×2 (08:13→08:14)
[2022-03-05] MEDS: SPIRONOLACTONE 25 MG TAB PO SCH (08:14)
[2022-03-05] MEDS: busPIRone 10 MG TAB PO SCH (08:14)
[2022-03-05] MEDS: OMEPRAZOLE 20MG CAP PO SCH (08:14)
[2022-03-05] MEDS: FOLIC ACID 1 MG TAB PO SCH (08:14)
[2022-03-05] MEDS: GABAPENTIN 300 MG CAP PO SCH (08:14)
[2022-03-05] MEDS: TORSEMIDE (DEMADEX) 50 MG PER 1/2 TAB PO SCH (08:14)
[2022-03-05] MEDS: APIXABAN 5 MG TAB (ELIQUIS) PO SCH (08:14)
[2022-03-05] MEDS: FERROUS GLUCONATE 324 MG TAB PO SCH (08:14)
[2022-03-05] MEDS: LEVEMIR (INSULIN DETEMIR) 1 UNITS/0.01ML SC SCH (09:15)
[2022-03-05] MEDS ORDERED: OXYC1TAB23 PO (23:54)
== END 2022-03-05 14:10 | disposition home health service (06) | DRG 853 ==
LOC: M ED 17:36 → M ED INP 23:07 → ENRESERV 02-27 02:29 → M MS5PR 02-27 03:30
PROVIDERS: ADMIT Internal Medicine; ATTEND Internal Medicine
PROC: 0JBR0ZZ Excision of Left Foot Subcutaneous Tissue and Fascia, Open Approach (ICD-10-PCS; principal; 2022-02-28)
PROC: 02HV33Z Insertion of Infusion Device into Superior Vena Cava, Percutaneous Approach (ICD-10-PCS; 2022-03-01)
DX: A41.9 Sepsis, unspecified organism (principal); I50.33 Acute on chronic diastolic (congestive) heart failure; E87.2 Acidosis; L03.116 Cellulitis of left lower limb; L02.612 Cutaneous abscess of left foot; Z98.84 Bariatric surgery status; E11.42 Type 2 diabetes mellitus with diabetic polyneuropathy; Z87.891 Personal history of nicotine dependence; E11.622 Type 2 diabetes mellitus with other skin ulcer; Z86.73 Personal history of transient ischemic attack (TIA), and cerebral infarction without residual deficits; Z86.718 Personal history of other venous thrombosis and embolism; Z79.01 Long term (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 anticoagulants; N32.81 Overactive bladder; E66.9 Obesity, unspecified; I11.0 Hypertensive heart disease with heart failure; E11.621 Type 2 diabetes mellitus with foot ulcer; S91.301A Unspecified open wound, right foot, initial encounter; X58.XXXA Exposure to other specified factors, initial encounter; Y92.9 Unspecified place or not applicable; M32.9 Systemic lupus erythematosus, unspecified; M06.9 Rheumatoid arthritis, unspecified; G43.909 Migraine, unspecified, not intractable, without status migrainosus; F31.9 Bipolar disorder, unspecified; F60.7 Dependent personality disorder; D64.9 Anemia, unspecified; E11.319 Type 2 diabetes mellitus with unspecified diabetic retinopathy without macular edema; L97.529 Non-pressure chronic ulcer of other part of left foot with unspecified severity; I25.10 Atherosclerotic heart disease of native coronary artery without angina pectoris; Z90.49 Acquired absence of other specified parts of digestive tract; Z90.79 Acquired absence of other genital organ(s); Z89.419 Acquired absence of unspecified great toe; Z89.429 Acquired absence of other toe(s), unspecified side; I27.20 Pulmonary hypertension, unspecified; R65.20 Severe sepsis without septic shock

== ENCOUNTER 2022-03-06 10:22 | Emergency (ER) | payer MEDICARE, MEDICAID ==
[~2022-03-06] VITALS: Ht 170.2 cm; Wt 122.3 kg
[~2022-03-06 10:22] MED LIST changes: +ALBU8.5H INH; +ARIP1TAB6 PO; +BUSP30TA PO; +ERGO500029 PO; +FERR32TA PO; +GLUC1KIT IM; +HYDR-3363 PO; +METO1TAB32 PO; +NITR4TASL SL; +NYST1POW9 TOP; +ONDA4TAB6 PO; +SUMA50TA2 PO; +TORS100T PO; +TRAZ-257 PO; +TRIA1CR80 TOP; -VANCOMYCIN HCL 1,000 MG, VIAL MATE ADAPTER 1 EACH in NS 250 ML IV ONE; +ZOLP5TAB PO
[2022-03-06 12:23] LABS: BASO # 0.1 10^3/uL (0.0-0.2); BASO % 0.8 % (0.0-1.0); EOS # 0.4 10^3/uL (0.0-0.5); EOS % 3.1 % (0.0-3.0); HEMATOCRIT 35.3 % (36.0-47.0); HEMOGLOBIN 11.6 g/dl (12.0-15.5); LYMPH # 3.3 10^3/uL (1.5-5.0); LYMPH % 24.9 % (24.0-44.0); MEAN CORPUSCULAR HGB CONC 32.9 g/dl (32.0-36.5); MEAN CORPUSCULAR VOLUME 88.3 fl (80.0-96.0); MONO # 0.7 10^3/uL (0.0-0.8); MONO % 5.1 % (2.0-8.0); NEUTROPHILS # 8.4 10^3/uL (1.5-8.5); NEUTROPHILS % 64.6 % (36.0-66.0); PLATELET COUNT, AUTOMATED 405 10^3/uL (150-450)
[2022-03-06 12:47] LABS: ALBUMIN 3.4 GM/DL (3.2-5.2); ALT/SGPT 13 U/L (12-78); BILIRUBIN,DIRECT 0.2 MG/DL (0.0-0.2); BILIRUBIN,TOTAL 0.8 MG/DL (0.2-1.0); BLOOD UREA NITROGEN 16 MG/DL (7-18); C REACTIVE PROTEIN QUANTITATIV 3.78 MG/DL (0.00-0.30); CALCIUM LEVEL 9.5 MG/DL (8.5-10.1); CARBON DIOXIDE LEVEL 34 MEQ/L (21-32); CHLORIDE LEVEL 96 MEQ/L (98-107); CREATININE FOR GFR 0.86 MG/DL (0.55-1.30); GLOMERULAR FILTRATION RATE > 60.0 (>51); GLUCOSE, FASTING 183 MG/DL (70-100); LIPASE 46 U/L (73-393); POTASSIUM SERUM 3.8 MEQ/L (3.5-5.1); SODIUM LEVEL 134 MEQ/L (136-145); TOTAL PROTEIN 7.5 GM/DL (6.4-8.2)
[2022-03-06 12:47] LABS: CK-MB VALUE MASS < 1.0 NG/ML (<3.6); CPK CREATINE PHOSPHOKINASE 55 U/L (26-192); MB/CK RELATIVE INDEX 1.82 (< OR =4)
[2022-03-06 12:52] LABS: ERYTHROCYTE SEDIMENTATION RATE 82 mm/hr (0-30)
[2022-03-06 15:30] VITALS: BP 132/65
== END 2022-03-06 15:45 | disposition home or self-care (01) ==
LOC: M ED 10:22
DX: R22.42 Localized swelling, mass and lump, left lower limb (principal); A49.01 Methicillin susceptible Staphylococcus aureus infection, unspecified site; E11.9 Type 2 diabetes mellitus without complications; I10 Essential (primary) hypertension; J45.909 Unspecified asthma, uncomplicated; E78.5 Hyperlipidemia, unspecified; F31.9 Bipolar disorder, unspecified; F43.10 Post-traumatic stress disorder, unspecified; G47.33 Obstructive sleep apnea (adult) (pediatric); I25.2 Old myocardial infarction; K21.9 Gastro-esophageal reflux disease without esophagitis; Z86.718 Personal history of other venous thrombosis and embolism; Z98.84 Bariatric surgery status; Z88.5 Allergy status to narcotic agent; Z91.018 Allergy to other foods; Z91.040 Latex allergy status; Z79.899 Other long term (current) drug therapy; Z79.4 Long term (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 insulin; Z79.01 Long term (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 anticoagulants; Z79.2 Long term (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 antibiotics

== ENCOUNTER → 2022-03-11 | Outpatient (REF) | payer MEDICARE, MEDICAID ==
[2022-03-11 11:58] LABS: HEMATOCRIT 32.5 % (36.0-47.0); HEMOGLOBIN 10.6 g/dl (12.0-15.5); MEAN CORPUSCULAR HEMOGLOBIN 29.6 pg (27.0-33.0); MEAN CORPUSCULAR HGB CONC 32.6 g/dl (32.0-36.5); MEAN CORPUSCULAR VOLUME 90.8 fl (80.0-96.0); PLATELET COUNT, AUTOMATED 350 10^3/uL (150-450); RED BLOOD COUNT 3.58 10^6/uL (4.00-5.40); WHITE BLOOD COUNT 7.2 10^3/uL (4.0-10.0)
[2022-03-11 12:19] LABS: BLOOD UREA NITROGEN 11 MG/DL (7-18); C REACTIVE PROTEIN QUANTITATIV 1.99 MG/DL (0.00-0.30); CARBON DIOXIDE LEVEL 32 MEQ/L (21-32); CHLORIDE LEVEL 98 MEQ/L (98-107); CREATININE FOR GFR 0.78 MG/DL (0.55-1.30); GLOMERULAR FILTRATION RATE > 60.0 (>51); GLUCOSE, FASTING 232 MG/DL (70-100); POTASSIUM SERUM 3.7 MEQ/L (3.5-5.1); SODIUM LEVEL 136 MEQ/L (136-145)
[2022-03-11 13:10] LABS: ERYTHROCYTE SEDIMENTATION RATE 63 mm/hr (0-30)
== END ==
LOC: M SHH 11:25
PROVIDERS: ATTEND Internal Medicine Infectious Disease
DX: L03.90 Cellulitis, unspecified (principal); R78.81 Bacteremia; I10 Essential (primary) hypertension; E11.40 Type 2 diabetes mellitus with diabetic neuropathy, unspecified

== ENCOUNTER → 2022-03-18 | Outpatient (REF) | payer MEDICARE, MEDICAID ==
[2022-03-18 16:13] LABS: HEMATOCRIT 34.4 % (36.0-47.0); HEMOGLOBIN 11.1 g/dl (12.0-15.5); MEAN CORPUSCULAR HEMOGLOBIN 29.1 pg (27.0-33.0); MEAN CORPUSCULAR HGB CONC 32.3 g/dl (32.0-36.5); MEAN CORPUSCULAR VOLUME 90.3 fl (80.0-96.0); PLATELET COUNT, AUTOMATED 424 10^3/uL (150-450); RED BLOOD COUNT 3.81 10^6/uL (4.00-5.40); WHITE BLOOD COUNT 8.8 10^3/uL (4.0-10.0)
[2022-03-18 16:40] LABS: BLOOD UREA NITROGEN 12 MG/DL (7-18); C REACTIVE PROTEIN QUANTITATIV 0.88 MG/DL (0.00-0.30); CALCIUM LEVEL 9.7 MG/DL (8.5-10.1); CARBON DIOXIDE LEVEL 27 MEQ/L (21-32); CHLORIDE LEVEL 103 MEQ/L (98-107); CREATININE FOR GFR 0.71 MG/DL (0.55-1.30); GLOMERULAR FILTRATION RATE > 60.0 (>51); GLUCOSE, FASTING 156 MG/DL (70-100); POTASSIUM SERUM 3.7 MEQ/L (3.5-5.1); SODIUM LEVEL 136 MEQ/L (136-145)
[2022-03-18 17:36] LABS: ERYTHROCYTE SEDIMENTATION RATE 56 mm/hr (0-30)
== END ==
LOC: M SHH 15:50
PROVIDERS: ATTEND Internal Medicine Infectious Disease
DX: L03.90 Cellulitis, unspecified (principal); R78.81 Bacteremia; I10 Essential (primary) hypertension; E11.40 Type 2 diabetes mellitus with diabetic neuropathy, unspecified

== ENCOUNTER → 2022-03-25 | Outpatient (REF) | payer MEDICARE, MEDICAID ==
[~2022-03-25] MED LIST changes: +ALBU2.5V10 INH; -ALBU83IN INH
[2022-03-25 15:49] LABS: HEMATOCRIT 32.1 % (36.0-47.0); HEMOGLOBIN 10.6 g/dl (12.0-15.5); MEAN CORPUSCULAR HEMOGLOBIN 29.2 pg (27.0-33.0); MEAN CORPUSCULAR VOLUME 88.4 fl (80.0-96.0); PLATELET COUNT, AUTOMATED 297 10^3/uL (150-450); RED BLOOD COUNT 3.63 10^6/uL (4.00-5.40); WHITE BLOOD COUNT 7.8 10^3/uL (4.0-10.0)
[2022-03-25 16:04] LABS: BLOOD UREA NITROGEN 13 MG/DL (7-18); C REACTIVE PROTEIN QUANTITATIV 2.53 MG/DL (0.00-0.30); CALCIUM LEVEL 9.3 MG/DL (8.5-10.1); CARBON DIOXIDE LEVEL 29 MEQ/L (21-32); CHLORIDE LEVEL 100 MEQ/L (98-107); CREATININE FOR GFR 0.79 MG/DL (0.55-1.30); GLOMERULAR FILTRATION RATE > 60.0 (>51); GLUCOSE, FASTING 357 MG/DL (70-100); POTASSIUM SERUM 3.8 MEQ/L (3.5-5.1); SODIUM LEVEL 136 MEQ/L (136-145)
[2022-03-25 16:16] LABS: ERYTHROCYTE SEDIMENTATION RATE 67 mm/hr (0-30)
== END ==
LOC: M SHH 15:20
PROVIDERS: ATTEND Internal Medicine Infectious Disease
DX: R78.81 Bacteremia (principal); I10 Essential (primary) hypertension; L03.90 Cellulitis, unspecified; E11.40 Type 2 diabetes mellitus with diabetic neuropathy, unspecified

== ENCOUNTER → 2022-04-02 | Outpatient (CLI) | payer MEDICARE, MEDICAID ==
[2022-04-02 10:28] LABS: BASO # 0.1 10^3/uL (0.0-0.2); BASO % 0.8 % (0.0-1.0); EOS # 0.3 10^3/uL (0.0-0.5); EOS % 2.6 % (0.0-3.0); HEMATOCRIT 40.4 % (36.0-47.0); HEMOGLOBIN 12.9 g/dl (12.0-15.5); LYMPH # 3.6 10^3/uL (1.5-5.0); LYMPH % 32.9 % (24.0-44.0); MEAN CORPUSCULAR HEMOGLOBIN 28.2 pg (27.0-33.0); MEAN CORPUSCULAR HGB CONC 31.9 g/dl (32.0-36.5); MEAN CORPUSCULAR VOLUME 88.2 fl (80.0-96.0); MONO # 0.5 10^3/uL (0.0-0.8); MONO % 4.8 % (2.0-8.0); NEUTROPHILS # 6.4 10^3/uL (1.5-8.5); NEUTROPHILS % 58.6 % (36.0-66.0); PLATELET COUNT, AUTOMATED 419 10^3/uL (150-450); RED BLOOD COUNT 4.58 10^6/uL (4.00-5.40)
[2022-04-02 11:04] LABS: ERYTHROCYTE SEDIMENTATION RATE 63 mm/hr (0-30)
== END ==
LOC: M PLALAB 08:16
PROVIDERS: ATTEND Internal Medicine Infectious Disease
DX: A49.01 Methicillin susceptible Staphylococcus aureus infection, unspecified site (principal)

== ENCOUNTER → 2022-04-17 | Outpatient (REF) | payer MEDICARE, MEDICAID ==
[2022-04-17 14:09] LABS: BASO # 0.1 10^3/uL (0.0-0.2); BASO % 0.8 % (0.0-1.0); EOS # 0.2 10^3/uL (0.0-0.5); EOS % 2.9 % (0.0-3.0); HEMATOCRIT 33.5 % (36.0-47.0); HEMOGLOBIN 10.9 g/dl (12.0-15.5); LYMPH % 25.4 % (24.0-44.0); MEAN CORPUSCULAR HEMOGLOBIN 28.6 pg (27.0-33.0); MEAN CORPUSCULAR HGB CONC 32.5 g/dl (32.0-36.5); MEAN CORPUSCULAR VOLUME 87.9 fl (80.0-96.0); MONO # 0.3 10^3/uL (0.0-0.8); MONO % 4.3 % (2.0-8.0); NEUTROPHILS # 5.3 10^3/uL (1.5-8.5); NEUTROPHILS % 66.2 % (36.0-66.0); PLATELET COUNT, AUTOMATED 331 10^3/uL (150-450); RED BLOOD COUNT 3.81 10^6/uL (4.00-5.40)
[2022-04-17 14:41] LABS: BLOOD UREA NITROGEN 7 MG/DL (7-18); C REACTIVE PROTEIN QUANTITATIV 2.87 MG/DL (0.00-0.30); CALCIUM LEVEL 8.5 MG/DL (8.5-10.1); CARBON DIOXIDE LEVEL 28 MEQ/L (21-32); CHLORIDE LEVEL 103 MEQ/L (98-107); CREATININE FOR GFR 0.92 MG/DL (0.55-1.30); GLOMERULAR FILTRATION RATE > 60.0 (>51); GLUCOSE, FASTING 332 MG/DL (70-100); POTASSIUM SERUM 4.1 MEQ/L (3.5-5.1); SODIUM LEVEL 137 MEQ/L (136-145)
[2022-04-17 14:55] LABS: ERYTHROCYTE SEDIMENTATION RATE 60 mm/hr (0-30)
== END ==
LOC: M SHH 13:50
PROVIDERS: ATTEND Internal Medicine Infectious Disease
DX: A49.01 Methicillin susceptible Staphylococcus aureus infection, unspecified site (principal)

== ENCOUNTER → 2022-04-24 | Outpatient (REF) | payer MEDICARE, MEDICAID ==
[2022-04-24 14:57] LABS: BASO # 0.1 10^3/uL (0.0-0.2); BASO % 0.8 % (0.0-1.0); EOS # 0.2 10^3/uL (0.0-0.5); EOS % 2.5 % (0.0-3.0); HEMATOCRIT 36.1 % (36.0-47.0); HEMOGLOBIN 11.7 g/dl (12.0-15.5); LYMPH # 2.6 10^3/uL (1.5-5.0); LYMPH % 31.3 % (24.0-44.0); MEAN CORPUSCULAR HEMOGLOBIN 28.3 pg (27.0-33.0); MEAN CORPUSCULAR HGB CONC 32.4 g/dl (32.0-36.5); MEAN CORPUSCULAR VOLUME 87.4 fl (80.0-96.0); MONO # 0.3 10^3/uL (0.0-0.8); NEUTROPHILS # 5.2 10^3/uL (1.5-8.5); NEUTROPHILS % 61.2 % (36.0-66.0); PLATELET COUNT, AUTOMATED 376 10^3/uL (150-450); RED BLOOD COUNT 4.13 10^6/uL (4.00-5.40); WHITE BLOOD COUNT 8.4 10^3/uL (4.0-10.0)
[2022-04-24 15:22] LABS: BLOOD UREA NITROGEN 12 MG/DL (7-18); C REACTIVE PROTEIN QUANTITATIV 2.27 MG/DL (0.00-0.30); CALCIUM LEVEL 8.6 MG/DL (8.5-10.1); CARBON DIOXIDE LEVEL 30 MEQ/L (21-32); CHLORIDE LEVEL 97 MEQ/L (98-107); CREATININE FOR GFR 0.92 MG/DL (0.55-1.30); GLOMERULAR FILTRATION RATE > 60.0 (>51); GLUCOSE, FASTING 358 MG/DL (70-100); POTASSIUM SERUM 4.4 MEQ/L (3.5-5.1); SODIUM LEVEL 134 MEQ/L (136-145)
[2022-04-24 15:30] LABS: ERYTHROCYTE SEDIMENTATION RATE 58 mm/hr (0-30)
== END ==
LOC: M SHH 14:29
PROVIDERS: ATTEND Internal Medicine Infectious Disease
DX: A49.01 Methicillin susceptible Staphylococcus aureus infection, unspecified site (principal)

== ENCOUNTER → 2022-05-03 | Outpatient (REF) | payer MEDICARE, MEDICAID ==
[2022-05-03 14:23] LABS: BASO # 0.1 10^3/uL (0.0-0.2); BASO % 0.9 % (0.0-1.0); EOS # 0.2 10^3/uL (0.0-0.5); EOS % 2.3 % (0.0-3.0); HEMATOCRIT 34.9 % (36.0-47.0); HEMOGLOBIN 11.4 g/dl (12.0-15.5); LYMPH # 3.1 10^3/uL (1.5-5.0); MEAN CORPUSCULAR HEMOGLOBIN 27.5 pg (27.0-33.0); MEAN CORPUSCULAR HGB CONC 32.7 g/dl (32.0-36.5); MEAN CORPUSCULAR VOLUME 84.3 fl (80.0-96.0); MONO # 0.4 10^3/uL (0.0-0.8); MONO % 4.4 % (2.0-8.0); NEUTROPHILS % 56.9 % (36.0-66.0); PLATELET COUNT, AUTOMATED 419 10^3/uL (150-450); RED BLOOD COUNT 4.14 10^6/uL (4.00-5.40); WHITE BLOOD COUNT 8.8 10^3/uL (4.0-10.0)
[2022-05-03 14:40] LABS: ERYTHROCYTE SEDIMENTATION RATE 68 mm/hr (0-30)
== END ==
LOC: M SHH 13:53
PROVIDERS: ATTEND Internal Medicine Infectious Disease
DX: A49.01 Methicillin susceptible Staphylococcus aureus infection, unspecified site (principal)

== ENCOUNTER 2022-05-20 11:08 | Inpatient (IN) | payer MEDICARE, MEDICAID ==
[~2022-05-20] VITALS: Ht 170.2 cm; Wt 113.0 kg
[2022-05-20] MEDS ORDERED: NS 1,000 ML IV ONE ×2 (12:05→14:05)
[2022-05-20 12:37] LABS: HEMATOCRIT 28.2 % (36.0-47.0); MEAN CORPUSCULAR HEMOGLOBIN 26.6 pg (27.0-33.0); MEAN CORPUSCULAR HGB CONC 31.9 g/dl (32.0-36.5); MEAN CORPUSCULAR VOLUME 83.4 fl (80.0-96.0); PLATELET COUNT, AUTOMATED 336 10^3/uL (150-450); RED BLOOD COUNT 3.38 10^6/uL (4.00-5.40); WHITE BLOOD COUNT 15.5 10^3/uL (4.0-10.0)
[2022-05-20] MEDS ORDERED: ONDANSETRON 4MG 2ML VIAL IV ONE (12:40)
[2022-05-20] MEDS ORDERED: ACETAMINOPHEN 325 MG TAB PO ONE (12:50)
[2022-05-20 13:02] LABS: LYMPHOCYTES 6 % (16-44); MONOCYTES 2 % (0-5); NEUTROPHILS 91 % (28-66); PLATELET ESTIMATE NORMAL (NORMAL)
[2022-05-20 13:04] LABS: ERYTHROCYTE SEDIMENTATION RATE 128 mm/hr (0-30)
[2022-05-20 13:18] LABS: CK-MB VALUE MASS < 1.0 NG/ML (<3.6); CPK CREATINE PHOSPHOKINASE 79 U/L (26-192); MB/CK RELATIVE INDEX 1.27 (< OR =4)
[2022-05-20 13:32] LABS: ALBUMIN 1.9 GM/DL (3.2-5.2); BILIRUBIN,DIRECT 0.2 MG/DL (0.0-0.2); BILIRUBIN,TOTAL 0.6 MG/DL (0.2-1.0); C REACTIVE PROTEIN QUANTITATIV 35.7 MG/DL (0.00-0.30); TOTAL PROTEIN 6.8 GM/DL (6.4-8.2)
[2022-05-20] MEDS ORDERED: VANCOMYCIN HCL 2,000 MG in D5W 500 ML IV ONE (13:55)
[2022-05-20] MEDS ORDERED: VANCOMYCIN HCL 1,000 MG, VIAL MATE ADAPTER 1 EACH in NS 250 ML IV ONE ×2 (14:00→15:00)
[2022-05-20] MEDS ORDERED: NS 500 ML IV ONE (14:05)
[2022-05-20] MEDS ORDERED: PERCOCET 5MG/325MG TAB PO ONE (14:45)
[2022-05-20] MEDS ORDERED: HumuLIN R (REGULAR) INSULIN (NovoLIN R) **100U/ML** PER UNIT IV ONE (15:10)
[2022-05-20] MEDS ORDERED: VANCOMYCIN HCL 1,000 MG, VIAL MATE ADAPTER 1 EACH in NS 250 ML IV SCH (16:05)
[2022-05-20] MEDS ORDERED: GLUCAGON INJ 1MG VIAL SC PRN (16:40)
[2022-05-20] MEDS ORDERED: DEXTROSE 50% 50 ML SYRINGE IV PRN (16:40)
[2022-05-20] MEDS ORDERED: GLUCOSE 4GM CHEW TABLET PO PRN (16:40)
[2022-05-20] MEDS ORDERED: HOME MED LIST COMPLETE! XX SCH (17:15)
[2022-05-20] MEDS: NS 1,000 ML IV SCH (20:20)
[2022-05-20] MEDS: INSULIN LISPRO (NovoLOG) PER UNIT SC SCH ×2 (20:54→21:00)
[2022-05-21] MEDS: NS 1,000 ML IV SCH ×2 (00:25→17:44)
[2022-05-21] MEDS: VANCOMYCIN HCL 750 MG, VIAL MATE ADAPTER 1 EACH in D5W 250 ML IV SCH ×2 (01:11→12:55)
[2022-05-21] MEDS: PERCOCET 5MG/325MG TAB PO PRN ×3 (02:13→18:50)
[2022-05-21] MEDS: VANCOMYCIN HCL 500 MG in D5W MINI-BAG PLUS 100 ML IV SCH ×2 (02:22→14:31)
[2022-05-21 06:17] LABS: HEMOGLOBIN 8.1 g/dl (12.0-15.5); MEAN CORPUSCULAR HEMOGLOBIN 26.7 pg (27.0-33.0); MEAN CORPUSCULAR HGB CONC 32.4 g/dl (32.0-36.5); MEAN CORPUSCULAR VOLUME 82.5 fl (80.0-96.0); PLATELET COUNT, AUTOMATED 326 10^3/uL (150-450); RED BLOOD COUNT 3.03 10^6/uL (4.00-5.40); WHITE BLOOD COUNT 15.8 10^3/uL (4.0-10.0)
[2022-05-21 06:56] LABS: ALBUMIN 1.6 GM/DL (3.2-5.2); ALT/SGPT 16 U/L (12-78); BILIRUBIN,TOTAL 0.6 MG/DL (0.2-1.0); BLOOD UREA NITROGEN 18 MG/DL (7-18); CALCIUM LEVEL 8.1 MG/DL (8.5-10.1); CARBON DIOXIDE LEVEL 28 MEQ/L (21-32); CHLORIDE LEVEL 97 MEQ/L (98-107); CREATININE FOR GFR 0.75 MG/DL (0.55-1.30); GLOMERULAR FILTRATION RATE > 60.0 (>51); GLUCOSE, FASTING 288 MG/DL (70-100); POTASSIUM SERUM 3.2 MEQ/L (3.5-5.1); SODIUM LEVEL 131 MEQ/L (136-145); TOTAL PROTEIN 5.9 GM/DL (6.4-8.2)
[2022-05-21] MEDS: INSULIN LISPRO (NovoLOG) PER UNIT SC SCH ×4 (08:15→21:00)
[2022-05-21] MEDS ORDERED: POTASSIUM CHLORIDE 10MEQ SR TABLET PO ONE (14:20)
[2022-05-21 14:53] VITALS: BP 125/78
[2022-05-21] MEDS ORDERED: MIRALAX *UNIT DOSE* 17GM PACKET PO PRN (18:00)
[2022-05-21] MEDS ORDERED: SUMAtriptan SUCCINATE 25 MG TAB PO PRN (18:50)
[2022-05-21] MEDS ORDERED: NITROGLYCERIN 0.4 MG SUBL TABLET SL PRN (18:50)
[2022-05-21] MEDS: DOCUSATE SODIUM 100MG CAPSULE PO SCH (20:06)
[2022-05-21] MEDS: ROSUVASTATIN 10 MG TAB (CRESTOR) PO SCH (20:06)
[2022-05-21] MEDS: busPIRone 10 MG TAB PO SCH (20:06)
[2022-05-21] MEDS: LACTOBACILLUS ACIDOPHILUS CAP (BACID) PO SCH (20:06)
[2022-05-21] MEDS: APIXABAN 5 MG TAB (ELIQUIS) PO SCH (20:06)
[2022-05-21] MEDS: FERROUS GLUCONATE 324 MG TAB PO SCH (20:06)
[2022-05-21] MEDS: traZODone 100 MG TAB PO SCH (20:07)
[2022-05-21] MEDS: CETIRIZINE (ZyrTEC) 10 MG TAB PO SCH (20:07)
[2022-05-21] MEDS: FOLIC ACID 1MG TAB PO SCH (20:07)
[2022-05-21] MEDS: GABAPENTIN 300 MG CAP PO SCH (20:07)
[2022-05-21] MEDS: METOPROLOL SUCC *XL* 25MG TAB (TopROL *XL*) PO SCH (20:07)
[2022-05-21] MEDS: OMEPRAZOLE 20MG CAP PO SCH (20:10)
[2022-05-21] MEDS: TORSEMIDE 100 MG TAB PO SCH (20:11)
[2022-05-21] MEDS: MULTIVITAMINS/MINERALS THERAP 1 TAB PO SCH (20:11)
[2022-05-21] MEDS: oxyBUTYnin *DITROPAN XL* 5 MG TABCR PO SCH (20:21)
[2022-05-21] MEDS: SPIRONOLACTONE 25 MG TAB PO SCH (20:21)
[2022-05-21] MEDS: LEVEMIR (INSULIN DETEMIR) 1 UNITS/0.01ML SC SCH (21:03)
[2022-05-21 22:00] VITALS: BP 100/56
[2022-05-22] VITALS (7 sets, daily range): BP systolic 91–123; BP diastolic 47–66; O2SAT 96–97
[2022-05-22] MEDS: traMADol 50 MG TAB PO PRN
[2022-05-22] MEDS: VANCOMYCIN HCL 750 MG, VIAL MATE ADAPTER 1 EACH in D5W 250 ML IV SCH ×3
[2022-05-22] MEDS: VANCOMYCIN HCL 500 MG in D5W MINI-BAG PLUS 100 ML IV SCH (01:12)
[2022-05-22] MEDS: PERCOCET 5MG/325MG TAB PO PRN ×2 (02:08→14:28)
[2022-05-22] MEDS: NS 1,000 ML IV SCH ×3 (05:45→23:36)
[2022-05-22] MEDS ORDERED: ONDANSETRON 4MG 2ML VIAL IV PRN ×2 (05:55→22:30)
[2022-05-22 06:25] LABS: HEMATOCRIT 28.2 % (36.0-47.0); HEMOGLOBIN 9.1 g/dl (12.0-15.5); MEAN CORPUSCULAR HEMOGLOBIN 26.5 pg (27.0-33.0); MEAN CORPUSCULAR HGB CONC 32.3 g/dl (32.0-36.5); RED BLOOD COUNT 3.44 10^6/uL (4.00-5.40); WHITE BLOOD COUNT 22.9 10^3/uL (4.0-10.0)
[2022-05-22 06:55] LABS: PLATELET COUNT, AUTOMATED 438 10^3/uL (150-450)
[2022-05-22 07:04] LABS: BLOOD UREA NITROGEN 12 MG/DL (7-18); CALCIUM LEVEL 8.7 MG/DL (8.5-10.1); CARBON DIOXIDE LEVEL 31 MEQ/L (21-32); CHLORIDE LEVEL 92 MEQ/L (98-107); CREATININE FOR GFR 0.88 MG/DL (0.55-1.30); GLOMERULAR FILTRATION RATE > 60.0 (>51); GLUCOSE, FASTING 297 MG/DL (70-100); POTASSIUM SERUM 3.2 MEQ/L (3.5-5.1); SODIUM LEVEL 130 MEQ/L (136-145)
[2022-05-22] MEDS ORDERED: POTASSIUM CHLORIDE 10MEQ SR TABLET PO ONE (07:30)
[2022-05-22 07:55] LABS: ERYTHROCYTE SEDIMENTATION RATE 126 mm/hr (0-30)
[2022-05-22] MEDS: APIXABAN 5 MG TAB (ELIQUIS) PO SCH ×2 (08:32→21:00)
[2022-05-22] MEDS: INSULIN LISPRO (NovoLOG) PER UNIT SC SCH ×4 (08:32→21:00)
[2022-05-22] MEDS: busPIRone 10 MG TAB PO SCH ×2 (08:33→21:00)
[2022-05-22] MEDS: DOCUSATE SODIUM 100MG CAPSULE PO SCH ×2 (08:33→21:00)
[2022-05-22] MEDS: TORSEMIDE 100 MG TAB PO SCH (08:34)
[2022-05-22] MEDS: FOLIC ACID 1MG TAB PO SCH (08:34)
[2022-05-22] MEDS: MULTIVITAMINS/MINERALS THERAP 1 TAB PO SCH (08:34)
[2022-05-22] MEDS: GABAPENTIN 300 MG CAP PO SCH ×3 (08:34→21:00)
[2022-05-22] MEDS: OMEPRAZOLE 20MG CAP PO SCH (08:34)
[2022-05-22] MEDS: FERROUS GLUCONATE 324 MG TAB PO SCH (08:34)
[2022-05-22] MEDS: LACTOBACILLUS ACIDOPHILUS CAP (BACID) PO SCH ×2 (08:34→21:00)
[2022-05-22 09:18] LABS: NT-PRO BNP 1160 PG/ML (<125)
[2022-05-22] MEDS: PIPERACILLIN/TAZOBACTAM SOD 4.5 GM in D5W MINI-BAG PLUS 50 ML IV SCH ×4 (10:20→23:36)
[2022-05-22] MEDS ORDERED: propofoL 200 MG/20 ML VIAL As Ordered ONE (20:48)
[2022-05-22] MEDS ORDERED: fentaNYL 100 MCG/2 ML INJECTION As Ordered ONE (20:48)
[2022-05-22] MEDS ORDERED: LIDOCAINE 2% INJ 100 MG/5 ML SYRINGE As Ordered ONE (20:48)
[2022-05-22] MEDS ORDERED: KETOROLAC 60MG 2ML VIAL As Ordered ONE (20:48)
[2022-05-22] MEDS ORDERED: MIDAZOLAM INJ 2MG/2ML VIAL (J2250 PER 1MG) As Ordered ONE (20:50)
[2022-05-22] MEDS: traZODone 100 MG TAB PO SCH (21:00)
[2022-05-22] MEDS: CETIRIZINE (ZyrTEC) 10 MG TAB PO SCH (21:00)
[2022-05-22] MEDS: LEVEMIR (INSULIN DETEMIR) 1 UNITS/0.01ML SC SCH (21:00)
[2022-05-22] MEDS: METOPROLOL SUCC *XL* 25MG TAB (TopROL *XL*) PO SCH (21:00)
[2022-05-22] MEDS: ROSUVASTATIN 10 MG TAB (CRESTOR) PO SCH (21:00)
[2022-05-22] MEDS: oxyBUTYnin *DITROPAN XL* 5 MG TABCR PO SCH (21:00)
[2022-05-22] MEDS ORDERED: BUPIVACAINE HCL 0.5% 30ML VIAL As Ordered ONE (21:02)
[2022-05-22] MEDS ORDERED: LIDOCAINE 1% MDV 20ML VIAL As Ordered ONE (21:02)
[2022-05-22] MEDS ORDERED: oxyCODONE 5MG TAB PO PRN (22:30)
[2022-05-22] MEDS ORDERED: fentaNYL 100 MCG/2 ML INJECTION IV PRN (22:30)
[2022-05-22] MEDS ORDERED: LR 1,000 ML IV SCH (22:30)
[2022-05-23] VITALS (21 sets, daily range): BP systolic 76–131; BP diastolic 22–67
[2022-05-23] MEDS: PIPERACILLIN/TAZOBACTAM SOD 4.5 GM in D5W MINI-BAG PLUS 50 ML IV SCH ×4 (04:29→22:28)
[2022-05-23 06:20] LABS: HEMATOCRIT 23.9 % (36.0-47.0); HEMOGLOBIN 7.5 g/dl (12.0-15.5); MEAN CORPUSCULAR HEMOGLOBIN 25.9 pg (27.0-33.0); MEAN CORPUSCULAR HGB CONC 31.4 g/dl (32.0-36.5); MEAN CORPUSCULAR VOLUME 82.4 fl (80.0-96.0); PLATELET COUNT, AUTOMATED 367 10^3/uL (150-450); WHITE BLOOD COUNT 18.6 10^3/uL (4.0-10.0)
[2022-05-23 06:41] LABS: CALCIUM LEVEL 7.8 MG/DL (8.5-10.1); CREATININE FOR GFR 1.04 MG/DL (0.55-1.30); GLOMERULAR FILTRATION RATE 59.2 (>51); POTASSIUM SERUM 3.5 MEQ/L (3.5-5.1)
[2022-05-23] MEDS: INSULIN LISPRO (NovoLOG) PER UNIT SC SCH ×4 (06:56→20:47)
[2022-05-23] MEDS: TORSEMIDE 100 MG TAB PO SCH (09:29)
[2022-05-23] MEDS: FOLIC ACID 1MG TAB PO SCH (09:29)
[2022-05-23] MEDS: busPIRone 10 MG TAB PO SCH ×2 (09:29→20:45)
[2022-05-23] MEDS: SPIRONOLACTONE 25 MG TAB PO SCH (09:29)
[2022-05-23] MEDS: MULTIVITAMINS/MINERALS THERAP 1 TAB PO SCH (09:29)
[2022-05-23] MEDS: LACTOBACILLUS ACIDOPHILUS CAP (BACID) PO SCH ×2 (09:30→20:46)
[2022-05-23] MEDS: GABAPENTIN 300 MG CAP PO SCH ×3 (09:30→20:47)
[2022-05-23] MEDS: OMEPRAZOLE 20MG CAP PO SCH (09:30)
[2022-05-23] MEDS: DOCUSATE SODIUM 100MG CAPSULE PO SCH ×2 (09:30→20:46)
[2022-05-23] MEDS: FERROUS GLUCONATE 324 MG TAB PO SCH (09:30)
[2022-05-23 10:37] LABS: INR 1.57; PROTHROMBIN TIME 19.2 SECONDS (12.7-14.5)
[2022-05-23 10:38] LABS: PARTIAL THROMBOPLASTIN TIME 40.9 SECONDS (25.9-37.0)
[2022-05-23] MEDS: NS 1,000 ML IV SCH ×2 (10:47→18:22)
[2022-05-23 11:04] LABS: PERCENT SATURATION 7.9 % (13.2-45.0)
[2022-05-23] MEDS ORDERED: LIDOCAINE 1% MDV 20ML VIAL As Ordered ONE (14:42)
[2022-05-23] MEDS: ACETAMINOPHEN TAB 650MG DOSE (2X325MG) PO PRN (17:42)
[2022-05-23] MEDS ORDERED: TORSEMIDE (DEMADEX) 50 MG PER 1/2 TAB PO SCH (20:27)
[2022-05-23] MEDS ORDERED: carisoprodoL 350 MG TAB PO ONE (20:30)
[2022-05-23] MEDS: METOPROLOL SUCC *XL* 25MG TAB (TopROL *XL*) PO SCH (20:42)
[2022-05-23] MEDS: ROSUVASTATIN 10 MG TAB (CRESTOR) PO SCH (20:46)
[2022-05-23] MEDS: oxyBUTYnin *DITROPAN XL* 5 MG TABCR PO SCH (20:46)
[2022-05-23] MEDS: LEVEMIR (INSULIN DETEMIR) 1 UNITS/0.01ML SC SCH (20:47)
[2022-05-23] MEDS: CETIRIZINE (ZyrTEC) 10 MG TAB PO SCH (20:47)
[2022-05-23] MEDS: traZODone 100 MG TAB PO SCH (20:48)
[2022-05-23] MEDS ORDERED: DOXYCYCLINE HYCLATE 100MG TABLET PO SCH (21:00)
[2022-05-23 23:01] LABS: HEMATOCRIT 29.1 % (36.0-47.0); HEMOGLOBIN 9.4 g/dl (12.0-15.5)
[2022-05-24] VITALS (25 sets, daily range): BP systolic 110–141; BP diastolic 53–67; O2SAT 90–96
[2022-05-24] MEDS: PIPERACILLIN/TAZOBACTAM SOD 4.5 GM in D5W MINI-BAG PLUS 50 ML IV SCH ×4 (04:29→21:47)
[2022-05-24 06:35] LABS: HEMATOCRIT 27.3 % (36.0-47.0); MEAN CORPUSCULAR HEMOGLOBIN 26.7 pg (27.0-33.0); PLATELET COUNT, AUTOMATED 389 10^3/uL (150-450); RED BLOOD COUNT 3.37 10^6/uL (4.00-5.40); WHITE BLOOD COUNT 14.6 10^3/uL (4.0-10.0)
[2022-05-24 06:54] LABS: BLOOD UREA NITROGEN 19 MG/DL (7-18); CALCIUM LEVEL 7.6 MG/DL (8.5-10.1); CARBON DIOXIDE LEVEL 34 MEQ/L (21-32); CHLORIDE LEVEL 95 MEQ/L (98-107); CREATININE FOR GFR 0.99 MG/DL (0.55-1.30); GLOMERULAR FILTRATION RATE > 60.0 (>51); GLUCOSE, FASTING 287 MG/DL (70-100); POTASSIUM SERUM 2.9 MEQ/L (3.5-5.1); SODIUM LEVEL 134 MEQ/L (136-145)
[2022-05-24] MEDS ORDERED: POTASSIUM CHLORIDE 10MEQ SR TABLET PO ONE (07:20)
[2022-05-24] MEDS: KCL 10MEQ/100ML SWI (KRUN) 10 MEQ in IV 1 EA IV SCH ×2 (08:20→11:06)
[2022-05-24] MEDS: LEVEMIR (INSULIN DETEMIR) 1 UNITS/0.01ML SC SCH ×2 (08:21→20:56)
[2022-05-24] MEDS: NS 1,000 ML IV SCH (08:21)
[2022-05-24] MEDS: INSULIN LISPRO (NovoLOG) PER UNIT SC SCH ×4 (08:22→20:55)
[2022-05-24] MEDS: DOCUSATE SODIUM 100MG CAPSULE PO SCH ×2 (08:22→20:55)
[2022-05-24] MEDS: OMEPRAZOLE 20MG CAP PO SCH (08:22)
[2022-05-24] MEDS: MULTIVITAMINS/MINERALS THERAP 1 TAB PO SCH (08:22)
[2022-05-24] MEDS: LACTOBACILLUS ACIDOPHILUS CAP (BACID) PO SCH ×2 (08:23→20:56)
[2022-05-24] MEDS: GABAPENTIN 300 MG CAP PO SCH ×3 (08:23→20:56)
[2022-05-24] MEDS: SPIRONOLACTONE 25 MG TAB PO SCH (08:23)
[2022-05-24] MEDS: FERROUS GLUCONATE 324 MG TAB PO SCH (08:23)
[2022-05-24] MEDS: busPIRone 10 MG TAB PO SCH ×2 (08:23→20:56)
[2022-05-24] MEDS ORDERED: TORSEMIDE (DEMADEX) 50 MG PER 1/2 TAB PO SCH (09:00)
[2022-05-24] MEDS: FOLIC ACID 1MG TAB PO SCH (11:06)
[2022-05-24 16:40] LABS: HEMATOCRIT 30.2 % (36.0-47.0); HEMOGLOBIN 9.7 g/dl (12.0-15.5); MEAN CORPUSCULAR HGB CONC 32.1 g/dl (32.0-36.5); MEAN CORPUSCULAR VOLUME 84.1 fl (80.0-96.0); PLATELET COUNT, AUTOMATED 399 10^3/uL (150-450); RED BLOOD COUNT 3.59 10^6/uL (4.00-5.40); WHITE BLOOD COUNT 12.8 10^3/uL (4.0-10.0)
[2022-05-24 17:22] LABS: CALCIUM LEVEL 7.6 MG/DL (8.5-10.1); CREATININE FOR GFR 1.09 MG/DL (0.55-1.30); GLOMERULAR FILTRATION RATE 56.1 (>51); MAGNESIUM LEVEL 1.8 MG/DL (1.8-2.4); POTASSIUM SERUM 3.2 MEQ/L (3.5-5.1)
[2022-05-24] MEDS: traZODone 100 MG TAB PO SCH (20:56)
[2022-05-24] MEDS: oxyBUTYnin *DITROPAN XL* 5 MG TABCR PO SCH (20:56)
[2022-05-24] MEDS: ROSUVASTATIN 10 MG TAB (CRESTOR) PO SCH (20:56)
[2022-05-24] MEDS: CETIRIZINE (ZyrTEC) 10 MG TAB PO SCH (20:56)
[2022-05-24] MEDS: METOPROLOL SUCC *XL* 25MG TAB (TopROL *XL*) PO SCH (20:57)
[2022-05-25] VITALS (12 sets, daily range): BP systolic 94–127; BP diastolic 46–59; O2SAT 89–91
[2022-05-25] MEDS: NS 1,000 ML IV SCH ×3 (01:55→20:03)
[2022-05-25] MEDS: PIPERACILLIN/TAZOBACTAM SOD 4.5 GM in D5W MINI-BAG PLUS 50 ML IV SCH ×4 (04:08→23:38)
[2022-05-25] MEDS: INSULIN LISPRO (NovoLOG) PER UNIT SC SCH ×4 (07:30→20:03)
[2022-05-25] MEDS ORDERED: POTASSIUM CHLORIDE 10MEQ SR TABLET PO ONE (08:00)
[2022-05-25] MEDS: LEVEMIR (INSULIN DETEMIR) 1 UNITS/0.01ML SC SCH (08:22)
[2022-05-25] MEDS: SPIRONOLACTONE 25 MG TAB PO SCH (08:25)
[2022-05-25] MEDS: OMEPRAZOLE 20MG CAP PO SCH (08:25)
[2022-05-25] MEDS: LACTOBACILLUS ACIDOPHILUS CAP (BACID) PO SCH ×2 (08:25→20:04)
[2022-05-25] MEDS: busPIRone 10 MG TAB PO SCH ×2 (08:25→20:05)
[2022-05-25] MEDS: FOLIC ACID 1MG TAB PO SCH (08:25)
[2022-05-25] MEDS: GABAPENTIN 300 MG CAP PO SCH ×3 (08:25→20:06)
[2022-05-25] MEDS: FERROUS GLUCONATE 324 MG TAB PO SCH (08:25)
[2022-05-25 08:26] LABS: HEMATOCRIT 28.1 % (36.0-47.0); HEMOGLOBIN 9.1 g/dl (12.0-15.5); MEAN CORPUSCULAR HEMOGLOBIN 27.2 pg (27.0-33.0); MEAN CORPUSCULAR HGB CONC 32.4 g/dl (32.0-36.5); MEAN CORPUSCULAR VOLUME 83.9 fl (80.0-96.0); PLATELET COUNT, AUTOMATED 451 10^3/uL (150-450); RED BLOOD COUNT 3.35 10^6/uL (4.00-5.40); WHITE BLOOD COUNT 11.4 10^3/uL (4.0-10.0)
[2022-05-25] MEDS: DOCUSATE SODIUM 100MG CAPSULE PO SCH ×2 (08:26→20:02)
[2022-05-25] MEDS: MULTIVITAMINS/MINERALS THERAP 1 TAB PO SCH (08:26)
[2022-05-25 08:48] LABS: BLOOD UREA NITROGEN 14 MG/DL (7-18); CALCIUM LEVEL 7.9 MG/DL (8.5-10.1); CARBON DIOXIDE LEVEL 33 MEQ/L (21-32); CHLORIDE LEVEL 101 MEQ/L (98-107); CREATININE FOR GFR 0.83 MG/DL (0.55-1.30); GLOMERULAR FILTRATION RATE > 60.0 (>51); GLUCOSE, FASTING 100 MG/DL (70-100); POTASSIUM SERUM 3.1 MEQ/L (3.5-5.1); SODIUM LEVEL 141 MEQ/L (136-145)
[2022-05-25] MEDS: traMADol 50 MG TAB PO PRN (16:33)
[2022-05-25] MEDS: traZODone 100 MG TAB PO SCH (20:04)
[2022-05-25] MEDS: ROSUVASTATIN 10 MG TAB (CRESTOR) PO SCH (20:05)
[2022-05-25] MEDS: CETIRIZINE (ZyrTEC) 10 MG TAB PO SCH (20:06)
[2022-05-25] MEDS: METOPROLOL SUCC *XL* 25MG TAB (TopROL *XL*) PO SCH (20:06)
[2022-05-25] MEDS: oxyBUTYnin *DITROPAN XL* 5 MG TABCR PO SCH (20:06)
[2022-05-25] MEDS: LOPERAMIDE 2 MG CAPLET PO PRN ×2 (20:06→23:38)
[2022-05-25] MEDS ORDERED: LEVEMIR (INSULIN DETEMIR) 1 UNITS/0.01ML SC SCH (21:00)
[2022-05-26] VITALS (18 sets, daily range): BP systolic 111–128; BP diastolic 56–62; O2SAT 95–100
[2022-05-26] MEDS: PIPERACILLIN/TAZOBACTAM SOD 4.5 GM in D5W MINI-BAG PLUS 50 ML IV SCH ×4 (03:24→21:08)
[2022-05-26 05:19] LABS: HEMATOCRIT 31.9 % (36.0-47.0); HEMOGLOBIN 9.9 g/dl (12.0-15.5); MEAN CORPUSCULAR HEMOGLOBIN 27.5 pg (27.0-33.0); MEAN CORPUSCULAR VOLUME 88.6 fl (80.0-96.0); PLATELET COUNT, AUTOMATED 388 10^3/uL (150-450); WHITE BLOOD COUNT 8.4 10^3/uL (4.0-10.0)
[2022-05-26 05:42] LABS: BLOOD UREA NITROGEN 12 MG/DL (7-18); CALCIUM LEVEL 8.1 MG/DL (8.5-10.1); CARBON DIOXIDE LEVEL 29 MEQ/L (21-32); CHLORIDE LEVEL 103 MEQ/L (98-107); CREATININE FOR GFR 0.74 MG/DL (0.55-1.30); GLOMERULAR FILTRATION RATE > 60.0 (>51); GLUCOSE, FASTING 74 MG/DL (70-100); POTASSIUM SERUM 3.1 MEQ/L (3.5-5.1); SODIUM LEVEL 137 MEQ/L (136-145)
[2022-05-26] MEDS: NS 1,000 ML IV SCH ×2 (05:55→17:03)
[2022-05-26] MEDS ORDERED: POTASSIUM CHLORIDE 10MEQ SR TABLET PO ONE ×2 (07:20→11:00)
[2022-05-26] MEDS: INSULIN LISPRO (NovoLOG) PER UNIT SC SCH ×4 (07:30→20:42)
[2022-05-26] MEDS: DOCUSATE SODIUM 100MG CAPSULE PO SCH ×2 (09:00→20:44)
[2022-05-26] MEDS: traMADol 50 MG TAB PO PRN (09:51)
[2022-05-26] MEDS: busPIRone 10 MG TAB PO SCH ×2 (09:51→20:42)
[2022-05-26] MEDS: SPIRONOLACTONE 25 MG TAB PO SCH (09:51)
[2022-05-26] MEDS: MULTIVITAMINS/MINERALS THERAP 1 TAB PO SCH (09:52)
[2022-05-26] MEDS: LACTOBACILLUS ACIDOPHILUS CAP (BACID) PO SCH ×2 (09:52→21:08)
[2022-05-26] MEDS: FERROUS GLUCONATE 324 MG TAB PO SCH (09:52)
[2022-05-26] MEDS: FOLIC ACID 1MG TAB PO SCH (09:52)
[2022-05-26] MEDS: GABAPENTIN 300 MG CAP PO SCH ×3 (09:52→20:43)
[2022-05-26] MEDS: OMEPRAZOLE 20MG CAP PO SCH (09:52)
[2022-05-26] MEDS: LOPERAMIDE 2 MG CAPLET PO PRN (09:52)
[2022-05-26] MEDS: LEVEMIR (INSULIN DETEMIR) 1 UNITS/0.01ML SC SCH (10:26)
[2022-05-26] MEDS: PERCOCET 5MG/325MG TAB PO PRN ×2 (10:29→17:45)
[2022-05-26] MEDS: traZODone 100 MG TAB PO SCH (20:42)
[2022-05-26] MEDS: oxyBUTYnin *DITROPAN XL* 5 MG TABCR PO SCH (20:43)
[2022-05-26] MEDS: CETIRIZINE (ZyrTEC) 10 MG TAB PO SCH (20:43)
[2022-05-26] MEDS: ROSUVASTATIN 10 MG TAB (CRESTOR) PO SCH (20:43)
[2022-05-26] MEDS: METOPROLOL SUCC *XL* 25MG TAB (TopROL *XL*) PO SCH (20:44)
[2022-05-26] MEDS ORDERED: LEVEMIR (INSULIN DETEMIR) 1 UNITS/0.01ML SC SCH (21:00)
[2022-05-27] VITALS (7 sets, daily range): BP systolic 104–144; BP diastolic 50–68
[2022-05-27] MEDS: PERCOCET 5MG/325MG TAB PO PRN ×3 (00:48→20:38)
[2022-05-27] MEDS: PIPERACILLIN/TAZOBACTAM SOD 4.5 GM in D5W MINI-BAG PLUS 50 ML IV SCH ×4 (03:59→22:43)
[2022-05-27] MEDS: NS 1,000 ML IV SCH (03:59)
[2022-05-27 07:04] LABS: HEMATOCRIT 29.1 % (36.0-47.0); HEMOGLOBIN 8.9 g/dl (12.0-15.5); MEAN CORPUSCULAR HEMOGLOBIN 26.6 pg (27.0-33.0); MEAN CORPUSCULAR HGB CONC 30.6 g/dl (32.0-36.5); MEAN CORPUSCULAR VOLUME 87.1 fl (80.0-96.0); PLATELET COUNT, AUTOMATED 486 10^3/uL (150-450); RED BLOOD COUNT 3.34 10^6/uL (4.00-5.40); WHITE BLOOD COUNT 9.8 10^3/uL (4.0-10.0)
[2022-05-27] MEDS: INSULIN LISPRO (NovoLOG) PER UNIT SC SCH ×4 (07:30→20:43)
[2022-05-27 07:37] LABS: BLOOD UREA NITROGEN 9 MG/DL (7-18); CALCIUM LEVEL 8.2 MG/DL (8.5-10.1); CARBON DIOXIDE LEVEL 32 MEQ/L (21-32); CHLORIDE LEVEL 104 MEQ/L (98-107); CREATININE FOR GFR 0.69 MG/DL (0.55-1.30); GLOMERULAR FILTRATION RATE > 60.0 (>51); GLUCOSE, FASTING 65 MG/DL (70-100); POTASSIUM SERUM 3.9 MEQ/L (3.5-5.1); SODIUM LEVEL 139 MEQ/L (136-145)
[2022-05-27] MEDS ORDERED: D5W/0.45% SODIUM CHLORIDE 1,000 ML IV SCH (08:00)
[2022-05-27] MEDS: FOLIC ACID 1MG TAB PO SCH ×2 (09:00→12:13)
[2022-05-27] MEDS: SPIRONOLACTONE 25 MG TAB PO SCH (09:00)
[2022-05-27] MEDS: MULTIVITAMINS/MINERALS THERAP 1 TAB PO SCH ×2 (09:00→12:13)
[2022-05-27] MEDS: LEVEMIR (INSULIN DETEMIR) 1 UNITS/0.01ML SC SCH ×2 (09:00→20:43)
[2022-05-27] MEDS: LACTOBACILLUS ACIDOPHILUS CAP (BACID) PO SCH ×3 (09:00→20:41)
[2022-05-27] MEDS: FERROUS GLUCONATE 324 MG TAB PO SCH ×2 (09:00→12:13)
[2022-05-27] MEDS: DOCUSATE SODIUM 100MG CAPSULE PO SCH ×2 (09:00→20:37)
[2022-05-27 09:04] LABS: HEMATOCRIT 29.8 % (36.0-47.0); HEMOGLOBIN 8.9 g/dl (12.0-15.5); MEAN CORPUSCULAR HEMOGLOBIN 26.2 pg (27.0-33.0); MEAN CORPUSCULAR HGB CONC 29.9 g/dl (32.0-36.5); MEAN CORPUSCULAR VOLUME 87.6 fl (80.0-96.0); PLATELET COUNT, AUTOMATED 493 10^3/uL (150-450)
[2022-05-27] MEDS: OMEPRAZOLE 20MG CAP PO SCH (09:40)
[2022-05-27] MEDS: busPIRone 10 MG TAB PO SCH ×2 (09:40→20:40)
[2022-05-27] MEDS: GABAPENTIN 300 MG CAP PO SCH ×3 (09:40→20:41)
[2022-05-27] MEDS: LOPERAMIDE 2 MG CAPLET PO PRN ×2 (16:28→18:33)
[2022-05-27] MEDS: METOPROLOL SUCC *XL* 25MG TAB (TopROL *XL*) PO SCH (20:37)
[2022-05-27] MEDS: oxyBUTYnin *DITROPAN XL* 5 MG TABCR PO SCH (20:40)
[2022-05-27] MEDS: traZODone 100 MG TAB PO SCH (20:41)
[2022-05-27] MEDS: ROSUVASTATIN 10 MG TAB (CRESTOR) PO SCH (20:41)
[2022-05-27] MEDS: CETIRIZINE (ZyrTEC) 10 MG TAB PO SCH (20:42)
[2022-05-28 03:30] VITALS: BP 108/55
[2022-05-28] MEDS: PIPERACILLIN/TAZOBACTAM SOD 4.5 GM in D5W MINI-BAG PLUS 50 ML IV SCH ×4 (04:21→21:39)
[2022-05-28 05:51] LABS: HEMATOCRIT 28.8 % (36.0-47.0); MEAN CORPUSCULAR HEMOGLOBIN 27.2 pg (27.0-33.0); MEAN CORPUSCULAR HGB CONC 31.3 g/dl (32.0-36.5); PLATELET COUNT, AUTOMATED 472 10^3/uL (150-450); RED BLOOD COUNT 3.31 10^6/uL (4.00-5.40); WHITE BLOOD COUNT 8.8 10^3/uL (4.0-10.0)
[2022-05-28 06:16] LABS: BLOOD UREA NITROGEN 8 MG/DL (7-18); CALCIUM LEVEL 8.3 MG/DL (8.5-10.1); CARBON DIOXIDE LEVEL 30 MEQ/L (21-32); CHLORIDE LEVEL 104 MEQ/L (98-107); GLOMERULAR FILTRATION RATE > 60.0 (>51); GLUCOSE, FASTING 166 MG/DL (70-100); POTASSIUM SERUM 4.2 MEQ/L (3.5-5.1); SODIUM LEVEL 137 MEQ/L (136-145)
[2022-05-28] MEDS: ALBUTEROL 90 MCG/ACT 8GM HFA INHALER INH PRN ×3 (07:40→15:21)
[2022-05-28] MEDS ORDERED: PERCOCET 5MG/325MG TAB PO ONE (08:00)
[2022-05-28 08:14] VITALS: BP 119/56
[2022-05-28] MEDS: DOCUSATE SODIUM 100MG CAPSULE PO SCH ×2 (09:00→21:41)
[2022-05-28] MEDS: INSULIN LISPRO (NovoLOG) PER UNIT SC SCH ×4 (09:50→21:00)
[2022-05-28] MEDS: LEVEMIR (INSULIN DETEMIR) 1 UNITS/0.01ML SC SCH ×2 (09:50→21:39)
[2022-05-28] MEDS: FERROUS GLUCONATE 324 MG TAB PO SCH (09:51)
[2022-05-28] MEDS: SPIRONOLACTONE 25 MG TAB PO SCH (09:51)
[2022-05-28] MEDS: GABAPENTIN 300 MG CAP PO SCH ×3 (09:51→21:41)
[2022-05-28] MEDS: MULTIVITAMINS/MINERALS THERAP 1 TAB PO SCH (09:52)
[2022-05-28] MEDS: OMEPRAZOLE 20MG CAP PO SCH (09:52)
[2022-05-28] MEDS: LACTOBACILLUS ACIDOPHILUS CAP (BACID) PO SCH ×2 (09:52→21:41)
[2022-05-28] MEDS: FOLIC ACID 1MG TAB PO SCH (09:52)
[2022-05-28] MEDS: busPIRone 10 MG TAB PO SCH ×2 (09:52→21:41)
[2022-05-28 12:08] VITALS: BP 120/59
[2022-05-28 16:08] VITALS: BP 125/58
[2022-05-28] MEDS: PERCOCET 5MG/325MG TAB PO PRN (16:26)
[2022-05-28 20:15] VITALS: BP 115/57
[2022-05-28] MEDS: ENOXAPARIN 40MG/0.4ML SYRINGE (J1650 PER 10MG) SC SCH (21:39)
[2022-05-28] MEDS: traZODone 100 MG TAB PO SCH (21:41)
[2022-05-28] MEDS: ROSUVASTATIN 10 MG TAB (CRESTOR) PO SCH (21:41)
[2022-05-28] MEDS: METOPROLOL SUCC *XL* 25MG TAB (TopROL *XL*) PO SCH (21:41)
[2022-05-28] MEDS: oxyBUTYnin *DITROPAN XL* 5 MG TABCR PO SCH (21:41)
[2022-05-28] MEDS: CETIRIZINE (ZyrTEC) 10 MG TAB PO SCH (21:42)
[2022-05-29 04:20] VITALS: BP 125/60
[2022-05-29 06:19] LABS: HEMATOCRIT 29.2 % (36.0-47.0); HEMOGLOBIN 9.1 g/dl (12.0-15.5); MEAN CORPUSCULAR HEMOGLOBIN 26.5 pg (27.0-33.0); MEAN CORPUSCULAR HGB CONC 31.2 g/dl (32.0-36.5); MEAN CORPUSCULAR VOLUME 84.9 fl (80.0-96.0); PLATELET COUNT, AUTOMATED 524 10^3/uL (150-450); RED BLOOD COUNT 3.44 10^6/uL (4.00-5.40); WHITE BLOOD COUNT 8.4 10^3/uL (4.0-10.0)
[2022-05-29 06:46] LABS: BLOOD UREA NITROGEN 8 MG/DL (7-18); CALCIUM LEVEL 8.5 MG/DL (8.5-10.1); CARBON DIOXIDE LEVEL 30 MEQ/L (21-32); CHLORIDE LEVEL 103 MEQ/L (98-107); CREATININE FOR GFR 0.72 MG/DL (0.55-1.30); GLOMERULAR FILTRATION RATE > 60.0 (>51); GLUCOSE, FASTING 142 MG/DL (70-100); POTASSIUM SERUM 3.8 MEQ/L (3.5-5.1); SODIUM LEVEL 137 MEQ/L (136-145)
[2022-05-29] MEDS: INSULIN LISPRO (NovoLOG) PER UNIT SC SCH ×4 (07:57→21:00)
[2022-05-29] MEDS: PERCOCET 5MG/325MG TAB PO PRN ×2 (07:58→15:23)
[2022-05-29 08:00] VITALS: BP 125/60
[2022-05-29] MEDS ORDERED: LIDOCAINE 1% MDV 20ML VIAL XX SCH (09:00)
[2022-05-29] MEDS ORDERED: cefTRIAXone SOD 2 GM VIAL (J0696 PER 250MG) IM SCH (09:00)
[2022-05-29] MEDS: cefTRIAXone SOD 2 GM in D5W MINI-BAG PLUS 50 ML IV SCH (09:37)
[2022-05-29] MEDS: MULTIVITAMINS/MINERALS THERAP 1 TAB PO SCH (09:38)
[2022-05-29] MEDS: DOCUSATE SODIUM 100MG CAPSULE PO SCH ×2 (09:38→21:00)
[2022-05-29] MEDS: FOLIC ACID 1MG TAB PO SCH (09:38)
[2022-05-29] MEDS: GABAPENTIN 300 MG CAP PO SCH ×3 (09:38→21:48)
[2022-05-29] MEDS: LACTOBACILLUS ACIDOPHILUS CAP (BACID) PO SCH ×2 (09:38→21:48)
[2022-05-29] MEDS: FERROUS GLUCONATE 324 MG TAB PO SCH (09:38)
[2022-05-29] MEDS: LEVEMIR (INSULIN DETEMIR) 1 UNITS/0.01ML SC SCH ×2 (09:38→21:47)
[2022-05-29] MEDS: ENOXAPARIN 40MG/0.4ML SYRINGE (J1650 PER 10MG) SC SCH ×2 (09:38→21:47)
[2022-05-29] MEDS: OMEPRAZOLE 20MG CAP PO SCH (09:38)
[2022-05-29] MEDS: busPIRone 10 MG TAB PO SCH ×2 (09:39→21:47)
[2022-05-29] MEDS: SPIRONOLACTONE 25 MG TAB PO SCH (09:39)
[2022-05-29 16:00] VITALS: BP 137/65
[2022-05-29 20:30] VITALS: BP 118/55
[2022-05-29] MEDS: traZODone 100 MG TAB PO SCH (21:48)
[2022-05-29] MEDS: METOPROLOL SUCC *XL* 25MG TAB (TopROL *XL*) PO SCH (21:48)
[2022-05-29] MEDS: ROSUVASTATIN 10 MG TAB (CRESTOR) PO SCH (21:48)
[2022-05-29] MEDS: CETIRIZINE (ZyrTEC) 10 MG TAB PO SCH (21:48)
[2022-05-29] MEDS: oxyBUTYnin *DITROPAN XL* 5 MG TABCR PO SCH (21:48)
[2022-05-30 05:04] VITALS: BP 117/58
[2022-05-30 05:53] LABS: HEMATOCRIT 29.4 % (36.0-47.0); HEMOGLOBIN 9.2 g/dl (12.0-15.5); MEAN CORPUSCULAR HGB CONC 31.3 g/dl (32.0-36.5); MEAN CORPUSCULAR VOLUME 86.2 fl (80.0-96.0); PLATELET COUNT, AUTOMATED 552 10^3/uL (150-450); RED BLOOD COUNT 3.41 10^6/uL (4.00-5.40); WHITE BLOOD COUNT 7.3 10^3/uL (4.0-10.0)
[2022-05-30 06:24] LABS: BLOOD UREA NITROGEN 7 MG/DL (7-18); CALCIUM LEVEL 8.9 MG/DL (8.5-10.1); CARBON DIOXIDE LEVEL 29 MEQ/L (21-32); CHLORIDE LEVEL 105 MEQ/L (98-107); CREATININE FOR GFR 0.62 MG/DL (0.55-1.30); GLOMERULAR FILTRATION RATE > 60.0 (>51); GLUCOSE, FASTING 97 MG/DL (70-100); POTASSIUM SERUM 4.4 MEQ/L (3.5-5.1); SODIUM LEVEL 137 MEQ/L (136-145)
[2022-05-30] MEDS: INSULIN LISPRO (NovoLOG) PER UNIT SC SCH ×4 (07:30→20:48)
[2022-05-30 08:00] VITALS: BP 123/60
[2022-05-30] MEDS: cefTRIAXone SOD 2 GM in D5W MINI-BAG PLUS 50 ML IV SCH (09:09)
[2022-05-30] MEDS: MULTIVITAMINS/MINERALS THERAP 1 TAB PO SCH (09:09)
[2022-05-30] MEDS: DOCUSATE SODIUM 100MG CAPSULE PO SCH ×2 (09:09→20:47)
[2022-05-30] MEDS: GABAPENTIN 300 MG CAP PO SCH ×3 (09:09→20:46)
[2022-05-30] MEDS: SPIRONOLACTONE 25 MG TAB PO SCH (09:09)
[2022-05-30] MEDS: FERROUS GLUCONATE 324 MG TAB PO SCH (09:09)
[2022-05-30] MEDS: FOLIC ACID 1MG TAB PO SCH (09:09)
[2022-05-30] MEDS: OMEPRAZOLE 20MG CAP PO SCH (09:09)
[2022-05-30] MEDS: LACTOBACILLUS ACIDOPHILUS CAP (BACID) PO SCH ×2 (09:09→20:46)
[2022-05-30] MEDS: busPIRone 10 MG TAB PO SCH ×2 (09:09→20:46)
[2022-05-30] MEDS: LEVEMIR (INSULIN DETEMIR) 1 UNITS/0.01ML SC SCH ×2 (09:10→20:47)
[2022-05-30] MEDS: PERCOCET 5MG/325MG TAB PO PRN ×2 (09:10→15:50)
[2022-05-30] MEDS: ENOXAPARIN 40MG/0.4ML SYRINGE (J1650 PER 10MG) SC SCH ×2 (09:11→20:47)
[2022-05-30 12:00] VITALS: BP 126/60
[2022-05-30] MEDS: traMADol 50 MG TAB PO PRN (12:25)
[2022-05-30 16:00] VITALS: BP 114/55
[2022-05-30 20:00] VITALS: BP 100/44
[2022-05-30] MEDS: ROSUVASTATIN 10 MG TAB (CRESTOR) PO SCH (20:46)
[2022-05-30] MEDS: traZODone 100 MG TAB PO SCH (20:46)
[2022-05-30] MEDS: oxyBUTYnin *DITROPAN XL* 5 MG TABCR PO SCH (20:46)
[2022-05-30] MEDS: CETIRIZINE (ZyrTEC) 10 MG TAB PO SCH (20:46)
[2022-05-30] MEDS: METOPROLOL SUCC *XL* 25MG TAB (TopROL *XL*) PO SCH (20:48)
[2022-05-31 04:00] VITALS: BP 94/50
[2022-05-31 05:45] LABS: HEMATOCRIT 30.2 % (36.0-47.0); HEMOGLOBIN 9.3 g/dl (12.0-15.5); MEAN CORPUSCULAR HEMOGLOBIN 26.2 pg (27.0-33.0); MEAN CORPUSCULAR HGB CONC 30.8 g/dl (32.0-36.5); MEAN CORPUSCULAR VOLUME 85.1 fl (80.0-96.0); PLATELET COUNT, AUTOMATED 560 10^3/uL (150-450); RED BLOOD COUNT 3.55 10^6/uL (4.00-5.40); WHITE BLOOD COUNT 6.9 10^3/uL (4.0-10.0)
[2022-05-31 06:13] LABS: BLOOD UREA NITROGEN 8 MG/DL (7-18); CALCIUM LEVEL 8.9 MG/DL (8.5-10.1); CARBON DIOXIDE LEVEL 29 MEQ/L (21-32); CHLORIDE LEVEL 103 MEQ/L (98-107); CREATININE FOR GFR 0.67 MG/DL (0.55-1.30); GLOMERULAR FILTRATION RATE > 60.0 (>51); GLUCOSE, FASTING 142 MG/DL (70-100); SODIUM LEVEL 135 MEQ/L (136-145)
[2022-05-31 08:00] VITALS: BP 105/52
[2022-05-31] MEDS: ENOXAPARIN 40MG/0.4ML SYRINGE (J1650 PER 10MG) SC SCH ×2 (08:57→20:32)
[2022-05-31] MEDS: LEVEMIR (INSULIN DETEMIR) 1 UNITS/0.01ML SC SCH ×2 (08:58→20:34)
[2022-05-31] MEDS: INSULIN LISPRO (NovoLOG) PER UNIT SC SCH ×4 (08:58→20:17)
[2022-05-31] MEDS: cefTRIAXone SOD 2 GM in D5W MINI-BAG PLUS 50 ML IV SCH (08:58)
[2022-05-31] MEDS: GABAPENTIN 300 MG CAP PO SCH ×3 (08:59→20:33)
[2022-05-31] MEDS: DOCUSATE SODIUM 100MG CAPSULE PO SCH ×2 (08:59→20:34)
[2022-05-31] MEDS: FOLIC ACID 1MG TAB PO SCH (08:59)
[2022-05-31] MEDS: busPIRone 10 MG TAB PO SCH ×2 (08:59→20:33)
[2022-05-31] MEDS: LACTOBACILLUS ACIDOPHILUS CAP (BACID) PO SCH ×2 (08:59→20:32)
[2022-05-31] MEDS: OMEPRAZOLE 20MG CAP PO SCH (08:59)
[2022-05-31] MEDS: MULTIVITAMINS/MINERALS THERAP 1 TAB PO SCH (08:59)
[2022-05-31] MEDS: SPIRONOLACTONE 25 MG TAB PO SCH (08:59)
[2022-05-31] MEDS: FERROUS GLUCONATE 324 MG TAB PO SCH (08:59)
[2022-05-31] MEDS: PERCOCET 5MG/325MG TAB PO PRN ×2 (09:06→20:33)
[2022-05-31] MEDS: MORPHINE 4 MG/ML 1ML VIAL/SYRINGE IV PRN (15:06)
[2022-05-31 15:52] VITALS: BP 113/56
[2022-05-31 20:00] VITALS: BP 136/60
[2022-05-31] MEDS: traZODone 100 MG TAB PO SCH (20:32)
[2022-05-31] MEDS: METOPROLOL SUCC *XL* 25MG TAB (TopROL *XL*) PO SCH (20:33)
[2022-05-31] MEDS: CETIRIZINE (ZyrTEC) 10 MG TAB PO SCH (20:33)
[2022-05-31] MEDS: ROSUVASTATIN 10 MG TAB (CRESTOR) PO SCH (20:33)
[2022-05-31] MEDS: oxyBUTYnin *DITROPAN XL* 5 MG TABCR PO SCH (20:34)
[2022-06-01 04:00] VITALS: BP 115/58
[2022-06-01] MEDS: INSULIN LISPRO (NovoLOG) PER UNIT SC SCH ×4 (07:30→20:04)
[2022-06-01] MEDS: OMEPRAZOLE 20MG CAP PO SCH (08:12)
[2022-06-01] MEDS: FOLIC ACID 1MG TAB PO SCH (08:12)
[2022-06-01] MEDS: MULTIVITAMINS/MINERALS THERAP 1 TAB PO SCH (08:12)
[2022-06-01] MEDS: FERROUS GLUCONATE 324 MG TAB PO SCH (08:12)
[2022-06-01] MEDS: SPIRONOLACTONE 25 MG TAB PO SCH (08:12)
[2022-06-01] MEDS: busPIRone 10 MG TAB PO SCH ×2 (08:12→21:01)
[2022-06-01] MEDS: LACTOBACILLUS ACIDOPHILUS CAP (BACID) PO SCH ×2 (08:12→21:01)
[2022-06-01] MEDS: GABAPENTIN 300 MG CAP PO SCH ×3 (08:12→21:02)
[2022-06-01] MEDS: LEVEMIR (INSULIN DETEMIR) 1 UNITS/0.01ML SC SCH ×2 (08:13→21:02)
[2022-06-01] MEDS: ENOXAPARIN 40MG/0.4ML SYRINGE (J1650 PER 10MG) SC SCH (08:13)
[2022-06-01] MEDS: cefTRIAXone SOD 2 GM in D5W MINI-BAG PLUS 50 ML IV SCH (08:15)
[2022-06-01 08:20] VITALS: BP 135/63
[2022-06-01] MEDS: DOCUSATE SODIUM 100MG CAPSULE PO SCH ×2 (08:24→19:22)
[2022-06-01] MEDS: PERCOCET 5MG/325MG TAB PO PRN ×2 (09:50→18:17)
[2022-06-01] MEDS: MORPHINE 4 MG/ML 1ML VIAL/SYRINGE IV PRN (13:15)
[2022-06-01 16:00] VITALS: BP 91/50
[2022-06-01 18:13] VITALS: BP 131/61
[2022-06-01 20:00] VITALS: BP 130/61
[2022-06-01] MEDS: METOPROLOL SUCC *XL* 25MG TAB (TopROL *XL*) PO SCH (21:02)
[2022-06-01] MEDS: oxyBUTYnin *DITROPAN XL* 5 MG TABCR PO SCH (21:02)
[2022-06-01] MEDS: traZODone 100 MG TAB PO SCH (21:02)
[2022-06-01] MEDS: ROSUVASTATIN 10 MG TAB (CRESTOR) PO SCH (21:02)
[2022-06-01] MEDS: CETIRIZINE (ZyrTEC) 10 MG TAB PO SCH (21:04)
[2022-06-02 04:00] VITALS: BP 119/61
[2022-06-02 07:39] LABS: BASO # 0.1 10^3/uL (0.0-0.2); BASO % 1.2 % (0.0-1.0); EOS # 0.2 10^3/uL (0.0-0.5); HEMATOCRIT 29.2 % (36.0-47.0); LYMPH # 2.3 10^3/uL (1.5-5.0); LYMPH % 40.1 % (24.0-44.0); MEAN CORPUSCULAR HEMOGLOBIN 26.2 pg (27.0-33.0); MEAN CORPUSCULAR HGB CONC 30.8 g/dl (32.0-36.5); MEAN CORPUSCULAR VOLUME 84.9 fl (80.0-96.0); MONO # 0.5 10^3/uL (0.0-0.8); MONO % 8.3 % (2.0-8.0); NEUTROPHILS # 2.7 10^3/uL (1.5-8.5); PLATELET COUNT, AUTOMATED 558 10^3/uL (150-450); RED BLOOD COUNT 3.44 10^6/uL (4.00-5.40); WHITE BLOOD COUNT 5.6 10^3/uL (4.0-10.0)
[2022-06-02 07:59] LABS: BLOOD UREA NITROGEN 8 MG/DL (7-18); CALCIUM LEVEL 9.1 MG/DL (8.5-10.1); CARBON DIOXIDE LEVEL 27 MEQ/L (21-32); CHLORIDE LEVEL 106 MEQ/L (98-107); CREATININE FOR GFR 0.67 MG/DL (0.55-1.30); GLOMERULAR FILTRATION RATE > 60.0 (>51); GLUCOSE, FASTING 123 MG/DL (70-100); SODIUM LEVEL 139 MEQ/L (136-145)
[2022-06-02 08:00] VITALS: BP 111/56
[2022-06-02] MEDS: cefTRIAXone SOD 2 GM in D5W MINI-BAG PLUS 50 ML IV SCH (08:41)
[2022-06-02] MEDS: LEVEMIR (INSULIN DETEMIR) 1 UNITS/0.01ML SC SCH (08:42)
[2022-06-02] MEDS: LACTOBACILLUS ACIDOPHILUS CAP (BACID) PO SCH ×2 (08:42→20:11)
[2022-06-02] MEDS: INSULIN LISPRO (NovoLOG) PER UNIT SC SCH ×4 (08:42→20:02)
[2022-06-02] MEDS: busPIRone 10 MG TAB PO SCH ×2 (08:42→20:11)
[2022-06-02] MEDS: MULTIVITAMINS/MINERALS THERAP 1 TAB PO SCH (08:42)
[2022-06-02] MEDS: FOLIC ACID 1MG TAB PO SCH (08:43)
[2022-06-02] MEDS: PERCOCET 5MG/325MG TAB PO PRN ×2 (08:43→16:05)
[2022-06-02] MEDS: FERROUS GLUCONATE 324 MG TAB PO SCH (08:43)
[2022-06-02] MEDS: GABAPENTIN 300 MG CAP PO SCH ×3 (08:43→20:11)
[2022-06-02] MEDS: SPIRONOLACTONE 25 MG TAB PO SCH (08:43)
[2022-06-02] MEDS: DOCUSATE SODIUM 100MG CAPSULE PO SCH ×2 (08:43→20:12)
[2022-06-02] MEDS: OMEPRAZOLE 20MG CAP PO SCH (08:43)
[2022-06-02] MEDS: MORPHINE 4 MG/ML 1ML VIAL/SYRINGE IV PRN (12:07)
[2022-06-02 15:52] VITALS: BP 138/60
[2022-06-02 20:02] VITALS: BP 129/59
[2022-06-02] MEDS: ROSUVASTATIN 10 MG TAB (CRESTOR) PO SCH (20:11)
[2022-06-02] MEDS: CETIRIZINE (ZyrTEC) 10 MG TAB PO SCH (20:11)
[2022-06-02] MEDS: traZODone 100 MG TAB PO SCH (20:11)
[2022-06-02] MEDS: METOPROLOL SUCC *XL* 25MG TAB (TopROL *XL*) PO SCH (20:12)
[2022-06-02] MEDS: oxyBUTYnin *DITROPAN XL* 5 MG TABCR PO SCH (20:13)
[2022-06-02] MEDS ORDERED: LEVEMIR (INSULIN DETEMIR) 1 UNITS/0.01ML SC ONE (21:00)
[2022-06-02] MEDS ORDERED: ENOXAPARIN 40MG/0.4ML SYRINGE (J1650 PER 10MG) SC ONE (21:00)
[2022-06-03] VITALS (10 sets, daily range): BP systolic 109–153; BP diastolic 55–70
[2022-06-03] MEDS: PERCOCET 5MG/325MG TAB PO PRN (02:40)
[2022-06-03 05:08] LABS: BASO # 0.1 10^3/uL (0.0-0.2); BASO % 1.1 % (0.0-1.0); EOS # 0.1 10^3/uL (0.0-0.5); EOS % 2.1 % (0.0-3.0); HEMATOCRIT 28.2 % (36.0-47.0); HEMOGLOBIN 8.9 g/dl (12.0-15.5); LYMPH # 2.4 10^3/uL (1.5-5.0); LYMPH % 42.4 % (24.0-44.0); MEAN CORPUSCULAR HEMOGLOBIN 27.3 pg (27.0-33.0); MEAN CORPUSCULAR HGB CONC 31.6 g/dl (32.0-36.5); MEAN CORPUSCULAR VOLUME 86.5 fl (80.0-96.0); MONO # 0.4 10^3/uL (0.0-0.8); NEUTROPHILS # 2.6 10^3/uL (1.5-8.5); NEUTROPHILS % 47.2 % (36.0-66.0); PLATELET COUNT, AUTOMATED 513 10^3/uL (150-450); RED BLOOD COUNT 3.26 10^6/uL (4.00-5.40); WHITE BLOOD COUNT 5.6 10^3/uL (4.0-10.0)
[2022-06-03 05:21] LABS: INR 1.13
[2022-06-03 05:44] LABS: BLOOD UREA NITROGEN 9 MG/DL (7-18); CALCIUM LEVEL 8.7 MG/DL (8.5-10.1); CARBON DIOXIDE LEVEL 27 MEQ/L (21-32); CHLORIDE LEVEL 107 MEQ/L (98-107); CREATININE FOR GFR 0.73 MG/DL (0.55-1.30); GLOMERULAR FILTRATION RATE > 60.0 (>51); GLUCOSE, FASTING 189 MG/DL (70-100); POTASSIUM SERUM 4.2 MEQ/L (3.5-5.1); SODIUM LEVEL 139 MEQ/L (136-145)
[2022-06-03] MEDS ORDERED: D5W/0.45% SODIUM CHLORIDE 1,000 ML IV SCH (06:00)
[2022-06-03] MEDS ORDERED: KETOROLAC 30 MG/ML 1ML VIAL IV ONE ×2 (07:35→17:55)
[2022-06-03] MEDS ORDERED: LORazepam 2 MG/ML VIAL IV STA (07:35)
[2022-06-03] MEDS ORDERED: MORPHINE 10 MG/ML 1ML VIAL IV ONE ×2 (07:35→17:55)
[2022-06-03] MEDS: DOCUSATE SODIUM 100MG CAPSULE PO SCH ×2 (07:39→21:29)
[2022-06-03] MEDS: LACTOBACILLUS ACIDOPHILUS CAP (BACID) PO SCH ×2 (07:39→21:28)
[2022-06-03] MEDS: busPIRone 10 MG TAB PO SCH ×2 (07:39→21:30)
[2022-06-03] MEDS: SPIRONOLACTONE 25 MG TAB PO SCH (07:39)
[2022-06-03] MEDS: OMEPRAZOLE 20MG CAP PO SCH (07:40)
[2022-06-03] MEDS: FOLIC ACID 1MG TAB PO SCH (07:40)
[2022-06-03] MEDS: FERROUS GLUCONATE 324 MG TAB PO SCH (07:40)
[2022-06-03] MEDS: GABAPENTIN 300 MG CAP PO SCH ×3 (07:40→21:29)
[2022-06-03] MEDS: MULTIVITAMINS/MINERALS THERAP 1 TAB PO SCH (07:40)
[2022-06-03] MEDS: INSULIN LISPRO (NovoLOG) PER UNIT SC SCH ×4 (08:05→21:00)
[2022-06-03] MEDS: cefTRIAXone SOD 2 GM in D5W MINI-BAG PLUS 50 ML IV SCH (08:06)
[2022-06-03] MEDS ORDERED: fentaNYL 250 MCG/5 ML INJECTION As Ordered ONE (11:24)
[2022-06-03] MEDS ORDERED: BUPIVACAINE/EPIN 0.5% 30 ML VIAL As Ordered ONE (11:24)
[2022-06-03] MEDS ORDERED: MIDAZOLAM INJ 2MG/2ML VIAL (J2250 PER 1MG) As Ordered ONE (11:25)
[2022-06-03] MEDS ORDERED: ROCURONIUM BROMIDE 50 MG/5 ML VIAL As Ordered ONE (11:26)
[2022-06-03] MEDS ORDERED: LIDOCAINE 2% 100MG/5ML SDV (FOR ANES.) As Ordered ONE (11:26)
[2022-06-03] MEDS ORDERED: propofoL 200 MG/20 ML VIAL As Ordered ONE (11:26)
[2022-06-03] MEDS ORDERED: ePHEDrine SULFATE 25 MG/5 ML(5MG/ML) SYRINGE As Ordered ONE (11:54)
[2022-06-03] MEDS ORDERED: METOCLOPRAMIDE INJ 10MG/2ML VIAL (J2765 PER 1) As Ordered ONE (12:22)
[2022-06-03] MEDS ORDERED: ONDANSETRON 4MG 2ML VIAL As Ordered ONE (12:22)
[2022-06-03] MEDS ORDERED: ACETAMINOPHEN 1000MG 100ML IV BTL (OFIRMEV) (J0131 PER 10MG) As Ordered ONE (12:38)
[2022-06-03] MEDS ORDERED: SUGAMMADEX SODIUM 500 MG/5 ML VIAL (BRIDION) As Ordered ONE (13:22)
[2022-06-03] MEDS ORDERED: LACRILUBE (AKWA TEARS) OPHTH OINT 3.5 GM As Ordered ONE (13:33)
[2022-06-03] MEDS ORDERED: METOCLOPRAMIDE INJ 10MG/2ML VIAL (J2765 PER 1) IV PRN (13:45)
[2022-06-03] MEDS ORDERED: MORPHINE 2 MG/ML 1ML VIAL IV PRN ×2 (13:45→15:05)
[2022-06-03] MEDS ORDERED: ONDANSETRON 4MG 2ML VIAL IV PRN (13:45)
[2022-06-03] MEDS ORDERED: LR 1,000 ML IV SCH (13:45)
[2022-06-03] MEDS ORDERED: KETOROLAC 60MG 2ML VIAL As Ordered ONE (13:46)
[2022-06-03] MEDS: fentaNYL 100 MCG/2 ML INJECTION IV PRN ×4 (14:20→14:52)
[2022-06-03] MEDS: oxyCODONE 5MG TAB PO PRN ×2 (14:21→14:51)
[2022-06-03] MEDS: MORPHINE 4 MG/ML 1ML VIAL/SYRINGE IV PRN (16:27)
[2022-06-03] MEDS ORDERED: PERCOCET 5MG/325MG TAB PO ONE (17:55)
[2022-06-03] MEDS: MORPHINE 10 MG/ML 1ML VIAL IV PRN (19:52)
[2022-06-03] MEDS: oxyBUTYnin *DITROPAN XL* 5 MG TABCR PO SCH (21:28)
[2022-06-03] MEDS: traZODone 100 MG TAB PO SCH (21:29)
[2022-06-03] MEDS: ROSUVASTATIN 10 MG TAB (CRESTOR) PO SCH (21:29)
[2022-06-03] MEDS: METOPROLOL SUCC *XL* 25MG TAB (TopROL *XL*) PO SCH (21:29)
[2022-06-03] MEDS: ENOXAPARIN 40MG/0.4ML SYRINGE (J1650 PER 10MG) SC SCH (21:29)
[2022-06-03] MEDS: CETIRIZINE (ZyrTEC) 10 MG TAB PO SCH (21:30)
[2022-06-03] MEDS: LEVEMIR (INSULIN DETEMIR) 1 UNITS/0.01ML SC SCH (21:30)
[2022-06-04] VITALS: BP 110/66
[2022-06-04] MEDS: MORPHINE 10 MG/ML 1ML VIAL IV PRN ×6 (00:15→20:18)
[2022-06-04 04:00] VITALS: BP 137/69
[2022-06-04 05:06] LABS: BASO # 0.1 10^3/uL (0.0-0.2); BASO % 1.1 % (0.0-1.0); EOS # 0.2 10^3/uL (0.0-0.5); EOS % 2.4 % (0.0-3.0); HEMATOCRIT 29.2 % (36.0-47.0); HEMOGLOBIN 8.8 g/dl (12.0-15.5); LYMPH # 1.3 10^3/uL (1.5-5.0); LYMPH % 19.2 % (24.0-44.0); MEAN CORPUSCULAR HEMOGLOBIN 26.3 pg (27.0-33.0); MEAN CORPUSCULAR HGB CONC 30.1 g/dl (32.0-36.5); MEAN CORPUSCULAR VOLUME 87.2 fl (80.0-96.0); MONO # 0.3 10^3/uL (0.0-0.8); MONO % 4.5 % (2.0-8.0); NEUTROPHILS # 4.8 10^3/uL (1.5-8.5); NEUTROPHILS % 72.2 % (36.0-66.0); PLATELET COUNT, AUTOMATED 422 10^3/uL (150-450); RED BLOOD COUNT 3.35 10^6/uL (4.00-5.40); WHITE BLOOD COUNT 6.6 10^3/uL (4.0-10.0)
[2022-06-04] MEDS: ACETAMINOPHEN TAB 650MG DOSE (2X325MG) PO PRN (05:11)
[2022-06-04 05:45] LABS: BLOOD UREA NITROGEN 13 MG/DL (7-18); CARBON DIOXIDE LEVEL 26 mmol/L (20-29); CHLORIDE LEVEL 106 MEQ/L (98-107); CREATININE FOR GFR 0.74 MG/DL (0.55-1.30); GLOMERULAR FILTRATION RATE > 60.0 (>51); GLUCOSE, FASTING 193 MG/DL (70-100); POTASSIUM SERUM 4.6 MEQ/L (3.5-5.1); SODIUM LEVEL 137 MEQ/L (136-145)
[2022-06-04 05:46] LABS: CALCIUM LEVEL 8.5 MG/DL (8.5-10.1)
[2022-06-04] MEDS: PERCOCET 5MG/325MG TAB PO PRN ×2 (06:47→12:19)
[2022-06-04 08:01] VITALS: BP 110/57
[2022-06-04] MEDS: ENOXAPARIN 40MG/0.4ML SYRINGE (J1650 PER 10MG) SC SCH ×2 (09:22→20:17)
[2022-06-04] MEDS: LEVEMIR (INSULIN DETEMIR) 1 UNITS/0.01ML SC SCH ×2 (09:23→20:17)
[2022-06-04] MEDS: INSULIN LISPRO (NovoLOG) PER UNIT SC SCH ×4 (09:23→20:19)
[2022-06-04] MEDS: SPIRONOLACTONE 25 MG TAB PO SCH (09:23)
[2022-06-04] MEDS: OMEPRAZOLE 20MG CAP PO SCH (09:23)
[2022-06-04] MEDS: FERROUS GLUCONATE 324 MG TAB PO SCH (09:24)
[2022-06-04] MEDS: LACTOBACILLUS ACIDOPHILUS CAP (BACID) PO SCH ×2 (09:24→20:15)
[2022-06-04] MEDS: busPIRone 10 MG TAB PO SCH ×2 (09:24→20:14)
[2022-06-04] MEDS: MULTIVITAMINS/MINERALS THERAP 1 TAB PO SCH (09:24)
[2022-06-04] MEDS: GABAPENTIN 300 MG CAP PO SCH ×3 (09:24→20:16)
[2022-06-04] MEDS: DOCUSATE SODIUM 100MG CAPSULE PO SCH ×2 (09:24→20:15)
[2022-06-04] MEDS: cefTRIAXone SOD 2 GM in D5W MINI-BAG PLUS 50 ML IV SCH (09:25)
[2022-06-04] MEDS: FOLIC ACID 1MG TAB PO SCH (09:25)
[2022-06-04 16:06] VITALS: BP 119/58
[2022-06-04 20:00] VITALS: BP 120/56
[2022-06-04] MEDS: CETIRIZINE (ZyrTEC) 10 MG TAB PO SCH (20:15)
[2022-06-04] MEDS: ROSUVASTATIN 10 MG TAB (CRESTOR) PO SCH (20:15)
[2022-06-04] MEDS: traZODone 100 MG TAB PO SCH (20:15)
[2022-06-04 20:16] VITALS: BP 120/56
[2022-06-04] MEDS: METOPROLOL SUCC *XL* 25MG TAB (TopROL *XL*) PO SCH (20:16)
[2022-06-04] MEDS: oxyBUTYnin *DITROPAN XL* 5 MG TABCR PO SCH (20:16)
[2022-06-05 00:25] VITALS: BP 134/69
[2022-06-05] MEDS: MORPHINE 10 MG/ML 1ML VIAL IV PRN (02:25)
[2022-06-05 06:00] VITALS: BP 129/58
[2022-06-05 06:09] LABS: BASO % 0.6 % (0.0-1.0); EOS # 0.1 10^3/uL (0.0-0.5); EOS % 1.9 % (0.0-3.0); HEMOGLOBIN 7.9 g/dl (12.0-15.5); LYMPH # 2.3 10^3/uL (1.5-5.0); LYMPH % 34.1 % (24.0-44.0); MEAN CORPUSCULAR HEMOGLOBIN 26.4 pg (27.0-33.0); MEAN CORPUSCULAR HGB CONC 30.4 g/dl (32.0-36.5); MONO # 0.5 10^3/uL (0.0-0.8); NEUTROPHILS # 3.8 10^3/uL (1.5-8.5); PLATELET COUNT, AUTOMATED 440 10^3/uL (150-450); RED BLOOD COUNT 2.99 10^6/uL (4.00-5.40); WHITE BLOOD COUNT 6.7 10^3/uL (4.0-10.0)
[2022-06-05 06:32] LABS: BLOOD UREA NITROGEN 11 MG/DL (7-18); CALCIUM LEVEL 8.4 MG/DL (8.5-10.1); CARBON DIOXIDE LEVEL 28 MEQ/L (21-32); CHLORIDE LEVEL 105 MEQ/L (98-107); CREATININE FOR GFR 0.57 MG/DL (0.55-1.30); GLOMERULAR FILTRATION RATE > 60.0 (>51); GLUCOSE, FASTING 161 MG/DL (70-100); POTASSIUM SERUM 4.6 MEQ/L (3.5-5.1); SODIUM LEVEL 139 MEQ/L (136-145)
[2022-06-05] MEDS: INSULIN LISPRO (NovoLOG) PER UNIT SC SCH ×2 (09:21→13:22)
[2022-06-05] MEDS: PERCOCET 5MG/325MG TAB PO PRN (09:22)
[2022-06-05] MEDS: busPIRone 10 MG TAB PO SCH (09:23)
[2022-06-05] MEDS: FERROUS GLUCONATE 324 MG TAB PO SCH (09:23)
[2022-06-05] MEDS: LACTOBACILLUS ACIDOPHILUS CAP (BACID) PO SCH (09:23)
[2022-06-05] MEDS: SPIRONOLACTONE 25 MG TAB PO SCH (09:23)
[2022-06-05] MEDS: ENOXAPARIN 40MG/0.4ML SYRINGE (J1650 PER 10MG) SC SCH (09:23)
[2022-06-05] MEDS: OMEPRAZOLE 20MG CAP PO SCH (09:23)
[2022-06-05] MEDS: DOCUSATE SODIUM 100MG CAPSULE PO SCH (09:23)
[2022-06-05] MEDS: MULTIVITAMINS/MINERALS THERAP 1 TAB PO SCH (09:23)
[2022-06-05] MEDS: GABAPENTIN 300 MG CAP PO SCH (09:23)
[2022-06-05] MEDS: LEVEMIR (INSULIN DETEMIR) 1 UNITS/0.01ML SC SCH (09:24)
[2022-06-05] MEDS: cefTRIAXone SOD 2 GM in D5W MINI-BAG PLUS 50 ML IV SCH (09:24)
[2022-06-05] MEDS: FOLIC ACID 1MG TAB PO SCH (09:26)
[2022-06-05] MEDS ORDERED: MIRA1POW3 PO (11:34)
[2022-06-05] MEDS ORDERED: COLA100C5 PO (11:34)
[2022-06-05] MEDS ORDERED: PERCOCET PO (11:34)
[2022-06-05] MEDS ORDERED: INSUDET SC ×2 (11:34)
[2022-06-05] MEDS: traMADol 50 MG TAB PO PRN (13:23)
[2022-07-02] MEDS ORDERED: INSUHUMDS SC (13:28)
== END 2022-06-05 14:36 | DRG 854 ==
LOC: M ED 11:08 → M ED INP 16:19 → ENRESERV 05-21 12:50 → M MSPAV 05-21 14:48 → M PCU 05-23 20:12 → M MSPAV 06-05 00:42
PROVIDERS: ADMIT Internal Medicine; ATTEND General Practice
PROC: 0QBP0ZZ Excision of Left Metatarsal, Open Approach (ICD-10-PCS; 2022-05-23)
PROC: 0JBQ0ZZ Excision of Right Foot Subcutaneous Tissue and Fascia, Open Approach (ICD-10-PCS; 2022-05-23)
PROC: 0Y6J0Z1 Detachment at Left Lower Leg, High, Open Approach (ICD-10-PCS; principal; 2022-06-03 10:30)
DX: A40.9 Streptococcal sepsis, unspecified (principal); E87.2 Acidosis; A52.16 Charcot's arthropathy (tabetic); I50.32 Chronic diastolic (congestive) heart failure; L97.429 Non-pressure chronic ulcer of left heel and midfoot with unspecified severity; L97.419 Non-pressure chronic ulcer of right heel and midfoot with unspecified severity; M86.172 Other acute osteomyelitis, left ankle and foot; I11.0 Hypertensive heart disease with heart failure; M32.9 Systemic lupus erythematosus, unspecified; E11.42 Type 2 diabetes mellitus with diabetic polyneuropathy; E11.621 Type 2 diabetes mellitus with foot ulcer; I27.20 Pulmonary hypertension, unspecified; E11.69 Type 2 diabetes mellitus with other specified complication; E11.319 Type 2 diabetes mellitus with unspecified diabetic retinopathy without macular edema; E66.01 Morbid (severe) obesity due to excess calories; D63.8 Anemia in other chronic diseases classified elsewhere; Z86.718 Personal history of other venous thrombosis and embolism; Z98.84 Bariatric surgery status; F31.9 Bipolar disorder, unspecified; F43.10 Post-traumatic stress disorder, unspecified; F34.1 Dysthymic disorder; M06.9 Rheumatoid arthritis, unspecified; Z90.49 Acquired absence of other specified parts of digestive tract; Z90.79 Acquired absence of other genital organ(s); Z89.429 Acquired absence of other toe(s), unspecified side; Z87.891 Personal history of nicotine dependence; Z20.822 Contact with and (suspected) exposure to COVID-19; Z79.4 Long term (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 insulin; Z79.899 Other long term (current) drug therapy; Z88.5 Allergy status to narcotic agent; Z91.040 Latex allergy status; Z91.018 Allergy to other foods

== ENCOUNTER 2022-06-05 10:46 | Inpatient (IN) | payer MEDICARE, OTHER ==
[~2022-06-05] VITALS: Ht 170.2 cm; Wt 115.6 kg
[2022-06-05] MEDS ORDERED: COLA100C5 PO (11:34)
[2022-06-05] MEDS ORDERED: MIRA1POW3 PO (11:34)
[2022-06-05] MEDS ORDERED: INSUDET SC ×2 (11:34)
[2022-06-05] MEDS ORDERED: PERCOCET PO (11:34)
[2022-06-05] MEDS ORDERED: DEXTROSE 50% 50 ML SYRINGE IV PRN (13:00)
[2022-06-05] MEDS ORDERED: GLUCAGON INJ 1MG VIAL SC PRN (13:00)
[2022-06-05] MEDS ORDERED: GLUCOSE 4GM CHEW TABLET PO PRN (13:00)
[2022-06-05] MEDS ORDERED: oxyCODONE 5MG TAB PO PRN (13:00)
[2022-06-05] MEDS ORDERED: MIRALAX *UNIT DOSE* 17GM PACKET PO PRN (13:00)
[2022-06-05] MEDS ORDERED: NITROGLYCERIN 0.4 MG SUBL TABLET SL PRN (13:00)
[2022-06-05] MEDS ORDERED: SUMAtriptan SUCCINATE 25 MG TAB PO PRN (13:00)
[2022-06-05 14:45] VITALS: BP 141/61
[2022-06-05] MEDS ORDERED: HOME MED LIST COMPLETE! XX SCH (15:10)
[2022-06-05] MEDS: COMBIVENT RESPIMAT 100-20MCG INHALER 4GM INH SCH ×2 (15:23→19:38)
[2022-06-05] MEDS ORDERED: FLEET ENEMA PR ONE (16:15)
[2022-06-05] MEDS ORDERED: PILL CUTTER 1 EACH XX PRN (16:25)
[2022-06-05] MEDS: MIRALAX *UNIT DOSE* 17GM PACKET PO SCH (16:37)
[2022-06-05] MEDS: ACETAMINOPHEN 500 MG TAB PO SCH ×2 (16:41→21:45)
[2022-06-05] MEDS: GABAPENTIN 300 MG CAP PO SCH ×2 (16:41→21:52)
[2022-06-05] MEDS: LACTOBACILLUS ACIDOPHILUS CAP (BACID) PO SCH (16:42)
[2022-06-05] MEDS: INSULIN LISPRO (NovoLOG) PER UNIT SC SCH ×2 (16:42→21:00)
[2022-06-05] MEDS: oxyCODONE 5MG TAB PO PRN (18:01)
[2022-06-05 19:59] VITALS: BP 130/59
[2022-06-05] MEDS ORDERED: SENNA 8.6 MG TAB (SENOKOT) PO SCH (21:00)
[2022-06-05] MEDS ORDERED: DOCUSATE SODIUM 100MG CAPSULE PO SCH (21:00)
[2022-06-05] MEDS: DOCUSATE SODIUM 100MG CAPSULE PO SCH (21:46)
[2022-06-05] MEDS: METOPROLOL SUCC *XL* 25MG TAB (TopROL *XL*) PO SCH (21:46)
[2022-06-05] MEDS: APIXABAN 5 MG TAB (ELIQUIS) PO SCH (21:46)
[2022-06-05] MEDS: traZODone 100 MG TAB PO SCH (21:46)
[2022-06-05] MEDS: CETIRIZINE (ZyrTEC) 10 MG TAB PO SCH (21:46)
[2022-06-05] MEDS: busPIRone 10 MG TAB PO SCH (21:47)
[2022-06-05] MEDS: oxyBUTYnin *DITROPAN XL* 5 MG TABCR PO SCH (21:47)
[2022-06-05] MEDS: PANTOPRAZOLE 40MG TAB (PROTONIX) PO SCH (21:47)
[2022-06-05] MEDS: SENNA 8.6 MG TAB (SENOKOT) PO SCH (21:47)
[2022-06-05] MEDS: LEVEMIR (INSULIN DETEMIR) 1 UNITS/0.01ML SC SCH (21:48)
[2022-06-06] MEDS: oxyCODONE 5MG TAB PO PRN ×3 (04:48→20:57)
[2022-06-06 05:58] VITALS: BP 168/74
[2022-06-06 06:13] VITALS: BP 148/65
[2022-06-06] MEDS: COMBIVENT RESPIMAT 100-20MCG INHALER 4GM INH SCH ×3 (07:36→19:18)
[2022-06-06 07:38] LABS: BASO % 0.6 % (0.0-1.0); EOS # 0.2 10^3/uL (0.0-0.5); EOS % 2.3 % (0.0-3.0); HEMATOCRIT 27.6 % (36.0-47.0); HEMOGLOBIN 8.4 g/dl (12.0-15.5); LYMPH # 2.1 10^3/uL (1.5-5.0); LYMPH % 31.7 % (24.0-44.0); MEAN CORPUSCULAR HEMOGLOBIN 26.8 pg (27.0-33.0); MEAN CORPUSCULAR HGB CONC 30.4 g/dl (32.0-36.5); MEAN CORPUSCULAR VOLUME 87.9 fl (80.0-96.0); MONO # 0.4 10^3/uL (0.0-0.8); MONO % 5.5 % (2.0-8.0); NEUTROPHILS # 3.9 10^3/uL (1.5-8.5); NEUTROPHILS % 59.6 % (36.0-66.0); PLATELET COUNT, AUTOMATED 418 10^3/uL (150-450); RED BLOOD COUNT 3.14 10^6/uL (4.00-5.40); WHITE BLOOD COUNT 6.6 10^3/uL (4.0-10.0)
[2022-06-06 08:17] LABS: ALBUMIN 1.8 GM/DL (3.2-5.2); ALT/SGPT 13 U/L (12-78); BILIRUBIN,TOTAL 0.1 MG/DL (0.2-1.0); BLOOD UREA NITROGEN 9 MG/DL (7-18); CALCIUM LEVEL 8.5 MG/DL (8.5-10.1); CARBON DIOXIDE LEVEL 28 MEQ/L (21-32); CHLORIDE LEVEL 107 MEQ/L (98-107); GLOMERULAR FILTRATION RATE > 60.0 (>51); GLUCOSE, FASTING 140 MG/DL (70-100); POTASSIUM SERUM 4.4 MEQ/L (3.5-5.1); SODIUM LEVEL 138 MEQ/L (136-145); TOTAL PROTEIN 6.5 GM/DL (6.4-8.2)
[2022-06-06] MEDS: MIRALAX *UNIT DOSE* 17GM PACKET PO SCH (08:34)
[2022-06-06] MEDS: LACTOBACILLUS ACIDOPHILUS CAP (BACID) PO SCH ×2 (08:35→18:00)
[2022-06-06] MEDS: INSULIN LISPRO (NovoLOG) PER UNIT SC SCH ×4 (08:35→20:57)
[2022-06-06] MEDS: LEVEMIR (INSULIN DETEMIR) 1 UNITS/0.01ML SC SCH ×2 (08:35→20:57)
[2022-06-06] MEDS: APIXABAN 5 MG TAB (ELIQUIS) PO SCH ×2 (08:36→20:56)
[2022-06-06] MEDS: FERROUS GLUCONATE 324 MG TAB PO SCH (08:36)
[2022-06-06] MEDS: GABAPENTIN 300 MG CAP PO SCH ×3 (08:36→20:56)
[2022-06-06] MEDS: DOCUSATE SODIUM 100MG CAPSULE PO SCH ×3 (08:36→20:53)
[2022-06-06] MEDS: PANTOPRAZOLE 40MG TAB (PROTONIX) PO SCH ×2 (08:36→20:56)
[2022-06-06] MEDS: FOLIC ACID 1MG TAB PO SCH (08:36)
[2022-06-06] MEDS: MULTIVITAMINS/MINERALS THERAP 1 TAB PO SCH (08:36)
[2022-06-06] MEDS: ACETAMINOPHEN 500 MG TAB PO SCH ×3 (08:36→20:54)
[2022-06-06] MEDS: busPIRone 10 MG TAB PO SCH ×2 (08:37→20:56)
[2022-06-06] MEDS: TORSEMIDE 10 MG TABLET PO SCH (08:37)
[2022-06-06] MEDS ORDERED: FLEET ENEMA PR ONE (10:00)
[2022-06-06 14:00] VITALS: BP 131/64
[2022-06-06] MEDS: ONDANSETRON 4MG ORAL DISINTEGRATING TAB PO PRN (14:19)
[2022-06-06] MEDS ORDERED: MORPHINE 4 MG/ML 1ML VIAL/SYRINGE IV ONE (16:30)
[2022-06-06 20:00] VITALS: BP 137/63
[2022-06-06] MEDS: traZODone 100 MG TAB PO SCH (20:53)
[2022-06-06] MEDS: SENNA 8.6 MG TAB (SENOKOT) PO SCH (20:55)
[2022-06-06] MEDS: METOPROLOL SUCC *XL* 25MG TAB (TopROL *XL*) PO SCH (20:55)
[2022-06-06] MEDS: CETIRIZINE (ZyrTEC) 10 MG TAB PO SCH (20:56)
[2022-06-06] MEDS: oxyBUTYnin *DITROPAN XL* 5 MG TABCR PO SCH (20:56)
[2022-06-07 00:30] LABS: HEMATOCRIT 26.5 % (36.0-47.0); HEMOGLOBIN 8.3 g/dl (12.0-15.5)
[2022-06-07 05:26] VITALS: BP 130/68
[2022-06-07] MEDS: COMBIVENT RESPIMAT 100-20MCG INHALER 4GM INH SCH ×3 (06:27→20:54)
[2022-06-07 07:33] LABS: BASO # 0.1 10^3/uL (0.0-0.2); BASO % 0.8 % (0.0-1.0); EOS # 0.2 10^3/uL (0.0-0.5); HEMATOCRIT 29.6 % (36.0-47.0); HEMOGLOBIN 8.9 g/dl (12.0-15.5); LYMPH # 2.5 10^3/uL (1.5-5.0); LYMPH % 38.1 % (24.0-44.0); MEAN CORPUSCULAR HEMOGLOBIN 26.5 pg (27.0-33.0); MEAN CORPUSCULAR HGB CONC 30.1 g/dl (32.0-36.5); MEAN CORPUSCULAR VOLUME 88.1 fl (80.0-96.0); MONO # 0.4 10^3/uL (0.0-0.8); MONO % 6.1 % (2.0-8.0); NEUTROPHILS # 3.4 10^3/uL (1.5-8.5); NEUTROPHILS % 51.7 % (36.0-66.0); PLATELET COUNT, AUTOMATED 473 10^3/uL (150-450); RED BLOOD COUNT 3.36 10^6/uL (4.00-5.40); WHITE BLOOD COUNT 6.6 10^3/uL (4.0-10.0)
[2022-06-07 07:49] LABS: BLOOD UREA NITROGEN 11 MG/DL (7-18); CALCIUM LEVEL 9.2 MG/DL (8.5-10.1); CARBON DIOXIDE LEVEL 31 MEQ/L (21-32); CHLORIDE LEVEL 103 MEQ/L (98-107); CREATININE FOR GFR 0.67 MG/DL (0.55-1.30); GLOMERULAR FILTRATION RATE > 60.0 (>51); GLUCOSE, FASTING 96 MG/DL (70-100); POTASSIUM SERUM 3.7 MEQ/L (3.5-5.1); SODIUM LEVEL 142 MEQ/L (136-145)
[2022-06-07] MEDS: INSULIN LISPRO (NovoLOG) PER UNIT SC SCH ×4 (09:04→22:53)
[2022-06-07] MEDS: LEVEMIR (INSULIN DETEMIR) 1 UNITS/0.01ML SC SCH ×2 (09:05→23:00)
[2022-06-07] MEDS: LACTOBACILLUS ACIDOPHILUS CAP (BACID) PO SCH ×2 (09:07→17:51)
[2022-06-07] MEDS: DOCUSATE SODIUM 100MG CAPSULE PO SCH ×3 (09:07→22:17)
[2022-06-07] MEDS: MULTIVITAMINS/MINERALS THERAP 1 TAB PO SCH (09:07)
[2022-06-07] MEDS: busPIRone 10 MG TAB PO SCH ×2 (09:08→22:17)
[2022-06-07] MEDS: FERROUS GLUCONATE 324 MG TAB PO SCH (09:08)
[2022-06-07] MEDS: TORSEMIDE 10 MG TABLET PO SCH (09:08)
[2022-06-07] MEDS: GABAPENTIN 300 MG CAP PO SCH ×3 (09:09→22:17)
[2022-06-07] MEDS: ACETAMINOPHEN 500 MG TAB PO SCH ×3 (09:09→22:18)
[2022-06-07] MEDS: MIRALAX *UNIT DOSE* 17GM PACKET PO SCH (09:09)
[2022-06-07] MEDS: PANTOPRAZOLE 40MG TAB (PROTONIX) PO SCH ×2 (09:09→22:17)
[2022-06-07] MEDS: FOLIC ACID 1MG TAB PO SCH (09:09)
[2022-06-07] MEDS: oxyCODONE 5MG TAB PO PRN ×3 (09:16→22:17)
[2022-06-07] MEDS: SUCRALFATE 1 GM TAB PO SCH ×3 (12:00→22:18)
[2022-06-07 12:45] LABS: HEMATOCRIT 33.5 % (36.0-47.0); HEMOGLOBIN 10.4 g/dl (12.0-15.5)
[2022-06-07 14:00] VITALS: BP 131/59
[2022-06-07 20:00] VITALS: BP 144/70
[2022-06-07] MEDS: traZODone 100 MG TAB PO SCH (22:17)
[2022-06-07] MEDS: CETIRIZINE (ZyrTEC) 10 MG TAB PO SCH (22:18)
[2022-06-07] MEDS: SENNA 8.6 MG TAB (SENOKOT) PO SCH (22:18)
[2022-06-07] MEDS: METOPROLOL SUCC *XL* 25MG TAB (TopROL *XL*) PO SCH (22:19)
[2022-06-07] MEDS: oxyBUTYnin *DITROPAN XL* 5 MG TABCR PO SCH (22:19)
[2022-06-07 23:03] LABS: HEMATOCRIT 27.6 % (36.0-47.0); HEMOGLOBIN 8.6 g/dl (12.0-15.5)
[2022-06-08 06:00] VITALS: BP 128/62
[2022-06-08] MEDS: COMBIVENT RESPIMAT 100-20MCG INHALER 4GM INH SCH ×3 (07:30→18:49)
[2022-06-08] MEDS: oxyCODONE 5MG TAB PO PRN ×4 (07:33→21:05)
[2022-06-08] MEDS: GABAPENTIN 300 MG CAP PO SCH ×3 (07:35→21:05)
[2022-06-08] MEDS: busPIRone 10 MG TAB PO SCH ×2 (07:35→21:06)
[2022-06-08] MEDS: SUCRALFATE 1 GM TAB PO SCH ×4 (07:35→21:04)
[2022-06-08] MEDS: FOLIC ACID 1MG TAB PO SCH (07:36)
[2022-06-08] MEDS: ACETAMINOPHEN 500 MG TAB PO SCH ×3 (07:36→21:06)
[2022-06-08] MEDS: TORSEMIDE 10 MG TABLET PO SCH (07:37)
[2022-06-08] MEDS: LACTOBACILLUS ACIDOPHILUS CAP (BACID) PO SCH ×2 (07:37→18:00)
[2022-06-08] MEDS: PANTOPRAZOLE 40MG TAB (PROTONIX) PO SCH ×2 (07:37→21:08)
[2022-06-08] MEDS: MULTIVITAMINS/MINERALS THERAP 1 TAB PO SCH (07:37)
[2022-06-08] MEDS: MIRALAX *UNIT DOSE* 17GM PACKET PO SCH (07:37)
[2022-06-08] MEDS: DOCUSATE SODIUM 100MG CAPSULE PO SCH ×3 (07:37→21:05)
[2022-06-08] MEDS: FERROUS GLUCONATE 324 MG TAB PO SCH (07:37)
[2022-06-08] MEDS: INSULIN LISPRO (NovoLOG) PER UNIT SC SCH ×4 (07:38→20:51)
[2022-06-08] MEDS: LEVEMIR (INSULIN DETEMIR) 1 UNITS/0.01ML SC SCH ×2 (07:38→21:08)
[2022-06-08 12:37] LABS: HEMATOCRIT 29.8 % (36.0-47.0); HEMOGLOBIN 9.1 g/dl (12.0-15.5)
[2022-06-08 14:00] VITALS: BP 135/60
[2022-06-08 20:00] VITALS: BP 126/59
[2022-06-08] MEDS: CETIRIZINE (ZyrTEC) 10 MG TAB PO SCH (21:05)
[2022-06-08] MEDS: oxyBUTYnin *DITROPAN XL* 5 MG TABCR PO SCH (21:05)
[2022-06-08] MEDS: traZODone 100 MG TAB PO SCH (21:05)
[2022-06-08] MEDS: SENNA 8.6 MG TAB (SENOKOT) PO SCH (21:06)
[2022-06-08] MEDS: METOPROLOL SUCC *XL* 25MG TAB (TopROL *XL*) PO SCH (21:06)
[2022-06-08] MEDS: APIXABAN 5 MG TAB (ELIQUIS) PO SCH (21:11)
[2022-06-09 00:21] LABS: HEMOGLOBIN 8.9 g/dl (12.0-15.5)
[2022-06-09] MEDS: oxyCODONE 5MG TAB PO PRN ×4 (05:49→18:42)
[2022-06-09 06:00] VITALS: BP 138/67
[2022-06-09] MEDS: COMBIVENT RESPIMAT 100-20MCG INHALER 4GM INH SCH ×3 (07:19→19:12)
[2022-06-09] MEDS: INSULIN LISPRO (NovoLOG) PER UNIT SC SCH ×4 (07:30→20:38)
[2022-06-09] MEDS: MIRALAX *UNIT DOSE* 17GM PACKET PO SCH (09:00)
[2022-06-09] MEDS: LEVEMIR (INSULIN DETEMIR) 1 UNITS/0.01ML SC SCH ×2 (09:01→20:59)
[2022-06-09] MEDS: TORSEMIDE 10 MG TABLET PO SCH (09:02)
[2022-06-09] MEDS: LACTOBACILLUS ACIDOPHILUS CAP (BACID) PO SCH ×2 (09:02→17:29)
[2022-06-09] MEDS: ACETAMINOPHEN 500 MG TAB PO SCH ×3 (09:03→20:58)
[2022-06-09] MEDS: PANTOPRAZOLE 40MG TAB (PROTONIX) PO SCH ×2 (09:03→20:57)
[2022-06-09] MEDS: DOCUSATE SODIUM 100MG CAPSULE PO SCH ×3 (09:03→20:58)
[2022-06-09] MEDS: MULTIVITAMINS/MINERALS THERAP 1 TAB PO SCH (09:03)
[2022-06-09] MEDS: busPIRone 10 MG TAB PO SCH ×2 (09:04→20:59)
[2022-06-09] MEDS: GABAPENTIN 300 MG CAP PO SCH ×3 (09:04→20:59)
[2022-06-09] MEDS: FERROUS GLUCONATE 324 MG TAB PO SCH (09:04)
[2022-06-09] MEDS: FOLIC ACID 1MG TAB PO SCH (09:04)
[2022-06-09] MEDS: APIXABAN 5 MG TAB (ELIQUIS) PO SCH ×2 (09:04→20:58)
[2022-06-09] MEDS: SUCRALFATE 1 GM TAB PO SCH ×4 (09:05→20:57)
[2022-06-09] MEDS ORDERED: FLEET ENEMA PR PRN (11:10)
[2022-06-09] MEDS ORDERED: BISACODYL 10 MG SUPP PR ONE (11:15)
[2022-06-09 12:46] LABS: HEMATOCRIT 27.9 % (36.0-47.0); HEMOGLOBIN 8.8 g/dl (12.0-15.5)
[2022-06-09 14:00] VITALS: BP 125/60
[2022-06-09 20:00] VITALS: BP 116/65
[2022-06-09] MEDS: SENNA 8.6 MG TAB (SENOKOT) PO SCH (20:57)
[2022-06-09] MEDS: METOPROLOL SUCC *XL* 25MG TAB (TopROL *XL*) PO SCH (20:58)
[2022-06-09] MEDS: traZODone 100 MG TAB PO SCH (20:58)
[2022-06-09] MEDS: CETIRIZINE (ZyrTEC) 10 MG TAB PO SCH (20:59)
[2022-06-09] MEDS: oxyBUTYnin *DITROPAN XL* 5 MG TABCR PO SCH (20:59)
[2022-06-10] MEDS: oxyCODONE 5MG TAB PO PRN ×4 (03:42→17:21)
[2022-06-10 05:44] VITALS: BP 103/52
[2022-06-10 07:08] LABS: BASO # 0.1 10^3/uL (0.0-0.2); BASO % 1.1 % (0.0-1.0); EOS # 0.3 10^3/uL (0.0-0.5); HEMATOCRIT 29.5 % (36.0-47.0); HEMOGLOBIN 8.8 g/dl (12.0-15.5); LYMPH # 2.6 10^3/uL (1.5-5.0); LYMPH % 46.9 % (24.0-44.0); MEAN CORPUSCULAR HEMOGLOBIN 25.5 pg (27.0-33.0); MEAN CORPUSCULAR HGB CONC 29.8 g/dl (32.0-36.5); MEAN CORPUSCULAR VOLUME 85.5 fl (80.0-96.0); MONO # 0.4 10^3/uL (0.0-0.8); NEUTROPHILS # 2.2 10^3/uL (1.5-8.5); NEUTROPHILS % 39.5 % (36.0-66.0); PLATELET COUNT, AUTOMATED 420 10^3/uL (150-450); RED BLOOD COUNT 3.45 10^6/uL (4.00-5.40); WHITE BLOOD COUNT 5.6 10^3/uL (4.0-10.0)
[2022-06-10 07:22] LABS: BLOOD UREA NITROGEN 11 MG/DL (7-18); CALCIUM LEVEL 9.1 MG/DL (8.5-10.1); CARBON DIOXIDE LEVEL 32 MEQ/L (21-32); CHLORIDE LEVEL 102 MEQ/L (98-107); CREATININE FOR GFR 0.68 MG/DL (0.55-1.30); GLOMERULAR FILTRATION RATE > 60.0 (>51); GLUCOSE, FASTING 115 MG/DL (70-100); POTASSIUM SERUM 3.3 MEQ/L (3.5-5.1); SODIUM LEVEL 141 MEQ/L (136-145)
[2022-06-10] MEDS: COMBIVENT RESPIMAT 100-20MCG INHALER 4GM INH SCH ×3 (07:50→19:35)
[2022-06-10] MEDS: MIRALAX *UNIT DOSE* 17GM PACKET PO SCH (07:57)
[2022-06-10] MEDS: LEVEMIR (INSULIN DETEMIR) 1 UNITS/0.01ML SC SCH ×2 (07:58→21:22)
[2022-06-10] MEDS: LACTOBACILLUS ACIDOPHILUS CAP (BACID) PO SCH ×2 (07:59→17:22)
[2022-06-10] MEDS: DOCUSATE SODIUM 100MG CAPSULE PO SCH ×3 (07:59→21:22)
[2022-06-10] MEDS: FERROUS GLUCONATE 324 MG TAB PO SCH (07:59)
[2022-06-10] MEDS: SUCRALFATE 1 GM TAB PO SCH ×4 (07:59→21:22)
[2022-06-10] MEDS: INSULIN LISPRO (NovoLOG) PER UNIT SC SCH ×4 (07:59→21:00)
[2022-06-10] MEDS: PANTOPRAZOLE 40MG TAB (PROTONIX) PO SCH ×2 (07:59→21:22)
[2022-06-10] MEDS: busPIRone 10 MG TAB PO SCH ×2 (07:59→21:22)
[2022-06-10] MEDS: GABAPENTIN 300 MG CAP PO SCH ×3 (08:00→21:23)
[2022-06-10] MEDS: APIXABAN 5 MG TAB (ELIQUIS) PO SCH ×2 (08:00→21:22)
[2022-06-10] MEDS: MULTIVITAMINS/MINERALS THERAP 1 TAB PO SCH (08:00)
[2022-06-10] MEDS: ACETAMINOPHEN 500 MG TAB PO SCH ×3 (08:01→21:24)
[2022-06-10] MEDS: TORSEMIDE 10 MG TABLET PO SCH (08:01)
[2022-06-10] MEDS: FOLIC ACID 1MG TAB PO SCH (08:01)
[2022-06-10] MEDS ORDERED: POTASSIUM CHLORIDE 10MEQ SR TABLET PO ONE (12:45)
[2022-06-10] MEDS: ONDANSETRON 4MG ORAL DISINTEGRATING TAB PO PRN (13:00)
[2022-06-10 13:35] LABS: MAGNESIUM LEVEL 1.9 MG/DL (1.8-2.4)
[2022-06-10 14:00] VITALS: BP 129/58
[2022-06-10] MEDS: REMEDY PHYTOPLEX Z-GUARD PASTE 113GM TUBE (FROM STOREROOM PRODUCT) TOP SCH ×3 (14:55→21:24)
[2022-06-10 19:42] VITALS: BP 141/63
[2022-06-10] MEDS: traZODone 100 MG TAB PO SCH (21:22)
[2022-06-10] MEDS: METOPROLOL SUCC *XL* 25MG TAB (TopROL *XL*) PO SCH (21:22)
[2022-06-10] MEDS: CETIRIZINE (ZyrTEC) 10 MG TAB PO SCH (21:23)
[2022-06-10] MEDS: SENNA 8.6 MG TAB (SENOKOT) PO SCH (21:23)
[2022-06-10] MEDS: oxyBUTYnin *DITROPAN XL* 5 MG TABCR PO SCH (21:23)
[2022-06-11 06:00] VITALS: BP 122/58
[2022-06-11 07:14] LABS: BLOOD UREA NITROGEN 11 MG/DL (7-18); CALCIUM LEVEL 9.3 MG/DL (8.5-10.1); CARBON DIOXIDE LEVEL 29 MEQ/L (21-32); CHLORIDE LEVEL 101 MEQ/L (98-107); CREATININE FOR GFR 0.71 MG/DL (0.55-1.30); GLOMERULAR FILTRATION RATE > 60.0 (>51); GLUCOSE, FASTING 163 MG/DL (70-100); POTASSIUM SERUM 3.3 MEQ/L (3.5-5.1); SODIUM LEVEL 137 MEQ/L (136-145)
[2022-06-11] MEDS: COMBIVENT RESPIMAT 100-20MCG INHALER 4GM INH SCH ×3 (07:20→19:47)
[2022-06-11] MEDS: SUCRALFATE 1 GM TAB PO SCH ×4 (07:30→21:37)
[2022-06-11] MEDS: ONDANSETRON 4MG ORAL DISINTEGRATING TAB PO PRN ×2 (07:44→17:38)
[2022-06-11] MEDS: INSULIN LISPRO (NovoLOG) PER UNIT SC SCH ×4 (07:45→21:00)
[2022-06-11] MEDS: LACTOBACILLUS ACIDOPHILUS CAP (BACID) PO SCH ×2 (08:00→17:17)
[2022-06-11] MEDS: MULTIVITAMINS/MINERALS THERAP 1 TAB PO SCH (08:07)
[2022-06-11] MEDS: PANTOPRAZOLE 40MG TAB (PROTONIX) PO SCH ×3 (08:07→21:36)
[2022-06-11] MEDS: ACETAMINOPHEN 500 MG TAB PO SCH ×3 (09:00→21:28)
[2022-06-11] MEDS: LEVEMIR (INSULIN DETEMIR) 1 UNITS/0.01ML SC SCH ×2 (10:03→21:29)
[2022-06-11] MEDS: REMEDY PHYTOPLEX Z-GUARD PASTE 113GM TUBE (FROM STOREROOM PRODUCT) TOP SCH ×4 (10:03→21:30)
[2022-06-11] MEDS: MIRALAX *UNIT DOSE* 17GM PACKET PO SCH (10:18)
[2022-06-11] MEDS: DOCUSATE SODIUM 100MG CAPSULE PO SCH ×3 (10:19→21:26)
[2022-06-11] MEDS: busPIRone 10 MG TAB PO SCH ×2 (10:20→21:27)
[2022-06-11] MEDS: APIXABAN 5 MG TAB (ELIQUIS) PO SCH ×2 (10:21→21:27)
[2022-06-11] MEDS: FOLIC ACID 1MG TAB PO SCH (10:21)
[2022-06-11] MEDS: FERROUS GLUCONATE 324 MG TAB PO SCH (10:21)
[2022-06-11] MEDS: TORSEMIDE 10 MG TABLET PO SCH (10:23)
[2022-06-11] MEDS: GABAPENTIN 300 MG CAP PO SCH ×3 (10:23→21:27)
[2022-06-11] MEDS: POTASSIUM CHLORIDE 10MEQ SR TABLET PO SCH ×3 (10:25→21:37)
[2022-06-11] MEDS: SIMETHICONE 80MG CHEW TAB PO SCH ×3 (11:59→21:36)
[2022-06-11] MEDS: oxyCODONE 5MG TAB PO PRN ×2 (12:40→21:36)
[2022-06-11 14:00] VITALS: BP 132/64
[2022-06-11] MEDS: BISACODYL 10 MG SUPP PR PRN (17:18)
[2022-06-11 20:00] VITALS: BP 123/60
[2022-06-11] MEDS: traZODone 100 MG TAB PO SCH (21:26)
[2022-06-11] MEDS: SENNA 8.6 MG TAB (SENOKOT) PO SCH (21:26)
[2022-06-11] MEDS: METOPROLOL SUCC *XL* 25MG TAB (TopROL *XL*) PO SCH (21:27)
[2022-06-11] MEDS: CETIRIZINE (ZyrTEC) 10 MG TAB PO SCH (21:27)
[2022-06-11] MEDS: oxyBUTYnin *DITROPAN XL* 5 MG TABCR PO SCH (21:27)
[2022-06-12 06:00] VITALS: BP 106/56
[2022-06-12 07:08] LABS: BASO # 0.1 10^3/uL (0.0-0.2); BASO % 0.8 % (0.0-1.0); EOS # 0.4 10^3/uL (0.0-0.5); EOS % 5.7 % (0.0-3.0); HEMATOCRIT 29.3 % (36.0-47.0); HEMOGLOBIN 8.8 g/dl (12.0-15.5); LYMPH # 3.2 10^3/uL (1.5-5.0); LYMPH % 50.9 % (24.0-44.0); MEAN CORPUSCULAR HEMOGLOBIN 26.1 pg (27.0-33.0); MEAN CORPUSCULAR VOLUME 86.9 fl (80.0-96.0); MONO # 0.4 10^3/uL (0.0-0.8); MONO % 6.1 % (2.0-8.0); NEUTROPHILS # 2.3 10^3/uL (1.5-8.5); NEUTROPHILS % 36.2 % (36.0-66.0); PLATELET COUNT, AUTOMATED 440 10^3/uL (150-450); RED BLOOD COUNT 3.37 10^6/uL (4.00-5.40); WHITE BLOOD COUNT 6.4 10^3/uL (4.0-10.0)
[2022-06-12] MEDS: COMBIVENT RESPIMAT 100-20MCG INHALER 4GM INH SCH ×3 (07:25→20:33)
[2022-06-12 07:33] LABS: BLOOD UREA NITROGEN 10 MG/DL (7-18); CALCIUM LEVEL 8.8 MG/DL (8.5-10.1); CARBON DIOXIDE LEVEL 33 MEQ/L (21-32); CHLORIDE LEVEL 101 MEQ/L (98-107); GLOMERULAR FILTRATION RATE > 60.0 (>51); GLUCOSE, FASTING 113 MG/DL (70-100); POTASSIUM SERUM 3.7 MEQ/L (3.5-5.1); SODIUM LEVEL 138 MEQ/L (136-145)
[2022-06-12] MEDS: MIRALAX *UNIT DOSE* 17GM PACKET PO SCH (08:32)
[2022-06-12] MEDS: LEVEMIR (INSULIN DETEMIR) 1 UNITS/0.01ML SC SCH ×2 (08:33→20:50)
[2022-06-12] MEDS: INSULIN LISPRO (NovoLOG) PER UNIT SC SCH ×4 (08:33→20:23)
[2022-06-12] MEDS: SUCRALFATE 1 GM TAB PO SCH ×4 (08:34→20:55)
[2022-06-12] MEDS: APIXABAN 5 MG TAB (ELIQUIS) PO SCH ×2 (08:34→20:51)
[2022-06-12] MEDS: GABAPENTIN 300 MG CAP PO SCH (08:34)
[2022-06-12] MEDS: busPIRone 10 MG TAB PO SCH ×2 (08:34→20:55)
[2022-06-12] MEDS: FOLIC ACID 1MG TAB PO SCH (08:34)
[2022-06-12] MEDS: SIMETHICONE 80MG CHEW TAB PO SCH ×3 (08:34→20:55)
[2022-06-12] MEDS: PANTOPRAZOLE 40MG TAB (PROTONIX) PO SCH ×2 (08:34→20:55)
[2022-06-12] MEDS: MULTIVITAMINS/MINERALS THERAP 1 TAB PO SCH (08:34)
[2022-06-12] MEDS: LACTOBACILLUS ACIDOPHILUS CAP (BACID) PO SCH ×2 (08:34→18:32)
[2022-06-12] MEDS: DOCUSATE SODIUM 100MG CAPSULE PO SCH ×3 (08:34→20:55)
[2022-06-12] MEDS: FERROUS GLUCONATE 324 MG TAB PO SCH (08:34)
[2022-06-12] MEDS: REMEDY PHYTOPLEX Z-GUARD PASTE 113GM TUBE (FROM STOREROOM PRODUCT) TOP SCH ×4 (08:35→20:56)
[2022-06-12] MEDS: TORSEMIDE 10 MG TABLET PO SCH (08:35)
[2022-06-12] MEDS: POTASSIUM CHLORIDE 10MEQ SR TABLET PO SCH ×2 (08:35→20:55)
[2022-06-12] MEDS: ACETAMINOPHEN 500 MG TAB PO SCH ×3 (08:36→20:54)
[2022-06-12] MEDS: oxyCODONE 5MG TAB PO PRN ×3 (08:36→20:54)
[2022-06-12 12:58] LABS: APPEARANCE, URINE CLOUDY (CLEAR); BACTERIA, URINE AUTO 3+ (NEGATIVE); BILIRUBIN, URINE AUTO NEGATIVE (NEGATIVE); BLOOD, URINE BLOOD 1+ (NEGATIVE); COLOR, URINE YELLOW (YELLOW); GLUCOSE, URINE (UA) AUTO NEGATIVE (NEGATIVE); KETONE, URINE AUTO NEGATIVE (NEGATIVE); LEUKOCYTE ESTERASE, URINE AUTO 3+ (NEGATIVE); MUCUS, URINE SMALL (NEGATIVE); NITRITE, URINE AUTO POSITIVE (NEGATIVE); PROTEIN, URINE AUTO NEGATIVE (NEGATIVE); RBC, URINE AUTO 8 /HPF (0-3); SPECIFIC GRAVITY URINE AUTO 1.005 (1.002-1.035); SQUAMOUS EPITHELIAL CELL UR AU 3 /HPF (0-6); UROBILINOGEN, URINE AUTO 0.2 mg/dL (0.0-2.0); WBC, URINE AUTO TNTC /HPF (0-3)
[2022-06-12 14:00] VITALS: BP 149/65
[2022-06-12] MEDS: NYSTATIN 100,000 UNITS/GM TOPICAL PWD 15 GM TOP SCH ×2 (15:29→20:56)
[2022-06-12] MEDS ORDERED: GABAPENTIN 400MG CAP PO SCH (16:00)
[2022-06-12 20:00] VITALS: BP 106/59
[2022-06-12] MEDS: METOPROLOL SUCC *XL* 25MG TAB (TopROL *XL*) PO SCH (20:52)
[2022-06-12] MEDS: SENNA 8.6 MG TAB (SENOKOT) PO SCH (20:55)
[2022-06-12] MEDS: traZODone 100 MG TAB PO SCH (20:55)
[2022-06-12] MEDS: oxyBUTYnin *DITROPAN XL* 5 MG TABCR PO SCH (20:55)
[2022-06-12] MEDS: CETIRIZINE (ZyrTEC) 10 MG TAB PO SCH (20:56)
[2022-06-13] VITALS (9 sets, daily range): BP systolic 110–168; BP diastolic 55–72
[2022-06-13] MEDS ORDERED: propofoL 200 MG/20 ML VIAL As Ordered ONE (07:15)
[2022-06-13] MEDS ORDERED: MIDAZOLAM INJ 2MG/2ML VIAL (J2250 PER 1MG) As Ordered ONE (07:15)
[2022-06-13] MEDS ORDERED: LIDOCAINE 2% 100MG/5ML SDV (FOR ANES.) As Ordered ONE (07:15)
[2022-06-13] MEDS ORDERED: fentaNYL 100 MCG/2 ML INJECTION As Ordered ONE ×3 (07:15→09:38)
[2022-06-13] MEDS ORDERED: ONDANSETRON 4MG 2ML VIAL As Ordered ONE (07:22)
[2022-06-13] MEDS: COMBIVENT RESPIMAT 100-20MCG INHALER 4GM INH SCH ×3 (07:26→19:32)
[2022-06-13] MEDS: SUCRALFATE 1 GM TAB PO SCH ×4 (07:30→20:14)
[2022-06-13] MEDS: INSULIN LISPRO (NovoLOG) PER UNIT SC SCH ×4 (07:30→20:19)
[2022-06-13] MEDS ORDERED: ceFAZolin 2 GM/D5W 50 ML IV BAG (J0690 PER 500MG) As Ordered ONE (07:49)
[2022-06-13] MEDS: LACTOBACILLUS ACIDOPHILUS CAP (BACID) PO SCH ×2 (08:00→17:35)
[2022-06-13] MEDS ORDERED: KETAMINE HCL 200 MG/20 ML VIAL As Ordered ONE (08:36)
[2022-06-13] MEDS ORDERED: ACETAMINOPHEN 1000MG 100ML IV BTL (OFIRMEV) (J0131 PER 10MG) As Ordered ONE (08:37)
[2022-06-13] MEDS: LEVEMIR (INSULIN DETEMIR) 1 UNITS/0.01ML SC SCH ×2 (09:00→20:17)
[2022-06-13] MEDS: ACETAMINOPHEN 500 MG TAB PO SCH ×3 (09:00→20:14)
[2022-06-13] MEDS: SIMETHICONE 80MG CHEW TAB PO SCH ×3 (09:00→20:14)
[2022-06-13] MEDS: REMEDY PHYTOPLEX Z-GUARD PASTE 113GM TUBE (FROM STOREROOM PRODUCT) TOP SCH ×4 (09:00→20:18)
[2022-06-13] MEDS: DOCUSATE SODIUM 100MG CAPSULE PO SCH ×3 (09:00→20:14)
[2022-06-13] MEDS ORDERED: METOCLOPRAMIDE INJ 10MG/2ML VIAL (J2765 PER 1) IV PRN ×2 (09:35→09:40)
[2022-06-13] MEDS ORDERED: ALBUTEROL SULFATE 2.5 MG/0.5 ML INH NEB SOLN INH PRN ×2 (09:35→09:40)
[2022-06-13] MEDS ORDERED: ONDANSETRON 4MG 2ML VIAL IV PRN ×2 (09:35→09:40)
[2022-06-13] MEDS ORDERED: LR 1,000 ML IV SCH ×2 (09:35→09:40)
[2022-06-13] MEDS: fentaNYL 100 MCG/2 ML INJECTION IV PRN ×4 (09:40→10:14)
[2022-06-13] MEDS ORDERED: INSULIN LISPRO (NovoLOG) PER UNIT SC PRN (09:50)
[2022-06-13] MEDS: PERCOCET 5MG/325MG TAB PO PRN ×2 (10:34→11:47)
[2022-06-13] MEDS: MIRALAX *UNIT DOSE* 17GM PACKET PO SCH (14:07)
[2022-06-13] MEDS: TORSEMIDE 10 MG TABLET PO SCH (14:08)
[2022-06-13] MEDS: MULTIVITAMINS/MINERALS THERAP 1 TAB PO SCH (14:10)
[2022-06-13] MEDS: FERROUS GLUCONATE 324 MG TAB PO SCH (14:10)
[2022-06-13] MEDS: PANTOPRAZOLE 40MG TAB (PROTONIX) PO SCH ×2 (14:10→20:13)
[2022-06-13] MEDS: FOLIC ACID 1MG TAB PO SCH (14:10)
[2022-06-13] MEDS: busPIRone 10 MG TAB PO SCH ×2 (14:10→20:14)
[2022-06-13] MEDS: POTASSIUM CHLORIDE 10MEQ SR TABLET PO SCH ×2 (14:11→20:14)
[2022-06-13] MEDS: NYSTATIN 100,000 UNITS/GM TOPICAL PWD 15 GM TOP SCH ×2 (14:11→20:18)
[2022-06-13] MEDS: oxyCODONE 5MG TAB PO PRN ×2 (15:50→20:12)
[2022-06-13] MEDS: ceFAZolin SOD 2 GM in IV 1 EA IV SCH (15:52)
[2022-06-13] MEDS: ONDANSETRON 4MG ORAL DISINTEGRATING TAB PO PRN (17:34)
[2022-06-13] MEDS: traZODone 100 MG TAB PO SCH (20:12)
[2022-06-13] MEDS: METOPROLOL SUCC *XL* 25MG TAB (TopROL *XL*) PO SCH (20:13)
[2022-06-13] MEDS: SENNA 8.6 MG TAB (SENOKOT) PO SCH (20:13)
[2022-06-13] MEDS: oxyBUTYnin *DITROPAN XL* 5 MG TABCR PO SCH (20:13)
[2022-06-13] MEDS: CETIRIZINE (ZyrTEC) 10 MG TAB PO SCH (20:14)
[2022-06-14] MEDS: ceFAZolin SOD 2 GM in IV 1 EA IV SCH (00:20)
[2022-06-14] MEDS: oxyCODONE 5MG TAB PO PRN ×6 (00:20→22:36)
[2022-06-14 06:00] VITALS: BP 118/57
[2022-06-14] MEDS: COMBIVENT RESPIMAT 100-20MCG INHALER 4GM INH SCH ×3 (07:36→19:17)
[2022-06-14 08:40] LABS: BASO # 0.1 10^3/uL (0.0-0.2); BASO % 0.9 % (0.0-1.0); EOS # 0.3 10^3/uL (0.0-0.5); EOS % 4.2 % (0.0-3.0); HEMATOCRIT 30.1 % (36.0-47.0); HEMOGLOBIN 9.1 g/dl (12.0-15.5); LYMPH # 2.6 10^3/uL (1.5-5.0); LYMPH % 39.9 % (24.0-44.0); MEAN CORPUSCULAR HEMOGLOBIN 26.1 pg (27.0-33.0); MEAN CORPUSCULAR HGB CONC 30.2 g/dl (32.0-36.5); MEAN CORPUSCULAR VOLUME 86.5 fl (80.0-96.0); MONO # 0.4 10^3/uL (0.0-0.8); MONO % 6.2 % (2.0-8.0); NEUTROPHILS # 3.2 10^3/uL (1.5-8.5); NEUTROPHILS % 48.2 % (36.0-66.0); PLATELET COUNT, AUTOMATED 463 10^3/uL (150-450); RED BLOOD COUNT 3.48 10^6/uL (4.00-5.40); WHITE BLOOD COUNT 6.6 10^3/uL (4.0-10.0)
[2022-06-14] MEDS: INSULIN LISPRO (NovoLOG) PER UNIT SC SCH ×4 (08:40→20:52)
[2022-06-14] MEDS: LEVEMIR (INSULIN DETEMIR) 1 UNITS/0.01ML SC SCH ×2 (08:41→20:53)
[2022-06-14] MEDS: MIRALAX *UNIT DOSE* 17GM PACKET PO SCH (08:41)
[2022-06-14] MEDS: FOLIC ACID 1MG TAB PO SCH (08:42)
[2022-06-14] MEDS: LACTOBACILLUS ACIDOPHILUS CAP (BACID) PO SCH ×2 (08:42→18:04)
[2022-06-14] MEDS: SIMETHICONE 80MG CHEW TAB PO SCH ×3 (08:42→20:50)
[2022-06-14] MEDS: FERROUS GLUCONATE 324 MG TAB PO SCH (08:42)
[2022-06-14] MEDS: APIXABAN 5 MG TAB (ELIQUIS) PO SCH ×2 (08:42→20:51)
[2022-06-14] MEDS: PANTOPRAZOLE 40MG TAB (PROTONIX) PO SCH ×2 (08:42→20:51)
[2022-06-14] MEDS: DOCUSATE SODIUM 100MG CAPSULE PO SCH ×3 (08:42→20:47)
[2022-06-14] MEDS: MULTIVITAMINS/MINERALS THERAP 1 TAB PO SCH (08:42)
[2022-06-14] MEDS: ACETAMINOPHEN 500 MG TAB PO SCH ×3 (08:43→20:47)
[2022-06-14] MEDS: ONDANSETRON 4MG ORAL DISINTEGRATING TAB PO PRN ×3 (08:43→22:35)
[2022-06-14] MEDS: SUCRALFATE 1 GM TAB PO SCH ×4 (08:43→20:50)
[2022-06-14] MEDS: busPIRone 10 MG TAB PO SCH ×2 (08:44→20:50)
[2022-06-14] MEDS: TORSEMIDE 10 MG TABLET PO SCH (08:44)
[2022-06-14] MEDS: POTASSIUM CHLORIDE 10MEQ SR TABLET PO SCH (08:45)
[2022-06-14] MEDS: REMEDY PHYTOPLEX Z-GUARD PASTE 113GM TUBE (FROM STOREROOM PRODUCT) TOP SCH ×4 (08:46→20:54)
[2022-06-14] MEDS: NYSTATIN 100,000 UNITS/GM TOPICAL PWD 15 GM TOP SCH ×2 (08:46→20:53)
[2022-06-14 09:23] LABS: BLOOD UREA NITROGEN 9 MG/DL (7-18); CALCIUM LEVEL 8.8 MG/DL (8.5-10.1); CARBON DIOXIDE LEVEL 29 MEQ/L (21-32); CHLORIDE LEVEL 101 MEQ/L (98-107); CREATININE FOR GFR 0.72 MG/DL (0.55-1.30); GLOMERULAR FILTRATION RATE > 60.0 (>51); GLUCOSE, FASTING 222 MG/DL (70-100); POTASSIUM SERUM 4.6 MEQ/L (3.5-5.1); SODIUM LEVEL 136 MEQ/L (136-145)
[2022-06-14] MEDS: BACTRIM 160MG/800MG DS TAB PO SCH ×2 (11:13→20:46)
[2022-06-14 14:00] VITALS: BP 122/59
[2022-06-14 19:11] VITALS: BP 137/65
[2022-06-14] MEDS: SENNA 8.6 MG TAB (SENOKOT) PO SCH (20:45)
[2022-06-14] MEDS: traZODone 100 MG TAB PO SCH (20:46)
[2022-06-14] MEDS: CETIRIZINE (ZyrTEC) 10 MG TAB PO SCH (20:47)
[2022-06-14] MEDS: METOPROLOL SUCC *XL* 25MG TAB (TopROL *XL*) PO SCH (20:50)
[2022-06-14] MEDS: oxyBUTYnin *DITROPAN XL* 5 MG TABCR PO SCH (20:51)
[2022-06-15 06:00] VITALS: BP 125/60
[2022-06-15] MEDS: COMBIVENT RESPIMAT 100-20MCG INHALER 4GM INH SCH ×3 (07:27→19:51)
[2022-06-15] MEDS: INSULIN LISPRO (NovoLOG) PER UNIT SC SCH ×4 (07:30→21:59)
[2022-06-15] MEDS: MULTIVITAMINS/MINERALS THERAP 1 TAB PO SCH (07:58)
[2022-06-15] MEDS: MIRALAX *UNIT DOSE* 17GM PACKET PO SCH (07:58)
[2022-06-15] MEDS: BACTRIM 160MG/800MG DS TAB PO SCH ×2 (07:58→21:54)
[2022-06-15] MEDS: FERROUS GLUCONATE 324 MG TAB PO SCH (07:58)
[2022-06-15] MEDS: PANTOPRAZOLE 40MG TAB (PROTONIX) PO SCH ×2 (07:59→21:54)
[2022-06-15] MEDS: TORSEMIDE 10 MG TABLET PO SCH (07:59)
[2022-06-15] MEDS: LACTOBACILLUS ACIDOPHILUS CAP (BACID) PO SCH ×2 (07:59→17:12)
[2022-06-15] MEDS: SUCRALFATE 1 GM TAB PO SCH ×4 (07:59→21:53)
[2022-06-15] MEDS: APIXABAN 5 MG TAB (ELIQUIS) PO SCH ×2 (08:00→21:54)
[2022-06-15] MEDS: FOLIC ACID 1MG TAB PO SCH (08:00)
[2022-06-15] MEDS: oxyCODONE 5MG TAB PO PRN ×3 (08:00→21:58)
[2022-06-15] MEDS: SIMETHICONE 80MG CHEW TAB PO SCH ×3 (08:00→21:53)
[2022-06-15] MEDS: busPIRone 10 MG TAB PO SCH ×2 (08:00→21:55)
[2022-06-15] MEDS: ACETAMINOPHEN 500 MG TAB PO SCH ×3 (08:00→21:56)
[2022-06-15] MEDS: DOCUSATE SODIUM 100MG CAPSULE PO SCH ×3 (08:00→21:54)
[2022-06-15] MEDS: LEVEMIR (INSULIN DETEMIR) 1 UNITS/0.01ML SC SCH ×2 (08:01→21:59)
[2022-06-15] MEDS: NYSTATIN 100,000 UNITS/GM TOPICAL PWD 15 GM TOP SCH ×2 (08:01→22:00)
[2022-06-15] MEDS: REMEDY PHYTOPLEX Z-GUARD PASTE 113GM TUBE (FROM STOREROOM PRODUCT) TOP SCH ×4 (08:02→22:00)
[2022-06-15 14:00] VITALS: BP 116/55
[2022-06-15 18:00] VITALS: BP 121/56
[2022-06-15] MEDS: SENNA 8.6 MG TAB (SENOKOT) PO SCH (21:54)
[2022-06-15] MEDS: CETIRIZINE (ZyrTEC) 10 MG TAB PO SCH (21:54)
[2022-06-15] MEDS: traZODone 100 MG TAB PO SCH (21:54)
[2022-06-15] MEDS: METOPROLOL SUCC *XL* 25MG TAB (TopROL *XL*) PO SCH (21:55)
[2022-06-15] MEDS: oxyBUTYnin *DITROPAN XL* 5 MG TABCR PO SCH (21:55)
[2022-06-16] MEDS: oxyCODONE 5MG TAB PO PRN ×4 (03:26→20:51)
[2022-06-16 05:54] VITALS: BP 120/58
[2022-06-16] MEDS: COMBIVENT RESPIMAT 100-20MCG INHALER 4GM INH SCH ×3 (07:24→20:14)
[2022-06-16] MEDS: INSULIN LISPRO (NovoLOG) PER UNIT SC SCH ×4 (07:30→20:53)
[2022-06-16] MEDS: ONDANSETRON 4MG ORAL DISINTEGRATING TAB PO PRN ×2 (08:34→20:56)
[2022-06-16] MEDS: MULTIVITAMINS/MINERALS THERAP 1 TAB PO SCH (08:39)
[2022-06-16] MEDS: ACETAMINOPHEN 500 MG TAB PO SCH ×3 (08:39→20:48)
[2022-06-16] MEDS: MIRALAX *UNIT DOSE* 17GM PACKET PO SCH (08:39)
[2022-06-16] MEDS: PANTOPRAZOLE 40MG TAB (PROTONIX) PO SCH ×2 (08:39→20:46)
[2022-06-16] MEDS: SIMETHICONE 80MG CHEW TAB PO SCH ×3 (08:39→20:44)
[2022-06-16] MEDS: DOCUSATE SODIUM 100MG CAPSULE PO SCH ×3 (08:40→20:46)
[2022-06-16] MEDS: TORSEMIDE 10 MG TABLET PO SCH (08:40)
[2022-06-16] MEDS: BACTRIM 160MG/800MG DS TAB PO SCH ×2 (08:40→20:46)
[2022-06-16] MEDS: FERROUS GLUCONATE 324 MG TAB PO SCH (08:40)
[2022-06-16] MEDS: APIXABAN 5 MG TAB (ELIQUIS) PO SCH ×2 (08:40→20:46)
[2022-06-16] MEDS: busPIRone 10 MG TAB PO SCH ×2 (08:40→20:45)
[2022-06-16] MEDS: LACTOBACILLUS ACIDOPHILUS CAP (BACID) PO SCH ×2 (08:40→17:16)
[2022-06-16] MEDS: LEVEMIR (INSULIN DETEMIR) 1 UNITS/0.01ML SC SCH ×2 (08:41→20:56)
[2022-06-16] MEDS: FOLIC ACID 1MG TAB PO SCH (08:41)
[2022-06-16] MEDS: SUCRALFATE 1 GM TAB PO SCH ×4 (08:41→20:47)
[2022-06-16] MEDS: NYSTATIN 100,000 UNITS/GM TOPICAL PWD 15 GM TOP SCH ×2 (08:42→20:58)
[2022-06-16] MEDS: REMEDY PHYTOPLEX Z-GUARD PASTE 113GM TUBE (FROM STOREROOM PRODUCT) TOP SCH ×4 (08:42→20:56)
[2022-06-16 14:00] VITALS: BP 115/70
[2022-06-16 20:00] VITALS: BP 119/56
[2022-06-16] MEDS: CETIRIZINE (ZyrTEC) 10 MG TAB PO SCH (20:45)
[2022-06-16] MEDS: SENNA 8.6 MG TAB (SENOKOT) PO SCH (20:46)
[2022-06-16] MEDS: oxyBUTYnin *DITROPAN XL* 5 MG TABCR PO SCH (20:46)
[2022-06-16] MEDS: traZODone 100 MG TAB PO SCH (20:46)
[2022-06-16] MEDS: METOPROLOL SUCC *XL* 25MG TAB (TopROL *XL*) PO SCH (20:47)
[2022-06-17 06:00] VITALS: BP 101/53
[2022-06-17 07:17] LABS: BASO # 0.1 10^3/uL (0.0-0.2); BASO % 0.7 % (0.0-1.0); EOS # 0.3 10^3/uL (0.0-0.5); HEMATOCRIT 29.1 % (36.0-47.0); HEMOGLOBIN 8.9 g/dl (12.0-15.5); LYMPH # 3.3 10^3/uL (1.5-5.0); LYMPH % 49.5 % (24.0-44.0); MEAN CORPUSCULAR HGB CONC 30.6 g/dl (32.0-36.5); MEAN CORPUSCULAR VOLUME 85.1 fl (80.0-96.0); MONO # 0.4 10^3/uL (0.0-0.8); MONO % 5.7 % (2.0-8.0); NEUTROPHILS # 2.7 10^3/uL (1.5-8.5); NEUTROPHILS % 39.8 % (36.0-66.0); PLATELET COUNT, AUTOMATED 467 10^3/uL (150-450); RED BLOOD COUNT 3.42 10^6/uL (4.00-5.40); WHITE BLOOD COUNT 6.7 10^3/uL (4.0-10.0)
[2022-06-17 07:59] LABS: BLOOD UREA NITROGEN 12 MG/DL (7-18); CARBON DIOXIDE LEVEL 31 MEQ/L (21-32); CHLORIDE LEVEL 102 MEQ/L (98-107); CREATININE FOR GFR 0.84 MG/DL (0.55-1.30); GLOMERULAR FILTRATION RATE > 60.0 (>51); GLUCOSE, FASTING 106 MG/DL (70-100); POTASSIUM SERUM 3.6 MEQ/L (3.5-5.1); SODIUM LEVEL 137 MEQ/L (136-145)
[2022-06-17] MEDS: INSULIN LISPRO (NovoLOG) PER UNIT SC SCH ×4 (08:53→20:50)
[2022-06-17] MEDS: MIRALAX *UNIT DOSE* 17GM PACKET PO SCH (08:53)
[2022-06-17] MEDS: LEVEMIR (INSULIN DETEMIR) 1 UNITS/0.01ML SC SCH ×2 (08:53→20:48)
[2022-06-17] MEDS: LACTOBACILLUS ACIDOPHILUS CAP (BACID) PO SCH ×2 (08:54→17:06)
[2022-06-17] MEDS: MULTIVITAMINS/MINERALS THERAP 1 TAB PO SCH (08:54)
[2022-06-17] MEDS: TORSEMIDE 10 MG TABLET PO SCH (08:54)
[2022-06-17] MEDS: PANTOPRAZOLE 40MG TAB (PROTONIX) PO SCH ×2 (08:54→20:49)
[2022-06-17] MEDS: FOLIC ACID 1MG TAB PO SCH (08:54)
[2022-06-17] MEDS: APIXABAN 5 MG TAB (ELIQUIS) PO SCH ×2 (08:54→20:49)
[2022-06-17] MEDS: busPIRone 10 MG TAB PO SCH ×2 (08:54→20:48)
[2022-06-17] MEDS: ONDANSETRON 4MG ORAL DISINTEGRATING TAB PO PRN ×2 (08:54→17:54)
[2022-06-17] MEDS: FERROUS GLUCONATE 324 MG TAB PO SCH (08:54)
[2022-06-17] MEDS: BISACODYL 10 MG SUPP PR PRN (08:54)
[2022-06-17] MEDS: DOCUSATE SODIUM 100MG CAPSULE PO SCH ×3 (08:54→20:48)
[2022-06-17] MEDS: SIMETHICONE 80MG CHEW TAB PO SCH ×3 (08:54→20:49)
[2022-06-17] MEDS: oxyCODONE 5MG TAB PO PRN ×3 (08:55→22:53)
[2022-06-17] MEDS: ACETAMINOPHEN 500 MG TAB PO SCH ×3 (08:56→20:49)
[2022-06-17] MEDS: NYSTATIN 100,000 UNITS/GM TOPICAL PWD 15 GM TOP SCH ×2 (08:58→20:50)
[2022-06-17] MEDS: REMEDY PHYTOPLEX Z-GUARD PASTE 113GM TUBE (FROM STOREROOM PRODUCT) TOP SCH ×4 (08:58→20:51)
[2022-06-17] MEDS: SUCRALFATE 1 GM TAB PO SCH ×4 (09:03→20:49)
[2022-06-17] MEDS: COMBIVENT RESPIMAT 100-20MCG INHALER 4GM INH SCH ×3 (12:59→20:00)
[2022-06-17 14:00] VITALS: BP 152/65
[2022-06-17] MEDS ORDERED: HYDROMORPHONE HCL 0.5 MG/ 0.5 ML SYRINGE (J1170 PER 1) IV STA (14:05)
[2022-06-17] MEDS ORDERED: oxyCODONE 5MG TAB PO STA (15:48)
[2022-06-17 20:00] VITALS: BP 121/57
[2022-06-17] MEDS: CETIRIZINE (ZyrTEC) 10 MG TAB PO SCH (20:49)
[2022-06-17] MEDS: traZODone 100 MG TAB PO SCH (20:49)
[2022-06-17] MEDS: oxyBUTYnin *DITROPAN XL* 5 MG TABCR PO SCH (20:49)
[2022-06-17] MEDS: METOPROLOL SUCC *XL* 25MG TAB (TopROL *XL*) PO SCH (20:49)
[2022-06-17] MEDS: SENNA 8.6 MG TAB (SENOKOT) PO SCH (20:50)
[2022-06-18] MEDS: oxyCODONE 5MG TAB PO PRN ×3 (04:25→23:37)
[2022-06-18 06:00] VITALS: BP 117/57
[2022-06-18] MEDS: LEVEMIR (INSULIN DETEMIR) 1 UNITS/0.01ML SC SCH ×2 (06:52→20:30)
[2022-06-18] MEDS: INSULIN LISPRO (NovoLOG) PER UNIT SC SCH ×4 (06:52→20:30)
[2022-06-18] MEDS: COMBIVENT RESPIMAT 100-20MCG INHALER 4GM INH SCH ×3 (08:00→20:52)
[2022-06-18] MEDS: TORSEMIDE 10 MG TABLET PO SCH (08:47)
[2022-06-18] MEDS: MIRALAX *UNIT DOSE* 17GM PACKET PO SCH (08:47)
[2022-06-18] MEDS: MULTIVITAMINS/MINERALS THERAP 1 TAB PO SCH (08:47)
[2022-06-18] MEDS: DOCUSATE SODIUM 100MG CAPSULE PO SCH ×3 (08:48→20:28)
[2022-06-18] MEDS: FERROUS GLUCONATE 324 MG TAB PO SCH (08:48)
[2022-06-18] MEDS: ACETAMINOPHEN 500 MG TAB PO SCH ×3 (08:48→20:29)
[2022-06-18] MEDS: FOLIC ACID 1MG TAB PO SCH (08:48)
[2022-06-18] MEDS: SIMETHICONE 80MG CHEW TAB PO SCH ×3 (08:48→20:29)
[2022-06-18] MEDS: APIXABAN 5 MG TAB (ELIQUIS) PO SCH ×2 (08:48→20:29)
[2022-06-18] MEDS: SUCRALFATE 1 GM TAB PO SCH ×4 (08:48→20:28)
[2022-06-18] MEDS: PANTOPRAZOLE 40MG TAB (PROTONIX) PO SCH ×2 (08:48→20:28)
[2022-06-18] MEDS: busPIRone 10 MG TAB PO SCH ×2 (08:48→20:28)
[2022-06-18] MEDS: LACTOBACILLUS ACIDOPHILUS CAP (BACID) PO SCH ×2 (08:49→17:22)
[2022-06-18] MEDS: NYSTATIN 100,000 UNITS/GM TOPICAL PWD 15 GM TOP SCH ×2 (08:49→20:31)
[2022-06-18] MEDS: REMEDY PHYTOPLEX Z-GUARD PASTE 113GM TUBE (FROM STOREROOM PRODUCT) TOP SCH ×4 (08:50→20:31)
[2022-06-18 14:00] VITALS: BP 119/57
[2022-06-18 20:00] VITALS: BP 119/62
[2022-06-18] MEDS: CETIRIZINE (ZyrTEC) 10 MG TAB PO SCH (20:29)
[2022-06-18] MEDS: METOPROLOL SUCC *XL* 25MG TAB (TopROL *XL*) PO SCH (20:29)
[2022-06-18] MEDS: SENNA 8.6 MG TAB (SENOKOT) PO SCH (20:29)
[2022-06-18] MEDS: traZODone 100 MG TAB PO SCH (20:29)
[2022-06-18] MEDS: oxyBUTYnin *DITROPAN XL* 5 MG TABCR PO SCH (20:29)
[2022-06-18] MEDS: ONDANSETRON 4MG ORAL DISINTEGRATING TAB PO PRN (21:56)
[2022-06-19] MEDS: oxyCODONE 5MG TAB PO PRN ×3 (03:48→21:09)
[2022-06-19 06:00] VITALS: BP 144/68
[2022-06-19] MEDS: TORSEMIDE 10 MG TABLET PO SCH (07:58)
[2022-06-19] MEDS: SUCRALFATE 1 GM TAB PO SCH ×4 (07:58→21:11)
[2022-06-19] MEDS: DOCUSATE SODIUM 100MG CAPSULE PO SCH ×3 (07:58→21:00)
[2022-06-19] MEDS: LACTOBACILLUS ACIDOPHILUS CAP (BACID) PO SCH ×2 (07:59→17:10)
[2022-06-19] MEDS: PANTOPRAZOLE 40MG TAB (PROTONIX) PO SCH ×2 (07:59→21:10)
[2022-06-19] MEDS: MULTIVITAMINS/MINERALS THERAP 1 TAB PO SCH (07:59)
[2022-06-19] MEDS: FERROUS GLUCONATE 324 MG TAB PO SCH (07:59)
[2022-06-19] MEDS: busPIRone 10 MG TAB PO SCH ×2 (07:59→21:10)
[2022-06-19] MEDS: FOLIC ACID 1MG TAB PO SCH (07:59)
[2022-06-19] MEDS: APIXABAN 5 MG TAB (ELIQUIS) PO SCH ×2 (07:59→21:11)
[2022-06-19] MEDS: SIMETHICONE 80MG CHEW TAB PO SCH ×3 (07:59→21:11)
[2022-06-19] MEDS: ACETAMINOPHEN 500 MG TAB PO SCH ×3 (07:59→21:09)
[2022-06-19] MEDS: COMBIVENT RESPIMAT 100-20MCG INHALER 4GM INH SCH ×3 (08:00→20:36)
[2022-06-19] MEDS: LEVEMIR (INSULIN DETEMIR) 1 UNITS/0.01ML SC SCH ×2 (08:00→21:12)
[2022-06-19] MEDS: NYSTATIN 100,000 UNITS/GM TOPICAL PWD 15 GM TOP SCH ×2 (08:01→21:14)
[2022-06-19] MEDS: INSULIN LISPRO (NovoLOG) PER UNIT SC SCH ×4 (08:01→21:00)
[2022-06-19] MEDS: REMEDY PHYTOPLEX Z-GUARD PASTE 113GM TUBE (FROM STOREROOM PRODUCT) TOP SCH ×4 (08:01→21:14)
[2022-06-19] MEDS: MIRALAX *UNIT DOSE* 17GM PACKET PO SCH (08:01)
[2022-06-19 14:00] VITALS: BP 133/60
[2022-06-19 14:04] LABS: BASO % 0.6 % (0.0-1.0); EOS # 0.2 10^3/uL (0.0-0.5); EOS % 2.5 % (0.0-3.0); HEMATOCRIT 30.5 % (36.0-47.0); HEMOGLOBIN 9.4 g/dl (12.0-15.5); LYMPH # 2.4 10^3/uL (1.5-5.0); LYMPH % 33.1 % (24.0-44.0); MEAN CORPUSCULAR HEMOGLOBIN 26.4 pg (27.0-33.0); MEAN CORPUSCULAR HGB CONC 30.8 g/dl (32.0-36.5); MEAN CORPUSCULAR VOLUME 85.7 fl (80.0-96.0); MONO # 0.4 10^3/uL (0.0-0.8); MONO % 5.2 % (2.0-8.0); NEUTROPHILS # 4.1 10^3/uL (1.5-8.5); NEUTROPHILS % 58.2 % (36.0-66.0); PLATELET COUNT, AUTOMATED 482 10^3/uL (150-450); RED BLOOD COUNT 3.56 10^6/uL (4.00-5.40); WHITE BLOOD COUNT 7.1 10^3/uL (4.0-10.0)
[2022-06-19 14:50] LABS: BLOOD UREA NITROGEN 13 MG/DL (7-18); CALCIUM LEVEL 9.1 MG/DL (8.5-10.1); CARBON DIOXIDE LEVEL 31 MEQ/L (21-32); CHLORIDE LEVEL 99 MEQ/L (98-107); CREATININE FOR GFR 0.93 MG/DL (0.55-1.30); GLOMERULAR FILTRATION RATE > 60.0 (>51); GLUCOSE, FASTING 216 MG/DL (70-100); POTASSIUM SERUM 3.5 MEQ/L (3.5-5.1); SODIUM LEVEL 136 MEQ/L (136-145)
[2022-06-19 20:41] VITALS: BP 107/54
[2022-06-19] MEDS: SENNA 8.6 MG TAB (SENOKOT) PO SCH (21:00)
[2022-06-19 21:04] VITALS: BP 114/59
[2022-06-19] MEDS: METOPROLOL SUCC *XL* 25MG TAB (TopROL *XL*) PO SCH (21:10)
[2022-06-19] MEDS: traZODone 100 MG TAB PO SCH (21:11)
[2022-06-19] MEDS: oxyBUTYnin *DITROPAN XL* 5 MG TABCR PO SCH (21:11)
[2022-06-19] MEDS: CETIRIZINE (ZyrTEC) 10 MG TAB PO SCH (21:11)
[2022-06-20 05:59] VITALS: BP 108/55
[2022-06-20] MEDS: oxyCODONE 5MG TAB PO PRN ×3 (06:04→20:48)
[2022-06-20] MEDS: COMBIVENT RESPIMAT 100-20MCG INHALER 4GM INH SCH ×3 (07:41→19:12)
[2022-06-20] MEDS: PANTOPRAZOLE 40MG TAB (PROTONIX) PO SCH ×2 (08:17→20:49)
[2022-06-20] MEDS: MULTIVITAMINS/MINERALS THERAP 1 TAB PO SCH (08:17)
[2022-06-20] MEDS: SUCRALFATE 1 GM TAB PO SCH ×4 (08:17→20:49)
[2022-06-20] MEDS: LACTOBACILLUS ACIDOPHILUS CAP (BACID) PO SCH ×2 (08:17→17:27)
[2022-06-20] MEDS: FOLIC ACID 1MG TAB PO SCH (08:17)
[2022-06-20] MEDS: APIXABAN 5 MG TAB (ELIQUIS) PO SCH ×2 (08:18→20:49)
[2022-06-20] MEDS: TORSEMIDE 10 MG TABLET PO SCH (08:18)
[2022-06-20] MEDS: busPIRone 10 MG TAB PO SCH ×2 (08:18→20:47)
[2022-06-20] MEDS: FERROUS GLUCONATE 324 MG TAB PO SCH (08:18)
[2022-06-20] MEDS: SIMETHICONE 80MG CHEW TAB PO SCH ×3 (08:19→20:49)
[2022-06-20] MEDS: ACETAMINOPHEN 500 MG TAB PO SCH ×3 (08:19→20:49)
[2022-06-20] MEDS: LEVEMIR (INSULIN DETEMIR) 1 UNITS/0.01ML SC SCH ×2 (08:20→20:47)
[2022-06-20] MEDS: MIRALAX *UNIT DOSE* 17GM PACKET PO SCH (08:21)
[2022-06-20] MEDS: DOCUSATE SODIUM 100MG CAPSULE PO SCH ×3 (08:21→20:54)
[2022-06-20] MEDS: INSULIN LISPRO (NovoLOG) PER UNIT SC SCH ×4 (08:21→20:50)
[2022-06-20] MEDS: NYSTATIN 100,000 UNITS/GM TOPICAL PWD 15 GM TOP SCH ×2 (08:22→20:50)
[2022-06-20] MEDS: REMEDY PHYTOPLEX Z-GUARD PASTE 113GM TUBE (FROM STOREROOM PRODUCT) TOP SCH ×4 (08:23→20:50)
[2022-06-20] MEDS: ONDANSETRON 4MG ORAL DISINTEGRATING TAB PO PRN ×2 (09:50→23:31)
[2022-06-20 14:00] VITALS: BP 142/70
[2022-06-20 20:02] VITALS: BP 142/63
[2022-06-20] MEDS: traZODone 100 MG TAB PO SCH (20:47)
[2022-06-20] MEDS: CETIRIZINE (ZyrTEC) 10 MG TAB PO SCH (20:47)
[2022-06-20] MEDS: METOPROLOL SUCC *XL* 25MG TAB (TopROL *XL*) PO SCH (20:48)
[2022-06-20] MEDS: oxyBUTYnin *DITROPAN XL* 5 MG TABCR PO SCH (20:49)
[2022-06-20] MEDS: SENNA 8.6 MG TAB (SENOKOT) PO SCH (20:54)
[2022-06-21] MEDS: oxyCODONE 5MG TAB PO PRN ×4 (01:00→17:30)
[2022-06-21 05:45] VITALS: BP 122/70
[2022-06-21 07:19] LABS: BASO % 0.6 % (0.0-1.0); EOS # 0.2 10^3/uL (0.0-0.5); HEMATOCRIT 29.5 % (36.0-47.0); HEMOGLOBIN 9.2 g/dl (12.0-15.5); LYMPH # 3.6 10^3/uL (1.5-5.0); LYMPH % 53.6 % (24.0-44.0); MEAN CORPUSCULAR HEMOGLOBIN 26.6 pg (27.0-33.0); MEAN CORPUSCULAR HGB CONC 31.2 g/dl (32.0-36.5); MEAN CORPUSCULAR VOLUME 85.3 fl (80.0-96.0); MONO # 0.4 10^3/uL (0.0-0.8); MONO % 5.9 % (2.0-8.0); NEUTROPHILS # 2.4 10^3/uL (1.5-8.5); NEUTROPHILS % 36.6 % (36.0-66.0); PLATELET COUNT, AUTOMATED 450 10^3/uL (150-450); RED BLOOD COUNT 3.46 10^6/uL (4.00-5.40); WHITE BLOOD COUNT 6.6 10^3/uL (4.0-10.0)
[2022-06-21] MEDS: SUCRALFATE 1 GM TAB PO SCH ×4 (07:42→20:14)
[2022-06-21] MEDS: LACTOBACILLUS ACIDOPHILUS CAP (BACID) PO SCH ×2 (07:42→17:27)
[2022-06-21] MEDS: INSULIN LISPRO (NovoLOG) PER UNIT SC SCH ×4 (07:44→20:02)
[2022-06-21 07:51] LABS: BLOOD UREA NITROGEN 10 MG/DL (7-18); CALCIUM LEVEL 9.1 MG/DL (8.5-10.1); CARBON DIOXIDE LEVEL 31 MEQ/L (21-32); CHLORIDE LEVEL 101 MEQ/L (98-107); CREATININE FOR GFR 0.71 MG/DL (0.55-1.30); GLOMERULAR FILTRATION RATE > 60.0 (>51); GLUCOSE, FASTING 121 MG/DL (70-100); POTASSIUM SERUM 3.2 MEQ/L (3.5-5.1); SODIUM LEVEL 137 MEQ/L (136-145)
[2022-06-21] MEDS: COMBIVENT RESPIMAT 100-20MCG INHALER 4GM INH SCH ×3 (08:11→20:02)
[2022-06-21] MEDS: FOLIC ACID 1MG TAB PO SCH (08:35)
[2022-06-21] MEDS: APIXABAN 5 MG TAB (ELIQUIS) PO SCH ×2 (08:35→20:14)
[2022-06-21] MEDS: MULTIVITAMINS/MINERALS THERAP 1 TAB PO SCH (08:35)
[2022-06-21] MEDS: PANTOPRAZOLE 40MG TAB (PROTONIX) PO SCH ×2 (08:35→20:15)
[2022-06-21] MEDS: DOCUSATE SODIUM 100MG CAPSULE PO SCH ×3 (08:35→20:14)
[2022-06-21] MEDS: FERROUS GLUCONATE 324 MG TAB PO SCH (08:35)
[2022-06-21] MEDS: ACETAMINOPHEN 500 MG TAB PO SCH ×3 (08:36→20:15)
[2022-06-21] MEDS: NYSTATIN 100,000 UNITS/GM TOPICAL PWD 15 GM TOP SCH ×2 (08:37→20:16)
[2022-06-21] MEDS: LEVEMIR (INSULIN DETEMIR) 1 UNITS/0.01ML SC SCH ×2 (08:37→20:16)
[2022-06-21] MEDS: SIMETHICONE 80MG CHEW TAB PO SCH ×3 (08:38→20:15)
[2022-06-21] MEDS: REMEDY PHYTOPLEX Z-GUARD PASTE 113GM TUBE (FROM STOREROOM PRODUCT) TOP SCH ×4 (08:38→20:16)
[2022-06-21] MEDS: busPIRone 10 MG TAB PO SCH ×2 (08:38→20:14)
[2022-06-21] MEDS: TORSEMIDE 10 MG TABLET PO SCH (08:41)
[2022-06-21] MEDS: MIRALAX *UNIT DOSE* 17GM PACKET PO SCH (08:41)
[2022-06-21] MEDS ORDERED: POTASSIUM CHLORIDE 10MEQ SR TABLET PO SCH (12:00)
[2022-06-21 14:00] VITALS: BP 114/60
[2022-06-21] MEDS ORDERED: POTASSIUM CHLORIDE 10MEQ SR TABLET PO ONE (14:00)
[2022-06-21 20:00] VITALS: BP 126/58
[2022-06-21] MEDS: traZODone 100 MG TAB PO SCH (20:13)
[2022-06-21] MEDS: CETIRIZINE (ZyrTEC) 10 MG TAB PO SCH (20:14)
[2022-06-21] MEDS: SENNA 8.6 MG TAB (SENOKOT) PO SCH (20:14)
[2022-06-21] MEDS: METOPROLOL SUCC *XL* 25MG TAB (TopROL *XL*) PO SCH (20:15)
[2022-06-21] MEDS: oxyBUTYnin *DITROPAN XL* 5 MG TABCR PO SCH (20:15)
[2022-06-22] MEDS: oxyCODONE 5MG TAB PO PRN ×4 (00:41→18:40)
[2022-06-22 06:00] VITALS: BP 95/50
[2022-06-22 07:12] LABS: BLOOD UREA NITROGEN 10 MG/DL (7-18); CARBON DIOXIDE LEVEL 32 MEQ/L (21-32); CHLORIDE LEVEL 104 MEQ/L (98-107); GLOMERULAR FILTRATION RATE > 60.0 (>51); GLUCOSE, FASTING 120 MG/DL (70-100); POTASSIUM SERUM 3.1 MEQ/L (3.5-5.1); SODIUM LEVEL 140 MEQ/L (136-145)
[2022-06-22] MEDS: SUCRALFATE 1 GM TAB PO SCH ×4 (07:30→20:35)
[2022-06-22] MEDS: LACTOBACILLUS ACIDOPHILUS CAP (BACID) PO SCH ×2 (07:30→16:52)
[2022-06-22] MEDS: INSULIN LISPRO (NovoLOG) PER UNIT SC SCH ×4 (07:31→20:39)
[2022-06-22] MEDS: MIRALAX *UNIT DOSE* 17GM PACKET PO SCH (09:00)
[2022-06-22] MEDS: FOLIC ACID 1MG TAB PO SCH (09:24)
[2022-06-22] MEDS: SPIRONOLACTONE 12.5MG PER 1/2 TABLET PO SCH (09:24)
[2022-06-22] MEDS: busPIRone 10 MG TAB PO SCH ×2 (09:24→20:35)
[2022-06-22] MEDS: DOCUSATE SODIUM 100MG CAPSULE PO SCH ×3 (09:24→20:34)
[2022-06-22] MEDS: SIMETHICONE 80MG CHEW TAB PO SCH ×3 (09:24→20:38)
[2022-06-22] MEDS: LEVEMIR (INSULIN DETEMIR) 1 UNITS/0.01ML SC SCH ×2 (09:25→20:32)
[2022-06-22] MEDS: MULTIVITAMINS/MINERALS THERAP 1 TAB PO SCH (09:26)
[2022-06-22] MEDS: ACETAMINOPHEN 500 MG TAB PO SCH ×3 (09:26→20:35)
[2022-06-22] MEDS: POTASSIUM CHLORIDE 10MEQ SR TABLET PO SCH (09:26)
[2022-06-22] MEDS: PANTOPRAZOLE 40MG TAB (PROTONIX) PO SCH ×2 (09:26→20:33)
[2022-06-22] MEDS: TORSEMIDE 20 MG TAB PO SCH (09:27)
[2022-06-22] MEDS: FERROUS GLUCONATE 324 MG TAB PO SCH (09:27)
[2022-06-22] MEDS: APIXABAN 5 MG TAB (ELIQUIS) PO SCH ×2 (09:27→20:35)
[2022-06-22] MEDS: NYSTATIN 100,000 UNITS/GM TOPICAL PWD 15 GM TOP SCH ×2 (09:27→20:36)
[2022-06-22] MEDS: REMEDY PHYTOPLEX Z-GUARD PASTE 113GM TUBE (FROM STOREROOM PRODUCT) TOP SCH ×4 (09:28→20:36)
[2022-06-22] MEDS: COMBIVENT RESPIMAT 100-20MCG INHALER 4GM INH SCH ×3 (10:25→19:57)
[2022-06-22] MEDS ORDERED: POTASSIUM CHLORIDE 10MEQ SR TABLET PO ONE ×2 (12:30→21:00)
[2022-06-22 14:00] VITALS: BP 131/63
[2022-06-22 20:00] VITALS: BP 111/58
[2022-06-22] MEDS: oxyBUTYnin *DITROPAN XL* 5 MG TABCR PO SCH (20:33)
[2022-06-22] MEDS: METOPROLOL SUCC *XL* 25MG TAB (TopROL *XL*) PO SCH (20:34)
[2022-06-22] MEDS: CETIRIZINE (ZyrTEC) 10 MG TAB PO SCH (20:35)
[2022-06-22] MEDS: SENNA 8.6 MG TAB (SENOKOT) PO SCH (20:35)
[2022-06-22] MEDS: traZODone 100 MG TAB PO SCH (20:35)
[2022-06-23] MEDS: oxyCODONE 5MG TAB PO PRN ×5 (01:18→20:41)
[2022-06-23 06:00] VITALS: BP 119/81
[2022-06-23] MEDS: INSULIN LISPRO (NovoLOG) PER UNIT SC SCH ×4 (07:29→20:32)
[2022-06-23 07:34] LABS: BLOOD UREA NITROGEN 8 MG/DL (7-18); CALCIUM LEVEL 9.2 MG/DL (8.5-10.1); CARBON DIOXIDE LEVEL 28 MEQ/L (21-32); CHLORIDE LEVEL 106 MEQ/L (98-107); CREATININE FOR GFR 0.67 MG/DL (0.55-1.30); GLOMERULAR FILTRATION RATE > 60.0 (>51); GLUCOSE, FASTING 106 MG/DL (70-100); POTASSIUM SERUM 3.9 MEQ/L (3.5-5.1); SODIUM LEVEL 139 MEQ/L (136-145)
[2022-06-23] MEDS: COMBIVENT RESPIMAT 100-20MCG INHALER 4GM INH SCH ×3 (07:36→19:21)
[2022-06-23] MEDS: LACTOBACILLUS ACIDOPHILUS CAP (BACID) PO SCH ×2 (07:42→17:14)
[2022-06-23] MEDS: ONDANSETRON 4MG ORAL DISINTEGRATING TAB PO PRN (07:43)
[2022-06-23] MEDS: SUCRALFATE 1 GM TAB PO SCH ×4 (07:43→20:29)
[2022-06-23] MEDS ORDERED: COMBIVENT RESPIMAT 100-20MCG INHALER 4GM INH SCH (08:00)
[2022-06-23] MEDS: MIRALAX *UNIT DOSE* 17GM PACKET PO SCH (09:00)
[2022-06-23] MEDS: SODIUM CHLORIDE NASAL 0.65% SPRAY BTL (OCEAN) SCH ×3 (09:00→20:33)
[2022-06-23] MEDS: LEVEMIR (INSULIN DETEMIR) 1 UNITS/0.01ML SC SCH ×2 (09:00→20:33)
[2022-06-23] MEDS: FLUTICASONE PROP 0.05% NASAL SPRAY 16 GM (FLONASE) NARES SCH ×2 (09:00→20:33)
[2022-06-23] MEDS: MULTIVITAMINS/MINERALS THERAP 1 TAB PO SCH (09:54)
[2022-06-23] MEDS: SPIRONOLACTONE 12.5MG PER 1/2 TABLET PO SCH (09:54)
[2022-06-23] MEDS: DOCUSATE SODIUM 100MG CAPSULE PO SCH ×3 (09:54→20:29)
[2022-06-23] MEDS: SIMETHICONE 80MG CHEW TAB PO SCH ×3 (09:54→20:31)
[2022-06-23] MEDS: guaiFENesin 200 MG TAB PO SCH ×3 (09:54→20:31)
[2022-06-23] MEDS: POTASSIUM CHLORIDE 10MEQ SR TABLET PO SCH (09:54)
[2022-06-23] MEDS: APIXABAN 5 MG TAB (ELIQUIS) PO SCH ×2 (09:54→20:29)
[2022-06-23] MEDS: FOLIC ACID 1MG TAB PO SCH (09:55)
[2022-06-23] MEDS: busPIRone 10 MG TAB PO SCH ×2 (09:55→20:29)
[2022-06-23] MEDS: FERROUS GLUCONATE 324 MG TAB PO SCH (09:55)
[2022-06-23] MEDS: ACETAMINOPHEN 500 MG TAB PO SCH ×3 (09:55→20:31)
[2022-06-23] MEDS: TORSEMIDE 20 MG TAB PO SCH (09:55)
[2022-06-23] MEDS: PANTOPRAZOLE 40MG TAB (PROTONIX) PO SCH ×2 (09:56→20:31)
[2022-06-23] MEDS: REMEDY PHYTOPLEX Z-GUARD PASTE 113GM TUBE (FROM STOREROOM PRODUCT) TOP SCH ×4 (09:57→20:34)
[2022-06-23] MEDS: NYSTATIN 100,000 UNITS/GM TOPICAL PWD 15 GM TOP SCH ×2 (09:57→20:34)
[2022-06-23 14:00] VITALS: BP 146/64
[2022-06-23 20:00] VITALS: BP 110/56
[2022-06-23] MEDS: oxyBUTYnin *DITROPAN XL* 5 MG TABCR PO SCH (20:29)
[2022-06-23] MEDS: traZODone 100 MG TAB PO SCH (20:29)
[2022-06-23] MEDS: SENNA 8.6 MG TAB (SENOKOT) PO SCH (20:29)
[2022-06-23] MEDS: CETIRIZINE (ZyrTEC) 10 MG TAB PO SCH (20:32)
[2022-06-23] MEDS: METOPROLOL SUCC *XL* 25MG TAB (TopROL *XL*) PO SCH (20:39)
[2022-06-24] MEDS: oxyCODONE 5MG TAB PO PRN ×5 (01:06→21:01)
[2022-06-24 06:00] VITALS: BP 116/59
[2022-06-24] MEDS: COMBIVENT RESPIMAT 100-20MCG INHALER 4GM INH SCH ×3 (07:08→20:00)
[2022-06-24 07:09] LABS: BASO # 0.1 10^3/uL (0.0-0.2); BASO % 0.9 % (0.0-1.0); EOS # 0.1 10^3/uL (0.0-0.5); EOS % 2.1 % (0.0-3.0); HEMATOCRIT 29.6 % (36.0-47.0); HEMOGLOBIN 9.1 g/dl (12.0-15.5); LYMPH # 3.2 10^3/uL (1.5-5.0); LYMPH % 55.9 % (24.0-44.0); MEAN CORPUSCULAR HEMOGLOBIN 26.8 pg (27.0-33.0); MEAN CORPUSCULAR HGB CONC 30.7 g/dl (32.0-36.5); MEAN CORPUSCULAR VOLUME 87.1 fl (80.0-96.0); MONO # 0.3 10^3/uL (0.0-0.8); MONO % 5.5 % (2.0-8.0); NEUTROPHILS % 35.2 % (36.0-66.0); PLATELET COUNT, AUTOMATED 390 10^3/uL (150-450); WHITE BLOOD COUNT 5.7 10^3/uL (4.0-10.0)
[2022-06-24 07:41] LABS: BLOOD UREA NITROGEN 9 MG/DL (7-18); CALCIUM LEVEL 9.1 MG/DL (8.5-10.1); CARBON DIOXIDE LEVEL 29 MEQ/L (21-32); CHLORIDE LEVEL 104 MEQ/L (98-107); CREATININE FOR GFR 0.67 MG/DL (0.55-1.30); GLOMERULAR FILTRATION RATE > 60.0 (>51); GLUCOSE, FASTING 151 MG/DL (70-100); POTASSIUM SERUM 4.2 MEQ/L (3.5-5.1); SODIUM LEVEL 136 MEQ/L (136-145)
[2022-06-24] MEDS: ACETAMINOPHEN 500 MG TAB PO SCH ×3 (07:54→21:02)
[2022-06-24] MEDS: LEVEMIR (INSULIN DETEMIR) 1 UNITS/0.01ML SC SCH ×2 (07:55→21:00)
[2022-06-24] MEDS: INSULIN LISPRO (NovoLOG) PER UNIT SC SCH ×4 (07:55→21:00)
[2022-06-24] MEDS: PANTOPRAZOLE 40MG TAB (PROTONIX) PO SCH ×2 (07:56→21:03)
[2022-06-24] MEDS: SUCRALFATE 1 GM TAB PO SCH ×4 (07:57→21:03)
[2022-06-24] MEDS: MIRALAX *UNIT DOSE* 17GM PACKET PO SCH (09:00)
[2022-06-24] MEDS: FERROUS GLUCONATE 324 MG TAB PO SCH (10:07)
[2022-06-24] MEDS: POTASSIUM CHLORIDE 10MEQ SR TABLET PO SCH (10:08)
[2022-06-24] MEDS: APIXABAN 5 MG TAB (ELIQUIS) PO SCH ×2 (10:08→21:03)
[2022-06-24] MEDS: DOCUSATE SODIUM 100MG CAPSULE PO SCH ×3 (10:08→21:01)
[2022-06-24] MEDS: TORSEMIDE 20 MG TAB PO SCH (10:08)
[2022-06-24] MEDS: SPIRONOLACTONE 12.5MG PER 1/2 TABLET PO SCH (10:08)
[2022-06-24] MEDS: guaiFENesin 200 MG TAB PO SCH ×3 (10:09→21:02)
[2022-06-24] MEDS: FOLIC ACID 1MG TAB PO SCH (10:09)
[2022-06-24] MEDS: LACTOBACILLUS ACIDOPHILUS CAP (BACID) PO SCH ×2 (10:09→18:49)
[2022-06-24] MEDS: MULTIVITAMINS/MINERALS THERAP 1 TAB PO SCH (10:09)
[2022-06-24] MEDS: busPIRone 10 MG TAB PO SCH ×2 (10:09→21:02)
[2022-06-24] MEDS: SIMETHICONE 80MG CHEW TAB PO SCH ×3 (10:09→21:01)
[2022-06-24] MEDS: SODIUM CHLORIDE NASAL 0.65% SPRAY BTL (OCEAN) SCH ×3 (10:10→21:03)
[2022-06-24] MEDS: FLUTICASONE PROP 0.05% NASAL SPRAY 16 GM (FLONASE) NARES SCH ×2 (10:10→21:03)
[2022-06-24] MEDS: NYSTATIN 100,000 UNITS/GM TOPICAL PWD 15 GM TOP SCH ×2 (10:10→21:04)
[2022-06-24] MEDS: REMEDY PHYTOPLEX Z-GUARD PASTE 113GM TUBE (FROM STOREROOM PRODUCT) TOP SCH ×4 (10:11→21:04)
[2022-06-24 14:00] VITALS: BP 112/62
[2022-06-24] MEDS: ONDANSETRON 4MG ORAL DISINTEGRATING TAB PO PRN (14:36)
[2022-06-24 20:00] VITALS: BP 118/70
[2022-06-24] MEDS: CETIRIZINE (ZyrTEC) 10 MG TAB PO SCH (21:02)
[2022-06-24] MEDS: SENNA 8.6 MG TAB (SENOKOT) PO SCH (21:02)
[2022-06-24] MEDS: traZODone 100 MG TAB PO SCH (21:02)
[2022-06-24] MEDS: METOPROLOL SUCC *XL* 25MG TAB (TopROL *XL*) PO SCH (21:03)
[2022-06-24] MEDS: oxyBUTYnin *DITROPAN XL* 5 MG TABCR PO SCH (21:03)
[2022-06-25] MEDS: oxyCODONE 5MG TAB PO PRN ×4 (02:10→21:18)
[2022-06-25 05:39] VITALS: BP 116/72
[2022-06-25] MEDS: COMBIVENT RESPIMAT 100-20MCG INHALER 4GM INH SCH ×3 (07:28→20:43)
[2022-06-25] MEDS: INSULIN LISPRO (NovoLOG) PER UNIT SC SCH ×4 (07:33→21:00)
[2022-06-25] MEDS: SUCRALFATE 1 GM TAB PO SCH ×4 (07:33→21:19)
[2022-06-25] MEDS: PANTOPRAZOLE 40MG TAB (PROTONIX) PO SCH ×2 (07:33→21:19)
[2022-06-25] MEDS: ACETAMINOPHEN 500 MG TAB PO SCH ×3 (07:34→21:18)
[2022-06-25] MEDS: LEVEMIR (INSULIN DETEMIR) 1 UNITS/0.01ML SC SCH ×2 (07:35→21:17)
[2022-06-25] MEDS: MIRALAX *UNIT DOSE* 17GM PACKET PO SCH (08:54)
[2022-06-25] MEDS: guaiFENesin 200 MG TAB PO SCH ×3 (08:54→21:19)
[2022-06-25] MEDS: busPIRone 10 MG TAB PO SCH ×2 (08:54→21:19)
[2022-06-25] MEDS: LACTOBACILLUS ACIDOPHILUS CAP (BACID) PO SCH ×2 (08:54→17:18)
[2022-06-25] MEDS: FERROUS GLUCONATE 324 MG TAB PO SCH (08:54)
[2022-06-25] MEDS: SIMETHICONE 80MG CHEW TAB PO SCH ×3 (08:54→21:17)
[2022-06-25] MEDS: APIXABAN 5 MG TAB (ELIQUIS) PO SCH ×2 (08:54→21:18)
[2022-06-25] MEDS: TORSEMIDE 20 MG TAB PO SCH (08:55)
[2022-06-25] MEDS: FOLIC ACID 1MG TAB PO SCH (08:55)
[2022-06-25] MEDS: SPIRONOLACTONE 12.5MG PER 1/2 TABLET PO SCH (08:55)
[2022-06-25] MEDS: DOCUSATE SODIUM 100MG CAPSULE PO SCH ×3 (08:55→21:18)
[2022-06-25] MEDS: MULTIVITAMINS/MINERALS THERAP 1 TAB PO SCH (08:55)
[2022-06-25] MEDS: SODIUM CHLORIDE NASAL 0.65% SPRAY BTL (OCEAN) SCH ×3 (08:55→21:15)
[2022-06-25] MEDS: FLUTICASONE PROP 0.05% NASAL SPRAY 16 GM (FLONASE) NARES SCH ×2 (08:55→21:15)
[2022-06-25] MEDS: REMEDY PHYTOPLEX Z-GUARD PASTE 113GM TUBE (FROM STOREROOM PRODUCT) TOP SCH ×4 (08:56→21:00)
[2022-06-25] MEDS: NYSTATIN 100,000 UNITS/GM TOPICAL PWD 15 GM TOP SCH ×2 (08:56→21:16)
[2022-06-25 14:00] VITALS: BP 116/59
[2022-06-25] MEDS ORDERED: CEPHALEXIN 500 MG CAP PO SCH (14:20)
[2022-06-25] MEDS ORDERED: TORSEMIDE 10 MG TABLET PO ONE (15:00)
[2022-06-25] MEDS: DOXYCYCLINE HYCLATE 100MG TABLET PO SCH ×2 (15:38→21:18)
[2022-06-25 20:00] VITALS: BP 123/58
[2022-06-25] MEDS: SENNA 8.6 MG TAB (SENOKOT) PO SCH (21:18)
[2022-06-25] MEDS: traZODone 100 MG TAB PO SCH (21:18)
[2022-06-25] MEDS: METOPROLOL SUCC *XL* 25MG TAB (TopROL *XL*) PO SCH (21:19)
[2022-06-25] MEDS: oxyBUTYnin *DITROPAN XL* 5 MG TABCR PO SCH (21:19)
[2022-06-25] MEDS: CETIRIZINE (ZyrTEC) 10 MG TAB PO SCH (21:19)
[2022-06-26] MEDS: oxyCODONE 5MG TAB PO PRN ×5 (03:57→21:44)
[2022-06-26 05:08] VITALS: BP 124/68
[2022-06-26 06:21] LABS: BASO % 0.5 % (0.0-1.0); EOS # 0.1 10^3/uL (0.0-0.5); EOS % 2.3 % (0.0-3.0); HEMATOCRIT 29.6 % (36.0-47.0); HEMOGLOBIN 9.1 g/dl (12.0-15.5); LYMPH # 3.1 10^3/uL (1.5-5.0); LYMPH % 51.3 % (24.0-44.0); MEAN CORPUSCULAR HEMOGLOBIN 26.5 pg (27.0-33.0); MEAN CORPUSCULAR HGB CONC 30.7 g/dl (32.0-36.5); MONO # 0.4 10^3/uL (0.0-0.8); MONO % 6.3 % (2.0-8.0); NEUTROPHILS # 2.4 10^3/uL (1.5-8.5); NEUTROPHILS % 39.3 % (36.0-66.0); PLATELET COUNT, AUTOMATED 361 10^3/uL (150-450); RED BLOOD COUNT 3.44 10^6/uL (4.00-5.40); WHITE BLOOD COUNT 6.1 10^3/uL (4.0-10.0)
[2022-06-26 06:50] LABS: BLOOD UREA NITROGEN 9 MG/DL (7-18); CALCIUM LEVEL 9.5 MG/DL (8.5-10.1); CARBON DIOXIDE LEVEL 29 MEQ/L (21-32); CHLORIDE LEVEL 103 MEQ/L (98-107); CREATININE FOR GFR 0.61 MG/DL (0.55-1.30); GLOMERULAR FILTRATION RATE > 60.0 (>51); GLUCOSE, FASTING 143 MG/DL (70-100); POTASSIUM SERUM 3.8 MEQ/L (3.5-5.1); SODIUM LEVEL 137 MEQ/L (136-145)
[2022-06-26] MEDS: COMBIVENT RESPIMAT 100-20MCG INHALER 4GM INH SCH ×3 (07:43→20:06)
[2022-06-26] MEDS: INSULIN LISPRO (NovoLOG) PER UNIT SC SCH ×4 (07:58→20:54)
[2022-06-26] MEDS: LACTOBACILLUS ACIDOPHILUS CAP (BACID) PO SCH ×2 (07:59→17:06)
[2022-06-26] MEDS: SUCRALFATE 1 GM TAB PO SCH ×4 (07:59→20:52)
[2022-06-26] MEDS: REMEDY PHYTOPLEX Z-GUARD PASTE 113GM TUBE (FROM STOREROOM PRODUCT) TOP SCH ×4 (09:00→20:55)
[2022-06-26] MEDS: ACETAMINOPHEN 500 MG TAB PO SCH ×3 (09:32→20:53)
[2022-06-26] MEDS: SPIRONOLACTONE 12.5MG PER 1/2 TABLET PO SCH (09:32)
[2022-06-26] MEDS: MULTIVITAMINS/MINERALS THERAP 1 TAB PO SCH (09:32)
[2022-06-26] MEDS: busPIRone 10 MG TAB PO SCH ×2 (09:33→20:52)
[2022-06-26] MEDS: SIMETHICONE 80MG CHEW TAB PO SCH ×3 (09:34→20:52)
[2022-06-26] MEDS: DOXYCYCLINE HYCLATE 100MG TABLET PO SCH ×2 (09:34→20:52)
[2022-06-26] MEDS: guaiFENesin 200 MG TAB PO SCH ×3 (09:34→20:51)
[2022-06-26] MEDS: TORSEMIDE 10 MG TABLET PO SCH (09:34)
[2022-06-26] MEDS: MIRALAX *UNIT DOSE* 17GM PACKET PO SCH (09:35)
[2022-06-26] MEDS: FOLIC ACID 1MG TAB PO SCH (09:35)
[2022-06-26] MEDS: APIXABAN 5 MG TAB (ELIQUIS) PO SCH ×2 (09:35→20:52)
[2022-06-26] MEDS: PANTOPRAZOLE 40MG TAB (PROTONIX) PO SCH ×2 (09:35→20:52)
[2022-06-26] MEDS: FERROUS GLUCONATE 324 MG TAB PO SCH (09:35)
[2022-06-26] MEDS: DOCUSATE SODIUM 100MG CAPSULE PO SCH ×3 (09:35→20:51)
[2022-06-26] MEDS: LEVEMIR (INSULIN DETEMIR) 1 UNITS/0.01ML SC SCH ×2 (09:37→20:54)
[2022-06-26] MEDS: NYSTATIN 100,000 UNITS/GM TOPICAL PWD 15 GM TOP SCH ×2 (09:37→20:55)
[2022-06-26] MEDS: SODIUM CHLORIDE NASAL 0.65% SPRAY BTL (OCEAN) SCH ×3 (09:38→20:54)
[2022-06-26] MEDS: FLUTICASONE PROP 0.05% NASAL SPRAY 16 GM (FLONASE) NARES SCH ×2 (09:39→20:54)
[2022-06-26 14:00] VITALS: BP 145/65
[2022-06-26] MEDS: ONDANSETRON 4MG ORAL DISINTEGRATING TAB PO PRN (15:40)
[2022-06-26 20:00] VITALS: BP 120/57
[2022-06-26] MEDS: oxyBUTYnin *DITROPAN XL* 5 MG TABCR PO SCH (20:52)
[2022-06-26] MEDS: traZODone 100 MG TAB PO SCH (20:52)
[2022-06-26] MEDS: CETIRIZINE (ZyrTEC) 10 MG TAB PO SCH (20:52)
[2022-06-26] MEDS: METOPROLOL SUCC *XL* 25MG TAB (TopROL *XL*) PO SCH (20:53)
[2022-06-26] MEDS: SENNA 8.6 MG TAB (SENOKOT) PO SCH (20:53)
[2022-06-27 06:00] VITALS: BP 121/59
[2022-06-27] MEDS: oxyCODONE 5MG TAB PO PRN ×3 (08:38→22:44)
[2022-06-27] MEDS: LEVEMIR (INSULIN DETEMIR) 1 UNITS/0.01ML SC SCH ×2 (08:39→21:13)
[2022-06-27] MEDS: MIRALAX *UNIT DOSE* 17GM PACKET PO SCH (08:39)
[2022-06-27] MEDS: INSULIN LISPRO (NovoLOG) PER UNIT SC SCH ×4 (08:39→21:14)
[2022-06-27] MEDS: SUCRALFATE 1 GM TAB PO SCH ×4 (08:40→21:14)
[2022-06-27] MEDS: PANTOPRAZOLE 40MG TAB (PROTONIX) PO SCH ×2 (08:40→21:16)
[2022-06-27] MEDS: LACTOBACILLUS ACIDOPHILUS CAP (BACID) PO SCH ×2 (08:41→17:12)
[2022-06-27] MEDS: MULTIVITAMINS/MINERALS THERAP 1 TAB PO SCH (08:41)
[2022-06-27] MEDS: TORSEMIDE 10 MG TABLET PO SCH (08:41)
[2022-06-27] MEDS: DOXYCYCLINE HYCLATE 100MG TABLET PO SCH ×2 (08:41→21:15)
[2022-06-27] MEDS: SIMETHICONE 80MG CHEW TAB PO SCH ×3 (08:41→21:16)
[2022-06-27] MEDS: guaiFENesin 200 MG TAB PO SCH ×3 (08:41→21:14)
[2022-06-27] MEDS: DOCUSATE SODIUM 100MG CAPSULE PO SCH ×3 (08:42→21:16)
[2022-06-27] MEDS: SPIRONOLACTONE 12.5MG PER 1/2 TABLET PO SCH (08:42)
[2022-06-27] MEDS: FERROUS GLUCONATE 324 MG TAB PO SCH (08:42)
[2022-06-27] MEDS: APIXABAN 5 MG TAB (ELIQUIS) PO SCH ×2 (08:42→21:14)
[2022-06-27] MEDS: ACETAMINOPHEN 500 MG TAB PO SCH ×3 (08:42→21:15)
[2022-06-27] MEDS: busPIRone 10 MG TAB PO SCH ×2 (08:42→21:16)
[2022-06-27] MEDS: FOLIC ACID 1MG TAB PO SCH (08:42)
[2022-06-27] MEDS: SODIUM CHLORIDE NASAL 0.65% SPRAY BTL (OCEAN) SCH ×3 (08:43→21:17)
[2022-06-27] MEDS: FLUTICASONE PROP 0.05% NASAL SPRAY 16 GM (FLONASE) NARES SCH ×2 (08:43→21:17)
[2022-06-27] MEDS: REMEDY PHYTOPLEX Z-GUARD PASTE 113GM TUBE (FROM STOREROOM PRODUCT) TOP SCH ×4 (08:44→21:00)
[2022-06-27] MEDS: NYSTATIN 100,000 UNITS/GM TOPICAL PWD 15 GM TOP SCH ×2 (08:44→21:17)
[2022-06-27] MEDS: COMBIVENT RESPIMAT 100-20MCG INHALER 4GM INH SCH ×3 (09:03→19:08)
[2022-06-27] MEDS ORDERED: INSUDET SC ×2 (09:34)
[2022-06-27] MEDS ORDERED: METO1TAB32 PO (09:34)
[2022-06-27] MEDS ORDERED: ROSU20TA5 PO (09:34)
[2022-06-27] MEDS ORDERED: ARIP1TAB6 PO (09:34)
[2022-06-27] MEDS ORDERED: ELIQ5TAB PO (09:34)
[2022-06-27] MEDS ORDERED: OMEP-173 PO (09:34)
[2022-06-27] MEDS ORDERED: BUSP30TA PO (09:34)
[2022-06-27] MEDS ORDERED: OXYB-54 PO (09:34)
[2022-06-27] MEDS ORDERED: TRAZ-257 PO (09:34)
[2022-06-27] MEDS ORDERED: BACITAB PO (09:34)
[2022-06-27] MEDS ORDERED: PANT40TA29 PO (09:39)
[2022-06-27] MEDS ORDERED: OXYC-517 PO (09:39)
[2022-06-27] MEDS ORDERED: DOXY100T PO (09:39)
[2022-06-27] MEDS ORDERED: TORS10TA3 PO (09:39)
[2022-06-27] MEDS ORDERED: SUCR1TA PO (09:39)
[2022-06-27] MEDS ORDERED: NITR4TASL SL (09:39)
[2022-06-27] MEDS ORDERED: ALDA25TA2 PO (09:39)
[2022-06-27] MEDS ORDERED: SIME80TA16 PO (09:39)
[2022-06-27 14:00] VITALS: BP 141/82
[2022-06-27 20:00] VITALS: BP 128/61
[2022-06-27] MEDS: traZODone 100 MG TAB PO SCH (21:14)
[2022-06-27] MEDS: CETIRIZINE (ZyrTEC) 10 MG TAB PO SCH (21:15)
[2022-06-27] MEDS: SENNA 8.6 MG TAB (SENOKOT) PO SCH (21:15)
[2022-06-27] MEDS: oxyBUTYnin *DITROPAN XL* 5 MG TABCR PO SCH (21:15)
[2022-06-27 21:16] VITALS: BP 128/61
[2022-06-27] MEDS: METOPROLOL SUCC *XL* 25MG TAB (TopROL *XL*) PO SCH (21:16)
[2022-06-28] MEDS: ONDANSETRON 4MG ORAL DISINTEGRATING TAB PO PRN (01:45)
[2022-06-28] MEDS: oxyCODONE 5MG TAB PO PRN ×2 (03:11→10:30)
[2022-06-28 06:00] VITALS: BP 129/58
[2022-06-28] MEDS: COMBIVENT RESPIMAT 100-20MCG INHALER 4GM INH SCH (06:57)
[2022-06-28] MEDS: REMEDY PHYTOPLEX Z-GUARD PASTE 113GM TUBE (FROM STOREROOM PRODUCT) TOP SCH ×2 (09:00→13:00)
[2022-06-28] MEDS: MULTIVITAMINS/MINERALS THERAP 1 TAB PO SCH (10:25)
[2022-06-28] MEDS: LACTOBACILLUS ACIDOPHILUS CAP (BACID) PO SCH (10:25)
[2022-06-28] MEDS: SIMETHICONE 80MG CHEW TAB PO SCH (10:25)
[2022-06-28] MEDS: busPIRone 10 MG TAB PO SCH (10:25)
[2022-06-28] MEDS: DOXYCYCLINE HYCLATE 100MG TABLET PO SCH (10:25)
[2022-06-28] MEDS: FOLIC ACID 1MG TAB PO SCH (10:25)
[2022-06-28] MEDS: FERROUS GLUCONATE 324 MG TAB PO SCH (10:25)
[2022-06-28] MEDS: SUCRALFATE 1 GM TAB PO SCH ×2 (10:25→13:55)
[2022-06-28] MEDS: DOCUSATE SODIUM 100MG CAPSULE PO SCH (10:25)
[2022-06-28] MEDS: PANTOPRAZOLE 40MG TAB (PROTONIX) PO SCH (10:25)
[2022-06-28] MEDS: MIRALAX *UNIT DOSE* 17GM PACKET PO SCH (10:25)
[2022-06-28] MEDS: APIXABAN 5 MG TAB (ELIQUIS) PO SCH (10:26)
[2022-06-28] MEDS: LEVEMIR (INSULIN DETEMIR) 1 UNITS/0.01ML SC SCH (10:26)
[2022-06-28] MEDS: guaiFENesin 200 MG TAB PO SCH (10:26)
[2022-06-28] MEDS: TORSEMIDE 10 MG TABLET PO SCH (10:26)
[2022-06-28] MEDS: SPIRONOLACTONE 12.5MG PER 1/2 TABLET PO SCH (10:26)
[2022-06-28] MEDS: INSULIN LISPRO (NovoLOG) PER UNIT SC SCH ×2 (10:27→13:56)
[2022-06-28] MEDS: ACETAMINOPHEN 500 MG TAB PO SCH (10:28)
[2022-06-28] MEDS: NYSTATIN 100,000 UNITS/GM TOPICAL PWD 15 GM TOP SCH (10:33)
[2022-06-28] MEDS: FLUTICASONE PROP 0.05% NASAL SPRAY 16 GM (FLONASE) NARES SCH (10:33)
[2022-06-28] MEDS: SODIUM CHLORIDE NASAL 0.65% SPRAY BTL (OCEAN) SCH (10:33)
[2022-07-02] MEDS ORDERED: INSUHUMDS SC (13:28)
== END 2022-06-28 14:15 | disposition home or self-care (01) | DRG 464 ==
LOC: M PM&R 14:45
PROVIDERS: ADMIT Physical Medicine & Rehabilitation; ATTEND Physical Medicine & Rehabilitation
PROC: 0JBP0ZZ Excision of Left Lower Leg Subcutaneous Tissue and Fascia, Open Approach (ICD-10-PCS; principal; 2022-06-13 07:30)
DX: Z47.81 Encounter for orthopedic aftercare following surgical amputation (principal); I50.32 Chronic diastolic (congestive) heart failure; L97.419 Non-pressure chronic ulcer of right heel and midfoot with unspecified severity; E11.42 Type 2 diabetes mellitus with diabetic polyneuropathy; E11.319 Type 2 diabetes mellitus with unspecified diabetic retinopathy without macular edema; M32.9 Systemic lupus erythematosus, unspecified; M06.9 Rheumatoid arthritis, unspecified; I27.20 Pulmonary hypertension, unspecified; Z86.711 Personal history of pulmonary embolism; E66.01 Morbid (severe) obesity due to excess calories; Z98.84 Bariatric surgery status; Z86.718 Personal history of other venous thrombosis and embolism; F31.9 Bipolar disorder, unspecified; F43.10 Post-traumatic stress disorder, unspecified; F41.9 Anxiety disorder, unspecified; D64.9 Anemia, unspecified; K59.00 Constipation, unspecified; Z74.09 Other reduced mobility; Z74.1 Need for assistance with personal care; R39.15 Urgency of urination; Z79.01 Long term (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 anticoagulants; Z90.49 Acquired absence of other specified parts of digestive tract; E11.65 Type 2 diabetes mellitus with hyperglycemia; Z79.4 Long term (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 insulin; Z79.899 Other long term (current) drug therapy; Z88.5 Allergy status to narcotic agent; Z91.040 Latex allergy status; Z91.018 Allergy to other foods; Z89.512 Acquired absence of left leg below knee; E11.621 Type 2 diabetes mellitus with foot ulcer; I11.0 Hypertensive heart disease with heart failure

== ENCOUNTER → 2022-10-11 | Outpatient (REF) | payer MEDICARE, MEDICAID ==
[~2022-10-11] MED LIST changes: +ALDA25TA2 PO; +COLA100C5 PO; +DOXY100T PO; +MIRA1POW3 PO; +OXYC-517 PO; +PANT40TA29 PO; +SIME80TA16 PO; +SUCR1TA PO; +TORS10TA3 PO
[2022-10-11 14:55] LABS: HEMOGLOBIN A1c 6.9 % (4.0-6.0)
== END ==
LOC: M SFHCWOUN 12:40
PROVIDERS: ATTEND Surgery
DX: T81.30XA Disruption of wound, unspecified, initial encounter (principal); Z79.899 Other long term (current) drug therapy

== ENCOUNTER → 2022-10-17 | Outpatient (CLI) | payer MEDICAID, MEDICARE, OTHER ==
[2022-10-17 18:28] LABS: BASO # 0.1 10^3/uL (0.0-0.2); EOS # 0.2 10^3/uL (0.0-0.5); EOS % 2.1 % (0.0-3.0); HEMATOCRIT 38.1 % (36.0-47.0); LYMPH # 4.2 10^3/uL (1.5-5.0); LYMPH % 51.2 % (24.0-44.0); MEAN CORPUSCULAR HEMOGLOBIN 27.7 pg (27.0-33.0); MEAN CORPUSCULAR HGB CONC 31.5 g/dl (32.0-36.5); MONO # 0.4 10^3/uL (0.0-0.8); MONO % 4.2 % (2.0-8.0); NEUTROPHILS # 3.4 10^3/uL (1.5-8.5); NEUTROPHILS % 41.3 % (36.0-66.0); PLATELET COUNT, AUTOMATED 431 10^3/uL (150-450); RED BLOOD COUNT 4.33 10^6/uL (4.00-5.40); WHITE BLOOD COUNT 8.2 10^3/uL (4.0-10.0)
[2022-10-17 18:55] LABS: URIC ACID 4.8 MG/DL (3.1-7.8)
[2022-10-17 19:00] LABS: TOTAL IRON BINDING CAPACITY 308 UG/DL (250-425)
[2022-10-17 19:01] LABS: IRON (FE) 56 UG/DL (50-170); PERCENT SATURATION 18.2 % (13.2-45.0); RHEUMATOID FACTOR QUANT 42.6 IU/ML (<14)
[2022-10-17 19:02] LABS: ALBUMIN 3.6 G/DL (3.2-5.2); ALKALINE PHOSPHATASE 60 U/L (46-116); ALT/SGPT 17 U/L (7.0-40); AST/SGOT 13 U/L (<34); BILIRUBIN,TOTAL 0.3 MG/DL (0.3-1.2); BLOOD UREA NITROGEN 12 MG/DL (9-23); CALCIUM LEVEL 9.2 MG/DL (8.5-10.1); CARBON DIOXIDE LEVEL 29 MMOL/L (20-31); CHLORIDE LEVEL 101 MMOL/L (98-107); CREATININE FOR GFR 0.54 MG/DL (0.55-1.30); FREE T4 1.06 NG/DL (0.89-1.76); GLOMERULAR FILTRATION RATE > 60.0 (>51); GLUCOSE, FASTING 139 MG/DL (60-100); POTASSIUM SERUM 4.8 MMOL/L (3.5-5.1); SODIUM LEVEL 137 MMOL/L (136-145); TOTAL PROTEIN 7.2 G/DL (5.7-8.2)
[2022-10-17 20:22] LABS: ERYTHROCYTE SEDIMENTATION RATE 37 mm/hr (0-30)
== END ==
LOC: M PLALAB 15:27
PROVIDERS: ATTEND Physician Assistant
DX: M32.9 Systemic lupus erythematosus, unspecified (principal); L65.9 Nonscarring hair loss, unspecified

== ENCOUNTER → 2022-10-18 | Outpatient (REF) | payer MEDICARE, MEDICAID | LOC: M SFHCPLAZ 10:34 | PROVIDERS: ATTEND Physician Assistant | DX: Z53.20 Procedure and treatment not carried out because of patient's decision for unspecified reasons (principal) ==

== ENCOUNTER → 2022-11-08 | Outpatient (CLI) | payer OTHER | LOC: M RAD 09:44 | PROVIDERS: ATTEND Physician Assistant | DX: R68.89 Other general symptoms and signs (principal) ==

== ENCOUNTER → 2022-12-10 | Outpatient (POV) | payer OTHER, MEDICARE ==
[~2022-12-10] VITALS: Ht 170.2 cm; Wt 99.0 kg
[2022-12-10 08:30] VITALS: BP 170/87
== END ==
LOC: M IRPOV 08:17
PROVIDERS: ATTEND Radiology Diagnostic Radiology
DX: R94.30 Abnormal result of cardiovascular function study, unspecified (principal); E11.9 Type 2 diabetes mellitus without complications; E78.5 Hyperlipidemia, unspecified; I10 Essential (primary) hypertension; I25.2 Old myocardial infarction; T87.89 Other complications of amputation stump; Z79.01 Long term (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 anticoagulants; Z79.4 Long term (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 insulin; Z79.899 Other long term (current) drug therapy; Z86.718 Personal history of other venous thrombosis and embolism; Z87.891 Personal history of nicotine dependence; Z88.5 Allergy status to narcotic agent; Z89.421 Acquired absence of other right toe(s); Z89.512 Acquired absence of left leg below knee; Z90.710 Acquired absence of both cervix and uterus; Z91.018 Allergy to other foods; Z91.040 Latex allergy status; Z98.84 Bariatric surgery status

== ENCOUNTER → 2022-12-23 | Outpatient (CLI) | payer OTHER, MEDICARE, MEDICAID | LOC: M SOG 09:19 | PROVIDERS: ATTEND Orthopaedic Surgery Adult Reconstructive Orthopaedic Surgery | DX: M25.561 Pain in right knee (principal) ==

== ENCOUNTER → 2022-12-24 | Outpatient (REF) | payer OTHER, MEDICAID | LOC: M SFHCWOUN 11:23 | PROVIDERS: ATTEND Surgery | DX: T81.30XA Disruption of wound, unspecified, initial encounter (principal); L03.116 Cellulitis of left lower limb ==

== ENCOUNTER → 2023-03-03 | Outpatient (CLI) | payer OTHER ==
[2023-03-03 13:26] LABS: BLOOD UREA NITROGEN 9 MG/DL (9-23); CREATININE FOR GFR 0.67 MG/DL (0.55-1.30); GLOMERULAR FILTRATION RATE > 60.0 (>51)
== END ==
LOC: M PLALAB 10:18
PROVIDERS: ATTEND Physician Assistant
DX: R41.3 Other amnesia (principal)

== ENCOUNTER → 2023-03-13 | Outpatient (CLI) | payer OTHER ==
[~2023-03-13] MED LIST changes: +NYST100085 TOP; -NYSTOI TOP; +PROHANCE 279.3MG/ML 15ML VIAL ONE; +PROHANCE 279.3MG/ML 5ML VIAL ONE
== END ==
LOC: M PLAIMG 13:33
PROVIDERS: ATTEND Physician Assistant
DX: R90.82 White matter disease, unspecified (principal)
CPT/HCPCS: 70553; A9576

== ENCOUNTER → 2023-03-27 | Outpatient (REF) | payer MEDICAID, OTHER ==
[~2023-03-27] MED LIST changes: -PROHANCE 279.3MG/ML 15ML VIAL ONE; -PROHANCE 279.3MG/ML 5ML VIAL ONE; -ROSU20TA5 PO; +ROSU20TA61 PO
[2023-03-27 13:39] LABS: C REACTIVE PROTEIN QUANTITATIV < 0.40 MG/DL (<1.0)
[2023-03-27 13:40] LABS: COMPLEMENT C3 149.1 MG/DL (90.0-170.0); COMPLEMENT C4 26.5 MG/DL (12-36); IMMUNOGLOBULIN A 300.9 MG/DL (40-350); IMMUNOGLOBULIN G 1245 MG/DL (650-1600); IMMUNOGLOBULIN M 118.5 MG/DL (50-300)
[2023-03-27 13:47] LABS: HEPATITIS B SURFACE ANTIBODY NEGATIVE (POSITIVE)
[2023-03-27 14:00] LABS: HEPATITIS B SURFACE ANTIGEN NEGATIVE (NEGATIVE)
[2023-03-28 13:09] LABS: COMPLEMENT TOTAL (CH50) > 60 U/mL (>41)
[2023-03-28 18:07] LABS: G6PD2 4.38 x10E6/uL (3.77-5.28); HEPATITIS B CORE ANTIBODY IGG Negative (Negative)
== END ==
LOC: M SFHCRHEU 10:34
PROVIDERS: ATTEND Internal Medicine
DX: B99.9 Unspecified infectious disease (principal); M05.79 Rheumatoid arthritis with rheumatoid factor of multiple sites without organ or systems involvement; Z11.59 Encounter for screening for other viral diseases

== ENCOUNTER → 2023-04-08 | Outpatient (CLI) | payer OTHER ==
[~2023-04-08] MED LIST changes: +ROSU20TA5 PO; -ROSU20TA61 PO
== END ==
LOC: M PLAIMG 10:50 → M PLALAB 10:50
PROVIDERS: ATTEND Internal Medicine
DX: M05.79 Rheumatoid arthritis with rheumatoid factor of multiple sites without organ or systems involvement (principal); M19.041 Primary osteoarthritis, right hand; M19.042 Primary osteoarthritis, left hand

== ENCOUNTER → 2023-04-28 | Outpatient (CLI) | payer OTHER ==
[~2023-04-28] MED LIST changes: -ROSU20TA5 PO; +ROSU20TA61 PO
[2023-04-28 15:00] LABS: FREE T4 0.99 NG/DL (0.89-1.76); PROLACTIN 4.07 NG/ML; THYROID STIMULATING HORMONE 2.115 uIU/ML (0.55-4.78)
== END ==
LOC: M PLALAB 12:03
PROVIDERS: ATTEND Nurse Practitioner Family
DX: Z12.4 Encounter for screening for malignant neoplasm of cervix (principal); N64.3 Galactorrhea not associated with childbirth; N64.4 Mastodynia

== ENCOUNTER → 2023-05-15 | Outpatient (CLI) | payer OTHER | LOC: M RAD 13:52 | PROVIDERS: ATTEND Physician Assistant | DX: R06.00 Dyspnea, unspecified (principal) ==

== ENCOUNTER → 2023-06-12 | Outpatient (CLI) | payer OTHER ==
[~2023-06-12] MED LIST changes: +METHACHOLINE KIT INH ONE
== END ==
LOC: M CARPUL 10:28
PROVIDERS: ATTEND Physician Assistant
DX: R06.00 Dyspnea, unspecified (principal); Z53.9 Procedure and treatment not carried out, unspecified reason

== ENCOUNTER → 2023-06-19 | Outpatient (CLI) | payer OTHER | LOC: M CARPUL 12:16 | PROVIDERS: ATTEND Physician Assistant | DX: R06.00 Dyspnea, unspecified (principal) | CPT/HCPCS: 94070; 95070; J7674 ==

== ENCOUNTER → 2023-06-20 | Outpatient (REF) | payer OTHER, MEDICAID ==
[~2023-06-20] MED LIST changes: -METHACHOLINE KIT INH ONE
[2023-06-20 18:26] LABS: APPEARANCE, URINE CLEAR (CLEAR); BACTERIA, URINE AUTO NEGATIVE (NEGATIVE); BILIRUBIN, URINE AUTO NEGATIVE (NEGATIVE); BLOOD, URINE BLOOD NEGATIVE (NEGATIVE); COLOR, URINE YELLOW (YELLOW); GLUCOSE, URINE (UA) AUTO 3+ mg/dL (NEGATIVE); KETONE, URINE AUTO NEGATIVE (NEGATIVE); LEUKOCYTE ESTERASE, URINE AUTO NEGATIVE (NEGATIVE); MUCUS, URINE SMALL (NEGATIVE); NITRITE, URINE AUTO NEGATIVE (NEGATIVE); PROTEIN, URINE AUTO NEGATIVE (NEGATIVE); RBC, URINE AUTO 2 /HPF (0-3); SPECIFIC GRAVITY URINE AUTO 1.031 (1.002-1.035); SQUAMOUS EPITHELIAL CELL UR AU 2 /HPF (0-6); UROBILINOGEN, URINE AUTO 0.2 mg/dL (0.0-2.0); WBC, URINE AUTO 2 /HPF (0-3)
== END ==
LOC: M LABSMT 16:06
PROVIDERS: ATTEND Urology
DX: N39.41 Urge incontinence (principal)

== ENCOUNTER → 2023-08-19 | Outpatient (CLI) | payer OTHER ==
[~2023-08-19] MED LIST changes: -CEFD300C41 PO; +CEFD300C42 PO
== END ==
LOC: EEVIPCON 06-23 15:00 → M WHC 14:29
PROVIDERS: ATTEND Nurse Practitioner Family
DX: N64.3 Galactorrhea not associated with childbirth (principal); N64.4 Mastodynia

== ENCOUNTER → 2023-10-09 | Outpatient (RCR) | payer MEDICARE, MEDICAID | LOC: M PT 09-16 11:32 | PROVIDERS: ATTEND Physical Medicine & Rehabilitation | DX: M24.561 Contracture, right knee (principal) ==

== ENCOUNTER 2023-10-29 10:45 | Outpatient (RCR) | payer MEDICARE, MEDICAID ==
[~2023-10-29 10:45] MED LIST changes: +CEFD1CAP9 PO; -CEFD300C42 PO
== END 2023-11-09 ==
LOC: M PT 10:45
PROVIDERS: ATTEND Physical Medicine & Rehabilitation
DX: M24.561 Contracture, right knee (principal)

== ENCOUNTER → 2024-06-23 | Outpatient (CLI) | payer MEDICARE, MEDICAID ==
[~2024-06-23] MED LIST changes: +DOXY-323 PO; -DOXY-443 PO; -MIRA1POW3 PO; +MIRA33506 PO; +ONDA-282 PO; -ONDA4TAB6 PO
[2024-06-23 16:08] LABS: BASO # 0.1 10^3/uL (0.0-0.2); BASO % 0.8 % (0.0-1.0); EOS # 0.2 10^3/uL (0.0-0.5); HEMOGLOBIN 12.5 g/dl (12.0-15.5); LYMPH # 3.5 10^3/uL (1.5-5.0); LYMPH % 34.6 % (24.0-44.0); MEAN CORPUSCULAR HEMOGLOBIN 27.8 pg (27.0-33.0); MEAN CORPUSCULAR HGB CONC 32.9 g/dl (32.0-36.5); MEAN CORPUSCULAR VOLUME 84.4 fl (80.0-96.0); MONO # 0.4 10^3/uL (0.0-0.8); MONO % 3.4 % (2.0-8.0); NEUTROPHILS % 58.6 % (36.0-66.0); PLATELET COUNT, AUTOMATED 444 10^3/uL (150-450); WHITE BLOOD COUNT 10.2 10^3/uL (4.0-10.0)
[2024-06-23 16:35] LABS: ALBUMIN 3.2 G/DL (3.2-5.2); ALKALINE PHOSPHATASE 117 U/L (46-116); ALT/SGPT 21 U/L (7.0-40); AST/SGOT 15 U/L (<34); BILIRUBIN,TOTAL 0.3 MG/DL (0.3-1.2); BLOOD UREA NITROGEN 8 MG/DL (9-23); CALCIUM LEVEL 8.9 MG/DL (8.5-10.1); CARBON DIOXIDE LEVEL 28 MMOL/L (20-31); CHLORIDE LEVEL 107 MMOL/L (98-107); CHOLESTEROL LEVEL 154 MG/DL (<200); CHOLESTEROL RISK RATIO 3.71 (<5); CREATININE FOR GFR 0.54 MG/DL (0.55-1.30); GLOMERULAR FILTRATION RATE > 60.0 (>51); GLUCOSE, FASTING 232 MG/DL (60-100); HDL CHOLESTEROL 41.5 MG/DL (>40); IRON (FE) 37 UG/DL (50-170); LDL CHOLESTEROL 68.1 MG/DL (<100); NON-HDL-C 112.5 MG/DL; PERCENT SATURATION 14.3 % (13.2-45.0); POTASSIUM SERUM 4.5 MMOL/L (3.5-5.1); SODIUM LEVEL 136 MMOL/L (136-145); TOTAL IRON BINDING CAPACITY 258 UG/DL (250-425); TOTAL PROTEIN 6.8 G/DL (5.7-8.2); TRIGLYCERIDES LEVEL 222 MG/DL (<150)
[2024-06-23 16:39] LABS: FREE T4 1.46 NG/DL (0.89-1.76); THYROID STIMULATING HORMONE 1.506 uIU/ML (0.55-4.78)
[2024-06-23 16:40] LABS: TOTAL 25(OH) VITAMIN D 26.5 NG/ML (20.0-100.0)
[2024-06-23 16:41] LABS: HEMOGLOBIN A1c 8.4 % (4.0-6.0); VITAMIN B12 LEVEL 754 PG/ML (211-911)
== END ==
LOC: M PLALAB 11:34
PROVIDERS: ATTEND Physician Assistant
DX: E11.51 Type 2 diabetes mellitus with diabetic peripheral angiopathy without gangrene (principal); E78.5 Hyperlipidemia, unspecified; E55.9 Vitamin D deficiency, unspecified; E66.01 Morbid (severe) obesity due to excess calories; D50.9 Iron deficiency anemia, unspecified

== ENCOUNTER → 2024-09-09 | Outpatient (REF) | payer MEDICARE, MEDICAID ==
[~2024-09-09] MED LIST changes: -DOXY-323 PO; +DOXY-441 PO; +GABA-1172 PO; -GABA-282 PO; +NYST1POW3 TOP; -NYST1POW9 TOP; -ROSU20TA61 PO; +ROSU20TA86 PO
[2024-09-09 18:34] LABS: BASO # 0.1 10^3/uL (0.0-0.2); EOS # 0.1 10^3/uL (0.0-0.5); EOS % 1.4 % (0.0-3.0); HEMATOCRIT 39.4 % (36.0-47.0); HEMOGLOBIN 12.6 g/dl (12.0-15.5); LYMPH # 3.4 10^3/uL (1.5-5.0); LYMPH % 37.1 % (24.0-44.0); MEAN CORPUSCULAR HEMOGLOBIN 27.5 pg (27.0-33.0); MEAN CORPUSCULAR VOLUME 85.8 fl (80.0-96.0); MONO # 0.4 10^3/uL (0.0-0.8); MONO % 3.8 % (2.0-8.0); NEUTROPHILS # 5.2 10^3/uL (1.5-8.5); NEUTROPHILS % 56.4 % (36.0-66.0); PLATELET COUNT, AUTOMATED 361 10^3/uL (150-450); RED BLOOD COUNT 4.59 10^6/uL (4.00-5.40); WHITE BLOOD COUNT 9.2 10^3/uL (4.0-10.0)
[2024-09-09 18:41] LABS: ALBUMIN 3.5 G/DL (3.2-5.2); ALKALINE PHOSPHATASE 95 U/L (35-104); ALT/SGPT 17 U/L (7.0-40); AST/SGOT 13 U/L (<34); BILIRUBIN,DIRECT < 0.1 MG/DL (<0.4); BILIRUBIN,TOTAL 0.3 MG/DL (0.3-1.2); BLOOD UREA NITROGEN 9 MG/DL (9-23); CALCIUM LEVEL 9.7 MG/DL (8.5-10.1); CARBON DIOXIDE LEVEL 28 MMOL/L (20-31); CHLORIDE LEVEL 107 MMOL/L (98-107); CREATININE FOR GFR 0.67 MG/DL (0.55-1.30); GLOMERULAR FILTRATION RATE > 60.0 (>51); GLUCOSE, FASTING 145 MG/DL (60-100); POTASSIUM SERUM 4.7 MMOL/L (3.5-5.1); SODIUM LEVEL 139 MMOL/L (136-145); TOTAL PROTEIN 7.3 G/DL (5.7-8.2)
[2024-09-09 18:51] LABS: ERYTHROCYTE SEDIMENTATION RATE 48 mm/hr (0-30)
== END ==
LOC: M SFHCRHEU 12:16
PROVIDERS: ATTEND Internal Medicine
DX: M05.79 Rheumatoid arthritis with rheumatoid factor of multiple sites without organ or systems involvement (principal)

== ENCOUNTER → 2024-11-23 | Outpatient (CLI) | payer MEDICARE, MEDICAID ==
[2024-11-23 15:06] LABS: FREE T4 1.07 NG/DL (0.89-1.76); THYROID STIMULATING HORMONE 1.512 uIU/ML (0.55-4.78)
[2024-11-23 15:07] LABS: TOTAL 25(OH) VITAMIN D 31.2 NG/ML (20.0-100.0)
[2024-11-23 15:08] LABS: ALBUMIN 3.6 G/DL (3.2-5.2); ALKALINE PHOSPHATASE 81 U/L (35-104); ALT/SGPT 18 U/L (7.0-40); AST/SGOT 16 U/L (<34); BILIRUBIN,TOTAL 0.4 MG/DL (0.3-1.2); BLOOD UREA NITROGEN 7 MG/DL (9-23); CALCIUM LEVEL 9.1 MG/DL (8.5-10.1); CARBON DIOXIDE LEVEL 29 MMOL/L (20-31); CHLORIDE LEVEL 106 MMOL/L (98-107); CHOLESTEROL LEVEL 144 MG/DL (<200); CHOLESTEROL RISK RATIO 2.92 (<5); CREATININE FOR GFR 0.66 MG/DL (0.55-1.30); GLOMERULAR FILTRATION RATE > 60.0 (>51); GLUCOSE, FASTING 105 MG/DL (60-100); HDL CHOLESTEROL 49.3 MG/DL (>40); LDL CHOLESTEROL 75.1 MG/DL (<100); NON-HDL-C 94.7 MG/DL; POTASSIUM SERUM 4.5 MMOL/L (3.5-5.1); SODIUM LEVEL 143 MMOL/L (136-145); TOTAL PROTEIN 7.1 G/DL (5.7-8.2); TRIGLYCERIDES LEVEL 98 MG/DL (<150)
[2024-11-23 15:28] LABS: HEMOGLOBIN A1c 6.5 % (4.0-6.0)
[2024-11-25 08:13] LABS: LDL DIRECT 77 mg/dL (<100)
== END ==
LOC: M PLALAB 10:32
PROVIDERS: ATTEND Nurse Practitioner Family
DX: E11.65 Type 2 diabetes mellitus with hyperglycemia (principal); M05.79 Rheumatoid arthritis with rheumatoid factor of multiple sites without organ or systems involvement; Z79.4 Long term (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 insulin

== ENCOUNTER → 2024-11-23 | Outpatient (CLI) | payer MEDICARE, MEDICAID ==
[2024-11-23 14:38] LABS: BLOOD UREA NITROGEN 7 MG/DL (9-23); CALCIUM LEVEL 9.2 MG/DL (8.5-10.1); CARBON DIOXIDE LEVEL 30 MMOL/L (20-31); CHLORIDE LEVEL 107 MMOL/L (98-107); CREATININE FOR GFR 0.64 MG/DL (0.55-1.30); GLOMERULAR FILTRATION RATE > 60.0 (>51); GLUCOSE, FASTING 106 MG/DL (60-100); POTASSIUM SERUM 4.5 MMOL/L (3.5-5.1); SODIUM LEVEL 143 MMOL/L (136-145)
== END ==
LOC: M PLALAB 10:27
PROVIDERS: ATTEND Internal Medicine
DX: M05.79 Rheumatoid arthritis with rheumatoid factor of multiple sites without organ or systems involvement (principal)

== ENCOUNTER → 2024-12-02 | Outpatient (REF) | payer MEDICARE, MEDICAID | LOC: M SFHCRHEU 12:52 | PROVIDERS: ATTEND Internal Medicine | DX: M05.79 Rheumatoid arthritis with rheumatoid factor of multiple sites without organ or systems involvement (principal) ==

== ENCOUNTER → 2024-12-16 | Outpatient (CLI) | payer MEDICARE, MEDICAID ==
[2024-12-16 18:19] LABS: BASO # 0.1 10^3/uL (0.0-0.2); EOS # 0.2 10^3/uL (0.0-0.5); EOS % 1.7 % (0.0-3.0); HEMATOCRIT 39.7 % (36.0-47.0); HEMOGLOBIN 12.8 g/dl (12.0-15.5); LYMPH % 42.4 % (24.0-44.0); MEAN CORPUSCULAR HEMOGLOBIN 28.3 pg (27.0-33.0); MEAN CORPUSCULAR HGB CONC 32.2 g/dl (32.0-36.5); MEAN CORPUSCULAR VOLUME 87.6 fl (80.0-96.0); MONO # 0.5 10^3/uL (0.0-0.8); MONO % 4.8 % (2.0-8.0); NEUTROPHILS # 4.7 10^3/uL (1.5-8.5); PLATELET COUNT, AUTOMATED 376 10^3/uL (150-450); RED BLOOD COUNT 4.53 10^6/uL (4.00-5.40); WHITE BLOOD COUNT 9.5 10^3/uL (4.0-10.0)
[2024-12-16 18:33] LABS: ERYTHROCYTE SEDIMENTATION RATE 37 mm/hr (0-30)
[2024-12-16 18:43] LABS: ALBUMIN 3.4 G/DL (3.2-5.2); ALKALINE PHOSPHATASE 89 U/L (35-104); ALT/SGPT 17 U/L (7.0-40); AST/SGOT 16 U/L (<34); BILIRUBIN,DIRECT 0.1 MG/DL (<0.4); BILIRUBIN,TOTAL 0.3 MG/DL (0.3-1.2); C REACTIVE PROTEIN QUANTITATIV < 0.50 MG/DL (<1.0); TOTAL PROTEIN 7.1 G/DL (5.7-8.2)
== END ==
LOC: M PLALAB 14:31
PROVIDERS: ATTEND Internal Medicine
DX: M05.79 Rheumatoid arthritis with rheumatoid factor of multiple sites without organ or systems involvement (principal)

== ENCOUNTER → 2025-01-24 | Outpatient (CLI) | payer MEDICARE, MEDICAID ==
[2025-01-24 15:22] LABS: BASO # 0.1 10^3/uL (0.0-0.2); BASO % 0.7 % (0.0-1.0); EOS # 0.1 10^3/uL (0.0-0.5); EOS % 0.6 % (0.0-3.0); HEMATOCRIT 38.1 % (36.0-47.0); HEMOGLOBIN 12.6 g/dl (12.0-15.5); LYMPH # 3.8 10^3/uL (1.5-5.0); LYMPH % 36.9 % (24.0-44.0); MEAN CORPUSCULAR HEMOGLOBIN 28.9 pg (27.0-33.0); MEAN CORPUSCULAR HGB CONC 33.1 g/dl (32.0-36.5); MEAN CORPUSCULAR VOLUME 87.4 fl (80.0-96.0); MONO # 0.5 10^3/uL (0.0-0.8); MONO % 5.1 % (2.0-8.0); NEUTROPHILS # 5.9 10^3/uL (1.5-8.5); NEUTROPHILS % 56.5 % (36.0-66.0); PLATELET COUNT, AUTOMATED 350 10^3/uL (150-450); RED BLOOD COUNT 4.36 10^6/uL (4.00-5.40); WHITE BLOOD COUNT 10.4 10^3/uL (4.0-10.0)
[2025-01-24 15:26] LABS: ALBUMIN 3.6 G/DL (3.2-5.2); ALKALINE PHOSPHATASE 75 U/L (35-104); ALT/SGPT 12 U/L (7.0-40); AST/SGOT 13 U/L (<34); BILIRUBIN,DIRECT < 0.1 MG/DL (<0.4); BILIRUBIN,TOTAL 0.3 MG/DL (0.3-1.2); BLOOD UREA NITROGEN 9 MG/DL (9-23); C REACTIVE PROTEIN QUANTITATIV < 0.50 MG/DL (<1.0); CALCIUM LEVEL 9.2 MG/DL (8.5-10.1); CARBON DIOXIDE LEVEL 27 MMOL/L (20-31); CHLORIDE LEVEL 105 MMOL/L (98-107); CREATININE FOR GFR 0.72 MG/DL (0.55-1.30); GLOMERULAR FILTRATION RATE > 60.0 (>51); GLUCOSE, FASTING 102 MG/DL (60-100); POTASSIUM SERUM 4.5 MMOL/L (3.5-5.1); SODIUM LEVEL 141 MMOL/L (136-145); TOTAL PROTEIN 7.2 G/DL (5.7-8.2)
[2025-01-24 15:28] LABS: ERYTHROCYTE SEDIMENTATION RATE 38 mm/hr (0-30)
== END ==
LOC: M PLALAB 12:40
PROVIDERS: ATTEND Internal Medicine
DX: M05.79 Rheumatoid arthritis with rheumatoid factor of multiple sites without organ or systems involvement (principal)

== ENCOUNTER → 2025-06-01 | Outpatient (CLI) | payer MEDICARE, MEDICAID ==
[~2025-06-01] MED LIST changes: -AMBI10TA PO; -AMBI5TAB PO; -GLUC1KIT IM; +GLUC1VIA14 IM; +LIDO1ADH93 TD; -LIDO5DIS41 TD; +METF-1113 PO; -METF-723 PO; +ZOLP-532 PO; +ZOLP-533 PO
[2025-06-01 15:28] LABS: BASO # 0.1 10^3/uL (0.0-0.2); BASO % 0.9 % (0.0-1.0); EOS # 0.1 10^3/uL (0.0-0.5); EOS % 1.4 % (0.0-3.0); LYMPH # 4.3 10^3/uL (1.5-5.0); LYMPH % 45.1 % (24.0-44.0); MONO # 0.5 10^3/uL (0.0-0.8); MONO % 5.1 % (2.0-8.0); NEUTROPHILS # 4.5 10^3/uL (1.5-8.5); NEUTROPHILS % 47.3 % (36.0-66.0); PLATELET COUNT, AUTOMATED 392 10^3/uL (150-450)
[2025-06-01 15:45] LABS: C REACTIVE PROTEIN QUANTITATIV < 0.50 MG/DL (<1.0)
[2025-06-01 15:46] LABS: ALT/SGPT 20 U/L (7.0-40); AST/SGOT 19 U/L (<34); CALCIUM LEVEL 9.6 MG/DL (8.5-10.1); CARBON DIOXIDE LEVEL 28 MMOL/L (20-31); CHLORIDE LEVEL 102 MMOL/L (98-107); CREATININE FOR GFR 0.65 MG/DL (0.55-1.30); GLOMERULAR FILTRATION RATE > 90.0 (>51); POTASSIUM SERUM 4.3 MMOL/L (3.5-5.1); SODIUM LEVEL 140 MMOL/L (136-145)
[2025-06-01 16:32] LABS: ERYTHROCYTE SEDIMENTATION RATE 51 mm/hr (0-30)
== END ==
LOC: M PLALAB 14:07
PROVIDERS: ATTEND Internal Medicine
DX: M05.79 Rheumatoid arthritis with rheumatoid factor of multiple sites without organ or systems involvement (principal)

== ENCOUNTER → 2025-06-24 | Outpatient (REF) | payer MEDICARE, MEDICAID ==
[2025-06-24 18:12] LABS: APPEARANCE, URINE CLOUDY (CLEAR); BACTERIA, URINE AUTO 3+ (NEGATIVE); BILIRUBIN, URINE AUTO NEGATIVE (NEGATIVE); BLOOD, URINE BLOOD 1+ (NEGATIVE); GLUCOSE, URINE (UA) AUTO NEGATIVE (NEGATIVE); KETONE, URINE AUTO NEGATIVE (NEGATIVE); LEUKOCYTE ESTERASE, URINE AUTO 3+ (NEGATIVE); MUCUS, URINE SMALL (NEGATIVE); NITRITE, URINE AUTO NEGATIVE (NEGATIVE); PROTEIN, URINE AUTO 1+ mg/dL (NEGATIVE); RBC, URINE AUTO 13 /HPF (0-3); SPECIFIC GRAVITY URINE AUTO 1.015 (1.002-1.035); SQUAMOUS EPITHELIAL CELL UR AU 32 /HPF (0-6); UROBILINOGEN, URINE AUTO 0.2 mg/dL (0.0-2.0); WBC, URINE AUTO TNTC /HPF (0-3)
== END ==
LOC: M SFHCPLAZ 16:45
PROVIDERS: ATTEND Physician Assistant Medical
DX: N39.0 Urinary tract infection, site not specified (principal)

== ENCOUNTER → 2025-07-26 | Outpatient (CLI) | payer MEDICARE, MEDICAID ==
[~2025-07-26] MED LIST changes: -METF-1113 PO; +METF-1201 PO; -ZOLP5TAB PO; +ZOLP5TAB9 PO
[2025-07-26 16:25] LABS: BASO # 0.1 10^3/uL (0.0-0.2); BASO % 0.8 % (0.0-1.0); EOS # 0.1 10^3/uL (0.0-0.5); EOS % 1.4 % (0.0-3.0); LYMPH # 4.0 10^3/uL (1.5-5.0); LYMPH % 39.9 % (24.0-44.0); MONO # 0.5 10^3/uL (0.0-0.8); MONO % 4.7 % (2.0-8.0); NEUTROPHILS # 5.3 10^3/uL (1.5-8.5); NEUTROPHILS % 53.0 % (36.0-66.0); PLATELET COUNT, AUTOMATED 343 10^3/uL (150-450)
[2025-07-26 16:35] LABS: ERYTHROCYTE SEDIMENTATION RATE 38 mm/hr (0-30)
[2025-07-26 16:47] LABS: C REACTIVE PROTEIN QUANTITATIV 0.69 MG/DL (<1.0)
[2025-07-26 17:17] LABS: ALT/SGPT 24 U/L (7.0-40); AST/SGOT 27 U/L (<34); CALCIUM LEVEL 9.5 MG/DL (8.5-10.1); CARBON DIOXIDE LEVEL 26 MMOL/L (20-31); CHLORIDE LEVEL 104 MMOL/L (98-107); CREATININE FOR GFR 0.66 MG/DL (0.55-1.30); GLOMERULAR FILTRATION RATE > 90.0 (>51); POTASSIUM SERUM 4.5 MMOL/L (3.5-5.1); SODIUM LEVEL 137 MMOL/L (136-145)
== END ==
LOC: M PLALAB 14:17
PROVIDERS: ATTEND Internal Medicine
DX: M05.79 Rheumatoid arthritis with rheumatoid factor of multiple sites without organ or systems involvement (principal)

== ENCOUNTER → 2025-08-10 | Outpatient (REF) | payer MEDICARE, MEDICAID ==
[2025-08-10 18:44] LABS: APPEARANCE, URINE CLOUDY (CLEAR); BACTERIA, URINE AUTO 3+ (NEGATIVE); BILIRUBIN, URINE AUTO NEGATIVE (NEGATIVE); BLOOD, URINE BLOOD 3+ (NEGATIVE); GLUCOSE, URINE (UA) AUTO NEGATIVE (NEGATIVE); KETONE, URINE AUTO NEGATIVE (NEGATIVE); LEUKOCYTE ESTERASE, URINE AUTO 3+ (NEGATIVE); MUCUS, URINE SMALL (NEGATIVE); NITRITE, URINE AUTO NEGATIVE (NEGATIVE); PROTEIN, URINE AUTO 1+ mg/dL (NEGATIVE); RBC, URINE AUTO 74 /HPF (0-3); SPECIFIC GRAVITY URINE AUTO 1.008 (1.002-1.035); SQUAMOUS EPITHELIAL CELL UR AU 9 /HPF (0-6); UROBILINOGEN, URINE AUTO 0.2 mg/dL (0.0-2.0); WBC, URINE AUTO TNTC /HPF (0-3)
== END ==
LOC: M SMT 16:53
PROVIDERS: ATTEND Urology
DX: Z87.440 Personal history of urinary (tract) infections (principal); Z79.899 Other long term (current) drug therapy

== ENCOUNTER → 2025-09-01 | Outpatient (REF) | payer MEDICARE, MEDICAID ==
[2025-09-01 15:39] LABS: APPEARANCE, URINE CLOUDY (CLEAR); BACTERIA, URINE AUTO 3+ (NEGATIVE); BILIRUBIN, URINE AUTO NEGATIVE (NEGATIVE); BLOOD, URINE BLOOD 2+ (NEGATIVE); GLUCOSE, URINE (UA) AUTO NEGATIVE (NEGATIVE); KETONE, URINE AUTO NEGATIVE (NEGATIVE); LEUKOCYTE ESTERASE, URINE AUTO 3+ (NEGATIVE); NITRITE, URINE AUTO NEGATIVE (NEGATIVE); PROTEIN, URINE AUTO 1+ mg/dL (NEGATIVE); RBC, URINE AUTO 68 /HPF (0-3); SPECIFIC GRAVITY URINE AUTO 1.013 (1.002-1.035); SQUAMOUS EPITHELIAL CELL UR AU 33 /HPF (0-6); UROBILINOGEN, URINE AUTO 0.2 mg/dL (0.0-2.0); WBC, URINE AUTO TNTC /HPF (0-3)
== END ==
LOC: M SMT 15:00
PROVIDERS: ATTEND Urology
DX: N39.0 Urinary tract infection, site not specified (principal)

== ENCOUNTER → 2025-09-27 | Outpatient (REF) | payer MEDICARE, MEDICAID ==
[2025-09-27 15:31] LABS: APPEARANCE, URINE CLOUDY (CLEAR); BACTERIA, URINE AUTO 2+ (NEGATIVE); BILIRUBIN, URINE AUTO NEGATIVE (NEGATIVE); BLOOD, URINE BLOOD 3+ (NEGATIVE); GLUCOSE, URINE (UA) AUTO NEGATIVE (NEGATIVE); KETONE, URINE AUTO NEGATIVE (NEGATIVE); LEUKOCYTE ESTERASE, URINE AUTO 3+ (NEGATIVE); MUCUS, URINE SMALL (NEGATIVE); NITRITE, URINE AUTO POSITIVE (NEGATIVE); PROTEIN, URINE AUTO 2+ mg/dL (NEGATIVE); RBC, URINE AUTO TNTC /HPF (0-3); SPECIFIC GRAVITY URINE AUTO 1.010 (1.002-1.035); SQUAMOUS EPITHELIAL CELL UR AU 5 /HPF (0-6); TRANSITIONAL EPITHELIAL AUTO 1 /HPF; UROBILINOGEN, URINE AUTO 0.2 mg/dL (0.0-2.0); WBC, URINE AUTO TNTC /HPF (0-3)
[2025-09-27 15:59] LABS: CALCIUM LEVEL 8.8 MG/DL (8.5-10.1); CARBON DIOXIDE LEVEL 28 MMOL/L (20-31); CHLORIDE LEVEL 103 MMOL/L (98-107); CREATININE FOR GFR 0.77 MG/DL (0.55-1.30); GLOMERULAR FILTRATION RATE > 90.0 (>51); POTASSIUM SERUM 4.3 MMOL/L (3.5-5.1); SODIUM LEVEL 140 MMOL/L (136-145)
== END ==
LOC: M PLALAB 14:59
PROVIDERS: ATTEND Urology
DX: R39.9 Unspecified symptoms and signs involving the genitourinary system (principal); N39.498 Other specified urinary incontinence

== ENCOUNTER → 2025-09-27 | Outpatient (REF) | payer MEDICARE, MEDICAID ==
[~2025-09-27] MED LIST changes: +ACET-683 PO; +AMOX500C PO; +AMPI500C9 PO; -BACTDSTA PO; +CLOBETASOL TOP; +ERTA1INJ3 IV; +GLUC1AUT2 SQ; +HYDR-3364 PO; +INSU100V3 SQ; +INSULANT SC; +MYRB50TA PO; +ONDA-83 PO; +OSEL75CA2 PO; +RISATAB3 PO; +SEMA2PEN SQ; +SULF-8 PO; +TAB-TAB3 PO; +TRAZ-252 PO
[2025-09-27 15:27] LABS: BASO # 0.1 10^3/uL (0.0-0.2); BASO % 0.9 % (0.0-1.0); EOS # 0.2 10^3/uL (0.0-0.5); EOS % 1.6 % (0.0-3.0); LYMPH # 3.4 10^3/uL (1.5-5.0); LYMPH % 37.2 % (24.0-44.0); MONO # 0.4 10^3/uL (0.0-0.8); MONO % 4.1 % (2.0-8.0); NEUTROPHILS # 5.2 10^3/uL (1.5-8.5); NEUTROPHILS % 56.0 % (36.0-66.0); PLATELET COUNT, AUTOMATED 345 10^3/uL (150-450)
[2025-09-27 16:00] LABS: C REACTIVE PROTEIN QUANTITATIV 0.54 MG/DL (<1.0)
[2025-09-27 16:03] LABS: ALT/SGPT 18 U/L (7.0-40); AST/SGOT 22 U/L (<34); CALCIUM LEVEL 8.8 MG/DL (8.5-10.1); CARBON DIOXIDE LEVEL 29 MMOL/L (20-31); CHLORIDE LEVEL 103 MMOL/L (98-107); CREATININE FOR GFR 0.77 MG/DL (0.55-1.30); GLOMERULAR FILTRATION RATE > 90.0 (>51); POTASSIUM SERUM 4.2 MMOL/L (3.5-5.1); SODIUM LEVEL 140 MMOL/L (136-145)
== END ==
LOC: M PLALAB 15:03
PROVIDERS: ATTEND Internal Medicine
DX: M05.79 Rheumatoid arthritis with rheumatoid factor of multiple sites without organ or systems involvement (principal); R39.9 Unspecified symptoms and signs involving the genitourinary system; N39.498 Other specified urinary incontinence

== ENCOUNTER 2025-10-28 16:28 | Inpatient (IN) | payer MEDICARE, MEDICAID ==
[~2025-10-28] VITALS: Ht 170.2 cm; Wt 89.3 kg
[~2025-10-28 16:28] MED LIST changes: -AMOX500C PO; -AMPI500C9 PO
[2025-10-28 18:27] LABS: BASO # 0.1 10^3/uL (0.0-0.2); BASO % 1.1 % (0.0-1.0); EOS # 0.2 10^3/uL (0.0-0.5); EOS % 1.9 % (0.0-3.0); LYMPH # 4.1 10^3/uL (1.5-5.0); LYMPH % 47.9 % (24.0-44.0); MONO # 0.3 10^3/uL (0.0-0.8); MONO % 4.0 % (2.0-8.0); NEUTROPHILS # 3.9 10^3/uL (1.5-8.5); NEUTROPHILS % 45.0 % (36.0-66.0); PLATELET COUNT, AUTOMATED 337 10^3/uL (150-450)
[2025-10-28 18:48] LABS: INR 1.03
[2025-10-28 18:49] LABS: ALT/SGPT 25 U/L (7.0-40); AST/SGOT 26 U/L (<34); C REACTIVE PROTEIN QUANTITATIV < 0.50 MG/DL (<1.0); CALCIUM LEVEL 9.0 MG/DL (8.5-10.1); CARBON DIOXIDE LEVEL 28 MMOL/L (20-31); CHLORIDE LEVEL 106 MMOL/L (98-107); CREATININE FOR GFR 0.64 MG/DL (0.55-1.30); GLOMERULAR FILTRATION RATE > 90.0 (>51); POTASSIUM SERUM 3.9 MMOL/L (3.5-5.1); SODIUM LEVEL 142 MMOL/L (136-145)
[2025-10-28] MEDS: ERTAPENEM SODIUM 1 GM in NS MINI-BAG PLUS 50 ML IV ONE (20:56)
[2025-10-28] MEDS ORDERED: MOM 30 ML SUSPENSION UDC PO PRN (22:00)
[2025-10-28] MEDS ORDERED: NYSTATIN 100,000 UNITS/GM TOPICAL PWD 15 GM TOP PRN (22:05)
[2025-10-28] MEDS ORDERED: HOME MED LIST COMPLETE! XX SCH (22:15)
[2025-10-28 23:24] VITALS: BP 152/70; TEMP 98.2; O2SAT 98
[2025-10-28] MEDS: traMADol 50 MG TAB PO PRN (23:33)
[2025-10-29] MEDS: APIXABAN 5 MG TAB PO SCH (00:13)
[2025-10-29] MEDS: traZODone 50 MG TAB PO SCH (00:13)
[2025-10-29] MEDS: PANTOPRAZOLE 40MG TAB PO SCH (00:13)
[2025-10-29] MEDS: ROSUVASTATIN 10 MG TAB PO SCH (00:14)
[2025-10-29] MEDS ORDERED: GLUCOSE 4 GM CHEW PO PRN (03:45)
[2025-10-29] MEDS ORDERED: GLUCAGON INJ 1 MG VIAL SC PRN (03:45)
[2025-10-29] MEDS ORDERED: DEXTROSE 50% 50 ML SYRINGE IV PRN (03:45)
[2025-10-29 05:45] VITALS: BP 107/53; TEMP 98.2; O2SAT 100
[2025-10-29 06:38] LABS: PLATELET COUNT, AUTOMATED 294 10^3/uL (150-450)
[2025-10-29 07:02] LABS: CALCIUM LEVEL 8.6 MG/DL (8.5-10.1); CARBON DIOXIDE LEVEL 30 MMOL/L (20-31); CHLORIDE LEVEL 106 MMOL/L (98-107); CREATININE FOR GFR 0.71 MG/DL (0.55-1.30); GLOMERULAR FILTRATION RATE > 90.0 (>51); POTASSIUM SERUM 4.0 MMOL/L (3.5-5.1); SODIUM LEVEL 143 MMOL/L (136-145)
[2025-10-29] MEDS: METOPROLOL SUCC. 25 MG *XL* TAB PO SCH (09:00)
[2025-10-29] MEDS: LanTUS (INSULIN GLARGINE INJ) 1 UNITS/0.01 ML SC SCH (09:05)
[2025-10-29] MEDS: INSULIN LISPRO (NovoLOG) PER UNIT SC SCH (09:05)
[2025-10-29] MEDS: ACETAMINOPHEN 500 MG TAB PO PRN (09:06)
[2025-10-29 14:24] VITALS: BP 116/62; TEMP 98; O2SAT 96
[2025-10-29 21:14] VITALS: BP 108/55; TEMP 98.2; O2SAT 97
[2025-10-29] MEDS: ERTAPENEM SODIUM 1 GM in NS MINI-BAG PLUS 50 ML IV SCH (21:38)
[2025-10-30] MEDS: KETOROLAC 30 MG/ML 1 ML VIAL IV ONE (00:16)
[2025-10-30 05:45] VITALS: BP 103/50; TEMP 97.9; O2SAT 95
[2025-10-30 07:27] LABS: PLATELET COUNT, AUTOMATED 257 10^3/uL (150-450)
[2025-10-30 07:58] LABS: CALCIUM LEVEL 8.7 MG/DL (8.5-10.1); CARBON DIOXIDE LEVEL 28 MMOL/L (20-31); CHLORIDE LEVEL 105 MMOL/L (98-107); CREATININE FOR GFR 0.68 MG/DL (0.55-1.30); GLOMERULAR FILTRATION RATE > 90.0 (>51); MAGNESIUM LEVEL 2.0 MG/DL (1.8-2.4); POTASSIUM SERUM 3.9 MMOL/L (3.5-5.1); SODIUM LEVEL 141 MMOL/L (136-145)
[2025-10-30] MEDS: LanTUS (INSULIN GLARGINE INJ) 1 UNITS/0.01 ML SC SCH (09:00)
[2025-10-30] MEDS: ONDANSETRON 4MG/2ML VIAL IV PRN (09:08)
[2025-10-30] MEDS: AMPICILLIN SOD 1 GM in DEXTROSE 5% (D5W) ADV/MINI-BAG 100 ML IV SCH (12:48)
[2025-10-30 14:00] VITALS: BP 113/59; TEMP 97.7; O2SAT 99
[2025-10-30 19:50] VITALS: BP 100/58; TEMP 97.6; O2SAT 95
[2025-10-31 06:00] VITALS: BP 117/58; TEMP 97.2; O2SAT 97
[2025-10-31 06:32] LABS: PLATELET COUNT, AUTOMATED 286 10^3/uL (150-450)
[2025-10-31 06:53] LABS: CALCIUM LEVEL 8.6 MG/DL (8.5-10.1); CARBON DIOXIDE LEVEL 29 MMOL/L (20-31); CHLORIDE LEVEL 107 MMOL/L (98-107); CREATININE FOR GFR 0.70 MG/DL (0.55-1.30); GLOMERULAR FILTRATION RATE > 90.0 (>51); MAGNESIUM LEVEL 1.9 MG/DL (1.8-2.4); POTASSIUM SERUM 4.0 MMOL/L (3.5-5.1); SODIUM LEVEL 143 MMOL/L (136-145)
[2025-10-31 08:04] VITALS: BP 118/59
[2025-10-31] MEDS ORDERED: AMPI500C9 PO (10:02)
[2025-10-31] MEDS ORDERED: AMOX500C PO (10:48)
== END 2025-10-31 11:05 | disposition home health service (06) | DRG 690 ==
LOC: M ED 16:28 → M ED INP 21:57 → M MS5PR 23:06
PROVIDERS: ADMIT Student in an Organized Health Care Education/Training Program; ATTEND Family Medicine
DX: N39.0 Urinary tract infection, site not specified (principal); E11.42 Type 2 diabetes mellitus with diabetic polyneuropathy; M54.9 Dorsalgia, unspecified; G89.29 Other chronic pain; F32.A Depression, unspecified; N32.81 Overactive bladder; G43.909 Migraine, unspecified, not intractable, without status migrainosus; E66.9 Obesity, unspecified; N81.10 Cystocele, unspecified; N20.0 Calculus of kidney; B95.2 Enterococcus as the cause of diseases classified elsewhere; R19.7 Diarrhea, unspecified; Z79.01 Long term (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 anticoagulants; Z79.899 Other long term (current) drug therapy; Z79.4 Long term (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 insulin; Z88.5 Allergy status to narcotic agent; Z91.018 Allergy to other foods; Z91.040 Latex allergy status; Z68.30 Body mass index [BMI] 30.0-30.9, adult; Z86.718 Personal history of other venous thrombosis and embolism; Z89.512 Acquired absence of left leg below knee

== ENCOUNTER → 2025-10-28 | Outpatient (REF) | payer MEDICARE, MEDICAID ==
[~2025-10-28] MED LIST changes: -ERTA1INJ3 IV; -OSEL75CA2 PO
[2025-10-28 17:33] LABS: APPEARANCE, URINE HAZY (CLEAR); BACTERIA, URINE AUTO 1+ (NEGATIVE); BILIRUBIN, URINE AUTO NEGATIVE (NEGATIVE); BLOOD, URINE BLOOD 3+ (NEGATIVE); GLUCOSE, URINE (UA) AUTO NEGATIVE (NEGATIVE); KETONE, URINE AUTO NEGATIVE (NEGATIVE); LEUKOCYTE ESTERASE, URINE AUTO 3+ (NEGATIVE); MUCUS, URINE SMALL (NEGATIVE); NITRITE, URINE AUTO NEGATIVE (NEGATIVE); PROTEIN, URINE AUTO 1+ mg/dL (NEGATIVE); RBC, URINE AUTO 73 /HPF (0-3); SPECIFIC GRAVITY URINE AUTO 1.011 (1.002-1.035); SQUAMOUS EPITHELIAL CELL UR AU 9 /HPF (0-6); UROBILINOGEN, URINE AUTO 0.2 mg/dL (0.0-2.0); WBC, URINE AUTO 125 /HPF (0-3)
== END ==
LOC: M SFHCPLAZ 16:39
DX: A48.8 Other specified bacterial diseases (principal)